=== PATIENT | male | born 1960 | race Asian ===

== ENCOUNTER 2018-09-13 11:48 | Inpatient (IN) | payer OTHER ==
[~2018-09-13] VITALS: Ht 157.5 cm; Wt 56.2 kg
[2018-09-13] VITALS (11 sets, daily range): BP systolic 81–182; BP diastolic 45–84; PULSE 88–108; RESP 15–21; Ht 157.5 cm; Wt 56.2 kg
[~2018-09-13 11:48] MED LIST: POTASSIUM CHLORIDE 20 MEQ/SW 100 ML IVPB ONE
--- NOTE | 2018-09-13 12:21 | HPN ---
Date/Time of Note Date/Time of Note DATE: 09/13/18 TIME: 12:21 Interval H&P Admission Note Pt. seen H&P reviewed: No system changes AMARILIS RIBERA MD September 13, 2018 12:21
[2018-09-13] MEDS ORDERED: LABE100T7 PO (12:48)
[2018-09-13] MEDS ORDERED: PRAV10TA43 PO (12:48)
[2018-09-13] MEDS ORDERED: FOLI-49 PO (12:51)
[2018-09-13] MEDS ORDERED: PRAV20TA63 PO (12:52)
[2018-09-13] MEDS ORDERED: CLOP75TA27 PO (12:52)
[2018-09-13] MEDS ORDERED: LEFL20TA PO (12:55)
[2018-09-13] MEDS ORDERED: NIFE30TA23 PO (12:55)
[2018-09-13] MEDS ORDERED: IRON150C5 PO (12:56)
[2018-09-13] MEDS ORDERED: PHOS250T2 PO (12:58)
[2018-09-13] MEDS ORDERED: NEPH PO (12:58)
[2018-09-13] MEDS ORDERED: LEFL20TA18 PO (13:00)
[2018-09-13] MEDS ORDERED: TACR1CAP PO (13:00)
[2018-09-13] MEDS ORDERED: CALC0.5C10 PO (13:01)
--- NOTE | 2018-09-13 14:09 | PREAC ---
Date/Time of Note Date/Time of Note DATE: 09/13/18 TIME: 14:07 Anesthesia Eval and Record Evaluation Time Pre-Procedure Interview DATE: 09/13/18 TIME: 14:07 Age 58 Sex male NPO: 8 hrs Preoperative diagnosis Lt leg PVD Planned procedure Lt BKA Past Medical History Past Medical History: Includes Cardio: HTN, Dyslipidemia Renal: CKD, Other (S/P kidney transplant) Surgery & Anesthesia Issues No known issue Meds Anticoagulation: Yes Beta Claudine within 24 hr: Yes Reported Medications Calcitriol* (Calcitriol*) 0.5 Mcg Capsule, 0.5 MCG PO TID, CAP 09/13/18 Leflunomide* (Leflunomide*) 20 Mg Tablet, 20 MG PO BID, #30 TAB 09/13/18 Tacrolimus* (Tacrolimus*) 1 Mg Capsule, 1 MG PO TID, CAP 09/13/18 Multivit/Ca Carb/B Cmplx/Fa* (Flor-Elisa*) 1 Tab Tab, 1 TAB PO DAILY, TAB 09/13/18 Phosphorus #1 (Phospha 250 Neutral Tablet) 250 Mg Tablet, 1000 MG PO BID, TAB 09/13/18 Iron Polysaccharides Complex (Ferrex 150) 150 Mg Capsule, 150 MG PO BID, #30 CAP 09/13/18 Nifedipine* (Nifedipine ER*) 30 Mg Tablet.sa, 30 MG PO DAILY, TAB.SA 09/13/18 Leflunomide* (Arava*) 20 Mg Tablet, 20 MG PO BID, TAB 09/13/18 Pravastatin Sodium* (Pravastatin Sodium*) 20 Mg Tablet, 20 MG PO HS, TAB 09/13/18 Clopidogrel Bisulfate (Clopidogrel) 75 Mg Tablet, 75 MG PO DAILY, #30 TAB 09/13/18 Folic Acid* (Folic Acid*) 1 Mg Tablet, 1 MG PO DAILY, TAB 09/13/18 Labetalol Hcl* (Labetalol Hcl*) 100 Mg Tablet, 100 MG PO BID, TAB 09/13/18 Discontinued Reported Medications Pravastatin Sodium* (Pravastatin Sodium*) 10 Mg Tablet, 5 MG PO HS, TAB 09/13/18 Meds reviewed: Yes Allergies Coded Allergies: No Known Allergy (Unverified , 09/13/18) Allergies Reviewed: Yes Labs/Studies Labs Reviewed: Reviewed by anesthesiologist Result Diagram: 09/13/18 1254 09/13/18 1254 Laboratory Tests 09/13/18 12:54 test: N/A Studies: ECG Pre-procedure Exam Last vitals Vital Signs Date Temp Pulse Resp B/P (MAP) Pulse Ox O2 O2 Flow FiO2 Time Delivery Rate 09/13/18 98.7 96 16 182/84 97 Room Air 13:11 (116) Airway: Adequate mouth opening, Adequate thyromental dist Mallampati: Mallampati II Teeth: Normal Lung: Normal Heart: Normal ASA Physical Status ASA physical status: 3 Emergency: None Planned Anesthetic General/MAC: LMA, MAC Neuraxial: Spinal Planned Pain Management Sub-arachniod narcotics, Parenteral pain med Pre-operative Attestations Prior to commencing anesthesia and surgery, the patient was re-evaluated, there was verification of: *The patient's identity *The results of appropriate recent lab work and preoperative vital signs *The above evaluation not changing prior to induction *Anesthetic plan, risk benefits, alternative and complications discussed with patient/family; questions answered; patient/family understands, accepts and wishes to proceed. DION GALVAN MD September 13, 2018 14:09
[2018-09-13] MEDS ORDERED: FENTAnyl 50 MCG/ML VIAL ONE ×2 (14:14→14:45)
[2018-09-13] MEDS ORDERED: MIDAZOLAM 1 MG/ML 2 ML INJ ONE (14:15)
[2018-09-13] MEDS ORDERED: morphine SULFATE/PF (10 MG/10 ML) INJ ONE (14:16)
[2018-09-13] MEDS ORDERED: VANCOMYCIN 1 GM (PMX) 250 ML ONE (14:38)
[2018-09-13] MEDS ORDERED: METOPROLOL 5 MG INJ ONE ×3 (14:42→15:58)
[2018-09-13] MEDS ORDERED: hydrALAzine 20 MG INJ ONE ×2 (14:45→15:07)
[2018-09-13] MEDS ORDERED: POLYMYXIN B 500000 UNIT INJ ONE (14:55)
[2018-09-13] MEDS ORDERED: BACITRACIN 50000 UNITS INJ IRR ONE (15:07)
[2018-09-13] MEDS ORDERED: LABETALOL HCL 20MG INJ ONE (15:29)
[2018-09-13] MEDS ORDERED: nitroGLYCerin 50 MG INJ ONE (15:30)
--- NOTE | 2018-09-13 15:48 | SIPON ---
Date/Time of Note Date/Time of Note DATE: 09/13/18 TIME: 15:46 Operative Report Preoperative Diagnosis L foot gangrene Postoperative Diagnosis same Operation/Procedure Performed L BKA Surgeon see signature line assistant child care teacher none Anesthesia: spinal Estimated blood loss: 50 - 100 ml's Transfusion Required none Specimen L lower leg - severe necrotizing infection to the ankle Grafts/Implants none Complications none AMARILIS RIBERA MD September 13, 2018 15:48
[2018-09-13] MEDS ORDERED: MEPERIDINE 100 MG INJ ONE (15:49)
--- NOTE | 2018-09-13 16:19 | PAC ---
Date/Time of Note Date/Time of Note DATE: 09/13/18 TIME: 16:19 Post-Anesthesia Notes Post-Anesthesia Note Last documented vital signs Vital Signs Date Temp Pulse Resp B/P (MAP) Pulse Ox O2 O2 Flow FiO2 Time Delivery Rate 09/13/18 98.7 96 16 182/84 97 Room Air 13:11 (116) Activity: WNL Respiratory function: WNL Cardiovascular function: WNL Mental status: Baseline Pain reasonably controlled: Yes Hydration appropriate: Yes Nausea/Vomiting absent: Yes Comments BP:110/76, P:102, Spo2:100%, T:99,6 DION GALVAN MD September 13, 2018 16:19
[2018-09-13] MEDS ORDERED: DIPHENHYDRAMINE 50 MG INJ IV PRN (16:30)
[2018-09-13] MEDS ORDERED: LABETALOL HCL 20MG INJ IV PRN (16:30)
[2018-09-13] MEDS ORDERED: hydrALAzine 20 MG INJ IV PRN (16:30)
[2018-09-13] MEDS ORDERED: HYDROmorphONE 1 MG/5 ML IV SYRINGE IV PRN ×2 (16:30)
[2018-09-13] MEDS ORDERED: ONDANSETRON 4 MG INJ IV PRN ×2 (16:30→17:00)
[2018-09-13] MEDS ORDERED: NALOXONE (0.4 MG/ML) INJ IV PRN (16:30)
[2018-09-13] MEDS ORDERED: NITROGLYCERIN 50 MG/D5W (PMX) 250 ML IV SCH (16:30)
[2018-09-13] MEDS ORDERED: FENTAnyl 50 MCG/ML VIAL IV PRN (16:30)
--- NOTE | 2018-09-13 16:40 | HP ---
Date/Time of Note Date/Time of Note DATE: 09/13/18 TIME: 16:40 Assessment/Plan VTE Prophylaxis Risk score (from Ns)>0 risk: 2 SCD applied (from [facility] Yes Pharmacological prophylaxis: NA/contraindicated Pharm contraindication: surgical contra Lines/Catheters IV Catheter Type (from [facility]): Peripheral IV Assessment/Plan Hospital Course 58-year-old male with comorbidities include hypertension, end-stage renal disease status post renal transplant, peripheral vascular disease, and right foot wound status post a TMA in the recent past with a stump infection that was non-salvageable who underwent an urgent left below-knee amputation on 09/13/2018. 1. Severe left peripheral artery disease with infected left TMA stump. -Status post urgent left below-knee amputation on 09/13/2018. -Antibiotics will be deferred to ID. 2. Hypotension status post surgical procedure. -Etiology could be secondary to the multiple antihypertensives that he received in the operating room. -The patient's blood pressure will be closely monitored. -The patient will be currently treated with IV fluids. 3. Sepsis with leukocytosis, febrile illness, and lactic acidosis. -Etiology unclear. Possibly from residual infection of the left lower extremity. -Pancultures have been sent. -Antibiotics as per infectious diseases. 4. Hypertension (history). -Resume antihypertensives once the patient's blood pressure is stabilized. 5. Dyslipidemia. -Resume statins once the patient is able to tolerate oral intake. 6. Peripheral vascular disease. -Resume oral medications once able to tolerate oral intake. -Hold antiplatelets because of recent surgery. 7. History of renal transplant. -Resume immunosuppressants. -Obtain nephrology consult. 8. Normocytic anemia. -Etiology could be multifactorial. -Resume iron supplements once able to tolerate oral intake. Plan: The patient will be admitted to inpatient intensive care unit floor. The patient will be started on a low-cholesterol diet once he is awake and alert. The patient will be started on DVT prophylaxis (RLE SCD) and gastrointestinal prophylaxis. The patient will remain a full code. Activities will be bedrest. The rest of the patient's management will be based on the clinical course, inputs from consultants, and the results of diagnostic studies. Based on the patient's clinical presentation, he most probably requires at least 2 midnights' stay for further management and evaluation of his clinical presentation. The patient was seen in collaboration with Dr. Eric. Result Diagram: 09/13/18 1254 09/13/18 1254 Results 24hrs Laboratory Tests Test 09/13/18 12:54 White Blood Count 20.3 H Red Blood Count 3.85 L Hemoglobin 10.3 L Hematocrit 32.6 L Mean Corpuscular Volume 84.7 Mean Corpuscular Hemoglobin 26.8 L Mean Corpuscular Hemoglobin Concent 31.6 L Red Cell Distribution Width 14.7 H Platelet Count 266 Mean Platelet Volume 9.6 Immature Granulocytes % 1.100 H Neutrophils % 85.9 H Lymphocytes % 4.3 L Monocytes % 7.6 Eosinophils % 0.9 Basophils % 0.2 Nucleated Red Blood Cells % 0.0 Immature Granulocytes # 0.220 H Neutrophils # 17.5 H Lymphocytes # 0.9 Monocytes # 1.5 H Eosinophils # 0.2 Basophils # 0.1 Nucleated Red Blood Cells # 0.0 CBC Results Faxed/Phoned 1 *H Prothrombin Time 14.3 Prothrombin Time Ratio 1.1 INR International Normalized Ratio 1.10 Activated Partial Thromboplast Time 34.3 Sodium Level 139 Potassium Level 3.0 L Chloride Level 102 Carbon Dioxide Level 31 Anion Gap 6 Blood Urea Nitrogen 15 Creatinine 1.47 H Est Glomerular Filtrat Rate mL/min 49 L Glucose Level 127 Calcium Level 9.5 Total Bilirubin 0.7 Direct Bilirubin 0.00 Indirect Bilirubin 0.7 Aspartate Amino Transf (AST/SGOT) 44 Alanine Aminotransferase (ALT/SGPT) 68 Alkaline Phosphatase 268 H Total Protein 6.9 Albumin 3.1 L Globulin 3.80 H Albumin/Globulin Ratio 0.81 HPI/ROS Admit Date/Time Admit Date/Time September 13, 2018 at 11:48 Hx of Present Illness This is a 58-year-old male with past medical history of hypertension, dyslipidemia, chronic kidney disease status post renal transplant in 2007, severe peripheral vascular disease, and extensive left foot gangrene. The patient had a transmetatarsal amputation at [facility] because of extremity gangrene and infection of the left foot and the surgeon consulted Dr. Cortes for further evaluation because of extensive left lower extremity arterial disease. The patient underwent an angiogram as outpatient that was showing complete occlusion of the left peroneal and posterior tibial arteries. The patient was started on p.o. Augmentin with no improvement. The patient's TMA stump became more necrotic with foul-smelling drainage and the foot was no longer salvageable anyway and that the patient was brought to [facility] for urgent left below-knee amputation. The patient had a left below-knee amputation on 09/13/2018. Intraoperatively, the patient had significant hypertension and the patient had to be given multiple doses of antihypertensives. The patient became hypotensive postoperatively. Therefore, the patient was moved to the intensive care unit for further monitoring postoperatively. Meanwhile, the patient was noticed to have leukocytosis with a WBC of 20.3. The patient also had febrile illness when he arrived in the ICU. The patient was somnolent at the time of initial evaluation. Details were obtained by review of the patient's medications and by talking to the vascular surgeon. ROS Subjective hx not possible: pt critical PMH/Family/Social Past Medical History 1. Hypertension. 2. Peripheral vascular disease. 3. Dyslipidemia. 4. Status post kidney transplant. 5. Iron deficiency. Medications Current Medications Hydromorphone HCl (Dilaudid) 0.2 mg PACU PRN IV MILD PAIN 1-3; Start 09/13/18 at 16:30; Stop 09/13/18 at 22:00 Hydromorphone HCl (Dilaudid) 0.4 mg PACU PRN IV MOD PAIN 4-6; Start 09/13/18 at 16:30; Stop 09/13/18 at 22:00 Fentanyl (Sublimaze) 25 mcg PACU ORDER PRN IV MILD PAIN 1-3; Start 09/13/18 at 16:30; Stop 09/13/18 at 22:00 Ondansetron HCl (Zofran Inj) 4 mg PACU ORDER PRN IV NAUSEA/VOMITING; Start 09/13/18 at 16:30; Stop 09/13/18 at 22:00 Labetalol HCl (Labetalol) 5 mg PACU ORDER PRN IV HIGH BLOOD PRESSURE; Start 09/13/18 at 16:30; Stop 09/13/18 at 22:00 Hydralazine HCl (Apresoline) 5 mg PACU ORDER PRN IV HIGH BLOOD PRESSURE; Start 09/13/18 at 16:30; Stop 09/13/18 at 22:00 Diphenhydramine HCl (Benadryl) 25 mg PACU ORDER PRN IV .PRURITUS; Start 09/13/18 at 16:30; Stop 09/13/18 at 22:00 Nitroglycerin/ Dextrose 250 ml @ 1.5 mls/hr PER PROTOCOL IV ; Start 09/13/18 at 16:30 Naloxone HCl (Narcan) 0.2 mg Q2M PRN IV .RESP RATE; Start 09/13/18 at 16:30; Stop 09/13/18 at 22:00 Miscellaneous Information (* Miscellaneous Pharmacy Order) DURAMORPH: 0.2 MG SPI... GIVEN NEURAXIAL XX ; Start 09/13/18 at 16:30 Coded Allergies: cefazolin (Verified Allergy, Unknown, HIVES, 09/13/18) Past Surgical History 1. Kidney transplant. 2. Right upper extremity AV fistula placement. 3. Left upper extremity AV fistula placement. Social History Unable to obtain social history. Exam/Review of Systems Vital Signs Vitals Vital Signs Date Temp Pulse Resp B/P (MAP) Pulse Ox O2 O2 Flow FiO2 Time Delivery Rate 09/13/18 99.0 16:27 09/13/18 96 16 182/84 97 Room Air 13:11 (116) Exam Exam General: Adequately build 58 year-old male lying in bed. HEENT: Normocephalic, atraumatic. Eyes: Anicteric sclerae, conjunctivae clear. ENT: Nasal septum midline, oral mucosa is dry. Neck supple, no JVD noticed. Respiratory: Bilaterally diminished breath sounds. No adventitious breath sounds. Remains on a O2 mask. Cardiovascular: S1, S2 heard. Regular rate and rhythm. Abdomen: Soft, nontender, and nondistended. Bowel sounds positive in all 4 quadrants. Genitourinary: Deferred. Extremities: No cyanosis, no clubbing, no edema. Left BKA stump dressing. Neurologic: The patient is somnolent. Skin: Normal skin turgor. No skin rashes. Additional Comments CXR IMPRESSION: No radiographic evidence of an acute cardiopulmonary process. Cardiomegaly. Aortic atherosclerosis. DOMINIQUE BURGESS NP September 13, 2018 16:40
[2018-09-13] MEDS ORDERED: SOD CHLORIDE 0.9% 1,000 ML IV SCH (16:42)
[2018-09-13] MEDS ORDERED: ACETAMINOPHEN 650 MG SUPP PR PRN (17:00)
[2018-09-13] MEDS ORDERED: NACL 0.9% 3 ML SYG IV SCH (17:00)
--- NOTE | 2018-09-13 17:22 | OPR ---
DATE OF OPERATION: 09/13/2018 PREOPERATIVE DIAGNOSIS: Extensive left foot gangrene. POSTOPERATIVE DIAGNOSIS: Extensive left foot gangrene. PROCEDURE PERFORMED: Left below knee amputation. SURGEON: Amarilis Cortes MD ANESTHESIA: Spinal anesthesia. ESTIMATED BLOOD LOSS: 100 mL. COMPLICATIONS: There are no intraprocedural complications. INDICATIONS: A 58-year-old hypertensive gentleman with end-stage renal disease. He has had a kidney transplant many years ago and has been functioning well. He developed gangrene of one of the toes a bout 8 months ago. He has had several interventions at an interventional radiology facility somewher e in [place] over the last 6 or 8 months. I saw him for the first time about a week ago, saw him at [facility] after Dr. Borges had consulted me after he had done a TMA because of the extensive thais grene and infection in the foot. I ordered some arterial studies that showed tibial disease. He was sent home from [place] and I had scheduled him for an urgent angiogram on Sunday of this week, 3 days ago, because of the arterial duplex that showed sort of diffuse tibial disease. Two of his tib ial vessels were occluded. The third was severely diseased. I did the angiogram earlier this week a nd the peroneal and posterior tibial arteries were completely occluded. The anterior tibial had kitty re distal disease and severe disease in the dorsalis pedis. I treated that, but I saw him yesterday in the office. I put him on p.o. Augmentin, but he had no improvement. Actually the stump was more necrotic, foul smelling drainage and the foot has no longer appeared salvageable in anyway, so I brou ght him in today for an urgent left below knee amputation. DESCRIPTION OF PROCEDURE: The patient was brought to the operating room and placed on the table in s upine position. After induction of spinal anesthesia, left leg was prepped and draped in the usual s terile fashion. I began by making a below knee amputation flaps in the left leg, made an anterior fl ap 11 cm long, beginning at the tibial tuberosity with posterior flap 13 cm long. I made incisions d own the medial aspect from lateral aspect of the calf midway between of the leg. Once I made the inc ision, I used electrocautery to divide all the soft tissue at the lower edge of the anterior flap. I divided the anterior tibial neurovascular bundle with 2-0 silk ties x2 and divided it. I dissected down through right anterior calf muscles until I had the tibia exposed and the fibula exposed. I the n used the periosteal elevator to lift soft tissue off of the tibia for several centimeters proximall y and from the fibula as well. I then used power saw to divide the tibia at the lower edge of the an terior flap. I used a bone cutter to cut the fibula several centimeters above where I cut the tibia. I then jackknifed the leg and used the long sharp blade to cut the soft tissue off the backside of the tibia and fibula until I reached the end of the posterior flap and I transected it sharply. I th en got hemostasis using electrocautery and multiple 3-0 silk sutures to tie off the little bleeders. I then beveled the anterior edge of the tibia using the power saw to use like a rasp. I then irriga franco with pulse jet percussion instructor and the tissue at this level was very healthy. There is a lot of edema, but there is no infection. The skin was all healthy. A lot of fibrosis and chronic venous stasis c hanges but no sign of any infection in this level and the bone was very healthy at this level as well . I then reapproximated the anterior and posterior flap using multiple 2-0 Vicryl sutures to approxi mate the fascia, then used surgical eros for the skin. Sterile dressing was applied. Compression wrap was applied. He was then placed into a knee immobilizer. He was then transferred to the ICU i n stable condition. He tolerated the procedure well without any complication. [facility] was sent to the [facility] because Dr. Portillo from anesthesia was having very hard time controlling his blood pressure despite multiple IV meds. Dictated By: AMARILIS DELGADO/WADE Conf#: [id number] DID#: [id number] CC: ERIN MONTOYA MD; ANANYA BORGES DPM; KARLENE DANIEL MD; FE BOWLES MD;*EndCC*
[2018-09-13] MEDS: POTASSIUM CHLORIDE 100 ML IVPB SCH (17:29)
[2018-09-13] MEDS ORDERED: VANCOMYCIN IV PER PHARMACY XX SCH (18:30)
--- NOTE | 2018-09-13 18:32 | CONS ---
Assessment/Plan Assessment/Plan Hospital Course (Demo Recall) - sepsis due to possible residual infection of LLE vs. other HAIs such as pneumonia - possible residual infection of LLE - draining wound, necrosis and infection of L TMA site - h/o gangrene and infection of L foot - hypertension - h/o renal transplant, maintained on tacrolimus - adverse reaction to cefazolin (hives) recommendations - pending results: cultures of blood - I instructed Pt's RN to collect urinalysis and urine culture that were ordered already - will repeat lactic acid in AM, will check procalcitonin too - start IV vancomycin, add meropenem (09/13/2018-) empirically management d/w Pt's RN Fabby. the total time I took to care for bis PT today was from 1715 to 1800 Consultation Date/Type/Reason Admit Date/Time September 13, 2018 at 11:48 Date of Consultation: September 13, 2018 Type of Consult ID Reason for Consultation sepsis due to possible skin and soft tissue infection of RLE vs. SIRS Requesting Provider: DOMINIQUE VAUGHAN NP Date/Time of Note DATE: 09/13/18 TIME: 18:11 Hx of Present Illness This is a 58 yo male with h/o kidney transplant. Pt underwent TMA due to chronic gangrene and infection of L foot. Subsequently angiogram identified severe tibial disease. According to Dr. Jackman's note, the stump site of L TMA was not healing; it became necrotic and draining. Pt was given a trial of PO Augmentin but the limb appeared non-salvageable. As a result Pt underwent L BKA today. According to the intra-operative record, Pt was afebrile throughout the procedure. He was hypertensive requiring multiple anti-hypertensive meds. Pt was stabilized in PACU and was brought to ICU. About 20 min after the arrival, he had temp 102.4F and his SBP was in 90s. Pancultures were ordered, and lactic acid returned 3.9. GEORGE Vaughan requested ID consultation on this Pt. Subjective hx not possible: pt non-verbal (came from PACU approximately 2 min ago), pt critical status Past Medical History Medical History: hypertension, renal disease, other (PVD) Home Meds Reported Medications Calcitriol* (Calcitriol*) 0.5 Mcg Capsule, 0.5 MCG PO TID, CAP 09/13/18 Leflunomide* (Leflunomide*) 20 Mg Tablet, 20 MG PO BID, #30 TAB 09/13/18 Tacrolimus* (Tacrolimus*) 1 Mg Capsule, 1 MG PO TID, CAP 09/13/18 Multivit/Ca Carb/B Cmplx/Fa* (Flor-Elisa*) 1 Tab Tab, 1 TAB PO DAILY, TAB 09/13/18 Phosphorus #1 (Phospha 250 Neutral Tablet) 250 Mg Tablet, 1000 MG PO BID, TAB 09/13/18 Iron Polysaccharides Complex (Ferrex 150) 150 Mg Capsule, 150 MG PO BID, #30 CAP 09/13/18 Nifedipine* (Nifedipine ER*) 30 Mg Tablet.sa, 30 MG PO DAILY, TAB.SA 09/13/18 Leflunomide* (Arava*) 20 Mg Tablet, 20 MG PO BID, TAB 09/13/18 Pravastatin Sodium* (Pravastatin Sodium*) 20 Mg Tablet, 20 MG PO HS, TAB 09/13/18 Clopidogrel Bisulfate (Clopidogrel) 75 Mg Tablet, 75 MG PO DAILY, #30 TAB 09/13/18 Folic Acid* (Folic Acid*) 1 Mg Tablet, 1 MG PO DAILY, TAB 09/13/18 Labetalol Hcl* (Labetalol Hcl*) 100 Mg Tablet, 100 MG PO BID, TAB 09/13/18 Discontinued Reported Medications Pravastatin Sodium* (Pravastatin Sodium*) 10 Mg Tablet, 5 MG PO HS, TAB 09/13/18 Medications Current Medications Hydromorphone HCl (Dilaudid) 0.2 mg PACU PRN IV MILD PAIN 1-3; Start 09/13/18 at 16:30; Stop 09/13/18 at 22:00 Hydromorphone HCl (Dilaudid) 0.4 mg PACU PRN IV MOD PAIN 4-6; Start 09/13/18 at 16:30; Stop 09/13/18 at 22:00 Fentanyl (Sublimaze) 25 mcg PACU ORDER PRN IV MILD PAIN 1-3; Start 09/13/18 at 16:30; Stop 09/13/18 at 22:00 Ondansetron HCl (Zofran Inj) 4 mg PACU ORDER PRN IV NAUSEA/VOMITING; Start 09/13/18 at 16:30; Stop 09/13/18 at 22:00 Labetalol HCl (Labetalol) 5 mg PACU ORDER PRN IV HIGH BLOOD PRESSURE; Start 09/13/18 at 16:30; Stop 09/13/18 at 22:00 Hydralazine HCl (Apresoline) 5 mg PACU ORDER PRN IV HIGH BLOOD PRESSURE; Start 09/13/18 at 16:30; Stop 09/13/18 at 22:00 Diphenhydramine HCl (Benadryl) 25 mg PACU ORDER PRN IV .PRURITUS; Start 09/13/18 at 16:30; Stop 09/13/18 at 22:00 Nitroglycerin/ Dextrose 250 ml @ 1.5 mls/hr PER PROTOCOL IV ; Start 09/13/18 at 16:30 Naloxone HCl (Narcan) 0.2 mg Q2M PRN IV .RESP RATE; Start 09/13/18 at 16:30; Stop 09/13/18 at 22:00 Miscellaneous Information (* Miscellaneous Pharmacy Order) DURAMORPH: 0.2 MG SPI... GIVEN NEURAXIAL XX ; Start 09/13/18 at 16:30 Sodium Chloride 1,000 ml @ 75 mls/hr [id number] IV Last administered on 09/13/18at 17:22; Admin Dose 75 MLS/HR; Start 09/13/18 at 16:42; Stop 09/14/18 at 06:01 IV Flush (NS 3 ml) 3 ml PER PROTOCOL IV ; Start 09/13/18 at 17:00 Acetaminophen (Tylenol Supp) 650 mg Q6H PRN [place] Fever; Start 09/13/18 at 17:00 Ondansetron HCl (Zofran Inj) 4 mg Q4H PRN IV NAUSEA AND/OR VOMITING; Start 09/13/18 at 17:00 Calcitriol (Rocaltrol) 0.5 mcg TID PO ; Start 09/13/18 at 21:00 Folic Acid (Folic Acid) 1 mg DAILY PO ; Start 09/14/18 at 09:00 Labetalol HCl (Normodyne) 100 mg BID PO ; Start 09/13/18 at 21:00 Leflunomide (Arava) 20 mg BID PO ; Start 09/13/18 at 21:00 Multivit/Ca Carb/ B Cmplx/FA/Prenat (Flor-Elisa) 1 tab DAILY PO ; Start 09/14/18 at 09:00 Nifedipine (Procardia Xl) 30 mg DAILY PO ; Start 09/14/18 at 09:00 Sodium Phosphate (Kphos Neutral) 1,000 mg BID PO ; Start 09/13/18 at 21:00 Tacrolimus (Prograf) 1 mg Q8 PO ; Start 09/13/18 at 22:00 Potassium Chloride 100 ml @ 50 mls/hr Q2H IVPB Last administered on 09/13/18at 17:29; Admin Dose 50 MLS/HR; Start 09/13/18 at 17:30; Stop 09/13/18 at 21:29 Hydromorphone HCl (Dilaudid) 1 mg Q4H PRN IV SEVERE PAIN LEVEL 7-10; Start 09/13/18 at 17:30 Vancomycin HCl (Vanco Iv Per Pharmacy) VANCOMYCIN PER PHARMACY PER PROTOCOL XX ; Start 09/13/18 at 18:30; Status UNV Meropenem/Sodium Chloride 50 ml @ 100 mls/hr Q12 IVPB ; Start 09/13/18 at 21:00; Status UNV Allergies: Coded Allergies: cefazolin (Verified Allergy, Unknown, HIVES, 09/13/18) Past Surgical History Past Surgical Hx: other (s/p renal transplant) Exam/Review of Systems Exam Vitals Vital Signs Date Temp Pulse Resp B/P (MAP) Pulse Ox O2 O2 Flow FiO2 Time Delivery Rate 09/13/18 99.0 16:27 09/13/18 107 16:00 09/13/18 16 182/84 97 Room Air 13:11 (116) Constitutional: non-verbal, frail Psych: no complaints, nl mood/affect Head: normocephalic, atraumatic Eyes: nl conjunctiva, nl lids, nl sclera ENMT: nl external ears & nose, nl nasal mucosa & septum, mucosa pink and moist, other (dry mucus membranes, +face mask) Neck: other (not swollen) Respiratory: congested cough Cardiovascular: regular rate and rhythm, nl pulses Gastrointestinal: soft, non-tender; No distended, No tender Genitourinary - Male: other (FC) Musculoskeletal: nl extremities to inspection; No swelling Extremities: other (s/p L BKA) 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: lethargic Skin: No rash or lesions Results Result Diagram: 09/13/18 1254 09/13/18 1254 Results 24hrs Laboratory Tests Test 09/13/18 12:51 09/13/18 12:54 09/13/18 17:03 Hemoglobin A1c 5.8 White Blood Count 20.3 H Red Blood Count 3.85 L Hemoglobin 10.3 L Hematocrit 32.6 L Mean Corpuscular Volume 84.7 Mean Corpuscular Hemoglobin 26.8 L Mean Corpuscular Hemoglobin Concent 31.6 L Red Cell Distribution Width 14.7 H Platelet Count 266 Mean Platelet Volume 9.6 Immature Granulocytes % 1.100 H Neutrophils % 85.9 H Lymphocytes % 4.3 L Monocytes % 7.6 Eosinophils % 0.9 Basophils % 0.2 Nucleated Red Blood Cells % 0.0 Immature Granulocytes # 0.220 H Neutrophils # 17.5 H Lymphocytes # 0.9 Monocytes # 1.5 H Eosinophils # 0.2 Basophils # 0.1 Nucleated Red Blood Cells # 0.0 CBC Results Faxed/Phoned 1 *H Prothrombin Time 14.3 Prothrombin Time Ratio 1.1 INR International Normalized Ratio 1.10 Activated Partial Thromboplast Time 34.3 Sodium Level 139 Potassium Level 3.0 L Chloride Level 102 Carbon Dioxide Level 31 Anion Gap 6 Blood Urea Nitrogen 15 Creatinine 1.47 H Est Glomerular Filtrat Rate mL/min 49 L Glucose Level 127 Calcium Level 9.5 Total Bilirubin 0.7 Direct Bilirubin 0.00 Indirect Bilirubin 0.7 Aspartate Amino Transf (AST/SGOT) 44 Alanine Aminotransferase (ALT/SGPT) 68 Alkaline Phosphatase 268 H Total Protein 6.9 Albumin 3.1 L Globulin 3.80 H Albumin/Globulin Ratio 0.81 Lactic Acid Level 3.9 *H Magnesium Level 1.7 C-Reactive Protein 22.3 H Triglycerides Level 103 Cholesterol Level 139 LDL Cholesterol, Calculated 94 HDL Cholesterol 24 L Cholesterol/HDL Ratio 5.7 Medications Medication Current Medications Hydromorphone HCl (Dilaudid) 0.2 mg PACU PRN IV MILD PAIN 1-3; Start 09/13/18 at 16:30; Stop 09/13/18 at 22:00 Hydromorphone HCl (Dilaudid) 0.4 mg PACU PRN IV MOD PAIN 4-6; Start 09/13/18 at 16:30; Stop 09/13/18 at 22:00 Fentanyl (Sublimaze) 25 mcg PACU ORDER PRN IV MILD PAIN 1-3; Start 09/13/18 at 16:30; Stop 09/13/18 at 22:00 Ondansetron HCl (Zofran Inj) 4 mg PACU ORDER PRN IV NAUSEA/VOMITING; Start 09/13/18 at 16:30; Stop 09/13/18 at 22:00 Labetalol HCl (Labetalol) 5 mg PACU ORDER PRN IV HIGH BLOOD PRESSURE; Start 09/13/18 at 16:30; Stop 09/13/18 at 22:00 Hydralazine HCl (Apresoline) 5 mg PACU ORDER PRN IV HIGH BLOOD PRESSURE; Start 09/13/18 at 16:30; Stop 09/13/18 at 22:00 Diphenhydramine HCl (Benadryl) 25 mg PACU ORDER PRN IV .PRURITUS; Start 09/13/18 at 16:30; Stop 09/13/18 at 22:00 Nitroglycerin/ Dextrose 250 ml @ 1.5 mls/hr PER PROTOCOL IV ; Start 09/13/18 at 16:30 Naloxone HCl (Narcan) 0.2 mg Q2M PRN IV .RESP RATE; Start 09/13/18 at 16:30; Stop 09/13/18 at 22:00 Miscellaneous Information (* Miscellaneous Pharmacy Order) DURAMORPH: 0.2 MG SPI... GIVEN NEURAXIAL XX ; Start 09/13/18 at 16:30 Sodium Chloride 1,000 ml @ 75 mls/hr [id number] IV Last administered on 09/13/18at 17:22; Admin Dose 75 MLS/HR; Start 09/13/18 at 16:42; Stop 09/14/18 at 06:01 IV Flush (NS 3 ml) 3 ml PER PROTOCOL IV ; Start 09/13/18 at 17:00 Acetaminophen (Tylenol Supp) 650 mg Q6H PRN [place] Fever; Start 09/13/18 at 17:00 Ondansetron HCl (Zofran Inj) 4 mg Q4H PRN IV NAUSEA AND/OR VOMITING; Start 09/13/18 at 17:00 Calcitriol (Rocaltrol) 0.5 mcg TID PO ; Start 09/13/18 at 21:00 Folic Acid (Folic Acid) 1 mg DAILY PO ; Start 09/14/18 at 09:00 Labetalol HCl (Normodyne) 100 mg BID PO ; Start 09/13/18 at 21:00 Leflunomide (Arava) 20 mg BID PO ; Start 09/13/18 at 21:00 Multivit/Ca Carb/ B Cmplx/FA/Prenat (Flor-Elisa) 1 tab DAILY PO ; Start 09/14/18 at 09:00 Nifedipine (Procardia Xl) 30 mg DAILY PO ; Start 09/14/18 at 09:00 Sodium Phosphate (Kphos Neutral) 1,000 mg BID PO ; Start 09/13/18 at 21:00 Tacrolimus (Prograf) 1 mg Q8 PO ; Start 09/13/18 at 22:00 Potassium Chloride 100 ml @ 50 mls/hr Q2H IVPB Last administered on 09/13/18at 17:29; Admin Dose 50 MLS/HR; Start 09/13/18 at 17:30; Stop 09/13/18 at 21:29 Hydromorphone HCl (Dilaudid) 1 mg Q4H PRN IV SEVERE PAIN LEVEL 7-10; Start 09/13/18 at 17:30 Vancomycin HCl (Vanco Iv Per Pharmacy) VANCOMYCIN PER PHARMACY PER PROTOCOL XX ; Start 09/13/18 at 18:30; Status UNV Meropenem/Sodium Chloride 50 ml @ 100 mls/hr Q12 IVPB ; Start 09/13/18 at 21:00; Status UNV CLARE IRBY M.D. September 13, 2018 18:22
--- NOTE | 2018-09-13 20:02 | CONS ---
DATE OF ADMISSION: 09/13/2018 DATE OF CONSULTATION: TYPE OF CONSULTATION: Renal. Thank you, Dr. Ribera, for asking me to participate in medical management of this patient. REASON FOR CONSULTATION: History of cadaveric kidney transplant. HISTORY OF PRESENT ILLNESS: This 58-year-old man was seen by me today preoperatively and now I am seeing him after he underwent a surgery today. He underwent a left below the knee amputation by Dr. Amarilis Ribera. The patient has had a history of severe peripheral artery disease. He had a left foot that was gangrenous and infected. He had previously undergone a left foot TMA due to chronic gangrene and infection of the left foot. However, a subsequent angiogram showed severe tibial artery disease. Dr. Ribera felt that the left foot was not salvageable and he underwent a left below the knee amputation today. The patient is now in the intensive care unit. He is awake. I spoke to the patient earlier and he told me that he has a history of chronic kidney disease and was on hemodialysis for 7 years up until 2006 when he underwent a of cadaveric kidney transplant at [facility]. The patient says that he developed renal failure initially because of having Legionnaire's disease. PAST MEDICAL HISTORY: Remarkable for: 1. Hypertension. 2. Hyperlipidemia. 3. Peripheral artery disease. 4. Cadaveric kidney transplant in 2006. 5. History of Legionnaire's disease, probably around the year 1999 or prior to that. 6. Anemia. 7. Hypertension. CURRENT MEDICATIONS: Include the followin. Plavix 75 mg a day, which is being held. 2. Iron complex 150 mg twice a day. 3. Labetalol 100 mg twice a day. 4. Nifedipine 30 mg a day. 5. Pravastatin 20 mg a day. 6. Phospha 250 Neutral tablet 1000 mg twice a day. 7. Calcitriol 0.5 mcg a day. 8. Folic acid 1 mg a day. 9. Flor-Elisa 1 tablet daily. 10. Arava 20 mg twice a day. 11. Tacrolimus 1 mg twice a day. ALLERGIES: CEFAZOLIN. PAST SURGICAL HISTORY: Included: 1. Right upper arm AV fistula is now not functioning. 2. Right internal jugular PermCath. 3. Cadaveric kidney transplant in 2006. PHYSICAL EXAMINATION: GENERAL: At this time reveals a well-developed man who is frail. VITAL SIGNS: Currently, blood pressure is 102/60, his heart rate is 96, O2 sat is 94% on room air. HEENT: Head is normocephalic. Eyes: Extraocular muscles are intact. Nose and mouth are normal. NECK: Supple. No neck vein distention. LUNGS: Clear to auscultation. HEART: Regular rhythm. No murmurs, gallops or rubs. ABDOMEN: Soft, nontender. No masses. He does have a right lower quadrant kidney transplant which is nontender. EXTREMITIES: He is status post a left below the knee amputation which was done today. He has trace pretibial edema of the right leg. LABORATORY TESTS: Done today: Sodium 139, potassium 3.0, chloride 102, CO2 of 31, BUN 15, creatinine 1.47. Alkaline phosphatase is elevated at 268, albumin 3.1. White blood count 20,300, hemoglobin 10.3, hematocrit 32.6, platelets 266,000. He has an elevated lactate level at 3.9. He apparently had a fever earlier. IMPRESSION: 1. Status post cadaveric kidney transplant, now on immunosuppressive medication. His serum creatinine is slightly elevated. I am not sure what his baseline serum creatinine has been. Part of the elevation could be related to the fact that he had an infected and gangrenous left foot and now is febrile. 2. Fever with elevated lactate level. The patient is presumed to be septic and is on broad spectrum antibiotics and being seen by infectious disease specialist. 3. History of hypertension. 4. Peripheral artery disease. 5. Distant history of Legionnaire's disease. 6. Hyperlipidemia. 7. He is now postop a left below the knee amputation. PLAN: Patient is being seen in the intensive care unit after undergoing left below the knee amputation for a gangrenous infected left foot. 1. Resume some routine medications including immunosuppressive drugs. 2. Treat with broad spectrum antibiotics as per infectious disease recommendation. 3. I will follow the patient along with you medically and for renal disease. Dictated By: ERIN MONTOYA MD ND/WADE Conf#: [id number] DID#: [id number] CC: AMARILIS RIBERA MD; ZAN BURKETT MD;*EndCC* MTDD
[2018-09-13] MEDS ORDERED: CALCITRIOL 0.25 MCG CAP PO SCH (21:00)
[2018-09-13] MEDS ORDERED: MEROPENEM 1 GM/50ML(PMX) 50 ML IVPB SCH (21:00)
[2018-09-13] MEDS ORDERED: LEFLUNOMIDE 20 MG TAB PO SCH (21:00)
[2018-09-13] MEDS: LABETALOL 100 MG TAB PO SCH (21:00)
[2018-09-13] MEDS: SOD PHOS MONO/DIBAS 250 MG TAB PO SCH (21:10)
[2018-09-13] MEDS ORDERED: TACROLIMUS 1 MG CAP PO SCH (22:00)
[2018-09-13] MEDS ORDERED: DIPHENHYDRAMINE 50 MG INJ IV ONE (22:00)
[2018-09-13] MEDS: TACROLIMUS 1 MG CAP PO SCH (22:07)
[2018-09-13] MEDS: AZTREONAM 2 GM in SOD CHLORIDE 0.9% 100 ML IVPB SCH (22:53)
[2018-09-14] VITALS (20 sets, daily range): BP systolic 94–169; BP diastolic 61–127; PULSE 93–106; RESP 12–33
[2018-09-14] MEDS: POTASSIUM CHLORIDE 100 ML IVPB SCH (00:06)
--- NOTE | 2018-09-14 08:51 | PN ---
Date/Time of Note Date/Time of Note DATE: 09/14/18 TIME: 08:46 Assessment/Plan VTE Prophylaxis Risk score (from Ns)>0 risk: 3 SCD applied (from Ns): Yes Pharmacological prophylaxis: NA/contraindicated Pharm contraindication: surgical contra Lines/Catheters [facility] IV Urinary Cath still in place: Yes Reason Cath still needed: other (indicate) Assessment/Plan Hospital Course SUBJECTIVE: Complains of minimal pain. Blood pressure stable currently. OBJECTIVE: Physical Exam General: Adequately build 58 year-old male lying in bed. HEENT: Normocephalic, atraumatic. Eyes: Anicteric sclerae, conjunctivae clear. ENT: Nasal septum midline, oral mucosa is dry. Neck supple, no JVD noticed. Respiratory: Bilaterally diminished breath sounds. No adventitious breath sounds. Cardiovascular: S1, S2 heard. Regular rate and rhythm. Abdomen: Soft, nontender, and nondistended. Bowel sounds positive in all 4 quadrants. Genitourinary: Deferred. Extremities: No cyanosis, no clubbing, no edema. Left BKA stump dressing. Neurologic: The patient is awake, alert, and oriented. Skin: Normal skin turgor. No skin rashes. Labs & Vitals per chart ASSESSMENT & PLAN 58-year-old male with comorbidities include hypertension, end-stage renal disease status post renal transplant, peripheral vascular disease, and right foot wound status post a TMA in the recent past with a stump infection that was non-salvageable who underwent an urgent left below-knee amputation on 09/13/2018. 1. Severe left peripheral artery disease with infected left TMA stump. -Status post urgent left below-knee amputation on 09/13/2018. -Antibiotics as per ID. 2. Hypotension status post surgical procedure. -Etiology could be secondary to the multiple antihypertensives that he received in the operating room. -Resolved. 3. Sepsis with leukocytosis, febrile illness, and lactic acidosis. -Etiology unclear. Possibly from residual infection of the left lower extremity. -Pancultures have been sent. -Antibiotics as per infectious diseases. 4. Hypertension (history). -Continue antihypertensives. 5. Dyslipidemia. -Continue statins. 6. Peripheral vascular disease. -Continue statins -Hold antiplatelets because of recent surgery. 7. History of renal transplant. -Continue immunosuppressants. -Nephrology following. 8. Normocytic anemia. -Etiology could be multifactorial. -Continue iron supplements. 9. Fluids, electrolytes, and nutrition. -Low-cholesterol diet. 10. DVT prophylaxis. -Right lower extremity SCD. 11 plan. -Continue antimicrobials as per ID. -Closely monitor blood pressure. -Transfer the patient to telemetry floor. Critical care time: 35 minutes. The patient was seen in collaboration with Dr. Eric. Result Diagram: 09/14/1828 09/14/18527 Results 24hrs Laboratory Tests Test 09/13/18 12:51 09/13/18 12:54 09/13/18 12:57 09/13/18 16:51 Hemoglobin A1c 5.8 White Blood Count 20.3 H Red Blood Count 3.85 L Hemoglobin 10.3 L Hematocrit 32.6 L Mean Corpuscular 84.7 Volume Mean Corpuscular 26.8 L Hemoglobin Mean Corpuscular 31.6 L Hemoglobin Concent Red Cell 14.7 H Distribution Width Platelet Count 266 Mean Platelet Volume 9.6 Immature 1.100 H Granulocytes % Neutrophils % 85.9 H Lymphocytes % 4.3 L Monocytes % 7.6 Eosinophils % 0.9 Basophils % 0.2 Nucleated Red Blood 0.0 Cells % Immature 0.220 H Granulocytes # Neutrophils # 17.5 H Lymphocytes # 0.9 Monocytes # 1.5 H Eosinophils # 0.2 Basophils # 0.1 Nucleated Red Blood 0.0 Cells # CBC Results 1 *H Faxed/Phoned Prothrombin Time 14.3 Prothrombin Time 1.1 Ratio INR International 1.10 Normalized Ratio Activated 34.3 Partial Thromboplast Time Sodium Level 139 Potassium Level 3.0 L Chloride Level 102 Carbon Dioxide Level 31 Anion Gap 6 Blood Urea Nitrogen 15 Creatinine 1.47 H Est Glomerular 49 L Filtrat Rate mL/min Glucose Level 127 Calcium Level 9.5 Total Bilirubin 0.7 Direct Bilirubin 0.00 Indirect Bilirubin 0.7 Aspartate Amino 44 Transf (AST/SGOT) Alanine 68 Aminotransferase (AL T/SGPT) Alkaline Phosphatase 268 H Total Protein 6.9 Albumin 3.1 L Globulin 3.80 H Albumin/Globulin 0.81 Ratio Erythrocyte 121 H Sedimentation Rate Phosphorus Level 1.8 L Thyroid Stimulating 1.410 Hormone (TSH) Parathyroid Hormone 287.4 H (Intact) Test 09/13/18 17:03 09/14/18 05:28 Lactic Acid Level 3.9 *H 1.1 Magnesium Level 1.7 1.8 C-Reactive Protein 22.3 H Triglycerides Level 103 Cholesterol Level 139 LDL Cholesterol, 94 Calculated HDL Cholesterol 24 L Cholesterol/HDL 5.7 Ratio White Blood Count 12.3 #H Red Blood Count 3.07 #L Hemoglobin 8.2 #L Hematocrit 26.2 L Mean Corpuscular 85.3 Volume Mean Corpuscular 26.7 L Hemoglobin Mean Corpuscular 31.3 L Hemoglobin Concent Red Cell 15.2 H Distribution Width Platelet Count 233 Mean Platelet Volume 10.4 Immature 1.000 H Granulocytes % Neutrophils % 82.4 H Lymphocytes % 7.4 L Monocytes % 7.3 Eosinophils % 1.5 Basophils % 0.4 Nucleated Red Blood 0.0 Cells % Immature 0.120 H Granulocytes # Neutrophils # 10.1 H Lymphocytes # 0.9 Monocytes # 0.9 Eosinophils # 0.2 Basophils # 0.1 Nucleated Red Blood 0.0 Cells # Prothrombin Time 14.7 Prothrombin Time 1.1 Ratio INR International 1.14 Normalized Ratio Activated 38.8 H Partial Thromboplast Time Sodium Level 141 Potassium Level 3.5 Chloride Level 110 Carbon Dioxide Level 28 Anion Gap 3 L Blood Urea Nitrogen 17 Creatinine 1.36 H Est Glomerular 54 L Filtrat Rate mL/min Glucose Level 88 Hemoglobin A1c 5.8 Calcium Level 8.7 Phosphorus Level 2.2 L Total Bilirubin 0.4 Direct Bilirubin 0.00 Indirect Bilirubin 0.4 Aspartate Amino 74 #H Transf (AST/SGOT) Alanine 64 Aminotransferase (AL T/SGPT) Alkaline Phosphatase 174 H Total Protein 5.5 #L Albumin 2.4 L Globulin 3.10 Albumin/Globulin 0.77 Ratio Procalcitonin 10.82 H Exam/Review of Systems Exam Vitals Vital Signs Date Temp Pulse Resp B/P (MAP) Pulse Ox O2 O2 Flow FiO2 Time Delivery Rate 09/14/18 95 08:03 09/14/18 25 122/70 99 Room Air 06:00 (87) 09/14/18 99.0 04:00 09/13/18 4.0 20:00 Intake and Output 09/13/18 09/13/18 09/14/18 1515:00 23:00 07:00 IntakeIntake Total 1662 ml 900 ml OutputOutput Total 595 ml 265 ml BalanceBalance 1067 ml 635 ml Results Results 24hrs Laboratory Tests Test 09/13/18 12:51 09/13/18 12:54 09/13/18 12:57 09/13/18 16:51 Hemoglobin A1c 5.8 White Blood Count 20.3 H Red Blood Count 3.85 L Hemoglobin 10.3 L Hematocrit 32.6 L Mean Corpuscular 84.7 Volume Mean Corpuscular 26.8 L Hemoglobin Mean Corpuscular 31.6 L Hemoglobin Concent Red Cell 14.7 H Distribution Width Platelet Count 266 Mean Platelet Volume 9.6 Immature 1.100 H Granulocytes % Neutrophils % 85.9 H Lymphocytes % 4.3 L Monocytes % 7.6 Eosinophils % 0.9 Basophils % 0.2 Nucleated Red Blood 0.0 Cells % Immature 0.220 H Granulocytes # Neutrophils # 17.5 H Lymphocytes # 0.9 Monocytes # 1.5 H Eosinophils # 0.2 Basophils # 0.1 Nucleated Red Blood 0.0 Cells # CBC Results 1 *H Faxed/Phoned Prothrombin Time 14.3 Prothrombin Time 1.1 Ratio INR International 1.10 Normalized Ratio Activated 34.3 Partial Thromboplast Time Sodium Level 139 Potassium Level 3.0 L Chloride Level 102 Carbon Dioxide Level 31 Anion Gap 6 Blood Urea Nitrogen 15 Creatinine 1.47 H Est Glomerular 49 L Filtrat Rate mL/min Glucose Level 127 Calcium Level 9.5 Total Bilirubin 0.7 Direct Bilirubin 0.00 Indirect Bilirubin 0.7 Aspartate Amino 44 Transf (AST/SGOT) Alanine 68 Aminotransferase (AL T/SGPT) Alkaline Phosphatase 268 H Total Protein 6.9 Albumin 3.1 L Globulin 3.80 H Albumin/Globulin 0.81 Ratio Erythrocyte 121 H Sedimentation Rate Phosphorus Level 1.8 L Thyroid Stimulating 1.410 Hormone (TSH) Parathyroid Hormone 287.4 H (Intact) Test 09/13/18 17:03 09/14/18 05:28 Lactic Acid Level 3.9 *H 1.1 Magnesium Level 1.7 1.8 C-Reactive Protein 22.3 H Triglycerides Level 103 Cholesterol Level 139 LDL Cholesterol, 94 Calculated HDL Cholesterol 24 L Cholesterol/HDL 5.7 Ratio White Blood Count 12.3 #H Red Blood Count 3.07 #L Hemoglobin 8.2 #L Hematocrit 26.2 L Mean Corpuscular 85.3 Volume Mean Corpuscular 26.7 L Hemoglobin Mean Corpuscular 31.3 L Hemoglobin Concent Red Cell 15.2 H Distribution Width Platelet Count 233 Mean Platelet Volume 10.4 Immature 1.000 H Granulocytes % Neutrophils % 82.4 H Lymphocytes % 7.4 L Monocytes % 7.3 Eosinophils % 1.5 Basophils % 0.4 Nucleated Red Blood 0.0 Cells % Immature 0.120 H Granulocytes # Neutrophils # 10.1 H Lymphocytes # 0.9 Monocytes # 0.9 Eosinophils # 0.2 Basophils # 0.1 Nucleated Red Blood 0.0 Cells # Prothrombin Time 14.7 Prothrombin Time 1.1 Ratio INR International 1.14 Normalized Ratio Activated 38.8 H Partial Thromboplast Time Sodium Level 141 Potassium Level 3.5 Chloride Level 110 Carbon Dioxide Level 28 Anion Gap 3 L Blood Urea Nitrogen 17 Creatinine 1.36 H Est Glomerular 54 L Filtrat Rate mL/min Glucose Level 88 Hemoglobin A1c 5.8 Calcium Level 8.7 Phosphorus Level 2.2 L Total Bilirubin 0.4 Direct Bilirubin 0.00 Indirect Bilirubin 0.4 Aspartate Amino 74 #H Transf (AST/SGOT) Alanine 64 Aminotransferase (AL T/SGPT) Alkaline Phosphatase 174 H Total Protein 5.5 #L Albumin 2.4 L Globulin 3.10 Albumin/Globulin 0.77 Ratio Procalcitonin 10.82 H Medications Medication Current Medications Miscellaneous Information (* Miscellaneous Pharmacy Order) DURAMORPH: 0.2 MG SPI... GIVEN NEURAXIAL XX ; Start 09/13/18 at 16:30 IV Flush (NS 3 ml) 3 ml PER PROTOCOL IV ; Start 09/13/18 at 17:00 Acetaminophen (Tylenol Supp) 650 mg Q6H PRN MS Fever; Start 09/13/18 at 17:00 Ondansetron HCl (Zofran Inj) 4 mg Q4H PRN IV NAUSEA AND/OR VOMITING; Start 09/13/18 at 17:00 Folic Acid (Folic Acid) 1 mg DAILY PO ; Start 09/14/18 at 09:00 Labetalol HCl (Normodyne) 100 mg BID PO ; Start 09/13/18 at 21:00 Multivit/Ca Carb/ B Cmplx/FA/Prenat (Flor-Elisa) 1 tab DAILY PO ; Start 09/14/18 at 09:00 Nifedipine (Procardia Xl) 30 mg DAILY PO ; Start 09/14/18 at 09:00 Sodium Phosphate (Kphos Neutral) 1,000 mg BID PO Last administered on 09/13/18at 21:10; Admin Dose 1,000 MG; Start 09/13/18 at 21:00 Hydromorphone HCl (Dilaudid) 1 mg Q4H PRN IV SEVERE PAIN LEVEL 7-10; Start 09/13/18 at 17:30 Vancomycin HCl (Vanco Iv Per Pharmacy) VANCOMYCIN PER PHARMACY PER PROTOCOL XX ; Start 09/13/18 at 18:30 Calcitriol (Rocaltrol) 0.5 mcg DAILY PO ; Start 09/14/18 at 09:00 Tacrolimus (Prograf) 1 mg BID PO Last administered on 09/13/18at 22:07; Admin Dose 1 MG; Start 09/13/18 at 22:00 Leflunomide (Arava) 20 mg DAILY PO ; Start 09/14/18 at 09:00 Vancomycin/Sodium Chloride 250 ml @ 125 mls/hr Q24H IVPB ; Start 09/14/18 at 15:00 Aztreonam 2 gm/ Sodium Chloride 100 ml @ 100 mls/hr Q12 IVPB Last administered on 09/13/18at 22:53; Admin Dose 100 MLS/HR; Start 09/13/18 at 22:00 Calcitriol (Rocaltrol) 0.5 mcg TID PO ; Start 09/14/18 at 09:00; Status UNV Clopidogrel Bisulfate (plaVIX) 75 mg DAILY PO ; Start 09/14/18 at 09:00; Status UNV Folic Acid (Folic Acid) 1 mg DAILY PO ; Start 09/14/18 at 09:00; Status UNV Labetalol HCl (Normodyne) 100 mg BID PO ; Start 09/14/18 at 09:00; Status UNV Leflunomide (Arava) 20 mg BID PO ; Start 09/14/18 at 09:00; Status UNV Leflunomide (Arava) 20 mg BID PO ; Start 09/14/18 at 09:00; Status UNV Multivit/Ca Carb/ B Cmplx/FA/Prenat (Flor-Elisa) 1 tab DAILY PO ; Start 09/14/18 at 09:00; Status UNV Nifedipine (Procardia Xl) 30 mg DAILY PO ; Start 09/14/18 at 09:00; Status UNV DOMINIQUE BURGESS NP Sep 14, 2018 08:50
[2018-09-14] MEDS: AZTREONAM 2 GM in SOD CHLORIDE 0.9% 100 ML IVPB SCH ×2 (09:00→22:56)
[2018-09-14] MEDS ORDERED: SOD PHOS MONO/DIBAS 250 MG TAB PO SCH (09:00)
[2018-09-14] MEDS ORDERED: CLOPIDOGREL 75 MG TAB PO SCH (09:00)
[2018-09-14] MEDS ORDERED: NIFEdipine (XL) 30 MG TAB PO SCH (09:00)
[2018-09-14] MEDS ORDERED: FOLIC ACID 1 MG TAB PO SCH (09:00)
[2018-09-14] MEDS ORDERED: MULTIVIT/CA CARB/B CMPLX/FA TAB PO SCH (09:00)
[2018-09-14] MEDS ORDERED: LEFLUNOMIDE 20 MG TAB PO SCH ×2 (09:00)
[2018-09-14] MEDS ORDERED: TACROLIMUS 1 MG CAP PO SCH (09:00)
[2018-09-14] MEDS ORDERED: CALCITRIOL 0.25 MCG CAP PO SCH (09:00)
[2018-09-14] MEDS ORDERED: LABETALOL 100 MG TAB PO SCH (09:00)
[2018-09-14] MEDS: SOD PHOS MONO/DIBAS 250 MG TAB PO SCH ×2 (09:00→23:06)
--- NOTE | 2018-09-14 11:36 | PN ---
Date/Time of Note Date/Time of Note DATE: 09/14/18 TIME: 11:34 Assessment/Plan Lines/Catheters [facility]dn [facility] Yes Assessment/Plan Assessment/Plan Doing well s/p L BKA for extensive gangrene - all infected tissue was removed Will change dressing in a week Stump protector Would benefit from acute rehab if eligible Subjective 24 Hr Interval Summary No c/o. Exam/Review of Systems Vital Signs Vitals Vital Signs Date Temp Pulse Resp B/P (MAP) Pulse Ox O2 O2 Flow FiO2 Time Delivery Rate 09/14/18 98 33 127/106 96 Room Air 10:00 (113) 09/14/18 98.8 08:00 09/13/18 4.0 20:00 Intake and Output 09/13/18 09/13/18 09/14/18 1515:00 23:00 07:00 IntakeIntake Total 1662 ml 900 ml OutputOutput Total 595 ml 265 ml BalanceBalance 1067 ml 635 ml Exam Free Text/Dictation L BKA stump dressed, no staining, knee immobilizer in place Results Result Diagram: 09/14/18 0528 09/14/18 0528 AMARILIS RIBERA MD Sep 14, 2018 11:36
[2018-09-14] MEDS ORDERED: POTASSIUM CHLORIDE (SR) 20 MEQ TAB PO STA (12:31)
--- NOTE | 2018-09-14 12:31 | CONS ---
Assessment/Plan Assessment/Plan Hospital Course (Demo Recall) 1. Kidney transplant status. The patient had a cadaveric kidney transplant in 2006. He is on immunosuppressive therapy. His renal function today is improved. He had an infected gangrenous left foot and was septic. 2. He is now 1 day postop a left below the knee amputation. His left foot was infected and gangrenous. 3. Hypertension 4. Peripheral artery disease 5. Anemia 6. Hyperlipidemia. Consultation Date/Type/Reason Admit Date/Time September 13, 2018 at 11:48 Initial Consult Date 09/13/18 Type of Consult Nephrology Requesting Provider: DOMINIQUE BURGESS NP Date/Time of Note DATE: 09/14/18 TIME: 12:27 24 HR Interval Summary Free Text/Dictation This patient is being seen in nephrologic follow-up. He is in the intensive care unit. He is 1 day postop of a left below the knee amputation for a foot that was gangrenous and infected. He is awake and alert. He is feeling better. He is sitting up eating lunch. Constitutional: no complaints, improved Exam/Review of Systems Exam Vitals Vital Signs Date Temp Pulse Resp B/P (MAP) Pulse Ox O2 O2 Flow FiO2 Time Delivery Rate 09/14/18 98 33 127/106 96 Room Air 10:00 (113) 09/14/18 98.8 08:00 09/13/18 4.0 20:00 Intake and Output 09/13/18 09/13/18 09/14/18 1515:00 23:00 07:00 IntakeIntake Total 1662 ml 900 ml OutputOutput Total 595 ml 265 ml BalanceBalance 1067 ml 635 ml Exam He is status post a left below the knee amputation. Constitutional: alert, oriented, frail Respiratory: clear to auscultation, normal air movement Cardiovascular: regular rate and rhythm Gastrointestinal: soft, non-tender Results Result Diagram: 09/14/18 0528 09/14/18 0528 Results 24hrs Laboratory Tests Test 09/13/18 12:51 09/13/18 12:54 09/13/18 12:57 09/13/18 16:51 Hemoglobin A1c 5.8 White Blood Count 20.3 H Red Blood Count 3.85 L Hemoglobin 10.3 L Hematocrit 32.6 L Mean Corpuscular 84.7 Volume Mean Corpuscular 26.8 L Hemoglobin Mean Corpuscular 31.6 L Hemoglobin Concent Red Cell 14.7 H Distribution Width Platelet Count 266 Mean Platelet Volume 9.6 Immature 1.100 H Granulocytes % Neutrophils % 85.9 H Lymphocytes % 4.3 L Monocytes % 7.6 Eosinophils % 0.9 Basophils % 0.2 Nucleated Red Blood 0.0 Cells % Immature 0.220 H Granulocytes # Neutrophils # 17.5 H Lymphocytes # 0.9 Monocytes # 1.5 H Eosinophils # 0.2 Basophils # 0.1 Nucleated Red Blood 0.0 Cells # CBC Results 1 *H Faxed/Phoned Prothrombin Time 14.3 Prothrombin Time 1.1 Ratio INR International 1.10 Normalized Ratio Activated 34.3 Partial Thromboplast Time Sodium Level 139 Potassium Level 3.0 L Chloride Level 102 Carbon Dioxide Level 31 Anion Gap 6 Blood Urea Nitrogen 15 Creatinine 1.47 H Est Glomerular 49 L Filtrat Rate mL/min Glucose Level 127 Calcium Level 9.5 Total Bilirubin 0.7 Direct Bilirubin 0.00 Indirect Bilirubin 0.7 Aspartate Amino 44 Transf (AST/SGOT) Alanine 68 Aminotransferase (AL T/SGPT) Alkaline Phosphatase 268 H Total Protein 6.9 Albumin 3.1 L Globulin 3.80 H Albumin/Globulin 0.81 Ratio Erythrocyte 121 H Sedimentation Rate Phosphorus Level 1.8 L Thyroid Stimulating 1.410 Hormone (TSH) Parathyroid Hormone 287.4 H (Intact) Test 09/13/18 17:03 09/13/18 20:00 09/14/18 05:28 Lactic Acid Level 3.9 *H 1.1 Magnesium Level 1.7 1.8 C-Reactive Protein 22.3 H Triglycerides Level 103 Cholesterol Level 139 LDL Cholesterol, 94 Calculated HDL Cholesterol 24 L Cholesterol/HDL 5.7 Ratio Urine Color YELLOW Urine Clarity CLEAR Urine pH 6.0 Urine Specific 1.015 [place] Urine Ketones TRACE A Urine Nitrite NEGATIVE Urine Bilirubin NEGATIVE Urine Urobilinogen NEGATIVE Urine Leukocyte NEGATIVE Esterase Urine Hemoglobin NEGATIVE Urine Glucose NEGATIVE Urine Total Protein NEGATIVE White Blood Count 12.3 #H Red Blood Count 3.07 #L Hemoglobin 8.2 #L Hematocrit 26.2 L Mean Corpuscular 85.3 Volume Mean Corpuscular 26.7 L Hemoglobin Mean Corpuscular 31.3 L Hemoglobin Concent Red Cell 15.2 H Distribution Width Platelet Count 233 Mean Platelet Volume 10.4 Immature 1.000 H Granulocytes % Neutrophils % 82.4 H Lymphocytes % 7.4 L Monocytes % 7.3 Eosinophils % 1.5 Basophils % 0.4 Nucleated Red Blood 0.0 Cells % Immature 0.120 H Granulocytes # Neutrophils # 10.1 H Lymphocytes # 0.9 Monocytes # 0.9 Eosinophils # 0.2 Basophils # 0.1 Nucleated Red Blood 0.0 Cells # Prothrombin Time 14.7 Prothrombin Time 1.1 Ratio INR International 1.14 Normalized Ratio Activated 38.8 H Partial Thromboplast Time Sodium Level 141 Potassium Level 3.5 Chloride Level 110 Carbon Dioxide Level 28 Anion Gap 3 L Blood Urea Nitrogen 17 Creatinine 1.36 H Est Glomerular 54 L Filtrat Rate mL/min Glucose Level 88 Hemoglobin A1c 5.8 Calcium Level 8.7 Phosphorus Level 2.2 L Total Bilirubin 0.4 Direct Bilirubin 0.00 Indirect Bilirubin 0.4 Aspartate Amino 74 #H Transf (AST/SGOT) Alanine 64 Aminotransferase (AL T/SGPT) Alkaline Phosphatase 174 H Total Protein 5.5 #L Albumin 2.4 L Globulin 3.10 Albumin/Globulin 0.77 Ratio Procalcitonin 10.82 H Medications Medication Current Medications Miscellaneous Information (* Miscellaneous Pharmacy Order) DURAMORPH: 0.2 MG SPI... GIVEN NEURAXIAL XX ; Start 09/13/18 at 16:30 IV Flush (NS 3 ml) 3 ml PER PROTOCOL IV ; Start 09/13/18 at 17:00 Acetaminophen (Tylenol Supp) 650 mg Q6H PRN [place] Fever; Start 09/13/18 at 17:00 Ondansetron HCl (Zofran Inj) 4 mg Q4H PRN IV NAUSEA AND/OR VOMITING; Start 09/13/18 at 17:00 Folic Acid (Folic Acid) 1 mg DAILY PO ; Start 09/14/18 at 09:00 Labetalol HCl (Normodyne) 100 mg BID PO ; Start 09/13/18 at 21:00 Multivit/Ca Carb/ B Cmplx/FA/Prenat (Flor-Elisa) 1 tab DAILY PO ; Start 09/14/18 at 09:00 Nifedipine (Procardia Xl) 30 mg DAILY PO ; Start 09/14/18 at 09:00 Sodium Phosphate (Kphos Neutral) 1,000 mg BID PO Last administered on 09/13/18at 21:10; Admin Dose 1,000 MG; Start 09/13/18 at 21:00 Hydromorphone HCl (Dilaudid) 1 mg Q4H PRN IV SEVERE PAIN LEVEL 7-10; Start 09/13/18 at 17:30 Vancomycin HCl (Vanco Iv Per Pharmacy) VANCOMYCIN PER PHARMACY PER PROTOCOL XX ; Start 09/13/18 at 18:30 Calcitriol (Rocaltrol) 0.5 mcg DAILY PO ; Start 09/14/18 at 09:00 Tacrolimus (Prograf) 1 mg BID PO Last administered on 09/13/18at 22:07; Admin Dose 1 MG; Start 09/13/18 at 22:00 Leflunomide (Arava) 20 mg DAILY PO ; Start 09/14/18 at 09:00 Vancomycin/Sodium Chloride 250 ml @ 125 mls/hr Q24H IVPB ; Start 09/14/18 at 15:00 Aztreonam 2 gm/ Sodium Chloride 100 ml @ 100 mls/hr Q12 IVPB Last administered on 09/13/18at 22:53; Admin Dose 100 MLS/HR; Start 09/13/18 at 22:00 ERIN MONTOYA MD Sep 14, 2018 12:31
[2018-09-14] MEDS: LEFLUNOMIDE 20 MG TAB PO SCH (12:41)
[2018-09-14] MEDS: CALCITRIOL 0.25 MCG CAP PO SCH (12:41)
[2018-09-14] MEDS: LABETALOL 100 MG TAB PO SCH ×2 (12:41→22:55)
[2018-09-14] MEDS: MULTIVIT/CA CARB/B CMPLX/FA TAB PO SCH (12:42)
[2018-09-14] MEDS: NIFEdipine (XL) 30 MG TAB PO SCH (12:42)
[2018-09-14] MEDS: TACROLIMUS 1 MG CAP PO SCH ×2 (12:42→22:55)
[2018-09-14] MEDS: FOLIC ACID 1 MG TAB PO SCH (12:42)
[2018-09-14] MEDS: VANCOMYCIN 750 MG (PMX) 250 ML IVPB SCH (14:31)
--- NOTE | 2018-09-14 23:05 | CONS ---
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 ESR 121 on 09/12/2018. 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 All the infected tissue was removed by L BKA according to Dr. Cortes progress note - h/o gangrene and infection of L foot - hypertension - h/o renal transplant at [facility], maintained on tacrolimus - adverse reaction to cefazolin (hives), meropenem (pruritus) recommendations - pending results: cultures of blood and urine - repeat procalcitonin and lactic acid in AM - continue IV vancomycin, and aztreonam (09/13/2018-) empirically management d/w Pt and her RN Claude Consultation Date/Type/Reason Admit Date/Time September 13, 2018 at 11:48 Initial Consult Date 09/13/18 Type of Consult ID Requesting Provider: DOMINIQUE BURGESS NP Date/Time of Note DATE: 09/14/18 TIME: 22:58 24 HR Interval Summary Constitutional: improved Detailed Summary Eyes: no complaints ENT: no complaints Respiratory: shortness of breath (intermittent) Cardiovascular: no complaints Gastrointestinal: decreased appetite Genitourinary: other (FC) Musculoskeletal: restricted range of motion, swelling, other (s/p L BKA) Skin: pruritis (he had pruritus with aztrenam infusion), other (pain from the incision site) Neurologic: no complaints Endocrine: no complaints Exam/Review of Systems Exam Vitals Vital Signs Date Temp Pulse Resp B/P (MAP) Pulse Ox O2 O2 Flow FiO2 Time Delivery Rate 09/14/18 98.7 106 18 169/88 94 20:00 (115) 09/14/18 Room Air 16:12 09/13/18 4.0 20:00 Intake and Output 09/13/18 09/13/18 09/14/18 1515:00 23:00 07:00 IntakeIntake Total 1662 ml 900 ml OutputOutput Total 595 ml 325 ml BalanceBalance 1067 ml 575 ml Constitutional: alert, frail Psych: no complaints Head: normocephalic, atraumatic Eyes: nl conjunctiva, nl sclera ENMT: nl external ears & nose, nl nasal mucosa & septum, mucosa pink and moist Neck: supple Respiratory: clear to auscultation, normal air movement Cardiovascular: regular rate and rhythm, nl pulses Gastrointestinal: soft, non-tender; No distended Musculoskeletal: spine non-tender, other (s/p L BKA) Extremities: No edema 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, nl speech Skin: nl turgor; No rash or lesions Results Result Diagram: 09/14/18 0528 09/14/18 0528 Results 24hrs Laboratory Tests Test 09/14/18 05:28 09/14/18 14:15 White Blood Count 12.3 #H Red Blood Count 3.07 #L Hemoglobin 8.2 #L Hematocrit 26.2 L Mean Corpuscular Volume 85.3 Mean Corpuscular Hemoglobin 26.7 L Mean Corpuscular Hemoglobin Concent 31.3 L Red Cell Distribution Width 15.2 H Platelet Count 233 Mean Platelet Volume 10.4 Immature Granulocytes % 1.000 H Neutrophils % 82.4 H Lymphocytes % 7.4 L Monocytes % 7.3 Eosinophils % 1.5 Basophils % 0.4 Nucleated Red Blood Cells % 0.0 Immature Granulocytes # 0.120 H Neutrophils # 10.1 H Lymphocytes # 0.9 Monocytes # 0.9 Eosinophils # 0.2 Basophils # 0.1 Nucleated Red Blood Cells # 0.0 Prothrombin Time 14.7 Prothrombin Time Ratio 1.1 INR International Normalized Ratio 1.14 Activated Partial Thromboplast Time 38.8 H Sodium Level 141 Potassium Level 3.5 Chloride Level 110 Carbon Dioxide Level 28 Anion Gap 3 L Blood Urea Nitrogen 17 Creatinine 1.36 H Est Glomerular Filtrat Rate mL/min 54 L Glucose Level 88 Hemoglobin A1c 5.8 Lactic Acid Level 1.1 Calcium Level 8.7 Phosphorus Level 2.2 L Magnesium Level 1.8 Total Bilirubin 0.4 Direct Bilirubin 0.00 Indirect Bilirubin 0.4 Aspartate Amino Transf (AST/SGOT) 74 #H Alanine Aminotransferase (ALT/SGPT) 64 Alkaline Phosphatase 174 H Total Protein 5.5 #L Albumin 2.4 L Globulin 3.10 Albumin/Globulin Ratio 0.77 Procalcitonin 10.82 H Iron Level 24 L Total Iron Binding Capacity 156 L Percent Iron Saturation 15 L Ferritin 880.0 H Medications Medication Current Medications Miscellaneous Information (* Miscellaneous Pharmacy Order) DURAMORPH: 0.2 MG SPI... GIVEN NEURAXIAL XX ; Start 09/13/18 at 16:30 IV Flush (NS 3 ml) 3 ml PER PROTOCOL IV ; Start 09/13/18 at 17:00 Acetaminophen (Tylenol Supp) 650 mg Q6H PRN [place] Fever; Start 09/13/18 at 17:00 Ondansetron HCl (Zofran Inj) 4 mg Q4H PRN IV NAUSEA AND/OR VOMITING; Start 09/13/18 at 17:00 Folic Acid (Folic Acid) 1 mg DAILY PO Last administered on 09/14/18 12:42; Admin Dose 1 MG; Start 09/14/18 at 09:00 Labetalol HCl (Normodyne) 100 mg BID PO Last administered on 09/14/18 12:41; Admin Dose 100 MG; Start 09/13/18 at 21:00 Multivit/Ca Carb/ B Cmplx/FA/Prenat (Flor-Elisa) 1 tab DAILY PO Last administered on 09/14/18 12:42; Admin Dose 1 TAB; Start 09/14/18 at 09:00 Nifedipine (Procardia Xl) 30 mg DAILY PO Last administered on 09/14/18 12:42; Admin Dose 30 MG; Start 09/14/18 at 09:00 Sodium Phosphate (Kphos Neutral) 1,000 mg BID PO Last administered on 09/14/18 09:00; Admin Dose 1,000 MG; Start 09/13/18 at 21:00 Hydromorphone HCl (Dilaudid) 1 mg Q4H PRN IV SEVERE PAIN LEVEL 7-10; Start 09/13/18 at 17:30 Vancomycin HCl (Vanco Iv Per Pharmacy) VANCOMYCIN PER PHARMACY PER PROTOCOL XX ; Start 09/13/18 at 18:30 Calcitriol (Rocaltrol) 0.5 mcg DAILY PO Last administered on 09/14/18 12:41; Admin Dose 0.5 MCG; Start 09/14/18 at 09:00 Tacrolimus (Prograf) 1 mg BID PO Last administered on 09/14/18 12:42; Admin Dose 1 MG; Start 09/13/18 at 22:00 Leflunomide (Arava) 20 mg DAILY PO Last administered on 09/14/18 12:41; Admin Dose 20 MG; Start 09/14/18 at 09:00 Vancomycin/Sodium Chloride 250 ml @ 125 mls/hr Q24H IVPB Last administered on 09/14/18at 14:31; Admin Dose 125 MLS/HR; Start 09/14/18 at 15:00 Aztreonam 2 gm/ Sodium Chloride 100 ml @ 100 mls/hr Q12 IVPB Last administered on 09/14/18at 09:00; Admin Dose 100 MLS/HR; Start 09/13/18 at 22:00 CLARE IRBY M.D. Sep 14, 2018 23:05
[2018-09-15] VITALS (11 sets, daily range): BP systolic 118–160; BP diastolic 67–83; PULSE 91–99; RESP 16–20
[2018-09-15] MEDS: LEFLUNOMIDE 20 MG TAB PO SCH (08:40)
[2018-09-15] MEDS: TACROLIMUS 1 MG CAP PO SCH ×2 (08:40→21:50)
[2018-09-15] MEDS: LABETALOL 100 MG TAB PO SCH ×2 (08:41→21:51)
[2018-09-15] MEDS: SOD PHOS MONO/DIBAS 250 MG TAB PO SCH ×2 (08:42→21:51)
[2018-09-15] MEDS: FOLIC ACID 1 MG TAB PO SCH (08:43)
[2018-09-15] MEDS: MULTIVIT/CA CARB/B CMPLX/FA TAB PO SCH (08:43)
[2018-09-15] MEDS: CALCITRIOL 0.25 MCG CAP PO SCH (08:43)
[2018-09-15] MEDS: NIFEdipine (XL) 30 MG TAB PO SCH (08:44)
[2018-09-15] MEDS: AZTREONAM 2 GM in SOD CHLORIDE 0.9% 100 ML IVPB SCH ×2 (08:44→21:50)
[2018-09-15] MEDS ORDERED: MAGNESIUM SULFATE 3 GM in DEXTROSE 5% 100 ML IVPB ONE (09:30)
[2018-09-15] MEDS ORDERED: POTASSIUM PHOSPHATE 15 MM in SOD CHLORIDE 0.9% 250 ML IVPB ONE (10:00)
--- NOTE | 2018-09-15 10:37 | PN ---
Date/Time of Note Date/Time of Note DATE: 09/15/18 TIME: 10:36 Assessment/Plan VTE Prophylaxis Risk score (from Ns)>0 risk: 7 SCD applied (from Ns): Yes Pharmacological prophylaxis: NA/contraindicated Pharm contraindication: other Lines/Catheters [facility] Urinary Cath still in place: Yes Reason Cath still needed: other (indicate) (To be discontinued.) Assessment/Plan Hospital Course SUBJECTIVE: Complains of minimal pain. Blood pressure stable currently. OBJECTIVE: Physical Exam General: Adequately build 58 year-old male lying in bed. HEENT: Normocephalic, atraumatic. Eyes: Anicteric sclerae, conjunctivae clear. ENT: Nasal septum midline, oral mucosa is dry. Neck supple, no JVD noticed. Respiratory: Bilaterally diminished breath sounds. No adventitious breath sounds. Cardiovascular: S1, S2 heard. Regular rate and rhythm. Abdomen: Soft, nontender, and nondistended. Bowel sounds positive in all 4 quadrants. Genitourinary: Deferred. Extremities: No cyanosis, no clubbing, no edema. Left BKA stump dressing. Neurologic: The patient is awake, alert, and oriented. Skin: Normal skin turgor. No skin rashes. Labs & Vitals per chart ASSESSMENT & PLAN 58-year-old male with comorbidities include hypertension, end-stage renal disease status post renal transplant, peripheral vascular disease, and right foot wound status post a TMA in the recent past with a stump infection that was non-salvageable who underwent an urgent left below-knee amputation on 09/13/2018. 1. Severe left peripheral artery disease with infected left TMA stump. -Status post urgent left below-knee amputation on 09/13/2018. -Antibiotics as per ID. 2. Hypotension status post surgical procedure. -Etiology could be secondary to the multiple antihypertensives that he received in the operating room. -Resolved. 3. Sepsis with leukocytosis, febrile illness, and lactic acidosis. -Etiology unclear. Possibly from residual infection of the left lower extremity. -Pancultures have been sent. -Antibiotics as per infectious diseases. 4. Hypertension (history). -Continue antihypertensives. 5. Dyslipidemia. -Continue statins. 6. Peripheral vascular disease. -Continue statins -Hold antiplatelets because of recent surgery. 7. History of renal transplant. -Continue immunosuppressants. -Nephrology following. 8. Normocytic anemia. -Etiology could be multifactorial. -Continue iron supplements. 9. Fluids, electrolytes, and nutrition. -Low-cholesterol diet. 10. DVT prophylaxis. -Right lower extremity SCD. 11 plan. -Continue antimicrobials as per ID. -Replete electrolytes. -PT evaluation. The patient was seen in collaboration with Dr. Eric. Result Diagram: 09/15/1851809/15/18518 Results 24hrs Laboratory Tests Test 09/14/18 14:15 09/15/18 05:18 09/15/18 05:19 Iron Level 24 L Total Iron Binding Capacity 156 L Percent Iron Saturation 15 L Ferritin 880.0 H Lactic Acid Level 1.1 Procalcitonin 6.64 H White Blood Count 15.4 #H Red Blood Count 3.38 L Hemoglobin 9.1 L Hematocrit 28.8 L Mean Corpuscular Volume 85.2 Mean Corpuscular Hemoglobin 26.9 L Mean Corpuscular Hemoglobin Concent 31.6 L Red Cell Distribution Width 15.1 H Platelet Count 269 Mean Platelet Volume 10.0 Immature Granulocytes % 1.200 H Neutrophils % 84.6 H Lymphocytes % 4.9 L Monocytes % 7.2 Eosinophils % 1.7 Basophils % 0.4 Nucleated Red Blood Cells % 0.0 Immature Granulocytes # 0.180 H Neutrophils # 13.0 H Lymphocytes # 0.8 Monocytes # 1.1 H Eosinophils # 0.3 Basophils # 0.1 Nucleated Red Blood Cells # 0.0 Sodium Level 136 Potassium Level 3.9 Chloride Level 105 Carbon Dioxide Level 25 Anion Gap 6 Blood Urea Nitrogen 13 Creatinine 1.18 Est Glomerular Filtrat Rate mL/min > 60 Glucose Level 100 Calcium Level 9.0 Phosphorus Level 2.0 L Magnesium Level 1.4 L Exam/Review of Systems Exam Vitals Vital Signs Date Temp Pulse Resp B/P (MAP) Pulse Ox O2 O2 Flow FiO2 Time Delivery Rate 09/15/18 96 08:07 09/15/18 98.5 18 139/83 100 07:22 (101) 09/15/18 Room Air 00:30 09/13/18 4.0 20:00 Intake and Output 09/14/18 09/14/18 09/15/18 1515:00 23:00 07:00 IntakeIntake Total 650 ml 360 ml 600 ml OutputOutput Total 310 ml 400 ml 1700 ml BalanceBalance 340 ml -40 ml -1100 ml Results Results 24hrs Laboratory Tests Test 09/14/18 14:15 09/15/18 05:18 09/15/18 05:19 Iron Level 24 L Total Iron Binding Capacity 156 L Percent Iron Saturation 15 L Ferritin 880.0 H Lactic Acid Level 1.1 Procalcitonin 6.64 H White Blood Count 15.4 #H Red Blood Count 3.38 L Hemoglobin 9.1 L Hematocrit 28.8 L Mean Corpuscular Volume 85.2 Mean Corpuscular Hemoglobin 26.9 L Mean Corpuscular Hemoglobin Concent 31.6 L Red Cell Distribution Width 15.1 H Platelet Count 269 Mean Platelet Volume 10.0 Immature Granulocytes % 1.200 H Neutrophils % 84.6 H Lymphocytes % 4.9 L Monocytes % 7.2 Eosinophils % 1.7 Basophils % 0.4 Nucleated Red Blood Cells % 0.0 Immature Granulocytes # 0.180 H Neutrophils # 13.0 H Lymphocytes # 0.8 Monocytes # 1.1 H Eosinophils # 0.3 Basophils # 0.1 Nucleated Red Blood Cells # 0.0 Sodium Level 136 Potassium Level 3.9 Chloride Level 105 Carbon Dioxide Level 25 Anion Gap 6 Blood Urea Nitrogen 13 Creatinine 1.18 Est Glomerular Filtrat Rate mL/min > 60 Glucose Level 100 Calcium Level 9.0 Phosphorus Level 2.0 L Magnesium Level 1.4 L Medications Medication Current Medications Miscellaneous Information (* Miscellaneous Pharmacy Order) DURAMORPH: 0.2 MG SPI... GIVEN NEURAXIAL XX ; Start 09/13/18 at 16:30 IV Flush (NS 3 ml) 3 ml PER PROTOCOL IV ; Start 09/13/18 at 17:00 Acetaminophen (Tylenol Supp) 650 mg Q6H PRN [place] Fever; Start 09/13/18 at 17:00 Ondansetron HCl (Zofran Inj) 4 mg Q4H PRN IV NAUSEA AND/OR VOMITING; Start 09/13/18 at 17:00 Folic Acid (Folic Acid) 1 mg DAILY PO Last administered on 09/15/18at 08:43; Admin Dose 1 MG; Start 09/14/18 at 09:00 Labetalol HCl (Normodyne) 100 mg BID PO Last administered on 09/15/18at 08:41; Admin Dose 100 MG; Start 09/13/18 at 21:00 Multivit/Ca Carb/ B Cmplx/FA/Prenat (Flor-Elisa) 1 tab DAILY PO Last administered on 09/15/18 08:43; Admin Dose 1 TAB; Start 09/14/18 at 09:00 Nifedipine (Procardia Xl) 30 mg DAILY PO Last administered on 09/15/18at 08:44; Admin Dose 30 MG; Start 09/14/18 at 09:00 Sodium Phosphate (Kphos Neutral) 1,000 mg BID PO Last administered on 09/15/18at 08:42; Admin Dose 1,000 MG; Start 09/13/18 at 21:00 Hydromorphone HCl (Dilaudid) 1 mg Q4H PRN IV SEVERE PAIN LEVEL 7-10; Start 09/13/18 at 17:30 Vancomycin HCl (Vanco Iv Per Pharmacy) VANCOMYCIN PER PHARMACY PER PROTOCOL XX ; Start 09/13/18 at 18:30 Calcitriol (Rocaltrol) 0.5 mcg DAILY PO Last administered on 09/15/18 08:43; Admin Dose 0.5 MCG; Start 09/14/18 at 09:00 Tacrolimus (Prograf) 1 mg BID PO Last administered on 09/15/18 08:40; Admin Dose 1 MG; Start 09/13/18 at 22:00 Leflunomide (Arava) 20 mg DAILY PO Last administered on 09/15/18 08:40; Admin Dose 20 MG; Start 09/14/18 at 09:00 Vancomycin/Sodium Chloride 250 ml @ 125 mls/hr Q24H IVPB Last administered on 09/14/18at 14:31; Admin Dose 125 MLS/HR; Start 09/14/18 at 15:00 Aztreonam 2 gm/ Sodium Chloride 100 ml @ 100 mls/hr Q12 IVPB Last administered on 09/15/18 08:44; Admin Dose 100 MLS/HR; Start 09/13/18 at 22:00 Magnesium Sulfate 3 gm/Dextrose 106 ml @ 35.333 mls/ hr ONCE ONCE IVPB ; Start 09/15/18 at 09:30; Stop 09/15/18 at 12:29 Potassium Phosphate 15 mm/ Sodium Chloride 255 ml @ 63.75 mls/ hr ONCE ONCE IVPB ; Start 09/15/18 at 10:00; Stop 6/2/19 at 13:59 DOMINIQUE BURGESS NP Sep 15, 2018 10:37
--- NOTE | 2018-09-15 12:09 | CONS ---
Assessment/Plan Assessment/Plan Hospital Course (Demo Recall) 1. Kidney transplant status. The patient had a cadaveric kidney transplant in 2006. He is on immunosuppressive therapy. His renal function today is improved. He had an infected gangrenous left foot and was septic. He is overall doing better. We will continue current medication and management. 2. He is now 2 days postop a left below the knee amputation. His left foot was infected and gangrenous. 3. Hypertension 4. Peripheral artery disease 5. Anemia 6. Hyperlipidemia. Consultation Date/Type/Reason Admit Date/Time September 13, 2018 at 11:48 Initial Consult Date 09/13/18 Type of Consult Nephrology Requesting Provider: DOMINIQUE BURGESS NP Date/Time of Note DATE: 09/15/18 TIME: 12:03 24 HR Interval Summary Free Text/Dictation Alphonso is being seen in nephrologic follow-up. He is now 2 days postop left below the knee amputation. He is sitting up eating lunch. He is feeling better. Constitutional: no complaints, improved Exam/Review of Systems Exam Vitals Vital Signs Date Temp Pulse Resp B/P (MAP) Pulse Ox O2 O2 Flow FiO2 Time Delivery Rate 09/15/18 98.7 94 18 160/77 96 11:32 (104) 09/15/18 Room Air 00:30 09/13/18 4.0 20:00 Intake and Output 09/14/18 09/14/18 09/15/18 1515:00 23:00 07:00 IntakeIntake Total 650 ml 360 ml 600 ml OutputOutput Total 310 ml 400 ml 1700 ml BalanceBalance 340 ml -40 ml -1100 ml Exam He is status post a left below the knee amputation. The right leg is normal. Constitutional: alert, oriented, frail Respiratory: clear to auscultation, normal air movement Cardiovascular: regular rate and rhythm Gastrointestinal: soft, non-tender Results Result Diagram: 09/15/1819 09/15/1819 Results 24hrs Laboratory Tests Test 09/14/18 14:15 09/15/18 05:18 09/15/18 05:19 Iron Level 24 L Total Iron Binding Capacity 156 L Percent Iron Saturation 15 L Ferritin 880.0 H Lactic Acid Level 1.1 Procalcitonin 6.64 H White Blood Count 15.4 #H Red Blood Count 3.38 L Hemoglobin 9.1 L Hematocrit 28.8 L Mean Corpuscular Volume 85.2 Mean Corpuscular Hemoglobin 26.9 L Mean Corpuscular Hemoglobin Concent 31.6 L Red Cell Distribution Width 15.1 H Platelet Count 269 Mean Platelet Volume 10.0 Immature Granulocytes % 1.200 H Neutrophils % 84.6 H Lymphocytes % 4.9 L Monocytes % 7.2 Eosinophils % 1.7 Basophils % 0.4 Nucleated Red Blood Cells % 0.0 Immature Granulocytes # 0.180 H Neutrophils # 13.0 H Lymphocytes # 0.8 Monocytes # 1.1 H Eosinophils # 0.3 Basophils # 0.1 Nucleated Red Blood Cells # 0.0 Sodium Level 136 Potassium Level 3.9 Chloride Level 105 Carbon Dioxide Level 25 Anion Gap 6 Blood Urea Nitrogen 13 Creatinine 1.18 Est Glomerular Filtrat Rate mL/min > 60 Glucose Level 100 Calcium Level 9.0 Phosphorus Level 2.0 L Magnesium Level 1.4 L Medications Medication Current Medications Miscellaneous Information (* Miscellaneous Pharmacy Order) DURAMORPH: 0.2 MG SPI... GIVEN NEURAXIAL XX ; Start 09/13/18 at 16:30 IV Flush (NS 3 ml) 3 ml PER PROTOCOL IV ; Start 09/13/18 at 17:00 Acetaminophen (Tylenol Supp) 650 mg Q6H PRN [place] Fever; Start 09/13/18 at 17:00 Ondansetron HCl (Zofran Inj) 4 mg Q4H PRN IV NAUSEA AND/OR VOMITING; Start 09/13/18 at 17:00 Folic Acid (Folic Acid) 1 mg DAILY PO Last administered on 09/15/18at 08:43; Admin Dose 1 MG; Start 09/14/18 at 09:00 Labetalol HCl (Normodyne) 100 mg BID PO Last administered on 09/15/18at 08:41; Admin Dose 100 MG; Start 09/13/18 at 21:00 Multivit/Ca Carb/ B Cmplx/FA/Prenat (Flor-Elisa) 1 tab DAILY PO Last administered on 09/15/18at 08:43; Admin Dose 1 TAB; Start 09/14/18 at 09:00 Nifedipine (Procardia Xl) 30 mg DAILY PO Last administered on 09/15/18at 08:44; A dmin Dose 30 MG; Start 09/14/18 at 09:00 Sodium Phosphate (Kphos Neutral) 1,000 mg BID PO Last administered on 09/15/18 08:42; Admin Dose 1,000 MG; Start 09/13/18 at 21:00 Hydromorphone HCl (Dilaudid) 1 mg Q4H PRN IV SEVERE PAIN LEVEL 7-10; Start 09/13/18 at 17:30 Vancomycin HCl (Vanco Iv Per Pharmacy) VANCOMYCIN PER PHARMACY PER PROTOCOL XX ; Start 09/13/18 at 18:30 Calcitriol (Rocaltrol) 0.5 mcg DAILY PO Last administered on 09/15/18 08:43; Admin Dose 0.5 MCG; Start 09/14/18 at 09:00 Tacrolimus (Prograf) 1 mg BID PO Last administered on 09/15/18 08:40; Admin Dose 1 MG; Start 09/13/18 at 22:00 Leflunomide (Arava) 20 mg DAILY PO Last administered on 09/15/18 08:40; Admin Dose 20 MG; Start 09/14/18 at 09:00 Vancomycin/Sodium Chloride 250 ml @ 125 mls/hr Q24H IVPB Last administered on 09/14/18 14:31; Admin Dose 125 MLS/HR; Start 09/14/18 at 15:00 Aztreonam 2 gm/ Sodium Chloride 100 ml @ 100 mls/hr Q12 IVPB Last administered on 09/15/18 08:44; Admin Dose 100 MLS/HR; Start 09/13/18 at 22:00 Magnesium Sulfate 3 gm/Dextrose 106 ml @ 35.333 mls/ hr ONCE ONCE IVPB Last administered on 09/15/18at 10:40; Admin Dose 35.333 MLS/HR; Start 09/15/18 at 09:30; Stop 09/15/18 at 12:29 Potassium Phosphate 15 mm/ Sodium Chloride 255 ml @ 63.75 mls/ hr ONCE ONCE IVPB Last administered on 09/15/18 11:13; Admin Dose 63.75 MLS/HR; Start 09/15/18 at 10:00; Stop 09/15/18 at 13:59 ERIN MONTOYA MD Sep 15, 2018 12:09
[2018-09-15] MEDS: VANCOMYCIN 750 MG (PMX) 250 ML IVPB SCH (14:22)
--- NOTE | 2018-09-15 22:57 | CONS ---
Assessment/Plan Assessment/Plan Hospital Course (Demo Recall) - sepsis due to possible HAIs such as pneumonia vs. SIRS from BKA, improved - elevated procalcitonin - h/o draining wound, necrosis and infection of L TMA site. ESR 121 on 09/12/2018. 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 All the infected tissue was removed by L BKA according to Dr. Cortes progress note - h/o gangrene and infection of L foot - hypertension - h/o renal transplant at [facility], maintained on tacrolimus - adverse reaction to cefazolin (hives), meropenem (pruritus) recommendations - ordered: repeat procalcitonin - continue IV vancomycin, and aztreonam (09/13/2018-) empirically. If cultures remain negative, and if procalcitonin continues to decline, will d/c antibiotics management d/w Pt Consultation Date/Type/Reason Admit Date/Time September 13, 2018 at 11:48 Initial Consult Date 09/13/18 Type of Consult ID Requesting Provider: DOMINIQUE BURGESS NP Date/Time of Note DATE: 09/15/18 TIME: 22:53 24 HR Interval Summary Constitutional: improved, other (ate) Detailed Summary Eyes: no complaints ENT: no complaints Respiratory: no complaints Cardiovascular: no complaints Gastrointestinal: no complaints Genitourinary: other (FC) Musculoskeletal: restricted range of motion Skin: no complaints; No pruritis Neurologic: no complaints Exam/Review of Systems Exam Vitals Vital Signs Date Temp Pulse Resp B/P (MAP) Pulse Ox O2 O2 Flow FiO2 Time Delivery Rate 09/15/18 98 20:00 09/15/18 98.4 16 151/79 96 19:58 (103) 09/15/18 Room Air 00:30 09/13/18 4.0 20:00 Intake and Output 09/14/18 09/14/18 09/15/18 1515:00 23:00 07:00 IntakeIntake Total 650 ml 360 ml 600 ml OutputOutput Total 310 ml 400 ml 1700 ml BalanceBalance 340 ml -40 ml -1100 ml Constitutional: alert Psych: no complaints, nl mood/affect Head: normocephalic, atraumatic Eyes: nl conjunctiva, nl lids ENMT: nl external ears & nose, nl lips & teeth, nl nasal mucosa & septum, mucosa pink and moist Neck: supple Respiratory: normal air movement Cardiovascular: No edema Gastrointestinal: No distended Genitourinary - Male: other (FC) Musculoskeletal: other (s/p L BKA) Extremities: No edema 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: 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, nl mental status, nl speech, other (less lethargic today) Skin: nl turgor Results Result Diagram: 09/15/18 0519 09/15/18 0519 Results 24hrs Laboratory Tests Test 09/15/18 05:18 09/15/18 05:19 Lactic Acid Level 1.1 Procalcitonin 6.64 H White Blood Count 15.4 #H Red Blood Count 3.38 L Hemoglobin 9.1 L Hematocrit 28.8 L Mean Corpuscular Volume 85.2 Mean Corpuscular Hemoglobin 26.9 L Mean Corpuscular Hemoglobin Concent 31.6 L Red Cell Distribution Width 15.1 H Platelet Count 269 Mean Platelet Volume 10.0 Immature Granulocytes % 1.200 H Neutrophils % 84.6 H Lymphocytes % 4.9 L Monocytes % 7.2 Eosinophils % 1.7 Basophils % 0.4 Nucleated Red Blood Cells % 0.0 Immature Granulocytes # 0.180 H Neutrophils # 13.0 H Lymphocytes # 0.8 Monocytes # 1.1 H Eosinophils # 0.3 Basophils # 0.1 Nucleated Red Blood Cells # 0.0 Sodium Level 136 Potassium Level 3.9 Chloride Level 105 Carbon Dioxide Level 25 Anion Gap 6 Blood Urea Nitrogen 13 Creatinine 1.18 Est Glomerular Filtrat Rate mL/min > 60 Glucose Level 100 Calcium Level 9.0 Phosphorus Level 2.0 L Magnesium Level 1.4 L Medications Medication Current Medications Miscellaneous Information (* Miscellaneous Pharmacy Order) DURAMORPH: 0.2 MG SPI... GIVEN NEURAXIAL XX ; Start 09/13/18 at 16:30 IV Flush (NS 3 ml) 3 ml PER PROTOCOL IV ; Start 09/13/18 at 17:00 Acetaminophen (Tylenol Supp) 650 mg Q6H PRN [place] Fever; Start 09/13/18 at 17:00 Ondansetron HCl (Zofran Inj) 4 mg Q4H PRN IV NAUSEA AND/OR VOMITING; Start 09/13/18 at 17:00 Folic Acid (Folic Acid) 1 mg DAILY PO Last administered on 09/15/18at 08:43; Admin Dose 1 MG; Start 09/14/18 at 09:00 Labetalol HCl (Normodyne) 100 mg BID PO Last administered on 09/15/18 21:51; Admin Dose 100 MG; Start 09/13/18 at 21:00 Multivit/Ca Carb/ B Cmplx/FA/Prenat (Flor-Elisa) 1 tab DAILY PO Last administered on 09/15/18 08:43; Admin Dose 1 TAB; Start 09/14/18 at 09:00 Nifedipine (Procardia Xl) 30 mg DAILY PO Last administered on 09/15/18 08:44; Admin Dose 30 MG; Start 09/14/18 at 09:00 Sodium Phosphate (Kphos Neutral) 1,000 mg BID PO Last administered on 09/15/18 21:51; Admin Dose 1,000 MG; Start 09/13/18 at 21:00 Hydromorphone HCl (Dilaudid) 1 mg Q4H PRN IV SEVERE PAIN LEVEL 7-10; Start 09/13/18 at 17:30 Vancomycin HCl (Vanco Iv Per Pharmacy) VANCOMYCIN PER PHARMACY PER PROTOCOL XX ; Start 09/13/18 at 18:30 Calcitriol (Rocaltrol) 0.5 mcg DAILY PO Last administered on 09/15/18 08:43; Admin Dose 0.5 MCG; Start 09/14/18 at 09:00 Tacrolimus (Prograf) 1 mg BID PO Last administered on 09/15/18 21:50; Admin Dose 1 MG; Start 09/13/18 at 22:00 Leflunomide (Arava) 20 mg DAILY PO Last administered on 09/15/18 08:40; Admin Dose 20 MG; Start 09/14/18 at 09:00 Vancomycin/Sodium Chloride 250 ml @ 125 mls/hr Q24H IVPB Last administered on 09/15/18 14:22; Admin Dose 125 MLS/HR; Start 09/14/18 at 15:00 Aztreonam 2 gm/ Sodium Chloride 100 ml @ 100 mls/hr Q12 IVPB Last administered on 09/15/18 21:50; Admin Dose 100 MLS/HR; Start 09/13/18 at 22:00 Miscellaneous Information (*Rx Drug Level Order Reminder*) 1400 ONCE XX ; Start 09/16/18 at 14:00; Stop 09/16/18 at 14:01 CLARE IRBY M.D. Sep 15, 2018 22:57
[2018-09-16] VITALS (10 sets, daily range): BP systolic 132–152; BP diastolic 66–84; PULSE 82–104; RESP 16–18
[2018-09-16] MEDS: MULTIVIT/CA CARB/B CMPLX/FA TAB PO SCH (08:42)
[2018-09-16] MEDS: CALCITRIOL 0.25 MCG CAP PO SCH (08:42)
[2018-09-16] MEDS: TACROLIMUS 1 MG CAP PO SCH ×2 (08:42→20:50)
[2018-09-16] MEDS: NIFEdipine (XL) 30 MG TAB PO SCH (08:42)
[2018-09-16] MEDS: FOLIC ACID 1 MG TAB PO SCH (08:43)
[2018-09-16] MEDS: LEFLUNOMIDE 20 MG TAB PO SCH (08:43)
[2018-09-16] MEDS: LABETALOL 100 MG TAB PO SCH ×2 (08:44→20:50)
[2018-09-16] MEDS: SOD PHOS MONO/DIBAS 250 MG TAB PO SCH ×2 (08:45→20:49)
[2018-09-16] MEDS: AZTREONAM 2 GM in SOD CHLORIDE 0.9% 100 ML IVPB SCH ×2 (09:43→20:49)
--- NOTE | 2018-09-16 10:04 | PN ---
Date/Time of Note Date/Time of Note DATE: 09/16/18 TIME: 10:02 Assessment/Plan Lines/Catheters IV Catheter Type (from Nrs): Saline Lock Don in Place (from Nrs): No Assessment/Plan Assessment/Plan Doing well s/p L BKA Antibiotics per ID I think he would benefit from acute rehab - will ask for consult Otherwise OK for d/c from my standpoint I will change the dressing later this week Waiting for hard stump protector from [employer] Subjective 24 Hr Interval Summary No c/o. Exam/Review of Systems Vital Signs Vitals Vital Signs Date Temp Pulse Resp B/P (MAP) Pulse Ox O2 O2 Flow FiO2 Time Delivery Rate 09/16/18 104 08:00 09/16/18 98.2 18 152/71 98 07:34 (98) 09/15/18 Room Air 00:30 09/13/18 4.0 20:00 Intake and Output 09/15/18 09/15/18 09/16/18 1515:00 23:00 07:00 IntakeIntake Total 100 ml 400 ml OutputOutput Total 1200 ml 300 ml 1100 ml BalanceBalance -1100 ml 100 ml -1100 ml Exam Free Text/Dictation L BKA stump dressed, knee immobilizer in place, no staining Results Result Diagram: 09/16/18 0505 09/16/18 0505 AMARILIS RIBERA MD Sep 16, 2018 10:04
--- NOTE | 2018-09-16 12:14 | CONS ---
Assessment/Plan Assessment/Plan Hospital Course (Demo Recall) 1. Kidney transplant status. The patient had a cadaveric kidney transplant in 2006. He is on immunosuppressive therapy. His renal function today is back to normal. He had an infected gangrenous left foot and was septic. He is overall doing better. We will continue current medication and management. 2. He is now 3 days postop a left below the knee amputation. His left foot was infected and gangrenous. 3. Hypertension 4. Peripheral artery disease 5. Anemia 6. Hyperlipidemia. Consultation Date/Type/Reason Admit Date/Time September 13, 2018 at 11:48 Initial Consult Date 09/13/18 Type of Consult Nephrology Requesting Provider: DOMINIQUE BURGESS NP Date/Time of Note DATE: 09/16/18 TIME: 12:12 24 HR Interval Summary Free Text/Dictation This patient is being seen in nephrologic follow-up for cadaveric kidney transplant status. He is awake and alert. He feels well. Constitutional: no complaints, improved Exam/Review of Systems Exam Vitals Vital Signs Date Temp Pulse Resp B/P (MAP) Pulse Ox O2 O2 Flow FiO2 Time Delivery Rate 09/16/18 98.6 87 18 139/84 97 11:53 (102) 09/15/18 Room Air 00:30 09/13/18 4.0 20:00 Intake and Output 09/15/18 09/15/18 09/16/18 1515:00 23:00 07:00 IntakeIntake Total 100 ml 400 ml OutputOutput Total 1200 ml 300 ml 1100 ml BalanceBalance -1100 ml 100 ml -1100 ml Exam Status post left below the knee amputation. Constitutional: alert, oriented, well developed Respiratory: clear to auscultation, normal air movement Cardiovascular: regular rate and rhythm Gastrointestinal: soft, non-tender Results Result Diagram: 09/16/18 0505 09/16/18 0505 Results 24hrs Laboratory Tests Test 09/16/18 05:05 White Blood Count 14.2 H Red Blood Count 3.42 L Hemoglobin 9.2 L Hematocrit 29.2 L Mean Corpuscular Volume 85.4 Mean Corpuscular Hemoglobin 26.9 L Mean Corpuscular Hemoglobin Concent 31.5 L Red Cell Distribution Width 15.3 H Platelet Count 273 Mean Platelet Volume 10.1 Immature Granulocytes % 1.100 H Neutrophils % 83.7 H Lymphocytes % 5.1 L Monocytes % 7.2 Eosinophils % 2.5 Basophils % 0.4 Nucleated Red Blood Cells % 0.0 Immature Granulocytes # 0.160 H Neutrophils # 11.9 H Lymphocytes # 0.7 L Monocytes # 1.0 H Eosinophils # 0.4 Basophils # 0.1 Nucleated Red Blood Cells # 0.0 Sodium Level 137 Potassium Level 4.3 Chloride Level 109 Carbon Dioxide Level 24 Anion Gap 4 L Blood Urea Nitrogen 13 Creatinine 1.08 Est Glomerular Filtrat Rate mL/min > 60 Glucose Level 105 Calcium Level 9.0 Phosphorus Level 2.5 Magnesium Level 1.8 Procalcitonin 3.56 H Medications Medication Current Medications Miscellaneous Information (* Miscellaneous Pharmacy Order) DURAMORPH: 0.2 MG SPI... GIVEN NEURAXIAL XX ; Start 09/13/18 at 16:30 IV Flush (NS 3 ml) 3 ml PER PROTOCOL IV ; Start 09/13/18 at 17:00 Acetaminophen (Tylenol Supp) 650 mg Q6H PRN OR Fever; Start 09/13/18 at 17:00 Ondansetron HCl (Zofran Inj) 4 mg Q4H PRN IV NAUSEA AND/OR VOMITING; Start 09/13/18 at 17:00 Folic Acid (Folic Acid) 1 mg DAILY PO Last administered on 09/16/18at 08:43; Admin Dose 1 MG; Start 09/14/18 at 09:00 Labetalol HCl (Normodyne) 100 mg BID PO Last administered on 09/16/18at 08:44; Admin Dose 100 MG; Start 09/13/18 at 21:00 Multivit/Ca Carb/ B Cmplx/FA/Prenat (Flor-Elisa) 1 tab DAILY PO Last administered on 09/16/18at 08:42; Admin Dose 1 TAB; Start 09/14/18 at 09:00 Nifedipine (Procardia Xl) 30 mg DAILY PO Last administered on 09/16/18at 08:42; Admin Dose 30 MG; Start 09/14/18 at 09:00 Sodium Phosphate (Kphos Neutral) 1,000 mg BID PO Last administered on 09/16/18at 08:45; Admin Dose 1,000 MG; Start 09/13/18 at 21:00 Hydromorphone HCl (Dilaudid) 1 mg Q4H PRN IV SEVERE PAIN LEVEL 7-10; Start 09/13/18 at 17:30 Vancomycin HCl (Vanco Iv Per Pharmacy) VANCOMYCIN PER PHARMACY PER PROTOCOL XX ; Start 09/13/18 at 18:30 Calcitriol (Rocaltrol) 0.5 mcg DAILY PO Last administered on 09/16/18at 08:42; Admin Dose 0.5 MCG; Start 09/14/18 at 09:00 Tacrolimus (Prograf) 1 mg BID PO Last administered on 09/16/18at 08:42; Admin Dose 1 MG; Start 09/13/18 at 22:00 Leflunomide (Arava) 20 mg DAILY PO Last administered on 09/16/18at 08:43; Admin Dose 20 MG; Start 09/14/18 at 09:00 Vancomycin/Sodium Chloride 250 ml @ 125 mls/hr Q24H IVPB Last administered on 09/15/18at 14:22; Admin Dose 125 MLS/HR; Start 09/14/18 at 15:00 Aztreonam 2 gm/ Sodium Chloride 100 ml @ 100 mls/hr Q12 IVPB Last administered on 09/16/18at 09:43; Admin Dose 100 MLS/HR; Start 09/13/18 at 22:00 Miscellaneous Information (*Rx Drug Level Order Reminder*) 1400 ONCE XX ; Start 09/16/18 at 14:00; Stop 09/16/18 at 14:01 ERIN MONTOYA MD Sep 16, 2018 12:14
--- NOTE | 2018-09-16 14:42 | CONS ---
Assessment/Plan Assessment/Plan Hospital Course (Demo Recall) - sepsis due to possible HAIs such as pneumonia vs. SIRS from BKA, improved - elevated procalcitonin - downward trending - h/o draining wound, necrosis and infection of L TMA site. ESR 121 on . 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 All the infected tissue was removed by L BKA according to Dr. Cortes progress note - h/o gangrene and infection of L foot - hypertension - h/o renal transplant at [facility], maintained on tacrolimus - adverse reaction to cefazolin (hives), meropenem (pruritus) recommendations - ordered: repeat procalcitonin in AM - continue IV vancomycin, and aztreonam (09/13/2018-) empirically until cultures remain negative for 72 hours, then plan to DC Management d/w patient, XAVIER Gonzalez, and with Dr. Bailey Consultation Date/Type/Reason Admit Date/Time September 13, 2018 at 11:48 Initial Consult Date 09/13/18 Type of Consult Infectious Disease Requesting Provider: DOMINIQUE BURGESS NP Date/Time of Note DATE: 09/16/18 TIME: 14:42 24 HR Interval Summary Free Text/Dictation Pt denies fever, chills, SOB, pain, n/v/d, dysuria. Exam/Review of Systems Exam Vitals Vital Signs Date Temp Pulse Resp B/P (MAP) Pulse Ox O2 O2 Flow FiO2 Time Delivery Rate 09/16/18 82 12:00 09/16/18 98.6 18 139/84 97 11:53 (102) 09/15/18 Room Air 00:30 09/13/18 4.0 20:00 Intake and Output 09/15/18 09/15/18 09/16/18 1515:00 23:00 07:00 IntakeIntake Total 100 ml 400 ml OutputOutput Total 1200 ml 300 ml 1100 ml BalanceBalance -1100 ml 100 ml -1100 ml Constitutional: alert, well developed Psych: no complaints, nl mood/affect Head: normocephalic, atraumatic Eyes: nl conjunctiva, nl lids, nl sclera ENMT: nl external ears & nose, nl nasal mucosa & septum, mucosa pink and moist Neck: supple Respiratory: clear to auscultation, normal air movement Cardiovascular: regular rate and rhythm, nl pulses Gastrointestinal: soft, non-tender; No distended Genitourinary - Male: other (No Don) Musculoskeletal: other (L BKA wrapped with KATHIE bandage and in a brace) 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: nl mental status, nl speech, other (answers simple questions appropriately; follows commands) Skin: nl turgor Results Result Diagram: 09/16/18 0505 09/16/18 0505 Results 24hrs Laboratory Tests Test 09/16/18 05:05 White Blood Count 14.2 H Red Blood Count 3.42 L Hemoglobin 9.2 L Hematocrit 29.2 L Mean Corpuscular Volume 85.4 Mean Corpuscular Hemoglobin 26.9 L Mean Corpuscular Hemoglobin Concent 31.5 L Red Cell Distribution Width 15.3 H Platelet Count 273 Mean Platelet Volume 10.1 Immature Granulocytes % 1.100 H Neutrophils % 83.7 H Lymphocytes % 5.1 L Monocytes % 7.2 Eosinophils % 2.5 Basophils % 0.4 Nucleated Red Blood Cells % 0.0 Immature Granulocytes # 0.160 H Neutrophils # 11.9 H Lymphocytes # 0.7 L Monocytes # 1.0 H Eosinophils # 0.4 Basophils # 0.1 Nucleated Red Blood Cells # 0.0 Sodium Level 137 Potassium Level 4.3 Chloride Level 109 Carbon Dioxide Level 24 Anion Gap 4 L Blood Urea Nitrogen 13 Creatinine 1.08 Est Glomerular Filtrat Rate mL/min > 60 Glucose Level 105 Calcium Level 9.0 Phosphorus Level 2.5 Magnesium Level 1.8 Procalcitonin 3.56 H Medications Medication Current Medications Miscellaneous Information (* Miscellaneous Pharmacy Order) DURAMORPH: 0.2 MG SPI... GIVEN NEURAXIAL XX ; Start 09/13/18 at 16:30 IV Flush (NS 3 ml) 3 ml PER PROTOCOL IV ; Start 09/13/18 at 17:00 Acetaminophen (Tylenol Supp) 650 mg Q6H PRN [place] Fever; Start 09/13/18 at 17:00 Ondansetron HCl (Zofran Inj) 4 mg Q4H PRN IV NAUSEA AND/OR VOMITING; Start 09/13/18 at 17:00 Folic Acid (Folic Acid) 1 mg DAILY PO Last administered on 09/16/18at 08:43; Admin Dose 1 MG; Start 09/14/18 at 09:00 Labetalol HCl (Normodyne) 100 mg BID PO Last administered on 09/16/18 08:44; Admin Dose 100 MG; Start 09/13/18 at 21:00 Multivit/Ca Carb/ B Cmplx/FA/Prenat (Flor-Elisa) 1 tab DAILY PO Last administered on 09/16/18 08:42; Admin Dose 1 TAB; Start 09/14/18 at 09:00 Nifedipine (Procardia Xl) 30 mg DAILY PO Last administered on 09/16/18 08:42; Admin Dose 30 MG; Start 09/14/18 at 09:00 Sodium Phosphate (Kphos Neutral) 1,000 mg BID PO Last administered on 09/16/18 08:45; Admin Dose 1,000 MG; Start 09/13/18 at 21:00 Hydromorphone HCl (Dilaudid) 1 mg Q4H PRN IV SEVERE PAIN LEVEL 7-10; Start 09/13/18 at 17:30 Vancomycin HCl (Vanco Iv Per Pharmacy) VANCOMYCIN PER PHARMACY PER PROTOCOL XX ; Start 09/13/18 at 18:30 Calcitriol (Rocaltrol) 0.5 mcg DAILY PO Last administered on 09/16/18 08:42; Admin Dose 0.5 MCG; Start 09/14/18 at 09:00 Tacrolimus (Prograf) 1 mg BID PO Last administered on 09/16/18 08:42; Admin Dose 1 MG; Start 09/13/18 at 22:00 Leflunomide (Arava) 20 mg DAILY PO Last administered on 09/16/18 08:43; Admin Dose 20 MG; Start 09/14/18 at 09:00 Vancomycin/Sodium Chloride 250 ml @ 125 mls/hr Q24H IVPB Last administered on 09/15/18 14:22; Admin Dose 125 MLS/HR; Start 09/14/18 at 15:00 Aztreonam 2 gm/ Sodium Chloride 100 ml @ 100 mls/hr Q12 IVPB Last administered on 09/16/18 09:43; Admin Dose 100 MLS/HR; Start 09/13/18 at 22:00 ROSALBA MARTI NP Sep 16, 2018 14:42
--- NOTE | 2018-09-16 14:53 | PN ---
Date/Time of Note Date/Time of Note DATE: 09/16/18 TIME: 14:51 Assessment/Plan VTE Prophylaxis Risk score (from [facility] [place])>0 risk: 6 SCD applied (from [facility] [place]): Yes Pharmacological prophylaxis: NA/contraindicated Pharm contraindication: surgical contra Lines/Catheters IV Catheter Type (from [facility]): Saline Lock Urinary Cath still in place: No Assessment/Plan Hospital Course 58-year-old male with comorbidities include hypertension, end-stage renal disease status post renal transplant, peripheral vascular disease, and right foot wound status post a TMA in the recent past with a stump infection that was non-salvageable who underwent an urgent left below-knee amputation on 09/13/2018. 1. Severe left peripheral artery disease with infected left TMA stump. -Status post urgent left below-knee amputation on 09/13/2018. -Antibiotics as per ID. 2. Hypotension status post surgical procedure. -Etiology could be secondary to the multiple antihypertensives that he received in the operating room. -Resolved. 3. Sepsis with leukocytosis, febrile illness, and lactic acidosis secondary to left from infection -Likely from residual infection -Pancultures have been sent, cultures currently negative -Antibiotics as per infectious diseases. 4. Hypertension (history). -Continue antihypertensives. 5. Dyslipidemia. -Continue statins. 6. Peripheral vascular disease. -Continue statins -Hold antiplatelets because of recent surgery. 7. History of renal transplant. -Continue immunosuppressants. -Nephrology following. 8. Normocytic anemia. -Etiology could be multifactorial. -Continue iron supplements. DVT prophylaxis. -Right lower extremity SCD. DC plan: -Continue antimicrobials as per ID. -Replete electrolytes. -PT evaluation. Result Diagram: 09/16/18 0505 09/16/18 0505 Results 24hrs Laboratory Tests Test 09/16/18 05:05 White Blood Count 14.2 H Red Blood Count 3.42 L Hemoglobin 9.2 L Hematocrit 29.2 L Mean Corpuscular Volume 85.4 Mean Corpuscular Hemoglobin 26.9 L Mean Corpuscular Hemoglobin Concent 31.5 L Red Cell Distribution Width 15.3 H Platelet Count 273 Mean Platelet Volume 10.1 Immature Granulocytes % 1.100 H Neutrophils % 83.7 H Lymphocytes % 5.1 L Monocytes % 7.2 Eosinophils % 2.5 Basophils % 0.4 Nucleated Red Blood Cells % 0.0 Immature Granulocytes # 0.160 H Neutrophils # 11.9 H Lymphocytes # 0.7 L Monocytes # 1.0 H Eosinophils # 0.4 Basophils # 0.1 Nucleated Red Blood Cells # 0.0 Sodium Level 137 Potassium Level 4.3 Chloride Level 109 Carbon Dioxide Level 24 Anion Gap 4 L Blood Urea Nitrogen 13 Creatinine 1.08 Est Glomerular Filtrat Rate mL/min > 60 Glucose Level 105 Calcium Level 9.0 Phosphorus Level 2.5 Magnesium Level 1.8 Procalcitonin 3.56 H Subjective 24 Hr Interval Summary Constitutional: no complaints Exam/Review of Systems Exam Vitals Vital Signs Date Temp Pulse Resp B/P (MAP) Pulse Ox O2 O2 Flow FiO2 Time Delivery Rate 09/16/18 82 12:00 09/16/18 98.6 18 139/84 97 11:53 (102) 09/15/18 Room Air 00:30 09/13/18 4.0 20:00 Intake and Output 09/15/18 09/15/18 09/16/18 1515:00 23:00 07:00 IntakeIntake Total 100 ml 400 ml OutputOutput Total 1200 ml 300 ml 1100 ml BalanceBalance -1100 ml 100 ml -1100 ml Constitutional: alert, oriented Respiratory: clear to auscultation Cardiovascular: regular rate and rhythm Gastrointestinal: soft; No distended Musculoskeletal: No nl extremities to inspection Results Results 24hrs Laboratory Tests Test 09/16/18 05:05 White Blood Count 14.2 H Red Blood Count 3.42 L Hemoglobin 9.2 L Hematocrit 29.2 L Mean Corpuscular Volume 85.4 Mean Corpuscular Hemoglobin 26.9 L Mean Corpuscular Hemoglobin Concent 31.5 L Red Cell Distribution Width 15.3 H Platelet Count 273 Mean Platelet Volume 10.1 Immature Granulocytes % 1.100 H Neutrophils % 83.7 H Lymphocytes % 5.1 L Monocytes % 7.2 Eosinophils % 2.5 Basophils % 0.4 Nucleated Red Blood Cells % 0.0 Immature Granulocytes # 0.160 H Neutrophils # 11.9 H Lymphocytes # 0.7 L Monocytes # 1.0 H Eosinophils # 0.4 Basophils # 0.1 Nucleated Red Blood Cells # 0.0 Sodium Level 137 Potassium Level 4.3 Chloride Level 109 Carbon Dioxide Level 24 Anion Gap 4 L Blood Urea Nitrogen 13 Creatinine 1.08 Est Glomerular Filtrat Rate mL/min > 60 Glucose Level 105 Calcium Level 9.0 Phosphorus Level 2.5 Magnesium Level 1.8 Procalcitonin 3.56 H Medications Medication Current Medications Miscellaneous Information (* Miscellaneous Pharmacy Order) DURAMORPH: 0.2 MG SPI... GIVEN NEURAXIAL XX ; Start 09/13/18 at 16:30 IV Flush (NS 3 ml) 3 ml PER PROTOCOL IV ; Start 09/13/18 at 17:00 Acetaminophen (Tylenol Supp) 650 mg Q6H PRN [place] Fever; Start 09/13/18 at 17:00 Ondansetron HCl (Zofran Inj) 4 mg Q4H PRN IV NAUSEA AND/OR VOMITING; Start 09/13/18 at 17:00 Folic Acid (Folic Acid) 1 mg DAILY PO Last administered on 09/16/18at 08:43; Admin Dose 1 MG; Start 09/14/18 at 09:00 Labetalol HCl (Normodyne) 100 mg BID PO Last administered on 09/16/18at 08:44; Admin Dose 100 MG; Start 09/13/18 at 21:00 Multivit/Ca Carb/ B Cmplx/FA/Prenat (Flor-Elisa) 1 tab DAILY PO Last administered on 09/16/18 08:42; Admin Dose 1 TAB; Start 09/14/18 at 09:00 Nifedipine (Procardia Xl) 30 mg DAILY PO Last administered on 09/16/18at 08:42; Admin Dose 30 MG; Start 09/14/18 at 09:00 Sodium Phosphate (Kphos Neutral) 1,000 mg BID PO Last administered on 09/16/18at 08:45; Admin Dose 1,000 MG; Start 09/13/18 at 21:00 Hydromorphone HCl (Dilaudid) 1 mg Q4H PRN IV SEVERE PAIN LEVEL 7-10; Start 09/13/18 at 17:30 Vancomycin HCl (Vanco Iv Per Pharmacy) VANCOMYCIN PER PHARMACY PER PROTOCOL XX ; Start 09/13/18 at 18:30 Calcitriol (Rocaltrol) 0.5 mcg DAILY PO Last administered on 09/16/18at 08:42; Admin Dose 0.5 MCG; Start 09/14/18 at 09:00 Tacrolimus (Prograf) 1 mg BID PO Last administered on 09/16/18at 08:42; Admin Dose 1 MG; Start 09/13/18 at 22:00 Leflunomide (Arava) 20 mg DAILY PO Last administered on 09/16/18 08:43; Admin Dose 20 MG; Start 09/14/18 at 09:00 Vancomycin/Sodium Chloride 250 ml @ 125 mls/hr Q24H IVPB Last administered on 09/15/18 14:22; Admin Dose 125 MLS/HR; Start 09/14/18 at 15:00 Aztreonam 2 gm/ Sodium Chloride 100 ml @ 100 mls/hr Q12 IVPB Last administered on 09/16/18 09:43; Admin Dose 100 MLS/HR; Start 09/13/18 at 22:00 VANESA AVILES Sep 16, 2018 14:52
[2018-09-16] MEDS: VANCOMYCIN 750 MG (PMX) 250 ML IVPB SCH (15:28)
--- NOTE | 2018-09-16 17:35 | RADRPT ---
Vent Rate: 95 bpm RR Interval: 628 msec DE Interval: 129 msec QRS Duration: 129 msec QT Interval: 382 msec QTC Interval: 482 msec P-R-T [place]: 53 - 49 - 5 degrees Sinus rhythm. Right bundle branch block.. Electronically Signed By: Kelvin Lund
[2018-09-17] VITALS (10 sets, daily range): BP systolic 115–164; BP diastolic 66–84; PULSE 64–115; RESP 17–22
[2018-09-17] MEDS: VANCOMYCIN 750 MG (PMX) 250 ML IVPB SCH ×2 (03:58→14:56)
[2018-09-17] MEDS: FOLIC ACID 1 MG TAB PO SCH (08:17)
[2018-09-17] MEDS: LEFLUNOMIDE 20 MG TAB PO SCH (08:17)
[2018-09-17] MEDS: TACROLIMUS 1 MG CAP PO SCH ×2 (08:17→20:41)
[2018-09-17] MEDS: SOD PHOS MONO/DIBAS 250 MG TAB PO SCH ×2 (08:17→20:42)
[2018-09-17] MEDS: CALCITRIOL 0.25 MCG CAP PO SCH (08:17)
[2018-09-17] MEDS: MULTIVIT/CA CARB/B CMPLX/FA TAB PO SCH (08:17)
[2018-09-17] MEDS: NIFEdipine (XL) 30 MG TAB PO SCH (08:18)
[2018-09-17] MEDS: LABETALOL 100 MG TAB PO SCH ×2 (08:18→20:42)
[2018-09-17] MEDS: AZTREONAM 2 GM in SOD CHLORIDE 0.9% 100 ML IVPB SCH ×2 (08:50→20:39)
[2018-09-17] MEDS ORDERED: MAGNESIUM SULFATE 2 GM/50 ML 50 ML IVPB ONE (10:00)
--- NOTE | 2018-09-17 10:04 | CONS ---
Assessment/Plan Assessment/Plan Hospital Course (Demo Recall) 1. Kidney transplant status. The patient had a cadaveric kidney transplant in 2006. He is on immunosuppressive therapy. His renal function today is back to normal. He had an infected gangrenous left foot and was septic. He is overall doing better. We will continue current medication and management. 2. He is now 4 days postop a left below the knee amputation. His left foot was infected and gangrenous. 3. Hypertension 4. Peripheral artery disease 5. Anemia 6. Hyperlipidemia. 7. Hypomagnesemia, will replace magnesium today. Consultation Date/Type/Reason Admit Date/Time September 13, 2018 at 11:48 Initial Consult Date 09/13/18 Type of Consult Nephrology Requesting Provider: DOMINIQUE BURGESS NP Date/Time of Note DATE: 09/17/18 TIME: 10:02 24 HR Interval Summary Free Text/Dictation This patient is being seen in nephrologic follow-up. He has a kidney transplant. He is awake and alert. There was a listed fever this morning of 10 2.4; however, this is thought to be an hour because on repeat the temperature was 99. The patient denies any cough or dysuria. Constitutional: no complaints, improved Exam/Review of Systems Exam Vitals Vital Signs Date Temp Pulse Resp B/P (MAP) Pulse Ox O2 O2 Flow FiO2 Time Delivery Rate 09/17/18 101 08:22 09/17/18 99.6 08:16 09/17/18 17 164/84 98 07:42 (110) 09/15/18 Room Air 00:30 09/13/18 4.0 20:00 Intake and Output 09/16/18 09/16/18 09/17/18 1515:00 23:00 07:00 IntakeIntake Total 800 ml 700 ml 500 ml OutputOutput Total 300 ml 400 ml 300 ml BalanceBalance 500 ml 300 ml 200 ml Exam Status post left below the knee amputation Constitutional: alert, oriented, frail Respiratory: clear to auscultation Cardiovascular: regular rate and rhythm Gastrointestinal: soft, non-tender Results Result Diagram: 09/17/18 0543 09/17/18 0543 Results 24hrs Laboratory Tests Test 09/16/18 14:26 09/17/18 05:43 Vancomycin Level Trough 5.5 L White Blood Count 14.4 H Red Blood Count 3.76 L Hemoglobin 10.1 L Hematocrit 31.9 L Mean Corpuscular Volume 84.8 Mean Corpuscular Hemoglobin 26.9 L Mean Corpuscular Hemoglobin Concent 31.7 L Red Cell Distribution Width 15.7 H Platelet Count 253 Mean Platelet Volume 10.3 Immature Granulocytes % 1.000 H Neutrophils % 82.0 H Lymphocytes % 5.4 L Monocytes % 8.3 Eosinophils % 2.9 Basophils % 0.4 Nucleated Red Blood Cells % 0.0 Immature Granulocytes # 0.150 H Neutrophils # 11.8 H Lymphocytes # 0.8 Monocytes # 1.2 H Eosinophils # 0.4 Basophils # 0.1 Nucleated Red Blood Cells # 0.0 Sodium Level 136 Potassium Level 4.6 Chloride Level 111 H Carbon Dioxide Level 22 Anion Gap 3 L Blood Urea Nitrogen 13 Creatinine 1.15 Est Glomerular Filtrat Rate mL/min > 60 Glucose Level 105 Calcium Level 9.2 Phosphorus Level 2.2 L Magnesium Level 1.4 L Procalcitonin 2.06 H Medications Medication Current Medications Miscellaneous Information (* Miscellaneous Pharmacy Order) DURAMORPH: 0.2 MG SPI... GIVEN NEURAXIAL XX ; Start 09/13/18 at 16:30 IV Flush (NS 3 ml) 3 ml PER PROTOCOL IV ; Start 09/13/18 at 17:00 Acetaminophen (Tylenol Supp) 650 mg Q6H PRN IN Fever; Start 09/13/18 at 17:00 Ondansetron HCl (Zofran Inj) 4 mg Q4H PRN IV NAUSEA AND/OR VOMITING; Start 09/13/18 at 17:00 Folic Acid (Folic Acid) 1 mg DAILY PO Last administered on 09/17/18at 08:17; Admin Dose 1 MG; Start 09/14/18 at 09:00 Labetalol HCl (Normodyne) 100 mg BID PO Last administered on 09/17/18 08:18; Admin Dose 100 MG; Start 09/13/18 at 21:00 Multivit/Ca Carb/ B Cmplx/FA/Prenat (Flor-Elisa) 1 tab DAILY PO Last administered on 09/17/18 08:17; Admin Dose 1 TAB; Start 09/14/18 at 09:00 Nifedipine (Procardia Xl) 30 mg DAILY PO Last administered on 09/17/18at 08:18; Admin Dose 30 MG; Start 09/14/18 at 09:00 Sodium Phosphate (Kphos Neutral) 1,000 mg BID PO Last administered on 09/17/18at 08:17; Admin Dose 1,000 MG; Start 09/13/18 at 21:00 Hydromorphone HCl (Dilaudid) 1 mg Q4H PRN IV SEVERE PAIN LEVEL 7-10; Start 09/13/18 at 17:30 Vancomycin HCl (Vanco Iv Per Pharmacy) VANCOMYCIN PER PHARMACY PER PROTOCOL XX ; Start 09/13/18 at 18:30 Calcitriol (Rocaltrol) 0.5 mcg DAILY PO Last administered on 09/17/18at 08:17; Admin Dose 0.5 MCG; Start 09/14/18 at 09:00 Tacrolimus (Prograf) 1 mg BID PO Last administered on 09/17/18at 08:17; Admin Dose 1 MG; Start 09/13/18 at 22:00 Leflunomide (Arava) 20 mg DAILY PO Last administered on 09/17/18at 08:17; Admin Dose 20 MG; Start 09/14/18 at 09:00 Aztreonam 2 gm/ Sodium Chloride 100 ml @ 100 mls/hr Q12 IVPB Last administered on 09/17/18at 08:50; Admin Dose 100 MLS/HR; Start 09/13/18 at 22:00 Vancomycin/Sodium Chloride 250 ml @ 125 mls/hr Q12H IVPB Last administered on 09/17/18at 03:58; Admin Dose 125 MLS/HR; Start 09/17/18 at 03:00 Magnesium Sulfate 50 ml @ 25 mls/hr ONCE ONCE IVPB ; Start 09/17/18 at 10:00; Stop 09/17/18 at 11:59 ERIN MONTOYA MD Sep 17, 2018 10:04
--- NOTE | 2018-09-17 14:18 | PN ---
Date/Time of Note Date/Time of Note DATE: 09/17/18 TIME: 14:16 Assessment/Plan VTE Prophylaxis Risk score (from Ns)>0 risk: 5 SCD applied (from [facility] [place] Yes Pharmacological prophylaxis: NA/contraindicated Pharm contraindication: surgical contra Lines/Catheters IV Catheter Type (from [facility]): Saline Lock Urinary Cath still in place: No Assessment/Plan Hospital Course 58-year-old male with comorbidities include hypertension, end-stage renal disease status post renal transplant, peripheral vascular disease, and right foot wound status post a TMA in the recent past with a stump infection that was non-salvageable who underwent an urgent left below-knee amputation on 09/13/2018. 1. Severe left peripheral artery disease with infected left TMA stump. -Status post urgent left below-knee amputation on 09/13/2018. -Antibiotics as per ID. 2. Hypotension status post surgical procedure-resolved -Etiology could be secondary to the multiple antihypertensives that he received in the operating room. 3. Sepsis with leukocytosis, febrile illness, and lactic acidosis secondary to lower extremity infection -Likely from residual infection -Pancultures have been sent, cultures currently negative -Antibiotics as per infectious diseases. 4. Hypertension (history). -Continue antihypertensives 5. Dyslipidemia. -Continue statins. 6. Peripheral vascular disease. -Continue statins -Hold antiplatelets because of recent surgery. 7. History of renal transplant. -Continue immunosuppressants. -Nephrology following. 8. Normocytic anemia. -Etiology could be multifactorial. -Continue iron supplements. DVT prophylaxis. -Right lower extremity SCD. DC plan: -Continue antimicrobials as per ID as patient is still septic -Replete electrolytes. -PT evaluation. Result Diagram: 09/17/18 0543 09/17/18 0543 Results 24hrs Laboratory Tests Test 09/16/18 14:26 09/17/18 05:43 Vancomycin Level Trough 5.5 L White Blood Count 14.4 H Red Blood Count 3.76 L Hemoglobin 10.1 L Hematocrit 31.9 L Mean Corpuscular Volume 84.8 Mean Corpuscular Hemoglobin 26.9 L Mean Corpuscular Hemoglobin Concent 31.7 L Red Cell Distribution Width 15.7 H Platelet Count 253 Mean Platelet Volume 10.3 Immature Granulocytes % 1.000 H Neutrophils % 82.0 H Lymphocytes % 5.4 L Monocytes % 8.3 Eosinophils % 2.9 Basophils % 0.4 Nucleated Red Blood Cells % 0.0 Immature Granulocytes # 0.150 H Neutrophils # 11.8 H Lymphocytes # 0.8 Monocytes # 1.2 H Eosinophils # 0.4 Basophils # 0.1 Nucleated Red Blood Cells # 0.0 Sodium Level 136 Potassium Level 4.6 Chloride Level 111 H Carbon Dioxide Level 22 Anion Gap 3 L Blood Urea Nitrogen 13 Creatinine 1.15 Est Glomerular Filtrat Rate mL/min > 60 Glucose Level 105 Calcium Level 9.2 Phosphorus Level 2.2 L Magnesium Level 1.4 L Procalcitonin 2.06 H Subjective 24 Hr Interval Summary Constitutional: no complaints Exam/Review of Systems Exam Vitals Vital Signs Date Temp Pulse Resp B/P (MAP) Pulse Ox O2 O2 Flow FiO2 Time Delivery Rate 09/17/18 114 12:24 09/17/18 99.8 18 125/66 98 11:58 (85) 09/15/18 Room Air 00:30 09/13/18 4.0 20:00 Intake and Output 09/16/18 09/16/18 09/17/18 1515:00 23:00 07:00 IntakeIntake Total 800 ml 700 ml 500 ml OutputOutput Total 300 ml 400 ml 300 ml BalanceBalance 500 ml 300 ml 200 ml Constitutional: alert, oriented Respiratory: clear to auscultation Cardiovascular: regular rate and rhythm Gastrointestinal: soft; No distended Musculoskeletal: No nl extremities to inspection Results Results 24hrs Laboratory Tests Test 09/16/18 14:26 09/17/18 05:43 Vancomycin Level Trough 5.5 L White Blood Count 14.4 H Red Blood Count 3.76 L Hemoglobin 10.1 L Hematocrit 31.9 L Mean Corpuscular Volume 84.8 Mean Corpuscular Hemoglobin 26.9 L Mean Corpuscular Hemoglobin Concent 31.7 L Red Cell Distribution Width 15.7 H Platelet Count 253 Mean Platelet Volume 10.3 Immature Granulocytes % 1.000 H Neutrophils % 82.0 H Lymphocytes % 5.4 L Monocytes % 8.3 Eosinophils % 2.9 Basophils % 0.4 Nucleated Red Blood Cells % 0.0 Immature Granulocytes # 0.150 H Neutrophils # 11.8 H Lymphocytes # 0.8 Monocytes # 1.2 H Eosinophils # 0.4 Basophils # 0.1 Nucleated Red Blood Cells # 0.0 Sodium Level 136 Potassium Level 4.6 Chloride Level 111 H Carbon Dioxide Level 22 Anion Gap 3 L Blood Urea Nitrogen 13 Creatinine 1.15 Est Glomerular Filtrat Rate mL/min > 60 Glucose Level 105 Calcium Level 9.2 Phosphorus Level 2.2 L Magnesium Level 1.4 L Procalcitonin 2.06 H Medications Medication Current Medications Miscellaneous Information (* Miscellaneous Pharmacy Order) DURAMORPH: 0.2 MG SPI... GIVEN NEURAXIAL XX ; Start 09/13/18 at 16:30 IV Flush (NS 3 ml) 3 ml PER PROTOCOL IV ; Start 09/13/18 at 17:00 Acetaminophen (Tylenol Supp) 650 mg Q6H PRN IN Fever; Start 09/13/18 at 17:00 Ondansetron HCl (Zofran Inj) 4 mg Q4H PRN IV NAUSEA AND/OR VOMITING; Start 09/13/18 at 17:00 Folic Acid (Folic Acid) 1 mg DAILY PO Last administered on 09/17/18at 08:17; Admin Dose 1 MG; Start 09/14/18 at 09:00 Labetalol HCl (Normodyne) 100 mg BID PO Last administered on 09/17/18at 08:18; Admin Dose 100 MG; Start 09/13/18 at 21:00 Multivit/Ca Carb/ B Cmplx/FA/Prenat (Flor-Elisa) 1 tab DAILY PO Last administered on 09/17/18at 08:17; Admin Dose 1 TAB; Start 09/14/18 at 09:00 Nifedipine (Procardia Xl) 30 mg DAILY PO Last administered on 09/17/18at 08:18; Admin Dose 30 MG; Start 09/14/18 at 09:00 Sodium Phosphate (Kphos Neutral) 1,000 mg BID PO Last administered on 09/17/18at 08:17; Admin Dose 1,000 MG; Start 09/13/18 at 21:00 Hydromorphone HCl (Dilaudid) 1 mg Q4H PRN IV SEVERE PAIN LEVEL 7-10; Start 09/13/18 at 17:30 Vancomycin HCl (Vanco Iv Per Pharmacy) VANCOMYCIN PER PHARMACY PER PROTOCOL XX ; Start 09/13/18 at 18:30 Calcitriol (Rocaltrol) 0.5 mcg DAILY PO Last administered on 09/17/18at 08:17; Admin Dose 0.5 MCG; Start 09/14/18 at 09:00 Tacrolimus (Prograf) 1 mg BID PO Last administered on 09/17/18at 08:17; Admin Dose 1 MG; Start 09/13/18 at 22:00 Leflunomide (Arava) 20 mg DAILY PO Last administered on 09/17/18at 08:17; Admin Dose 20 MG; Start 09/14/18 at 09:00 Aztreonam 2 gm/ Sodium Chloride 100 ml @ 100 mls/hr Q12 IVPB Last administered on 09/17/18at 08:50; Admin Dose 100 MLS/HR; Start 09/13/18 at 22:00 Vancomycin/Sodium Chloride 250 ml @ 125 mls/hr Q12H IVPB Last administered on 09/17/18at 03:58; Admin Dose 125 MLS/HR; Start 09/17/18 at 03:00 Miscellaneous Information (*Rx Drug Level Order Reminder*) VANCO TROUGH 09/18 @ 1,400 1400 ONCE XX ; Start 09/18/18 at 14:00; Stop 09/18/18 at 14:01 VANESA AVILES Sep 17, 2018 14:18
--- NOTE | 2018-09-17 16:19 | CONS ---
Assessment/Plan Assessment/Plan Hospital Course (Demo Recall) - sepsis due to possible HAIs such as pneumonia vs. SIRS from BKA, improved - elevated procalcitonin - downward trending - h/o draining wound, necrosis and infection of L TMA site. ESR 121 on . 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 All the infected tissue was removed by L BKA according to Dr. Cortes progress note - h/o gangrene and infection of L foot - hypertension - h/o renal transplant at [facility], maintained on tacrolimus - adverse reaction to cefazolin (hives), meropenem (pruritus) recommendations - mccord cx - continue abx - requested wound picts with next bandage change - low threshold to add antifungal if spikes again - consider additional imaging if spikes again Consultation Date/Type/Reason Admit Date/Time September 13, 2018 at 11:48 Initial Consult Date 09/13/18 Requesting Provider: DOMINIQUE BURGESS NP Date/Time of Note DATE: 09/17/18 TIME: 16:19 24 HR Interval Summary Free Text/Dictation spiked fever again this am Exam/Review of Systems Exam Vitals Vital Signs Date Temp Pulse Resp B/P (MAP) Pulse Ox O2 O2 Flow FiO2 Time Delivery Rate 09/17/18 98.2 111 18 150/80 94 15:39 (103) 09/15/18 Room Air 00:30 09/13/18 4.0 20:00 Intake and Output 09/16/18 09/16/18 09/17/18 1515:00 23:00 07:00 IntakeIntake Total 800 ml 700 ml 500 ml OutputOutput Total 300 ml 400 ml 300 ml BalanceBalance 500 ml 300 ml 200 ml Constitutional: alert, oriented, well developed Psych: no complaints, nl mood/affect Eyes: EOMI Neck: supple Respiratory: clear to auscultation Cardiovascular: regular rate and rhythm Gastrointestinal: soft 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: TAX ANALYST II-XII intact Results Result Diagram: 09/17/18 0543 09/17/18 0543 Results 24hrs Laboratory Tests Test 09/17/18 05:43 White Blood Count 14.4 H Red Blood Count 3.76 L Hemoglobin 10.1 L Hematocrit 31.9 L Mean Corpuscular Volume 84.8 Mean Corpuscular Hemoglobin 26.9 L Mean Corpuscular Hemoglobin Concent 31.7 L Red Cell Distribution Width 15.7 H Platelet Count 253 Mean Platelet Volume 10.3 Immature Granulocytes % 1.000 H Neutrophils % 82.0 H Lymphocytes % 5.4 L Monocytes % 8.3 Eosinophils % 2.9 Basophils % 0.4 Nucleated Red Blood Cells % 0.0 Immature Granulocytes # 0.150 H Neutrophils # 11.8 H Lymphocytes # 0.8 Monocytes # 1.2 H Eosinophils # 0.4 Basophils # 0.1 Nucleated Red Blood Cells # 0.0 Sodium Level 136 Potassium Level 4.6 Chloride Level 111 H Carbon Dioxide Level 22 Anion Gap 3 L Blood Urea Nitrogen 13 Creatinine 1.15 Est Glomerular Filtrat Rate mL/min > 60 Glucose Level 105 Calcium Level 9.2 Phosphorus Level 2.2 L Magnesium Level 1.4 L Procalcitonin 2.06 H Medications Medication Current Medications Miscellaneous Information (* Miscellaneous Pharmacy Order) DURAMORPH: 0.2 MG SPI... GIVEN NEURAXIAL XX ; Start 09/13/18 at 16:30 IV Flush (NS 3 ml) 3 ml PER PROTOCOL IV ; Start 09/13/18 at 17:00 Acetaminophen (Tylenol Supp) 650 mg Q6H PRN [place] Fever; Start 09/13/18 at 17:00 Ondansetron HCl (Zofran Inj) 4 mg Q4H PRN IV NAUSEA AND/OR VOMITING; Start 09/13/18 at 17:00 Folic Acid (Folic Acid) 1 mg DAILY PO Last administered on 09/17/18 08:17; Admin Dose 1 MG; Start 09/14/18 at 09:00 Labetalol HCl (Normodyne) 100 mg BID PO Last administered on 09/17/18 08:18; Admin Dose 100 MG; Start 09/13/18 at 21:00 Multivit/Ca Carb/ B Cmplx/FA/Prenat (Flor-Elisa) 1 tab DAILY PO Last administered on 09/17/18 08:17; Admin Dose 1 TAB; Start 09/14/18 at 09:00 Nifedipine (Procardia Xl) 30 mg DAILY PO Last administered on 09/17/18 08:18; Admin Dose 30 MG; Start 09/14/18 at 09:00 Sodium Phosphate (Kphos Neutral) 1,000 mg BID PO Last administered on 09/17/18 08:17; Admin Dose 1,000 MG; Start 09/13/18 at 21:00 Hydromorphone HCl (Dilaudid) 1 mg Q4H PRN IV SEVERE PAIN LEVEL 7-10; Start 09/13/18 at 17:30 Vancomycin HCl (Vanco Iv Per Pharmacy) VANCOMYCIN PER PHARMACY PER PROTOCOL XX ; Start 09/13/18 at 18:30 Calcitriol (Rocaltrol) 0.5 mcg DAILY PO Last administered on 09/17/18at 08:17; Admin Dose 0.5 MCG; Start 09/14/18 at 09:00 Tacrolimus (Prograf) 1 mg BID PO Last administered on 09/17/18at 08:17; Admin Dose 1 MG; Start 09/13/18 at 22:00 Leflunomide (Arava) 20 mg DAILY PO Last administered on 09/17/18at 08:17; Admin Dose 20 MG; Start 09/14/18 at 09:00 Aztreonam 2 gm/ Sodium Chloride 100 ml @ 100 mls/hr Q12 IVPB Last administered on 09/17/18at 08:50; Admin Dose 100 MLS/HR; Start 09/13/18 at 22:00 Vancomycin/Sodium Chloride 250 ml @ 125 mls/hr Q12H IVPB Last administered on 09/17/18at 14:56; Admin Dose 125 MLS/HR; Start 09/17/18 at 03:00 Miscellaneous Information (*Rx Drug Level Order Reminder*) VANCO TROUGH 09/18 @ 1,400 1400 ONCE XX ; Start 09/18/18 at 14:00; Stop 09/18/18 at 14:01 JACKIE ARIAS MD Sep 17, 2018 16:19
[2018-09-17] MEDS ORDERED: ACETAMINOPHEN 325 MG TAB PO PRN (17:00)
[2018-09-17] MEDS ORDERED: VANCOMYCIN IV PER PHARMACY XX SCH (17:00)
[2018-09-17] MEDS: LEVOFLOXACIN 500MG/D5W (PMX) 100 ML IVPB SCH (17:30)
[2018-09-17] MEDS ORDERED: AZTREONAM 1 GM/NS (PMX) 50 ML IVPB SCH (21:00)
[2018-09-17] MEDS: metroNIDAZOLE 500 MG/NS (PMX) 100 ML IVPB SCH (22:08)
[2018-09-18] VITALS (11 sets, daily range): BP systolic 91–140; BP diastolic 58–88; PULSE 87–168; RESP 17–22
[2018-09-18] MEDS: VANCOMYCIN 750 MG (PMX) 250 ML IVPB SCH ×2 (03:03→15:40)
[2018-09-18] MEDS: metroNIDAZOLE 500 MG/NS (PMX) 100 ML IVPB SCH ×3 (06:53→22:02)
[2018-09-18] MEDS: AZTREONAM 2 GM in SOD CHLORIDE 0.9% 100 ML IVPB SCH ×2 (09:04→20:47)
[2018-09-18] MEDS: SOD PHOS MONO/DIBAS 250 MG TAB PO SCH ×2 (09:05→20:48)
[2018-09-18] MEDS: NIFEdipine (XL) 30 MG TAB PO SCH (09:06)
[2018-09-18] MEDS: FOLIC ACID 1 MG TAB PO SCH (09:06)
[2018-09-18] MEDS: LABETALOL 100 MG TAB PO SCH ×2 (09:06→20:48)
[2018-09-18] MEDS: CALCITRIOL 0.25 MCG CAP PO SCH (09:06)
[2018-09-18] MEDS: TACROLIMUS 1 MG CAP PO SCH ×2 (09:06→20:48)
[2018-09-18] MEDS: LEFLUNOMIDE 20 MG TAB PO SCH (09:06)
[2018-09-18] MEDS: MULTIVIT/CA CARB/B CMPLX/FA TAB PO SCH (09:07)
--- NOTE | 2018-09-18 11:34 | CONS ---
Assessment/Plan Assessment/Plan Hospital Course (Demo Recall) - sepsis due to possible HAIs such as pneumonia vs. SIRS from BKA, improved - elevated procalcitonin - downward trending - h/o draining wound, necrosis and infection of L TMA site. ESR 121 on . 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 All the infected tissue was removed by L BKA according to Dr. Cortes progress note - h/o gangrene and infection of L foot - hypertension - h/o renal transplant at [facility], maintained on tacrolimus - adverse reaction to cefazolin (hives), meropenem (pruritus) recommendations - Continue Aztreonam, Levaquin, Metronidazole, Vanco for now - F/u urine cx (UA was neg), blood cultures 09/18/18 (pending in process), blood cultures 09/13/18 (NGTD) - Requested wound pics with next bandage change - d/w XAVIER Weinberg (original surgical drssing still in place) - Low threshold to add antifungal if spikes again - Consider additional imaging if spikes again Plan was d/w patient, his XAVIER Weinberg, and with Dr. Bailey via [employer] messaging. Consultation Date/Type/Reason Admit Date/Time September 13, 2018 at 11:48 Initial Consult Date 09/13/18 Type of Consult ID Requesting Provider: DOMINIQUE BURGESS NP Date/Time of Note DATE: 09/18/18 TIME: 11:31 24 HR Interval Summary Free Text/Dictation WBC noted 16.9 today. Afebrile. Low grades last night 100.3 Procalc improved 1.64 Blood 09/13 ngtd. Pending cultures from yesterday. No other acute issues were reported per discussion with XAVIER Weinberg. Patient denies feeling of fevers, chills, sweats, today, denies sob, cp, cough, n/v/d, dysuria. Denies current pain. States "Do I have a wound on my left leg?" Exam/Review of Systems Exam Vitals Vital Signs Date Temp Pulse Resp B/P (MAP) Pulse Ox O2 O2 Flow FiO2 Time Delivery Rate 09/18/18 97.8 107 22 140/77 96 Room Air 08:47 (98) Allergies Coded Allergies cefazolin (Verified Allergy, Intermediate, HIVES, 09/14/18) meropenem (Verified Allergy, Intermediate, 09/14/18) pruritus (observed on 09/13/2018) Intake and Output 09/17/18 09/17/18 09/18/18 1515:00 23:00 07:00 IntakeIntake Total 850 ml 400 ml OutputOutput Total 500 ml 600 ml BalanceBalance 350 ml -200 ml Constitutional: alert, well developed Psych: no complaints, nl mood/affect Head: normocephalic, atraumatic Eyes: nl conjunctiva, nl lids, nl sclera ENMT: nl external ears & nose, nl nasal mucosa & septum, mucosa pink and moist (no thrush noted ) Neck: supple, non-tender Respiratory: clear to auscultation, normal air movement Cardiovascular: regular rate and rhythm, nl pulses Gastrointestinal: soft, non-tender, bowel sounds (normoactive ) Genitourinary - Male: other (No f/c) Musculoskeletal: other (L BKA site is wrapped with a c/d/i real bandage and Brace is on. ) Extremities: normal pulses; No edema 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: nl mental status, nl speech Skin: nl turgor; No rash or lesions Results Result Diagram: 09/18/18 0547 09/18/18 0547 Results 24hrs Laboratory Tests Test 09/18/18 05:00 09/18/18 05:47 Urine Color YELLOW Urine Clarity CLEAR Urine pH 6.0 Urine Specific [place] 1.013 Urine Ketones NEGATIVE Urine Nitrite NEGATIVE Urine Bilirubin NEGATIVE Urine Urobilinogen NEGATIVE Urine Leukocyte Esterase NEGATIVE Urine Microscopic RBC 0 Urine Microscopic WBC 1 Urine Hemoglobin 1+ H Urine Glucose NEGATIVE Urine Total Protein NEGATIVE White Blood Count 16.9 H Red Blood Count 3.20 L Hemoglobin 8.7 L Hematocrit 27.0 L Mean Corpuscular Volume 84.4 Mean Corpuscular Hemoglobin 27.2 L Mean Corpuscular Hemoglobin Concent 32.2 Red Cell Distribution Width 15.5 H Platelet Count 244 Mean Platelet Volume 10.0 Immature Granulocytes % 0.900 H Neutrophils % 85.2 H Lymphocytes % 4.1 L Monocytes % 7.4 Eosinophils % 2.1 Basophils % 0.3 Nucleated Red Blood Cells % 0.0 Immature Granulocytes # 0.150 H Neutrophils # 14.4 H Lymphocytes # 0.7 L Monocytes # 1.3 H Eosinophils # 0.4 Basophils # 0.1 Nucleated Red Blood Cells # 0.0 Sodium Level 135 Potassium Level 4.1 Chloride Level 110 Carbon Dioxide Level 20 L Anion Gap 5 Blood Urea Nitrogen 15 Creatinine 1.08 Est Glomerular Filtrat Rate mL/min > 60 Glucose Level 109 Lactic Acid Level 0.8 Calcium Level 8.8 Magnesium Level 1.6 L Total Bilirubin 0.6 Direct Bilirubin 0.00 Indirect Bilirubin 0.6 Aspartate Amino Transf (AST/SGOT) 88 H Alanine Aminotransferase (ALT/SGPT) 84 H Alkaline Phosphatase 226 H Total Protein 5.7 L Albumin 2.5 L Globulin 3.20 Albumin/Globulin Ratio 0.78 Procalcitonin 1.64 H Imaging Imaging CXR 09/18/18 IMPRESSION: No significant interval change.. Cardiomegaly and atherosclerotic aorta. Possible small hiatal hernia. Medications Medication Current Medications Miscellaneous Information (* Miscellaneous Pharmacy Order) DURAMORPH: 0.2 MG SPI... GIVEN NEURAXIAL XX ; Start 09/13/18 at 16:30 IV Flush (NS 3 ml) 3 ml PER PROTOCOL IV ; Start 09/13/18 at 17:00 Acetaminophen (Tylenol Supp) 650 mg Q6H PRN [place] Fever; Start 09/13/18 at 17:00 Ondansetron HCl (Zofran Inj) 4 mg Q4H PRN IV NAUSEA AND/OR VOMITING; Start 09/13/18 at 17:00 Folic Acid (Folic Acid) 1 mg DAILY PO Last administered on 09/18/18at 09:06; Admin Dose 1 MG; Start 09/14/18 at 09:00 Labetalol HCl (Normodyne) 100 mg BID PO Last administered on 09/18/18at 09:06; Admin Dose 100 MG; Start 09/13/18 at 21:00 Multivit/Ca Carb/ B Cmplx/FA/Prenat (Flor-Elisa) 1 tab DAILY PO Last administered on 09/18/18at 09:07; Admin Dose 1 TAB; Start 09/14/18 at 09:00 Nifedipine (Procardia Xl) 30 mg DAILY PO Last administered on 09/18/18at 09:06; Admin Dose 30 MG; Start 09/14/18 at 09:00 Sodium Phosphate (Kphos Neutral) 1,000 mg BID PO Last administered on 09/18/18at 09:05; Admin Dose 1,000 MG; Start 09/13/18 at 21:00 Hydromorphone HCl (Dilaudid) 1 mg Q4H PRN IV SEVERE PAIN LEVEL 7-10; Start 09/13/18 at 17:30 Calcitriol (Rocaltrol) 0.5 mcg DAILY PO Last administered on 09/18/18 09:06; Admin Dose 0.5 MCG; Start 09/14/18 at 09:00 Tacrolimus (Prograf) 1 mg BID PO Last administered on 09/18/18 09:06; Admin Dose 1 MG; Start 09/13/18 at 22:00 Leflunomide (Arava) 20 mg DAILY PO Last administered on 09/18/18 09:06; Admin Dose 20 MG; Start 09/14/18 at 09:00 Vancomycin/Sodium Chloride 250 ml @ 125 mls/hr Q12H IVPB Last administered on 09/18/18 03:03; Admin Dose 125 MLS/HR; Start 09/17/18 at 03:00 Acetaminophen (Tylenol Tab) 650 mg Q6H PRN PO MILD PAIN(1-3)OR ELEVATED TEMP Last administered on 09/17/18at 20:44; Admin Dose 650 MG; Start 09/17/18 at 17:00 Vancomycin HCl (Vanco Iv Per Pharmacy) VANCOMYCIN PER PHARMACY PER PROTOCOL XX ; Start 09/17/18 at 17:00 Levofloxacin/ Dextrose 100 ml @ 100 mls/hr Q24H IVPB Last administered on 09/17/18at 17:30; Admin Dose 100 MLS/HR; Start 09/17/18 at 17:30 Metronidazole 100 ml @ 100 mls/hr Q8 IVPB Last administered on 09/18/18at 06:53; Admin Dose 100 MLS/HR; Start 09/17/18 at 22:00 Miscellaneous Information (*Rx Drug Level Order Reminder*) 1400 ONCE XX ; Start 09/18/18 at 14:00; Stop 09/18/18 at 14:01 Aztreonam 2 gm/ Sodium Chloride 100 ml @ 100 mls/hr Q12 IVPB Last administered on 09/18/18at 09:04; Admin Dose 100 MLS/HR; Start 09/17/18 at 21:00 WM JOSUE NP Sep 18, 2018 11:34
--- NOTE | 2018-09-18 13:40 | PN ---
Date/Time of Note Date/Time of Note DATE: 09/18/18 TIME: 13:36 Assessment/Plan Lines/Catheters IV Catheter Type (from Nrs): Saline Lock Don in Place (from Nrs): No Assessment/Plan Assessment/Plan s/p L BKA last Sunday - fever and WBC increasing - stump is infected, wound cultured and I drained some blood tinged pus at the bedside Will return to OR tomorrow to washout the stump and place a VAC - I will plan to close it once the infection has resolved Subjective 24 Hr Interval Summary No c/o. He had a fever yesterday and WBC has been increasing. Eating OK and working with PT. Exam/Review of Systems Vital Signs Vitals Vital Signs Date Temp Pulse Resp B/P (MAP) Pulse Ox O2 O2 Flow FiO2 Time Delivery Rate 09/18/18 97.8 107 22 118/80 96 Room Air 12:19 (93) Intake and Output 09/17/18 09/17/18 09/18/18 1515:00 23:00 07:00 IntakeIntake Total 850 ml 400 ml OutputOutput Total 500 ml 600 ml BalanceBalance 350 ml -200 ml Exam Free Text/Dictation L BKA stump undressed - edema has resolved but there is purulent / bloody drainage from the incision - I removed multiple eros and drained it and cultured the wound. There is some blistering of the lateral flap. Results Result Diagram: 09/18/18 0547 09/18/18 0547 AMARILIS RIBERA MD Sep 18, 2018 13:40
[2018-09-18] MEDS ORDERED: MAGNESIUM SULFATE 2 GM/50 ML 50 ML IVPB ONE (14:30)
--- NOTE | 2018-09-18 14:33 | CONS ---
Assessment/Plan Assessment/Plan Hospital Course (Demo Recall) 1. Kidney transplant status. The patient had a cadaveric kidney transplant in 2006. He is on immunosuppressive therapy. His renal function today is back to normal. He had an infected gangrenous left foot and was septic. He is overall doing better. We will continue current medication and management. 2. He is now 5 days postop a left below the knee amputation. His left foot was infected and gangrenous. He now has a L stump that is draining dark bloody purulent material . 3. Hypertension 4. Peripheral artery disease 5. Anemia 6. Hyperlipidemia. 7. Hypomagnesemia, will replace magnesium today.I suspect he is loosing magnesium through kidney . Consultation Date/Type/Reason Admit Date/Time September 13, 2018 at 11:48 Initial Consult Date 09/13/18 Type of Consult Nephrology Requesting Provider: DOMINIQUE BURGESS NP Date/Time of Note DATE: 09/18/18 TIME: 14:24 24 HR Interval Summary Free Text/Dictation He is being seen in nephrologic follow up because of Kidney transplant status . Alphonso is awake and alert . He has no complaints . His L leg stump was examined by Dr Cortes today and found to have some purulent dark drainage . Constitutional: no complaints Exam/Review of Systems Exam Vitals Vital Signs Date Temp Pulse Resp B/P (MAP) Pulse Ox O2 O2 Flow FiO2 Time Delivery Rate 09/18/18 97.8 107 22 118/80 96 Room Air 12:19 (93) Intake and Output 09/17/18 09/17/18 09/18/18 1515:00 23:00 07:00 IntakeIntake Total 850 ml 400 ml OutputOutput Total 500 ml 600 ml BalanceBalance 350 ml -200 ml Exam L leg S/P BKA 5 days ago . Constitutional: alert, oriented, frail Respiratory: clear to auscultation, normal air movement Cardiovascular: regular rate and rhythm Gastrointestinal: soft, non-tender Results Result Diagram: 09/18/18 0547 09/18/18 0547 Results 24hrs Laboratory Tests Test 09/18/18 05:00 09/18/18 05:47 Urine Color YELLOW Urine Clarity CLEAR Urine pH 6.0 Urine Specific [place] 1.013 Urine Ketones NEGATIVE Urine Nitrite NEGATIVE Urine Bilirubin NEGATIVE Urine Urobilinogen NEGATIVE Urine Leukocyte Esterase NEGATIVE Urine Microscopic RBC 0 Urine Microscopic WBC 1 Urine Hemoglobin 1+ H Urine Glucose NEGATIVE Urine Total Protein NEGATIVE White Blood Count 16.9 H Red Blood Count 3.20 L Hemoglobin 8.7 L Hematocrit 27.0 L Mean Corpuscular Volume 84.4 Mean Corpuscular Hemoglobin 27.2 L Mean Corpuscular Hemoglobin Concent 32.2 Red Cell Distribution Width 15.5 H Platelet Count 244 Mean Platelet Volume 10.0 Immature Granulocytes % 0.900 H Neutrophils % 85.2 H Lymphocytes % 4.1 L Monocytes % 7.4 Eosinophils % 2.1 Basophils % 0.3 Nucleated Red Blood Cells % 0.0 Immature Granulocytes # 0.150 H Neutrophils # 14.4 H Lymphocytes # 0.7 L Monocytes # 1.3 H Eosinophils # 0.4 Basophils # 0.1 Nucleated Red Blood Cells # 0.0 Sodium Level 135 Potassium Level 4.1 Chloride Level 110 Carbon Dioxide Level 20 L Anion Gap 5 Blood Urea Nitrogen 15 Creatinine 1.08 Est Glomerular Filtrat Rate mL/min > 60 Glucose Level 109 Lactic Acid Level 0.8 Calcium Level 8.8 Magnesium Level 1.6 L Total Bilirubin 0.6 Direct Bilirubin 0.00 Indirect Bilirubin 0.6 Aspartate Amino Transf (AST/SGOT) 88 H Alanine Aminotransferase (ALT/SGPT) 84 H Alkaline Phosphatase 226 H Total Protein 5.7 L Albumin 2.5 L Globulin 3.20 Albumin/Globulin Ratio 0.78 Procalcitonin 1.64 H Medications Medication Current Medications Miscellaneous Information (* Miscellaneous Pharmacy Order) DURAMORPH: 0.2 MG SPI... GIVEN NEURAXIAL XX ; Start 09/13/18 at 16:30 IV Flush (NS 3 ml) 3 ml PER PROTOCOL IV ; Start 09/13/18 at 17:00 Acetaminophen (Tylenol Supp) 650 mg Q6H PRN [place] Fever; Start 09/13/18 at 17:00 Ondansetron HCl (Zofran Inj) 4 mg Q4H PRN IV NAUSEA AND/OR VOMITING; Start 09/13/18 at 17:00 Folic Acid (Folic Acid) 1 mg DAILY PO Last administered on 09/18/18at 09:06; Admin Dose 1 MG; Start 09/14/18 at 09:00 Labetalol HCl (Normodyne) 100 mg BID PO Last administered on 09/18/18at 09:06; Admin Dose 100 MG; Start 09/13/18 at 21:00 Multivit/Ca Carb/ B Cmplx/FA/Prenat (Flor-Elisa) 1 tab DAILY PO Last administered on 09/18/18 09:07; Admin Dose 1 TAB; Start 09/14/18 at 09:00 Nifedipine (Procardia Xl) 30 mg DAILY PO Last administered on 09/18/18 09:06; Admin Dose 30 MG; Start 09/14/18 at 09:00 Sodium Phosphate (Kphos Neutral) 1,000 mg BID PO Last administered on 09/18/18 09:05; Admin Dose 1,000 MG; Start 09/13/18 at 21:00 Hydromorphone HCl (Dilaudid) 1 mg Q4H PRN IV SEVERE PAIN LEVEL 7-10; Start 09/13/18 at 17:30 Calcitriol (Rocaltrol) 0.5 mcg DAILY PO Last administered on 09/18/18 09:06; Admin Dose 0.5 MCG; Start 09/14/18 at 09:00 Tacrolimus (Prograf) 1 mg BID PO Last administered on 09/18/18 09:06; Admin Dose 1 MG; Start 09/13/18 at 22:00 Leflunomide (Arava) 20 mg DAILY PO Last administered on 09/18/18 09:06; Admin Dose 20 MG; Start 09/14/18 at 09:00 Vancomycin/Sodium Chloride 250 ml @ 125 mls/hr Q12H IVPB Last administered on 09/18/18 03:03; Admin Dose 125 MLS/HR; Start 09/17/18 at 03:00 Acetaminophen (Tylenol Tab) 650 mg Q6H PRN PO MILD PAIN(1-3)OR ELEVATED TEMP Last administered on 09/17/18 20:44; Admin Dose 650 MG; Start 09/17/18 at 17:00 Vancomycin HCl (Vanco Iv Per Pharmacy) VANCOMYCIN PER PHARMACY PER PROTOCOL XX ; Start 09/17/18 at 17:00 Levofloxacin/ Dextrose 100 ml @ 100 mls/hr Q24H IVPB Last administered on 09/17/18 17:30; Admin Dose 100 MLS/HR; Start 09/17/18 at 17:30 Metronidazole 100 ml @ 100 mls/hr Q8 IVPB Last administered on 6/5/19at 06:53; Admin Dose 100 MLS/HR; Start 09/17/18 at 22:00 Aztreonam 2 gm/ Sodium Chloride 100 ml @ 100 mls/hr Q12 IVPB Last administered on 09/18/18at 09:04; Admin Dose 100 MLS/HR; Start 09/17/18 at 21:00 Magnesium Sulfate 50 ml @ 25 mls/hr ONCE ONCE IVPB ; Start 09/18/18 at 14:30; Stop 09/18/18 at 16:29 ERIN MONTOYA MD Sep 18, 2018 14:33
--- NOTE | 2018-09-18 15:33 | PN ---
Date/Time of Note Date/Time of Note DATE: 09/18/18 TIME: 15:32 Assessment/Plan VTE Prophylaxis Risk score (from Ns)>0 risk: 5 SCD applied (from [facility] [place]): Yes Pharmacological prophylaxis: NA/contraindicated Pharm contraindication: low risk/ambulating Lines/Catheters IV C[facility]ter Type (from [facility] Saline Lock Urinary Cath still in place: No Assessment/Plan Hospital Course 58-year-old male with comorbidities include hypertension, end-stage renal disease status post renal transplant, peripheral vascular disease, and right foot wound status post a TMA in the recent past with a stump infection that was non-salvageable who underwent an urgent left below-knee amputation on 09/13/2018. 1. Severe left peripheral artery disease with infected left TMA stump. -Status post urgent left below-knee amputation on 09/13/2018. -Antibiotics as per ID. 2. Hypotension status post surgical procedure-resolved -Etiology could be secondary to the multiple antihypertensives that he received in the operating room. 3. Sepsis with leukocytosis, febrile illness, and lactic acidosis secondary to lower extremity infection -Likely from residual infection -Pancultures have been sent, cultures currently negative -Antibiotics as per infectious diseases. 4. Hypertension (history). -Continue antihypertensives 5. Dyslipidemia. -Continue statins. 6. Peripheral vascular disease. -Continue statins -Hold antiplatelets because of recent surgery. 7. History of renal transplant. -Continue immunosuppressants. -Nephrology following. 8. Normocytic anemia. -Etiology could be multifactorial. -Continue iron supplements. DVT prophylaxis. -Right lower extremity SCD. DC plan: -Continue antimicrobials as per ID as patient is still septic -Replete electrolytes. -PT evaluation. 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 group home placement Result Diagram: 09/18/18 0547 09/18/18 0547 Results 24hrs Laboratory Tests Test 09/18/18 05:00 09/18/18 05:47 09/18/18 13:59 Urine Color YELLOW Urine Clarity CLEAR Urine pH 6.0 Urine Specific [place] 1.013 Urine Ketones NEGATIVE Urine Nitrite NEGATIVE Urine Bilirubin NEGATIVE Urine Urobilinogen NEGATIVE Urine Leukocyte Esterase NEGATIVE Urine Microscopic RBC 0 Urine Microscopic WBC 1 Urine Hemoglobin 1+ H Urine Glucose NEGATIVE Urine Total Protein NEGATIVE White Blood Count 16.9 H Red Blood Count 3.20 L Hemoglobin 8.7 L Hematocrit 27.0 L Mean Corpuscular Volume 84.4 Mean Corpuscular Hemoglobin 27.2 L Mean Corpuscular Hemoglobin Concent 32.2 Red Cell Distribution Width 15.5 H Platelet Count 244 Mean Platelet Volume 10.0 Immature Granulocytes % 0.900 H Neutrophils % 85.2 H Lymphocytes % 4.1 L Monocytes % 7.4 Eosinophils % 2.1 Basophils % 0.3 Nucleated Red Blood Cells % 0.0 Immature Granulocytes # 0.150 H Neutrophils # 14.4 H Lymphocytes # 0.7 L Monocytes # 1.3 H Eosinophils # 0.4 Basophils # 0.1 Nucleated Red Blood Cells # 0.0 Sodium Level 135 Potassium Level 4.1 Chloride Level 110 Carbon Dioxide Level 20 L Anion Gap 5 Blood Urea Nitrogen 15 Creatinine 1.08 Est Glomerular Filtrat Rate mL/min > 60 Glucose Level 109 Lactic Acid Level 0.8 Calcium Level 8.8 Magnesium Level 1.6 L Total Bilirubin 0.6 Direct Bilirubin 0.00 Indirect Bilirubin 0.6 Aspartate Amino Transf (AST/SGOT) 88 H Alanine Aminotransferase (ALT/SGPT) 84 H Alkaline Phosphatase 226 H Total Protein 5.7 L Albumin 2.5 L Globulin 3.20 Albumin/Globulin Ratio 0.78 Procalcitonin 1.64 H Vancomycin Level Trough 13.7 Subjective 24 Hr Interval Summary Constitutional: no complaints Exam/Review of Systems Exam Vitals Vital Signs Date Temp Pulse Resp B/P (MAP) Pulse Ox O2 O2 Flow FiO2 Time Delivery Rate 09/18/18 97.8 107 22 118/80 96 Room Air 12:19 (93) Intake and Output 09/17/18 09/17/18 09/18/18 1515:00 23:00 07:00 IntakeIntake Total 850 ml 400 ml OutputOutput Total 500 ml 600 ml BalanceBalance 350 ml -200 ml Constitutional: alert, oriented Respiratory: clear to auscultation Cardiovascular: regular rate and rhythm Gastrointestinal: soft; No distended Musculoskeletal: No nl extremities to inspection Results Results 24hrs Laboratory Tests Test 09/18/18 05:00 09/18/18 05:47 09/18/18 13:59 Urine Color YELLOW Urine Clarity CLEAR Urine pH 6.0 Urine Specific [place] 1.013 Urine Ketones NEGATIVE Urine Nitrite NEGATIVE Urine Bilirubin NEGATIVE Urine Urobilinogen NEGATIVE Urine Leukocyte Esterase NEGATIVE Urine Microscopic RBC 0 Urine Microscopic WBC 1 Urine Hemoglobin 1+ H Urine Glucose NEGATIVE Urine Total Protein NEGATIVE White Blood Count 16.9 H Red Blood Count 3.20 L Hemoglobin 8.7 L Hematocrit 27.0 L Mean Corpuscular Volume 84.4 Mean Corpuscular Hemoglobin 27.2 L Mean Corpuscular Hemoglobin Concent 32.2 Red Cell Distribution Width 15.5 H Platelet Count 244 Mean Platelet Volume 10.0 Immature Granulocytes % 0.900 H Neutrophils % 85.2 H Lymphocytes % 4.1 L Monocytes % 7.4 Eosinophils % 2.1 Basophils % 0.3 Nucleated Red Blood Cells % 0.0 Immature Granulocytes # 0.150 H Neutrophils # 14.4 H Lymphocytes # 0.7 L Monocytes # 1.3 H Eosinophils # 0.4 Basophils # 0.1 Nucleated Red Blood Cells # 0.0 Sodium Level 135 Potassium Level 4.1 Chloride Level 110 Carbon Dioxide Level 20 L Anion Gap 5 Blood Urea Nitrogen 15 Creatinine 1.08 Est Glomerular Filtrat Rate mL/min > 60 Glucose Level 109 Lactic Acid Level 0.8 Calcium Level 8.8 Magnesium Level 1.6 L Total Bilirubin 0.6 Direct Bilirubin 0.00 Indirect Bilirubin 0.6 Aspartate Amino Transf (AST/SGOT) 88 H Alanine Aminotransferase (ALT/SGPT) 84 H Alkaline Phosphatase 226 H Total Protein 5.7 L Albumin 2.5 L Globulin 3.20 Albumin/Globulin Ratio 0.78 Procalcitonin 1.64 H Vancomycin Level Trough 13.7 Medications Medication Current Medications Miscellaneous Information (* Miscellaneous Pharmacy Order) DURAMORPH: 0.2 MG SPI... GIVEN NEURAXIAL XX ; Start 09/13/18 at 16:30 IV Flush (NS 3 ml) 3 ml PER PROTOCOL IV ; Start 09/13/18 at 17:00 Acetaminophen (Tylenol Supp) 650 mg Q6H PRN [place] Fever; Start 09/13/18 at 17:00 Ondansetron HCl (Zofran Inj) 4 mg Q4H PRN IV NAUSEA AND/OR VOMITING; Start 09/13/18 at 17:00 Folic Acid (Folic Acid) 1 mg DAILY PO Last administered on 09/18/18at 09:06; A dmin Dose 1 MG; Start 09/14/18 at 09:00 Labetalol HCl (Normodyne) 100 mg BID PO Last administered on 09/18/18at 09:06; Admin Dose 100 MG; Start 09/13/18 at 21:00 Multivit/Ca Carb/ B Cmplx/FA/Prenat (Flor-Elisa) 1 tab DAILY PO Last administered on 09/18/18 09:07; Admin Dose 1 TAB; Start 09/14/18 at 09:00 Nifedipine (Procardia Xl) 30 mg DAILY PO Last administered on 09/18/18 09:06; Admin Dose 30 MG; Start 09/14/18 at 09:00 Sodium Phosphate (Kphos Neutral) 1,000 mg BID PO Last administered on 09/18/18 09:05; Admin Dose 1,000 MG; Start 09/13/18 at 21:00 Hydromorphone HCl (Dilaudid) 1 mg Q4H PRN IV SEVERE PAIN LEVEL 7-10; Start 09/13/18 at 17:30 Calcitriol (Rocaltrol) 0.5 mcg DAILY PO Last administered on 09/18/18 09:06; Admin Dose 0.5 MCG; Start 09/14/18 at 09:00 Tacrolimus (Prograf) 1 mg BID PO Last administered on 09/18/18 09:06; Admin Dose 1 MG; Start 09/13/18 at 22:00 Leflunomide (Arava) 20 mg DAILY PO Last administered on 09/18/18 09:06; Admin Dose 20 MG; Start 09/14/18 at 09:00 Vancomycin/Sodium Chloride 250 ml @ 125 mls/hr Q12H IVPB Last administered on 09/18/18 03:03; Admin Dose 125 MLS/HR; Start 09/17/18 at 03:00 Acetaminophen (Tylenol Tab) 650 mg Q6H PRN PO MILD PAIN(1-3)OR ELEVATED TEMP Last administered on 09/17/18 20:44; Admin Dose 650 MG; Start 09/17/18 at 17:00 Vancomycin HCl (Vanco Iv Per Pharmacy) VANCOMYCIN PER PHARMACY PER PROTOCOL XX ; Start 09/17/18 at 17:00 Levofloxacin/ Dextrose 100 ml @ 100 mls/hr Q24H IVPB Last administered on 09/17/18 17:30; Admin Dose 100 MLS/HR; Start 09/17/18 at 17:30 Metronidazole 100 ml @ 100 mls/hr Q8 IVPB Last administered on 09/18/18 14:35; Admin Dose 100 MLS/HR; Start 09/17/18 at 22:00 Aztreonam 2 gm/ Sodium Chloride 100 ml @ 100 mls/hr Q12 IVPB Last administered on 09/18/18at 09:04; Admin Dose 100 MLS/HR; Start 09/17/18 at 21:00 Magnesium Sulfate 50 ml @ 25 mls/hr ONCE ONCE IVPB ; Start 09/18/18 at 14:30; Stop 09/18/18 at 16:29 VANESA AVILES Sep 18, 2018 15:33
[2018-09-18] MEDS: LEVOFLOXACIN 500MG/D5W (PMX) 100 ML IVPB SCH (17:13)
[2018-09-18] MEDS: HYDROmorphONE 1 MG/ML SYG IV PRN (19:23)
[2018-09-19] VITALS (19 sets, daily range): BP systolic 104–134; BP diastolic 57–80; PULSE 100–111; RESP 17–21
[2018-09-19] MEDS: HYDROmorphONE 1 MG/ML SYG IV PRN ×2 (02:31→20:15)
[2018-09-19] MEDS: VANCOMYCIN 750 MG (PMX) 250 ML IVPB SCH ×2 (02:44→15:51)
[2018-09-19] MEDS: metroNIDAZOLE 500 MG/NS (PMX) 100 ML IVPB SCH ×3 (05:27→21:59)
[2018-09-19] MEDS ORDERED: BUPIVACAINE 0.75%/DEXT (SPINAL) 2 ML INJ ONE (07:00)
[2018-09-19] MEDS: AZTREONAM 2 GM in SOD CHLORIDE 0.9% 100 ML IVPB SCH ×2 (08:37→20:45)
[2018-09-19] MEDS: LEFLUNOMIDE 20 MG TAB PO SCH (08:38)
[2018-09-19] MEDS: CALCITRIOL 0.25 MCG CAP PO SCH (08:38)
[2018-09-19] MEDS: SOD PHOS MONO/DIBAS 250 MG TAB PO SCH ×2 (08:39→22:00)
[2018-09-19] MEDS: FOLIC ACID 1 MG TAB PO SCH (08:39)
[2018-09-19] MEDS: MULTIVIT/CA CARB/B CMPLX/FA TAB PO SCH (08:39)
[2018-09-19] MEDS: LABETALOL 100 MG TAB PO SCH ×2 (08:40→20:53)
[2018-09-19] MEDS: TACROLIMUS 1 MG CAP PO SCH ×2 (08:40→20:52)
[2018-09-19] MEDS: ENOXAPARIN 40 MG/0.4 ML SYG SC SCH (08:41)
[2018-09-19] MEDS: NIFEdipine (XL) 30 MG TAB PO SCH (08:43)
--- NOTE | 2018-09-19 09:40 | CONS ---
Assessment/Plan Assessment/Plan Hospital Course (Demo Recall) 1. Kidney transplant status. The patient had a cadaveric kidney transplant in 2006. He is on immunosuppressive therapy. His renal function today is back to normal. He had an infected gangrenous left foot and was septic. He is overall doing better. We will continue current medication and management. 2. 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 His left foot was infected and gangrenous. He now has a L stump that is draining dark bloody purulent material . He is scheduled for a debridement procedure on the left below the knee stump tomorrow. 3. Hypertension 4. Peripheral artery disease 5. Anemia 6. Hyperlipidemia. 7. Hypomagnesemia, will replace magnesium today.I suspect he is loosing magnesium through kidney . I have started him on an oral magnesium supplement. Consultation Date/Type/Reason Admit Date/Time September 13, 2018 at 11:48 Initial Consult Date 09/13/18 Type of Consult Nephrology Requesting Provider: DOMINIQUE BURGESS NP Date/Time of Note DATE: 09/19/18 TIME: 09:37 24 HR Interval Summary Free Text/Dictation This patient is an awake and alert today. He is now 6 days postop a left below the knee amputation for a gangrenous infected left foot. Yesterday on examination by Dr. Cortes the stump was found to have some dark purulent discharge. The patient is scheduled for a debridement procedure tomorrow. Constitutional: no complaints Exam/Review of Systems Exam Vitals Vital Signs Date Temp Pulse Resp B/P (MAP) Pulse Ox O2 O2 Flow FiO2 Time Delivery Rate 09/19/18 110 08:01 09/19/18 99.0 19 126/73 97 Room Air 07:40 (90) Intake and Output 09/18/18 09/18/18 09/19/18 1515:00 23:00 07:00 IntakeIntake Total 500 ml 650 ml OutputOutput Total 1100 ml 800 ml BalanceBalance -600 ml -150 ml Exam The left leg is status post a below the knee amputation. Constitutional: alert, oriented, frail Respiratory: clear to auscultation, normal air movement Cardiovascular: regular rate and rhythm Gastrointestinal: soft, non-tender Results Result Diagram: 09/19/18 0557 09/19/18 0557 Results 24hrs Laboratory Tests Test 09/18/18 13:59 09/18/18 19:00 09/19/18 05:57 Vancomycin Level Trough 13.7 Urine Random Creatinine 70.99 White Blood Count 17.3 H Red Blood Count 3.25 L Hemoglobin 8.7 L Hematocrit 28.1 L Mean Corpuscular Volume 86.5 Mean Corpuscular Hemoglobin 26.8 L Mean Corpuscular Hemoglobin Concent 31.0 L Red Cell Distribution Width 15.9 H Platelet Count 210 Mean Platelet Volume 10.0 Immature Granulocytes % 0.900 H Neutrophils % 84.9 H Lymphocytes % 4.3 L Monocytes % 7.4 Eosinophils % 2.0 Basophils % 0.5 Nucleated Red Blood Cells % 0.0 Immature Granulocytes # 0.160 H Neutrophils # 14.7 H Lymphocytes # 0.7 L Monocytes # 1.3 H Eosinophils # 0.4 Basophils # 0.1 Nucleated Red Blood Cells # 0.0 Sodium Level 137 Potassium Level 3.9 Chloride Level 112 H Carbon Dioxide Level 21 Anion Gap 4 L Blood Urea Nitrogen 14 Creatinine 1.07 Est Glomerular Filtrat Rate mL/min > 60 Glucose Level 97 Calcium Level 8.7 Phosphorus Level 2.9 Magnesium Level 1.8 Total Bilirubin 0.5 Direct Bilirubin 0.00 Indirect Bilirubin 0.5 Aspartate Amino Transf (AST/SGOT) 55 H Alanine Aminotransferase (ALT/SGPT) 67 Alkaline Phosphatase 191 H Total Protein 5.7 L Albumin 2.4 L Globulin 3.30 H Albumin/Globulin Ratio 0.72 Medications Medication Current Medications Miscellaneous Information (* Miscellaneous Pharmacy Order) DURAMORPH: 0.2 MG SPI... GIVEN NEURAXIAL XX ; Start 09/13/18 at 16:30 IV Flush (NS 3 ml) 3 ml PER PROTOCOL IV ; Start 09/13/18 at 17:00 Acetaminophen (Tylenol Supp) 650 mg Q6H PRN [place] Fever; Start 09/13/18 at 17:00 Ondansetron HCl (Zofran Inj) 4 mg Q4H PRN IV NAUSEA AND/OR VOMITING; Start 09/13/18 at 17:00 Folic Acid (Folic Acid) 1 mg DAILY PO Last administered on 09/19/18at 08:39; Admin Dose 1 MG; Start 09/14/18 at 09:00 Labetalol HCl (Normodyne) 100 mg BID PO Last administered on 09/19/18at 08:40; Admin Dose 100 MG; Start 09/13/18 at 21:00 Multivit/Ca Carb/ B Cmplx/FA/Prenat (Flor-Elisa) 1 tab DAILY PO Last administered on 09/19/18 08:39; Admin Dose 1 TAB; Start 09/14/18 at 09:00 Nifedipine (Procardia Xl) 30 mg DAILY PO Last administered on 09/19/18 08:43; Admin Dose 30 MG; Start 09/14/18 at 09:00 Sodium Phosphate (Kphos Neutral) 1,000 mg BID PO Last administered on 09/19/18 08:39; Admin Dose 1,000 MG; Start 09/13/18 at 21:00 Hydromorphone HCl (Dilaudid) 1 mg Q4H PRN IV SEVERE PAIN LEVEL 7-10 Last administered on 09/19/18 02:31; Admin Dose 1 MG; Start 09/13/18 at 17:30 Calcitriol (Rocaltrol) 0.5 mcg DAILY PO Last administered on 09/19/18 08:38; Admin Dose 0.5 MCG; Start 09/14/18 at 09:00 Tacrolimus (Prograf) 1 mg BID PO Last administered on 09/19/18 08:40; Admin Dose 1 MG; Start 09/13/18 at 22:00 Leflunomide (Arava) 20 mg DAILY PO Last administered on 09/19/18 08:38; Admin Dose 20 MG; Start 09/14/18 at 09:00 Vancomycin/Sodium Chloride 250 ml @ 125 mls/hr Q12H IVPB Last administered on 09/19/18 02:44; Admin Dose 125 MLS/HR; Start 09/17/18 at 03:00 Acetaminophen (Tylenol Tab) 650 mg Q6H PRN PO MILD PAIN(1-3)OR ELEVATED TEMP Last administered on 09/17/18 20:44; Admin Dose 650 MG; Start 09/17/18 at 17:00 Vancomycin HCl (Vanco Iv Per Pharmacy) VANCOMYCIN PER PHARMACY PER PROTOCOL XX ; Start 09/17/18 at 17:00 Levofloxacin/ Dextrose 100 ml @ 100 mls/hr Q24H IVPB Last administered on 09/18/18 17:13; Admin Dose 100 MLS/HR; Start 6/4/19 at 17:30 Metronidazole 100 ml @ 100 mls/hr Q8 IVPB Last administered on 09/19/18at 05:27; Admin Dose 100 MLS/HR; Start 09/17/18 at 22:00 Aztreonam 2 gm/ Sodium Chloride 100 ml @ 100 mls/hr Q12 IVPB Last administered on 09/19/18at 08:37; Admin Dose 100 MLS/HR; Start 09/17/18 at 21:00 Enoxaparin Sodium (Lovenox) 40 mg DAILY SC ; Start 09/19/18 at 09:00 ERIN MONTOYA MD Sep 19, 2018 09:40
[2018-09-19] MEDS: MAGNESIUM OXIDE 400 MG TAB PO SCH (10:41)
--- NOTE | 2018-09-19 11:07 | PREAC ---
Date/Time of Note Date/Time of Note DATE: 09/19/18 TIME: 11:06 Anesthesia Eval and Record Evaluation Time Pre-Procedure Interview DATE: 09/19/18 TIME: 11:06 Age 58 Sex male NPO: 8 hrs Preoperative diagnosis stump is infected Planned procedure LEFT BELOW THE KNEE AMPUTATION Past Medical History Past Medical History: Includes Cardio: HTN, Dyslipidemia Renal: CKD (S/P kidney transplant) Surgery & Anesthesia Issues No known issue Meds Anticoagulation: No Beta Claudine within 24 hr: No Reason Beta Claudine not given: Pt. not on B-Claudine Reported Medications Calcitriol* (Calcitriol*) 0.5 Mcg Capsule, 0.5 MCG PO TID, CAP 09/13/18 Leflunomide* (Leflunomide*) 20 Mg Tablet, 20 MG PO BID, #30 TAB 09/13/18 Tacrolimus* (Tacrolimus*) 1 Mg Capsule, 1 MG PO TID, CAP 09/13/18 Multivit/Ca Carb/B Cmplx/Fa* (Flor-Elisa*) 1 Tab Tab, 1 TAB PO DAILY, TAB 09/13/18 Phosphorus #1 (Phospha 250 Neutral Tablet) 250 Mg Tablet, 1000 MG PO BID, TAB 09/13/18 Iron Polysaccharides Complex (Ferrex 150) 150 Mg Capsule, 150 MG PO BID, #30 CAP 09/13/18 Nifedipine* (Nifedipine ER*) 30 Mg Tablet.sa, 30 MG PO DAILY, TAB.SA 09/13/18 Leflunomide* (Arava*) 20 Mg Tablet, 20 MG PO BID, TAB 09/13/18 Pravastatin Sodium* (Pravastatin Sodium*) 20 Mg Tablet, 20 MG PO HS, TAB 09/13/18 Clopidogrel Bisulfate (Clopidogrel) 75 Mg Tablet, 75 MG PO DAILY, #30 TAB 09/13/18 Folic Acid* (Folic Acid*) 1 Mg Tablet, 1 MG PO DAILY, TAB 09/13/18 Labetalol Hcl* (Labetalol Hcl*) 100 Mg Tablet, 100 MG PO BID, TAB 09/13/18 Discontinued Reported Medications Pravastatin Sodium* (Pravastatin Sodium*) 10 Mg Tablet, 5 MG PO HS, TAB 09/13/18 Current Medications Miscellaneous Information (* Miscellaneous Pharmacy Order) DURAMORPH: 0.2 MG SPI... GIVEN NEURAXIAL XX ; Start 09/13/18 at 16:30 IV Flush (NS 3 ml) 3 ml PER PROTOCOL IV ; Start 09/13/18 at 17:00 Acetaminophen (Tylenol Supp) 650 mg Q6H PRN TX Fever; Start 09/13/18 at 17:00 Ondansetron HCl (Zofran Inj) 4 mg Q4H PRN IV NAUSEA AND/OR VOMITING; Start 09/13/18 at 17:00 Folic Acid (Folic Acid) 1 mg DAILY PO Last administered on 09/19/18at 08:39; Admin Dose 1 MG; Start 09/14/18 at 09:00 Labetalol HCl (Normodyne) 100 mg BID PO Last administered on 09/19/18 08:40; Admin Dose 100 MG; Start 09/13/18 at 21:00 Multivit/Ca Carb/ B Cmplx/FA/Prenat (Flor-Elisa) 1 tab DAILY PO Last administered on 09/19/18 08:39; Admin Dose 1 TAB; Start 09/14/18 at 09:00 Nifedipine (Procardia Xl) 30 mg DAILY PO Last administered on 09/19/18at 08:43; Admin Dose 30 MG; Start 09/14/18 at 09:00 Sodium Phosphate (Kphos Neutral) 1,000 mg BID PO Last administered on 09/19/18 08:39; Admin Dose 1,000 MG; Start 09/13/18 at 21:00 Hydromorphone HCl (Dilaudid) 1 mg Q4H PRN IV SEVERE PAIN LEVEL 7-10 Last administered on 09/19/18 02:31; Admin Dose 1 MG; Start 09/13/18 at 17:30 Calcitriol (Rocaltrol) 0.5 mcg DAILY PO Last administered on 09/19/18 08:38; Admin Dose 0.5 MCG; Start 09/14/18 at 09:00 Tacrolimus (Prograf) 1 mg BID PO Last administered on 09/19/18 08:40; Admin Dose 1 MG; Start 09/13/18 at 22:00 Leflunomide (Arava) 20 mg DAILY PO Last administered on 09/19/18 08:38; Admin Dose 20 MG; Start 09/14/18 at 09:00 Vancomycin/Sodium Chloride 250 ml @ 125 mls/hr Q12H IVPB Last administered on 09/19/18at 02:44; Admin Dose 125 MLS/HR; Start 09/17/18 at 03:00 Acetaminophen (Tylenol Tab) 650 mg Q6H PRN PO MILD PAIN(1-3)OR ELEVATED TEMP Last administered on 09/17/18at 20:44; Admin Dose 650 MG; Start 09/17/18 at 17:00 Vancomycin HCl (Vanco Iv Per Pharmacy) VANCOMYCIN PER PHARMACY PER PROTOCOL XX ; Start 09/17/18 at 17:00 Levofloxacin/ Dextrose 100 ml @ 100 mls/hr Q24H IVPB Last administered on 09/18/18at 17:13; Admin Dose 100 MLS/HR; Start 09/17/18 at 17:30 Metronidazole 100 ml @ 100 mls/hr Q8 IVPB Last administered on 09/19/18at 05:27; Admin Dose 100 MLS/HR; Start 09/17/18 at 22:00 Aztreonam 2 gm/ Sodium Chloride 100 ml @ 100 mls/hr Q12 IVPB Last administered on 09/19/18at 08:37; Admin Dose 100 MLS/HR; Start 09/17/18 at 21:00 Enoxaparin Sodium (Lovenox) 40 mg DAILY SC ; Start 09/19/18 at 09:00 Magnesium Oxide (Mag-Ox 400) 400 mg DAILY PO Last administered on 09/19/18at 10:41; Admin Dose 400 MG; Start 09/19/18 at 10:00 Meds reviewed: Yes Allergies Coded Allergies: cefazolin (Verified Allergy, Intermediate, HIVES, 09/14/18) meropenem (Verified Allergy, Intermediate, 09/14/18) pruritus (observed on 09/13/2018) Allergies Reviewed: Yes Labs/Studies Labs Reviewed: Reviewed by anesthesiologist Result Diagram: 09/19/18 0557 09/19/18 0557 Laboratory Tests 09/19/18 05:57 test: N/A Studies: ECG (SR - RBBB), CXR (Normal heart size. Mild atherosclerotic change of the aorta. No focal infiltrate, pleural effusion, or overt congestive heart failure.) Pre-procedure Exam Last vitals Vital Signs Date Temp Pulse Resp B/P (MAP) Pulse Ox O2 O2 Flow FiO2 Time Delivery Rate 09/19/18 110 08:01 6/6/19 99.0 19 126/73 97 Room Air 07:40 (90) Airway: Adequate thyromental dist Mallampati: Mallampati II Teeth: Normal Lung: Normal Heart: Normal ASA Physical Status ASA physical status: 3 Emergency: None Planned Anesthetic General/MAC: ETT Pre-operative Attestations Prior to commencing anesthesia and surgery, the patient was re-evaluated, there was verification of: *The patient's identity *The results of appropriate recent lab work and preoperative vital signs *The above evaluation not changing prior to induction *Anesthetic plan, risk benefits, alternative and complications discussed with patient/family; questions answered; patient/family understands, accepts and wishes to proceed. NORA QUIROGA Sep 19, 2018 11:07
--- NOTE | 2018-09-19 11:43 | HPN ---
Date/Time of Note Date/Time of Note DATE: 09/19/18 TIME: 11:43 Interval H&P Admission Note Pt. seen H&P reviewed: No system changes AMARILIS IRBERA MD Sep 19, 2018 11:43
[2018-09-19] MEDS ORDERED: POLYMYXIN B 500000 UNIT INJ ONE (12:41)
[2018-09-19] MEDS ORDERED: BACITRACIN 50000 UNITS INJ ONE (12:42)
[2018-09-19] MEDS ORDERED: MIDAZOLAM 1 MG/ML 2 ML INJ ONE (12:49)
[2018-09-19] MEDS ORDERED: FENTAnyl 50 MCG/ML VIAL ONE (12:50)
[2018-09-19] MEDS ORDERED: morphine SULFATE/PF (10 MG/10 ML) INJ ONE (12:51)
[2018-09-19] MEDS ORDERED: VANCOMYCIN 1 GM (PMX) 250 ML ONE (13:32)
[2018-09-19] MEDS ORDERED: PHENYLephrine 10 MG INJ ONE (13:57)
[2018-09-19] MEDS ORDERED: LIDOCAINE 2% (SDV) 5 ML INJ ONE (13:58)
[2018-09-19] MEDS ORDERED: PROPOFOL 20 ML ONE (13:58)
--- NOTE | 2018-09-19 14:00 | SIPON ---
Date/Time of Note Date/Time of Note DATE: 09/19/18 TIME: 13:58 Operative Report Preoperative Diagnosis infected BKA stump Postoperative Diagnosis same Operation/Procedure Performed exploration, washout and debridement of infected BKA stump, VAC placement Surgeon see signature line wet process assistant head miller none Anesthesia: spinal Estimated blood loss: 10 - 50 ml's Transfusion Required none Specimen necrotic calf muscle and tendons, sent for C&S and pathology Grafts/Implants none Complications none AMARILIS RIBERA MD Sep 19, 2018 14:00
--- NOTE | 2018-09-19 14:18 | PAC ---
Date/Time of Note Date/Time of Note DATE: 09/19/18 TIME: 14:17 Post-Anesthesia Notes Post-Anesthesia Note Last documented vital signs Vital Signs Date Temp Pulse Resp B/P (MAP) Pulse Ox O2 O2 Flow FiO2 Time Delivery Rate 09/19/18 98.7 107 18 124/66 100 11:24 (85) 09/19/18 Room Air 07:40 Activity: WNL Respiratory function: WNL Cardiovascular function: WNL Mental status: Baseline Pain reasonably controlled: Yes Hydration appropriate: Yes Nausea/Vomiting absent: Yes Comments BP:118/56, P:88, Spo2:100%, T:99,8 DION GALVAN MD Sep 19, 2018 14:18
[2018-09-19] MEDS ORDERED: POLYMYXIN B 500000 UNIT INJ IRR ONE (14:21)
[2018-09-19] MEDS ORDERED: BACITRACIN 50000 UNITS INJ IRR ONE (14:22)
[2018-09-19] MEDS ORDERED: DIPHENHYDRAMINE 50 MG INJ IV PRN (14:30)
[2018-09-19] MEDS ORDERED: HYDROmorphONE 1 MG/5 ML IV SYRINGE IV PRN ×2 (14:30)
[2018-09-19] MEDS ORDERED: METOCLOPRAMIDE 10 MG INJ IV PRN (14:30)
[2018-09-19] MEDS ORDERED: ONDANSETRON 4 MG INJ IV PRN (14:30)
[2018-09-19] MEDS ORDERED: FENTAnyl 50 MCG/ML VIAL IV PRN (14:30)
--- NOTE | 2018-09-19 14:47 | OPR ---
DATE OF OPERATION: 09/19/2018 PREOPERATIVE DIAGNOSIS: Infected left below knee amputation stump. POSTOPERATIVE DIAGNOSIS: Infected left below knee amputation stump. PROCEDURE PERFORMED: Exploration and washout, debridement and VAC placement left infected below knee amputation stump. SURGEON: Amarilis Cortes MD ANESTHESIA: Spinal anesthesia. ESTIMATED BLOOD LOSS: 50 mL. COMPLICATIONS: There are no intraprocedural complications. INDICATIONS: This is a 58-year-old gentleman. He has had a kidney transplantation. He is immunosup pressed. He had a left below knee amputation 6 days ago. He had basically necrotic foot, was not sa lvageable. When I did the amputation, there is a lot of edema in the calf muscles, but it did not ap pear infected. There was pus in the tissue. I irrigated it out quite well. He has been on multiple antibiotics. Despite that yesterday, his white count spiked up. He had a fever. I looked at the s tump and I expressed just infected blood. It was not healing. I took out some of the stitches and d rained as much of the pus out as I could and I brought him in today for a washout. DESCRIPTION OF PROCEDURE: The patient was brought to the operating room and placed on the table in s upine position. After spinal anesthesia was placed, left leg was prepped and draped in the usual kvng rile fashion. I opened up the previous DKA incision. It was still intact. I removed all the staple s. There was some blistering of the skin on the lateral aspect of the flap. I drained that. I drai satya some serous fluid from there. Once I opened up the stump, there was kind of foul smelling bloody fluid in the base and actually was tracking up. Even towards the knee, there was a pocket of pus. I drained all of that pus and old blood. It was not hematoma, just some bloody pus in the tissue. T he calf muscle all looked necrotic unfortunately so I debrided it away most of the calf muscle. Ther e is a little bit of it left. It is still look alive and perfused. The rest was just and necrotic a nd then I removed all of that. I sent it for culture and the rest of it to pathology. I cut away so me necrotic tendon. The skin flap is marginally viable. It is not clear if it will survive or not. After I removed all the necrotic tissue, I irrigated it with pulse jet performance reporter with bacitracin Fran ymyxin. Copiously, I used probably 2 liters of irrigation under pressure. I then did a little more debridement and then I irrigated it again to make sure I cleaned everything out and able to close the stump. I would close the incision again obviously because of the ongoing infection. I just took pi adela of foam and then placed in the base of the incision then brought the skin up and impact it withou t putting any further sutures in. I then made sure there was a good seal. The patient was transferr ed to recovery room in stable condition. He will almost certainly need an above knee amputation, but I want to make sure the infection is completely cleared before I proceed higher. He is on multiple antibiotics. He has been cultured now several times and infectious disease on board. We are going t o change the VAC 3 times a week then I will drain it and make sure the infection was drained. I did not see any remaining necrotic tissue left, but I do not think there is enough tissue left there to r econstruct the below knee amputation. We will have to bring him back for an above knee amputation ne xt week. Dictated By: AMARILIS DELGADO/WADE Conf#: [id number] DID#: [id number] CC: JACKIE ARIAS MD; ERIN MONTOYA MD; VANESA AVILES MD; ZAN BURKETT MD;*End*
--- NOTE | 2018-09-19 15:01 | PN ---
Date/Time of Note Date/Time of Note DATE: 09/19/18 TIME: 14:59 Assessment/Plan VTE Prophylaxis Risk score (from Ns)>0 risk: 1 SCD applied (from Nsg): Yes Pharmacological prophylaxis: LMWH Lines/Catheters IV Catheter Type (from Nrs): Saline Lock Urinary Cath still in place: No Assessment/Plan Hospital Course 58-year-old male with comorbidities include hypertension, end-stage renal di sease status post renal transplant, peripheral vascular disease, and right foot wound status post a TMA in the recent past with a stump infection that was non- salvageable who underwent an urgent left below-knee amputation on 09/13/2018. 1. Severe left peripheral artery disease with infected left TMA stump. -Status post urgent left below-knee amputation on 09/13/2018. -Antibiotics as per ID. 2. Hypotension status post surgical procedure-resolved -Etiology could be secondary to the multiple antihypertensives that he received in the operating room. 3. Sepsis with leukocytosis, febrile illness, and lactic acidosis secondary to lower extremity infection -Likely from residual infection -Pancultures have been sent, cultures currently negative -Antibiotics as per infectious diseases. 4. Hypertension (history). -Continue antihypertensives 5. Dyslipidemia. -Continue statins. 6. Peripheral vascular disease. -Continue statins -Hold antiplatelets because of recent surgery. 7. History of renal transplant. -Continue immunosuppressants. -Nephrology following. 8. Normocytic anemia. -Etiology could be multifactorial. -Continue iron supplements. DVT prophylaxis. -Lovenox DC plan: -Continue antimicrobials as per ID as patient is still septic -Replete electrolytes. -PT evaluation. -school operations manager for halfway placement Result Diagram: 09/19/18 0557 09/19/18 0557 Results 24hrs Laboratory Tests Test 09/18/18 19:00 09/19/18 05:57 Urine Random Creatinine 70.99 White Blood Count 17.3 H Red Blood Count 3.25 L Hemoglobin 8.7 L Hematocrit 28.1 L Mean Corpuscular Volume 86.5 Mean Corpuscular Hemoglobin 26.8 L Mean Corpuscular Hemoglobin Concent 31.0 L Red Cell Distribution Width 15.9 H Platelet Count 210 Mean Platelet Volume 10.0 Immature Granulocytes % 0.900 H Neutrophils % 84.9 H Lymphocytes % 4.3 L Monocytes % 7.4 Eosinophils % 2.0 Basophils % 0.5 Nucleated Red Blood Cells % 0.0 Immature Granulocytes # 0.160 H Neutrophils # 14.7 H Lymphocytes # 0.7 L Monocytes # 1.3 H Eosinophils # 0.4 Basophils # 0.1 Nucleated Red Blood Cells # 0.0 Sodium Level 137 Potassium Level 3.9 Chloride Level 112 H Carbon Dioxide Level 21 Anion Gap 4 L Blood Urea Nitrogen 14 Creatinine 1.07 Est Glomerular Filtrat Rate mL/min > 60 Glucose Level 97 Calcium Level 8.7 Phosphorus Level 2.9 Magnesium Level 1.8 Total Bilirubin 0.5 Direct Bilirubin 0.00 Indirect Bilirubin 0.5 Aspartate Amino Transf (AST/SGOT) 55 H Alanine Aminotransferase (ALT/SGPT) 67 Alkaline Phosphatase 191 H Total Protein 5.7 L Albumin 2.4 L Globulin 3.30 H Albumin/Globulin Ratio 0.72 Subjective 24 Hr Interval Summary Constitutional: no complaints Exam/Review of Systems Exam Vitals Vital Signs Date Temp Pulse Resp B/P (MAP) Pulse Ox O2 O2 Flow FiO2 Time Delivery Rate 09/19/18 98.9 103 18 119/68 97 Room Air 14:56 (85) Intake and Output 09/18/18 09/18/18 09/19/18 1414:59 22:59 06:59 IntakeIntake Total 500 ml 650 ml OutputOutput Total 1100 ml 800 ml BalanceBalance -600 ml -150 ml Constitutional: alert, oriented Respiratory: clear to auscultation Cardiovascular: regular rate and rhythm Gastrointestinal: soft; No distended Musculoskeletal: nl extremities to inspection Results Results 24hrs Laboratory Tests Test 09/18/18 19:00 09/19/18 05:57 Urine Random Creatinine 70.99 White Blood Count 17.3 H Red Blood Count 3.25 L Hemoglobin 8.7 L Hematocrit 28.1 L Mean Corpuscular Volume 86.5 Mean Corpuscular Hemoglobin 26.8 L Mean Corpuscular Hemoglobin Concent 31.0 L Red Cell Distribution Width 15.9 H Platelet Count 210 Mean Platelet Volume 10.0 Immature Granulocytes % 0.900 H Neutrophils % 84.9 H Lymphocytes % 4.3 L Monocytes % 7.4 Eosinophils % 2.0 Basophils % 0.5 Nucleated Red Blood Cells % 0.0 Immature Granulocytes # 0.160 H Neutrophils # 14.7 H Lymphocytes # 0.7 L Monocytes # 1.3 H Eosinophils # 0.4 Basophils # 0.1 Nucleated Red Blood Cells # 0.0 Sodium Level 137 Potassium Level 3.9 Chloride Level 112 H Carbon Dioxide Level 21 Anion Gap 4 L Blood Urea Nitrogen 14 Creatinine 1.07 Est Glomerular Filtrat Rate mL/min > 60 Glucose Level 97 Calcium Level 8.7 Phosphorus Level 2.9 Magnesium Level 1.8 Total Bilirubin 0.5 Direct Bilirubin 0.00 Indirect Bilirubin 0.5 Aspartate Amino Transf (AST/SGOT) 55 H Alanine Aminotransferase (ALT/SGPT) 67 Alkaline Phosphatase 191 H Total Protein 5.7 L Albumin 2.4 L Globulin 3.30 H Albumin/Globulin Ratio 0.72 Medications Medication Current Medications Miscellaneous Information (* Miscellaneous Pharmacy Order) DURAMORPH: 0.2 MG SPI... GIVEN NEURAXIAL XX ; Start 09/13/18 at 16:30 IV Flush (NS 3 ml) 3 ml PER PROTOCOL IV ; Start 09/13/18 at 17:00 Acetaminophen (Tylenol Supp) 650 mg Q6H PRN TX Fever; Start 09/13/18 at 17:00 Ondansetron HCl (Zofran Inj) 4 mg Q4H PRN IV NAUSEA AND/OR VOMITING; Start 09/13/18 at 17:00 Folic Acid (Folic Acid) 1 mg DAILY PO Last administered on 09/19/18 08:39; Admin Dose 1 MG; Start 09/14/18 at 09:00 Labetalol HCl (Normodyne) 100 mg BID PO Last administered on 09/19/18 08:40; A dmin Dose 100 MG; Start 09/13/18 at 21:00 Multivit/Ca Carb/ B Cmplx/FA/Prenat (Flor-Elisa) 1 tab DAILY PO Last administered on 09/19/18 08:39; Admin Dose 1 TAB; Start 09/14/18 at 09:00 Nifedipine (Procardia Xl) 30 mg DAILY PO Last administered on 09/19/18 08:43; Admin Dose 30 MG; Start 09/14/18 at 09:00 Sodium Phosphate (Kphos Neutral) 1,000 mg BID PO Last administered on 09/19/18 08:39; Admin Dose 1,000 MG; Start 09/13/18 at 21:00 Hydromorphone HCl (Dilaudid) 1 mg Q4H PRN IV SEVERE PAIN LEVEL 7-10 Last administered on 09/19/18 02:31; Admin Dose 1 MG; Start 09/13/18 at 17:30 Calcitriol (Rocaltrol) 0.5 mcg DAILY PO Last administered on 09/19/18 08:38; Admin Dose 0.5 MCG; Start 09/14/18 at 09:00 Tacrolimus (Prograf) 1 mg BID PO Last administered on 09/19/18 08:40; Admin Dose 1 MG; Start 09/13/18 at 22:00 Leflunomide (Arava) 20 mg DAILY PO Last administered on 09/19/18 08:38; Admin Dose 20 MG; Start 09/14/18 at 09:00 Vancomycin/Sodium Chloride 250 ml @ 125 mls/hr Q12H IVPB Last administered on 09/19/18 02:44; Admin Dose 125 MLS/HR; Start 09/17/18 at 03:00 Acetaminophen (Tylenol Tab) 650 mg Q6H PRN PO MILD PAIN(1-3)OR ELEVATED TEMP Last administered on 09/17/18 20:44; Admin Dose 650 MG; Start 09/17/18 at 17:00 Vancomycin HCl (Vanco Iv Per Pharmacy) VANCOMYCIN PER PHARMACY PER PROTOCOL XX ; Start 09/17/18 at 17:00 Levofloxacin/ Dextrose 100 ml @ 100 mls/hr Q24H IVPB Last administered on 09/18/18 17:13; Admin Dose 100 MLS/HR; Start 09/17/18 at 17:30 Metronidazole 100 ml @ 100 mls/hr Q8 IVPB Last administered on 09/19/18 05:27; Admin Dose 100 MLS/HR; Start 09/17/18 at 22:00 Aztreonam 2 gm/ Sodium Chloride 100 ml @ 100 mls/hr Q12 IVPB Last administered on 09/19/18 08:37; Admin Dose 100 MLS/HR; Start 09/17/18 at 21:00 Enoxaparin Sodium (Lovenox) 40 mg DAILY SC ; Start 09/19/18 at 09:00 Magnesium Oxide (Mag-Ox 400) 400 mg DAILY PO Last administered on 09/19/18 10:41; Admin Dose 400 MG; Start 09/19/18 at 10:00 Hydromorphone HCl (Dilaudid) 0.2 mg PACU PRN IV MILD PAIN 1-3; Start 09/19/18 at 14:30; Stop 09/19/18 at 21:00 Hydromorphone HCl (Dilaudid) 0.4 mg PACU PRN IV MOD PAIN 4-6; Start 09/19/18 at 14:30; Stop 09/19/18 at 21:00 Fentanyl (Sublimaze) 25 mcg PACU ORDER PRN IV MILD PAIN 1-3; Start 09/19/18 at 14:30; Stop 09/19/18 at 21:00 Ondansetron HCl (Zofran Inj) 4 mg PACU ORDER PRN IV NAUSEA/VOMITING; Start 09/19/18 at 14:30; Stop 09/19/18 at 21:00 Metoclopramide HCl (Reglan) 10 mg PACU ORDER PRN IV NAUSEA/VOMITING; Start 09/19/18 at 14:30; Stop 09/19/18 at 21:00 Diphenhydramine HCl (Benadryl) 25 mg PACU ORDER PRN IV .PRURITUS; Start 09/19/18 at 14:30; Stop 09/19/18 at 21:00 VANESA AVILES Sep 19, 2018 15:01
--- NOTE | 2018-09-19 16:56 | EN ---
Date/Time of Note Date/Time of Note DATE: 09/19/18 TIME: 16:54 Event Note Medicine Medicine Event Note EMR reviewed. remains afeb, elevated wbc, cx neg. serial markers. Will further direct care with veterans' counselor shortly. full note to follow. JACKIE ARIAS MD Sep 19, 2018 16:56
[2018-09-19] MEDS: LEVOFLOXACIN 500MG/D5W (PMX) 100 ML IVPB SCH (16:59)
--- NOTE | 2018-09-19 17:01 | CONS ---
Assessment/Plan Assessment/Plan Hospital Course (Demo Recall) - sepsis due infected left BKA stump - elevated procalcitonin - downward trending - infected left below knee amputation stump, s/p Exploration and washout, debridement and VAC placement left infected below knee amputation stump on 09/19/2018 - h/o draining wound, necrosis and infection of L TMA site. ESR 121 on 09/12/2018. 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 All the infected tissue was removed by L BKA according to Dr. Cortes progress note - h/o gangrene and infection of L foot - hypertension - h/o renal transplant at [facility] in 2006, maintained on tacrolimus - immunocompromised status - expected post-op anemia - transaminitis - improving - hypomagnesemia - repleted - adverse reaction to cefazolin (hives), meropenem (pruritus) Recommendations: - continue IV vancomycin, and aztreonam (09/13/2018-) - continue levofloxacin and metronidazole (09/17/2018-) - f/u urine cx (NGTD; UA was neg), blood cultures 09/17/18 (NGTD), wound cx (NGTD), anaerobic cx, fungus cx, and pathology - low threshold to add antifungal if spikes again - ordered AM procalcitonin - trend WBC and fever curve Management d/w patient, XAVIER Mejía, and with Dr. Bailey Consultation Date/Type/Reason Admit Date/Time September 13, 2018 at 11:48 Initial Consult Date 09/13/18 Type of Consult Infectious Disease Requesting Provider: DOMINIQUE BURGESS NP Date/Time of Note DATE: 09/19/18 TIME: 16:47 24 HR Interval Summary Free Text/Dictation Uptick in WBC with low grade temp. Tmax 100.7F despite broadening of abx two days ago. Pt with infected left below knee amputation stump. Taken to OR today. S/p Exploration and washout, debridement and VAC placement left infected below knee amputation stump. Planning L AKA next week per Dr. Cortes OR report. Pt rates L BKA stump pain 210. Denies SOB, n/v/d, dysuria. Exam/Review of Systems Exam Vitals Vital Signs Date Temp Pulse Resp B/P (MAP) Pulse Ox O2 O2 Flow FiO2 Time Delivery Rate 09/19/18 104 16:01 09/19/18 98.7 18 105/71 94 15:44 (82) 09/19/18 Room Air 14:56 Intake and Output 09/18/18 09/18/18 09/19/18 1515:00 23:00 07:00 IntakeIntake Total 500 ml 650 ml OutputOutput Total 1100 ml 800 ml BalanceBalance -600 ml -150 ml Exam Constitutional: alert, oriented, well developed Psych: no complaints, nl mood/affect Head: normocephalic, atraumatic Eyes: nl conjunctiva, nl lids, nl sclera ENMT: nl external ears & nose, nl nasal mucosa & septum, mucosa pink and moist (no thrush) Neck: supple Respiratory: clear to auscultation, normal air movement Cardiovascular: regular rate and rhythm, nl pulses Gastrointestinal: soft, non-tender; No distended Genitourinary - Male: other (No Don) Musculoskeletal: other (L BKA wrapped with KATHIE bandage and connected to wound VAC with serosanguinous output) Extremities: normal pulses; No edema 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: nl mental status, nl speech, other (answers simple questions appropriately; follows commands) Skin: nl turgor; No rash or lesions Results Result Diagram: 09/19/18 0557 09/19/18 0557 Results 24hrs Laboratory Tests Test 09/18/18 19:00 09/19/18 05:57 Urine Random Creatinine 70.99 White Blood Count 17.3 H Red Blood Count 3.25 L Hemoglobin 8.7 L Hematocrit 28.1 L Mean Corpuscular Volume 86.5 Mean Corpuscular Hemoglobin 26.8 L Mean Corpuscular Hemoglobin Concent 31.0 L Red Cell Distribution Width 15.9 H Platelet Count 210 Mean Platelet Volume 10.0 Immature Granulocytes % 0.900 H Neutrophils % 84.9 H Lymphocytes % 4.3 L Monocytes % 7.4 Eosinophils % 2.0 Basophils % 0.5 Nucleated Red Blood Cells % 0.0 Immature Granulocytes # 0.160 H Neutrophils # 14.7 H Lymphocytes # 0.7 L Monocytes # 1.3 H Eosinophils # 0.4 Basophils # 0.1 Nucleated Red Blood Cells # 0.0 Sodium Level 137 Potassium Level 3.9 Chloride Level 112 H Carbon Dioxide Level 21 Anion Gap 4 L Blood Urea Nitrogen 14 Creatinine 1.07 Est Glomerular Filtrat Rate mL/min > 60 Glucose Level 97 Calcium Level 8.7 Phosphorus Level 2.9 Magnesium Level 1.8 Total Bilirubin 0.5 Direct Bilirubin 0.00 Indirect Bilirubin 0.5 Aspartate Amino Transf (AST/SGOT) 55 H Alanine Aminotransferase (ALT/SGPT) 67 Alkaline Phosphatase 191 H Total Protein 5.7 L Albumin 2.4 L Globulin 3.30 H Albumin/Globulin Ratio 0.72 Imaging Imaging CXR 09/18/2018: No significant interval change.. Cardiomegaly and atherosclerotic aorta. Possible small hiatal hernia. Medications Medication Current Medications Miscellaneous Information (* Miscellaneous Pharmacy Order) DURAMORPH: 0.2 MG SPI... GIVEN NEURAXIAL XX ; Start 09/13/18 at 16:30 IV Flush (NS 3 ml) 3 ml PER PROTOCOL IV ; Start 09/13/18 at 17:00 Acetaminophen (Tylenol Supp) 650 mg Q6H PRN [place] Fever; Start 09/13/18 at 17:00 Ondansetron HCl (Zofran Inj) 4 mg Q4H PRN IV NAUSEA AND/OR VOMITING; Start 09/13/18 at 17:00 Folic Acid (Folic Acid) 1 mg DAILY PO Last administered on 09/19/18at 08:39; Ad min Dose 1 MG; Start 09/14/18 at 09:00 Labetalol HCl (Normodyne) 100 mg BID PO Last administered on 09/19/18at 08:40; Admin Dose 100 MG; Start 09/13/18 at 21:00 Multivit/Ca Carb/ B Cmplx/FA/Prenat (Flor-Elisa) 1 tab DAILY PO Last administered on 09/19/18 08:39; Admin Dose 1 TAB; Start 09/14/18 at 09:00 Nifedipine (Procardia Xl) 30 mg DAILY PO Last administered on 09/19/18 08:43; Admin Dose 30 MG; Start 09/14/18 at 09:00 Sodium Phosphate (Kphos Neutral) 1,000 mg BID PO Last administered on 09/19/18 08:39; Admin Dose 1,000 MG; Start 09/13/18 at 21:00 Hydromorphone HCl (Dilaudid) 1 mg Q4H PRN IV SEVERE PAIN LEVEL 7-10 Last administered on 09/19/18at 02:31; Admin Dose 1 MG; Start 09/13/18 at 17:30 Calcitriol (Rocaltrol) 0.5 mcg DAILY PO Last administered on 09/19/18 08:38; Admin Dose 0.5 MCG; Start 09/14/18 at 09:00 Tacrolimus (Prograf) 1 mg BID PO Last administered on 09/19/18 08:40; Admin Do se 1 MG; Start 09/13/18 at 22:00 Leflunomide (Arava) 20 mg DAILY PO Last administered on 09/19/18 08:38; Admin Dose 20 MG; Start 09/14/18 at 09:00 Vancomycin/Sodium Chloride 250 ml @ 125 mls/hr Q12H IVPB Last administered on 09/19/18 15:51; Admin Dose 125 MLS/HR; Start 09/17/18 at 03:00 Acetaminophen (Tylenol Tab) 650 mg Q6H PRN PO MILD PAIN(1-3)OR ELEVATED TEMP Last administered on 09/17/18 20:44; Admin Dose 650 MG; Start 09/17/18 at 17:00 Vancomycin HCl (Vanco Iv Per Pharmacy) VANCOMYCIN PER PHARMACY PER PROTOCOL XX ; Start 09/17/18 at 17:00 Levofloxacin/ Dextrose 100 ml @ 100 mls/hr Q24H IVPB Last administered on 09/18/18 17:13; Admin Dose 100 MLS/HR; Start 09/17/18 at 17:30 Metronidazole 100 ml @ 100 mls/hr Q8 IVPB Last administered on 09/19/18 15:35; Admin Dose 100 MLS/HR; Start 09/17/18 at 22:00 Aztreonam 2 gm/ Sodium Chloride 100 ml @ 100 mls/hr Q12 IVPB Last administered on 09/19/18 08:37; Admin Dose 100 MLS/HR; Start 09/17/18 at 21:00 Enoxaparin Sodium (Lovenox) 40 mg DAILY SC ; Start 09/19/18 at 09:00 Magnesium Oxide (Mag-Ox 400) 400 mg DAILY PO Last administered on 09/19/18 10:41; Admin Dose 400 MG; Start 09/19/18 at 10:00 Hydromorphone HCl (Dilaudid) 0.2 mg PACU PRN IV MILD PAIN 1-3; Start 09/19/18 at 14:30; Stop 09/19/18 at 21:00 Hydromorphone HCl (Dilaudid) 0.4 mg PACU PRN IV MOD PAIN 4-6; Start 09/19/18 at 14:30; Stop 09/19/18 at 21:00 Fentanyl (Sublimaze) 25 mcg PACU ORDER PRN IV MILD PAIN 1-3; Start 09/19/18 at 14:30; Stop 09/19/18 at 21:00 Ondansetron HCl (Zofran Inj) 4 mg PACU ORDER PRN IV NAUSEA/VOMITING; Start 09/19/18 at 14:30; Stop 09/19/18 at 21:00 Metoclopramide HCl (Reglan) 10 mg PACU ORDER PRN IV NAUSEA/VOMITING; Start 09/19/18 at 14:30; Stop 09/19/18 at 21:00 Diphenhydramine HCl (Benadryl) 25 mg PACU ORDER PRN IV .PRURITUS; Start 09/19/18 at 14:30; Stop 09/19/18 at 21:00 ROSALBA MARTI NP Sep 19, 2018 16:57
[2018-09-20] VITALS (9 sets, daily range): BP systolic 93–129; BP diastolic 62–74; PULSE 89–150; RESP 18–20
[2018-09-20] MEDS: VANCOMYCIN 750 MG (PMX) 250 ML IVPB SCH ×2 (02:22→16:30)
[2018-09-20] MEDS: metroNIDAZOLE 500 MG/NS (PMX) 100 ML IVPB SCH ×3 (05:43→22:06)
--- NOTE | 2018-09-20 08:29 | CONS ---
Assessment/Plan Assessment/Plan Hospital Course (Demo Recall) 1. Kidney transplant status. The patient had a cadaveric kidney transplant in 2006. He is on immunosuppressive therapy. His renal function today is back to normal : Although his serum creatinine is slightly higher than yesterday. 2. 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 His left foot was infected and gangrenous. He now has a L stump that is draining dark bloody pu rulent material . He underwent surgery yesterday. The left stump wound was opened, drained, debrided and washed out. 3. Hypertension 4. Peripheral artery disease 5. Anemia 6. Hyperlipidemia. 7. Hypomagnesemia, will replace magnesium today.I suspect he is loosing magnesium through kidney . I have started him on an oral magnesium supplement. Consultation Date/Type/Reason Admit Date/Time September 13, 2018 at 11:48 Initial Consult Date 09/13/18 Type of Consult Nephrology Requesting Provider: DOMINIQUE BURGESS NP Date/Time of Note DATE: 09/20/18 TIME: 08:23 24 HR Interval Summary Free Text/Dictation Alphonso is awake and alert. He underwent a surgery yesterday which included a opening of the wound on his left BKA stump with washout and debridement. He has no complaints today. Constitutional: no complaints, improved Exam/Review of Systems Exam Vitals Vital Signs Date Temp Pulse Resp B/P (MAP) Pulse Ox O2 O2 Flow FiO2 Time Delivery Rate 09/20/18 98.3 114 18 112/70 100 Room Air 07:35 (84) Intake and Output 09/19/18 09/19/18 09/20/18 1515:00 23:00 07:00 IntakeIntake Total 200 ml 200 ml 700 ml OutputOutput Total 210 ml 600 ml BalanceBalance -10 ml 200 ml 100 ml Exam He is status post a left below the knee amputation because of a gangrenous infected left foot. Constitutional: alert, oriented Neck: supple, non-tender Respiratory: clear to auscultation, normal air movement Cardiovascular: regular rate and rhythm Gastrointestinal: soft, non-tender Results Result Diagram: 09/20/18 0531 09/20/18 0531 Results 24hrs Laboratory Tests Test 09/20/18 05:31 White Blood Count 15.5 H Red Blood Count 2.97 L Hemoglobin 7.9 L Hematocrit 25.7 L Mean Corpuscular Volume 86.5 Mean Corpuscular Hemoglobin 26.6 L Mean Corpuscular Hemoglobin Concent 30.7 L Red Cell Distribution Width 15.9 H Platelet Count 227 Mean Platelet Volume 10.3 Immature Granulocytes % 0.700 H Neutrophils % 83.8 H Lymphocytes % 4.3 L Monocytes % 7.5 Eosinophils % 3.3 Basophils % 0.4 Nucleated Red Blood Cells % 0.0 Immature Granulocytes # 0.110 H Neutrophils # 13.0 H Lymphocytes # 0.7 L Monocytes # 1.2 H Eosinophils # 0.5 Basophils # 0.1 Nucleated Red Blood Cells # 0.0 Sodium Level 140 Potassium Level 3.7 Chloride Level 114 H Carbon Dioxide Level 19 L Anion Gap 7 Blood Urea Nitrogen 17 Creatinine 1.24 Est Glomerular Filtrat Rate mL/min 60 Glucose Level 102 Calcium Level 9.1 Procalcitonin 1.52 H Medications Medication Current Medications Miscellaneous Information (* Miscellaneous Pharmacy Order) DURAMORPH: 0.2 MG SPI... GIVEN NEURAXIAL XX ; Start 09/13/18 at 16:30 IV Flush (NS 3 ml) 3 ml PER PROTOCOL IV ; Start 09/13/18 at 17:00 Acetaminophen (Tylenol Supp) 650 mg Q6H PRN [place] Fever; Start 09/13/18 at 17:00 Ondansetron HCl (Zofran Inj) 4 mg Q4H PRN IV NAUSEA AND/OR VOMITING; Start 09/13/18 at 17:00 Folic Acid (Folic Acid) 1 mg DAILY PO Last administered on 09/19/18at 08:39; Ad min Dose 1 MG; Start 09/14/18 at 09:00 Labetalol HCl (Normodyne) 100 mg BID PO Last administered on 09/19/18at 20:53; Admin Dose 100 MG; Start 09/13/18 at 21:00 Multivit/Ca Carb/ B Cmplx/FA/Prenat (Flor-Elisa) 1 tab DAILY PO Last administered on 09/19/18at 08:39; Admin Dose 1 TAB; Start 09/14/18 at 09:00 Nifedipine (Procardia Xl) 30 mg DAILY PO Last administered on 09/19/18at 08:43; Admin Dose 30 MG; Start 09/14/18 at 09:00 Sodium Phosphate (Kphos Neutral) 1,000 mg BID PO Last administered on 09/19/18 22:00; Admin Dose 1,000 MG; Start 09/13/18 at 21:00 Hydromorphone HCl (Dilaudid) 1 mg Q4H PRN IV SEVERE PAIN LEVEL 7-10 Last administered on 09/19/18 20:15; Admin Dose 1 MG; Start 09/13/18 at 17:30 Calcitriol (Rocaltrol) 0.5 mcg DAILY PO Last administered on 09/19/18 08:38; Admin Dose 0.5 MCG; Start 09/14/18 at 09:00 Tacrolimus (Prograf) 1 mg BID PO Last administered on 09/19/18 20:52; Admin Do se 1 MG; Start 09/13/18 at 22:00 Leflunomide (Arava) 20 mg DAILY PO Last administered on 09/19/18 08:38; Admin Dose 20 MG; Start 09/14/18 at 09:00 Vancomycin/Sodium Chloride 250 ml @ 125 mls/hr Q12H IVPB Last administered on 09/20/18 02:22; Admin Dose 125 MLS/HR; Start 09/17/18 at 03:00 Acetaminophen (Tylenol Tab) 650 mg Q6H PRN PO MILD PAIN(1-3)OR ELEVATED TEMP Last administered on 09/17/18 20:44; Admin Dose 650 MG; Start 09/17/18 at 17:00 Vancomycin HCl (Vanco Iv Per Pharmacy) VANCOMYCIN PER PHARMACY PER PROTOCOL XX ; Start 09/17/18 at 17:00 Levofloxacin/ Dextrose 100 ml @ 100 mls/hr Q24H IVPB Last administered on 09/19/18 16:59; Admin Dose 100 MLS/HR; Start 09/17/18 at 17:30 Metronidazole 100 ml @ 100 mls/hr Q8 IVPB Last administered on 09/20/18 05:43; Admin Dose 100 MLS/HR; Start 09/17/18 at 22:00 Aztreonam 2 gm/ Sodium Chloride 100 ml @ 100 mls/hr Q12 IVPB Last administered on 09/19/18 20:45; Admin Dose 100 MLS/HR; Start 09/17/18 at 21:00 Enoxaparin Sodium (Lovenox) 40 mg DAILY SC ; Start 09/19/18 at 09:00 Magnesium Oxide (Mag-Ox 400) 400 mg DAILY PO Last administered on 09/19/18at 10:41; Admin Dose 400 MG; Start 09/19/18 at 10:00 ERIN MONTOYA MD Sep 20, 2018 08:29
[2018-09-20] MEDS: NIFEdipine (XL) 30 MG TAB PO SCH (09:00)
[2018-09-20] MEDS: CALCITRIOL 0.25 MCG CAP PO SCH (09:30)
[2018-09-20] MEDS ORDERED: DILTIAZEM 25 MG INJ IV ONE ×2 (09:30→11:00)
[2018-09-20] MEDS: MULTIVIT/CA CARB/B CMPLX/FA TAB PO SCH (09:30)
[2018-09-20] MEDS: TACROLIMUS 1 MG CAP PO SCH ×2 (09:32→20:45)
[2018-09-20] MEDS: FOLIC ACID 1 MG TAB PO SCH (09:32)
[2018-09-20] MEDS: LABETALOL 100 MG TAB PO SCH (09:32)
--- NOTE | 2018-09-20 09:35 | CONS ---
Assessment/Plan Assessment/Plan Hospital Course (Demo Recall) - sepsis due infected left BKA stump - improving - elevated procalcitonin - downward trending - infected left below knee amputation stump, s/p Exploration and washout, debridement and VAC placement left infected below knee amputation stump on 09/19/2018 - h/o draining wound, necrosis and infection of L TMA site. ESR 121 on 09/12/2018. 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 All the infected tissue was removed by L BKA according to Dr. Cortes progress note - h/o gangrene and infection of L foot - hypertension - h/o renal transplant at [facility] in 2006, maintained on tacrolimus - immunocompromised status - expected post-op anemia - transaminitis - improving - hypomagnesemia - repleted - adverse reaction to cefazolin (hives), meropenem (pruritus) Recommendations: - continue IV vancomycin, and aztreonam (09/13/2018-) - continue levofloxacin and metronidazole (09/17/2018-) for now - f/u urine cx (NGTD; UA was neg), blood cultures 09/17/18 (NGTD), wound cx (NGTD), anaerobic cx, fungus cx, and pathology - low threshold to add antifungal if spikes again - trend WBC and fever curve - both improving - serial procalcitonin - awaiting Cardiology consult Management d/w patient, XAVIER Jackson, and with Dr. Bailey Consultation Date/Type/Reason Admit Date/Time September 13, 2018 at 11:48 Initial Consult Date 09/13/18 Type of Consult Infectious Disease Requesting Provider: DOMINIQUE BURGESS NP Date/Time of Note DATE: 09/20/18 TIME: 09:35 24 HR Interval Summary Free Text/Dictation Remains afebrile. Intraop cx shows NGTD. Pt noted in rapid Afib this AM and was given IV Cardizem with no improvement; awaiting to start Cardizem drip per d/w nursing. HR 140-160's on telemetry. Pt denies CP, SOB, abd pain, n/v/d, dysuria. Reports feeling palpitations. Rates LLE pain rating 1/10. Exam/Review of Systems Exam Vitals Vital Signs Date Temp Pulse Resp B/P (MAP) Pulse Ox O2 O2 Flow FiO2 Time Delivery Rate 09/20/18 98.3 114 18 112/70 100 Room Air 07:35 (84) Intake and Output 09/19/18 09/19/18 09/20/18 1515:00 23:00 07:00 IntakeIntake Total 200 ml 200 ml 700 ml OutputOutput Total 210 ml 600 ml BalanceBalance -10 ml 200 ml 100 ml Exam Constitutional: alert, oriented, well developed Psych: no complaints, nl mood/affect Head: normocephalic, atraumatic Eyes: nl conjunctiva, nl lids, nl sclera ENMT: nl external ears & nose, nl nasal mucosa & septum, mucosa pink and moist (no thrush) Neck: supple Respiratory: clear to auscultation, normal air movement (stable on room air, 96% checked now by RN) Cardiovascular: nl pulses, irregular rhythm (tachycardic ~150's per telemetry) Gastrointestinal: soft, non-tender; No distended Genitourinary - Male: other (No Don) Musculoskeletal: other (L BKA wrapped with KATHIE bandage and connected to wound VAC with serosanguinous output) Extremities: normal pulses; No edema 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: nl mental status, nl speech, other (answers simple questions appropriately; follows commands) Skin: nl turgor; No rash or lesions Results Result Diagram: 09/20/1853009/20/1831 Results 24hrs Laboratory Tests Test 09/20/18 05:31 White Blood Count 15.5 H Red Blood Count 2.97 L Hemoglobin 7.9 L Hematocrit 25.7 L Mean Corpuscular Volume 86.5 Mean Corpuscular Hemoglobin 26.6 L Mean Corpuscular Hemoglobin Concent 30.7 L Red Cell Distribution Width 15.9 H Platelet Count 227 Mean Platelet Volume 10.3 Immature Granulocytes % 0.700 H Neutrophils % 83.8 H Lymphocytes % 4.3 L Monocytes % 7.5 Eosinophils % 3.3 Basophils % 0.4 Nucleated Red Blood Cells % 0.0 Immature Granulocytes # 0.110 H Neutrophils # 13.0 H Lymphocytes # 0.7 L Monocytes # 1.2 H Eosinophils # 0.5 Basophils # 0.1 Nucleated Red Blood Cells # 0.0 Sodium Level 140 Potassium Level 3.7 Chloride Level 114 H Carbon Dioxide Level 19 L Anion Gap 7 Blood Urea Nitrogen 17 Creatinine 1.24 Est Glomerular Filtrat Rate mL/min 60 Glucose Level 102 Calcium Level 9.1 Procalcitonin 1.52 H Medications Medication Current Medications Miscellaneous Information (* Miscellaneous Pharmacy Order) DURAMORPH: 0.2 MG SPI... GIVEN NEURAXIAL XX ; Start 09/13/18 at 16:30 IV Flush (NS 3 ml) 3 ml PER PROTOCOL IV ; Start 09/13/18 at 17:00 Acetaminophen (Tylenol Supp) 650 mg Q6H PRN [place] Fever; Start 09/13/18 at 17:00 Ondansetron HCl (Zofran Inj) 4 mg Q4H PRN IV NAUSEA AND/OR VOMITING; Start 09/13/18 at 17:00 Folic Acid (Folic Acid) 1 mg DAILY PO Last administered on 09/20/18 09:32; Admin Dose 1 MG; Start 09/14/18 at 09:00 Labetalol HCl (Normodyne) 100 mg BID PO Last administered on 09/20/18 09:32; Admin Dose 100 MG; Start 09/13/18 at 21:00 Multivit/Ca Carb/ B Cmplx/FA/Prenat (Flor-Elisa) 1 tab DAILY PO Last administered on 09/20/18 09:30; Admin Dose 1 TAB; Start 09/14/18 at 09:00 Nifedipine (Procardia Xl) 30 mg DAILY PO Last administered on 09/19/18 08:43; Admin Dose 30 MG; Start 09/14/18 at 09:00 Sodium Phosphate (Kphos Neutral) 1,000 mg BID PO Last administered on 09/19/18 22:00; Admin Dose 1,000 MG; Start 09/13/18 at 21:00 Hydromorphone HCl (Dilaudid) 1 mg Q4H PRN IV SEVERE PAIN LEVEL 7-10 Last administered on 09/19/18 20:15; Admin Dose 1 MG; Start 09/13/18 at 17:30 Calcitriol (Rocaltrol) 0.5 mcg DAILY PO Last administered on 09/20/18 09:30; Admin Dose 0.5 MCG; Start 09/14/18 at 09:00 Tacrolimus (Prograf) 1 mg BID PO Last administered on 09/20/18 09:32; Admin Dose 1 MG; Start 09/13/18 at 22:00 Leflunomide (Arava) 20 mg DAILY PO Last administered on 09/19/18 08:38; Admin Dose 20 MG; Start 09/14/18 at 09:00 Vancomycin/Sodium Chloride 250 ml @ 125 mls/hr Q12H IVPB Last administered on 09/20/18 02:22; Admin Dose 125 MLS/HR; Start 09/17/18 at 03:00 Acetaminophen (Tylenol Tab) 650 mg Q6H PRN PO MILD PAIN(1-3)OR ELEVATED TEMP Last administered on 09/17/18 20:44; Admin Dose 650 MG; Start 09/17/18 at 17:00 Vancomycin HCl (Vanco Iv Per Pharmacy) VANCOMYCIN PER PHARMACY PER PROTOCOL XX ; Start 09/17/18 at 17:00 Levofloxacin/ Dextrose 100 ml @ 100 mls/hr Q24H IVPB Last administered on 09/19/18 16:59; Admin Dose 100 MLS/HR; Start 09/17/18 at 17:30 Metronidazole 100 ml @ 100 mls/hr Q8 IVPB Last administered on 09/20/18 05:43; Admin Dose 100 MLS/HR; Start 09/17/18 at 22:00 Aztreonam 2 gm/ Sodium Chloride 100 ml @ 100 mls/hr Q12 IVPB Last administered on 09/19/18 20:45; Admin Dose 100 MLS/HR; Start 09/17/18 at 21:00 Enoxaparin Sodium (Lovenox) 40 mg DAILY SC ; Start 09/19/18 at 09:00 Magnesium Oxide (Mag-Ox 400) 400 mg DAILY PO Last administered on 09/19/18at 10:41; Admin Dose 400 MG; Start 09/19/18 at 10:00 Diltiazem HCl 125 ml @ 5 mls/hr Q24H IV ; Start 09/20/18 at 10:00 ROSALBA MARTI NP Sep 20, 2018 09:35
[2018-09-20] MEDS: ENOXAPARIN 40 MG/0.4 ML SYG SC SCH (09:42)
[2018-09-20] MEDS: MAGNESIUM OXIDE 400 MG TAB PO SCH (09:56)
[2018-09-20] MEDS ORDERED: DILTIAZEM-D5W 125MG/125ML DRIP 125 ML IV SCH (10:00)
[2018-09-20] MEDS ORDERED: MAGNESIUM SULFATE 2 GM/50 ML 50 ML IVPB ONE (10:30)
[2018-09-20] MEDS ORDERED: ADENOSINE 6 MG INJ IV ONE ×2 (10:30)
[2018-09-20] MEDS ORDERED: AMIODARONE 900 MG in DEXTROSE 5% 482 ML IV SCH ×2 (11:00→11:30)
[2018-09-20] MEDS ORDERED: LIDOCAINE 1% (MPF) 5 ML VIAL SC ONE (11:00)
[2018-09-20] MEDS ORDERED: AMIODARONE 150MG/D5W BOLUS 100 ML IV ONE (11:00)
--- NOTE | 2018-09-20 11:05 | CONS ---
Assessment/Plan Assessment/Plan Hospital Course (Demo Recall) New onset atrial fibrillation with RVR: No history. Rates uncontrolled. No symptoms. Unknown EF. CHADSVASC 2 for HTN and PAD so should be anticoagulated but with downtrending hgb (7.9) and postop, will need to discuss with surgery first s/p BKA 09/13/18 Sepsis due to above Severe PAD HTN Renal transplantation 2006 -diltiazem 20mg IV x 1 -if responsive, start diltiazem 60mg q6h. Consolidate to single dose tomorrow if effective -start amiodarone in the interim -if ok with surgery, anticoagulate with Eliquis or Xarelto -check echo when HR better controlled Consultation Date/Type/Reason Admit Date/Time September 13, 2018 at 11:48 Date of Consultation: Sep 20, 2018 Type of Consult Cardiology Reason for Consultation Afib with RVR Requesting Provider: VANESA AVILES Date/Time of Note DATE: 09/20/18 TIME: 10:56 Hx of Present Illness 58 yo M with a h/o renal transplantation 2006, severe PAD s/p left TMA with in fected stump s/p BKA 09/13/18, HTN, who has been hospitalized for treatment of sepsis and infected stump. This am he had sudden onset tachycardia and was found to have afib with RVR. Adenosine was given without effect. So far also received one dose of diltiazem IV 10mg. He remains tachycardic but besides feeling his heart beating faster, he remains without chest pain or SOB. Per pt no h/o CAD/WI/afib/stroke. He has had recurrent fevers as of yesterday and procalcitonin remains elevated but no fevers today. Hgb trending down at 7.9 today but no active bleeding. No current complaints. per hPI Past Medical History per HPI Home Meds Reported Medications Calcitriol* (Calcitriol*) 0.5 Mcg Capsule, 0.5 MCG PO TID, CAP 09/13/18 Leflunomide* (Leflunomide*) 20 Mg Tablet, 20 MG PO BID, #30 TAB 09/13/18 Tacrolimus* (Tacrolimus*) 1 Mg Capsule, 1 MG PO TID, CAP 09/13/18 Multivit/Ca Carb/B Cmplx/Fa* (Flor-Elisa*) 1 Tab Tab, 1 TAB PO DAILY, TAB 09/13/18 Phosphorus #1 (Phospha 250 Neutral Tablet) 250 Mg Tablet, 1000 MG PO BID, TAB 09/13/18 Iron Polysaccharides Complex (Ferrex 150) 150 Mg Capsule, 150 MG PO BID, #30 CAP 09/13/18 Nifedipine* (Nifedipine ER*) 30 Mg Tablet.sa, 30 MG PO DAILY, TAB.SA 09/13/18 Leflunomide* (Arava*) 20 Mg Tablet, 20 MG PO BID, TAB 09/13/18 Pravastatin Sodium* (Pravastatin Sodium*) 20 Mg Tablet, 20 MG PO HS, TAB 09/13/18 Clopidogrel Bisulfate (Clopidogrel) 75 Mg Tablet, 75 MG PO DAILY, #30 TAB 09/13/18 Folic Acid* (Folic Acid*) 1 Mg Tablet, 1 MG PO DAILY, TAB 09/13/18 Labetalol Hcl* (Labetalol Hcl*) 100 Mg Tablet, 100 MG PO BID, TAB 09/13/18 Discontinued Reported Medications Pravastatin Sodium* (Pravastatin Sodium*) 10 Mg Tablet, 5 MG PO HS, TAB 09/13/18 Medications Current Medications Miscellaneous Information (* Miscellaneous Pharmacy Order) DURAMORPH: 0.2 MG SPI... GIVEN NEURAXIAL XX ; Start 09/13/18 at 16:30 IV Flush (NS 3 ml) 3 ml PER PROTOCOL IV ; Start 09/13/18 at 17:00 Acetaminophen (Tylenol Supp) 650 mg Q6H PRN MT Fever; Start 09/13/18 at 17:00 Ondansetron HCl (Zofran Inj) 4 mg Q4H PRN IV NAUSEA AND/OR VOMITING; Start 09/13/18 at 17:00 Folic Acid (Folic Acid) 1 mg DAILY PO Last administered on 09/20/18at 09:32; Admin Dose 1 MG; Start 09/14/18 at 09:00 Labetalol HCl (Normodyne) 100 mg BID PO Last administered on 09/20/18at 09:32; Admin Dose 100 MG; Start 09/13/18 at 21:00 Multivit/Ca Carb/ B Cmplx/FA/Prenat (Flor-Elisa) 1 tab DAILY PO Last administered on 09/20/18at 09:30; Admin Dose 1 TAB; Start 09/14/18 at 09:00 Nifedipine (Procardia Xl) 30 mg DAILY PO Last administered on 09/19/18 08:43; Admin Dose 30 MG; Start 09/14/18 at 09:00 Sodium Phosphate (Kphos Neutral) 1,000 mg BID PO Last administered on 09/19/18 22:00; Admin Dose 1,000 MG; Start 09/13/18 at 21:00 Hydromorphone HCl (Dilaudid) 1 mg Q4H PRN IV SEVERE PAIN LEVEL 7-10 Last administered on 09/19/18 20:15; Admin Dose 1 MG; Start 09/13/18 at 17:30 Calcitriol (Rocaltrol) 0.5 mcg DAILY PO Last administered on 09/20/18 09:30; Admin Dose 0.5 MCG; Start 09/14/18 at 09:00 Tacrolimus (Prograf) 1 mg BID PO Last administered on 09/20/18 09:32; Admin Dose 1 MG; Start 09/13/18 at 22:00 Leflunomide (Arava) 20 mg DAILY PO Last administered on 09/19/18 08:38; Admin Dose 20 MG; Start 09/14/18 at 09:00 Vancomycin/Sodium Chloride 250 ml @ 125 mls/hr Q12H IVPB Last administered on 09/20/18 02:22; Admin Dose 125 MLS/HR; Start 09/17/18 at 03:00 Acetaminophen (Tylenol Tab) 650 mg Q6H PRN PO MILD PAIN(1-3)OR ELEVATED TEMP Last administered on 09/17/18 20:44; Admin Dose 650 MG; Start 09/17/18 at 17:00 Vancomycin HCl (Vanco Iv Per Pharmacy) VANCOMYCIN PER PHARMACY PER PROTOCOL XX ; Start 09/17/18 at 17:00 Levofloxacin/ Dextrose 100 ml @ 100 mls/hr Q24H IVPB Last administered on 09/19/18 16:59; Admin Dose 100 MLS/HR; Start 09/17/18 at 17:30 Metronidazole 100 ml @ 100 mls/hr Q8 IVPB Last administered on 09/20/18 05:43; Admin Dose 100 MLS/HR; Start 09/17/18 at 22:00 Aztreonam 2 gm/ Sodium Chloride 100 ml @ 100 mls/hr Q12 IVPB Last administered on 09/19/18at 20:45; Admin Dose 100 MLS/HR; Start 09/17/18 at 21:00 Enoxaparin Sodium (Lovenox) 40 mg DAILY SC Last administered on 09/20/18at 09:42; Admin Dose 40 MG; Start 09/19/18 at 09:00 Magnesium Oxide (Mag-Ox 400) 400 mg DAILY PO Last administered on 09/20/18at 09:56; Admin Dose 400 MG; Start 09/19/18 at 10:00 Diltiazem HCl 125 ml @ 5 mls/hr Q24H IV Last administered on 09/20/18at 09:57; Admin Dose 5 MLS/HR; Start 09/20/18 at 10:00 Magnesium Sulfate 50 ml @ 25 mls/hr ONCE ONCE IVPB ; Start 09/20/18 at 10:30; Stop 09/20/18 at 12:29 Lidocaine (Xylocaine 1% (Mpf)) 5 ml ONCE ONCE SC ; Start 09/20/18 at 11:00; Stop 09/20/18 at 11:01 Amiodarone HCl 100 ml @ 600 mls/hr ONCE ONCE IV ; Start 09/20/18 at 11:00; Stop 09/20/18 at 11:09; Status UNV Amiodarone HCl 900 mg/Dextrose 500 ml @ 0 mls/hr Q0M IV ; Start 09/20/18 at 11:00; Status UNV Diltiazem HCl (Cardizem Iv) 20 mg ONCE ONCE IV ; Start 09/20/18 at 11:00; Stop 09/20/18 at 11:01; Status UNV Allergies: Coded Allergies: cefazolin (Verified Allergy, Intermediate, HIVES, 09/14/18) meropenem (Verified Allergy, Intermediate, 09/14/18) pruritus (observed on 09/13/2018) Past Surgical History Past Surgical Hx: other (s/p renal transplant) Exam/Review of Systems Vital Signs Vitals Vital Signs Date Temp Pulse Resp B/P (MAP) Pulse Ox O2 O2 Flow FiO2 Time Delivery Rate 09/20/18 98.3 114 18 112/70 100 Room Air 07:35 (84) Intake and Output 09/19/18 09/19/18 09/20/18 1515:00 23:00 07:00 IntakeIntake Total 200 ml 200 ml 700 ml OutputOutput Total 210 ml 600 ml BalanceBalance -10 ml 200 ml 100 ml Exam Constitutional: alert, oriented Psych: no complaints, nl mood/affect Neck: No jvd Respiratory: clear to auscultation Cardiovascular: No regular rate and rhythm (tachycardic,irregular), No edema, No systolic murmur Gastrointestinal: soft, non-tender; No distended 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: nl mental status, nl speech Labs Result Diagram: 09/20/18 0531 09/20/18 0531 Results 24hrs Laboratory Tests Test 09/20/18 05:31 White Blood Count 15.5 H Red Blood Count 2.97 L Hemoglobin 7.9 L Hematocrit 25.7 L Mean Corpuscular Volume 86.5 Mean Corpuscular Hemoglobin 26.6 L Mean Corpuscular Hemoglobin Concent 30.7 L Red Cell Distribution Width 15.9 H Platelet Count 227 Mean Platelet Volume 10.3 Immature Granulocytes % 0.700 H Neutrophils % 83.8 H Lymphocytes % 4.3 L Monocytes % 7.5 Eosinophils % 3.3 Basophils % 0.4 Nucleated Red Blood Cells % 0.0 Immature Granulocytes # 0.110 H Neutrophils # 13.0 H Lymphocytes # 0.7 L Monocytes # 1.2 H Eosinophils # 0.5 Basophils # 0.1 Nucleated Red Blood Cells # 0.0 Sodium Level 140 Potassium Level 3.7 Chloride Level 114 H Carbon Dioxide Level 19 L Anion Gap 7 Blood Urea Nitrogen 17 Creatinine 1.24 Est Glomerular Filtrat Rate mL/min 60 Glucose Level 102 Calcium Level 9.1 Procalcitonin 1.52 H Medications Medications Current Medications Miscellaneous Information (* Miscellaneous Pharmacy Order) DURAMORPH: 0.2 MG SPI... GIVEN NEURAXIAL XX ; Start 09/13/18 at 16:30 IV Flush (NS 3 ml) 3 ml PER PROTOCOL IV ; Start 09/13/18 at 17:00 Acetaminophen (Tylenol Supp) 650 mg Q6H PRN MT Fever; Start 09/13/18 at 17:00 Ondansetron HCl (Zofran Inj) 4 mg Q4H PRN IV NAUSEA AND/OR VOMITING; Start 09/13/18 at 17:00 Folic Acid (Folic Acid) 1 mg DAILY PO Last administered on 09/20/18at 09:32; Admin Dose 1 MG; Start 09/14/18 at 09:00 Labetalol HCl (Normodyne) 100 mg BID PO Last administered on 09/20/18 09:32; Admin Dose 100 MG; Start 09/13/18 at 21:00 Multivit/Ca Carb/ B Cmplx/FA/Prenat (Flor-Elisa) 1 tab DAILY PO Last administered on 09/20/18 09:30; Admin Dose 1 TAB; Start 09/14/18 at 09:00 Nifedipine (Procardia Xl) 30 mg DAILY PO Last administered on 09/19/18 08:43; Admin Dose 30 MG; Start 09/14/18 at 09:00 Sodium Phosphate (Kphos Neutral) 1,000 mg BID PO Last administered on 09/19/18 22:00; Admin Dose 1,000 MG; Start 09/13/18 at 21:00 Hydromorphone HCl (Dilaudid) 1 mg Q4H PRN IV SEVERE PAIN LEVEL 7-10 Last administered on 09/19/18 20:15; Admin Dose 1 MG; Start 09/13/18 at 17:30 Calcitriol (Rocaltrol) 0.5 mcg DAILY PO Last administered on 09/20/18 09:30; Admin Dose 0.5 MCG; Start 09/14/18 at 09:00 Tacrolimus (Prograf) 1 mg BID PO Last administered on 09/20/18 09:32; Admin Dose 1 MG; Start 09/13/18 at 22:00 Leflunomide (Arava) 20 mg DAILY PO Last administered on 09/19/18 08:38; Admin Dose 20 MG; Start 09/14/18 at 09:00 Vancomycin/Sodium Chloride 250 ml @ 125 mls/hr Q12H IVPB Last administered on 09/20/18 02:22; Admin Dose 125 MLS/HR; Start 09/17/18 at 03:00 Acetaminophen (Tylenol Tab) 650 mg Q6H PRN PO MILD PAIN(1-3)OR ELEVATED TEMP Last administered on 09/17/18 20:44; Admin Dose 650 MG; Start 09/17/18 at 17:00 Vancomycin HCl (Vanco Iv Per Pharmacy) VANCOMYCIN PER PHARMACY PER PROTOCOL XX ; Start 09/17/18 at 17:00 Levofloxacin/ Dextrose 100 ml @ 100 mls/hr Q24H IVPB Last administered on 09/19/18at 16:59; Admin Dose 100 MLS/HR; Start 09/17/18 at 17:30 Metronidazole 100 ml @ 100 mls/hr Q8 IVPB Last administered on 09/20/18at 05:43; Admin Dose 100 MLS/HR; Start 09/17/18 at 22:00 Aztreonam 2 gm/ Sodium Chloride 100 ml @ 100 mls/hr Q12 IVPB Last administered on 09/19/18at 20:45; Admin Dose 100 MLS/HR; Start 09/17/18 at 21:00 Enoxaparin Sodium (Lovenox) 40 mg DAILY SC Last administered on 09/20/18at 09:42; Admin Dose 40 MG; Start 09/19/18 at 09:00 Magnesium Oxide (Mag-Ox 400) 400 mg DAILY PO Last administered on 09/20/18at 09:56; Admin Dose 400 MG; Start 09/19/18 at 10:00 Diltiazem HCl 125 ml @ 5 mls/hr Q24H IV Last administered on 09/20/18at 09:57; Admin Dose 5 MLS/HR; Start 09/20/18 at 10:00 Magnesium Sulfate 50 ml @ 25 mls/hr ONCE ONCE IVPB ; Start 09/20/18 at 10:30; Stop 09/20/18 at 12:29 Lidocaine (Xylocaine 1% (Mpf)) 5 ml ONCE ONCE SC ; Start 09/20/18 at 11:00; Stop 09/20/18 at 11:01 Amiodarone HCl 100 ml @ 600 mls/hr ONCE ONCE IV ; Start 09/20/18 at 11:00; Stop 09/20/18 at 11:09; Status UNV Amiodarone HCl 900 mg/Dextrose 500 ml @ 0 mls/hr Q0M IV ; Start 09/20/18 at 11:00; Status UNV Diltiazem HCl (Cardizem Iv) 20 mg ONCE ONCE IV ; Start 09/20/18 at 11:00; Stop 09/20/18 at 11:01; Status UNV YOLI HOROWITZ Sep 20, 2018 11:05
[2018-09-20] MEDS: AZTREONAM 2 GM in SOD CHLORIDE 0.9% 100 ML IVPB SCH ×2 (12:34→20:44)
--- NOTE | 2018-09-20 13:46 | PN ---
Date/Time of Note Date/Time of Note DATE: 09/20/18 TIME: 13:33 Assessment/Plan Lines/Catheters IV Catheter Type (from Nrsg): Saline Lock Don in Place (from Nrsg): No Assessment/Plan Assessment/Plan L BKA stump infection - necrotizing, s/p debridement and washout yesterday with VAC - VAC change 3x / week - will reconstruct BKA or proceed with AKA when infection is fully controlled - cultures pending - Antibiotics per ID Subjective 24 Hr Interval Summary No pain. Eating well. Now in AFib, Dr. Cummings is seeing him. No CP / SOB. Exam/Review of Systems Vital Signs Vitals Vital Signs Date Temp Pulse Resp B/P (MAP) Pulse Ox O2 O2 Flow FiO2 Time Delivery Rate 09/20/18 98.4 150 20 118/71 96 Room Air 11:09 (87) Intake and Output 09/19/18 09/19/18 09/20/18 1515:00 23:00 07:00 IntakeIntake Total 200 ml 200 ml 700 ml OutputOutput Total 210 ml 600 ml BalanceBalance -10 ml 200 ml 100 ml Exam Free Text/Dictation L BKA stump left open with VAC - good seal, minimal serosanguinous drainage, flap looks OK Results Result Diagram: 09/20/18 0531 09/20/18 0531 AMARILIS RIBERA MD Sep 20, 2018 13:45
[2018-09-20] MEDS: LEFLUNOMIDE 20 MG TAB PO SCH (14:42)
[2018-09-20] MEDS: DILTIAZEM 60 MG TAB PO SCH ×3 (14:43→20:45)
--- NOTE | 2018-09-20 14:56 | PN ---
Date/Time of Note Date/Time of Note DATE: 09/20/18 TIME: 14:54 Assessment/Plan VTE Prophylaxis Risk score (from Nsg)>0 risk: 3 Pharmacological prophylaxis: LMWH Lines/Catheters IV Catheter Type (from Nrsg): Saline Lock Urinary Cath still in place: No Assessment/Plan Hospital Course 58-year-old male with comorbidities include hypertension, end-stage renal disease status post renal transplant, peripheral vascular disease, and right foot wound status post a TMA in the recent past with a stump infection that was non-salvageable who underwent an urgent left below-knee amputation on 09/13/2018. 1. Severe left peripheral artery disease with infected left TMA stump. -Status post urgent left below-knee amputation on 09/13/2018, washout done yesterday with vascular -Antibiotics as per ID. 2. Hypotension status post surgical procedure-resolved -Etiology could be secondary to the multiple antihypertensives that he received in the operating room. 3. Sepsis with leukocytosis, febrile illness, and lactic acidosis secondary to lower extremity infection -Likely from residual infection -Pancultures have been sent, cultures currently negative -Antibiotics as per infectious diseases. 4. Hypertension (history). -Continue antihypertensives 5. SVT secondary to A. fib with RVR -Onset was this morning, patient status post Cardizem and adenosine with no resolution -Continue Cardizem drip -Cardiology consultation appreciated 6. Peripheral vascular disease. -Continue statins -Hold antiplatelets because of recent surgery. 7. History of renal transplant. -Continue immunosuppressants. -Nephrology following. 8. Normocytic anemia. -Etiology could be multifactorial. -Continue iron supplements. 9. Dyslipidemia. -Continue statins. DVT prophylaxis. -Lovenox DC plan: -Continue antimicrobials as per ID as patient is still septic -Replete electrolytes. -PT evaluation. 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 term placement Result Diagram: 09/20/18 0531 09/20/18 0531 Results 24hrs Laboratory Tests Test 09/20/18 05:31 White Blood Count 15.5 H Red Blood Count 2.97 L Hemoglobin 7.9 L Hematocrit 25.7 L Mean Corpuscular Volume 86.5 Mean Corpuscular Hemoglobin 26.6 L Mean Corpuscular Hemoglobin Concent 30.7 L Red Cell Distribution Width 15.9 H Platelet Count 227 Mean Platelet Volume 10.3 Immature Granulocytes % 0.700 H Neutrophils % 83.8 H Lymphocytes % 4.3 L Monocytes % 7.5 Eosinophils % 3.3 Basophils % 0.4 Nucleated Red Blood Cells % 0.0 Immature Granulocytes # 0.110 H Neutrophils # 13.0 H Lymphocytes # 0.7 L Monocytes # 1.2 H Eosinophils # 0.5 Basophils # 0.1 Nucleated Red Blood Cells # 0.0 Sodium Level 140 Potassium Level 3.7 Chloride Level 114 H Carbon Dioxide Level 19 L Anion Gap 7 Blood Urea Nitrogen 17 Creatinine 1.24 Est Glomerular Filtrat Rate mL/min 60 Glucose Level 102 Calcium Level 9.1 Procalcitonin 1.52 H Subjective 24 Hr Interval Summary Constitutional: no complaints Exam/Review of Systems Exam Vitals Vital Signs Date Temp Pulse Resp B/P (MAP) Pulse Ox O2 O2 Flow FiO2 Time Delivery Rate 09/20/18 98.4 150 20 118/71 96 Room Air 11:09 (87) Intake and Output 09/19/18 09/19/18 09/20/18 1515:00 23:00 07:00 IntakeIntake Total 200 ml 200 ml 700 ml OutputOutput Total 210 ml 600 ml BalanceBalance -10 ml 200 ml 100 ml Constitutional: alert Respiratory: clear to auscultation Cardiovascular: regular rate and rhythm Gastrointestinal: soft; No distended Musculoskeletal: nl extremities to inspection Results Results 24hrs Laboratory Tests Test 09/20/18 05:31 White Blood Count 15.5 H Red Blood Count 2.97 L Hemoglobin 7.9 L Hematocrit 25.7 L Mean Corpuscular Volume 86.5 Mean Corpuscular Hemoglobin 26.6 L Mean Corpuscular Hemoglobin Concent 30.7 L Red Cell Distribution Width 15.9 H Platelet Count 227 Mean Platelet Volume 10.3 Immature Granulocytes % 0.700 H Neutrophils % 83.8 H Lymphocytes % 4.3 L Monocytes % 7.5 Eosinophils % 3.3 Basophils % 0.4 Nucleated Red Blood Cells % 0.0 Immature Granulocytes # 0.110 H Neutrophils # 13.0 H Lymphocytes # 0.7 L Monocytes # 1.2 H Eosinophils # 0.5 Basophils # 0.1 Nucleated Red Blood Cells # 0.0 Sodium Level 140 Potassium Level 3.7 Chloride Level 114 H Carbon Dioxide Level 19 L Anion Gap 7 Blood Urea Nitrogen 17 Creatinine 1.24 Est Glomerular Filtrat Rate mL/min 60 Glucose Level 102 Calcium Level 9.1 Procalcitonin 1.52 H Medications Medication Current Medications Miscellaneous Information (* Miscellaneous Pharmacy Order) DURAMORPH: 0.2 MG SPI... GIVEN NEURAXIAL XX ; Start 09/13/18 at 16:30 IV Flush (NS 3 ml) 3 ml PER PROTOCOL IV ; Start 09/13/18 at 17:00 Acetaminophen (Tylenol Supp) 650 mg Q6H PRN [place] Fever; Start 09/13/18 at 17:00 Ondansetron HCl (Zofran Inj) 4 mg Q4H PRN IV NAUSEA AND/OR VOMITING; Start 09/13/18 at 17:00 Folic Acid (Folic Acid) 1 mg DAILY PO Last administered on 09/20/18 09:32; Admin Dose 1 MG; Start 09/14/18 at 09:00 Multivit/Ca Carb/ B Cmplx/FA/Prenat (Flor-Elisa) 1 tab DAILY PO Last administered on 09/20/18 09:30; Admin Dose 1 TAB; Start 09/14/18 at 09:00 Sodium Phosphate (Kphos Neutral) 1,000 mg BID PO Last administered on 09/19/18 22:00; Admin Dose 1,000 MG; Start 09/13/18 at 21:00 Hydromorphone HCl (Dilaudid) 1 mg Q4H PRN IV SEVERE PAIN LEVEL 7-10 Last administered on 09/19/18 20:15; Admin Dose 1 MG; Start 09/13/18 at 17:30 Calcitriol (Rocaltrol) 0.5 mcg DAILY PO Last administered on 09/20/18 09:30; Admin Dose 0.5 MCG; Start 09/14/18 at 09:00 Tacrolimus (Prograf) 1 mg BID PO Last administered on 09/20/18 09:32; Admin Dose 1 MG; Start 09/13/18 at 22:00 Leflunomide (Arava) 20 mg DAILY PO Last administered on 09/20/18 14:42; Admin Dose 20 MG; Start 09/14/18 at 09:00 Vancomycin/Sodium Chloride 250 ml @ 125 mls/hr Q12H IVPB Last administered on 09/20/18 02:22; Admin Dose 125 MLS/HR; Start 09/17/18 at 03:00 Acetaminophen (Tylenol Tab) 650 mg Q6H PRN PO MILD PAIN(1-3)OR ELEVATED TEMP Last administered on 09/17/18 20:44; Admin Dose 650 MG; Start 09/17/18 at 17:00 Vancomycin HCl (Vanco Iv Per Pharmacy) VANCOMYCIN PER PHARMACY PER PROTOCOL XX ; Start 09/17/18 at 17:00 Levofloxacin/ Dextrose 100 ml @ 100 mls/hr Q24H IVPB Last administered on 09/19/18 16:59; Admin Dose 100 MLS/HR; Start 09/17/18 at 17:30 Metronidazole 100 ml @ 100 mls/hr Q8 IVPB Last administered on 09/20/18 14:44; Admin Dose 100 MLS/HR; Start 09/17/18 at 22:00 Aztreonam 2 gm/ Sodium Chloride 100 ml @ 100 mls/hr Q12 IVPB Last administered on 09/20/18 12:34; Admin Dose 100 MLS/HR; Start 09/17/18 at 21:00 Enoxaparin Sodium (Lovenox) 40 mg DAILY SC Last administered on 09/20/18 09:42; Admin Dose 40 MG; Start 09/19/18 at 09:00 Magnesium Oxide (Mag-Ox 400) 400 mg DAILY PO Last administered on 09/20/18 09:56; Admin Dose 400 MG; Start 09/19/18 at 10:00 Diltiazem HCl 125 ml @ 5 mls/hr Q24H IV Last administered on 09/20/18 09:57; Admin Dose 5 MLS/HR; Start 09/20/18 at 10:00 Amiodarone HCl 900 mg/Dextrose 500 ml @ 0 mls/hr Q0M IV ; Start 09/20/18 at 11:00 Diltiazem HCl (Cardizem) 60 mg QID PO Last administered on 09/20/18 14:43; Admin Dose 60 MG; Start 09/20/18 at 12:00 VANESA AVILES Sep 20, 2018 14:56
[2018-09-20] MEDS: SOD PHOS MONO/DIBAS 250 MG TAB PO SCH ×2 (16:30→20:45)
[2018-09-20] MEDS: LEVOFLOXACIN 500MG/D5W (PMX) 100 ML IVPB SCH (18:25)
[2018-09-21] VITALS (10 sets, daily range): BP systolic 109–152; BP diastolic 56–70; PULSE 84–121; RESP 18–22
[2018-09-21] MEDS: VANCOMYCIN 750 MG (PMX) 250 ML IVPB SCH ×2 (03:13→15:22)
[2018-09-21] MEDS: metroNIDAZOLE 500 MG/NS (PMX) 100 ML IVPB SCH ×3 (06:05→20:47)
[2018-09-21] MEDS: CALCITRIOL 0.25 MCG CAP PO SCH (08:47)
[2018-09-21] MEDS: MULTIVIT/CA CARB/B CMPLX/FA TAB PO SCH (08:47)
[2018-09-21] MEDS: LEFLUNOMIDE 20 MG TAB PO SCH (08:47)
[2018-09-21] MEDS: TACROLIMUS 1 MG CAP PO SCH ×2 (08:47→20:37)
[2018-09-21] MEDS: MAGNESIUM OXIDE 400 MG TAB PO SCH (08:47)
[2018-09-21] MEDS: FOLIC ACID 1 MG TAB PO SCH (08:48)
[2018-09-21] MEDS: DILTIAZEM 60 MG TAB PO SCH ×4 (08:48→20:36)
[2018-09-21] MEDS: AZTREONAM 2 GM in SOD CHLORIDE 0.9% 100 ML IVPB SCH ×2 (08:52→20:38)
[2018-09-21] MEDS: SOD PHOS MONO/DIBAS 250 MG TAB PO SCH ×2 (09:00→20:35)
[2018-09-21] MEDS: ENOXAPARIN 40 MG/0.4 ML SYG SC SCH (09:02)
--- NOTE | 2018-09-21 10:39 | CONS ---
Assessment/Plan Assessment/Plan Assessment/Plan (Daily) Assessment/Plan Hospital Course (Demo Recall) 1. Kidney transplant status. The patient had a cadaveric kidney transplant in 2006. He is on immunosuppressive therapy. His renal function today is back to normal : Although his serum creatinine is slightly higher than yesterday. 2. 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 His left foot was infected and gangrenous. He now has a L stump that is draining dark bloody purulent material . He underwent surgery yesterday. The left stump wound was opened, drained, debrided and washed out. 3. Hypertension 4. Peripheral artery disease 5. Anemia 6. Hyperlipidemia. 7. hypokalmic k replete f/up labs improved creatinine tho less muscle mass Consultation Date/Type/Reason Admit Date/Time September 13, 2018 at 11:48 Initial Consult Date 09/20/18 Requesting Provider: VANESA AVILES Date/Time of Note DATE: 09/21/18 TIME: 10:36 24 HR Interval Summary Free Text/Dictation feeling good; no sig pain. no chills. may be hallucinating he thinks from the antibiotics. No problem urinating. Constitutional: improved Exam/Review of Systems Exam Vitals Vital Signs Date Temp Pulse Resp B/P (MAP) Pulse Ox O2 O2 Flow FiO2 Time Delivery Rate 09/21/18 97.6 93 22 120/56 96 Room Air 08:39 (77) Intake and Output 09/20/18 09/20/18 09/21/18 1515:00 23:00 07:00 IntakeIntake Total 700 ml 700 ml OutputOutput Total 1200 ml 650 ml BalanceBalance -500 ml 50 ml Constitutional: alert, oriented, well developed Psych: no complaints, nl mood/affect Respiratory: clear to auscultation, normal air movement Cardiovascular: regular rate and rhythm, nl pulses Gastrointestinal: soft, nl liver, spleen, non-tender Results Result Diagram: 09/21/18 0549 09/21/18 0549 Results 24hrs Laboratory Tests Test 09/21/18 02:11 09/21/18 05:49 Vancomycin Level Trough 17.5 White Blood Count 14.0 H Red Blood Count 3.17 L Hemoglobin 8.4 L Hematocrit 26.9 L Mean Corpuscular Volume 84.9 Mean Corpuscular Hemoglobin 26.5 L Mean Corpuscular Hemoglobin Concent 31.2 L Red Cell Distribution Width 15.9 H Platelet Count 262 Mean Platelet Volume 9.7 Immature Granulocytes % 1.000 H Neutrophils % 82.4 H Lymphocytes % 5.1 L Monocytes % 7.1 Eosinophils % 4.0 Basophils % 0.4 Nucleated Red Blood Cells % 0.0 Immature Granulocytes # 0.140 H Neutrophils # 11.5 H Lymphocytes # 0.7 L Monocytes # 1.0 H Eosinophils # 0.6 H Basophils # 0.1 Nucleated Red Blood Cells # 0.0 Sodium Level 143 Potassium Level 3.4 L Chloride Level 115 H Carbon Dioxide Level 20 L Anion Gap 8 Blood Urea Nitrogen 13 Creatinine 0.91 Est Glomerular Filtrat Rate mL/min > 60 Glucose Level 112 Calcium Level 8.8 Magnesium Level 1.8 Total Bilirubin 0.4 Direct Bilirubin 0.00 Indirect Bilirubin 0.4 Aspartate Amino Transf (AST/SGOT) 53 H Alanine Aminotransferase (ALT/SGPT) 53 Alkaline Phosphatase 145 H Total Protein 5.8 L Albumin 2.4 L Globulin 3.40 H Albumin/Globulin Ratio 0.70 Medications Medication Current Medications Miscellaneous Information (* Miscellaneous Pharmacy Order) DURAMORPH: 0.2 MG SPI... GIVEN NEURAXIAL XX ; Start 09/13/18 at 16:30 IV Flush (NS 3 ml) 3 ml PER PROTOCOL IV ; Start 09/13/18 at 17:00 Acetaminophen (Tylenol Supp) 650 mg Q6H PRN [place] Fever; Start 09/13/18 at 17:00 Ondansetron HCl (Zofran Inj) 4 mg Q4H PRN IV NAUSEA AND/OR VOMITING; Start 09/13/18 at 17:00 Folic Acid (Folic Acid) 1 mg DAILY PO Last administered on 09/21/18at 08:48; Admin Dose 1 MG; Start 09/14/18 at 09:00 Multivit/Ca Carb/ B Cmplx/FA/Prenat (Flor-Elisa) 1 tab DAILY PO Last administered on 09/21/18at 08:47; Admin Dose 1 TAB; Start 09/14/18 at 09:00 Sodium Phosphate (Kphos Neutral) 1,000 mg BID PO Last administered on 09/20/18at 20:45; Admin Dose 1,000 MG; Start 09/13/18 at 21:00 Hydromorphone HCl (Dilaudid) 1 mg Q4H PRN IV SEVERE PAIN LEVEL 7-10 Last administered on 09/19/18 20:15; Admin Dose 1 MG; Start 09/13/18 at 17:30 Calcitriol (Rocaltrol) 0.5 mcg DAILY PO Last administered on 09/21/18 08:47; Admin Dose 0.5 MCG; Start 09/14/18 at 09:00 Tacrolimus (Prograf) 1 mg BID PO Last administered on 09/21/18 08:47; Admin Dose 1 MG; Start 09/13/18 at 22:00 Leflunomide (Arava) 20 mg DAILY PO Last administered on 09/21/18 08:47; Admin Dose 20 MG; Start 09/14/18 at 09:00 Vancomycin/Sodium Chloride 250 ml @ 125 mls/hr Q12H IVPB Last administered on 09/21/18 03:13; Admin Dose 125 MLS/HR; Start 09/17/18 at 03:00 Acetaminophen (Tylenol Tab) 650 mg Q6H PRN PO MILD PAIN(1-3)OR ELEVATED TEMP Last administered on 09/17/18 20:44; Admin Dose 650 MG; Start 09/17/18 at 17:00 Vancomycin HCl (Vanco Iv Per Pharmacy) VANCOMYCIN PER PHARMACY PER PROTOCOL XX ; Start 09/17/18 at 17:00 Levofloxacin/ Dextrose 100 ml @ 100 mls/hr Q24H IVPB Last administered on 09/20/18 18:25; Admin Dose 100 MLS/HR; Start 09/17/18 at 17:30 Metronidazole 100 ml @ 100 mls/hr Q8 IVPB Last administered on 09/21/18 06:05; Admin Dose 100 MLS/HR; Start 09/17/18 at 22:00 Aztreonam 2 gm/ Sodium Chloride 100 ml @ 100 mls/hr Q12 IVPB Last administered on 09/21/18 08:52; Admin Dose 100 MLS/HR; Start 09/17/18 at 21:00 Enoxaparin Sodium (Lovenox) 40 mg DAILY SC Last administered on 09/21/18 09:02; Admin Dose 40 MG; Start 09/19/18 at 09:00 Magnesium Oxide (Mag-Ox 400) 400 mg DAILY PO Last administered on 6/8/19at 08:47; Admin Dose 400 MG; Start 09/19/18 at 10:00 Amiodarone HCl 900 mg/Dextrose 500 ml @ 0 mls/hr Q0M IV ; Start 09/20/18 at 11:00 Diltiazem HCl (Cardizem) 60 mg QID PO Last administered on 09/21/18at 08:48; Admin Dose 60 MG; Start 09/20/18 at 12:00 YULIANA HUMPHREYS MD Sep 21, 2018 10:39
--- NOTE | 2018-09-21 15:36 | RADRPT ---
Echocardiogram Report Patient Name: Trace LOZANOtient ID: [id number] : 1960 (58y 1m)Study Date: 09/20/2018 1:25:06 PM Gender: Hemantcession #: [id number] Tech: LE Location: [facility] Ref.Physician: YOLI HOROWITZ Height(Cm): BSA: Weight(Kg): Quality: GoodOrder Physician: YOLI HOROWITZ Account #: Procedures: Echocardiographic Report: Transthoracic echocardiogram with complete 2D, M-Mode, and doppler examination. Indications: Atrial Fibrillation. Measurements: 2D/M Mode Doppler Measurement Value Normal Range Measurement Value Normal Range LVIDd 2D 4.0 [ 4.2 - 5.8 ] cm AV Mean Luis 1.1 [ 70.0 - 90.0 ] cm/sec LVIDs 2D 2.9 [ 2.5 - 4.0 ] cm AV Mean PG 5.0 [ 2.0 - 4.0 ] mmHg LVPWd 2D 1.1 [ 0.6 - 1.0 ] cm AV Peak Luis 1.6 [ 100.0 - 170.0 ] cm/sec IVSd 2D 1.1 [ 0.6 - 1.0 ] cm AV Peak PG 10.0 [ 2.0 - 9.0 ] mmHg EDV 2D 69.6 [ 62.0 - 150.0 ] ml AV VTI 25.4 cm ESV 2D 31.4 [ 21.0 - 61.0 ] ml LVOT Peak Luis 1.0 [ 70.0 - 110.0 ] cm/sec EF 2D 54.9 [ 52.0 - 72.0 ] percent LVOT Peak PG 4.0 [ 2.0 - 6.0 ] mmHg LVOT Diam 2.0 [ 2.3 - 2.9 ] cm MV E Peak Luis 1.1 [ 60.0 - 130.0 ] cm/sec MV A Peak Luis 0.9 [ 100.0 - 120.0 ] cm/sec MV E/A 1.3 [ 0.8 - 1.5 ] ratio MV Decel Time 151 [ 104 - 258 ] msec Lat E` Luis 0.1 [ 10.0 - 15.0 ] cm/sec Lateral E/E` 17.6 [ 1.0 - 2.0 ] ratio Med E` Luis 0.0 cm/sec MV E/A 1.3 [ 0.8 - 1.5 ] ratio TR Peak Luis 2.3 [ 100.0 - 280.0 ] cm/sec TR Peak PG 22.0 mmHg PV Peak Luis 1.0 [ 40.0 - 80.0 ] cm/sec PV Peak PG 4.0 mmHg Findings: Left Ventricle: Normal left ventricular systolic function. Overall, normal left ventricular systolic function. Not all segments visualized. Normal left ventricular wall thickness. Ejection fraction is visually estimated at 60 %. Right Ventricle: Normal right ventricular size. Normal right ventricular systolic function. Left Atrium: The left atrium is normal in size. Right Atrium: The right atrium is normal in size. Mitral Valve: Normal appearance of the mitral valve. Mild mitral annular calcification. Trace mitral regurgitation. Aortic Valve: Normal appearance of the aortic valve. No significant aortic stenosis or insufficiency. Tricuspid Valve: Normal appearance of the tricuspid valve. There is trace to mild tricuspid regurgitation. Pulmonic Valve: Normal pulmonic valve appearance. There is trace pulmonic regurgitation. Pericardium: Normal pericardium with no significant pericardial effusion. Aorta: Upper limit in size aortic root. Ascending aorta is mildly dilated. IVC: The IVC is not well visualized. Conclusions: Normal left ventricular systolic function. Overall, normal left ventricular systolic function. Not all segments visualized. Normal left ventricular wall thickness. Ejection fraction is visually estimated at 60 %. Electronically Signed By: Odin Lockhart 2018-09-21 15:35:33 PDT
--- NOTE | 2018-09-21 15:47 | CONS ---
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 ESR 121 on 09/12/2018. 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 All the infected tissue was removed by L BKA according to Dr. Cortes progress note - h/o gangrene and infection of L foot - hypertension - h/o renal transplant at [facility] in 2006, maintained on tacrolimus - immunocompromised status - expected post-op anemia - transaminitis - improving - hypomagnesemia - repleted - adverse reaction to cefazolin (hives), meropenem (pruritus) Recommendations: - DC IV vancomycin - continue aztreonam (09/13/2018-), levofloxacin (09/17/2018-), and metronidazole (09/17/2018-) for now - f/u blood cultures 09/17/18 (NGTD), wound cx (GNR), anaerobic cx, fungus cx - trend WBC and fever curve - both improving - ordered AM CBC and procalcitonin - Dr. Cortes planning reconstruction of BKA or proceed with AKA when infection is fully controlled Management d/w patient, XAVIER Richardson, and with Dr. Bailey Consultation Date/Type/Reason Admit Date/Time September 13, 2018 at 11:48 Initial Consult Date 09/13/18 Type of Consult Infectious Disease Requesting Provider: VANESA AVILES Date/Time of Note DATE: 09/21/18 TIME: 15:39 24 HR Interval Summary Free Text/Dictation Wound cx growing GNR. Remains afebrile and WBC is slowly trending down. Pt with hallucinations per d/w nursing. Remains in Afib with improved HR. Pt c/o mild LLE stump pain. Denies CP, SOB, abd pain, n/v/d, dysuria. Exam/Review of Systems Exam Vitals Vital Signs Date Temp Pulse Resp B/P (MAP) Pulse Ox O2 O2 Flow FiO2 Time Delivery Rate 09/21/18 98.0 121 22 129/58 96 Room Air 15:19 (81) Intake and Output 09/20/18 09/20/18 09/21/18 1515:00 23:00 07:00 IntakeIntake Total 700 ml 700 ml OutputOutput Total 1200 ml 650 ml BalanceBalance -500 ml 50 ml Exam Constitutional: alert, oriented, well developed Psych: other (yelled out with eyes closed while I was in the room) Head: normocephalic, atraumatic Eyes: nl conjunctiva, nl lids, nl sclera ENMT: nl external ears & nose, nl nasal mucosa & septum, mucosa pink and moist (no thrush) Neck: supple Respiratory: clear to auscultation, normal air movement (stable on room air) Cardiovascular: nl pulses, irregular rhythm (tachycardic ~110's on telemetry) Gastrointestinal: soft, non-tender; No distended Genitourinary - Male: other (No Don) Musculoskeletal: other (L BKA wrapped with KATHIE bandage and connected to wound VAC with serosanguinous output) Extremities: normal pulses; No edema 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: nl mental status, nl speech, other (answers simple questions appropriately; follows commands) Skin: nl turgor; No rash or lesions Results Result Diagram: 09/21/1849 09/21/1849 Results 24hrs Necrotic calf muscle pathology 09/19/2018: Necrotic calf muscle, debridement: -- Skeletal muscle and soft tissue showing necrosis, acute and chronic inflammation. -- Multiple foci of skeletal muscle showing degenerative changes with fibrosis and associated chronic inflammation. -- Severe medial calcification of arteries and veins. -- No evidence of malignancy. Laboratory Tests Test 09/21/18 02:11 09/21/18 05:49 Vancomycin Level Trough 17.5 White Blood Count 14.0 H Red Blood Count 3.17 L Hemoglobin 8.4 L Hematocrit 26.9 L Mean Corpuscular Volume 84.9 Mean Corpuscular Hemoglobin 26.5 L Mean Corpuscular Hemoglobin Concent 31.2 L Red Cell Distribution Width 15.9 H Platelet Count 262 Mean Platelet Volume 9.7 Immature Granulocytes % 1.000 H Neutrophils % 82.4 H Lymphocytes % 5.1 L Monocytes % 7.1 Eosinophils % 4.0 Basophils % 0.4 Nucleated Red Blood Cells % 0.0 Immature Granulocytes # 0.140 H Neutrophils # 11.5 H Lymphocytes # 0.7 L Monocytes # 1.0 H Eosinophils # 0.6 H Basophils # 0.1 Nucleated Red Blood Cells # 0.0 Sodium Level 143 Potassium Level 3.4 L Chloride Level 115 H Carbon Dioxide Level 20 L Anion Gap 8 Blood Urea Nitrogen 13 Creatinine 0.91 Est Glomerular Filtrat Rate mL/min > 60 Glucose Level 112 Calcium Level 8.8 Magnesium Level 1.8 Total Bilirubin 0.4 Direct Bilirubin 0.00 Indirect Bilirubin 0.4 Aspartate Amino Transf (AST/SGOT) 53 H Alanine Aminotransferase (ALT/SGPT) 53 Alkaline Phosphatase 145 H Total Protein 5.8 L Albumin 2.4 L Globulin 3.40 H Albumin/Globulin Ratio 0.70 Medications Medication Current Medications Miscellaneous Information (* Miscellaneous Pharmacy Order) DURAMORPH: 0.2 MG SPI... GIVEN NEURAXIAL XX ; Start 09/13/18 at 16:30 IV Flush (NS 3 ml) 3 ml PER PROTOCOL IV ; Start 09/13/18 at 17:00 Acetaminophen (Tylenol Supp) 650 mg Q6H PRN [place] Fever; Start 09/13/18 at 17:00 Ondansetron HCl (Zofran Inj) 4 mg Q4H PRN IV NAUSEA AND/OR VOMITING; Start 09/13/18 at 17:00 Folic Acid (Folic Acid) 1 mg DAILY PO Last administered on 09/21/18 08:48; Admin Dose 1 MG; Start 09/14/18 at 09:00 Multivit/Ca Carb/ B Cmplx/FA/Prenat (Flor-Elisa) 1 tab DAILY PO Last administered on 09/21/18 08:47; Admin Dose 1 TAB; Start 09/14/18 at 09:00 Sodium Phosphate (Kphos Neutral) 1,000 mg BID PO Last administered on 09/20/18 20:45; Admin Dose 1,000 MG; Start 09/13/18 at 21:00 Hydromorphone HCl (Dilaudid) 1 mg Q4H PRN IV SEVERE PAIN LEVEL 7-10 Last administered on 09/19/18 20:15; Admin Dose 1 MG; Start 09/13/18 at 17:30 Calcitriol (Rocaltrol) 0.5 mcg DAILY PO Last administered on 09/21/18 08:47; Ad min Dose 0.5 MCG; Start 09/14/18 at 09:00 Tacrolimus (Prograf) 1 mg BID PO Last administered on 09/21/18 08:47; Admin Dose 1 MG; Start 09/13/18 at 22:00 Leflunomide (Arava) 20 mg DAILY PO Last administered on 09/21/18 08:47; Admin Dose 20 MG; Start 09/14/18 at 09:00 Vancomycin/Sodium Chloride 250 ml @ 125 mls/hr Q12H IVPB Last administered on 09/21/18 15:22; Admin Dose 125 MLS/HR; Start 09/17/18 at 03:00 Acetaminophen (Tylenol Tab) 650 mg Q6H PRN PO MILD PAIN(1-3)OR ELEVATED TEMP Last administered on 09/17/18 20:44; Admin Dose 650 MG; Start 09/17/18 at 17:00 Vancomycin HCl (Vanco Iv Per Pharmacy) VANCOMYCIN PER PHARMACY PER PROTOCOL XX ; Start 09/17/18 at 17:00 Levofloxacin/ Dextrose 100 ml @ 100 mls/hr Q24H IVPB Last administered on 09/20/18 18:25; Admin Dose 100 MLS/HR; Start 09/17/18 at 17:30 Metronidazole 100 ml @ 100 mls/hr Q8 IVPB Last administered on 09/21/18 13:50; Admin Dose 100 MLS/HR; Start 09/17/18 at 22:00 Aztreonam 2 gm/ Sodium Chloride 100 ml @ 100 mls/hr Q12 IVPB Last administered on 09/21/18 08:52; Admin Dose 100 MLS/HR; Start 09/17/18 at 21:00 Enoxaparin Sodium (Lovenox) 40 mg DAILY SC Last administered on 09/21/18 09:02; Admin Dose 40 MG; Start 09/19/18 at 09:00 Magnesium Oxide (Mag-Ox 400) 400 mg DAILY PO Last administered on 09/21/18 08:47; Admin Dose 400 MG; Start 09/19/18 at 10:00 Amiodarone HCl 900 mg/Dextrose 500 ml @ 0 mls/hr Q0M IV ; Start 09/20/18 at 11:00 Diltiazem HCl (Cardizem) 60 mg QID PO Last administered on 09/21/18 12:47; Admin Dose 60 MG; Start 09/20/18 at 12:00 Potassium Chloride (Klor-Con 10) 10 meq DAILY PO ; Start 09/22/18 at 09:00 ROSALBA MARTI NP Sep 21, 2018 15:47
--- NOTE | 2018-09-21 16:36 | CONS ---
Assessment/Plan Assessment/Plan Hospital Course (Demo Recall) New onset atrial fibrillation with RVR: Reverted to sinus rhythm on amiodarone drip. CHADSVASC 2 for HTN and PAD so should be anticoagulated but with downtrending hgb (7.9) and postop, will need to discuss with surgery first s/p BKA 09/13/18 Sepsis due to above Severe PAD HTN Renal transplantation 2006 -start amiodarone 400mg PO BID -start anticoagulation with Eliquis or Xarelto when able to from surgical perspective -echocardiogram showed normal LVEF 60%, no significant valve disease Consultation Date/Type/Reason Admit Date/Time September 13, 2018 at 11:48 Initial Consult Date 09/20/18 Type of Consult Cardiology Date/Time of Note DATE: 09/21/18 TIME: 16:33 24 HR Interval Summary Free Text/Dictation Reverted to sinus rhythm on amiodarone drip. Echocardiogram reviewed. Detailed Summary Additional Comments 14 point review of systems without changes. Exam/Review of Systems Vital Signs Vitals Vital Signs Date Temp Pulse Resp B/P (MAP) Pulse Ox O2 O2 Flow FiO2 Time Delivery Rate 09/21/18 98.0 121 22 129/58 96 Room Air 15:19 (81) Intake and Output 09/20/18 09/20/18 09/21/18 1515:00 23:00 07:00 IntakeIntake Total 700 ml 700 ml OutputOutput Total 1200 ml 650 ml BalanceBalance -500 ml 50 ml Exam Exam Constitutional: alert, oriented Psych: no complaints, nl mood/affect Neck: No jvd Respiratory: clear to auscultation Cardiovascular: No regular rate and rhythm (tachycardic,irregular), No edema, No systolic murmur Gastrointestinal: soft, non-tender; No distended 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: nl mental status, nl speech Labs Result Diagram: 09/21/18 0549 09/21/18 0549 Results 24hrs Laboratory Tests Test 09/21/18 02:11 09/21/18 05:49 Vancomycin Level Trough 17.5 White Blood Count 14.0 H Red Blood Count 3.17 L Hemoglobin 8.4 L Hematocrit 26.9 L Mean Corpuscular Volume 84.9 Mean Corpuscular Hemoglobin 26.5 L Mean Corpuscular Hemoglobin Concent 31.2 L Red Cell Distribution Width 15.9 H Platelet Count 262 Mean Platelet Volume 9.7 Immature Granulocytes % 1.000 H Neutrophils % 82.4 H Lymphocytes % 5.1 L Monocytes % 7.1 Eosinophils % 4.0 Basophils % 0.4 Nucleated Red Blood Cells % 0.0 Immature Granulocytes # 0.140 H Neutrophils # 11.5 H Lymphocytes # 0.7 L Monocytes # 1.0 H Eosinophils # 0.6 H Basophils # 0.1 Nucleated Red Blood Cells # 0.0 Sodium Level 143 Potassium Level 3.4 L Chloride Level 115 H Carbon Dioxide Level 20 L Anion Gap 8 Blood Urea Nitrogen 13 Creatinine 0.91 Est Glomerular Filtrat Rate mL/min > 60 Glucose Level 112 Calcium Level 8.8 Magnesium Level 1.8 Total Bilirubin 0.4 Direct Bilirubin 0.00 Indirect Bilirubin 0.4 Aspartate Amino Transf (AST/SGOT) 53 H Alanine Aminotransferase (ALT/SGPT) 53 Alkaline Phosphatase 145 H Total Protein 5.8 L Albumin 2.4 L Globulin 3.40 H Albumin/Globulin Ratio 0.70 Medications Medications Current Medications Miscellaneous Information (* Miscellaneous Pharmacy Order) DURAMORPH: 0.2 MG SPI... GIVEN NEURAXIAL XX ; Start 09/13/18 at 16:30 IV Flush (NS 3 ml) 3 ml PER PROTOCOL IV ; Start 09/13/18 at 17:00 Acetaminophen (Tylenol Supp) 650 mg Q6H PRN [place] Fever; Start 09/13/18 at 17:00 Ondansetron HCl (Zofran Inj) 4 mg Q4H PRN IV NAUSEA AND/OR VOMITING; Start 09/13/18 at 17:00 Folic Acid (Folic Acid) 1 mg DAILY PO Last administered on 09/21/18at 08:48; Admin Dose 1 MG; Start 09/14/18 at 09:00 Multivit/Ca Carb/ B Cmplx/FA/Prenat (Flor-Elisa) 1 tab DAILY PO Last adm inistered on 09/21/18at 08:47; Admin Dose 1 TAB; Start 09/14/18 at 09:00 Sodium Phosphate (Kphos Neutral) 1,000 mg BID PO Last administered on 09/20/18at 20:45; Admin Dose 1,000 MG; Start 09/13/18 at 21:00 Hydromorphone HCl (Dilaudid) 1 mg Q4H PRN IV SEVERE PAIN LEVEL 7-10 Last administered on 09/19/18 20:15; Admin Dose 1 MG; Start 09/13/18 at 17:30 Calcitriol (Rocaltrol) 0.5 mcg DAILY PO Last administered on 09/21/18 08:47; Admin Dose 0.5 MCG; Start 09/14/18 at 09:00 Tacrolimus (Prograf) 1 mg BID PO Last administered on 09/21/18 08:47; Admin Dose 1 MG; Start 09/13/18 at 22:00 Leflunomide (Arava) 20 mg DAILY PO Last administered on 09/21/18 08:47; Admin Dose 20 MG; Start 09/14/18 at 09:00 Acetaminophen (Tylenol Tab) 650 mg Q6H PRN PO MILD PAIN(1-3)OR ELEVATED TEMP Last administered on 09/17/18 20:44; Admin Dose 650 MG; Start 09/17/18 at 17:00 Levofloxacin/ Dextrose 100 ml @ 100 mls/hr Q24H IVPB Last administered on 09/20/18 18:25; Admin Dose 100 MLS/HR; Start 09/17/18 at 17:30 Metronidazole 100 ml @ 100 mls/hr Q8 IVPB Last administered on 09/21/18 13:50; Admin Dose 100 MLS/HR; Start 09/17/18 at 22:00 Aztreonam 2 gm/ Sodium Chloride 100 ml @ 100 mls/hr Q12 IVPB Last administered on 09/21/18 08:52; Admin Dose 100 MLS/HR; Start 09/17/18 at 21:00 Enoxaparin Sodium (Lovenox) 40 mg DAILY SC Last administered on 09/21/18 09:02; Admin Dose 40 MG; Start 09/19/18 at 09:00 Magnesium Oxide (Mag-Ox 400) 400 mg DAILY PO Last administered on 09/21/18 08:47; Admin Dose 400 MG; Start 09/19/18 at 10:00 Amiodarone HCl 900 mg/Dextrose 500 ml @ 0 mls/hr Q0M IV ; Start 09/20/18 at 11:00 Diltiazem HCl (Cardizem) 60 mg QID PO Last administered on 09/21/18 12:47; Admin Dose 60 MG; Start 09/20/18 at 12:00 Potassium Chloride (Klor-Con 10) 10 meq DAILY PO ; Start 09/22/18 at 09:00 KEVIN ESTEVEZ MD Sep 21, 2018 16:36
--- NOTE | 2018-09-21 17:44 | PN ---
Date/Time of Note Date/Time of Note DATE: 09/21/18 TIME: 17:42 Assessment/Plan VTE Prophylaxis Risk score (from Ns)>0 risk: 3 SCD applied (from Nsg): Yes Pharmacological prophylaxis: LMWH Lines/Catheters IV Catheter Type (from [facility]): Saline Lock Urinary Cath still in place: No Assessment/Plan Hospital Course 58-year-old male with comorbidities include hypertension, end-stage renal di sease status post renal transplant, peripheral vascular disease, and right foot wound status post a TMA in the recent past with a stump infection that was non- salvageable who underwent an urgent left below-knee amputation on 09/13/2018. 1. Severe left peripheral artery disease with infected left TMA stump. -Status post urgent left below-knee amputation on 09/13/2018, washout done yesterday with vascular -Antibiotics as per ID. 2. Hypotension status post surgical procedure-resolved -Etiology could be secondary to the multiple antihypertensives that he received in the operating room. 3. Sepsis with leukocytosis, febrile illness, and lactic acidosis secondary to lower extremity infection -Likely from residual infection -Pancultures have been sent, cultures currently negative -Antibiotics as per infectious diseases. 4. Hypertension (history). -Continue antihypertensives 5. SVT secondary to A. fib with RVR -Resolved with amiodarone drip, continue amiodarone p.o. -Patient will need anticoagulation but because of anemia will hold for now -Cardiology consultation appreciated 6. Peripheral vascular disease. -Continue statins -Hold antiplatelets because of recent surgery. 7. History of renal transplant. -Continue immunosuppressants. -Nephrology following. 8. Normocytic anemia. -Etiology could be multifactorial. -Continue iron supplements. 9. Dyslipidemia. -Continue statins. DVT prophylaxis. -Lovenox DC plan: -Continue antimicrobials as per ID as patient is still septic -Replete electrolytes. -PT evaluation. -health program manager for senior living placement Result Diagram: 09/21/18 0549 09/21/1849 Results 24hrs Laboratory Tests Test 09/21/18 02:11 09/21/18 05:49 Vancomycin Level Trough 17.5 White Blood Count 14.0 H Red Blood Count 3.17 L Hemoglobin 8.4 L Hematocrit 26.9 L Mean Corpuscular Volume 84.9 Mean Corpuscular Hemoglobin 26.5 L Mean Corpuscular Hemoglobin Concent 31.2 L Red Cell Distribution Width 15.9 H Platelet Count 262 Mean Platelet Volume 9.7 Immature Granulocytes % 1.000 H Neutrophils % 82.4 H Lymphocytes % 5.1 L Monocytes % 7.1 Eosinophils % 4.0 Basophils % 0.4 Nucleated Red Blood Cells % 0.0 Immature Granulocytes # 0.140 H Neutrophils # 11.5 H Lymphocytes # 0.7 L Monocytes # 1.0 H Eosinophils # 0.6 H Basophils # 0.1 Nucleated Red Blood Cells # 0.0 Sodium Level 143 Potassium Level 3.4 L Chloride Level 115 H Carbon Dioxide Level 20 L Anion Gap 8 Blood Urea Nitrogen 13 Creatinine 0.91 Est Glomerular Filtrat Rate mL/min > 60 Glucose Level 112 Calcium Level 8.8 Magnesium Level 1.8 Total Bilirubin 0.4 Direct Bilirubin 0.00 Indirect Bilirubin 0.4 Aspartate Amino Transf (AST/SGOT) 53 H Alanine Aminotransferase (ALT/SGPT) 53 Alkaline Phosphatase 145 H Total Protein 5.8 L Albumin 2.4 L Globulin 3.40 H Albumin/Globulin Ratio 0.70 Subjective 24 Hr Interval Summary Constitutional: no complaints Exam/Review of Systems Exam Vitals Vital Signs Date Temp Pulse Resp B/P (MAP) Pulse Ox O2 O2 Flow FiO2 Time Delivery Rate 09/21/18 119 16:01 09/21/18 98.0 22 129/58 96 Room Air 15:19 (81) Intake and Output 09/20/18 09/20/18 09/21/18 1515:00 23:00 07:00 IntakeIntake Total 700 ml 700 ml OutputOutput Total 1200 ml 650 ml BalanceBalance -500 ml 50 ml Constitutional: alert, oriented Respiratory: clear to auscultation Cardiovascular: regular rate and rhythm Gastrointestinal: soft; No distended Musculoskeletal: nl extremities to inspection Results Results 24hrs Laboratory Tests Test 09/21/18 02:11 09/21/18 05:49 Vancomycin Level Trough 17.5 White Blood Count 14.0 H Red Blood Count 3.17 L Hemoglobin 8.4 L Hematocrit 26.9 L Mean Corpuscular Volume 84.9 Mean Corpuscular Hemoglobin 26.5 L Mean Corpuscular Hemoglobin Concent 31.2 L Red Cell Distribution Width 15.9 H Platelet Count 262 Mean Platelet Volume 9.7 Immature Granulocytes % 1.000 H Neutrophils % 82.4 H Lymphocytes % 5.1 L Monocytes % 7.1 Eosinophils % 4.0 Basophils % 0.4 Nucleated Red Blood Cells % 0.0 Immature Granulocytes # 0.140 H Neutrophils # 11.5 H Lymphocytes # 0.7 L Monocytes # 1.0 H Eosinophils # 0.6 H Basophils # 0.1 Nucleated Red Blood Cells # 0.0 Sodium Level 143 Potassium Level 3.4 L Chloride Level 115 H Carbon Dioxide Level 20 L Anion Gap 8 Blood Urea Nitrogen 13 Creatinine 0.91 Est Glomerular Filtrat Rate mL/min > 60 Glucose Level 112 Calcium Level 8.8 Magnesium Level 1.8 Total Bilirubin 0.4 Direct Bilirubin 0.00 Indirect Bilirubin 0.4 Aspartate Amino Transf (AST/SGOT) 53 H Alanine Aminotransferase (ALT/SGPT) 53 Alkaline Phosphatase 145 H Total Protein 5.8 L Albumin 2.4 L Globulin 3.40 H Albumin/Globulin Ratio 0.70 Medications Medication Current Medications Miscellaneous Information (* Miscellaneous Pharmacy Order) DURAMORPH: 0.2 MG SPI... GIVEN NEURAXIAL XX ; Start 09/13/18 at 16:30 IV Flush (NS 3 ml) 3 ml PER PROTOCOL IV ; Start 09/13/18 at 17:00 Acetaminophen (Tylenol Supp) 650 mg Q6H PRN [place] Fever; Start 09/13/18 at 17:00 Ondansetron HCl (Zofran Inj) 4 mg Q4H PRN IV NAUSEA AND/OR VOMITING; Start 09/13/18 at 17:00 Folic Acid (Folic Acid) 1 mg DAILY PO Last administered on 09/21/18at 08:48; Admin Dose 1 MG; Start 09/14/18 at 09:00 Multivit/Ca Carb/ B Cmplx/FA/Prenat (Flor-Elisa) 1 tab DAILY PO Last administered on 09/21/18 08:47; Admin Dose 1 TAB; Start 09/14/18 at 09:00 Sodium Phosphate (Kphos Neutral) 1,000 mg BID PO Last administered on 09/20/18at 20:45; Admin Dose 1,000 MG; Start 09/13/18 at 21:00 Hydromorphone HCl (Dilaudid) 1 mg Q4H PRN IV SEVERE PAIN LEVEL 7-10 Last administered on 09/19/18at 20:15; Admin Dose 1 MG; Start 09/13/18 at 17:30 Calcitriol (Rocaltrol) 0.5 mcg DAILY PO Last administered on 09/21/18 08:47; Admin Dose 0.5 MCG; Start 09/14/18 at 09:00 Tacrolimus (Prograf) 1 mg BID PO Last administered on 09/21/18 08:47; Admin Dose 1 MG; Start 09/13/18 at 22:00 Leflunomide (Arava) 20 mg DAILY PO Last administered on 09/21/18 08:47; Admin Dose 20 MG; Start 09/14/18 at 09:00 Acetaminophen (Tylenol Tab) 650 mg Q6H PRN PO MILD PAIN(1-3)OR ELEVATED TEMP Last administered on 09/17/18 20:44; Admin Dose 650 MG; Start 09/17/18 at 17:00 Levofloxacin/ Dextrose 100 ml @ 100 mls/hr Q24H IVPB Last administered on 09/20/18 18:25; Admin Dose 100 MLS/HR; Start 09/17/18 at 17:30 Metronidazole 100 ml @ 100 mls/hr Q8 IVPB Last administered on 09/21/18 13:50; Admin Dose 100 MLS/HR; Start 09/17/18 at 22:00 Aztreonam 2 gm/ Sodium Chloride 100 ml @ 100 mls/hr Q12 IVPB Last administered on 09/21/18 08:52; Admin Dose 100 MLS/HR; Start 09/17/18 at 21:00 Enoxaparin Sodium (Lovenox) 40 mg DAILY SC Last administered on 09/21/18 09:02; Admin Dose 40 MG; Start 09/19/18 at 09:00 Magnesium Oxide (Mag-Ox 400) 400 mg DAILY PO Last administered on 09/21/18 08:47; Admin Dose 400 MG; Start 09/19/18 at 10:00 Diltiazem HCl (Cardizem) 60 mg QID PO Last administered on 09/21/18 12:47; Admin Dose 60 MG; Start 09/20/18 at 12:00 Potassium Chloride (Klor-Con 10) 10 meq DAILY PO ; Start 09/22/18 at 09:00 Amiodarone HCl (Cordarone) 400 mg BID PO ; Start 09/21/18 at 21:00 VANESA AVILES Sep 21, 2018 17:44
[2018-09-21] MEDS: LEVOFLOXACIN 500MG/D5W (PMX) 100 ML IVPB SCH (17:46)
[2018-09-21] MEDS: AMIODARONE 200 MG TAB PO SCH (20:37)
[2018-09-22] VITALS (11 sets, daily range): BP systolic 105–158; BP diastolic 8–78; PULSE 73–114; RESP 18
[2018-09-22] MEDS: metroNIDAZOLE 500 MG/NS (PMX) 100 ML IVPB SCH ×3 (05:58→21:25)
[2018-09-22] MEDS ORDERED: POTASSIUM CHLORIDE (SR) 10 MEQ TAB PO SCH ×2 (09:00→21:00)
--- NOTE | 2018-09-22 09:19 | CONS ---
Assessment/Plan Assessment/Plan Assessment/Plan (Daily) 1. improving renal function 2. hypokalemia 3. pvd post bk amputation plan: k replete follow up labs Consultation Date/Type/Reason Admit Date/Time September 13, 2018 at 11:48 Initial Consult Date 09/20/18 Type of Consult Renal Reason for Consultation doing well. no sob and no chest pain. Date/Time of Note DATE: 09/22/18 TIME: 09:15 Exam/Review of Systems Exam Vitals Vital Signs Date Temp Pulse Resp B/P (MAP) Pulse Ox O2 O2 Flow FiO2 Time Delivery Rate 09/22/18 91 08:00 09/22/18 98.0 18 115/72 98 07:51 (86) 09/21/18 Room Air 15:19 Intake and Output 09/21/18 09/21/18 09/22/18 1515:00 23:00 07:00 IntakeIntake Total 1060 ml 300 ml OutputOutput Total 1000 ml BalanceBalance 1060 ml -700 ml Constitutional: alert, oriented, well developed Respiratory: clear to auscultation, normal air movement Cardiovascular: regular rate and rhythm, nl pulses Results Result Diagram: 09/22/18 0457 09/22/18 0457 Results 24hrs Laboratory Tests Test 09/22/18 04:57 White Blood Count 11.3 H Red Blood Count 3.24 L Hemoglobin 8.7 L Hematocrit 27.3 L Mean Corpuscular Volume 84.3 Mean Corpuscular Hemoglobin 26.9 L Mean Corpuscular Hemoglobin Concent 31.9 L Red Cell Distribution Width 15.9 H Platelet Count 282 Mean Platelet Volume 10.2 Immature Granulocytes % 1.100 H Neutrophils % 77.9 H Lymphocytes % 6.1 L Monocytes % 8.8 Eosinophils % 5.5 Basophils % 0.6 Nucleated Red Blood Cells % 0.0 Immature Granulocytes # 0.120 H Neutrophils # 8.8 H Lymphocytes # 0.7 L Monocytes # 1.0 H Eosinophils # 0.6 H Basophils # 0.1 Nucleated Red Blood Cells # 0.0 Sodium Level 142 Potassium Level 3.0 L Chloride Level 113 H Carbon Dioxide Level 24 Anion Gap 5 Blood Urea Nitrogen 11 Creatinine 0.89 Est Glomerular Filtrat Rate mL/min > 60 Glucose Level 104 Calcium Level 8.8 Procalcitonin 0.80 H Medications Medication Current Medications Miscellaneous Information (* Miscellaneous Pharmacy Order) DURAMORPH: 0.2 MG SPI... GIVEN NEURAXIAL XX ; Start 09/13/18 at 16:30 IV Flush (NS 3 ml) 3 ml PER PROTOCOL IV ; Start 09/13/18 at 17:00 Acetaminophen (Tylenol Supp) 650 mg Q6H PRN [place] Fever; Start 09/13/18 at 17:00 Ondansetron HCl (Zofran Inj) 4 mg Q4H PRN IV NAUSEA AND/OR VOMITING; Start 09/13/18 at 17:00 Folic Acid (Folic Acid) 1 mg DAILY PO Last administered on 09/21/18 08:48; Admin Dose 1 MG; Start 09/14/18 at 09:00 Multivit/Ca Carb/ B Cmplx/FA/Prenat (Flor-Elisa) 1 tab DAILY PO Last administe red on 09/21/18 08:47; Admin Dose 1 TAB; Start 09/14/18 at 09:00 Sodium Phosphate (Kphos Neutral) 1,000 mg BID PO Last administered on 09/21/18 20:35; Admin Dose 1,000 MG; Start 09/13/18 at 21:00 Hydromorphone HCl (Dilaudid) 1 mg Q4H PRN IV SEVERE PAIN LEVEL 7-10 Last administered on 09/19/18 20:15; Admin Dose 1 MG; Start 09/13/18 at 17:30 Calcitriol (Rocaltrol) 0.5 mcg DAILY PO Last administered on 09/21/18 08:47; Admin Dose 0.5 MCG; Start 09/14/18 at 09:00 Tacrolimus (Prograf) 1 mg BID PO Last administered on 09/21/18 20:37; Admin Dose 1 MG; Start 09/13/18 at 22:00 Leflunomide (Arava) 20 mg DAILY PO Last administered on 09/21/18 08:47; Admin Dose 20 MG; Start 09/14/18 at 09:00 Acetaminophen (Tylenol Tab) 650 mg Q6H PRN PO MILD PAIN(1-3)OR ELEVATED TEMP Last administered on 09/17/18 20:44; Admin Dose 650 MG; Start 09/17/18 at 17:00 Levofloxacin/ Dextrose 100 ml @ 100 mls/hr Q24H IVPB Last administered on 09/21/18 17:46; Admin Dose 100 MLS/HR; Start 09/17/18 at 17:30 Metronidazole 100 ml @ 100 mls/hr Q8 IVPB Last administered on 09/22/18 05:58; Admin Dose 100 MLS/HR; Start 09/17/18 at 22:00 Aztreonam 2 gm/ Sodium Chloride 100 ml @ 100 mls/hr Q12 IVPB Last administered on 09/21/18 20:38; Admin Dose 100 MLS/HR; Start 09/17/18 at 21:00 Enoxaparin Sodium (Lovenox) 40 mg DAILY SC Last administered on 09/21/18 09:02; Admin Dose 40 MG; Start 09/19/18 at 09:00 Magnesium Oxide (Mag-Ox 400) 400 mg DAILY PO Last administered on 09/21/18 08:47; Admin Dose 400 MG; Start 09/19/18 at 10:00 Diltiazem HCl (Cardizem) 60 mg QID PO Last administered on 09/21/18 20:36; Admin Dose 60 MG; Start 09/20/18 at 12:00 Potassium Chloride (Klor-Con 10) 10 meq DAILY PO ; Start 09/22/18 at 09:00 Amiodarone HCl (Cordarone) 400 mg BID PO Last administered on 09/21/18 20:37; Admin Dose 400 MG; Start 09/21/18 at 21:00 YULIANA HUMPHREYS MD Sep 22, 2018 09:19
[2018-09-22] MEDS: DILTIAZEM 60 MG TAB PO SCH ×4 (12:16→21:20)
[2018-09-22] MEDS: LEFLUNOMIDE 20 MG TAB PO SCH (12:17)
[2018-09-22] MEDS: FOLIC ACID 1 MG TAB PO SCH (12:17)
[2018-09-22] MEDS: MULTIVIT/CA CARB/B CMPLX/FA TAB PO SCH (12:17)
[2018-09-22] MEDS: AMIODARONE 200 MG TAB PO SCH ×2 (12:17→21:19)
--- NOTE | 2018-09-22 12:17 | PN ---
Date/Time of Note Date/Time of Note DATE: 09/22/18 TIME: 12:14 Assessment/Plan VTE Prophylaxis Risk score (from Nsg)>0 risk: 3 Pharmacological prophylaxis: heparin Lines/Catheters IV Catheter Type (from Nrsg): Saline Lock Urinary Cath still in place: No Assessment/Plan Hospital Course 58-year-old male with comorbidities include hypertension, end-stage renal disease status post renal transplant, peripheral vascular disease, and right foot wound status post a TMA in the recent past with a stump infection that was non-salvageable who underwent an urgent left below-knee amputation on 09/13/2018. 1. Severe left peripheral artery disease with infected left TMA stump. -Status post urgent left below-knee amputation on 09/13/2018, washout also done -Antibiotics as per ID. 2. SVT secondary to A. fib with RVR -Resolved with amiodarone drip, continue amiodarone p.o. and diltiazem p.o. -Patient will need anticoagulation but because of anemia will hold for now -Cardiology consultation appreciated 3. Sepsis with leukocytosis, febrile illness, and lactic acidosis secondary to lower extremity infection -Likely from residual infection -Pancultures have been sent, cultures currently negative -Antibiotics as per infectious diseases. 4. Hypertension (history). -Patient on diltiazem 5. Hypokalemia -Replete 6. Peripheral vascular disease. -Continue statins -Hold antiplatelets because of recent surgery. 7. History of renal transplant. -Continue immunosuppressants. -Nephrology following. 8. Normocytic anemia -Etiology multifactorial. -Continue iron supplements 9. Dyslipidemia. -Continue statins. DVT prophylaxis. -Lovenox DC plan: -Continue antimicrobials as per ID as patient is still septic -Replete electrolytes. -PT evaluation. -freight manager for [facility] placement Result Diagram: 09/22/18 0457 09/22/18 0457 Results 24hrs Laboratory Tests Test 09/22/18 04:57 White Blood Count 11.3 H Red Blood Count 3.24 L Hemoglobin 8.7 L Hematocrit 27.3 L Mean Corpuscular Volume 84.3 Mean Corpuscular Hemoglobin 26.9 L Mean Corpuscular Hemoglobin Concent 31.9 L Red Cell Distribution Width 15.9 H Platelet Count 282 Mean Platelet Volume 10.2 Immature Granulocytes % 1.100 H Neutrophils % 77.9 H Lymphocytes % 6.1 L Monocytes % 8.8 Eosinophils % 5.5 Basophils % 0.6 Nucleated Red Blood Cells % 0.0 Immature Granulocytes # 0.120 H Neutrophils # 8.8 H Lymphocytes # 0.7 L Monocytes # 1.0 H Eosinophils # 0.6 H Basophils # 0.1 Nucleated Red Blood Cells # 0.0 Sodium Level 142 Potassium Level 3.0 L Chloride Level 113 H Carbon Dioxide Level 24 Anion Gap 5 Blood Urea Nitrogen 11 Creatinine 0.89 Est Glomerular Filtrat Rate mL/min > 60 Glucose Level 104 Calcium Level 8.8 Procalcitonin 0.80 H Subjective 24 Hr Interval Summary Constitutional: no complaints Exam/Review of Systems Exam Vitals Vital Signs Date Temp Pulse Resp B/P (MAP) Pulse Ox O2 O2 Flow FiO2 Time Delivery Rate 09/22/18 91 08:00 09/22/18 98.0 18 115/72 98 07:51 (86) 09/21/18 Room Air 15:19 Intake and Output 09/21/18 09/21/18 09/22/18 1515:00 23:00 07:00 IntakeIntake Total 1060 ml 300 ml OutputOutput Total 1000 ml BalanceBalance 1060 ml -700 ml Constitutional: alert, oriented Respiratory: clear to auscultation Cardiovascular: regular rate and rhythm Gastrointestinal: soft; No distended Musculoskeletal: nl extremities to inspection Results Results 24hrs Laboratory Tests Test 09/22/18 04:57 White Blood Count 11.3 H Red Blood Count 3.24 L Hemoglobin 8.7 L Hematocrit 27.3 L Mean Corpuscular Volume 84.3 Mean Corpuscular Hemoglobin 26.9 L Mean Corpuscular Hemoglobin Concent 31.9 L Red Cell Distribution Width 15.9 H Platelet Count 282 Mean Platelet Volume 10.2 Immature Granulocytes % 1.100 H Neutrophils % 77.9 H Lymphocytes % 6.1 L Monocytes % 8.8 Eosinophils % 5.5 Basophils % 0.6 Nucleated Red Blood Cells % 0.0 Immature Granulocytes # 0.120 H Neutrophils # 8.8 H Lymphocytes # 0.7 L Monocytes # 1.0 H Eosinophils # 0.6 H Basophils # 0.1 Nucleated Red Blood Cells # 0.0 Sodium Level 142 Potassium Level 3.0 L Chloride Level 113 H Carbon Dioxide Level 24 Anion Gap 5 Blood Urea Nitrogen 11 Creatinine 0.89 Est Glomerular Filtrat Rate mL/min > 60 Glucose Level 104 Calcium Level 8.8 Procalcitonin 0.80 H Medications Medication Current Medications Miscellaneous Information (* Miscellaneous Pharmacy Order) DURAMORPH: 0.2 MG SPI... GIVEN NEURAXIAL XX ; Start 09/13/18 at 16:30 IV Flush (NS 3 ml) 3 ml PER PROTOCOL IV ; Start 09/13/18 at 17:00 Acetaminophen (Tylenol Supp) 650 mg Q6H PRN [place] Fever; Start 09/13/18 at 17:00 Ondansetron HCl (Zofran Inj) 4 mg Q4H PRN IV NAUSEA AND/OR VOMITING; Start 09/13/18 at 17:00 Folic Acid (Folic Acid) 1 mg DAILY PO Last administered on 09/21/18 08:48; Admin Dose 1 MG; Start 09/14/18 at 09:00 Multivit/Ca Carb/ B Cmplx/FA/Prenat (Flor-Elisa) 1 tab DAILY PO Last administered on 09/21/18 08:47; Admin Dose 1 TAB; Start 09/14/18 at 09:00 Sodium Phosphate (Kphos Neutral) 1,000 mg BID PO Last administered on 09/21/18 20:35; Admin Dose 1,000 MG; Start 09/13/18 at 21:00 Hydromorphone HCl (Dilaudid) 1 mg Q4H PRN IV SEVERE PAIN LEVEL 7-10 Last administered on 09/19/18 20:15; Admin Dose 1 MG; Start 09/13/18 at 17:30 Calcitriol (Rocaltrol) 0.5 mcg DAILY PO Last administered on 09/21/18 08:47; Admin Dose 0.5 MCG; Start 09/14/18 at 09:00 Tacrolimus (Prograf) 1 mg BID PO Last administered on 09/21/18 20:37; Admin Dose 1 MG; Start 09/13/18 at 22:00 Leflunomide (Arava) 20 mg DAILY PO Last administered on 09/21/18 08:47; Admin Dose 20 MG; Start 09/14/18 at 09:00 Acetaminophen (Tylenol Tab) 650 mg Q6H PRN PO MILD PAIN(1-3)OR ELEVATED TEMP Last administered on 09/17/18 20:44; Admin Dose 650 MG; Start 09/17/18 at 17:00 Levofloxacin/ Dextrose 100 ml @ 100 mls/hr Q24H IVPB Last administered on 09/21/18 17:46; Admin Dose 100 MLS/HR; Start 09/17/18 at 17:30 Metronidazole 100 ml @ 100 mls/hr Q8 IVPB Last administered on 09/22/18 05:58; Admin Dose 100 MLS/HR; Start 09/17/18 at 22:00 Aztreonam 2 gm/ Sodium Chloride 100 ml @ 100 mls/hr Q12 IVPB Last administered on 09/21/18 20:38; Admin Dose 100 MLS/HR; Start 09/17/18 at 21:00 Enoxaparin Sodium (Lovenox) 40 mg DAILY SC Last administered on 09/21/18 09:02; Admin Dose 40 MG; Start 09/19/18 at 09:00 Magnesium Oxide (Mag-Ox 400) 400 mg DAILY PO Last administered on 09/21/18 08:47; Admin Dose 400 MG; Start 09/19/18 at 10:00 Diltiazem HCl (Cardizem) 60 mg QID PO Last administered on 09/21/18 20:36; Admin Dose 60 MG; Start 09/20/18 at 12:00 Potassium Chloride (Klor-Con 10) 10 meq DAILY PO ; Start 09/22/18 at 09:00 Amiodarone HCl (Cordarone) 400 mg BID PO Last administered on 09/21/18 20:37; Admin Dose 400 MG; Start 09/21/18 at 21:00 VANESA AVILES Sep 22, 2018 12:17
[2018-09-22] MEDS: TACROLIMUS 1 MG CAP PO SCH ×2 (12:18→21:19)
[2018-09-22] MEDS: MAGNESIUM OXIDE 400 MG TAB PO SCH (12:18)
[2018-09-22] MEDS: CALCITRIOL 0.25 MCG CAP PO SCH (12:18)
[2018-09-22] MEDS: ENOXAPARIN 40 MG/0.4 ML SYG SC SCH (12:20)
[2018-09-22] MEDS: AZTREONAM 2 GM in SOD CHLORIDE 0.9% 100 ML IVPB SCH ×2 (13:39→21:18)
--- NOTE | 2018-09-22 15:37 | CONS ---
Assessment/Plan Assessment/Plan Hospital Course (Demo Recall) New onset atrial fibrillation with RVR: Reverted to sinus rhythm on amiodarone drip. CHADSVASC 2 for HTN and PAD so should be anticoagulated but with downtrending hgb (7.9) and postop, will need to discuss with surgery first s/p BKA 09/13/18 Sepsis due to above Severe PAD HTN Renal transplantation 2006 -continue amiodarone 400mg PO BID -start anticoagulation with Eliquis or Xarelto when able to from surgical perspective -echocardiogram showed normal LVEF 60%, no significant valve disease Consultation Date/Type/Reason Admit Date/Time September 13, 2018 at 11:48 Initial Consult Date 09/20/18 Type of Consult Cardiology Date/Time of Note DATE: 09/22/18 TIME: 15:36 24 HR Interval Summary Free Text/Dictation No acute events. Sinus rhythm on telemetry. Detailed Summary Additional Comments 14 point review of systems without changes. Exam/Review of Systems Vital Signs Vitals Vital Signs Date Temp Pulse Resp B/P (MAP) Pulse Ox O2 O2 Flow FiO2 Time Delivery Rate 09/22/18 98.0 73 18 133/78 98 12:53 (96) 09/21/18 Room Air 15:19 Intake and Output 09/21/18 09/21/18 09/22/18 1515:00 23:00 07:00 IntakeIntake Total 1060 ml 300 ml OutputOutput Total 1000 ml BalanceBalance 1060 ml -700 ml Exam Exam Constitutional: alert, oriented Psych: no complaints, nl mood/affect Neck: No jvd Respiratory: clear to auscultation Cardiovascular: Regular rate and rhythm, No edema, No systolic murmur Gastrointestinal: soft, non-tender; No distended 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: nl mental status, nl speech Labs Result Diagram: 09/22/18 0457 09/22/18 0457 Results 24hrs Laboratory Tests Test 09/22/18 04:57 White Blood Count 11.3 H Red Blood Count 3.24 L Hemoglobin 8.7 L Hematocrit 27.3 L Mean Corpuscular Volume 84.3 Mean Corpuscular Hemoglobin 26.9 L Mean Corpuscular Hemoglobin Concent 31.9 L Red Cell Distribution Width 15.9 H Platelet Count 282 Mean Platelet Volume 10.2 Immature Granulocytes % 1.100 H Neutrophils % 77.9 H Lymphocytes % 6.1 L Monocytes % 8.8 Eosinophils % 5.5 Basophils % 0.6 Nucleated Red Blood Cells % 0.0 Immature Granulocytes # 0.120 H Neutrophils # 8.8 H Lymphocytes # 0.7 L Monocytes # 1.0 H Eosinophils # 0.6 H Basophils # 0.1 Nucleated Red Blood Cells # 0.0 Sodium Level 142 Potassium Level 3.0 L Chloride Level 113 H Carbon Dioxide Level 24 Anion Gap 5 Blood Urea Nitrogen 11 Creatinine 0.89 Est Glomerular Filtrat Rate mL/min > 60 Glucose Level 104 Calcium Level 8.8 Procalcitonin 0.80 H Medications Medications Current Medications Miscellaneous Information (* Miscellaneous Pharmacy Order) DURAMORPH: 0.2 MG SPI... GIVEN NEURAXIAL XX ; Start 09/13/18 at 16:30 IV Flush (NS 3 ml) 3 ml PER PROTOCOL IV ; Start 09/13/18 at 17:00 Acetaminophen (Tylenol Supp) 650 mg Q6H PRN [place] Fever; Start 09/13/18 at 17:00 Ondansetron HCl (Zofran Inj) 4 mg Q4H PRN IV NAUSEA AND/OR VOMITING; Start 09/13/18 at 17:00 Folic Acid (Folic Acid) 1 mg DAILY PO Last administered on 09/22/18at 12:17; Admin Dose 1 MG; Start 09/14/18 at 09:00 Multivit/Ca Carb/ B Cmplx/FA/Prenat (Flor-Elisa) 1 tab DAILY PO Last administered on 09/22/18at 12:17; Admin Dose 1 TAB; Start 09/14/18 at 09:00 Sodium Phosphate (Kphos Neutral) 1,000 mg BID PO Last administered on 09/21/18at 20:35; Admin Dose 1,000 MG; Start 09/13/18 at 21:00 Hydromorphone HCl (Dilaudid) 1 mg Q4H PRN IV SEVERE PAIN LEVEL 7-10 Last administered on 09/19/18at 20:15; Admin Dose 1 MG; Start 09/13/18 at 17:30 Calcitriol (Rocaltrol) 0.5 mcg DAILY PO Last administered on 09/22/18at 12:18; Admin Dose 0.5 MCG; Start 09/14/18 at 09:00 Tacrolimus (Prograf) 1 mg BID PO Last administered on 09/22/18 12:18; Admin Dose 1 MG; Start 09/13/18 at 22:00 Leflunomide (Arava) 20 mg DAILY PO Last administered on 09/22/18 12:17; Admin Dose 20 MG; Start 09/14/18 at 09:00 Acetaminophen (Tylenol Tab) 650 mg Q6H PRN PO MILD PAIN(1-3)OR ELEVATED TEMP Last administered on 09/17/18 20:44; Admin Dose 650 MG; Start 09/17/18 at 17:00 Levofloxacin/ Dextrose 100 ml @ 100 mls/hr Q24H IVPB Last administered on 09/21/18 17:46; Admin Dose 100 MLS/HR; Start 09/17/18 at 17:30 Metronidazole 100 ml @ 100 mls/hr Q8 IVPB Last administered on 09/22/18 14:09; Admin Dose 100 MLS/HR; Start 09/17/18 at 22:00 Aztreonam 2 gm/ Sodium Chloride 100 ml @ 100 mls/hr Q12 IVPB Last administered on 09/22/18 13:39; Admin Dose 100 MLS/HR; Start 09/17/18 at 21:00 Enoxaparin Sodium (Lovenox) 40 mg DAILY SC Last administered on 09/22/18 12:20; Admin Dose 40 MG; Start 09/19/18 at 09:00 Magnesium Oxide (Mag-Ox 400) 400 mg DAILY PO Last administered on 09/22/18 12:18; Admin Dose 400 MG; Start 09/19/18 at 10:00 Diltiazem HCl (Cardizem) 60 mg QID PO Last administered on 09/22/18 14:09; Admin Dose 60 MG; Start 09/20/18 at 12:00 Amiodarone HCl (Cordarone) 400 mg BID PO Last administered on 09/22/18 12:17; Admin Dose 400 MG; Start 09/21/18 at 21:00 Potassium Chloride (Klor-Con 10) 10 meq BID PO ; Start 09/22/18 at 21:00 KEVIN ESTEVEZ MD Sep 22, 2018 15:37
[2018-09-22] MEDS: SOD PHOS MONO/DIBAS 250 MG TAB PO SCH ×2 (16:53→23:37)
[2018-09-22] MEDS: LEVOFLOXACIN 500MG/D5W (PMX) 100 ML IVPB SCH (18:07)
--- NOTE | 2018-09-22 19:20 | CONS ---
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 ESR 121 on 09/12/2018. 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 All the infected tissue was removed by L BKA according to Dr. Cortes progress note - h/o gangrene and infection of L foot - afib with RVR- converted to SR - hypertension - h/o renal transplant at [facility] in 2006, maintained on tacrolimus - immunocompromised status - expected post-op anemia - transaminitis - improving - hypomagnesemia - repleted - adverse reaction to cefazolin (hives), meropenem (pruritus) Recommendations: - continue aztreonam (09/13/2018-), levofloxacin (09/17/2018-), and metronidazole (09/17/2018-) for now - f/u blood cultures 09/17/18 (NGTD), wound cx (GNR), intraop cx (prelim CoNS isolated from broth only- likely colonizer), fungus cx (NGTD) - trend WBC and fever curve - both improving - serial procalcitonin - Dr. Cortes planning reconstruction of BKA or proceed with AKA when infection is fully controlled Management d/w patient, XAVIER Hines, and with Dr. Bailey Consultation Date/Type/Reason Admit Date/Time September 13, 2018 at 11:48 Initial Consult Date 09/13/18 Type of Consult Infectious Disease Date/Time of Note DATE: 09/22/18 TIME: 19:20 24 HR Interval Summary Free Text/Dictation Intraop wound cx from 09/19 growing Coagulase negative staph isolated from broth only. LLE wound cx from 09/18 growing GNR. No acute issues per d/w nursing. Pt is forgetful but no reported hallucinated. Denies LLE pain, SOB, n/v/d, dysuria. Converted back to SR on amiodarone drip. Exam/Review of Systems Exam Vitals Vital Signs Date Temp Pulse Resp B/P (MAP) Pulse Ox O2 O2 Flow FiO2 Time Delivery Rate 09/22/18 99 16:00 09/22/18 98.0 18 158/8 (58) 98 15:48 09/21/18 Room Air 15:19 Intake and Output 09/21/18 09/21/18 09/22/18 1515:00 23:00 07:00 IntakeIntake Total 1060 ml 300 ml OutputOutput Total 1000 ml BalanceBalance 1060 ml -700 ml Exam Constitutional: alert, oriented, well developed (just finished eating in NAD) Psych: other (calm) Head: normocephalic, atraumatic Eyes: nl conjunctiva, nl lids, nl sclera ENMT: nl external ears & nose, nl nasal mucosa & septum, mucosa pink and moist (no thrush) Neck: supple Respiratory: clear to auscultation, normal air movement (stable on room air) Cardiovascular: regular rate and rhythm; nl pulses Gastrointestinal: soft, non-tender; No distended Genitourinary - Male: other (No Don) Musculoskeletal: other (L BKA wrapped with KATHIE bandage and connected to wound VAC with serosanguinous output) Extremities: normal pulses; No edema 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: nl mental status, nl speech, other (answers simple questions appropriately; follows commands) Skin: nl turgor; No rash or lesions Results Result Diagram: 09/22/1845609/22/18 0457 Results 24hrs Laboratory Tests Test 09/22/18 04:57 09/22/18 18:15 White Blood Count 11.3 H Red Blood Count 3.24 L Hemoglobin 8.7 L Hematocrit 27.3 L Mean Corpuscular Volume 84.3 Mean Corpuscular Hemoglobin 26.9 L Mean Corpuscular Hemoglobin Concent 31.9 L Red Cell Distribution Width 15.9 H Platelet Count 282 Mean Platelet Volume 10.2 Immature Granulocytes % 1.100 H Neutrophils % 77.9 H Lymphocytes % 6.1 L Monocytes % 8.8 Eosinophils % 5.5 Basophils % 0.6 Nucleated Red Blood Cells % 0.0 Immature Granulocytes # 0.120 H Neutrophils # 8.8 H Lymphocytes # 0.7 L Monocytes # 1.0 H Eosinophils # 0.6 H Basophils # 0.1 Nucleated Red Blood Cells # 0.0 Sodium Level 142 Potassium Level 3.0 L Chloride Level 113 H Carbon Dioxide Level 24 Anion Gap 5 Blood Urea Nitrogen 11 Creatinine 0.89 Est Glomerular Filtrat Rate mL/min > 60 Glucose Level 104 Calcium Level 8.8 Procalcitonin 0.80 H Bedside Glucose 123 Medications Medication Current Medications Miscellaneous Information (* Miscellaneous Pharmacy Order) DURAMORPH: 0.2 MG SPI... GIVEN NEURAXIAL XX ; Start 09/13/18 at 16:30 IV Flush (NS 3 ml) 3 ml PER PROTOCOL IV ; Start 09/13/18 at 17:00 Acetaminophen (Tylenol Supp) 650 mg Q6H PRN [place] Fever; Start 09/13/18 at 17:00 Ondansetron HCl (Zofran Inj) 4 mg Q4H PRN IV NAUSEA AND/OR VOMITING; Start 09/13/18 at 17:00 Folic Acid (Folic Acid) 1 mg DAILY PO Last administered on 09/22/18 12:17; Admin Dose 1 MG; Start 09/14/18 at 09:00 Multivit/Ca Carb/ B Cmplx/FA/Prenat (Flor-Elisa) 1 tab DAILY PO Last administered on 09/22/18 12:17; Admin Dose 1 TAB; Start 09/14/18 at 09:00 Sodium Phosphate (Kphos Neutral) 1,000 mg BID PO Last administered on 09/22/18 16:53; Admin Dose 1,000 MG; Start 09/13/18 at 21:00 Hydromorphone HCl (Dilaudid) 1 mg Q4H PRN IV SEVERE PAIN LEVEL 7-10 Last administered on 09/19/18 20:15; Admin Dose 1 MG; Start 09/13/18 at 17:30 Calcitriol (Rocaltrol) 0.5 mcg DAILY PO Last administered on 09/22/18 12:18; Admin Dose 0.5 MCG; Start 09/14/18 at 09:00 Tacrolimus (Prograf) 1 mg BID PO Last administered on 09/22/18 12:18; Admin Dose 1 MG; Start 09/13/18 at 22:00 Leflunomide (Arava) 20 mg DAILY PO Last administered on 09/22/18 12:17; Admin Dose 20 MG; Start 09/14/18 at 09:00 Acetaminophen (Tylenol Tab) 650 mg Q6H PRN PO MILD PAIN(1-3)OR ELEVATED TEMP Last administered on 09/17/18 20:44; Admin Dose 650 MG; Start 09/17/18 at 17:00 Levofloxacin/ Dextrose 100 ml @ 100 mls/hr Q24H IVPB Last administered on 09/22/18 18:07; Admin Dose 100 MLS/HR; Start 09/17/18 at 17:30 Metronidazole 100 ml @ 100 mls/hr Q8 IVPB Last administered on 09/22/18 14:09; Admin Dose 100 MLS/HR; Start 09/17/18 at 22:00 Aztreonam 2 gm/ Sodium Chloride 100 ml @ 100 mls/hr Q12 IVPB Last administered on 09/22/18 13:39; Admin Dose 100 MLS/HR; Start 09/17/18 at 21:00 Enoxaparin Sodium (Lovenox) 40 mg DAILY SC Last administered on 09/22/18 12:20; Admin Dose 40 MG; Start 09/19/18 at 09:00 Magnesium Oxide (Mag-Ox 400) 400 mg DAILY PO Last administered on 09/22/18 12:18; Admin Dose 400 MG; Start 09/19/18 at 10:00 Diltiazem HCl (Cardizem) 60 mg QID PO Last administered on 09/22/18 18:07; Admin Dose 60 MG; Start 09/20/18 at 12:00 Amiodarone HCl (Cordarone) 400 mg BID PO Last administered on 09/22/18 12:17; Admin Dose 400 MG; Start 09/21/18 at 21:00 Potassium Chloride (Klor-Con 10) 10 meq BID PO ; Start 09/22/18 at 21:00 ROSALBA MARTI NP Sep 22, 2018 19:20
[2018-09-23] VITALS (10 sets, daily range): BP systolic 102–150; BP diastolic 57–87; PULSE 75–101; RESP 18
[2018-09-23] MEDS: metroNIDAZOLE 500 MG/NS (PMX) 100 ML IVPB SCH ×3 (05:44→22:48)
[2018-09-23] MEDS ORDERED: POTASSIUM CHLORIDE 20 MEQ POWDER FOR ORAL SOLN PO ONE (08:30)
[2018-09-23] MEDS: CALCITRIOL 0.25 MCG CAP PO SCH (08:31)
[2018-09-23] MEDS: LEFLUNOMIDE 20 MG TAB PO SCH (08:32)
[2018-09-23] MEDS: MAGNESIUM OXIDE 400 MG TAB PO SCH (08:32)
[2018-09-23] MEDS: FOLIC ACID 1 MG TAB PO SCH (08:32)
[2018-09-23] MEDS: TACROLIMUS 1 MG CAP PO SCH ×2 (08:33→21:42)
[2018-09-23] MEDS: ENOXAPARIN 40 MG/0.4 ML SYG SC SCH (08:36)
--- NOTE | 2018-09-23 08:41 | CONS ---
Assessment/Plan Assessment/Plan Hospital Course (Demo Recall) 1. Kidney transplant status. The patient had a cadaveric kidney transplant in 2006. He is on immunosuppressive therapy. His renal function today is back to normal. 2. He is now10 days postop a left below the knee amputation. His left foot was infected and gangrenous. He now has a L stump that is draining dark bloody purulent material . He underwent a second surgery last week. The left stump wound was opened, drained, debrided and washed out. He now has a drain leading to a wound VAC on the left knee stump. 3. Hypertension 4. Peripheral artery disease 5. Anemia 6. Hyperlipidemia. 7. Hypomagnesemia, will replace magnesium today.I suspect he is loosing magnesium through kidney . I have started him on an oral magnesium supplement. 8. Hypokalemia. I will increase his potassium supplements. I will order labs for tomorrow. Consultation Date/Type/Reason Admit Date/Time September 13, 2018 at 11:48 Initial Consult Date 09/13/18 Type of Consult Nephrology Date/Time of Note DATE: 09/23/18 TIME: 08:37 24 HR Interval Summary Free Text/Dictation Alphonso is awake and alert. He is being seen in nephrologic consultation. He has no new complaints. Constitutional: no complaints, improved Exam/Review of Systems Exam Vitals Vital Signs Date Temp Pulse Resp B/P (MAP) Pulse Ox O2 O2 Flow FiO2 Time Delivery Rate 09/23/18 98.0 89 18 102/57 98 07:43 (72) 09/21/18 Room Air 15:19 Intake and Output 09/22/18 09/22/18 09/23/18 1515:00 23:00 07:00 IntakeIntake Total 720 ml 400 ml 1400 ml OutputOutput Total 1150 ml 350 ml 1500 ml BalanceBalance -430 ml 50 ml -100 ml Exam Left leg is status post a left below the knee amputation and has a drain and wound VAC. Constitutional: alert, oriented, frail Respiratory: clear to auscultation, normal air movement Cardiovascular: regular rate and rhythm Gastrointestinal: soft, non-tender Results Result Diagram: 09/23/1851809/23/18 0519 Results 24hrs Laboratory Tests Test 09/22/18 18:15 09/23/18 05:19 Bedside Glucose 123 White Blood Count 11.2 H Red Blood Count 3.53 L Hemoglobin 9.3 L Hematocrit 29.9 L Mean Corpuscular Volume 84.7 Mean Corpuscular Hemoglobin 26.3 L Mean Corpuscular Hemoglobin Concent 31.1 L Red Cell Distribution Width 16.3 H Platelet Count 292 Mean Platelet Volume 10.2 Immature Granulocytes % 1.700 H Neutrophils % 73.8 Lymphocytes % 8.1 L Monocytes % 9.1 Eosinophils % 6.6 Basophils % 0.7 Nucleated Red Blood Cells % 0.0 Immature Granulocytes # 0.190 H Neutrophils # 8.3 H Lymphocytes # 0.9 Monocytes # 1.0 H Eosinophils # 0.7 H Basophils # 0.1 Nucleated Red Blood Cells # 0.0 Sodium Level 142 Potassium Level 3.2 L Chloride Level 113 H Carbon Dioxide Level 24 Anion Gap 5 Blood Urea Nitrogen 12 Creatinine 0.93 Est Glomerular Filtrat Rate mL/min > 60 Glucose Level 106 Calcium Level 8.8 Medications Medication Current Medications Miscellaneous Information (* Miscellaneous Pharmacy Order) DURAMORPH: 0.2 MG SPI... GIVEN NEURAXIAL XX ; Start 09/13/18 at 16:30 IV Flush (NS 3 ml) 3 ml PER PROTOCOL IV ; Start 09/13/18 at 17:00 Acetaminophen (Tylenol Supp) 650 mg Q6H PRN [place] Fever; Start 09/13/18 at 17:00 Ondansetron HCl (Zofran Inj) 4 mg Q4H PRN IV NAUSEA AND/OR VOMITING; Start 09/13/18 at 17:00 Folic Acid (Folic Acid) 1 mg DAILY PO Last administered on 09/23/18at 08:32; Admin Dose 1 MG; Start 09/14/18 at 09:00 Multivit/Ca Carb/ B Cmplx/FA/Prenat (Flor-Elisa) 1 tab DAILY PO Last administered on 09/22/18at 12:17; Admin Dose 1 TAB; Start 09/14/18 at 09:00 Sodium Phosphate (Kphos Neutral) 1,000 mg BID PO Last administered on 09/22/18at 23:37; Admin Dose 1,000 MG; Start 09/13/18 at 21:00 Hydromorphone HCl (Dilaudid) 1 mg Q4H PRN IV SEVERE PAIN LEVEL 7-10 Last administered on 09/19/18at 20:15; Admin Dose 1 MG; Start 09/13/18 at 17:30 Calcitriol (Rocaltrol) 0.5 mcg DAILY PO Last administered on 09/23/18 08:31; Admin Dose 0.5 MCG; Start 09/14/18 at 09:00 Tacrolimus (Prograf) 1 mg BID PO Last administered on 09/23/18 08:33; Admin Dose 1 MG; Start 09/13/18 at 22:00 Leflunomide (Arava) 20 mg DAILY PO Last administered on 09/23/18 08:32; Admin Dose 20 MG; Start 09/14/18 at 09:00 Acetaminophen (Tylenol Tab) 650 mg Q6H PRN PO MILD PAIN(1-3)OR ELEVATED TEMP Last administered on 09/17/18 20:44; Admin Dose 650 MG; Start 09/17/18 at 17:00 Levofloxacin/ Dextrose 100 ml @ 100 mls/hr Q24H IVPB Last administered on 09/22/18 18:07; Admin Dose 100 MLS/HR; Start 09/17/18 at 17:30 Metronidazole 100 ml @ 100 mls/hr Q8 IVPB Last administered on 09/23/18 05:44; Admin Dose 100 MLS/HR; Start 09/17/18 at 22:00 Aztreonam 2 gm/ Sodium Chloride 100 ml @ 100 mls/hr Q12 IVPB Last administered on 09/22/18 21:18; Admin Dose 100 MLS/HR; Start 09/17/18 at 21:00 Enoxaparin Sodium (Lovenox) 40 mg DAILY SC Last administered on 09/22/18 12:20; Admin Dose 40 MG; Start 09/19/18 at 09:00 Magnesium Oxide (Mag-Ox 400) 400 mg DAILY PO Last administered on 09/23/18 08:32; Admin Dose 400 MG; Start 09/19/18 at 10:00 Amiodarone HCl (Cordarone) 200 mg BID PO ; Start 09/23/18 at 09:00 Diltiazem HCl (Cardizem Cd) 180 mg DAILY PO ; Start 09/23/18 at 09:00 Potassium Chloride (Klor-Con 10) 20 meq BID PO ; Start 09/23/18 at 09:00 ERIN MONTOYA MD Sep 23, 2018 08:41
[2018-09-23] MEDS: AMIODARONE 200 MG TAB PO SCH ×2 (08:44→21:44)
[2018-09-23] MEDS: DILTIAZEM (CD) 180 MG CAP PO SCH (08:45)
[2018-09-23] MEDS: POTASSIUM CHLORIDE (SR) 10 MEQ TAB PO SCH ×2 (08:45→21:42)
[2018-09-23] MEDS: AZTREONAM 2 GM in SOD CHLORIDE 0.9% 100 ML IVPB SCH ×2 (08:46→21:49)
[2018-09-23] MEDS: MULTIVIT/CA CARB/B CMPLX/FA TAB PO SCH (08:54)
--- NOTE | 2018-09-23 10:37 | CONS ---
Assessment/Plan Assessment/Plan Hospital Course (Demo Recall) New onset paroxysmal atrial fibrillation with RVR: EF preserved. CHADSVASC 2 for HTN and PAD so should be anticoagulated if ok with surgery s/p BKA 09/13/18 Sepsis due to above Severe PAD HTN Renal transplantation 2006 -decrease to amiodarone 200mg BID, titrate to daily on discharge. Would only treat for one month total -consolidate to diltiazem 180mg daily -if ok with surgery, anticoagulate with Eliquis or Xarelto Consultation Date/Type/Reason Admit Date/Time September 13, 2018 at 11:48 Initial Consult Date 09/20/18 Type of Consult Cardiology Date/Time of Note DATE: 09/23/18 TIME: 10:33 24 HR Interval Summary Free Text/Dictation No events. Remains in sinus. No complaints Exam/Review of Systems Vital Signs Vitals Vital Signs Date Temp Pulse Resp B/P (MAP) Pulse Ox O2 O2 Flow FiO2 Time Delivery Rate 09/23/18 96 08:01 09/23/18 98.0 18 102/57 98 07:43 (72) 09/21/18 Room Air 15:19 Intake and Output 09/22/18 09/22/18 09/23/18 1515:00 23:00 07:00 IntakeIntake Total 720 ml 400 ml 1400 ml OutputOutput Total 1150 ml 350 ml 1500 ml BalanceBalance -430 ml 50 ml -100 ml Exam Constitutional: alert, oriented Psych: no complaints, nl mood/affect Neck: supple; No jvd Respiratory: clear to auscultation; No crackles/rales Cardiovascular: regular rate and rhythm; No edema Gastrointestinal: soft, non-tender; No distended 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: nl mental status, nl speech Labs Result Diagram: 09/23/1851809/23/18518 Results 24hrs Laboratory Tests Test 09/22/18 18:15 09/23/18 05:19 Bedside Glucose 123 White Blood Count 11.2 H Red Blood Count 3.53 L Hemoglobin 9.3 L Hematocrit 29.9 L Mean Corpuscular Volume 84.7 Mean Corpuscular Hemoglobin 26.3 L Mean Corpuscular Hemoglobin Concent 31.1 L Red Cell Distribution Width 16.3 H Platelet Count 292 Mean Platelet Volume 10.2 Immature Granulocytes % 1.700 H Neutrophils % 73.8 Lymphocytes % 8.1 L Monocytes % 9.1 Eosinophils % 6.6 Basophils % 0.7 Nucleated Red Blood Cells % 0.0 Immature Granulocytes # 0.190 H Neutrophils # 8.3 H Lymphocytes # 0.9 Monocytes # 1.0 H Eosinophils # 0.7 H Basophils # 0.1 Nucleated Red Blood Cells # 0.0 Sodium Level 142 Potassium Level 3.2 L Chloride Level 113 H Carbon Dioxide Level 24 Anion Gap 5 Blood Urea Nitrogen 12 Creatinine 0.93 Est Glomerular Filtrat Rate mL/min > 60 Glucose Level 106 Calcium Level 8.8 Medications Medications Current Medications Miscellaneous Information (* Miscellaneous Pharmacy Order) DURAMORPH: 0.2 MG SPI... GIVEN NEURAXIAL XX ; Start 09/13/18 at 16:30 IV Flush (NS 3 ml) 3 ml PER PROTOCOL IV ; Start 09/13/18 at 17:00 Acetaminophen (Tylenol Supp) [address] Fever; Start 09/13/18 at 17:00 Ondansetron HCl (Zofran Inj) 4 mg Q4H PRN IV NAUSEA AND/OR VOMITING; Start 09/13/18 at 17:00 Folic Acid (Folic Acid) 1 mg DAILY PO Last administered on 09/23/18at 08:32; A dmin Dose 1 MG; Start 09/14/18 at 09:00 Multivit/Ca Carb/ B Cmplx/FA/Prenat (Flor-Elisa) 1 tab DAILY PO Last administered on 09/23/18 08:54; Admin Dose 1 TAB; Start 09/14/18 at 09:00 Sodium Phosphate (Kphos Neutral) 1,000 mg BID PO Last administered on 09/22/18at 23:37; Admin Dose 1,000 MG; Start 09/13/18 at 21:00 Hydromorphone HCl (Dilaudid) 1 mg Q4H PRN IV SEVERE PAIN LEVEL 7-10 Last administered on 09/19/18 20:15; Admin Dose 1 MG; Start 09/13/18 at 17:30 Calcitriol (Rocaltrol) 0.5 mcg DAILY PO Last administered on 09/23/18 08:31; Admin Dose 0.5 MCG; Start 09/14/18 at 09:00 Tacrolimus (Prograf) 1 mg BID PO Last administered on 09/23/18 08:33; Admin Dose 1 MG; Start 09/13/18 at 22:00 Leflunomide (Arava) 20 mg DAILY PO Last administered on 09/23/18 08:32; Admin Dose 20 MG; Start 09/14/18 at 09:00 Acetaminophen (Tylenol Tab) 650 mg Q6H PRN PO MILD PAIN(1-3)OR ELEVATED TEMP Last administered on 09/17/18 20:44; Admin Dose 650 MG; Start 09/17/18 at 17:00 Levofloxacin/ Dextrose 100 ml @ 100 mls/hr Q24H IVPB Last administered on 09/22/18 18:07; Admin Dose 100 MLS/HR; Start 09/17/18 at 17:30 Metronidazole 100 ml @ 100 mls/hr Q8 IVPB Last administered on 09/23/18 05:44; Admin Dose 100 MLS/HR; Start 09/17/18 at 22:00 Aztreonam 2 gm/ Sodium Chloride 100 ml @ 100 mls/hr Q12 IVPB Last administered on 09/23/18 08:46; Admin Dose 100 MLS/HR; Start 09/17/18 at 21:00 Enoxaparin Sodium (Lovenox) 40 mg DAILY SC Last administered on 09/23/18 08:36; Admin Dose 40 MG; Start 09/19/18 at 09:00 Magnesium Oxide (Mag-Ox 400) 400 mg DAILY PO Last administered on 09/23/18 08:32; Admin Dose 400 MG; Start 09/19/18 at 10:00 Amiodarone HCl (Cordarone) 200 mg BID PO Last administered on 09/23/18 08:44; Admin Dose 200 MG; Start 09/23/18 at 09:00 Diltiazem HCl (Cardizem Cd) 180 mg DAILY PO Last administered on 09/23/18 08:45; Admin Dose 180 MG; Start 09/23/18 at 09:00 Potassium Chloride (Klor-Con 10) 20 meq BID PO Last administered on 09/23/18 08:45; Admin Dose 20 MEQ; Start 09/23/18 at 09:00 YLOI HOROWITZ Sep 23, 2018 10:37
--- NOTE | 2018-09-23 10:41 | QN ---
Documentation Comment L BKA stump open with VAC, good seal, skin looks healthy and viable AFVSS WBC coming down wound cx GNR - antibiotics per ID - VAC change today and 3x/week - will plan to close the wound early next week, the skin looks viable, hopefully will be able to reclose the BKA stump, AMARILIS RIBERA MD Sep 23, 2018 10:41
--- NOTE | 2018-09-23 11:42 | CONS ---
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 - h/o draining wound, necrosis and infection of L TMA site. ESR 121 on 09/12/2018. 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 All the infected tissue was removed by L BKA according to Dr. Cortes progress note - h/o gangrene and infection of L foot - afib with RVR- converted to SR - hypertension - h/o renal transplant at [facility] in 2006, maintained on tacrolimus - immunocompromised status - expected post-op anemia - transaminitis - improving - hypomagnesemia - repleted - adverse reaction to cefazolin (hives), meropenem (pruritus) Recommendations: - continue aztreonam (09/13/2018-), levofloxacin (09/17/2018-), and metronidazole (09/17/2018-) for now - f/u blood cultures 09/17/18 (NGTD), LLE wound cx 09/18/18 (GNR), fungus cx (NGTD), surgical stump biopsy culture (NGTD) - trend WBC and fever curve - both improving - serial procalcitonin - Dr. Cortes planning reconstruction of BKA or proceed with AKA when infection is fully controlled Management d/w patient, his sister at bedside, and with Dr. Bailey via [employer] messaging. Consultation Date/Type/Reason Admit Date/Time September 13, 2018 at 11:48 Initial Consult Date 09/13/18 Type of Consult ID Date/Time of Note DATE: 09/23/18 TIME: 11:39 Detailed Summary Eyes: no complaints ENT: no complaints Respiratory: no complaints; No cough, No pleuritic pain, No shortness of breath, No sputum, No wheezing Cardiovascular: no complaints; No chest pain, No palpitations Gastrointestinal: no complaints; No decreased appetite, No diarrhea, No nausea, No vomiting Genitourinary: no complaints; No dysuria Musculoskeletal: no complaints, other (denies pain L BKA site ) Skin: other (states likely planned wound vac change planned for today, LLE BKA) Neurologic: no complaints Endocrine: no complaints Lymphatic: no complaints Psychological: no complaints, nl mood/affect Exam/Review of Systems Exam Vitals Vital Signs Date Temp Pulse Resp B/P (MAP) Pulse Ox O2 O2 Flow FiO2 Time Delivery Rate 09/23/18 96 08:01 09/23/18 98.0 18 102/57 98 07:43 (72) 09/21/18 Room Air 15:19 Allergies Coded Allergies cefazolin (Verified Allergy, Intermediate, HIVES, 09/14/18) meropenem (Verified Allergy, Intermediate, 09/14/18) pruritus (observed on 09/13/2018) Intake and Output 09/22/18 09/22/18 09/23/18 1515:00 23:00 07:00 IntakeIntake Total 720 ml 400 ml 1400 ml OutputOutput Total 1150 ml 350 ml 1500 ml BalanceBalance -430 ml 50 ml -100 ml Exam Constitutional: alert, well developed Psych: no complaints, nl mood/affect Head: normocephalic, atraumatic Eyes: nl conjunctiva, nl lids, nl sclera ENMT: nl external ears & nose, nl nasal mucosa & septum, mucosa pink and moist (no thrush noted ) Neck: supple, non-tender Respiratory: clear to auscultation, normal air movement Cardiovascular: regular rate and rhythm, nl pulses Gastrointestinal: soft, non-tender, bowel sounds (normoactive ) Genitourinary - Male: other (No f/c) Musculoskeletal: other (L BKA site is wrapped with a c/d/i real bandage, wound vac in place with sanguinous drainage noted, LLE brace on) Extremities: normal pulses; No edema 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: nl mental status, nl speech Skin: nl turgor; No rash or lesions Results Result Diagram: 09/23/1851809/23/18518 Results 24hrs Laboratory Tests Test 09/22/18 18:15 09/23/18 05:19 Bedside Glucose 123 White Blood Count 11.2 H Red Blood Count 3.53 L Hemoglobin 9.3 L Hematocrit 29.9 L Mean Corpuscular Volume 84.7 Mean Corpuscular Hemoglobin 26.3 L Mean Corpuscular Hemoglobin Concent 31.1 L Red Cell Distribution Width 16.3 H Platelet Count 292 Mean Platelet Volume 10.2 Immature Granulocytes % 1.700 H Neutrophils % 73.8 Lymphocytes % 8.1 L Monocytes % 9.1 Eosinophils % 6.6 Basophils % 0.7 Nucleated Red Blood Cells % 0.0 Immature Granulocytes # 0.190 H Neutrophils # 8.3 H Lymphocytes # 0.9 Monocytes # 1.0 H Eosinophils # 0.7 H Basophils # 0.1 Nucleated Red Blood Cells # 0.0 Sodium Level 142 Potassium Level 3.2 L Chloride Level 113 H Carbon Dioxide Level 24 Anion Gap 5 Blood Urea Nitrogen 12 Creatinine 0.93 Est Glomerular Filtrat Rate mL/min > 60 Glucose Level 106 Calcium Level 8.8 Imaging Imaging CXR 09/18/18 IMPRESSION: No significant interval change.. Cardiomegaly and atherosclerotic aorta. Possible small hiatal hernia. Medications Medication Current Medications Miscellaneous Information (* Miscellaneous Pharmacy Order) DURAMORPH: 0.2 MG SPI... GIVEN NEURAXIAL XX ; Start 09/13/18 at 16:30 IV Flush (NS 3 ml) 3 ml PER PROTOCOL IV ; Start 09/13/18 at 17:00 Acetaminophen (Tylenol Supp) 650 mg Q6H PRN [place] Fever; Start 09/13/18 at 17:00 Ondansetron HCl (Zofran Inj) 4 mg Q4H PRN IV NAUSEA AND/OR VOMITING; Start at 17:00 Folic Acid (Folic Acid) 1 mg DAILY PO Last administered on 09/23/18at 08:32; Admin Dose 1 MG; Start 09/14/18 at 09:00 Multivit/Ca Carb/ B Cmplx/FA/Prenat (Flor-Elisa) 1 tab DAILY PO Last administered on 09/23/18at 08:54; Admin Dose 1 TAB; Start 09/14/18 at 09:00 Sodium Phosphate (Kphos Neutral) 1,000 mg BID PO Last administered on 09/22/18at 23:37; Admin Dose 1,000 MG; Start 09/13/18 at 21:00 Hydromorphone HCl (Dilaudid) 1 mg Q4H PRN IV SEVERE PAIN LEVEL 7-10 Last administered on 09/19/18at 20:15; Admin Dose 1 MG; Start 09/13/18 at 17:30 Calcitriol (Rocaltrol) 0.5 mcg DAILY PO Last administered on 09/23/18 08:31; Admin Dose 0.5 MCG; Start 09/14/18 at 09:00 Tacrolimus (Prograf) 1 mg BID PO Last administered on 09/23/18 08:33; Admin Dose 1 MG; Start 09/13/18 at 22:00 Leflunomide (Arava) 20 mg DAILY PO Last administered on 09/23/18 08:32; Admin Dose 20 MG; Start 09/14/18 at 09:00 Acetaminophen (Tylenol Tab) 650 mg Q6H PRN PO MILD PAIN(1-3)OR ELEVATED TEMP Last administered on 09/17/18 20:44; Admin Dose 650 MG; Start 09/17/18 at 17:00 Levofloxacin/ Dextrose 100 ml @ 100 mls/hr Q24H IVPB Last administered on 09/22/18 18:07; Admin Dose 100 MLS/HR; Start 09/17/18 at 17:30 Metronidazole 100 ml @ 100 mls/hr Q8 IVPB Last administered on 09/23/18 05:44; Admin Dose 100 MLS/HR; Start 09/17/18 at 22:00 Aztreonam 2 gm/ Sodium Chloride 100 ml @ 100 mls/hr Q12 IVPB Last administered on 09/23/18 08:46; Admin Dose 100 MLS/HR; Start 09/17/18 at 21:00 Enoxaparin Sodium (Lovenox) 40 mg DAILY SC Last administered on 09/23/18 08:36; Admin Dose 40 MG; Start 09/19/18 at 09:00 Magnesium Oxide (Mag-Ox 400) 400 mg DAILY PO Last administered on 09/23/18 08:32; Admin Dose 400 MG; Start 09/19/18 at 10:00 Amiodarone HCl (Cordarone) 200 mg BID PO Last administered on 09/23/18 08:44; Admin Dose 200 MG; Start 09/23/18 at 09:00 Diltiazem HCl (Cardizem Cd) 180 mg DAILY PO Last administered on 09/23/18 08:45; Admin Dose 180 MG; Start 09/23/18 at 09:00 Potassium Chloride (Klor-Con 10) 20 meq BID PO Last administered on 09/23/18at 08:45; Admin Dose 20 MEQ; Start 09/23/18 at 09:00 WM JOSUE NP Sep 23, 2018 11:42
[2018-09-23] MEDS: SOD PHOS MONO/DIBAS 250 MG TAB PO SCH ×2 (12:58→21:42)
[2018-09-23] MEDS: HYDROmorphONE 1 MG/ML SYG IV PRN (13:54)
--- NOTE | 2018-09-23 13:55 | PN ---
Date/Time of Note Date/Time of Note DATE: 09/23/18 TIME: 13:49 Assessment/Plan VTE Prophylaxis Risk score (from [facility] [place])>0 risk: 10 SCD applied (from [facility] [place]): No SCD contraindicated: other Pharmacological prophylaxis: NA/contraindicated Pharm contraindication: surgical contra Lines/Catheters IV [facility]from [facility] [place]ine Lock Urinary Cath still in place: No Assessment/Plan Assessment/Plan 1. Severe left peripheral artery disease with infected left TMA stump - Vascular consultation appreciated. s/p Urgent left below-knee amputation on 09/13/2018, washout also done - Antibiotics as per ID. cultures noted 2. SVT secondary to A. fib with RVR - Cardiology on board and appreciate recommendations. Will decrease Amio dose and plan to treat for 1 month. Continue Diltiazem - Once cleared by Surgeon and hgb stabilizes, will start NOAC for afib 3. Sepsis with leukocytosis, febrile illness, and lactic acidosis secondary to lower extremity infection- improving - WBC trending down and remains afebrile - wound culture results noted - ID on board for antibiotic recommendations 4. Peripheral vascular disease. - Continue statins - Hold antiplatelets in setting of recent surgery 5. History of renal transplant. - nephrology on board and appreciate recommendations - continue immunosuppressants 6. Normocytic anemia - stable - no need for transfusions at this time 7. HLD - on statin 8. Disposition - Patient showing overall improvement and WBC continues to improve - CM on board for placement - will touch base with vasc regarding starting anticoagulation prior to discharge Result Diagram: 09/23/1851809/23/18518 Results 24hrs Laboratory Tests Test 09/22/18 18:15 09/23/18 05:19 09/23/18 12:30 Bedside Glucose 123 White Blood Count 11.2 H Red Blood Count 3.53 L Hemoglobin 9.3 L Hematocrit 29.9 L Mean Corpuscular Volume 84.7 Mean Corpuscular Hemoglobin 26.3 L Mean Corpuscular 31.1 L Hemoglobin Concent Red Cell Distribution Width 16.3 H Platelet Count 292 Mean Platelet Volume 10.2 Immature Granulocytes % 1.700 H Neutrophils % 73.8 Lymphocytes % 8.1 L Monocytes % 9.1 Eosinophils % 6.6 Basophils % 0.7 Nucleated Red Blood Cells % 0.0 Immature Granulocytes # 0.190 H Neutrophils # 8.3 H Lymphocytes # 0.9 Monocytes # 1.0 H Eosinophils # 0.7 H Basophils # 0.1 Nucleated Red Blood Cells # 0.0 Sodium Level 142 Potassium Level 3.2 L Chloride Level 113 H Carbon Dioxide Level 24 Anion Gap 5 Blood Urea Nitrogen 12 Creatinine 0.93 Est Glomerular Filtrat Rate mL/min > 60 Glucose Level 106 Calcium Level 8.8 Lab Scanned Report REFERENCE LAB Subjective 24 Hr Interval Summary Free Text/Dictation Patient states he's doing well and denies any acute issues. pain controlled and no fevers noted. Exam/Review of Systems Exam Vitals Vital Signs Date Temp Pulse Resp B/P (MAP) Pulse Ox O2 O2 Flow FiO2 Time Delivery Rate 09/23/18 98.0 78 18 131/87 98 12:34 (102) 09/21/18 Room Air 15:19 Intake and Output 09/22/18 09/22/18 09/23/18 1515:00 23:00 07:00 IntakeIntake Total 720 ml 400 ml 1400 ml OutputOutput Total 1150 ml 350 ml 1500 ml BalanceBalance -430 ml 50 ml -100 ml Exam General: no acute distress. answering questions appropriately Neck: supple Chest: nontender CVS: S1, S2, regular rate and rhythm. no murmurs Lungs: clear to auscultation bilaterally. no wheezing or rhonchi Abd: soft, nontender, nondistended. no rebound or guarding. bowel sounds present diffusely Ext: L BKA. no cyanosis, clubbing, or edema SKin: warm, dry. LLE dressing intact Results Results 24hrs Laboratory Tests Test 09/22/18 18:15 09/23/18 05:19 09/23/18 12:30 Bedside Glucose 123 White Blood Count 11.2 H Red Blood Count 3.53 L Hemoglobin 9.3 L Hematocrit 29.9 L Mean Corpuscular Volume 84.7 Mean Corpuscular Hemoglobin 26.3 L Mean Corpuscular 31.1 L Hemoglobin Concent Red Cell Distribution Width 16.3 H Platelet Count 292 Mean Platelet Volume 10.2 Immature Granulocytes % 1.700 H Neutrophils % 73.8 Lymphocytes % 8.1 L Monocytes % 9.1 Eosinophils % 6.6 Basophils % 0.7 Nucleated Red Blood Cells % 0.0 Immature Granulocytes # 0.190 H Neutrophils # 8.3 H Lymphocytes # 0.9 Monocytes # 1.0 H Eosinophils # 0.7 H Basophils # 0.1 Nucleated Red Blood Cells # 0.0 Sodium Level 142 Potassium Level 3.2 L Chloride Level 113 H Carbon Dioxide Level 24 Anion Gap 5 Blood Urea Nitrogen 12 Creatinine 0.93 Est Glomerular Filtrat Rate mL/min > 60 Glucose Level 106 Calcium Level 8.8 Lab Scanned Report REFERENCE LAB Medications Medication Current Medications Miscellaneous Information (* Miscellaneous Pharmacy Order) DURAMORPH: 0.2 MG SPI... GIVEN NEURAXIAL XX ; Start 09/13/18 at 16:30 IV Flush (NS 3 ml) 3 ml PER PROTOCOL IV ; Start 09/13/18 at 17:00 Acetaminophen (Tylenol Supp) 650 mg Q6H PRN [place] Fever; Start 09/13/18 at 17:00 Ondansetron HCl (Zofran Inj) 4 mg Q4H PRN IV NAUSEA AND/OR VOMITING; Start 09/13/18 at 17:00 Folic Acid (Folic Acid) 1 mg DAILY PO Last administered on 09/23/18 08:32; Admin Dose 1 MG; Start 09/14/18 at 09:00 Multivit/Ca Carb/ B Cmplx/FA/Prenat (Flor-Elisa) 1 tab DAILY PO Last administered on 09/23/18 08:54; Admin Dose 1 TAB; Start 09/14/18 at 09:00 Sodium Phosphate (Kphos Neutral) 1,000 mg BID PO Last administered on 09/23/18 12:58; Admin Dose 1,000 MG; Start 09/13/18 at 21:00 Hydromorphone HCl (Dilaudid) 1 mg Q4H PRN IV SEVERE PAIN LEVEL 7-10 Last administered on 09/19/18at 20:15; Admin Dose 1 MG; Start 09/13/18 at 17:30 Calcitriol (Rocaltrol) 0.5 mcg DAILY PO Last administered on 09/23/18 08:31; Admin Dose 0.5 MCG; Start 09/14/18 at 09:00 Tacrolimus (Prograf) 1 mg BID PO Last administered on 09/23/18 08:33; Admin Dose 1 MG; Start 09/13/18 at 22:00 Leflunomide (Arava) 20 mg DAILY PO Last administered on 09/23/18 08:32; Admin Dose 20 MG; Start 09/14/18 at 09:00 Acetaminophen (Tylenol Tab) 650 mg Q6H PRN PO MILD PAIN(1-3)OR ELEVATED TEMP Last administered on 09/17/18 20:44; Admin Dose 650 MG; Start 09/17/18 at 17:00 Levofloxacin/ Dextrose 100 ml @ 100 mls/hr Q24H IVPB Last administered on 09/22/18 18:07; Admin Dose 100 MLS/HR; Start 09/17/18 at 17:30 Metronidazole 100 ml @ 100 mls/hr Q8 IVPB Last administered on 09/23/18 13:43; Admin Dose 100 MLS/HR; Start 09/17/18 at 22:00 Aztreonam 2 gm/ Sodium Chloride 100 ml @ 100 mls/hr Q12 IVPB Last administered on 09/23/18 08:46; Admin Dose 100 MLS/HR; Start 09/17/18 at 21:00 Enoxaparin Sodium (Lovenox) 40 mg DAILY SC Last administered on 09/23/18 08:36; Admin Dose 40 MG; Start 09/19/18 at 09:00 Magnesium Oxide (Mag-Ox 400) 400 mg DAILY PO Last administered on 09/23/18 08:32; Admin Dose 400 MG; Start 09/19/18 at 10:00 Amiodarone HCl (Cordarone) 200 mg BID PO Last administered on 09/23/18 08:44; Admin Dose 200 MG; Start 09/23/18 at 09:00 Diltiazem HCl (Cardizem Cd) 180 mg DAILY PO Last administered on 09/23/18 08:45; Admin Dose 180 MG; Start 09/23/18 at 09:00 Potassium Chloride (Klor-Con 10) 20 meq BID PO Last administered on 09/23/18 08:45; Admin Dose 20 MEQ; Start 09/23/18 at 09:00 ZAN BURKETT MD Sep 23, 2018 13:55
--- NOTE | 2018-09-23 15:13 | EN ---
Date/Time of Note Date/Time of Note DATE: 09/23/18 TIME: 15:12 Event Note Medicine Medicine Event Note I reviewed emr today. I directed care to DENTIST/OWNER. requested gnr result to de-escalate abx joseph. hold off vanco as lens generating machine tender likely not pathogen here. JACKIE ARIAS MD Sep 23, 2018 15:13
[2018-09-23] MEDS ORDERED: CALCIUM CARBONATE 500 MG CHEW TAB PO PRN (15:30)
[2018-09-23] MEDS: LEVOFLOXACIN 500MG/D5W (PMX) 100 ML IVPB SCH (17:41)
[2018-09-23] MEDS: FAMOTIDINE 20 MG TAB PO SCH (21:42)
[2018-09-24] VITALS (11 sets, daily range): BP systolic 118–145; BP diastolic 63–77; PULSE 79–99; RESP 18
[2018-09-24] MEDS: metroNIDAZOLE 500 MG/NS (PMX) 100 ML IVPB SCH ×2 (06:56→14:03)
[2018-09-24] MEDS: AZTREONAM 2 GM in SOD CHLORIDE 0.9% 100 ML IVPB SCH ×2 (09:36→20:29)
[2018-09-24] MEDS: CALCITRIOL 0.25 MCG CAP PO SCH (09:36)
[2018-09-24] MEDS: POTASSIUM CHLORIDE (SR) 10 MEQ TAB PO SCH ×2 (09:37→20:30)
[2018-09-24] MEDS: MAGNESIUM OXIDE 400 MG TAB PO SCH (09:37)
[2018-09-24] MEDS: DILTIAZEM (CD) 180 MG CAP PO SCH (09:37)
[2018-09-24] MEDS: MULTIVIT/CA CARB/B CMPLX/FA TAB PO SCH (09:37)
[2018-09-24] MEDS: AMIODARONE 200 MG TAB PO SCH ×2 (09:38→20:30)
[2018-09-24] MEDS: FAMOTIDINE 20 MG TAB PO SCH ×2 (09:38→20:30)
[2018-09-24] MEDS: FOLIC ACID 1 MG TAB PO SCH (09:38)
[2018-09-24] MEDS: TACROLIMUS 1 MG CAP PO SCH ×2 (09:38→20:30)
[2018-09-24] MEDS: SOD PHOS MONO/DIBAS 250 MG TAB PO SCH ×2 (09:39→20:29)
[2018-09-24] MEDS: LEFLUNOMIDE 20 MG TAB PO SCH (09:39)
[2018-09-24] MEDS: ENOXAPARIN 40 MG/0.4 ML SYG SC SCH (09:51)
[2018-09-24] MEDS ORDERED: MAGNESIUM SULFATE 4 GM/100 ML 100 ML IVPB ONE (10:00)
--- NOTE | 2018-09-24 10:39 | CONS ---
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 - h/o draining wound, necrosis and infection of L TMA site. ESR 121 on 09/12/2018. 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 All the infected tissue was removed by L BKA according to Dr. Cortes progress note - h/o gangrene and infection of L foot - afib with RVR- converted to SR - hypertension - h/o renal transplant at [facility] in 2006, maintained on tacrolimus - immunocompromised status - expected post-op anemia - transaminitis - improving - hypomagnesemia - repleted - adverse reaction to cefazolin (hives), meropenem (pruritus) Recommendations: - continue aztreonam (09/13/2018-), levofloxacin (09/17/2018-), and metronidazole (09/17/2018-) for now - f/u LLE wound cx 09/18/18 (GNR - asked micro to release the speciation joseph), fungus cx (NGTD), surgical stump biopsy culture (NGTD) - trend WBC and fever curve - serial procalcitonin - Dr. Cortes planning reconstruction of BKA or proceed with AKA when infection is fully controlled Management d/w Dr. Bailey via [employer] messaging. Consultation Date/Type/Reason Admit Date/Time September 13, 2018 at 11:48 Initial Consult Date 09/13/18 Type of Consult ID Date/Time of Note DATE: 09/24/18 TIME: 10:35 24 HR Interval Summary Free Text/Dictation remains afebrile, wbc 11.3 today. No acute issues were reported by nursing. Subjective hx not possible: other (patient sleeping soundly at this time) Exam/Review of Systems Exam Vitals Vital Signs Date Temp Pulse Resp B/P (MAP) Pulse Ox O2 O2 Flow FiO2 Time Delivery Rate 09/24/18 93 08:05 09/24/18 98.0 18 143/65 98 07:37 (91) 09/21/18 Room Air 15:19 Allergies Coded Allergies cefazolin (Verified Allergy, Intermediate, HIVES, 09/14/18) meropenem (Verified Allergy, Intermediate, 09/14/18) pruritus (observed on 09/13/2018) Intake and Output 09/23/18 09/23/18 09/24/18 1515:00 23:00 07:00 IntakeIntake Total 250 ml 650 ml OutputOutput Total 300 ml 750 ml BalanceBalance -50 ml -100 ml Exam Constitutional: well developed, other (sleeping soundly currently, In NAD) Psych: no complaints, nl mood/affect Head: normocephalic, atraumatic Eyes: nl conjunctiva, nl lids, nl sclera ENMT: nl external ears & nose, nl nasal mucosa & septum, mucosa pink and moist Neck: supple, non-tender Respiratory: clear to auscultation, normal air movement Cardiovascular: regular rate and rhythm, nl pulses Gastrointestinal: soft, non-tender, bowel sounds (normoactive) Genitourinary - Male: other (No f/c) Musculoskeletal: other (L BKA site is wrapped with a c/d/i real bandage, wound vac in place with small amt of sanguinous drainage noted- reviewed nsg notes/pics in JUN, brace currently off.) Extremities: normal pulses; No edema 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: nl mental status, nl speech Skin: nl turgor; No rash or lesions Results Result Diagram: 09/24/18 0526 09/24/18 0526 Results 24hrs Laboratory Tests Test 09/23/18 12:30 09/24/18 05:26 09/24/18 08:26 Lab Scanned Report REFERENCE LAB White Blood Count 11.3 H Red Blood Count 3.32 L Hemoglobin 9.0 L Hematocrit 28.5 L Mean Corpuscular Volume 85.8 Mean Corpuscular Hemoglobin 27.1 L Mean Corpuscular 31.6 L Hemoglobin Concent Red Cell Distribution Width 16.8 H Platelet Count 287 Mean Platelet Volume 9.4 Immature Granulocytes % 2.800 H Neutrophils % 71.1 Lymphocytes % 8.3 L Monocytes % 10.6 Eosinophils % 6.3 Basophils % 0.9 Nucleated Red Blood Cells % 0.0 Immature Granulocytes # 0.310 H Neutrophils # 8.0 H Lymphocytes # 0.9 Monocytes # 1.2 H Eosinophils # 0.7 H Basophils # 0.1 Nucleated Red Blood Cells # 0.0 Sodium Level 141 Potassium Level 3.8 Chloride Level 114 H Carbon Dioxide Level 23 Anion Gap 4 L Blood Urea Nitrogen 13 Creatinine 1.00 Est Glomerular Filtrat > 60 Rate mL/min Glucose Level 98 Calcium Level 8.8 Phosphorus Level 2.5 Magnesium Level 1.2 L Total Bilirubin 0.3 Direct Bilirubin 0.00 Indirect Bilirubin 0.3 Aspartate Amino Transf (AST/SGOT) 112 H Alanine 55 Aminotransferase (ALT/SGPT) Alkaline Phosphatase 128 H Total Protein 5.6 L Albumin 2.5 L Globulin 3.10 Albumin/Globulin Ratio 0.80 Bedside Glucose 108 Medications Medication Current Medications Miscellaneous Information (* Miscellaneous Pharmacy Order) DURAMORPH: 0.2 MG SPI... GIVEN NEURAXIAL XX ; Start 09/13/18 at 16:30 IV Flush (NS 3 ml) 3 ml PER PROTOCOL IV ; Start 09/13/18 at 17:00 Acetaminophen (Tylenol Supp) 650 mg Q6H PRN [place] Fever; Start 09/13/18 at 17:00 Ondansetron HCl (Zofran Inj) 4 mg Q4H PRN IV NAUSEA AND/OR VOMITING; Start 09/13/18 at 17:00 Folic Acid (Folic Acid) 1 mg DAILY PO Last administered on 09/24/18at 09:38; Admin Dose 1 MG; Start 09/14/18 at 09:00 Multivit/Ca Carb/ B Cmplx/FA/Prenat (Flor-Elisa) 1 tab DAILY PO Last administered on 09/24/18 09:37; Admin Dose 1 TAB; Start 09/14/18 at 09:00 Sodium Phosphate (Kphos Neutral) 1,000 mg BID PO Last administered on 09/24/18 09:39; Admin Dose 1,000 MG; Start 09/13/18 at 21:00 Hydromorphone HCl (Dilaudid) 1 mg Q4H PRN IV SEVERE PAIN LEVEL 7-10 Last administered on 09/23/18at 13:54; Admin Dose 1 MG; Start 09/13/18 at 17:30 Calcitriol (Rocaltrol) 0.5 mcg DAILY PO Last administered on 09/24/18 09:36; Admin Dose 0.5 MCG; Start 09/14/18 at 09:00 Tacrolimus (Prograf) 1 mg BID PO Last administered on 09/24/18 09:38; Admin Dose 1 MG; Start 09/13/18 at 22:00 Leflunomide (Arava) 20 mg DAILY PO Last administered on 09/24/18 09:39; Admin Dose 20 MG; Start 09/14/18 at 09:00 Acetaminophen (Tylenol Tab) 650 mg Q6H PRN PO MILD PAIN(1-3)OR ELEVATED TEMP Last administered on 09/17/18 20:44; Admin Dose 650 MG; Start 09/17/18 at 17:00 Levofloxacin/ Dextrose 100 ml @ 100 mls/hr Q24H IVPB Last administered on 09/23/18 17:41; Admin Dose 100 MLS/HR; Start 09/17/18 at 17:30 Metronidazole 100 ml @ 100 mls/hr Q8 IVPB Last administered on 09/24/18 06:56; Admin Dose 100 MLS/HR; Start 09/17/18 at 22:00 Aztreonam 2 gm/ Sodium Chloride 100 ml @ 100 mls/hr Q12 IVPB Last administered on 09/24/18 09:36; Admin Dose 100 MLS/HR; Start 09/17/18 at 21:00 Enoxaparin Sodium (Lovenox) 40 mg DAILY SC Last administered on 09/24/18 09:51; Admin Dose 40 MG; Start 09/19/18 at 09:00 Magnesium Oxide (Mag-Ox 400) 400 mg DAILY PO Last administered on 09/24/18 09:37; Admin Dose 400 MG; Start 09/19/18 at 10:00 Amiodarone HCl (Cordarone) 200 mg BID PO Last administered on 09/24/18 09:38; Admin Dose 200 MG; Start 09/23/18 at 09:00 Diltiazem HCl (Cardizem Cd) 180 mg DAILY PO Last administered on 09/24/18 09:37; Admin Dose 180 MG; Start 09/23/18 at 09:00 Potassium Chloride (Klor-Con 10) 20 meq BID PO Last administered on 09/24/18 09:37; Admin Dose 20 MEQ; Start 09/23/18 at 09:00 Famotidine (Pepcid) 20 mg BID PO Last administered on 09/24/18at 09:38; Admin Dose 20 MG; Start 09/23/18 at 21:00 Calcium Carbonate (Tums) 500 mg Q4 PRN PO indigestion; Start 09/23/18 at 15:30 Magnesium Sulfate 100 ml @ 25 mls/hr ONCE ONCE IVPB ; Start 09/24/18 at 10:00; Stop 09/24/18 at 13:59 WM JOSUE NP Sep 24, 2018 10:39
[2018-09-24] MEDS ORDERED: MAGNESIUM SULFATE 2 GM/50 ML 50 ML IVPB ONE (13:30)
--- NOTE | 2018-09-24 13:30 | CONS ---
Assessment/Plan Assessment/Plan Hospital Course (Demo Recall) 1. Kidney transplant status. The patient had a cadaveric kidney transplant in 2006. He is on immunosuppressive therapy. His renal function today is back to normal. 2. He is now10 days postop a left below the knee amputation. His left foot was infected and gangrenous. He now has a L stump that is draining dark bloody purulent material . He underwent a second surgery last week. The left stump wound was opened, drained, debrided and washed out. He now has a drain leading to a wound VAC on the left knee stump. 3. Hypertension 4. Peripheral artery disease 5. Anemia 6. Hyperlipidemia. 7. Hypomagnesemia, will replace magnesium today.I suspect he is loosing magnesium through kidney . I have started him on an oral magnesium supplement. 8. Hypokalemia. I will increase his potassium supplements. I will order labs for tomorrow. Consultation Date/Type/Reason Admit Date/Time September 13, 2018 at 11:48 Initial Consult Date 09/13/18 Type of Consult Nephrology Date/Time of Note DATE: 09/24/18 TIME: 13:24 24 HR Interval Summary Free Text/Dictation This patient is being seen in nephrologic follow-up because of a kidney transplant. He is postop a left below the knee amputation because of a gangrenous, infected left foot. He is now about 10 days postop. He seems to be doing well otherwise. Constitutional: no complaints, improved Exam/Review of Systems Exam Vitals Vital Signs Date Temp Pulse Resp B/P (MAP) Pulse Ox O2 O2 Flow FiO2 Time Delivery Rate 09/24/18 98.0 99 18 145/63 98 12:19 (90) 09/21/18 Room Air 15:19 Intake and Output 09/23/18 09/23/18 09/24/18 1515:00 23:00 07:00 IntakeIntake Total 250 ml 650 ml OutputOutput Total 300 ml 750 ml BalanceBalance -50 ml -100 ml Exam He is status post left below the knee amputation with a drain in the left stump going to a wound VAC. Constitutional: alert, oriented, frail Respiratory: clear to auscultation, normal air movement Cardiovascular: regular rate and rhythm Gastrointestinal: soft, non-tender Results Result Diagram: 09/24/1852509/24/18525 Results 24hrs Laboratory Tests Test 09/24/18 05:26 09/24/18 08:26 White Blood Count 11.3 H Red Blood Count 3.32 L Hemoglobin 9.0 L Hematocrit 28.5 L Mean Corpuscular Volume 85.8 Mean Corpuscular Hemoglobin 27.1 L Mean Corpuscular Hemoglobin Concent 31.6 L Red Cell Distribution Width 16.8 H Platelet Count 287 Mean Platelet Volume 9.4 Immature Granulocytes % 2.800 H Neutrophils % 71.1 Lymphocytes % 8.3 L Monocytes % 10.6 Eosinophils % 6.3 Basophils % 0.9 Nucleated Red Blood Cells % 0.0 Immature Granulocytes # 0.310 H Neutrophils # 8.0 H Lymphocytes # 0.9 Monocytes # 1.2 H Eosinophils # 0.7 H Basophils # 0.1 Nucleated Red Blood Cells # 0.0 Sodium Level 141 Potassium Level 3.8 Chloride Level 114 H Carbon Dioxide Level 23 Anion Gap 4 L Blood Urea Nitrogen 13 Creatinine 1.00 Est Glomerular Filtrat Rate mL/min > 60 Glucose Level 98 Calcium Level 8.8 Phosphorus Level 2.5 Magnesium Level 1.2 L Total Bilirubin 0.3 Direct Bilirubin 0.00 Indirect Bilirubin 0.3 Aspartate Amino Transf (AST/SGOT) 112 H Alanine Aminotransferase (ALT/SGPT) 55 Alkaline Phosphatase 128 H Total Protein 5.6 L Albumin 2.5 L Globulin 3.10 Albumin/Globulin Ratio 0.80 Bedside Glucose 108 Medications Medication Current Medications Miscellaneous Information (* Miscellaneous Pharmacy Order) DURAMORPH: 0.2 MG SPI... GIVEN NEURAXIAL XX ; Start 09/13/18 at 16:30 IV Flush (NS 3 ml) 3 ml PER PROTOCOL IV ; Start 09/13/18 at 17:00 Acetaminophen (Tylenol Supp) 650 mg Q6H PRN [place] Fever; Start 09/13/18 at 17:00 Ondansetron HCl (Zofran Inj) 4 mg Q4H PRN IV NAUSEA AND/OR VOMITING; Start at 17:00 Folic Acid (Folic Acid) 1 mg DAILY PO Last administered on 09/24/18at 09:38; Admin Dose 1 MG; Start 09/14/18 at 09:00 Multivit/Ca Carb/ B Cmplx/FA/Prenat (Flor-Elisa) 1 tab DAILY PO Last administered on 09/24/18 09:37; Admin Dose 1 TAB; Start 09/14/18 at 09:00 Sodium Phosphate (Kphos Neutral) 1,000 mg BID PO Last administered on 09/24/18 09:39; Admin Dose 1,000 MG; Start 09/13/18 at 21:00 Hydromorphone HCl (Dilaudid) 1 mg Q4H PRN IV SEVERE PAIN LEVEL 7-10 Last administered on 09/23/18 13:54; Admin Dose 1 MG; Start 09/13/18 at 17:30 Calcitriol (Rocaltrol) 0.5 mcg DAILY PO Last administered on 09/24/18 09:36; Admin Dose 0.5 MCG; Start 09/14/18 at 09:00 Tacrolimus (Prograf) 1 mg BID PO Last administered on 09/24/18 09:38; Admin Dose 1 MG; Start 09/13/18 at 22:00 Leflunomide (Arava) 20 mg DAILY PO Last administered on 09/24/18 09:39; Admin Dose 20 MG; Start 09/14/18 at 09:00 Acetaminophen (Tylenol Tab) 650 mg Q6H PRN PO MILD PAIN(1-3)OR ELEVATED TEMP Last administered on 09/17/18 20:44; Admin Dose 650 MG; Start 09/17/18 at 17:00 Levofloxacin/ Dextrose 100 ml @ 100 mls/hr Q24H IVPB Last administered on 09/23/18 17:41; Admin Dose 100 MLS/HR; Start 09/17/18 at 17:30 Metronidazole 100 ml @ 100 mls/hr Q8 IVPB Last administered on 09/24/18 06:56; Admin Dose 100 MLS/HR; Start 09/17/18 at 22:00 Aztreonam 2 gm/ Sodium Chloride 100 ml @ 100 mls/hr Q12 IVPB Last administered on 09/24/18 09:36; Admin Dose 100 MLS/HR; Start 09/17/18 at 21:00 Enoxaparin Sodium (Lovenox) 40 mg DAILY SC Last administered on 09/24/18 09:51; Admin Dose 40 MG; Start 09/19/18 at 09:00 Magnesium Oxide (Mag-Ox 400) 400 mg DAILY PO Last administered on 09/24/18 09:37; Admin Dose 400 MG; Start 09/19/18 at 10:00 Amiodarone HCl (Cordarone) 200 mg BID PO Last administered on 09/24/18 09:38; Admin Dose 200 MG; Start 09/23/18 at 09:00 Diltiazem HCl (Cardizem Cd) 180 mg DAILY PO Last administered on 09/24/18 09:37; Admin Dose 180 MG; Start 09/23/18 at 09:00 Potassium Chloride (Klor-Con 10) 20 meq BID PO Last administered on 09/24/18 09:37; Admin Dose 20 MEQ; Start 09/23/18 at 09:00 Famotidine (Pepcid) 20 mg BID PO Last administered on 09/24/18 09:38; Admin Dose 20 MG; Start 09/23/18 at 21:00 Calcium Carbonate (Tums) 500 mg Q4 PRN PO indigestion; Start 09/23/18 at 15:30 Magnesium Sulfate 100 ml @ 25 mls/hr ONCE ONCE IVPB ; Start 09/24/18 at 10:00; Stop 09/24/18 at 13:59 ERIN MONTOYA MD Sep 24, 2018 13:30
--- NOTE | 2018-09-24 13:49 | CONS ---
Assessment/Plan Assessment/Plan Hospital Course (Demo Recall) New onset paroxysmal atrial fibrillation with RVR: EF preserved. CHADSVASC 2 for HTN and PAD so should be anticoagulated if ok with surgery. Remains in sinus after amiodarone s/p BKA 09/13/18 Sepsis due to above Severe PAD HTN Renal transplantation 2006 -damiodarone 200mg BID, titrate to daily on discharge. Would only treat for one month total -diltiazem 180mg daily -when ok with surgery, anticoagulate with Eliquis or Xarelto Consultation Date/Type/Reason Admit Date/Time September 13, 2018 at 11:48 Initial Consult Date 09/20/18 Type of Consult Cardiology Date/Time of Note DATE: 09/24/18 TIME: 13:48 24 HR Interval Summary Free Text/Dictation No events. No complaints. Remains in sinus Exam/Review of Systems Vital Signs Vitals Vital Signs Date Temp Pulse Resp B/P (MAP) Pulse Ox O2 O2 Flow FiO2 Time Delivery Rate 09/24/18 98.0 99 18 145/63 98 12:19 (90) 09/21/18 Room Air 15:19 Intake and Output 09/23/18 09/23/18 09/24/18 1515:00 23:00 07:00 IntakeIntake Total 250 ml 650 ml OutputOutput Total 300 ml 750 ml BalanceBalance -50 ml -100 ml Exam Constitutional: alert, oriented Psych: no complaints, nl mood/affect Neck: No jvd Respiratory: clear to auscultation; No diminished breath sounds Gastrointestinal: soft, non-tender; No distended Musculoskeletal: No nl extremities to inspection Labs Result Diagram: 09/24/18 0509/24/18 05 Results 24hrs Laboratory Tests Test 09/24/18 05:26 09/24/18 08:26 White Blood Count 11.3 H Red Blood Count 3.32 L Hemoglobin 9.0 L Hematocrit 28.5 L Mean Corpuscular Volume 85.8 Mean Corpuscular Hemoglobin 27.1 L Mean Corpuscular Hemoglobin Concent 31.6 L Red Cell Distribution Width 16.8 H Platelet Count 287 Mean Platelet Volume 9.4 Immature Granulocytes % 2.800 H Neutrophils % 71.1 Lymphocytes % 8.3 L Monocytes % 10.6 Eosinophils % 6.3 Basophils % 0.9 Nucleated Red Blood Cells % 0.0 Immature Granulocytes # 0.310 H Neutrophils # 8.0 H Lymphocytes # 0.9 Monocytes # 1.2 H Eosinophils # 0.7 H Basophils # 0.1 Nucleated Red Blood Cells # 0.0 Sodium Level 141 Potassium Level 3.8 Chloride Level 114 H Carbon Dioxide Level 23 Anion Gap 4 L Blood Urea Nitrogen 13 Creatinine 1.00 Est Glomerular Filtrat Rate mL/min > 60 Glucose Level 98 Calcium Level 8.8 Phosphorus Level 2.5 Magnesium Level 1.2 L Total Bilirubin 0.3 Direct Bilirubin 0.00 Indirect Bilirubin 0.3 Aspartate Amino Transf (AST/SGOT) 112 H Alanine Aminotransferase (ALT/SGPT) 55 Alkaline Phosphatase 128 H Total Protein 5.6 L Albumin 2.5 L Globulin 3.10 Albumin/Globulin Ratio 0.80 Bedside Glucose 108 Medications Medications Current Medications Miscellaneous Information (* Miscellaneous Pharmacy Order) DURAMORPH: 0.2 MG SPI... GIVEN NEURAXIAL XX ; Start 09/13/18 at 16:30 IV Flush (NS 3 ml) 3 ml PER PROTOCOL IV ; Start 09/13/18 at 17:00 Acetaminophen (Tylenol Supp) 650 mg Q6H PRN [place] Fever; Start 09/13/18 at 17:00 Ondansetron HCl (Zofran Inj) 4 mg Q4H PRN IV NAUSEA AND/OR VOMITING; Start 09/13/18 at 17:00 Folic Acid (Folic Acid) 1 mg DAILY PO Last administered on 09/24/18at 09:38; Admin Dose 1 MG; Start 09/14/18 at 09:00 Multivit/Ca Carb/ B Cmplx/FA/Prenat (Flor-Elisa) 1 tab DAILY PO Last administered on 09/24/18 09:37; Admin Dose 1 TAB; Start 09/14/18 at 09:00 Sodium Phosphate (Kphos Neutral) 1,000 mg BID PO Last administered on 09/24/18 09:39; Admin Dose 1,000 MG; Start 09/13/18 at 21:00 Hydromorphone HCl (Dilaudid) 1 mg Q4H PRN IV SEVERE PAIN LEVEL 7-10 Last administered on 09/23/18at 13:54; Admin Dose 1 MG; Start 09/13/18 at 17:30 Calcitriol (Rocaltrol) 0.5 mcg DAILY PO Last administered on 09/24/18 09:36; Admin Dose 0.5 MCG; Start 09/14/18 at 09:00 Tacrolimus (Prograf) 1 mg BID PO Last administered on 09/24/18 09:38; Admin Dose 1 MG; Start 09/13/18 at 22:00 Leflunomide (Arava) 20 mg DAILY PO Last administered on 09/24/18 09:39; Admin Dose 20 MG; Start 09/14/18 at 09:00 Acetaminophen (Tylenol Tab) 650 mg Q6H PRN PO MILD PAIN(1-3)OR ELEVATED TEMP Last administered on 09/17/18 20:44; Admin Dose 650 MG; Start 09/17/18 at 17:00 Levofloxacin/ Dextrose 100 ml @ 100 mls/hr Q24H IVPB Last administered on 09/23 17:41; Admin Dose 100 MLS/HR; Start 09/17/18 at 17:30 Metronidazole 100 ml @ 100 mls/hr Q8 IVPB Last administered on 09/24/18 06:56; Admin Dose 100 MLS/HR; Start 09/17/18 at 22:00 Aztreonam 2 gm/ Sodium Chloride 100 ml @ 100 mls/hr Q12 IVPB Last administered on 09/24/18 09:36; Admin Dose 100 MLS/HR; Start 09/17/18 at 21:00 Enoxaparin Sodium (Lovenox) 40 mg DAILY SC Last administered on 09/24/18 09:51; Admin Dose 40 MG; Start 09/19/18 at 09:00 Amiodarone HCl (Cordarone) 200 mg BID PO Last administered on 09/24/18 09:38; Admin Dose 200 MG; Start 09/23/18 at 09:00 Diltiazem HCl (Cardizem Cd) 180 mg DAILY PO Last administered on 09/24/18 09:37; Admin Dose 180 MG; Start 09/23/18 at 09:00 Potassium Chloride (Klor-Con 10) 20 meq BID PO Last administered on 09/24/18 09:37; Admin Dose 20 MEQ; Start 09/23/18 at 09:00 Famotidine (Pepcid) 20 mg BID PO Last administered on 09/24/18 09:38; Admin Dose 20 MG; Start 09/23/18 at 21:00 Calcium Carbonate (Tums) 500 mg Q4 PRN PO indigestion; Start 09/23/18 at 15:30 Magnesium Sulfate 100 ml @ 25 mls/hr ONCE ONCE IVPB ; Start 09/24/18 at 10:00; Stop 09/24/18 at 13:59 Magnesium Oxide (Mag-Ox 400) 400 mg BID PO ; Start 09/24/18 at 21:00 Magnesium Sulfate 50 ml @ 25 mls/hr ONCE ONCE IVPB ; Start 09/24/18 at 13:30; Stop 09/24/18 at 15:29 YOLI HOROWITZ Sep 24, 2018 13:49
--- NOTE | 2018-09-24 14:08 | PN ---
Date/Time of Note Date/Time of Note DATE: 09/24/18 TIME: 14:04 Assessment/Plan VTE Prophylaxis Risk score (from [facility])>0 risk: 10 SCD applied (from [facility]): Yes Pharmacological prophylaxis: NA/contraindicated Pharm contraindication: surgical contra Lines/Catheters IV Catheter Type (from [facility]): [place] [facility] Urinary Cath still in place: No Assessment/Plan Assessment/Plan 1. Severe left peripheral artery disease with infected left TMA stump - Vascular consultation appreciated. s/p Urgent left below-knee amputation on 09/13/2018 with washout - Antibiotics as per ID 2. SVT secondary to A. fib with RVR- resolved - Cardiology on board and appreciate recommendations. Will decrease Amio dose to daily at time of discharge and plan to treat for 1 month. Continue Diltiazem - Once cleared by Surgeon and hgb stabilizes, will start NOAC for afib 3. Sepsis with leukocytosis, febrile illness, and lactic acidosis secondary to lower extremity infection- improving - WBC still slightly elevated. remains afebrile - wound culture results noted but - ID on board for antibiotic recommendations 4. Peripheral vascular disease. - Continue statins - Hold antiplatelets in setting of recent surgery 5. History of renal transplant. - nephrology on board and appreciate recommendations - continue immunosuppressants 6. Normocytic anemia - stable - no need for transfusions at this time 7. HLD - on statin 8. Disposition - Will await final ID recommendations for antibiotics - Will touch base with Vascular if any further procedures scheduled while inhouse - give insurance, CM will be unable to find SNF placement Result Diagram: 09/24/18 0509/24/18 0526 Results 24hrs Laboratory Tests Test 09/24/18 05:26 09/24/18 08:26 White Blood Count 11.3 H Red Blood Count 3.32 L Hemoglobin 9.0 L Hematocrit 28.5 L Mean Corpuscular Volume 85.8 Mean Corpuscular Hemoglobin 27.1 L Mean Corpuscular Hemoglobin Concent 31.6 L Red Cell Distribution Width 16.8 H Platelet Count 287 Mean Platelet Volume 9.4 Immature Granulocytes % 2.800 H Neutrophils % 71.1 Lymphocytes % 8.3 L Monocytes % 10.6 Eosinophils % 6.3 Basophils % 0.9 Nucleated Red Blood Cells % 0.0 Immature Granulocytes # 0.310 H Neutrophils # 8.0 H Lymphocytes # 0.9 Monocytes # 1.2 H Eosinophils # 0.7 H Basophils # 0.1 Nucleated Red Blood Cells # 0.0 Sodium Level 141 Potassium Level 3.8 Chloride Level 114 H Carbon Dioxide Level 23 Anion Gap 4 L Blood Urea Nitrogen 13 Creatinine 1.00 Est Glomerular Filtrat Rate mL/min > 60 Glucose Level 98 Calcium Level 8.8 Phosphorus Level 2.5 Magnesium Level 1.2 L Total Bilirubin 0.3 Direct Bilirubin 0.00 Indirect Bilirubin 0.3 Aspartate Amino Transf (AST/SGOT) 112 H Alanine Aminotransferase (ALT/SGPT) 55 Alkaline Phosphatase 128 H Total Protein 5.6 L Albumin 2.5 L Globulin 3.10 Albumin/Globulin Ratio 0.80 Bedside Glucose 108 Subjective 24 Hr Interval Summary Free Text/Dictation Patient doing well and denies any acute issues. No overnight events. Exam/Review of Systems Exam Vitals Vital Signs Date Temp Pulse Resp B/P (MAP) Pulse Ox O2 O2 Flow FiO2 Time Delivery Rate 09/24/18 98.0 99 18 145/63 98 12:19 (90) 09/21/18 Room Air 15:19 Intake and Output 09/23/18 09/23/18 09/24/18 1515:00 23:00 07:00 IntakeIntake Total 250 ml 650 ml OutputOutput Total 300 ml 750 ml BalanceBalance -50 ml -100 ml Exam General: no acute distress. answering questions appropriately CVS: S1, S2, regular rate and rhythm. no murmurs Lungs: clear to auscultation bilaterally. no wheezing or rhonchi Abd: soft, nontender, nondistended. no rebound or guarding. bowel sounds present diffusely Ext: L BKA. no cyanosis, clubbing, or edema SKin: warm, dry. LLE dressing intact Results Results 24hrs Laboratory Tests Test 09/24/18 05:26 09/24/18 08:26 White Blood Count 11.3 H Red Blood Count 3.32 L Hemoglobin 9.0 L Hematocrit 28.5 L Mean Corpuscular Volume 85.8 Mean Corpuscular Hemoglobin 27.1 L Mean Corpuscular Hemoglobin Concent 31.6 L Red Cell Distribution Width 16.8 H Platelet Count 287 Mean Platelet Volume 9.4 Immature Granulocytes % 2.800 H Neutrophils % 71.1 Lymphocytes % 8.3 L Monocytes % 10.6 Eosinophils % 6.3 Basophils % 0.9 Nucleated Red Blood Cells % 0.0 Immature Granulocytes # 0.310 H Neutrophils # 8.0 H Lymphocytes # 0.9 Monocytes # 1.2 H Eosinophils # 0.7 H Basophils # 0.1 Nucleated Red Blood Cells # 0.0 Sodium Level 141 Potassium Level 3.8 Chloride Level 114 H Carbon Dioxide Level 23 Anion Gap 4 L Blood Urea Nitrogen 13 Creatinine 1.00 Est Glomerular Filtrat Rate mL/min > 60 Glucose Level 98 Calcium Level 8.8 Phosphorus Level 2.5 Magnesium Level 1.2 L Total Bilirubin 0.3 Direct Bilirubin 0.00 Indirect Bilirubin 0.3 Aspartate Amino Transf (AST/SGOT) 112 H Alanine Aminotransferase (ALT/SGPT) 55 Alkaline Phosphatase 128 H Total Protein 5.6 L Albumin 2.5 L Globulin 3.10 Albumin/Globulin Ratio 0.80 Bedside Glucose 108 Medications Medication Current Medications Miscellaneous Information (* Miscellaneous Pharmacy Order) DURAMORPH: 0.2 MG SPI... GIVEN NEURAXIAL XX ; Start 09/13/18 at 16:30 IV Flush (NS 3 ml) 3 ml PER PROTOCOL IV ; Start 09/13/18 at 17:00 Acetaminophen (Tylenol Supp) 650 mg Q6H PRN [place] Fever; Start 09/13/18 at 17:00 Ondansetron HCl (Zofran Inj) 4 mg Q4H PRN IV NAUSEA AND/OR VOMITING; Start 09/13/18 at 17:00 Folic Acid (Folic Acid) 1 mg DAILY PO Last administered on 09/24/18at 09:38; Admin Dose 1 MG; Start 09/14/18 at 09:00 Multivit/Ca Carb/ B Cmplx/FA/Prenat (Flor-Elisa) 1 tab DAILY PO Last administered on 09/24/18at 09:37; Admin Dose 1 TAB; Start 09/14/18 at 09:00 Sodium Phosphate (Kphos Neutral) 1,000 mg BID PO Last administered on 09/24/18at 09:39; Admin Dose 1,000 MG; Start 09/13/18 at 21:00 Hydromorphone HCl (Dilaudid) 1 mg Q4H PRN IV SEVERE PAIN LEVEL 7-10 Last administered on 09/23/18at 13:54; Admin Dose 1 MG; Start 09/13/18 at 17:30 Calcitriol (Rocaltrol) 0.5 mcg DAILY PO Last administered on 09/24/18 09:36; Admin Dose 0.5 MCG; Start 09/14/18 at 09:00 Tacrolimus (Prograf) 1 mg BID PO Last administered on 09/24/18 09:38; Admin Dose 1 MG; Start 09/13/18 at 22:00 Leflunomide (Arava) 20 mg DAILY PO Last administered on 09/24/18 09:39; Admin Dose 20 MG; Start 09/14/18 at 09:00 Acetaminophen (Tylenol Tab) 650 mg Q6H PRN PO MILD PAIN(1-3)OR ELEVATED TEMP Last administered on 09/17/18 20:44; Admin Dose 650 MG; Start 09/17/18 at 17:00 Levofloxacin/ Dextrose 100 ml @ 100 mls/hr Q24H IVPB Last administered on 09/23/18 17:41; Admin Dose 100 MLS/HR; Start 09/17/18 at 17:30 Metronidazole 100 ml @ 100 mls/hr Q8 IVPB Last administered on 09/24/18 06:56; Admin Dose 100 MLS/HR; Start 09/17/18 at 22:00 Aztreonam 2 gm/ Sodium Chloride 100 ml @ 100 mls/hr Q12 IVPB Last administered on 09/24/18 09:36; Admin Dose 100 MLS/HR; Start 09/17/18 at 21:00 Enoxaparin Sodium (Lovenox) 40 mg DAILY SC Last administered on 09/24/18 09:51; Admin Dose 40 MG; Start 09/19/18 at 09:00 Amiodarone HCl (Cordarone) 200 mg BID PO Last administered on 09/24/18 09:38; Admin Dose 200 MG; Start 09/23/18 at 09:00 Diltiazem HCl (Cardizem Cd) 180 mg DAILY PO Last administered on 09/24/18 09:37; Admin Dose 180 MG; Start 09/23/18 at 09:00 Potassium Chloride (Klor-Con 10) 20 meq BID PO Last administered on 09/24/18 09:37; Admin Dose 20 MEQ; Start 09/23/18 at 09:00 Famotidine (Pepcid) 20 mg BID PO Last administered on 09/24/18 09:38; Admin Dose 20 MG; Start 09/23/18 at 21:00 Calcium Carbonate (Tums) 500 mg Q4 PRN PO indigestion; Start 09/23/18 at 15:30 Magnesium Oxide (Mag-Ox 400) 400 mg BID PO ; Start 09/24/18 at 21:00 Magnesium Sulfate 50 ml @ 25 mls/hr ONCE ONCE IVPB ; Start 09/24/18 at 13:30; Stop 09/24/18 at 15:29 ZAN BURKETT MD Sep 24, 2018 14:08
[2018-09-24] MEDS: LEVOFLOXACIN 500MG/D5W (PMX) 100 ML IVPB SCH (17:22)
[2018-09-24] MEDS ORDERED: MAGNESIUM OXIDE 400 MG TAB PO SCH (21:00)
[2018-09-24] MEDS: metroNIDAZOLE 500 MG TAB PO SCH (23:12)
[2018-09-25] VITALS (10 sets, daily range): BP systolic 104–121; BP diastolic 55–66; PULSE 90–115; RESP 18–22
[2018-09-25] MEDS: metroNIDAZOLE 500 MG TAB PO SCH ×3 (06:13→21:49)
[2018-09-25] MEDS: LEVOFLOXACIN 500 MG TAB PO SCH (06:13)
--- NOTE | 2018-09-25 07:41 | CONS ---
Assessment/Plan Assessment/Plan Hospital Course (Demo Recall) New onset paroxysmal atrial fibrillation with RVR: EF preserved. CHADSVASC 2 for HTN and PAD so should be anticoagulated if ok with surgery. 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 Would only treat for one month total -diltiazem 180mg daily -when ok with surgery, anticoagulate with Eliquis or Xarelto Consultation Date/Type/Reason Admit Date/Time September 13, 2018 at 11:48 Initial Consult Date 09/20/18 Type of Consult Cardiology Date/Time of Note DATE: 09/25/18 TIME: 07:40 24 HR Interval Summary Free Text/Dictation No events. Remains in sinus. Awaiting placement Exam/Review of Systems Vital Signs Vitals Vital Signs Date Temp Pulse Resp B/P (MAP) Pulse Ox O2 O2 Flow FiO2 Time Delivery Rate 09/25/18 98.0 91 121/61 07:30 (81) 09/24/18 18 96 Room Air 23:42 Intake and Output 09/24/18 09/24/18 09/25/18 1515:00 23:00 07:00 IntakeIntake Total 450 ml 1100 ml 600 ml OutputOutput Total 600 ml 1200 ml 1100 ml BalanceBalance -150 ml -100 ml -500 ml Exam Constitutional: alert, oriented Psych: no complaints, nl mood/affect Head: normocephalic, atraumatic Neck: No jvd Respiratory: clear to auscultation; No crackles/rales, No diminished breath sounds Cardiovascular: regular rate and rhythm, systolic murmur (2/6 LENA); No edema 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: nl mental status, nl speech Labs Result Diagram: 09/25/1852209/24/18 05 Results 24hrs Laboratory Tests Test 09/24/18 08:26 09/25/18 05:23 Bedside Glucose 108 White Blood Count 10.2 Red Blood Count 3.58 L Hemoglobin 9.7 L Hematocrit 31.0 L Mean Corpuscular Volume 86.6 Mean Corpuscular Hemoglobin 27.1 L Mean Corpuscular Hemoglobin Concent 31.3 L Red Cell Distribution Width 17.7 H Platelet Count 293 Mean Platelet Volume 10.0 Immature Granulocytes % 3.500 H Neutrophils % 68.3 Lymphocytes % 9.1 L Monocytes % 10.9 Eosinophils % 6.8 Basophils % 1.4 Nucleated Red Blood Cells % 0.0 Immature Granulocytes # 0.360 H Neutrophils # 7.0 Lymphocytes # 0.9 Monocytes # 1.1 H Eosinophils # 0.7 H Basophils # 0.1 Nucleated Red Blood Cells # 0.0 Medications Medications Current Medications Miscellaneous Information (* Miscellaneous Pharmacy Order) DURAMORPH: 0.2 MG SPI... GIVEN NEURAXIAL XX ; Start 09/13/18 at 16:30 IV Flush (NS 3 ml) 3 ml PER PROTOCOL IV ; Start 09/13/18 at 17:00 Acetaminophen (Tylenol Supp) 650 mg Q6H PRN [place] Fever; Start 09/13/18 at 17:00 Ondansetron HCl (Zofran Inj) 4 mg Q4H PRN IV NAUSEA AND/OR VOMITING; Start 09/13/18 at 17:00 Folic Acid (Folic Acid) 1 mg DAILY PO Last administered on 09/24/18 09:38; Admin Dose 1 MG; Start 09/14/18 at 09:00 Multivit/Ca Carb/ B Cmplx/FA/Prenat (Flor-Elisa) 1 tab DAILY PO Last administered on 09/24/18 09:37; Admin Dose 1 TAB; Start 09/14/18 at 09:00 Sodium Phosphate (Kphos Neutral) 1,000 mg BID PO Last administered on 09/24/18 20:29; Admin Dose 1,000 MG; Start 09/13/18 at 21:00 Hydromorphone HCl (Dilaudid) 1 mg Q4H PRN IV SEVERE PAIN LEVEL 7-10 Last administered on 09/23/18 13:54; Admin Dose 1 MG; Start 09/13/18 at 17:30 Calcitriol (Rocaltrol) 0.5 mcg DAILY PO Last administered on 09/24/18 09:36; Admin Dose 0.5 MCG; Start 09/14/18 at 09:00 Tacrolimus (Prograf) 1 mg BID PO Last administered on 09/24/18 20:30; Admin Dose 1 MG; Start 09/13/18 at 22:00 Leflunomide (Arava) 20 mg DAILY PO Last administered on 09/24/18 09:39; Admin Dose 20 MG; Start 09/14/18 at 09:00 Acetaminophen (Tylenol Tab) 650 mg Q6H PRN PO MILD PAIN(1-3)OR ELEVATED TEMP Last administered on 09/17/18 20:44; Admin Dose 650 MG; Start 09/17/18 at 17:00 Aztreonam 2 gm/ Sodium Chloride 100 ml @ 100 mls/hr Q12 IVPB Last administered on 09/24/18 20:29; Admin Dose 100 MLS/HR; Start 09/17/18 at 21:00 Enoxaparin Sodium (Lovenox) 40 mg DAILY SC Last administered on 09/24/18 09:51; Admin Dose 40 MG; Start 09/19/18 at 09:00 Amiodarone HCl (Cordarone) 200 mg BID PO Last administered on 09/24/18 20:30; Admin Dose 200 MG; Start 09/23/18 at 09:00 Diltiazem HCl (Cardizem Cd) 180 mg DAILY PO Last administered on 09/24/18 09:37; Admin Dose 180 MG; Start 09/23/18 at 09:00 Potassium Chloride (Klor-Con 10) 20 meq BID PO Last administered on 09/24/18 20:30; Admin Dose 20 MEQ; Start 09/23/18 at 09:00 Famotidine (Pepcid) 20 mg BID PO Last administered on 09/24/18 20:30; Admin Dose 20 MG; Start 09/23/18 at 21:00 Calcium Carbonate (Tums) 500 mg Q4 PRN PO indigestion; Start 09/23/18 at 15:30 Magnesium Oxide (Mag-Ox 400) 400 mg BID PO Last administered on 09/24/18 20:30; Admin Dose 400 MG; Start 09/24/18 at 21:00 Metronidazole (Flagyl) 500 mg Q8 PO Last administered on 09/25/18 06:13; Admin Dose 500 MG; Start 09/24/18 at 22:00 Levofloxacin (Levaquin) 500 mg DAILY@06 PO Last administered on 09/25/18 06:13; Admin Dose 500 MG; Start 09/25/18 at 06:00 YOLI HOROWITZ Sep 25, 2018 07:41
[2018-09-25] MEDS ORDERED: MAGNESIUM SULFATE 2 GM/50 ML 50 ML IVPB ONE (08:30)
--- NOTE | 2018-09-25 08:34 | CONS ---
Assessment/Plan Assessment/Plan Hospital Course (Demo Recall) 1. Kidney transplant status. The patient had a cadaveric kidney transplant in 2006. He is on immunosuppressive therapy. His renal function today is back to normal. 2. He is now11 days postop a left below the knee amputation. His left foot was infected and gangrenous. He now has a L stump that is draining dark bloody purulent material . He underwent a second surgery last week. The left stump wound was opened, drained, debrided and washed out. He now has a drain leading to a wound VAC on the left knee stump. 3. Hypertension 4. Peripheral artery disease 5. Anemia , is improving 6. Hyperlipidemia. 7. Hypomagnesemia, will replace magnesium today.I suspect he is loosing magne sium through kidney . I have started him on an oral magnesium supplement. 8. Hypokalemia. Potassium is back to normal. I have increased his potassium supplements. I will order labs for tomorrow. Consultation Date/Type/Reason Admit Date/Time September 13, 2018 at 11:48 Initial Consult Date 09/13/18 Type of Consult Nephrology Date/Time of Note DATE: 09/25/18 TIME: 08:30 24 HR Interval Summary Free Text/Dictation This patient is awake and alert. He has no complaints and is overall doing better. He still has a wound VAC in his left leg stump wound. Constitutional: no complaints, improved Exam/Review of Systems Exam Vitals Vital Signs Date Temp Pulse Resp B/P (MAP) Pulse Ox O2 O2 Flow FiO2 Time Delivery Rate 09/25/18 98.0 91 121/61 07:30 (81) 09/24/18 18 96 Room Air 23:42 Intake and Output 09/24/18 09/24/18 09/25/18 1515:00 23:00 07:00 IntakeIntake Total 450 ml 1100 ml 600 ml OutputOutput Total 600 ml 1200 ml 1100 ml BalanceBalance -150 ml -100 ml -500 ml Exam His left leg is status post a left below the knee amputation. He has a wound VAC to going to a wound VAC machine. Constitutional: alert, oriented, frail Respiratory: clear to auscultation, normal air movement Cardiovascular: regular rate and rhythm Gastrointestinal: soft, non-tender Musculoskeletal: nl extremities to inspection Results Result Diagram: 09/25/18 0523 09/24/18 0526 Results 24hrs Laboratory Tests Test 09/25/18 05:23 White Blood Count 10.2 Red Blood Count 3.58 L Hemoglobin 9.7 L Hematocrit 31.0 L Mean Corpuscular Volume 86.6 Mean Corpuscular Hemoglobin 27.1 L Mean Corpuscular Hemoglobin Concent 31.3 L Red Cell Distribution Width 17.7 H Platelet Count 293 Mean Platelet Volume 10.0 Immature Granulocytes % 3.500 H Neutrophils % 68.3 Lymphocytes % 9.1 L Monocytes % 10.9 Eosinophils % 6.8 Basophils % 1.4 Nucleated Red Blood Cells % 0.0 Immature Granulocytes # 0.360 H Neutrophils # 7.0 Lymphocytes # 0.9 Monocytes # 1.1 H Eosinophils # 0.7 H Basophils # 0.1 Nucleated Red Blood Cells # 0.0 Medications Medication Current Medications Miscellaneous Information (* Miscellaneous Pharmacy Order) DURAMORPH: 0.2 MG SPI... GIVEN NEURAXIAL XX ; Start 09/13/18 at 16:30 IV Flush (NS 3 ml) 3 ml PER PROTOCOL IV ; Start 09/13/18 at 17:00 Acetaminophen (Tylenol Supp) 650 mg Q6H PRN [place] Fever; Start 09/13/18 at 17:00 Ondansetron HCl (Zofran Inj) 4 mg Q4H PRN IV NAUSEA AND/OR VOMITING; Start 09/13/18 at 17:00 Folic Acid (Folic Acid) 1 mg DAILY PO Last administered on 09/24/18at 09:38; Admin Dose 1 MG; Start 09/14/18 at 09:00 Multivit/Ca Carb/ B Cmplx/FA/Prenat (Flor-Elisa) 1 tab DAILY PO Last administered on 09/24/18at 09:37; Admin Dose 1 TAB; Start 09/14/18 at 09:00 Sodium Phosphate (Kphos Neutral) 1,000 mg BID PO Last administered on 09/24/18at 20:29; Admin Dose 1,000 MG; Start 09/13/18 at 21:00 Hydromorphone HCl (Dilaudid) 1 mg Q4H PRN IV SEVERE PAIN LEVEL 7-10 Last administered on 09/23/18at 13:54; Admin Dose 1 MG; Start 09/13/18 at 17:30 Calcitriol (Rocaltrol) 0.5 mcg DAILY PO Last administered on 09/24/18 09:36; Admin Dose 0.5 MCG; Start 09/14/18 at 09:00 Tacrolimus (Prograf) 1 mg BID PO Last administered on 09/24/18 20:30; Admin Dose 1 MG; Start 09/13/18 at 22:00 Leflunomide (Arava) 20 mg DAILY PO Last administered on 09/24/18 09:39; Admin Dose 20 MG; Start 09/14/18 at 09:00 Acetaminophen (Tylenol Tab) 650 mg Q6H PRN PO MILD PAIN(1-3)OR ELEVATED TEMP Last administered on 09/17/18 20:44; Admin Dose 650 MG; Start 09/17/18 at 17:00 Aztreonam 2 gm/ Sodium Chloride 100 ml @ 100 mls/hr Q12 IVPB Last administered on 09/24/18 20:29; Admin Dose 100 MLS/HR; Start 09/17/18 at 21:00 Enoxaparin Sodium (Lovenox) 40 mg DAILY SC Last administered on 09/24/18 09:51; Admin Dose 40 MG; Start 09/19/18 at 09:00 Amiodarone HCl (Cordarone) 200 mg BID PO Last administered on 09/24/18 20:30; Admin Dose 200 MG; Start 09/23/18 at 09:00 Diltiazem HCl (Cardizem Cd) 180 mg DAILY PO Last administered on 09/24/18 09:37; Admin Dose 180 MG; Start 09/23/18 at 09:00 Potassium Chloride (Klor-Con 10) 20 meq BID PO Last administered on 09/24/18 20:30; Admin Dose 20 MEQ; Start 09/23/18 at 09:00 Famotidine (Pepcid) 20 mg BID PO Last administered on 09/24/18 20:30; Admin Dose 20 MG; Start 09/23/18 at 21:00 Calcium Carbonate (Tums) 500 mg Q4 PRN PO indigestion; Start 09/23/18 at 15:30 Metronidazole (Flagyl) 500 mg Q8 PO Last administered on 09/25/18 06:13; Admin Dose 500 MG; Start 09/24/18 at 22:00 Levofloxacin (Levaquin) 500 mg DAILY@06 PO Last administered on 09/25/18at 06:13; Admin Dose 500 MG; Start 09/25/18 at 06:00 Magnesium Oxide (Mag-Ox 400) 400 mg TID PO ; Start 09/25/18 at 09:00 Magnesium Sulfate 50 ml @ 25 mls/hr ONCE ONCE IVPB ; Start 09/25/18 at 08:30; Stop 09/25/18 at 10:29 ERIN MONTOYA MD Sep 25, 2018 08:34
--- NOTE | 2018-09-25 08:58 | CONS ---
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 - h/o draining wound, necrosis and infection of L TMA site. ESR 121 on 09/12/2018. 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 All the infected tissue was removed by L BKA according to Dr. Cortes progress note - h/o gangrene and infection of L foot - afib with RVR- converted to SR - hypertension - h/o renal transplant at [facility] in 2006, maintained on tacrolimus - immunocompromised status - expected post-op anemia - transaminitis - improving - hypomagnesemia - repleted - adverse reaction to cefazolin (hives), meropenem (pruritus) Recommendations: - d/c aztreonam (09/13/2018-), - cont levofloxacin (09/17/2018-), and metronidazole (09/17/2018-) for stump infection probably to complete 2 weeks total - He will need vigilant and close id f/u to ensure no recurrent infectious process; if this can be ensured then abx course can be shorter as OM unlikely - trend WBC and fever curve -- Dr. Cortes planning reconstruction of BKA or proceed with AKA when infection is fully controlled; if aka then likely will not need more abx afterwards I directed grips yesterday via [employer] messaging. Consultation Date/Type/Reason Admit Date/Time September 13, 2018 at 11:48 Initial Consult Date 09/13/18 Date/Time of Note DATE: 09/25/18 TIME: 08:53 Exam/Review of Systems Exam Vitals Vital Signs Date Temp Pulse Resp B/P (MAP) Pulse Ox O2 O2 Flow FiO2 Time Delivery Rate 09/25/18 98.0 91 121/61 07:30 (81) 09/24/18 18 96 Room Air 23:42 Intake and Output 09/24/18 09/24/18 09/25/18 1414:59 22:59 06:59 IntakeIntake Total 450 ml 1100 ml 600 ml OutputOutput Total 600 ml 1200 ml 1100 ml BalanceBalance -150 ml -100 ml -500 ml Constitutional: alert, oriented, well developed Psych: no complaints, nl mood/affect Head: normocephalic, atraumatic Eyes: nl conjunctiva, EOMI, nl lids, nl sclera, PERRL Respiratory: clear to auscultation, normal air movement Cardiovascular: regular rate and rhythm, nl pulses Musculoskeletal: nl extremities to inspection, nl gait and stance 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: [employer] II-XII intact, nl mental status, nl speech, nl strength Results Result Diagram: 09/25/18 0523 09/24/18 0526 Results 24hrs Laboratory Tests Test 09/25/18 05:23 White Blood Count 10.2 Red Blood Count 3.58 L Hemoglobin 9.7 L Hematocrit 31.0 L Mean Corpuscular Volume 86.6 Mean Corpuscular Hemoglobin 27.1 L Mean Corpuscular Hemoglobin Concent 31.3 L Red Cell Distribution Width 17.7 H Platelet Count 293 Mean Platelet Volume 10.0 Immature Granulocytes % 3.500 H Neutrophils % 68.3 Lymphocytes % 9.1 L Monocytes % 10.9 Eosinophils % 6.8 Basophils % 1.4 Nucleated Red Blood Cells % 0.0 Immature Granulocytes # 0.360 H Neutrophils # 7.0 Lymphocytes # 0.9 Monocytes # 1.1 H Eosinophils # 0.7 H Basophils # 0.1 Nucleated Red Blood Cells # 0.0 Medications Medication Current Medications Miscellaneous Information (* Miscellaneous Pharmacy Order) DURAMORPH: 0.2 MG SPI... GIVEN NEURAXIAL XX ; Start 09/13/18 at 16:30 IV Flush (NS 3 ml) 3 ml PER PROTOCOL IV ; Start 09/13/18 at 17:00 Acetaminophen (Tylenol Supp) 650 mg Q6H PRN [place] Fever; Start 09/13/18 at 17:00 Ondansetron HCl (Zofran Inj) 4 mg Q4H PRN IV NAUSEA AND/OR VOMITING; Start 09/13/18 at 17:00 Folic Acid (Folic Acid) 1 mg DAILY PO Last administered on 09/24/18at 09:38; Admin Dose 1 MG; Start 09/14/18 at 09:00 Multivit/Ca Carb/ B Cmplx/FA/Prenat (Flor-Elisa) 1 tab DAILY PO Last administered on 09/24/18 09:37; Admin Dose 1 TAB; Start 09/14/18 at 09:00 Sodium Phosphate (Kphos Neutral) 1,000 mg BID PO Last administered on 09/24/18 20:29; Admin Dose 1,000 MG; Start 09/13/18 at 21:00 Hydromorphone HCl (Dilaudid) 1 mg Q4H PRN IV SEVERE PAIN LEVEL 7-10 Last administered on 09/23/18 13:54; Admin Dose 1 MG; Start 09/13/18 at 17:30 Calcitriol (Rocaltrol) 0.5 mcg DAILY PO Last administered on 09/24/18 09:36; Admin Dose 0.5 MCG; Start 09/14/18 at 09:00 Tacrolimus (Prograf) 1 mg BID PO Last administered on 09/24/18 20:30; Admin Do se 1 MG; Start 09/13/18 at 22:00 Leflunomide (Arava) 20 mg DAILY PO Last administered on 09/24/18 09:39; Admin Dose 20 MG; Start 09/14/18 at 09:00 Acetaminophen (Tylenol Tab) 650 mg Q6H PRN PO MILD PAIN(1-3)OR ELEVATED TEMP Last administered on 09/17/18 20:44; Admin Dose 650 MG; Start 09/17/18 at 17:00 Enoxaparin Sodium (Lovenox) 40 mg DAILY SC Last administered on 09/24/18 09:51; Admin Dose 40 MG; Start 09/19/18 at 09:00 Amiodarone HCl (Cordarone) 200 mg BID PO Last administered on 09/24/18 20:30; Admin Dose 200 MG; Start 09/23/18 at 09:00 Diltiazem HCl (Cardizem Cd) 180 mg DAILY PO Last administered on 09/24/18 09:37; Admin Dose 180 MG; Start 09/23/18 at 09:00 Potassium Chloride (Klor-Con 10) 20 meq BID PO Last administered on 09/24/18 20:30; Admin Dose 20 MEQ; Start 09/23/18 at 09:00 Famotidine (Pepcid) 20 mg BID PO Last administered on 09/24/18 20:30; Admin Dose 20 MG; Start 09/23/18 at 21:00 Calcium Carbonate (Tums) 500 mg Q4 PRN PO indigestion; Start 09/23/18 at 15:30 Metronidazole (Flagyl) 500 mg Q8 PO Last administered on 09/25/18at 06:13; Admin Dose 500 MG; Start 09/24/18 at 22:00 Levofloxacin (Levaquin) 500 mg DAILY@06 PO Last administered on 09/25/18at 06:13; Admin Dose 500 MG; Start 09/25/18 at 06:00 Magnesium Oxide (Mag-Ox 400) 400 mg TID PO ; Start 09/25/18 at 09:00 Magnesium Sulfate 50 ml @ 25 mls/hr ONCE ONCE IVPB ; Start 09/25/18 at 08:30; Stop 09/25/18 at 10:29 JACKIE ARIAS MD Sep 25, 2018 08:58
[2018-09-25] MEDS: CALCITRIOL 0.25 MCG CAP PO SCH (09:16)
[2018-09-25] MEDS: SOD PHOS MONO/DIBAS 250 MG TAB PO SCH ×2 (09:16→21:49)
[2018-09-25] MEDS: POTASSIUM CHLORIDE (SR) 10 MEQ TAB PO SCH ×2 (09:17→21:50)
[2018-09-25] MEDS: TACROLIMUS 1 MG CAP PO SCH ×2 (09:17→21:49)
[2018-09-25] MEDS: MULTIVIT/CA CARB/B CMPLX/FA TAB PO SCH (09:17)
[2018-09-25] MEDS: FAMOTIDINE 20 MG TAB PO SCH ×2 (09:18→21:50)
[2018-09-25] MEDS: MAGNESIUM OXIDE 400 MG TAB PO SCH ×3 (09:18→21:49)
[2018-09-25] MEDS: AMIODARONE 200 MG TAB PO SCH ×2 (09:18→21:49)
[2018-09-25] MEDS: FOLIC ACID 1 MG TAB PO SCH (09:18)
[2018-09-25] MEDS: DILTIAZEM (CD) 180 MG CAP PO SCH (09:18)
[2018-09-25] MEDS: LEFLUNOMIDE 20 MG TAB PO SCH (09:18)
[2018-09-25] MEDS: ENOXAPARIN 40 MG/0.4 ML SYG SC SCH (09:29)
--- NOTE | 2018-09-25 12:28 | QN ---
Documentation Comment No c/o. Eating well. AFVSS L BKA stump with VAC in place, good seal, minimal serous drainage WBC 10 wound cx - Bacteroides species - antibiotics per ID - VAC change today and Sunday - will plan for debridement and possible closure next week AMARILIS RIBERA MD Sep 25, 2018 12:28
[2018-09-25] MEDS: HYDROmorphONE 1 MG/ML SYG IV PRN (13:54)
--- NOTE | 2018-09-25 14:23 | PN ---
Date/Time of Note Date/Time of Note DATE: 09/25/18 TIME: 14:11 Assessment/Plan VTE [place] [facility] [place]: 11 [place] [facility] [place] Yes Pharmacological prophylaxis: NA/contraindicated Pharm contraindication: surgical contra Lines/Catheters IV [facility]ter Type [facility]from [facility] [place] Urinary Cath still in place: No Assessment/Plan Assessment/Plan 1. Severe left peripheral artery disease with infected left TMA stump - Vascular consultation appreciated. s/p Urgent left below-knee amputation on 09/13/2018 with washout. - Antibiotics as per ID 2. SVT secondary to A. fib with RVR- resolved - Cardiology on board and appreciate recommendations. Continue current medications and titrate to amiodarone daily at time of discharge for 1 month du ration. - Once cleared by Surgeon, will start NOAC for afib 3. Sepsis with leukocytosis, febrile illness, and lactic acidosis secondary to lower extremity infection- improving - WBC normalized - wound culture results noted - ID on board for antibiotic recommendations 4. Peripheral vascular disease. - Continue statins 5. History of renal transplant. - nephrology on board and appreciate recommendations - continue immunosuppressants - Cr remains stable 6. Normocytic anemia - stable - no need for transfusions at this time 7. HLD - on statin 8. Disposition - Further plan on care based on recommendations from Vascular surgery Result Diagram: 09/25/18 0523 09/24/18 0526 Results 24hrs Laboratory Tests Test 09/25/18 05:23 White Blood Count 10.2 Red Blood Count 3.58 L Hemoglobin 9.7 L Hematocrit 31.0 L Mean Corpuscular Volume 86.6 Mean Corpuscular Hemoglobin 27.1 L Mean Corpuscular Hemoglobin Concent 31.3 L Red Cell Distribution Width 17.7 H Platelet Count 293 Mean Platelet Volume 10.0 Immature Granulocytes % 3.500 H Neutrophils % 68.3 Lymphocytes % 9.1 L Monocytes % 10.9 Eosinophils % 6.8 Basophils % 1.4 Nucleated Red Blood Cells % 0.0 Immature Granulocytes # 0.360 H Neutrophils # 7.0 Lymphocytes # 0.9 Monocytes # 1.1 H Eosinophils # 0.7 H Basophils # 0.1 Nucleated Red Blood Cells # 0.0 Subjective 24 Hr Interval Summary Free Text/Dictation Patient denies any acute issues. Discussed possible plan of care for L stump and concerned if he will need further amputation. Denies any fevers, chills. Exam/Review of Systems Exam Vitals Vital Signs Date Temp Pulse Resp B/P (MAP) Pulse Ox O2 O2 Flow FiO2 Time Delivery Rate 09/25/18 97.6 96 22 104/55 96 Room Air 12:05 (71) Intake and Output 09/24/18 09/24/18 09/25/18 1515:00 23:00 07:00 IntakeIntake Total 450 ml 1100 ml 600 ml OutputOutput Total 600 ml 1200 ml 1100 ml BalanceBalance -150 ml -100 ml -500 ml Exam General: no acute distress. answering questions appropriately CVS: S1, S2, regular rate and rhythm. no murmurs Lungs: clear to auscultation bilaterally. no wheezing or rhonchi Abd: soft, nontender, nondistended. no rebound or guarding. bowel sounds present diffusely Ext: L BKA. no cyanosis, clubbing, or edema SKin: warm, dry. LLE dressing intact with wound vac in place Results Results 24hrs Laboratory Tests Test 09/25/18 05:23 White Blood Count 10.2 Red Blood Count 3.58 L Hemoglobin 9.7 L Hematocrit 31.0 L Mean Corpuscular Volume 86.6 Mean Corpuscular Hemoglobin 27.1 L Mean Corpuscular Hemoglobin Concent 31.3 L Red Cell Distribution Width 17.7 H Platelet Count 293 Mean Platelet Volume 10.0 Immature Granulocytes % 3.500 H Neutrophils % 68.3 Lymphocytes % 9.1 L Monocytes % 10.9 Eosinophils % 6.8 Basophils % 1.4 Nucleated Red Blood Cells % 0.0 Immature Granulocytes # 0.360 H Neutrophils # 7.0 Lymphocytes # 0.9 Monocytes # 1.1 H Eosinophils # 0.7 H Basophils # 0.1 Nucleated Red Blood Cells # 0.0 Medications Medication Current Medications Miscellaneous Information (* Miscellaneous Pharmacy Order) DURAMORPH: 0.2 MG SPI... GIVEN NEURAXIAL XX ; Start 09/13/18 at 16:30 IV Flush (NS 3 ml) 3 ml PER PROTOCOL IV ; Start 09/13/18 at 17:00 Acetaminophen (Tylenol Supp) 650 mg Q6H PRN [place] Fever; Start 09/13/18 at 17:00 Ondansetron HCl (Zofran Inj) 4 mg Q4H PRN IV NAUSEA AND/OR VOMITING; Start 09/13/18 at 17:00 Folic Acid (Folic Acid) 1 mg DAILY PO Last administered on 09/25/18 09:18; Admin Dose 1 MG; Start 09/14/18 at 09:00 Multivit/Ca Carb/ B Cmplx/FA/Prenat (Flor-Elisa) 1 tab DAILY PO Last administered on 09/25/18 09:17; Admin Dose 1 TAB; Start 09/14/18 at 09:00 Sodium Phosphate (Kphos Neutral) 1,000 mg BID PO Last administered on 09/25/18 09:16; Admin Dose 1,000 MG; Start 09/13/18 at 21:00 Hydromorphone HCl (Dilaudid) 1 mg Q4H PRN IV SEVERE PAIN LEVEL 7-10 Last administered on 09/25/18 13:54; Admin Dose 1 MG; Start 09/13/18 at 17:30 Calcitriol (Rocaltrol) 0.5 mcg DAILY PO Last administered on 09/25/18 09:16; Admin Dose 0.5 MCG; Start 09/14/18 at 09:00 Tacrolimus (Prograf) 1 mg BID PO Last administered on 09/25/18 09:17; Admin Dose 1 MG; Start 09/13/18 at 22:00 Leflunomide (Arava) 20 mg DAILY PO Last administered on 09/25/18 09:18; Admin Dose 20 MG; Start 09/14/18 at 09:00 Acetaminophen (Tylenol Tab) 650 mg Q6H PRN PO MILD PAIN(1-3)OR ELEVATED TEMP Last administered on 09/17/18 20:44; Admin Dose 650 MG; Start 09/17/18 at 17:00 Enoxaparin Sodium (Lovenox) 40 mg DAILY SC Last administered on 09/25/18 09:29; Admin Dose 40 MG; Start 09/19/18 at 09:00 Amiodarone HCl (Cordarone) 200 mg BID PO Last administered on 09/25/18 09:18; Admin Dose 200 MG; Start 09/23/18 at 09:00 Diltiazem HCl (Cardizem Cd) 180 mg DAILY PO Last administered on 09/25/18 09:18; Admin Dose 180 MG; Start 09/23/18 at 09:00 Potassium Chloride (Klor-Con 10) 20 meq BID PO Last administered on 09/25/18 09:17; Admin Dose 20 MEQ; Start 09/23/18 at 09:00 Famotidine (Pepcid) 20 mg BID PO Last administered on 09/25/18at 09:18; Admin Dose 20 MG; Start 09/23/18 at 21:00 Calcium Carbonate (Tums) 500 mg Q4 PRN PO indigestion; Start 09/23/18 at 15:30 Metronidazole (Flagyl) 500 mg Q8 PO Last administered on 09/25/18at 13:10; Admin Dose 500 MG; Start 09/24/18 at 22:00 Levofloxacin (Levaquin) 500 mg DAILY@06 PO Last administered on 09/25/18at 06:13; Admin Dose 500 MG; Start 09/25/18 at 06:00 Magnesium Oxide (Mag-Ox 400) 400 mg TID PO Last administered on 09/25/18at 13:1 0; Admin Dose 400 MG; Start 09/25/18 at 09:00 ZAN BURKETT MD Sep 25, 2018 14:23
[2018-09-26] VITALS (12 sets, daily range): BP systolic 109–139; BP diastolic 57–81; PULSE 68–105; RESP 16–20
[2018-09-26] MEDS: HYDROmorphONE 1 MG/ML SYG IV PRN (01:54)
[2018-09-26] MEDS: LEVOFLOXACIN 500 MG TAB PO SCH (05:37)
[2018-09-26] MEDS: metroNIDAZOLE 500 MG TAB PO SCH ×3 (05:37→21:06)
--- NOTE | 2018-09-26 08:44 | CONS ---
Assessment/Plan Assessment/Plan Hospital Course (Demo Recall) 1. Kidney transplant status. The patient had a cadaveric kidney transplant in 2006. He is on immunosuppressive therapy. His renal function today is back to normal. 2. He is now 12 days postop a left below the knee amputation. His left foot was infected and gangrenous. He now has a L stump that is draining dark bloody purulent material . He underwent a second surgery last week. The left stump wound was opened, drained, debrided and washed out. He now has a drain leading to a wound VAC on the left knee stump. 3. Hypertension 4. Peripheral artery disease 5. Anemia , is improving 6. Hyperlipidemia. 7. Hypomagnesemia, will replace magnesium today.I suspect he is loosing magn esium through kidney . I have started him on an oral magnesium supplement and I have had to increase the dose to 4 times a day because of continued low serum magnesium level. 8. Hypokalemia. Potassium is back to normal. I have increased his potassium supplements. I will order labs for tomorrow. Consultation Date/Type/Reason Admit Date/Time September 13, 2018 at 11:48 Initial Consult Date 09/13/18 Type of Consult Nephrology Date/Time of Note DATE: 09/26/18 TIME: 08:38 24 HR Interval Summary Free Text/Dictation Patient is awake and alert today. He is sitting up on the edge of the bed eating breakfast. He denies any new problems or pain. Constitutional: no complaints, improved Exam/Review of Systems Exam Vitals Vital Signs Date Temp Pulse Resp B/P (MAP) Pulse Ox O2 O2 Flow FiO2 Time Delivery Rate 09/26/18 Room Air 07:58 09/26/18 97.9 97 20 135/57 98 07:15 (83) Intake and Output 09/25/18 09/25/18 09/26/18 1515:00 23:00 07:00 IntakeIntake Total 720 ml OutputOutput Total 700 ml BalanceBalance 20 ml Exam The left leg is status post a left below the knee amputation with a drain leading to a wound VAC. Constitutional: alert, oriented, frail Respiratory: clear to auscultation, normal air movement Cardiovascular: regular rate and rhythm Results Result Diagram: 09/26/18 0543 09/26/18 0543 Results 24hrs Laboratory Tests Test 09/26/18 05:43 White Blood Count 11.7 H Red Blood Count 4.05 L Hemoglobin 10.8 L Hematocrit 34.9 L Mean Corpuscular Volume 86.2 Mean Corpuscular Hemoglobin 26.7 L Mean Corpuscular Hemoglobin Concent 30.9 L Red Cell Distribution Width 18.9 H Platelet Count 320 Mean Platelet Volume 9.8 Immature Granulocytes % 4.000 H Neutrophils % 68.0 Lymphocytes % 10.7 L Monocytes % 10.3 Eosinophils % 5.8 Basophils % 1.2 Nucleated Red Blood Cells % 0.0 Immature Granulocytes # 0.470 H Neutrophils # 7.9 H Lymphocytes # 1.3 Monocytes # 1.2 H Eosinophils # 0.7 H Basophils # 0.1 Nucleated Red Blood Cells # 0.0 Sodium Level 141 Potassium Level 4.4 Chloride Level 113 H Carbon Dioxide Level 23 Anion Gap 5 Blood Urea Nitrogen 13 Creatinine 1.10 Est Glomerular Filtrat Rate mL/min > 60 Glucose Level 110 Calcium Level 9.8 Phosphorus Level 3.2 Magnesium Level 1.6 L Total Bilirubin 0.4 Direct Bilirubin 0.00 Indirect Bilirubin 0.4 Aspartate Amino Transf (AST/SGOT) 74 H Alanine Aminotransferase (ALT/SGPT) 49 Alkaline Phosphatase 148 H Total Protein 6.4 Albumin 2.9 L Globulin 3.50 H Albumin/Globulin Ratio 0.82 Medications Medication Current Medications Miscellaneous Information (* Miscellaneous Pharmacy Order) DURAMORPH: 0.2 MG SPI... GIVEN NEURAXIAL XX ; Start 09/13/18 at 16:30 IV Flush (NS 3 ml) 3 ml PER PROTOCOL IV ; Start 09/13/18 at 17:00 Acetaminophen (Tylenol Supp) 650 mg Q6H PRN [place] Fever; Start 09/13/18 at 17:00 Ondansetron HCl (Zofran Inj) 4 mg Q4H PRN IV NAUSEA AND/OR VOMITING; Start 09/13/18 at 17:00 Folic Acid (Folic Acid) 1 mg DAILY PO Last administered on 09/25/18at 09:18; Admin Dose 1 MG; Start 09/14/18 at 09:00 Multivit/Ca Carb/ B Cmplx/FA/Prenat (Flor-Elisa) 1 tab DAILY PO Last administered on 09/25/18at 09:17; Admin Dose 1 TAB; Start 09/14/18 at 09:00 Sodium Phosphate (Kphos Neutral) 1,000 mg BID PO Last administered on 09/25/18 21:49; Admin Dose 1,000 MG; Start 09/13/18 at 21:00 Hydromorphone HCl (Dilaudid) 1 mg Q4H PRN IV SEVERE PAIN LEVEL 7-10 Last administered on 09/26/18 01:54; Admin Dose 1 MG; Start 09/13/18 at 17:30 Calcitriol (Rocaltrol) 0.5 mcg DAILY PO Last administered on 09/25/18 09:16; Admin Dose 0.5 MCG; Start 09/14/18 at 09:00 Tacrolimus (Prograf) 1 mg BID PO Last administered on 09/25/18 21:49; Admin Dose 1 MG; Start 09/13/18 at 22:00 Leflunomide (Arava) 20 mg DAILY PO Last administered on 09/25/18 09:18; Admin Dose 20 MG; Start 09/14/18 at 09:00 Acetaminophen (Tylenol Tab) 650 mg Q6H PRN PO MILD PAIN(1-3)OR ELEVATED TEMP Last administered on 09/17/18 20:44; Admin Dose 650 MG; Start 09/17/18 at 17:00 Enoxaparin Sodium (Lovenox) 40 mg DAILY SC Last administered on 09/25/18 09:29; Admin Dose 40 MG; Start 09/19/18 at 09:00 Amiodarone HCl (Cordarone) 200 mg BID PO Last administered on 09/25/18 21:49; Admin Dose 200 MG; Start 09/23/18 at 09:00 Diltiazem HCl (Cardizem Cd) 180 mg DAILY PO Last administered on 09/25/18 09:18; Admin Dose 180 MG; Start 09/23/18 at 09:00 Potassium Chloride (Klor-Con 10) 20 meq BID PO Last administered on 09/25/18 21:50; Admin Dose 20 MEQ; Start 09/23/18 at 09:00 Famotidine (Pepcid) 20 mg BID PO Last administered on 09/25/18 21:50; Admin Dose 20 MG; Start 09/23/18 at 21:00 Calcium Carbonate (Tums) 500 mg Q4 PRN PO indigestion; Start 09/23/18 at 15:30 Metronidazole (Flagyl) 500 mg Q8 PO Last administered on 09/26/18at 05:37; Admin Dose 500 MG; Start 09/24/18 at 22:00 Levofloxacin (Levaquin) 500 mg DAILY@06 PO Last administered on 09/26/18at 05:37; Admin Dose 500 MG; Start 09/25/18 at 06:00 Magnesium Oxide (Mag-Ox 400) 400 mg TID PO Last administered on 09/25/18at 21:49; Admin Dose 400 MG; Start 09/25/18 at 09:00 ERIN MONTOYA MD Sep 26, 2018 08:44
[2018-09-26] MEDS: MULTIVIT/CA CARB/B CMPLX/FA TAB PO SCH (09:33)
[2018-09-26] MEDS: CALCITRIOL 0.25 MCG CAP PO SCH (09:33)
[2018-09-26] MEDS: POTASSIUM CHLORIDE (SR) 10 MEQ TAB PO SCH ×2 (09:33→21:06)
[2018-09-26] MEDS: MAGNESIUM OXIDE 400 MG TAB PO SCH ×4 (09:33→21:06)
[2018-09-26] MEDS: FOLIC ACID 1 MG TAB PO SCH (09:33)
[2018-09-26] MEDS: TACROLIMUS 1 MG CAP PO SCH ×2 (09:33→21:06)
[2018-09-26] MEDS: FAMOTIDINE 20 MG TAB PO SCH ×2 (09:34→21:07)
[2018-09-26] MEDS: DILTIAZEM (CD) 180 MG CAP PO SCH (09:34)
[2018-09-26] MEDS: LEFLUNOMIDE 20 MG TAB PO SCH (09:34)
--- NOTE | 2018-09-26 09:37 | CONS ---
Assessment/Plan Assessment/Plan Hospital Course (Demo Recall) New onset paroxysmal atrial fibrillation with RVR: EF preserved. CHADSVASC 2 for HTN and PAD so should be anticoagulated if ok with surgery. Remains in sinus after amiodarone s/p BKA 09/13/18 Sepsis due to above Severe PAD HTN Renal transplantation 2006 -change to amiodarone 200mg daily. Would only treat for one month total -diltiazem 180mg daily -when ok with surgery, anticoagulate with Eliquis or Xarelto Consultation Date/Type/Reason Admit Date/Time September 13, 2018 at 11:48 Initial Consult Date 09/20/18 Type of Consult Cardiology Date/Time of Note DATE: 09/26/18 TIME: 09:35 24 HR Interval Summary Free Text/Dictation No events. Remains in sinus Exam/Review of Systems Vital Signs Vitals Vital Signs Date Temp Pulse Resp B/P (MAP) Pulse Ox O2 O2 Flow FiO2 Time Delivery Rate 09/26/18 Room Air 07:58 09/26/18 97.9 97 20 135/57 98 07:15 (83) Intake and Output 09/25/18 09/25/18 09/26/18 1515:00 23:00 07:00 IntakeIntake Total 720 ml OutputOutput Total 700 ml BalanceBalance 20 ml Exam Constitutional: alert, oriented Psych: no complaints, nl mood/affect Head: normocephalic, atraumatic Neck: supple; No jvd Respiratory: clear to auscultation; No crackles/rales Cardiovascular: regular rate and rhythm; No edema Gastrointestinal: soft, non-tender; No distended Labs Result Diagram: 09/26/18 0543 09/26/18 0543 Results 24hrs Laboratory Tests Test 09/25/18 18:00 09/26/18 05:43 Urine Random Creatinine 56.40 White Blood Count 11.7 H Red Blood Count 4.05 L Hemoglobin 10.8 L Hematocrit 34.9 L Mean Corpuscular Volume 86.2 Mean Corpuscular Hemoglobin 26.7 L Mean Corpuscular Hemoglobin Concent 30.9 L Red Cell Distribution Width 18.9 H Platelet Count 320 Mean Platelet Volume 9.8 Immature Granulocytes % 4.000 H Neutrophils % 68.0 Lymphocytes % 10.7 L Monocytes % 10.3 Eosinophils % 5.8 Basophils % 1.2 Nucleated Red Blood Cells % 0.0 Immature Granulocytes # 0.470 H Neutrophils # 7.9 H Lymphocytes # 1.3 Monocytes # 1.2 H Eosinophils # 0.7 H Basophils # 0.1 Nucleated Red Blood Cells # 0.0 Sodium Level 141 Potassium Level 4.4 Chloride Level 113 H Carbon Dioxide Level 23 Anion Gap 5 Blood Urea Nitrogen 13 Creatinine 1.10 Est Glomerular Filtrat Rate mL/min > 60 Glucose Level 110 Calcium Level 9.8 Phosphorus Level 3.2 Magnesium Level 1.6 L Total Bilirubin 0.4 Direct Bilirubin 0.00 Indirect Bilirubin 0.4 Aspartate Amino Transf (AST/SGOT) 74 H Alanine Aminotransferase (ALT/SGPT) 49 Alkaline Phosphatase 148 H Total Protein 6.4 Albumin 2.9 L Globulin 3.50 H Albumin/Globulin Ratio 0.82 Medications Medications Current Medications Miscellaneous Information (* Miscellaneous Pharmacy Order) DURAMORPH: 0.2 MG SPI... GIVEN NEURAXIAL XX ; Start 09/13/18 at 16:30 IV Flush (NS 3 ml) 3 ml PER PROTOCOL IV ; Start 09/13/18 at 17:00 Acetaminophen (Tylenol Supp) 650 mg Q6H PRN [place] Fever; Start 09/13/18 at 17:00 Ondansetron HCl (Zofran Inj) 4 mg Q4H PRN IV NAUSEA AND/OR VOMITING; Start 09/13/18 at 17:00 Folic Acid (Folic Acid) 1 mg DAILY PO Last administered on 09/25/18at 09:18; Admin Dose 1 MG; Start 09/14/18 at 09:00 Multivit/Ca Carb/ B Cmplx/FA/Prenat (Flor-Elisa) 1 tab DAILY PO Last administered on 09/25/18at 09:17; Admin Dose 1 TAB; Start 09/14/18 at 09:00 Sodium Phosphate (Kphos Neutral) 1,000 mg BID PO Last administered on 09/25/18at 21:49; Admin Dose 1,000 MG; Start 09/13/18 at 21:00 Hydromorphone HCl (Dilaudid) 1 mg Q4H PRN IV SEVERE PAIN LEVEL 7-10 Last administered on 09/26/18at 01:54; Admin Dose 1 MG; Start 09/13/18 at 17:30 Calcitriol (Rocaltrol) 0.5 mcg DAILY PO Last administered on 09/25/18 09:16; Admin Dose 0.5 MCG; Start 09/14/18 at 09:00 Tacrolimus (Prograf) 1 mg BID PO Last administered on 09/25/18 21:49; Admin Dose 1 MG; Start 09/13/18 at 22:00 Leflunomide (Arava) 20 mg DAILY PO Last administered on 09/25/18 09:18; Admin Dose 20 MG; Start 09/14/18 at 09:00 Acetaminophen (Tylenol Tab) 650 mg Q6H PRN PO MILD PAIN(1-3)OR ELEVATED TEMP Last administered on 09/17/18 20:44; Admin Dose 650 MG; Start 09/17/18 at 17:00 Enoxaparin Sodium (Lovenox) 40 mg DAILY SC Last administered on 09/25/18 09:29; Admin Dose 40 MG; Start 09/19/18 at 09:00 Amiodarone HCl (Cordarone) 200 mg BID PO Last administered on 09/25/18 21:49; Admin Dose 200 MG; Start 09/23/18 at 09:00 Diltiazem HCl (Cardizem Cd) 180 mg DAILY PO Last administered on 09/25/18 09:18; Admin Dose 180 MG; Start 09/23/18 at 09:00 Potassium Chloride (Klor-Con 10) 20 meq BID PO Last administered on 09/25/18 21:50; Admin Dose 20 MEQ; Start 09/23/18 at 09:00 Famotidine (Pepcid) 20 mg BID PO Last administered on 09/25/18 21:50; Admin Dose 20 MG; Start 09/23/18 at 21:00 Calcium Carbonate (Tums) 500 mg Q4 PRN PO indigestion; Start 09/23/18 at 15:30 Metronidazole (Flagyl) 500 mg Q8 PO Last administered on 09/26/18 05:37; Admin Dose 500 MG; Start 09/24/18 at 22:00 Levofloxacin (Levaquin) 500 mg DAILY@06 PO Last administered on 09/26/18 05:37; Admin Dose 500 MG; Start 09/25/18 at 06:00 Magnesium Oxide (Mag-Ox 400) 400 mg QID PO ; Start 09/26/18 at 09:00 YOLI HOROWITZ 13, 2019 09:37
[2018-09-26] MEDS: ENOXAPARIN 40 MG/0.4 ML SYG SC SCH (09:48)
[2018-09-26] MEDS: AMIODARONE 200 MG TAB PO SCH (10:00)
[2018-09-26] MEDS: SOD PHOS MONO/DIBAS 250 MG TAB PO SCH ×2 (10:30→21:06)
--- NOTE | 2018-09-26 12:54 | PN ---
Date/Time of Note Date/Time of Note DATE: 09/26/18 TIME: 12:50 Assessment/Plan VTE Prophylaxis Risk score (from Ns)>0 risk: 6 SCD applied (from Ns): Yes Pharmacological prophylaxis: LMWH Lines/Catheters IV Catheter Type (from Nrs): Saline Lock Urinary Cath still in place: No Assessment/Plan Assessment/Plan 1. Severe left peripheral artery disease with infected left TMA stump - Vascular consultation appreciated. s/p Urgent left below-knee amputation on 09/13/2018 with washout. - Antibiotics as per ID 2. SVT secondary to A. fib with RVR- resolved - Cardiology on board and appreciate recommendations. Continue current medications and titrate to amiodarone daily. Plan to treat for 1 month duration. - Once cleared by Surgeon, will start NOAC for afib. Will have revision of stump next week so hold off for now 3. Sepsis with leukocytosis, febrile illness, and lactic acidosis secondary to lower extremity infection- improving - wound culture results noted - ID on board for antibiotic recommendations 4. Peripheral vascular disease. - Continue statins 5. History of renal transplant. - nephrology on board and appreciate recommendations - continue immunosuppressants - Cr remains stable 6. Normocytic anemia - stable - no need for transfusions at this time 7. HLD - on statin 8. Disposition - Plans for stump revision with Vasc Surgery next week. continue current plan of care Result Diagram: 09/26/18 0543 09/26/18 0543 Results 24hrs Laboratory Tests Test 09/25/18 18:00 09/26/18 05:43 Urine Random Creatinine 56.40 White Blood Count 11.7 H Red Blood Count 4.05 L Hemoglobin 10.8 L Hematocrit 34.9 L Mean Corpuscular Volume 86.2 Mean Corpuscular Hemoglobin 26.7 L Mean Corpuscular Hemoglobin Concent 30.9 L Red Cell Distribution Width 18.9 H Platelet Count 320 Mean Platelet Volume 9.8 Immature Granulocytes % 4.000 H Neutrophils % 68.0 Lymphocytes % 10.7 L Monocytes % 10.3 Eosinophils % 5.8 Basophils % 1.2 Nucleated Red Blood Cells % 0.0 Immature Granulocytes # 0.470 H Neutrophils # 7.9 H Lymphocytes # 1.3 Monocytes # 1.2 H Eosinophils # 0.7 H Basophils # 0.1 Nucleated Red Blood Cells # 0.0 Sodium Level 141 Potassium Level 4.4 Chloride Level 113 H Carbon Dioxide Level 23 Anion Gap 5 Blood Urea Nitrogen 13 Creatinine 1.10 Est Glomerular Filtrat Rate mL/min > 60 Glucose Level 110 Calcium Level 9.8 Phosphorus Level 3.2 Magnesium Level 1.6 L Total Bilirubin 0.4 Direct Bilirubin 0.00 Indirect Bilirubin 0.4 Aspartate Amino Transf (AST/SGOT) 74 H Alanine Aminotransferase (ALT/SGPT) 49 Alkaline Phosphatase 148 H Total Protein 6.4 Albumin 2.9 L Globulin 3.50 H Albumin/Globulin Ratio 0.82 Subjective 24 Hr Interval Summary Free Text/Dictation Patient states he's doing well and denies any acute issues. No overnight eden nts. Exam/Review of Systems Exam Vitals Vital Signs Date Temp Pulse Resp B/P (MAP) Pulse Ox O2 O2 Flow FiO2 Time Delivery Rate 09/26/18 Room Air 12:11 09/26/18 97.9 99 20 109/78 99 11:21 (88) Intake and Output 09/25/18 09/25/18 09/26/18 1515:00 23:00 07:00 IntakeIntake Total 720 ml OutputOutput Total 700 ml BalanceBalance 20 ml Exam General: no acute distress. answering questions appropriately CVS: S1, S2, regular rate and rhythm. no murmurs Lungs: clear to auscultation bilaterally. no wheezing or rhonchi Abd: soft, nontender, nondistended. no rebound or guarding. bowel sounds present diffusely Ext: L BKA. no cyanosis, clubbing, or edema SKin: warm, dry. LLE dressing intact with wound vac in place Results Results 24hrs Laboratory Tests Test 09/25/18 18:00 09/26/18 05:43 Urine Random Creatinine 56.40 White Blood Count 11.7 H Red Blood Count 4.05 L Hemoglobin 10.8 L Hematocrit 34.9 L Mean Corpuscular Volume 86.2 Mean Corpuscular Hemoglobin 26.7 L Mean Corpuscular Hemoglobin Concent 30.9 L Red Cell Distribution Width 18.9 H Platelet Count 320 Mean Platelet Volume 9.8 Immature Granulocytes % 4.000 H Neutrophils % 68.0 Lymphocytes % 10.7 L Monocytes % 10.3 Eosinophils % 5.8 Basophils % 1.2 Nucleated Red Blood Cells % 0.0 Immature Granulocytes # 0.470 H Neutrophils # 7.9 H Lymphocytes # 1.3 Monocytes # 1.2 H Eosinophils # 0.7 H Basophils # 0.1 Nucleated Red Blood Cells # 0.0 Sodium Level 141 Potassium Level 4.4 Chloride Level 113 H Carbon Dioxide Level 23 Anion Gap 5 Blood Urea Nitrogen 13 Creatinine 1.10 Est Glomerular Filtrat Rate mL/min > 60 Glucose Level 110 Calcium Level 9.8 Phosphorus Level 3.2 Magnesium Level 1.6 L Total Bilirubin 0.4 Direct Bilirubin 0.00 Indirect Bilirubin 0.4 Aspartate Amino Transf (AST/SGOT) 74 H Alanine Aminotransferase (ALT/SGPT) 49 Alkaline Phosphatase 148 H Total Protein 6.4 Albumin 2.9 L Globulin 3.50 H Albumin/Globulin Ratio 0.82 Medications Medication Current Medications Miscellaneous Information (* Miscellaneous Pharmacy Order) DURAMORPH: 0.2 MG SP I... GIVEN NEURAXIAL XX ; Start 09/13/18 at 16:30 IV Flush (NS 3 ml) 3 ml PER PROTOCOL IV ; Start 09/13/18 at 17:00 Acetaminophen (Tylenol Supp) 650 mg Q6H PRN [place] Fever; Start 09/13/18 at 17:00 Ondansetron HCl (Zofran Inj) 4 mg Q4H PRN IV NAUSEA AND/OR VOMITING; Start 09/13/18 at 17:00 Folic Acid (Folic Acid) 1 mg DAILY PO Last administered on 09/26/18 09:33; Admin Dose 1 MG; Start 09/14/18 at 09:00 Multivit/Ca Carb/ B Cmplx/FA/Prenat (Flor-Elisa) 1 tab DAILY PO Last administered on 09/26/18 09:33; Admin Dose 1 TAB; Start 09/14/18 at 09:00 Sodium Phosphate (Kphos Neutral) 1,000 mg BID PO Last administered on 09/26/18 10:30; Admin Dose 1,000 MG; Start 09/13/18 at 21:00 Hydromorphone HCl (Dilaudid) 1 mg Q4H PRN IV SEVERE PAIN LEVEL 7-10 Last administered on 09/26/18at 01:54; Admin Dose 1 MG; Start 09/13/18 at 17:30 Calcitriol (Rocaltrol) 0.5 mcg DAILY PO Last administered on 09/26/18 09:33; Admin Dose 0.5 MCG; Start 09/14/18 at 09:00 Tacrolimus (Prograf) 1 mg BID PO Last administered on 09/26/18 09:33; Admin Dose 1 MG; Start 09/13/18 at 22:00 Leflunomide (Arava) 20 mg DAILY PO Last administered on 09/26/18 09:34; Admin Dose 20 MG; Start 09/14/18 at 09:00 Acetaminophen (Tylenol Tab) 650 mg Q6H PRN PO MILD PAIN(1-3)OR ELEVATED TEMP Last administered on 09/17/18 20:44; Admin Dose 650 MG; Start 09/17/18 at 17:00 Enoxaparin Sodium (Lovenox) 40 mg DAILY SC Last administered on 09/26/18 09:48; Admin Dose 40 MG; Start 09/19/18 at 09:00 Diltiazem HCl (Cardizem Cd) 180 mg DAILY PO Last administered on 09/26/18 09:34; Admin Dose 180 MG; Start 09/23/18 at 09:00 Potassium Chloride (Klor-Con 10) 20 meq BID PO Last administered on 09/26/18 09:33; Admin Dose 20 MEQ; Start 09/23/18 at 09:00 Famotidine (Pepcid) 20 mg BID PO Last administered on 09/26/18 09:34; Admin Dose 20 MG; Start 09/23/18 at 21:00 Calcium Carbonate (Tums) 500 mg Q4 PRN PO indigestion; Start 09/23/18 at 15:30 Metronidazole (Flagyl) 500 mg Q8 PO Last administered on 09/26/18 05:37; Admin Dose 500 MG; Start 09/24/18 at 22:00 Levofloxacin (Levaquin) 500 mg DAILY@06 PO Last administered on 09/26/18 05:37; Admin Dose 500 MG; Start 09/25/18 at 06:00 Magnesium Oxide (Mag-Ox 400) 400 mg QID PO Last administered on 09/26/18 09:33; Admin Dose 400 MG; Start 09/26/18 at 09:00 Amiodarone HCl (Cordarone) 200 mg DAILY PO ; Start 09/26/18 at 10:00 ZAN BURKETT MD Sep 26, 2018 12:54
--- NOTE | 2018-09-26 14:40 | CONS ---
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 CoNS is a likely colonizer - h/o draining wound, necrosis and infection of L TMA site. ESR 121 on 09/12/2018. 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 All the infected tissue was removed by L BKA according to Dr. Cortes progress note - h/o gangrene and infection of L foot - afib with RVR- converted to SR - hypertension - h/o renal transplant at [facility] in 2006, maintained on tacrolimus - immunocompromised status - expected post-op anemia - transaminitis - improving - hypomagnesemia - repleted - adverse reaction to cefazolin (hives), meropenem (pruritus) Recommendations: - Continue levofloxacin (09/17/2018-) and metronidazole (09/17/2018-) for stump infection probably to complete 2 weeks total; s/p aztreonam (09/13/2018- 09/24/2018) - Trend WBC and fever curve (uptick in WBC noted but remains afebrile) - Pt will need vigilant and close ID f/u to ensure no recurrent infectious process; if this can be ensured then abx course can be shorter as OM unlikely - Dr. Cortes planning debridement and possible closure next week; if AKA then likely will not need more abx afterwards Management d/w patient, XAVIER Almaguer, and with Dr. Bailey Consultation Date/Type/Reason Admit Date/Time September 13, 2018 at 11:48 Initial Consult Date 09/13/18 Type of Consult Infectious Disease Date/Time of Note DATE: 09/26/18 TIME: 14:38 24 HR Interval Summary Free Text/Dictation Pt c/o mild LLE stump pain rating 3-4/10. No acute issues per d/w nursing. Exam/Review of Systems Exam Vitals Vital Signs Date Temp Pulse Resp B/P (MAP) Pulse Ox O2 O2 Flow FiO2 Time Delivery Rate 6/13/19 Room Air 12:11 09/26/18 97.9 99 20 109/78 99 11:21 (88) Intake and Output 09/25/18 09/25/18 09/26/18 1515:00 23:00 07:00 IntakeIntake Total 720 ml OutputOutput Total 700 ml BalanceBalance 20 ml Exam Constitutional: alert, oriented, well developed (just finished eating in NAD) Psych: no complaints, nl mood/affect Head: normocephalic, atraumatic Eyes: nl conjunctiva, nl lids, nl sclera ENMT: nl external ears & nose, nl nasal mucosa & septum, mucosa pink and moist (no thrush) Neck: supple Respiratory: clear to auscultation, normal air movement (stable on room air) Cardiovascular: regular rate and rhythm; nl pulses Gastrointestinal: soft, non-tender, bowel sounds (normoactive) No distended Genitourinary - Male: other (No Don) Musculoskeletal: other (L BKA wrapped with KATHIE bandage and connected to wound VAC) Extremities: normal pulses; No edema 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: nl mental status, nl speech Skin: nl turgor; No rash or lesions Results Result Diagram: 09/26/18 0543 09/26/18 0543 Results 24hrs Laboratory Tests Test 09/25/18 18:00 09/26/18 05:43 Urine Random Creatinine 56.40 White Blood Count 11.7 H Red Blood Count 4.05 L Hemoglobin 10.8 L Hematocrit 34.9 L Mean Corpuscular Volume 86.2 Mean Corpuscular Hemoglobin 26.7 L Mean Corpuscular Hemoglobin Concent 30.9 L Red Cell Distribution Width 18.9 H Platelet Count 320 Mean Platelet Volume 9.8 Immature Granulocytes % 4.000 H Neutrophils % 68.0 Lymphocytes % 10.7 L Monocytes % 10.3 Eosinophils % 5.8 Basophils % 1.2 Nucleated Red Blood Cells % 0.0 Immature Granulocytes # 0.470 H Neutrophils # 7.9 H Lymphocytes # 1.3 Monocytes # 1.2 H Eosinophils # 0.7 H Basophils # 0.1 Nucleated Red Blood Cells # 0.0 Sodium Level 141 Potassium Level 4.4 Chloride Level 113 H Carbon Dioxide Level 23 Anion Gap 5 Blood Urea Nitrogen 13 Creatinine 1.10 Est Glomerular Filtrat Rate mL/min > 60 Glucose Level 110 Calcium Level 9.8 Phosphorus Level 3.2 Magnesium Level 1.6 L Total Bilirubin 0.4 Direct Bilirubin 0.00 Indirect Bilirubin 0.4 Aspartate Amino Transf (AST/SGOT) 74 H Alanine Aminotransferase (ALT/SGPT) 49 Alkaline Phosphatase 148 H Total Protein 6.4 Albumin 2.9 L Globulin 3.50 H Albumin/Globulin Ratio 0.82 Medications Medication Current Medications Miscellaneous Information (* Miscellaneous Pharmacy Order) DURAMORPH: 0.2 MG SPI... GIVEN NEURAXIAL XX ; Start 09/13/18 at 16:30 IV Flush (NS 3 ml) 3 ml PER PROTOCOL IV ; Start 09/13/18 at 17:00 Acetaminophen (Tylenol Supp) 650 mg Q6H PRN [place] Fever; Start 09/13/18 at 17:00 Ondansetron HCl (Zofran Inj) 4 mg Q4H PRN IV NAUSEA AND/OR VOMITING; Start 09/13/18 at 17:00 Folic Acid (Folic Acid) 1 mg DAILY PO Last administered on 09/26/18 09:33; Admin Dose 1 MG; Start 09/14/18 at 09:00 Multivit/Ca Carb/ B Cmplx/FA/Prenat (Flor-Elisa) 1 tab DAILY PO Last administered on 09/26/18 09:33; Admin Dose 1 TAB; Start 09/14/18 at 09:00 Sodium Phosphate (Kphos Neutral) 1,000 mg BID PO Last administered on 09/26/18 10:30; Admin Dose 1,000 MG; Start 09/13/18 at 21:00 Hydromorphone HCl (Dilaudid) 1 mg Q4H PRN IV SEVERE PAIN LEVEL 7-10 Last administered on 09/26/18 01:54; Admin Dose 1 MG; Start 09/13/18 at 17:30 Calcitriol (Rocaltrol) 0.5 mcg DAILY PO Last administered on 09/26/18 09:33; Admin Dose 0.5 MCG; Start 09/14/18 at 09:00 Tacrolimus (Prograf) 1 mg BID PO Last administered on 09/26/18 09:33; Admin Do se 1 MG; Start 09/13/18 at 22:00 Leflunomide (Arava) 20 mg DAILY PO Last administered on 09/26/18 09:34; Admin Dose 20 MG; Start 09/14/18 at 09:00 Acetaminophen (Tylenol Tab) 650 mg Q6H PRN PO MILD PAIN(1-3)OR ELEVATED TEMP Last administered on 09/17/18 20:44; Admin Dose 650 MG; Start 09/17/18 at 17:00 Enoxaparin Sodium (Lovenox) 40 mg DAILY SC Last administered on 09/26/18 09:48; Admin Dose 40 MG; Start 09/19/18 at 09:00 Diltiazem HCl (Cardizem Cd) 180 mg DAILY PO Last administered on 09/26/18 09:34; Admin Dose 180 MG; Start 09/23/18 at 09:00 Potassium Chloride (Klor-Con 10) 20 meq BID PO Last administered on 09/26/18 09:33; Admin Dose 20 MEQ; Start 09/23/18 at 09:00 Famotidine (Pepcid) 20 mg BID PO Last administered on 09/26/18 09:34; Admin Dose 20 MG; Start 09/23/18 at 21:00 Calcium Carbonate (Tums) 500 mg Q4 PRN PO indigestion; Start 09/23/18 at 15:30 Metronidazole (Flagyl) 500 mg Q8 PO Last administered on 09/26/18 13:48; Admin Dose 500 MG; Start 09/24/18 at 22:00 Levofloxacin (Levaquin) 500 mg DAILY@06 PO Last administered on 09/26/18 05:37; Admin Dose 500 MG; Start 09/25/18 at 06:00 Magnesium Oxide (Mag-Ox 400) 400 mg QID PO Last administered on 09/26/18 13:46 ; Admin Dose 400 MG; Start 09/26/18 at 09:00 Amiodarone HCl (Cordarone) 200 mg DAILY PO ; Start 09/26/18 at 10:00 ROSALBA MARTI NP Sep 26, 2018 14:40
[2018-09-27] VITALS (12 sets, daily range): BP systolic 103–148; BP diastolic 47–99; PULSE 95–126; RESP 18–20
[2018-09-27] MEDS: LEVOFLOXACIN 500 MG TAB PO SCH (06:44)
[2018-09-27] MEDS: metroNIDAZOLE 500 MG TAB PO SCH ×3 (06:44→21:58)
[2018-09-27] MEDS: FOLIC ACID 1 MG TAB PO SCH (08:24)
[2018-09-27] MEDS: CALCITRIOL 0.25 MCG CAP PO SCH (08:24)
[2018-09-27] MEDS: LEFLUNOMIDE 20 MG TAB PO SCH (08:24)
[2018-09-27] MEDS: MULTIVIT/CA CARB/B CMPLX/FA TAB PO SCH (08:24)
[2018-09-27] MEDS: SOD PHOS MONO/DIBAS 250 MG TAB PO SCH ×2 (08:25→21:57)
[2018-09-27] MEDS: TACROLIMUS 1 MG CAP PO SCH ×2 (08:25→22:00)
[2018-09-27] MEDS: AMIODARONE 200 MG TAB PO SCH (08:25)
[2018-09-27] MEDS: FAMOTIDINE 20 MG TAB PO SCH ×2 (08:25→21:58)
[2018-09-27] MEDS: POTASSIUM CHLORIDE (SR) 10 MEQ TAB PO SCH ×2 (08:25→21:57)
[2018-09-27] MEDS: MAGNESIUM OXIDE 400 MG TAB PO SCH ×3 (08:26→21:58)
[2018-09-27] MEDS: DILTIAZEM (CD) 180 MG CAP PO SCH (08:26)
--- NOTE | 2018-09-27 08:27 | CONS ---
Assessment/Plan Assessment/Plan Hospital Course (Demo Recall) 1. Kidney transplant status. The patient had a cadaveric kidney transplant in 2006. He is on immunosuppressive therapy. His renal function today is back to normal. 2. He is now 14 days postop a left below the knee amputation. His left foot was infected and gangrenous. He now has a L stump that is draining dark bloody purulent material . He underwent a second surgery last week. The left stump wound was opened, drained, debrided and washed out. He now has a drain leading to a wound VAC on the left knee stump. 3. Hypertension 4. Peripheral artery disease 5. Anemia , is improving 6. Hyperlipidemia. 7. Hypomagnesemia, will replace magnesium today.I suspect he is loosing magn esium through kidney . I have started him on an oral magnesium supplement and I have had to increase the dose to 4 times a day because of continued low serum magnesium level. 8. Hypokalemia. Potassium is back to normal. I have increased his potassium supplements. I will order labs for tomorrow. Consultation Date/Type/Reason Admit Date/Time September 13, 2018 at 11:48 Initial Consult Date 09/13/18 Type of Consult Nephrology Date/Time of Note DATE: 09/27/18 TIME: 08:24 24 HR Interval Summary Free Text/Dictation Alphonso is awake and alert this morning. He is sitting up eating his breakfast. He has no new complaints. He is not having pain. Constitutional: no complaints, improved Exam/Review of Systems Exam Vitals Vital Signs Date Temp Pulse Resp B/P (MAP) Pulse Ox O2 O2 Flow FiO2 Time Delivery Rate 09/27/18 126 08:17 09/27/18 98.1 20 125/51 99 Room Air 07:27 (75) Intake and Output 09/26/18 09/26/18 09/27/18 1515:00 23:00 07:00 IntakeIntake Total 600 ml 820 ml OutputOutput Total 915 ml 1110 ml BalanceBalance -315 ml -290 ml Exam Left leg is status post a below the knee amputation. He has a drainage tube from the lower leg stump leading to a wound VAC. Constitutional: alert, oriented, frail Respiratory: clear to auscultation, normal air movement Cardiovascular: regular rate and rhythm Gastrointestinal: soft, non-tender Results Result Diagram: 09/27/18 0532 09/27/18 0531 Results 24hrs Laboratory Tests Test 09/27/18 05:31 09/27/18 05:32 Sodium Level 141 Potassium Level 4.3 Chloride Level 115 H Carbon Dioxide Level 21 Anion Gap 5 Blood Urea Nitrogen 16 Creatinine 1.18 Est Glomerular Filtrat Rate mL/min > 60 Glucose Level 96 Calcium Level 9.2 Total Bilirubin 0.4 Direct Bilirubin 0.00 Indirect Bilirubin 0.4 Aspartate Amino Transf (AST/SGOT) 49 H Alanine Aminotransferase (ALT/SGPT) 41 Alkaline Phosphatase 118 Total Protein 6.1 Albumin 2.7 L Globulin 3.40 H Albumin/Globulin Ratio 0.79 White Blood Count 9.7 Red Blood Count 3.50 L Hemoglobin 9.5 L Hematocrit 30.9 L Mean Corpuscular Volume 88.3 Mean Corpuscular Hemoglobin 27.1 L Mean Corpuscular Hemoglobin Concent 30.7 L Red Cell Distribution Width 19.1 H Platelet Count 262 Mean Platelet Volume 9.9 Immature Granulocytes % 4.000 H Neutrophils % 67.2 Lymphocytes % 11.3 L Monocytes % 11.0 Eosinophils % 5.5 Basophils % 1.0 Nucleated Red Blood Cells % 0.0 Immature Granulocytes # 0.390 H Neutrophils # 6.5 Lymphocytes # 1.1 Monocytes # 1.1 H Eosinophils # 0.5 Basophils # 0.1 Nucleated Red Blood Cells # 0.0 Medications Medication Current Medications Miscellaneous Information (* Miscellaneous Pharmacy Order) DURAMORPH: 0.2 MG SPI... GIVEN NEURAXIAL XX ; Start 09/13/18 at 16:30 IV Flush (NS 3 ml) 3 ml PER PROTOCOL IV ; Start 09/13/18 at 17:00 Acetaminophen (Tylenol Supp) 650 mg Q6H PRN [place] Fever; Start 09/13/18 at 17:00 Ondansetron HCl (Zofran Inj) 4 mg Q4H PRN IV NAUSEA AND/OR VOMITING; Start 09/13/18 at 17:00 Folic Acid (Folic Acid) 1 mg DAILY PO Last administered on 09/26/18at 09:33; Admin Dose 1 MG; Start 09/14/18 at 09:00 Multivit/Ca Carb/ B Cmplx/FA/Prenat (Flor-Elisa) 1 tab DAILY PO Last administered on 09/26/18at 09:33; Admin Dose 1 TAB; Start 09/14/18 at 09:00 Sodium Phosphate (Kphos Neutral) 1,000 mg BID PO Last administered on 09/26/18 21:06; Admin Dose 1,000 MG; Start 09/13/18 at 21:00 Hydromorphone HCl (Dilaudid) 1 mg Q4H PRN IV SEVERE PAIN LEVEL 7-10 Last administered on 09/26/18 01:54; Admin Dose 1 MG; Start 09/13/18 at 17:30 Calcitriol (Rocaltrol) 0.5 mcg DAILY PO Last administered on 09/26/18 09:33; Admin Dose 0.5 MCG; Start 09/14/18 at 09:00 Tacrolimus (Prograf) 1 mg BID PO Last administered on 09/26/18 21:06; Admin Dose 1 MG; Start 09/13/18 at 22:00 Leflunomide (Arava) 20 mg DAILY PO Last administered on 09/26/18 09:34; Admin Dose 20 MG; Start 09/14/18 at 09:00 Acetaminophen (Tylenol Tab) 650 mg Q6H PRN PO MILD PAIN(1-3)OR ELEVATED TEMP Last administered on 09/17/18 20:44; Admin Dose 650 MG; Start 09/17/18 at 17:00 Enoxaparin Sodium (Lovenox) 40 mg DAILY SC Last administered on 09/26/18 09:48; Admin Dose 40 MG; Start 09/19/18 at 09:00 Diltiazem HCl (Cardizem Cd) 180 mg DAILY PO Last administered on 09/26/18 09:34; Admin Dose 180 MG; Start 09/23/18 at 09:00 Potassium Chloride (Klor-Con 10) 20 meq BID PO Last administered on 09/26/18 21:06; Admin Dose 20 MEQ; Start 09/23/18 at 09:00 Famotidine (Pepcid) 20 mg BID PO Last administered on 09/26/18 21:07; Admin Dose 20 MG; Start 09/23/18 at 21:00 Calcium Carbonate (Tums) 500 mg Q4 PRN PO indigestion; Start 09/23/18 at 15:30 Metronidazole (Flagyl) 500 mg Q8 PO Last administered on 6/14/19at 06:44; Admin Dose 500 MG; Start 09/24/18 at 22:00 Levofloxacin (Levaquin) 500 mg DAILY@06 PO Last administered on 09/27/18at 06:44; Admin Dose 500 MG; Start 09/25/18 at 06:00 Magnesium Oxide (Mag-Ox 400) 400 mg QID PO Last administered on 09/26/18at 21:06; Admin Dose 400 MG; Start 09/26/18 at 09:00 Amiodarone HCl (Cordarone) 200 mg DAILY PO ; Start 09/26/18 at 10:00 ERIN MONTOYA MD Sep 27, 2018 08:27
[2018-09-27] MEDS: ENOXAPARIN 40 MG/0.4 ML SYG SC SCH (08:34)
[2018-09-27] MEDS: HYDROmorphONE 1 MG/ML SYG IV PRN (10:09)
--- NOTE | 2018-09-27 12:14 | CONS ---
Assessment/Plan Assessment/Plan Hospital Course (Demo Recall) New onset paroxysmal atrial fibrillation with RVR: EF preserved. CHADSVASC 2 for HTN and PAD so should be anticoagulated if ok with surgery. Remains in sinus after amiodarone s/p BKA 09/13/18 Sepsis due to above Severe PAD HTN Renal transplantation 2006 -amiodarone 200mg daily. Would only treat for one month total -diltiazem 180mg daily -when ok with surgery, anticoagulate with Eliquis or Xarelto -otherwise ok for d/c or placement Consultation Date/Type/Reason Admit Date/Time September 13, 2018 at 11:48 Initial Consult Date 09/20/18 Type of Consult Cardiology Date/Time of Note DATE: 09/27/18 TIME: 12:13 24 HR Interval Summary Free Text/Dictation No events. No afib. Exam/Review of Systems Vital Signs Vitals Vital Signs Date Temp Pulse Resp B/P (MAP) Pulse Ox O2 O2 Flow FiO2 Time Delivery Rate 09/27/18 98.1 95 20 103/47 98 Room Air 11:08 (65) Intake and Output 09/26/18 09/26/18 09/27/18 1515:00 23:00 07:00 IntakeIntake Total 600 ml 820 ml OutputOutput Total 915 ml 1110 ml BalanceBalance -315 ml -290 ml Exam Constitutional: alert, oriented Psych: no complaints, nl mood/affect Head: normocephalic, atraumatic Neck: No jvd Respiratory: clear to auscultation Cardiovascular: regular rate and rhythm; No edema Gastrointestinal: soft, non-tender; No distended 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: nl mental status, nl speech Labs Result Diagram: 09/27/18 0532 09/27/18 0531 Results 24hrs Laboratory Tests Test 09/27/18 05:31 09/27/18 05:32 Sodium Level 141 Potassium Level 4.3 Chloride Level 115 H Carbon Dioxide Level 21 Anion Gap 5 Blood Urea Nitrogen 16 Creatinine 1.18 Est Glomerular Filtrat Rate mL/min > 60 Glucose Level 96 Calcium Level 9.2 Magnesium Level 1.6 L Total Bilirubin 0.4 Direct Bilirubin 0.00 Indirect Bilirubin 0.4 Aspartate Amino Transf (AST/SGOT) 49 H Alanine Aminotransferase (ALT/SGPT) 41 Alkaline Phosphatase 118 Total Protein 6.1 Albumin 2.7 L Globulin 3.40 H Albumin/Globulin Ratio 0.79 White Blood Count 9.7 Red Blood Count 3.50 L Hemoglobin 9.5 L Hematocrit 30.9 L Mean Corpuscular Volume 88.3 Mean Corpuscular Hemoglobin 27.1 L Mean Corpuscular Hemoglobin Concent 30.7 L Red Cell Distribution Width 19.1 H Platelet Count 262 Mean Platelet Volume 9.9 Immature Granulocytes % 4.000 H Neutrophils % 67.2 Lymphocytes % 11.3 L Monocytes % 11.0 Eosinophils % 5.5 Basophils % 1.0 Nucleated Red Blood Cells % 0.0 Immature Granulocytes # 0.390 H Neutrophils # 6.5 Lymphocytes # 1.1 Monocytes # 1.1 H Eosinophils # 0.5 Basophils # 0.1 Nucleated Red Blood Cells # 0.0 Medications Medications Current Medications Miscellaneous Information (* Miscellaneous Pharmacy Order) DURAMORPH: 0.2 MG SPI... GIVEN NEURAXIAL XX ; Start 09/13/18 at 16:30 IV Flush (NS 3 ml) 3 ml PER PROTOCOL IV ; Start 09/13/18 at 17:00 Acetaminophen (Tylenol Supp) 650 mg Q6H PRN [place] Fever; Start 09/13/18 at 17:00 Ondansetron HCl (Zofran Inj) 4 mg Q4H PRN IV NAUSEA AND/OR VOMITING; Start 09/13/18 at 17:00 Folic Acid (Folic Acid) 1 mg DAILY PO Last administered on 09/27/18at 08:24; Admin Dose 1 MG; Start 09/14/18 at 09:00 Multivit/Ca Carb/ B Cmplx/FA/Prenat (Flor-Elisa) 1 tab DAILY PO Last administered on 09/27/18 08:24; Admin Dose 1 TAB; Start 09/14/18 at 09:00 Sodium Phosphate (Kphos Neutral) 1,000 mg BID PO Last administered on 09/27/18 08:25; Admin Dose 1,000 MG; Start 09/13/18 at 21:00 Hydromorphone HCl (Dilaudid) 1 mg Q4H PRN IV SEVERE PAIN LEVEL 7-10 Last administered on 09/27/18at 10:09; Admin Dose 1 MG; Start 09/13/18 at 17:30 Calcitriol (Rocaltrol) 0.5 mcg DAILY PO Last administered on 09/27/18 08:24; Admin Dose 0.5 MCG; Start 09/14/18 at 09:00 Tacrolimus (Prograf) 1 mg BID PO Last administered on 09/27/18 08:25; Admin Dose 1 MG; Start 09/13/18 at 22:00 Leflunomide (Arava) 20 mg DAILY PO Last administered on 09/27/18 08:24; Admin Dose 20 MG; Start 09/14/18 at 09:00 Acetaminophen (Tylenol Tab) 650 mg Q6H PRN PO MILD PAIN(1-3)OR ELEVATED TEMP Last administered on 09/17/18 20:44; Admin Dose 650 MG; Start 09/17/18 at 17:00 Enoxaparin Sodium (Lovenox) 40 mg DAILY SC Last administered on 09/27/18 08:34; Admin Dose 40 MG; Start 09/19/18 at 09:00 Diltiazem HCl (Cardizem Cd) 180 mg DAILY PO Last administered on 09/27/18 08:26; Admin Dose 180 MG; Start 09/23/18 at 09:00 Potassium Chloride (Klor-Con 10) 20 meq BID PO Last administered on 09/27/18 08:25; Admin Dose 20 MEQ; Start 09/23/18 at 09:00 Famotidine (Pepcid) 20 mg BID PO Last administered on 09/27/18 08:25; Admin Dose 20 MG; Start 09/23/18 at 21:00 Calcium Carbonate (Tums) 500 mg Q4 PRN PO indigestion; Start 09/23/18 at 15:30 Metronidazole (Flagyl) 500 mg Q8 PO Last administered on 09/27/18 06:44; Admin Dose 500 MG; Start 09/24/18 at 22:00 Levofloxacin (Levaquin) 500 mg DAILY@06 PO Last administered on 09/27/18 06:44; Admin Dose 500 MG; Start 09/25/18 at 06:00 Magnesium Oxide (Mag-Ox 400) 400 mg QID PO Last administered on 09/27/18 08:26; Admin Dose 400 MG; Start 09/26/18 at 09:00 Amiodarone HCl (Cordarone) 200 mg DAILY PO Last administered on 09/27/18 08:25; Admin Dose 200 MG; Start 09/26/18 at 10:00 YOLI HOROWITZ Sep 27, 2018 12:14
--- NOTE | 2018-09-27 13:08 | PN ---
Date/Time of Note Date/Time of Note DATE: 09/27/18 TIME: 13:05 Assessment/Plan VTE Prophylaxis Risk score (from Ns)>0 risk: 5 SCD applied (from Ns): Yes Pharmacological prophylaxis: heparin Lines/Catheters IV Catheter Type (from Nrs): Saline Lock Urinary Cath still in place: No Assessment/Plan Assessment/Plan 1. Severe left peripheral artery disease with infected left TMA stump - Vascular consultation appreciated. s/p Urgent left below-knee amputation on 09/13/2018 with washout. Will plan for revision vs AKA next week - Antibiotics as per ID 2. SVT secondary to A. fib with RVR - still with episodes of RVR - Cardiology on board and appreciate recommendations. Continue current medications and titrate to amiodarone daily. Plan to treat for 1 month duration (10/20) - Once cleared by Surgeon, will start NOAC for afib. Will have revision of stump next week so hold off for now 3. Sepsis with leukocytosis, febrile illness, and lactic acidosis secondary to lower extremity infection- improving - wound culture results noted - ID on board for antibiotic recommendations 4. Peripheral vascular disease. - Continue statins 5. History of renal transplant. - nephrology on board and appreciate recommendations - continue immunosuppressants - Cr remains stable 6. Normocytic anemia - stable - no need for transfusions at this time 7. HLD - on statin 8. Disposition - Patient still continues with episodes of RVR and needs to remain on Telemetry floor for monitoring. Result Diagram: 09/27/18 0532 09/27/18 0531 Results 24hrs Laboratory Tests Test 09/27/18 05:31 09/27/18 05:32 Sodium Level 141 Potassium Level 4.3 Chloride Level 115 H Carbon Dioxide Level 21 Anion Gap 5 Blood Urea Nitrogen 16 Creatinine 1.18 Est Glomerular Filtrat Rate mL/min > 60 Glucose Level 96 Calcium Level 9.2 Magnesium Level 1.6 L Total Bilirubin 0.4 Direct Bilirubin 0.00 Indirect Bilirubin 0.4 Aspartate Amino Transf (AST/SGOT) 49 H Alanine Aminotransferase (ALT/SGPT) 41 Alkaline Phosphatase 118 Total Protein 6.1 Albumin 2.7 L Globulin 3.40 H Albumin/Globulin Ratio 0.79 White Blood Count 9.7 Red Blood Count 3.50 L Hemoglobin 9.5 L Hematocrit 30.9 L Mean Corpuscular Volume 88.3 Mean Corpuscular Hemoglobin 27.1 L Mean Corpuscular Hemoglobin Concent 30.7 L Red Cell Distribution Width 19.1 H Platelet Count 262 Mean Platelet Volume 9.9 Immature Granulocytes % 4.000 H Neutrophils % 67.2 Lymphocytes % 11.3 L Monocytes % 11.0 Eosinophils % 5.5 Basophils % 1.0 Nucleated Red Blood Cells % 0.0 Immature Granulocytes # 0.390 H Neutrophils # 6.5 Lymphocytes # 1.1 Monocytes # 1.1 H Eosinophils # 0.5 Basophils # 0.1 Nucleated Red Blood Cells # 0.0 Subjective 24 Hr Interval Summary Free Text/Dictation Patient had wound vac changes this am which was painful but denies any other issues. No acute overnight events. Exam/Review of Systems Exam Vitals Vital Signs Date Temp Pulse Resp B/P (MAP) Pulse Ox O2 O2 Flow FiO2 Time Delivery Rate 09/27/18 100 12:14 09/27/18 98.1 20 103/47 98 Room Air 11:08 (65) Intake and Output 09/26/18 09/26/18 09/27/18 1515:00 23:00 07:00 IntakeIntake Total 600 ml 820 ml OutputOutput Total 915 ml 1110 ml BalanceBalance -315 ml -290 ml Exam General: no acute distress. answering questions appropriately CVS: S1, S2, regular rate and rhythm. no murmurs Lungs: clear to auscultation bilaterally. no wheezing or rhonchi Abd: soft, nontender, nondistended. no rebound or guarding. bowel sounds present diffusely Ext: L BKA. no cyanosis, clubbing, or edema Skin: warm, dry. LLE dressing intact with wound vac in place Results Results 24hrs Laboratory Tests Test 09/27/18 05:31 09/27/18 05:32 Sodium Level 141 Potassium Level 4.3 Chloride Level 115 H Carbon Dioxide Level 21 Anion Gap 5 Blood Urea Nitrogen 16 Creatinine 1.18 Est Glomerular Filtrat Rate mL/min > 60 Glucose Level 96 Calcium Level 9.2 Magnesium Level 1.6 L Total Bilirubin 0.4 Direct Bilirubin 0.00 Indirect Bilirubin 0.4 Aspartate Amino Transf (AST/SGOT) 49 H Alanine Aminotransferase (ALT/SGPT) 41 Alkaline Phosphatase 118 Total Protein 6.1 Albumin 2.7 L Globulin 3.40 H Albumin/Globulin Ratio 0.79 White Blood Count 9.7 Red Blood Count 3.50 L Hemoglobin 9.5 L Hematocrit 30.9 L Mean Corpuscular Volume 88.3 Mean Corpuscular Hemoglobin 27.1 L Mean Corpuscular Hemoglobin Concent 30.7 L Red Cell Distribution Width 19.1 H Platelet Count 262 Mean Platelet Volume 9.9 Immature Granulocytes % 4.000 H Neutrophils % 67.2 Lymphocytes % 11.3 L Monocytes % 11.0 Eosinophils % 5.5 Basophils % 1.0 Nucleated Red Blood Cells % 0.0 Immature Granulocytes # 0.390 H Neutrophils # 6.5 Lymphocytes # 1.1 Monocytes # 1.1 H Eosinophils # 0.5 Basophils # 0.1 Nucleated Red Blood Cells # 0.0 Medications Medication Current Medications Miscellaneous Information (* Miscellaneous Pharmacy Order) DURAMORPH: 0.2 MG SP I... GIVEN NEURAXIAL XX ; Start 09/13/18 at 16:30 IV Flush (NS 3 ml) 3 ml PER PROTOCOL IV ; Start 09/13/18 at 17:00 Acetaminophen (Tylenol Supp) 650 mg Q6H PRN [place] Fever; Start 09/13/18 at 17:00 Ondansetron HCl (Zofran Inj) 4 mg Q4H PRN IV NAUSEA AND/OR VOMITING; Start 09/13/18 at 17:00 Folic Acid (Folic Acid) 1 mg DAILY PO Last administered on 09/27/18at 08:24; Admin Dose 1 MG; Start 09/14/18 at 09:00 Multivit/Ca Carb/ B Cmplx/FA/Prenat (Flor-Elisa) 1 tab DAILY PO Last administered on 09/27/18 08:24; Admin Dose 1 TAB; Start 09/14/18 at 09:00 Sodium Phosphate (Kphos Neutral) 1,000 mg BID PO Last administered on 09/27/18 08:25; Admin Dose 1,000 MG; Start 09/13/18 at 21:00 Hydromorphone HCl (Dilaudid) 1 mg Q4H PRN IV SEVERE PAIN LEVEL 7-10 Last administered on 09/27/18at 10:09; Admin Dose 1 MG; Start 09/13/18 at 17:30 Calcitriol (Rocaltrol) 0.5 mcg DAILY PO Last administered on 09/27/18 08:24; Admin Dose 0.5 MCG; Start 09/14/18 at 09:00 Tacrolimus (Prograf) 1 mg BID PO Last administered on 09/27/18 08:25; Admin Dose 1 MG; Start 09/13/18 at 22:00 Leflunomide (Arava) 20 mg DAILY PO Last administered on 09/27/18 08:24; Admin Dose 20 MG; Start 09/14/18 at 09:00 Acetaminophen (Tylenol Tab) 650 mg Q6H PRN PO MILD PAIN(1-3)OR ELEVATED TEMP Last administered on 09/17/18 20:44; Admin Dose 650 MG; Start 09/17/18 at 17:00 Enoxaparin Sodium (Lovenox) 40 mg DAILY SC Last administered on 09/27/18 08:34; Admin Dose 40 MG; Start 09/19/18 at 09:00 Diltiazem HCl (Cardizem Cd) 180 mg DAILY PO Last administered on 09/27/18 08:26; Admin Dose 180 MG; Start 09/23/18 at 09:00 Potassium Chloride (Klor-Con 10) 20 meq BID PO Last administered on 09/27/18 08:25; Admin Dose 20 MEQ; Start 09/23/18 at 09:00 Famotidine (Pepcid) 20 mg BID PO Last administered on 09/27/18 08:25; Admin Dose 20 MG; Start 09/23/18 at 21:00 Calcium Carbonate (Tums) 500 mg Q4 PRN PO indigestion; Start 09/23/18 at 15:30 Metronidazole (Flagyl) 500 mg Q8 PO Last administered on 09/27/18 13:01; Admin Dose 500 MG; Start 09/24/18 at 22:00 Levofloxacin (Levaquin) 500 mg DAILY@06 PO Last administered on 09/27/18 06:44; Admin Dose 500 MG; Start 09/25/18 at 06:00 Magnesium Oxide (Mag-Ox 400) 400 mg QID PO Last administered on 09/27/18 13:01; Admin Dose 400 MG; Start 09/26/18 at 09:00 Amiodarone HCl (Cordarone) 200 mg DAILY PO Last administered on 09/27/18 08:25; Admin Dose 200 MG; Start 09/26/18 at 10:00 ZAN BURKETT MD Sep 27, 2018 13:08
--- NOTE | 2018-09-27 15:24 | CONS ---
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 CoNS is a likely colonizer - h/o draining wound, necrosis and infection of L TMA site. ESR 121 on 09/12/2018. 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 All the infected tissue was removed by L BKA according to Dr. Cortes progress note - h/o gangrene and infection of L foot - afib with RVR- converted to SR - hypertension - h/o renal transplant at [facility] in 2006, maintained on tacrolimus - immunocompromised status - expected post-op anemia - transaminitis - improving - hypomagnesemia - repleted - adverse reaction to cefazolin (hives), meropenem (pruritus) Recommendations: - Continue levofloxacin (09/17/2018-) and metronidazole (09/17/2018-) for stump infection probably to complete 2 weeks total; s/p aztreonam (09/13/2018- 09/24/2018) - Trend WBC and fever curve (uptick in WBC noted but remains afebrile) - Pt will need vigilant and close ID f/u to ensure no recurrent infectious process; if this can be ensured then abx course can be shorter as OM unlikely - Dr. Cortes planning debridement and possible closure next week; if AKA then likely will not need more abx afterwards - I requested nursing to photograph wound with next bandage change via misc. order I directed [employer] care yesterday afternoon during phone call at approx 5:30 pm. Consultation Date/Type/Reason Admit Date/Time September 13, 2018 at 11:48 Initial Consult Date 09/13/18 Date/Time of Note DATE: 09/27/18 TIME: 15:20 24 HR Interval Summary Free Text/Dictation d/w Dr. Eric. Care coordinated. Exam/Review of Systems Exam Vitals Vital Signs Date Temp Pulse Resp B/P (MAP) Pulse Ox O2 O2 Flow FiO2 Time Delivery Rate 09/27/18 97.9 97 20 121/53 98 Room Air 14:59 (75) Intake and Output 09/26/18 09/26/18 09/27/18 1515:00 23:00 07:00 IntakeIntake Total 600 ml 820 ml OutputOutput Total 915 ml 1110 ml BalanceBalance -315 ml -290 ml Exam sleeping peacefully. wound vac in place Head: normocephalic, atraumatic Eyes: nl lids Results Result Diagram: 09/27/18 0532 09/27/18 0531 Results 24hrs Laboratory Tests Test 09/27/18 05:31 09/27/18 05:32 Sodium Level 141 Potassium Level 4.3 Chloride Level 115 H Carbon Dioxide Level 21 Anion Gap 5 Blood Urea Nitrogen 16 Creatinine 1.18 Est Glomerular Filtrat Rate mL/min > 60 Glucose Level 96 Calcium Level 9.2 Magnesium Level 1.6 L Total Bilirubin 0.4 Direct Bilirubin 0.00 Indirect Bilirubin 0.4 Aspartate Amino Transf (AST/SGOT) 49 H Alanine Aminotransferase (ALT/SGPT) 41 Alkaline Phosphatase 118 Total Protein 6.1 Albumin 2.7 L Globulin 3.40 H Albumin/Globulin Ratio 0.79 White Blood Count 9.7 Red Blood Count 3.50 L Hemoglobin 9.5 L Hematocrit 30.9 L Mean Corpuscular Volume 88.3 Mean Corpuscular Hemoglobin 27.1 L Mean Corpuscular Hemoglobin Concent 30.7 L Red Cell Distribution Width 19.1 H Platelet Count 262 Mean Platelet Volume 9.9 Immature Granulocytes % 4.000 H Neutrophils % 67.2 Lymphocytes % 11.3 L Monocytes % 11.0 Eosinophils % 5.5 Basophils % 1.0 Nucleated Red Blood Cells % 0.0 Immature Granulocytes # 0.390 H Neutrophils # 6.5 Lymphocytes # 1.1 Monocytes # 1.1 H Eosinophils # 0.5 Basophils # 0.1 Nucleated Red Blood Cells # 0.0 Medications Medication Current Medications Miscellaneous Information (* Miscellaneous Pharmacy Order) DURAMORPH: 0.2 MG SPI... GIVEN NEURAXIAL XX ; Start 09/13/18 at 16:30 IV Flush (NS 3 ml) 3 ml PER PROTOCOL IV ; Start 09/13/18 at 17:00 Acetaminophen (Tylenol Supp) 650 mg Q6H PRN [place] Fever; Start 09/13/18 at 17:00 Ondansetron HCl (Zofran Inj) 4 mg Q4H PRN IV NAUSEA AND/OR VOMITING; Start 09/13/18 at 17:00 Folic Acid (Folic Acid) 1 mg DAILY PO Last administered on 09/27/18 08:24; Ad min Dose 1 MG; Start 09/14/18 at 09:00 Multivit/Ca Carb/ B Cmplx/FA/Prenat (Flor-Elisa) 1 tab DAILY PO Last administered on 09/27/18 08:24; Admin Dose 1 TAB; Start 09/14/18 at 09:00 Sodium Phosphate (Kphos Neutral) 1,000 mg BID PO Last administered on 09/27/18 08:25; Admin Dose 1,000 MG; Start 09/13/18 at 21:00 Hydromorphone HCl (Dilaudid) 1 mg Q4H PRN IV SEVERE PAIN LEVEL 7-10 Last administered on 09/27/18 10:09; Admin Dose 1 MG; Start 09/13/18 at 17:30 Calcitriol (Rocaltrol) 0.5 mcg DAILY PO Last administered on 09/27/18 08:24; Admin Dose 0.5 MCG; Start 09/14/18 at 09:00 Tacrolimus (Prograf) 1 mg BID PO Last administered on 09/27/18 08:25; Admin Dose 1 MG; Start 09/13/18 at 22:00 Leflunomide (Arava) 20 mg DAILY PO Last administered on 09/27/18 08:24; Admin Dose 20 MG; Start 09/14/18 at 09:00 Acetaminophen (Tylenol Tab) 650 mg Q6H PRN PO MILD PAIN(1-3)OR ELEVATED TEMP Last administered on 09/17/18 20:44; Admin Dose 650 MG; Start 09/17/18 at 17:00 Enoxaparin Sodium (Lovenox) 40 mg DAILY SC Last administered on 09/27/18 08:34; Admin Dose 40 MG; Start 09/19/18 at 09:00 Diltiazem HCl (Cardizem Cd) 180 mg DAILY PO Last administered on 09/27/18 08:26; Admin Dose 180 MG; Start 09/23/18 at 09:00 Potassium Chloride (Klor-Con 10) 20 meq BID PO Last administered on 09/27/18 08:25; Admin Dose 20 MEQ; Start 09/23/18 at 09:00 Famotidine (Pepcid) 20 mg BID PO Last administered on 09/27/18 08:25; Admin Dose 20 MG; Start 09/23/18 at 21:00 Calcium Carbonate (Tums) 500 mg Q4 PRN PO indigestion; Start 09/23/18 at 15:30 Metronidazole (Flagyl) 500 mg Q8 PO Last administered on 09/27/18at 13:01; Admin Dose 500 MG; Start 09/24/18 at 22:00 Levofloxacin (Levaquin) 500 mg DAILY@06 PO Last administered on 09/27/18at 06:44; Admin Dose 500 MG; Start 09/25/18 at 06:00 Magnesium Oxide (Mag-Ox 400) 400 mg QID PO Last administered on 09/27/18 13:01; Admin Dose 400 MG; Start 09/26/18 at 09:00 Amiodarone HCl (Cordarone) 200 mg DAILY PO Last administered on 09/27/18 08:25; Admin Dose 200 MG; Start 09/26/18 at 10:00 JACKIE ARIAS MD Sep 27, 2018 15:24
--- NOTE | 2018-09-27 16:34 | PN ---
Date/Time of Note Date/Time of Note DATE: 09/27/18 TIME: 16:32 Assessment/Plan Lines/Catheters IV Catheter Type (from Nrs): Saline Lock Don in Place (from Nrs): No Assessment/Plan Assessment/Plan L BKA stump infection with Bacteroides and fungus Antibiotics per ID Will plan to further debride, possible close the stump next week in the OR Subjective 24 Hr Interval Summary No c/o. Exam/Review of Systems Vital Signs Vitals Vital Signs Date Temp Pulse Resp B/P (MAP) Pulse Ox O2 O2 Flow FiO2 Time Delivery Rate 09/27/18 97 16:10 09/27/18 97.9 20 121/53 98 Room Air 14:59 (75) Intake and Output 09/26/18 09/26/18 09/27/18 1414:59 22:59 06:59 IntakeIntake Total 600 ml 820 ml OutputOutput Total 915 ml 1110 ml BalanceBalance -315 ml -290 ml Exam Free Text/Dictation L BKA stump with VAC in place, good seal, I looked at the image from VAC change and the tissue all looks healthy with some necrosis of the skin flap laterally that is dry, no more necrotic muscle or tendon Results Result Diagram: 09/27/18 0532 09/27/18 0531 AMARILIS RIBERA MD Sep 27, 2018 16:34
[2018-09-28] VITALS (10 sets, daily range): BP systolic 108–145; BP diastolic 62–86; PULSE 86–113; RESP 18–20
[2018-09-28] MEDS: metroNIDAZOLE 500 MG TAB PO SCH ×3 (06:20→21:38)
[2018-09-28] MEDS: LEVOFLOXACIN 500 MG TAB PO SCH (06:20)
[2018-09-28] MEDS: LEFLUNOMIDE 20 MG TAB PO SCH (08:41)
[2018-09-28] MEDS: POTASSIUM CHLORIDE (SR) 10 MEQ TAB PO SCH ×2 (08:42→21:05)
[2018-09-28] MEDS: FAMOTIDINE 20 MG TAB PO SCH ×2 (08:42→21:05)
[2018-09-28] MEDS: CALCITRIOL 0.25 MCG CAP PO SCH (08:42)
[2018-09-28] MEDS: MAGNESIUM OXIDE 400 MG TAB PO SCH ×3 (08:42→21:06)
[2018-09-28] MEDS: FOLIC ACID 1 MG TAB PO SCH (08:42)
[2018-09-28] MEDS: SOD PHOS MONO/DIBAS 250 MG TAB PO SCH ×2 (08:43→21:38)
[2018-09-28] MEDS: TACROLIMUS 1 MG CAP PO SCH ×2 (08:43→21:06)
[2018-09-28] MEDS: AMIODARONE 200 MG TAB PO SCH (08:44)
[2018-09-28] MEDS: MULTIVIT/CA CARB/B CMPLX/FA TAB PO SCH (08:44)
[2018-09-28] MEDS: DILTIAZEM (CD) 180 MG CAP PO SCH (08:45)
[2018-09-28] MEDS: ENOXAPARIN 40 MG/0.4 ML SYG SC SCH (08:49)
--- NOTE | 2018-09-28 09:35 | CONS ---
[facility] HCIS Consult Follow-up Patient Name: Alphonso Lee Unit Number: [id number] Date of : 1960 Patient Status: Admitted Inpatient Attending Doctor: Wanda Eric MD Edit: CLARE PIRES M.D. on 09/30/18 @ 16:58 Pranay: I discussed the management with GEORGE Josue and agree Assessment/Plan Assessment/Plan Hospital Course (Demo Recall) - sepsis due infected left BKA stump - improving - elevated procalcitonin - downward trending - infected and necrotizing left below knee amputation stump, s/p Exploration and washout, debridement and VAC placement left infected below knee amputation stump on 09/19/2018; path negative for malignancy; Wound culture grew Bacteroides Fragilis on 09/18/2018; Intraop culture grew coag neg staph and Bacteroides Fragilis on 09/19/18. CoNS is a likely colonizer - h/o draining wound, necrosis and infection of L TMA site. ESR 121 on 09/12/2018. 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 All the infected tissue was removed by L BKA according to Dr. Cortes progress note - h/o gangrene and infection of L foot - afib with RVR- converted to SR - hypertension - h/o renal transplant at [facility] in 2006, maintained on tacrolimus - immunocompromised status - expected post-op anemia - transaminitis - improving - hypomagnesemia - repleted - adverse reaction to cefazolin (hives), meropenem (pruritus) Recommendations: - Continue levofloxacin (09/17/2018-) and metronidazole (09/17/2018-) for stump infection probably to complete 2 weeks total; s/p aztreonam (09/13/2018- 09/24/2018) - Pt will need vigilant and close ID f/u to ensure no recurrent infectious process; if this can be ensured then abx course can be shorter as OM unlikely - Dr. Cotres planning debridement and possible closure next week; if AKA then likely will not need more abx afterwards - Trend WBC and fever curve - improving - Requested nursing to photograph wound with next bandage change via misc. order - per XAVIER Lucio next wound change may be tomorrow Plan was d/w patient, RN Khadijah at bedside, and with Dr. Pires. Consultation Date/Type/Reason Admit Date/Time September 13, 2018 at 11:48 Initial Consult Date 09/13/18 Type of Consult ID Date/Time of Note DATE: 09/28/18 TIME: 09:27 24 HR Interval Summary Free Text/Dictation Patient denied pain, and denied all ROS when reviewed. Afebrile, WBC 9.9. Exam/Review of Systems Exam Vitals Vital Signs Date Temp Pulse Resp B/P (MAP) Pulse Ox O2 O2 Flow FiO2 Time Delivery Rate 09/28/18 113 08:01 09/28/18 97.8 20 133/85 99 Room Air 07:22 (101) Allergies Coded Allergies cefazolin (Verified Allergy, Intermediate, HIVES, 09/14/18) meropenem (Verified Allergy, Intermediate, 09/14/18) pruritus (observed on 09/13/2018) Intake and Output 09/27/18 09/27/18 09/28/18 1515:00 23:00 07:00 IntakeIntake Total 720 ml OutputOutput Total 800 ml BalanceBalance -80 ml Exam Constitutional: well developed, other (awake, RN at bedside cleaning pt post bedpan use; In NAD) Psych: no complaints, nl mood/affect Head: normocephalic, atraumatic Eyes: nl conjunctiva, nl lids, nl sclera ENMT: nl external ears & nose, nl nasal mucosa & septum, mucosa pink and moist Neck: supple, non-tender Respiratory: clear to auscultation, normal air movement Cardiovascular: regular rate and rhythm, nl pulses Gastrointestinal: soft, non-tender, bowel sounds (normoactive) Genitourinary - Male: other (No f/c) Musculoskeletal: other (L BKA site with wound vac in place - current wound vac container is empty, wrapped with a c/d/i real bandage - reviewed nsg notes/pics in MAR most recent pic was from 09/23, brace currently off.) Extremities: normal pulses; No edema 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: nl mental status, nl speech Skin: nl turgor; No rash or lesions Results Result Diagram: 09/28/18 0531 09/28/18 0531 Results 24hrs Laboratory Tests Test 09/28/18 05:31 White Blood Count 9.9 Red Blood Count 4.22 #L Hemoglobin 11.4 L Hematocrit 36.9 L Mean Corpuscular Volume 87.4 Mean Corpuscular Hemoglobin 27.0 L Mean Corpuscular Hemoglobin Concent 30.9 L Red Cell Distribution Width 20.3 H Platelet Count 253 Mean Platelet Volume 9.7 Immature Granulocytes % 3.500 H Neutrophils % 71.5 Lymphocytes % 9.4 L Monocytes % 10.6 Eosinophils % 4.0 Basophils % 1.0 Nucleated Red Blood Cells % 0.0 Immature Granulocytes # 0.350 H Neutrophils # 7.0 Lymphocytes # 0.9 Monocytes # 1.1 H Eosinophils # 0.4 Basophils # 0.1 Nucleated Red Blood Cells # 0.0 Sodium Level 141 Potassium Level 4.5 Chloride Level 114 H Carbon Dioxide Level 23 Anion Gap 4 L Blood Urea Nitrogen 17 Creatinine 1.27 H Est Glomerular Filtrat Rate mL/min 58 L Glucose Level 102 Calcium Level 10.1 Magnesium Level 1.5 L Total Bilirubin 0.5 Direct Bilirubin 0.00 Indirect Bilirubin 0.5 Aspartate Amino Transf (AST/SGOT) 43 Alanine Aminotransferase (ALT/SGPT) 33 Alkaline Phosphatase 126 H Total Protein 6.6 Albumin 3.1 L Globulin 3.50 H Albumin/Globulin Ratio 0.88 Imaging Imaging No new imaging. Medications Medication Current Medications Miscellaneous Information (* Miscellaneous Pharmacy Order) DURAMORPH: 0.2 MG SPI... GIVEN NEURAXIAL XX ; Start 09/13/18 at 16:30 IV Flush (NS 3 ml) 3 ml PER PROTOCOL IV ; Start 09/13/18 at 17:00 Acetaminophen (Tylenol Supp) 650 mg Q6H PRN [place] Fever; Start 09/13/18 at 17:00 Ondansetron HCl (Zofran Inj) 4 mg Q4H PRN IV NAUSEA AND/OR VOMITING; Start 09/13/18 at 17:00 Folic Acid (Folic Acid) 1 mg DAILY PO Last administered on 09/28/18at 08:42; Admin Dose 1 MG; Start 09/14/18 at 09:00 Multivit/Ca Carb/ B Cmplx/FA/Prenat (Flor-Elisa) 1 tab DAILY PO Last administered on 09/28/18 08:44; Admin Dose 1 TAB; Start 09/14/18 at 09:00 Sodium Phosphate (Kphos Neutral) 1,000 mg BID PO Last administered on 09/28/18 08:43; Admin Dose 1,000 MG; Start 09/13/18 at 21:00 Hydromorphone HCl (Dilaudid) 1 mg Q4H PRN IV SEVERE PAIN LEVEL 7-10 Last admini stered on 09/27/18 10:09; Admin Dose 1 MG; Start 09/13/18 at 17:30 Calcitriol (Rocaltrol) 0.5 mcg DAILY PO Last administered on 09/28/18 08:42; Admin Dose 0.5 MCG; Start 09/14/18 at 09:00 Tacrolimus (Prograf) 1 mg BID PO Last administered on 09/28/18 08:43; Admin Dose 1 MG; Start 09/13/18 at 22:00 Leflunomide (Arava) 20 mg DAILY PO Last administered on 09/28/18 08:41; Admin Dose 20 MG; Start 09/14/18 at 09:00 Acetaminophen (Tylenol Tab) 650 mg Q6H PRN PO MILD PAIN(1-3)OR ELEVATED TEMP Last administered on 09/17/18 20:44; Admin Dose 650 MG; Start 09/17/18 at 17:00 Enoxaparin Sodium (Lovenox) 40 mg DAILY SC Last administered on 09/28/18 08:49; Admin Dose 40 MG; Start 09/19/18 at 09:00 Diltiazem HCl (Cardizem Cd) 180 mg DAILY PO Last administered on 09/28/18 08:45; Admin Dose 180 MG; Start 09/23/18 at 09:00 Potassium Chloride (Klor-Con 10) 20 meq BID PO Last administered on 09/28/18 08:42; Admin Dose 20 MEQ; Start 09/23/18 at 09:00 Famotidine (Pepcid) 20 mg BID PO Last administered on 09/28/18 08:42; Admin Dose 20 MG; Start 09/23/18 at 21:00 Calcium Carbonate (Tums) 500 mg Q4 PRN PO indigestion; Start 09/23/18 at 15:30 Metronidazole (Flagyl) 500 mg Q8 PO Last administered on 09/28/18at 06:20; Admin Dose 500 MG; Start 09/24/18 at 22:00 Levofloxacin (Levaquin) 500 mg DAILY@06 PO Last administered on 09/28/18at 06:20; Admin Dose 500 MG; Start 09/25/18 at 06:00 Amiodarone HCl (Cordarone) 200 mg DAILY PO Last administered on 09/28/18at 08:44; Admin Dose 200 MG; Start 09/26/18 at 10:00 Magnesium Oxide (Mag-Ox 400) 800 mg TID PO Last administered on 09/28/18at 08:42; Admin Dose 800 MG; Start 09/27/18 at 21:00 WM JOSUE NP Sep 28, 2018 09:35
--- NOTE | 2018-09-28 09:52 | CONS ---
Assessment/Plan Assessment/Plan Hospital Course (Demo Recall) New onset paroxysmal atrial fibrillation with RVR: EF preserved. CHADSVASC 2 for HTN and PAD so should be anticoagulated if ok with surgery. 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 For now plan for repeat surgery Consultation Date/Type/Reason Admit Date/Time September 13, 2018 at 11:48 Initial Consult Date 09/20/18 Type of Consult Cardiology Date/Time of Note DATE: 09/28/18 TIME: 09:51 24 HR Interval Summary Free Text/Dictation No events. Seen by Dr. Cortes with plan for repeat debridement in OR this week Exam/Review of Systems Vital Signs Vitals Vital Signs Date Temp Pulse Resp B/P (MAP) Pulse Ox O2 O2 Flow FiO2 Time Delivery Rate 09/28/18 113 08:01 09/28/18 97.8 20 133/85 99 Room Air 07:22 (101) Intake and Output 09/27/18 09/27/18 09/28/18 1515:00 23:00 07:00 IntakeIntake Total 720 ml OutputOutput Total 800 ml BalanceBalance -80 ml Exam Constitutional: alert, oriented Psych: no complaints, nl mood/affect Head: normocephalic, atraumatic Neck: No jvd Respiratory: clear to auscultation; No crackles/rales Cardiovascular: regular rate and rhythm; No edema Gastrointestinal: soft, non-tender; No distended 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: nl mental status, nl speech Labs Result Diagram: 09/28/18 0531 09/28/18 0531 Results 24hrs Laboratory Tests Test 09/28/18 05:31 White Blood Count 9.9 Red Blood Count 4.22 #L Hemoglobin 11.4 L Hematocrit 36.9 L Mean Corpuscular Volume 87.4 Mean Corpuscular Hemoglobin 27.0 L Mean Corpuscular Hemoglobin Concent 30.9 L Red Cell Distribution Width 20.3 H Platelet Count 253 Mean Platelet Volume 9.7 Immature Granulocytes % 3.500 H Neutrophils % 71.5 Lymphocytes % 9.4 L Monocytes % 10.6 Eosinophils % 4.0 Basophils % 1.0 Nucleated Red Blood Cells % 0.0 Immature Granulocytes # 0.350 H Neutrophils # 7.0 Lymphocytes # 0.9 Monocytes # 1.1 H Eosinophils # 0.4 Basophils # 0.1 Nucleated Red Blood Cells # 0.0 Sodium Level 141 Potassium Level 4.5 Chloride Level 114 H Carbon Dioxide Level 23 Anion Gap 4 L Blood Urea Nitrogen 17 Creatinine 1.27 H Est Glomerular Filtrat Rate mL/min 58 L Glucose Level 102 Calcium Level 10.1 Magnesium Level 1.5 L Total Bilirubin 0.5 Direct Bilirubin 0.00 Indirect Bilirubin 0.5 Aspartate Amino Transf (AST/SGOT) 43 Alanine Aminotransferase (ALT/SGPT) 33 Alkaline Phosphatase 126 H Total Protein 6.6 Albumin 3.1 L Globulin 3.50 H Albumin/Globulin Ratio 0.88 Medications Medications Current Medications Miscellaneous Information (* Miscellaneous Pharmacy Order) DURAMORPH: 0.2 MG SPI... GIVEN NEURAXIAL XX ; Start 09/13/18 at 16:30 IV Flush (NS 3 ml) 3 ml PER PROTOCOL IV ; Start 09/13/18 at 17:00 Acetaminophen (Tylenol Supp) 650 mg Q6H PRN [place] Fever; Start 09/13/18 at 17:00 Ondansetron HCl (Zofran Inj) 4 mg Q4H PRN IV NAUSEA AND/OR VOMITING; Start 09/13/18 at 17:00 Folic Acid (Folic Acid) 1 mg DAILY PO Last administered on 09/28/18at 08:42; Admin Dose 1 MG; Start 09/14/18 at 09:00 Multivit/Ca Carb/ B Cmplx/FA/Prenat (Flor-Elisa) 1 tab DAILY PO Last administered on 09/28/18at 08:44; Admin Dose 1 TAB; Start 09/14/18 at 09:00 Sodium Phosphate (Kphos Neutral) 1,000 mg BID PO Last administered on 09/28/18at 08:43; Admin Dose 1,000 MG; Start 09/13/18 at 21:00 Hydromorphone HCl (Dilaudid) 1 mg Q4H PRN IV SEVERE PAIN LEVEL 7-10 Last administered on 09/27/18at 10:09; Admin Dose 1 MG; Start 09/13/18 at 17:30 Calcitriol (Rocaltrol) 0.5 mcg DAILY PO Last administered on 09/28/18 08:42; Admin Dose 0.5 MCG; Start 09/14/18 at 09:00 Tacrolimus (Prograf) 1 mg BID PO Last administered on 09/28/18 08:43; Admin Dose 1 MG; Start 09/13/18 at 22:00 Leflunomide (Arava) 20 mg DAILY PO Last administered on 09/28/18 08:41; Admin Dose 20 MG; Start 09/14/18 at 09:00 Acetaminophen (Tylenol Tab) 650 mg Q6H PRN PO MILD PAIN(1-3)OR ELEVATED TEMP Last administered on 09/17/18 20:44; Admin Dose 650 MG; Start 09/17/18 at 17:00 Enoxaparin Sodium (Lovenox) 40 mg DAILY SC Last administered on 09/28/18 08:49; Admin Dose 40 MG; Start 09/19/18 at 09:00 Diltiazem HCl (Cardizem Cd) 180 mg DAILY PO Last administered on 09/28/18 08:45; Admin Dose 180 MG; Start 09/23/18 at 09:00 Potassium Chloride (Klor-Con 10) 20 meq BID PO Last administered on 09/28/18 08:42; Admin Dose 20 MEQ; Start 09/23/18 at 09:00 Famotidine (Pepcid) 20 mg BID PO Last administered on 09/28/18 08:42; Admin Dose 20 MG; Start 09/23/18 at 21:00 Calcium Carbonate (Tums) 500 mg Q4 PRN PO indigestion; Start 09/23/18 at 15:30 Metronidazole (Flagyl) 500 mg Q8 PO Last administered on 09/28/18 06:20; Admin Dose 500 MG; Start 09/24/18 at 22:00 Levofloxacin (Levaquin) 500 mg DAILY@06 PO Last administered on 09/28/18 06:20; Admin Dose 500 MG; Start 09/25/18 at 06:00 Amiodarone HCl (Cordarone) 200 mg DAILY PO Last administered on 09/28/18 0 8:44; Admin Dose 200 MG; Start 09/26/18 at 10:00 Magnesium Oxide (Mag-Ox 400) 800 mg TID PO Last administered on 09/28/18 08:42; Admin Dose 800 MG; Start 09/27/18 at 21:00 YOLI HOROWITZ Sep 28, 2018 09:52
--- NOTE | 2018-09-28 15:17 | PN ---
Date/Time of Note Date/Time of Note DATE: 09/28/18 TIME: 15:12 Assessment/Plan VTE Prophylaxis Risk score (from Ns)>0 risk: 5 SCD applied (from Ns): Yes Pharmacological prophylaxis: heparin Lines/Catheters IV Catheter Type (from Nrs): Saline Lock Urinary Cath still in place: No Assessment/Plan Assessment/Plan 1. Severe left peripheral artery disease with infected left TMA stump - Vascular consultation appreciated. s/p Urgent left below-knee amputation on 09/13/2018 with washout. Will plan for revision vs AKA next week - Antibiotics as per ID 2. SVT secondary to A. fib with RVR - Cardiology on board and appreciate recommendations. Continue current medications and titrate to amiodarone daily. Plan to treat for 1 month duration (10/20) - Once cleared by Surgeon, will start NOAC for afib. Will have revision of stump next week so hold off for now 3. Sepsis with leukocytosis, febrile illness, and lactic acidosis secondary to lower extremity infection- resolving - remains afebrile and nl WBC - wound culture results noted - ID on board for antibiotic recommendations 4. Peripheral vascular disease. - Continue statins 5. History of renal transplant. - nephrology on board and appreciate recommendations - continue immunosuppressants - mild TWIN on am labs 6. Normocytic anemia - stable - no need for transfusions at this time 7. HLD - on statin 8. Disposition - Continue with current treatment with plans for vascular intervention next week Result Diagram: 09/28/18 0531 09/28/18 0531 Results 24hrs Laboratory Tests Test 09/28/18 05:31 White Blood Count 9.9 Red Blood Count 4.22 #L Hemoglobin 11.4 L Hematocrit 36.9 L Mean Corpuscular Volume 87.4 Mean Corpuscular Hemoglobin 27.0 L Mean Corpuscular Hemoglobin Concent 30.9 L Red Cell Distribution Width 20.3 H Platelet Count 253 Mean Platelet Volume 9.7 Immature Granulocytes % 3.500 H Neutrophils % 71.5 Lymphocytes % 9.4 L Monocytes % 10.6 Eosinophils % 4.0 Basophils % 1.0 Nucleated Red Blood Cells % 0.0 Immature Granulocytes # 0.350 H Neutrophils # 7.0 Lymphocytes # 0.9 Monocytes # 1.1 H Eosinophils # 0.4 Basophils # 0.1 Nucleated Red Blood Cells # 0.0 Sodium Level 141 Potassium Level 4.5 Chloride Level 114 H Carbon Dioxide Level 23 Anion Gap 4 L Blood Urea Nitrogen 17 Creatinine 1.27 H Est Glomerular Filtrat Rate mL/min 58 L Glucose Level 102 Calcium Level 10.1 Magnesium Level 1.5 L Total Bilirubin 0.5 Direct Bilirubin 0.00 Indirect Bilirubin 0.5 Aspartate Amino Transf (AST/SGOT) 43 Alanine Aminotransferase (ALT/SGPT) 33 Alkaline Phosphatase 126 H Total Protein 6.6 Albumin 3.1 L Globulin 3.50 H Albumin/Globulin Ratio 0.88 Subjective 24 Hr Interval Summary Free Text/Dictation Patient doing well and denies any acute issues. No overnight events. Exam/Review of Systems Exam Vitals Vital Signs Date Temp Pulse Resp B/P (MAP) Pulse Ox O2 O2 Flow FiO2 Time Delivery Rate 09/28/18 100 12:01 09/28/18 97.8 20 111/69 99 Nasal 11:15 (83) Cannula Intake and Output 09/27/18 09/27/18 09/28/18 1515:00 23:00 07:00 IntakeIntake Total 720 ml OutputOutput Total 800 ml BalanceBalance -80 ml Exam General: no acute distress. answering questions appropriately CVS: S1, S2, regular rate and rhythm. no murmurs Lungs: clear to auscultation bilaterally. no wheezing or rhonchi Abd: soft, nontender, nondistended. no rebound or guarding. bowel sounds present diffusely Ext: L BKA. no cyanosis, clubbing, or edema Skin: warm, dry. LLE dressing intact with wound vac in place Results Results 24hrs Laboratory Tests Test 09/28/18 05:31 White Blood Count 9.9 Red Blood Count 4.22 #L Hemoglobin 11.4 L Hematocrit 36.9 L Mean Corpuscular Volume 87.4 Mean Corpuscular Hemoglobin 27.0 L Mean Corpuscular Hemoglobin Concent 30.9 L Red Cell Distribution Width 20.3 H Platelet Count 253 Mean Platelet Volume 9.7 Immature Granulocytes % 3.500 H Neutrophils % 71.5 Lymphocytes % 9.4 L Monocytes % 10.6 Eosinophils % 4.0 Basophils % 1.0 Nucleated Red Blood Cells % 0.0 Immature Granulocytes # 0.350 H Neutrophils # 7.0 Lymphocytes # 0.9 Monocytes # 1.1 H Eosinophils # 0.4 Basophils # 0.1 Nucleated Red Blood Cells # 0.0 Sodium Level 141 Potassium Level 4.5 Chloride Level 114 H Carbon Dioxide Level 23 Anion Gap 4 L Blood Urea Nitrogen 17 Creatinine 1.27 H Est Glomerular Filtrat Rate mL/min 58 L Glucose Level 102 Calcium Level 10.1 Magnesium Level 1.5 L Total Bilirubin 0.5 Direct Bilirubin 0.00 Indirect Bilirubin 0.5 Aspartate Amino Transf (AST/SGOT) 43 Alanine Aminotransferase (ALT/SGPT) 33 Alkaline Phosphatase 126 H Total Protein 6.6 Albumin 3.1 L Globulin 3.50 H Albumin/Globulin Ratio 0.88 Medications Medication Current Medications Miscellaneous Information (* Miscellaneous Pharmacy Order) DURAMORPH: 0.2 MG SPI... GIVEN NEURAXIAL XX ; Start 09/13/18 at 16:30 IV Flush (NS 3 ml) 3 ml PER PROTOCOL IV ; Start 09/13/18 at 17:00 Acetaminophen (Tylenol Supp) 650 mg Q6H PRN [place] Fever; Start 09/13/18 at 17:00 Ondansetron HCl (Zofran Inj) 4 mg Q4H PRN IV NAUSEA AND/OR VOMITING; Start 09/13/18 at 17:00 Folic Acid (Folic Acid) 1 mg DAILY PO Last administered on 09/28/18 08:42; Admin Dose 1 MG; Start 09/14/18 at 09:00 Multivit/Ca Carb/ B Cmplx/FA/Prenat (Flor-Elsia) 1 tab DAILY PO Last administered on 09/28/18 08:44; Admin Dose 1 TAB; Start 09/14/18 at 09:00 Sodium Phosphate (Kphos Neutral) 1,000 mg BID PO Last administered on 09/28/18 08:43; Admin Dose 1,000 MG; Start 09/13/18 at 21:00 Hydromorphone HCl (Dilaudid) 1 mg Q4H PRN IV SEVERE PAIN LEVEL 7-10 Last administered on 09/27/18 10:09; Admin Dose 1 MG; Start 09/13/18 at 17:30 Calcitriol (Rocaltrol) 0.5 mcg DAILY PO Last administered on 09/28/18 08:42; Admin Dose 0.5 MCG; Start 09/14/18 at 09:00 Tacrolimus (Prograf) 1 mg BID PO Last administered on 09/28/18 08:43; Admin Dose 1 MG; Start 09/13/18 at 22:00 Leflunomide (Arava) 20 mg DAILY PO Last administered on 09/28/18 08:41; Admin Dose 20 MG; Start 09/14/18 at 09:00 Acetaminophen (Tylenol Tab) 650 mg Q6H PRN PO MILD PAIN(1-3)OR ELEVATED TEMP Last administered on 09/17/18 20:44; Admin Dose 650 MG; Start 09/17/18 at 17:00 Enoxaparin Sodium (Lovenox) 40 mg DAILY SC Last administered on 09/28/18 08:49; Admin Dose 40 MG; Start 09/19/18 at 09:00 Diltiazem HCl (Cardizem Cd) 180 mg DAILY PO Last administered on 09/28/18 08:45; Admin Dose 180 MG; Start 09/23/18 at 09:00 Potassium Chloride (Klor-Con 10) 20 meq BID PO Last administered on 09/28/18 08:42; Admin Dose 20 MEQ; Start 09/23/18 at 09:00 Famotidine (Pepcid) 20 mg BID PO Last administered on 09/28/18 08:42; Admin Dose 20 MG; Start 09/23/18 at 21:00 Calcium Carbonate (Tums) 500 mg Q4 PRN PO indigestion; Start 09/23/18 at 15:30 Metronidazole (Flagyl) 500 mg Q8 PO Last administered on 09/28/18 13:35; Admin Dose 500 MG; Start 09/24/18 at 22:00 Levofloxacin (Levaquin) 500 mg DAILY@06 PO Last administered on 09/28/18 06:20; Admin Dose 500 MG; Start 09/25/18 at 06:00 Amiodarone HCl (Cordarone) 200 mg DAILY PO Last administered on 09/28/18 08:44; Admin Dose 200 MG; Start 09/26/18 at 10:00 Magnesium Oxide (Mag-Ox 400) 800 mg TID PO Last administered on 09/28/18 13:36; Admin Dose 800 MG; Start 09/27/18 at 21:00 ZAN BURKETT MD Sep 28, 2018 15:17
--- NOTE | 2018-09-28 17:08 | CONS ---
Assessment/Plan Assessment/Plan Assessment/Plan (Daily) 1. Kidney transplant status. DDRT 2006 [facility] Creatinine is a little higher today Labs in am with tac level 2. s/p left below the knee amputation. Stump wound open with wound vac 3. Hypertension Controlled 4. Peripheral artery disease 5. Anemia Hb stable 6. Hyperlipidemia 7. Hypomagnesemia continue MgOxide Consultation Date/Type/Reason Admit Date/Time September 13, 2018 at 11:48 Initial Consult Date 09/20/18 Type of Consult Nephrology Date/Time of Note DATE: 09/28/18 TIME: 17:03 Exam/Review of Systems Exam Vitals Vital Signs Date Temp Pulse Resp B/P (MAP) Pulse Ox O2 O2 Flow FiO2 Time Delivery Rate 09/28/18 98.0 100 20 112/62 100 Nasal 15:28 (79) Cannula Intake and Output 09/27/18 09/27/18 09/28/18 1515:00 23:00 07:00 IntakeIntake Total 720 ml OutputOutput Total 800 ml BalanceBalance -80 ml Constitutional: alert Head: normocephalic Neck: No jvd Respiratory: clear to auscultation Cardiovascular: regular rate and rhythm Extremities: No edema Results Result Diagram: 09/28/18 0531 09/28/18 0531 Results 24hrs Laboratory Tests Test 09/28/18 05:31 White Blood Count 9.9 Red Blood Count 4.22 #L Hemoglobin 11.4 L Hematocrit 36.9 L Mean Corpuscular Volume 87.4 Mean Corpuscular Hemoglobin 27.0 L Mean Corpuscular Hemoglobin Concent 30.9 L Red Cell Distribution Width 20.3 H Platelet Count 253 Mean Platelet Volume 9.7 Immature Granulocytes % 3.500 H Neutrophils % 71.5 Lymphocytes % 9.4 L Monocytes % 10.6 Eosinophils % 4.0 Basophils % 1.0 Nucleated Red Blood Cells % 0.0 Immature Granulocytes # 0.350 H Neutrophils # 7.0 Lymphocytes # 0.9 Monocytes # 1.1 H Eosinophils # 0.4 Basophils # 0.1 Nucleated Red Blood Cells # 0.0 Sodium Level 141 Potassium Level 4.5 Chloride Level 114 H Carbon Dioxide Level 23 Anion Gap 4 L Blood Urea Nitrogen 17 Creatinine 1.27 H Est Glomerular Filtrat Rate mL/min 58 L Glucose Level 102 Calcium Level 10.1 Magnesium Level 1.5 L Total Bilirubin 0.5 Direct Bilirubin 0.00 Indirect Bilirubin 0.5 Aspartate Amino Transf (AST/SGOT) 43 Alanine Aminotransferase (ALT/SGPT) 33 Alkaline Phosphatase 126 H Total Protein 6.6 Albumin 3.1 L Globulin 3.50 H Albumin/Globulin Ratio 0.88 Medications Medication Current Medications Miscellaneous Information (* Miscellaneous Pharmacy Order) DURAMORPH: 0.2 MG SPI... GIVEN NEURAXIAL XX ; Start 09/13/18 at 16:30 IV Flush (NS 3 ml) 3 ml PER PROTOCOL IV ; Start 09/13/18 at 17:00 Acetaminophen (Tylenol Supp) 650 mg Q6H PRN [place] Fever; Start 09/13/18 at 17:00 Ondansetron HCl (Zofran Inj) 4 mg Q4H PRN IV NAUSEA AND/OR VOMITING; Start 09/13/18 at 17:00 Folic Acid (Folic Acid) 1 mg DAILY PO Last administered on 09/28/18at 08:42; Admin Dose 1 MG; Start 09/14/18 at 09:00 Multivit/Ca Carb/ B Cmplx/FA/Prenat (Flor-Elisa) 1 tab DAILY PO Last administered on 09/28/18 08:44; Admin Dose 1 TAB; Start 09/14/18 at 09:00 Sodium Phosphate (Kphos Neutral) 1,000 mg BID PO Last administered on 09/28/18 08:43; Admin Dose 1,000 MG; Start 09/13/18 at 21:00 Hydromorphone HCl (Dilaudid) 1 mg Q4H PRN IV SEVERE PAIN LEVEL 7-10 Last administered on 09/27/18at 10:09; Admin Dose 1 MG; Start 09/13/18 at 17:30 Calcitriol (Rocaltrol) 0.5 mcg DAILY PO Last administered on 09/28/18 08:42; Admin Dose 0.5 MCG; Start 09/14/18 at 09:00 Tacrolimus (Prograf) 1 mg BID PO Last administered on 09/28/18 08:43; Admin Dose 1 MG; Start 09/13/18 at 22:00 Leflunomide (Arava) 20 mg DAILY PO Last administered on 09/28/18 08:41; Admin Dose 20 MG; Start 09/14/18 at 09:00 Acetaminophen (Tylenol Tab) 650 mg Q6H PRN PO MILD PAIN(1-3)OR ELEVATED TEMP Last administered on 09/17/18 20:44; Admin Dose 650 MG; Start 09/17/18 at 17:00 Enoxaparin Sodium (Lovenox) 40 mg DAILY SC Last administered on 09/28/18 08:49; Admin Dose 40 MG; Start 09/19/18 at 09:00 Diltiazem HCl (Cardizem Cd) 180 mg DAILY PO Last administered on 09/28/18 08:45; Admin Dose 180 MG; Start 09/23/18 at 09:00 Potassium Chloride (Klor-Con 10) 20 meq BID PO Last administered on 09/28/18 08:42; Admin Dose 20 MEQ; Start 09/23/18 at 09:00 Famotidine (Pepcid) 20 mg BID PO Last administered on 09/28/18 08:42; Admin Dose 20 MG; Start 09/23/18 at 21:00 Calcium Carbonate (Tums) 500 mg Q4 PRN PO indigestion; Start 09/23/18 at 15:30 Metronidazole (Flagyl) 500 mg Q8 PO Last administered on 09/28/18 13:35; Admin Dose 500 MG; Start 09/24/18 at 22:00 Levofloxacin (Levaquin) 500 mg DAILY@06 PO Last administered on 09/28/18 06:20; Admin Dose 500 MG; Start 09/25/18 at 06:00 Amiodarone HCl (Cordarone) 200 mg DAILY PO Last administered on 09/28/18 08:44; Admin Dose 200 MG; Start 09/26/18 at 10:00 Magnesium Oxide (Mag-Ox 400) 800 mg TID PO Last administered on 09/28/18 13:36; Admin Dose 800 MG; Start 09/27/18 at 21:00 ROBERTH MAYES MD Sep 28, 2018 17:07
[2018-09-29] VITALS (10 sets, daily range): BP systolic 99–153; BP diastolic 63–87; PULSE 92–128; RESP 18–20
[2018-09-29] MEDS: metroNIDAZOLE 500 MG TAB PO SCH ×3 (06:09→21:33)
[2018-09-29] MEDS: LEVOFLOXACIN 500 MG TAB PO SCH (06:09)
[2018-09-29] MEDS ORDERED: MAGNESIUM SULFATE 2 GM/50 ML 50 ML IVPB ONE (08:30)
[2018-09-29] MEDS: MULTIVIT/CA CARB/B CMPLX/FA TAB PO SCH (08:48)
[2018-09-29] MEDS: POTASSIUM CHLORIDE (SR) 10 MEQ TAB PO SCH ×2 (08:48→21:33)
[2018-09-29] MEDS: LEFLUNOMIDE 20 MG TAB PO SCH (08:48)
[2018-09-29] MEDS: TACROLIMUS 1 MG CAP PO SCH ×2 (08:48→21:33)
[2018-09-29] MEDS: FOLIC ACID 1 MG TAB PO SCH (08:48)
[2018-09-29] MEDS: FAMOTIDINE 20 MG TAB PO SCH ×2 (08:48→21:33)
[2018-09-29] MEDS: MAGNESIUM OXIDE 400 MG TAB PO SCH ×3 (08:48→21:33)
[2018-09-29] MEDS: DILTIAZEM (CD) 180 MG CAP PO SCH (08:49)
[2018-09-29] MEDS: AMIODARONE 200 MG TAB PO SCH (08:49)
[2018-09-29] MEDS: ENOXAPARIN 40 MG/0.4 ML SYG SC SCH (08:57)
[2018-09-29] MEDS: HYDROmorphONE 1 MG/ML SYG IV PRN (09:06)
--- NOTE | 2018-09-29 09:30 | CONS ---
[facility] HCIS Consult Follow-up Patient Name: Alphonso Lee Unit Number: [id number] Date of : 1960 Patient Status: Admitted Inpatient Attending Doctor: Wanda Eric MD Edit: CLARE PIRES M.D. 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 CoNS is a likely colonizer; Fungal culture 09/19/18 shows growth of mold present, submitted reference lab for identification. - h/o draining wound, necrosis and infection of L TMA site. ESR 121 on 09/12/2018. 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 All the infected tissue was removed by L BKA according to Dr. Cortes progress note - h/o gangrene and infection of L foot - afib with RVR- converted to SR - hypertension - h/o renal transplant at [facility] in 2006, maintained on tacrolimus - immunocompromised status - expected post-op anemia - transaminitis - improving - hypomagnesemia - repleted - adverse reaction to cefazolin (hives), meropenem (pruritus) Recommendations: - Continue levofloxacin (09/17/2018-) and metronidazole (09/17/2018-) for stump infection probably to complete 2 weeks total; s/p aztreonam (09/13/2018- 09/24/2018) - Pt will need vigilant and close ID f/u to ensure no recurrent infectious process; if this can be ensured then abx course can be shorter as OM unlikely - Dr. Cortes planning debridement and possible closure next week; if AKA then likely will not need more abx afterwards - F/u fungal culture 09/19/18 - this is a send out test to [facility] - prelim shows growth of mold present - Trend WBC and fever curve - improving - Requested nursing to photograph wound with next bandage change via misc. order - next dressing change is planned for today. Plan was d/w patient and with Dr. Pires. Consultation Date/Type/Reason Admit Date/Time September 13, 2018 at 11:48 Initial Consult Date 09/13/18 Type of Consult ID Date/Time of Note DATE: 09/29/18 TIME: 09:25 24 HR Interval Summary Free Text/Dictation The patient denied all ROS when reviewed. Stated that when he has the dressing and wound vac changed it is "very painful." I called lab re: the fungal culture is showing growth of mold, per micro the test is a send out to [facility], thus she cannot tell me what the staining of the culture looks like thusfar. Exam/Review of Systems Exam Vitals Vital Signs Date Temp Pulse Resp B/P (MAP) Pulse Ox O2 O2 Flow FiO2 Time Delivery Rate 09/29/18 128 08:01 09/29/18 97.9 20 153/87 Room Air 07:31 (109) 09/29/18 94 04:00 Allergies Coded Allergies cefazolin (Verified Allergy, Intermediate, HIVES, 09/14/18) meropenem (Verified Allergy, Intermediate, 09/14/18) pruritus (observed on 09/13/2018) Intake and Output 09/28/18 09/28/18 09/29/18 1515:00 23:00 07:00 IntakeIntake Total 500 ml 400 ml OutputOutput Total 600 ml 500 ml BalanceBalance -100 ml -100 ml Exam Constitutional: well developed, other (awake, smiling, In NAD) Psych: no complaints, nl mood/affect Head: normocephalic, atraumatic Eyes: nl conjunctiva, nl lids, nl sclera ENMT: nl external ears & nose, nl nasal mucosa & septum, mucosa pink and moist Neck: supple, non-tender Respiratory: clear to auscultation, normal air movement Cardiovascular: regular rate and rhythm, nl pulses Gastrointestinal: soft, non-tender, bowel sounds (normoactive) Genitourinary - Male: other (No f/c) Musculoskeletal: other (L BKA site with wound vac in place - current wound vac container is empty, wrapped with a c/d/i real bandage - reviewed nsg notes/pics in [facility] most recent pic was from 09/23, brace currently off.) Extremities: normal pulses; No edema 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: nl mental status, nl speech Skin: nl turgor; No rash or lesions Results Result Diagram: 09/29/18 0459 09/29/18 0459 Results 24hrs Laboratory Tests Test 09/29/18 04:59 White Blood Count 9.1 Red Blood Count 3.92 L Hemoglobin 10.7 L Hematocrit 34.6 L Mean Corpuscular Volume 88.3 Mean Corpuscular Hemoglobin 27.3 L Mean Corpuscular Hemoglobin Concent 30.9 L Red Cell Distribution Width 20.4 H Platelet Count 238 Mean Platelet Volume 9.8 Immature Granulocytes % 3.200 H Neutrophils % 68.9 Lymphocytes % 11.7 L Monocytes % 10.8 Eosinophils % 4.2 Basophils % 1.2 Nucleated Red Blood Cells % 0.0 Immature Granulocytes # 0.290 H Neutrophils # 6.3 Lymphocytes # 1.1 Monocytes # 1.0 H Eosinophils # 0.4 Basophils # 0.1 Nucleated Red Blood Cells # 0.0 Sodium Level 142 Potassium Level 4.5 Chloride Level 114 H Carbon Dioxide Level 22 Anion Gap 6 Blood Urea Nitrogen 18 Creatinine 1.35 H Est Glomerular Filtrat Rate mL/min 54 L Glucose Level 100 Calcium Level 9.7 Magnesium Level 1.5 L Total Bilirubin 0.4 Direct Bilirubin 0.00 Indirect Bilirubin 0.4 Aspartate Amino Transf (AST/SGOT) 42 Alanine Aminotransferase (ALT/SGPT) 36 Alkaline Phosphatase 131 H Total Protein 6.7 Albumin 3.1 L Globulin 3.60 H Albumin/Globulin Ratio 0.86 Medications Medication Current Medications Miscellaneous Information (* Miscellaneous Pharmacy Order) DURAMORPH: 0.2 MG SPI... GIVEN NEURAXIAL XX ; Start 09/13/18 at 16:30 IV Flush (NS 3 ml) 3 ml PER PROTOCOL IV ; Start 09/13/18 at 17:00 Acetaminophen (Tylenol Supp) 650 mg Q6H PRN [place] Fever; Start 09/13/18 at 17:00 Ondansetron HCl (Zofran Inj) 4 mg Q4H PRN IV NAUSEA AND/OR VOMITING; Start 09/13/18 at 17:00 Folic Acid (Folic Acid) 1 mg DAILY PO Last administered on 09/29/18 08:48; Admin Dose 1 MG; Start 09/14/18 at 09:00 Multivit/Ca Carb/ B Cmplx/FA/Prenat (Flor-Elisa) 1 tab DAILY PO Last administered on 09/29/18 08:48; Admin Dose 1 TAB; Start 09/14/18 at 09:00 Sodium Phosphate (Kphos Neutral) 1,000 mg BID PO Last administered on 09/28/18 21:38; Admin Dose 1,000 MG; Start 09/13/18 at 21:00 Hydromorphone HCl (Dilaudid) 1 mg Q4H PRN IV SEVERE PAIN LEVEL 7-10 Last administered on 09/29/18 09:06; Admin Dose 1 MG; Start 09/13/18 at 17:30 Tacrolimus (Prograf) 1 mg BID PO Last administered on 09/29/18 08:48; Admin Dose 1 MG; Start 09/13/18 at 22:00 Leflunomide (Arava) 20 mg DAILY PO Last administered on 09/29/18 08:48; Admin Dose 20 MG; Start 09/14/18 at 09:00 Acetaminophen (Tylenol Tab) 650 mg Q6H PRN PO MILD PAIN(1-3)OR ELEVATED TEMP Last administered on 09/17/18 20:44; Admin Dose 650 MG; Start 09/17/18 at 17:00 Enoxaparin Sodium (Lovenox) 40 mg DAILY SC Last administered on 09/29/18 08:57; Admin Dose 40 MG; Start 09/19/18 at 09:00 Diltiazem HCl (Cardizem Cd) 180 mg DAILY PO Last administered on 09/29/18 08:49; Admin Dose 180 MG; Start 09/23/18 at 09:00 Potassium Chloride (Klor-Con 10) 20 meq BID PO Last administered on 09/29/18 08:48; Admin Dose 20 MEQ; Start 6/10/19 at 09:00 Famotidine (Pepcid) 20 mg BID PO Last administered on 09/29/18 08:48; Admin Dose 20 MG; Start 09/23/18 at 21:00 Metronidazole (Flagyl) 500 mg Q8 PO Last administered on 09/29/18 06:09; Admin Dose 500 MG; Start 09/24/18 at 22:00 Levofloxacin (Levaquin) 500 mg DAILY@06 PO Last administered on 09/29/18 06:09; Admin Dose 500 MG; Start 09/25/18 at 06:00 Amiodarone HCl (Cordarone) 200 mg DAILY PO Last administered on 09/29/18 08:49; Admin Dose 200 MG; Start 09/26/18 at 10:00 Magnesium Oxide (Mag-Ox 400) 800 mg TID PO Last administered on 09/29/18 08:48; Admin Dose 800 MG; Start 09/27/18 at 21:00 Magnesium Sulfate 50 ml @ 25 mls/hr ONCE ONCE IVPB Last administered on 09/29/18 08:47; Admin Dose 25 MLS/HR; Start 09/29/18 at 08:30; Stop 09/29/18 at 10:29 WM JOSUE NP Sep 29, 2018 09:30
--- NOTE | 2018-09-29 11:17 | PN ---
Date/Time of Note Date/Time of Note DATE: 09/29/18 TIME: 11:14 Assessment/Plan VTE Prophylaxis Risk score (from Ns)>0 risk: 4 SCD applied (from Ns): Yes Pharmacological prophylaxis: heparin Lines/Catheters [facility] Saline Lock Urinary Cath still in place: No Assessment/Plan Assessment/Plan 1. Severe left peripheral artery disease with infected left TMA stump - Vascular consultation appreciated. s/p Urgent left below-knee amputation on 09/13/2018 with washout. Will plan for further surgical intervention next week - Antibiotics as per ID 2. SVT secondary to A. fib with RVR - patient with sinus tachycardia up to 128 this am. When HR better controlled with downgrade to Med/Surg - Cardiology on board and appreciate recommendations. Continue on amiodarone until 10/20, 1 month tx. continue on diltiazem - Once cleared by Surgeon, will start NOAC for afib. Will have revision of stump next week so hold off for now 3. Sepsis with leukocytosis, febrile illness, and lactic acidosis secondary to lower extremity infection- resolving - remains afebrile and nl WBC - wound culture results noted - ID on board for antibiotic recommendations 4. Peripheral vascular disease. - Continue statins 5. History of renal transplant. - nephrology on board and appreciate recommendations - continue immunosuppressants - creatinine is trending up 6. Normocytic anemia - stable - no need for transfusions at this time 7. HLD - on statin 8. Disposition - Continue with current treatment, pending surgical intervention tomorrow. Result Diagram: 09/29/18 0459 09/29/18 0459 Results 24hrs Laboratory Tests Test 09/29/18 04:59 White Blood Count 9.1 Red Blood Count 3.92 L Hemoglobin 10.7 L Hematocrit 34.6 L Mean Corpuscular Volume 88.3 Mean Corpuscular Hemoglobin 27.3 L Mean Corpuscular Hemoglobin Concent 30.9 L Red Cell Distribution Width 20.4 H Platelet Count 238 Mean Platelet Volume 9.8 Immature Granulocytes % 3.200 H Neutrophils % 68.9 Lymphocytes % 11.7 L Monocytes % 10.8 Eosinophils % 4.2 Basophils % 1.2 Nucleated Red Blood Cells % 0.0 Immature Granulocytes # 0.290 H Neutrophils # 6.3 Lymphocytes # 1.1 Monocytes # 1.0 H Eosinophils # 0.4 Basophils # 0.1 Nucleated Red Blood Cells # 0.0 Sodium Level 142 Potassium Level 4.5 Chloride Level 114 H Carbon Dioxide Level 22 Anion Gap 6 Blood Urea Nitrogen 18 Creatinine 1.35 H Est Glomerular Filtrat Rate mL/min 54 L Glucose Level 100 Calcium Level 9.7 Magnesium Level 1.5 L Total Bilirubin 0.4 Direct Bilirubin 0.00 Indirect Bilirubin 0.4 Aspartate Amino Transf (AST/SGOT) 42 Alanine Aminotransferase (ALT/SGPT) 36 Alkaline Phosphatase 131 H Total Protein 6.7 Albumin 3.1 L Globulin 3.60 H Albumin/Globulin Ratio 0.86 Subjective 24 Hr Interval Summary Free Text/Dictation Patient is doing well and denies any acute issues. Still with tachycardia and HR this am was 128. Denies any chest pain or shortness of breath. Exam/Review of Systems Exam Vitals Vital Signs Date Temp Pulse Resp B/P (MAP) Pulse Ox O2 O2 Flow FiO2 Time Delivery Rate 09/29/18 128 08:01 09/29/18 97.9 20 153/87 Room Air 07:31 (109) 09/29/18 94 04:00 Intake and Output 09/28/18 09/28/18 09/29/18 1515:00 23:00 07:00 IntakeIntake Total 500 ml 400 ml OutputOutput Total 600 ml 500 ml BalanceBalance -100 ml -100 ml Exam General: no acute distress. answering questions appropriately CVS: S1, S2, regular rate and rhythm. no murmurs Lungs: clear to auscultation bilaterally. no wheezing or rhonchi Abd: soft, nontender, nondistended. no rebound or guarding. bowel sounds present diffusely Ext: L BKA. no cyanosis, clubbing, or edema Skin: warm, dry. LLE dressing intact with wound vac in place Results Results 24hrs Laboratory Tests Test 09/29/18 04:59 White Blood Count 9.1 Red Blood Count 3.92 L Hemoglobin 10.7 L Hematocrit 34.6 L Mean Corpuscular Volume 88.3 Mean Corpuscular Hemoglobin 27.3 L Mean Corpuscular Hemoglobin Concent 30.9 L Red Cell Distribution Width 20.4 H Platelet Count 238 Mean Platelet Volume 9.8 Immature Granulocytes % 3.200 H Neutrophils % 68.9 Lymphocytes % 11.7 L Monocytes % 10.8 Eosinophils % 4.2 Basophils % 1.2 Nucleated Red Blood Cells % 0.0 Immature Granulocytes # 0.290 H Neutrophils # 6.3 Lymphocytes # 1.1 Monocytes # 1.0 H Eosinophils # 0.4 Basophils # 0.1 Nucleated Red Blood Cells # 0.0 Sodium Level 142 Potassium Level 4.5 Chloride Level 114 H Carbon Dioxide Level 22 Anion Gap 6 Blood Urea Nitrogen 18 Creatinine 1.35 H Est Glomerular Filtrat Rate mL/min 54 L Glucose Level 100 Calcium Level 9.7 Magnesium Level 1.5 L Total Bilirubin 0.4 Direct Bilirubin 0.00 Indirect Bilirubin 0.4 Aspartate Amino Transf (AST/SGOT) 42 Alanine Aminotransferase (ALT/SGPT) 36 Alkaline Phosphatase 131 H Total Protein 6.7 Albumin 3.1 L Globulin 3.60 H Albumin/Globulin Ratio 0.86 Medications Medication Current Medications Miscellaneous Information (* Miscellaneous Pharmacy Order) DURAMORPH: 0.2 MG S PI... GIVEN NEURAXIAL XX ; Start 09/13/18 at 16:30 IV Flush (NS 3 ml) 3 ml PER PROTOCOL IV ; Start 09/13/18 at 17:00 Acetaminophen (Tylenol Supp) 650 mg Q6H PRN [place] Fever; Start 09/13/18 at 17:00 Ondansetron HCl (Zofran Inj) 4 mg Q4H PRN IV NAUSEA AND/OR VOMITING; Start 09/13/18 at 17:00 Folic Acid (Folic Acid) 1 mg DAILY PO Last administered on 09/29/18at 08:48; Admin Dose 1 MG; Start 09/14/18 at 09:00 Multivit/Ca Carb/ B Cmplx/FA/Prenat (Flor-Elisa) 1 tab DAILY PO Last administered on 09/29/18at 08:48; Admin Dose 1 TAB; Start 09/14/18 at 09:00 Sodium Phosphate (Kphos Neutral) 1,000 mg BID PO Last administered on 09/28/18at 21:38; Admin Dose 1,000 MG; Start 09/13/18 at 21:00 Hydromorphone HCl (Dilaudid) 1 mg Q4H PRN IV SEVERE PAIN LEVEL 7-10 Last administered on 09/29/18at 09:06; Admin Dose 1 MG; Start 09/13/18 at 17:30 Tacrolimus (Prograf) 1 mg BID PO Last administered on 09/29/18at 08:48; Admin Dose 1 MG; Start 09/13/18 at 22:00 Leflunomide (Arava) 20 mg DAILY PO Last administered on 09/29/18 08:48; Admin Dose 20 MG; Start 09/14/18 at 09:00 Acetaminophen (Tylenol Tab) 650 mg Q6H PRN PO MILD PAIN(1-3)OR ELEVATED TEMP Last administered on 09/17/18 20:44; Admin Dose 650 MG; Start 09/17/18 at 17:00 Enoxaparin Sodium (Lovenox) 40 mg DAILY SC Last administered on 09/29/18 08:57; Admin Dose 40 MG; Start 09/19/18 at 09:00 Diltiazem HCl (Cardizem Cd) 180 mg DAILY PO Last administered on 09/29/18 08:49; Admin Dose 180 MG; Start 09/23/18 at 09:00 Potassium Chloride (Klor-Con 10) 20 meq BID PO Last administered on 09/29/18 08:48; Admin Dose 20 MEQ; Start 09/23/18 at 09:00 Famotidine (Pepcid) 20 mg BID PO Last administered on 09/29/18 08:48; Admin Dose 20 MG; Start 09/23/18 at 21:00 Metronidazole (Flagyl) 500 mg Q8 PO Last administered on 09/29/18 06:09; Admin Dose 500 MG; Start 09/24/18 at 22:00 Levofloxacin (Levaquin) 500 mg DAILY@06 PO Last administered on 09/29/18 06:09; Admin Dose 500 MG; Start 09/25/18 at 06:00 Amiodarone HCl (Cordarone) 200 mg DAILY PO Last administered on 09/29/18 08:49; Admin Dose 200 MG; Start 09/26/18 at 10:00 Magnesium Oxide (Mag-Ox 400) 800 mg TID PO Last administered on 09/29/18 08:48; Admin Dose 800 MG; Start 09/27/18 at 21:00 ZAN BURKETT MD Sep 29, 2018 11:17
[2018-09-29] MEDS: SOD PHOS MONO/DIBAS 250 MG TAB PO SCH ×2 (12:49→21:32)
--- NOTE | 2018-09-29 14:01 | CONS ---
Assessment/Plan Assessment/Plan Assessment/Plan (Daily) 1. Kidney transplant status. DDRT 2006 [facility] Creatinine slowly increasing May be volume depleted Start IV normal saline Tacrolimus level today stop calcitriol and calcium carbonate due to high calcium level 2. s/p left below the knee amputation. Stump wound open with wound vac 3. Hypertension Controlled 4. Peripheral artery disease 5. Anemia Hb stable 6. Hyperlipidemia 7. Hypomagnesemia continue MgOxide MgSO4 also given today Consultation Date/Type/Reason Admit Date/Time September 13, 2018 at 11:48 Initial Consult Date 09/20/18 Type of Consult Nephrology Date/Time of Note DATE: 09/29/18 TIME: 13:57 24 HR Interval Summary Free Text/Dictation No complaints Exam/Review of Systems Exam Vitals Vital Signs Date Temp Pulse Resp B/P (MAP) Pulse Ox O2 O2 Flow FiO2 Time Delivery Rate 09/29/18 98 12:01 09/29/18 97.6 20 99/63 (75) 95 Room Air 11:40 Intake and Output 09/28/18 09/28/18 09/29/18 1515:00 23:00 07:00 IntakeIntake Total 500 ml 400 ml OutputOutput Total 600 ml 500 ml BalanceBalance -100 ml -100 ml Constitutional: alert ENMT: other (dry mucus membranes) Respiratory: clear to auscultation Cardiovascular: regular rate and rhythm Gastrointestinal: soft, non-tender Extremities: No edema Results Result Diagram: 09/29/18 0459 09/29/18 0459 Results 24hrs Laboratory Tests Test 09/29/18 04:59 White Blood Count 9.1 Red Blood Count 3.92 L Hemoglobin 10.7 L Hematocrit 34.6 L Mean Corpuscular Volume 88.3 Mean Corpuscular Hemoglobin 27.3 L Mean Corpuscular Hemoglobin Concent 30.9 L Red Cell Distribution Width 20.4 H Platelet Count 238 Mean Platelet Volume 9.8 Immature Granulocytes % 3.200 H Neutrophils % 68.9 Lymphocytes % 11.7 L Monocytes % 10.8 Eosinophils % 4.2 Basophils % 1.2 Nucleated Red Blood Cells % 0.0 Immature Granulocytes # 0.290 H Neutrophils # 6.3 Lymphocytes # 1.1 Monocytes # 1.0 H Eosinophils # 0.4 Basophils # 0.1 Nucleated Red Blood Cells # 0.0 Sodium Level 142 Potassium Level 4.5 Chloride Level 114 H Carbon Dioxide Level 22 Anion Gap 6 Blood Urea Nitrogen 18 Creatinine 1.35 H Est Glomerular Filtrat Rate mL/min 54 L Glucose Level 100 Calcium Level 9.7 Magnesium Level 1.5 L Total Bilirubin 0.4 Direct Bilirubin 0.00 Indirect Bilirubin 0.4 Aspartate Amino Transf (AST/SGOT) 42 Alanine Aminotransferase (ALT/SGPT) 36 Alkaline Phosphatase 131 H Total Protein 6.7 Albumin 3.1 L Globulin 3.60 H Albumin/Globulin Ratio 0.86 Medications Medication Current Medications Miscellaneous Information (* Miscellaneous Pharmacy Order) DURAMORPH: 0.2 MG SPI... GIVEN NEURAXIAL XX ; Start 09/13/18 at 16:30 IV Flush (NS 3 ml) 3 ml PER PROTOCOL IV ; Start 09/13/18 at 17:00 Acetaminophen (Tylenol Supp) 650 mg Q6H PRN [place] Fever; Start 09/13/18 at 17:00 Ondansetron HCl (Zofran Inj) 4 mg Q4H PRN IV NAUSEA AND/OR VOMITING; Start 09/13/18 at 17:00 Folic Acid (Folic Acid) 1 mg DAILY PO Last administered on 09/29/18at 08:48; Admin Dose 1 MG; Start 09/14/18 at 09:00 Multivit/Ca Carb/ B Cmplx/FA/Prenat (Flor-Elisa) 1 tab DAILY PO Last administered on 09/29/18 08:48; Admin Dose 1 TAB; Start 09/14/18 at 09:00 Sodium Phosphate (Kphos Neutral) 1,000 mg BID PO Last administered on 09/29/18at 12:49; Admin Dose 1,000 MG; Start 09/13/18 at 21:00 Hydromorphone HCl (Dilaudid) 1 mg Q4H PRN IV SEVERE PAIN LEVEL 7-10 Last admi nistered on 09/29/18 09:06; Admin Dose 1 MG; Start 09/13/18 at 17:30 Tacrolimus (Prograf) 1 mg BID PO Last administered on 09/29/18 08:48; Admin Dose 1 MG; Start 09/13/18 at 22:00 Leflunomide (Arava) 20 mg DAILY PO Last administered on 09/29/18 08:48; Admin Dose 20 MG; Start 09/14/18 at 09:00 Acetaminophen (Tylenol Tab) 650 mg Q6H PRN PO MILD PAIN(1-3)OR ELEVATED TEMP Last administered on 09/17/18 20:44; Admin Dose 650 MG; Start 09/17/18 at 17:00 Enoxaparin Sodium (Lovenox) 40 mg DAILY SC Last administered on 09/29/18 08:57; Admin Dose 40 MG; Start 09/19/18 at 09:00 Diltiazem HCl (Cardizem Cd) 180 mg DAILY PO Last administered on 09/29/18 08:49; Admin Dose 180 MG; Start 09/23/18 at 09:00 Potassium Chloride (Klor-Con 10) 20 meq BID PO Last administered on 09/29/18 08:48; Admin Dose 20 MEQ; Start 09/23/18 at 09:00 Famotidine (Pepcid) 20 mg BID PO Last administered on 09/29/18 08:48; Admin Dose 20 MG; Start 09/23/18 at 21:00 Metronidazole (Flagyl) 500 mg Q8 PO Last administered on 09/29/18 06:09; Admin Dose 500 MG; Start 09/24/18 at 22:00 Levofloxacin (Levaquin) 500 mg DAILY@06 PO Last administered on 09/29/18 06:09; Admin Dose 500 MG; Start 09/25/18 at 06:00 Amiodarone HCl (Cordarone) 200 mg DAILY PO Last administered on 09/29/18 08:49; Admin Dose 200 MG; Start 09/26/18 at 10:00 Magnesium Oxide (Mag-Ox 400) 800 mg TID PO Last administered on 09/29/18 12:49; Admin Dose 800 MG; Start 09/27/18 at 21:00 ROBERTH MAYES MD Sep 29, 2018 14:01
[2018-09-29] MEDS: SOD CHLORIDE 0.9% 1,000 ML IV SCH (15:20)
[2018-09-30] VITALS (12 sets, daily range): BP systolic 94–125; BP diastolic 58–81; PULSE 92–111; RESP 16–20
[2018-09-30] MEDS: SOD CHLORIDE 0.9% 1,000 ML IV SCH ×2 (04:10→17:43)
[2018-09-30] MEDS: metroNIDAZOLE 500 MG TAB PO SCH ×3 (06:15→22:08)
[2018-09-30] MEDS: LEVOFLOXACIN 500 MG TAB PO SCH (06:15)
--- NOTE | 2018-09-30 08:07 | CONS ---
Assessment/Plan Assessment/Plan Hospital Course (Demo Recall) 1. Kidney transplant status. The patient had a cadaveric kidney transplant in 2006. He is on immunosuppressive therapy. His renal function has decreased some and his serum creatinine today is 1.35 mg which is the same as yesterday. He is getting some IV fluids to maintain volume status. 2. 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 His left foot was infected and gangrenous. He now has a L stump that is draining dark bloody purulent material . He underwent a second surgery last week. The left stump wound was opened, drained, debrided and washed out. He now has a drain leading to a wound VAC on the left knee stump. 3. Hypertension 4. Peripheral artery disease 5. Anemia , is improving 6. Hyperlipidemia. 7. Hypomagnesemia, I suspect he is loosing magnesium through kidney . I have started him on an oral magnesium supplement and I have had to increase the dose to 4 times a day because of continued low serum magnesium level. 8. Hypokalemia. Potassium is back to normal. I have increased his potassium supplements. I will order labs for tomorrow. Consultation Date/Type/Reason Admit Date/Time September 13, 2018 at 11:48 Initial Consult Date 09/13/18 Type of Consult Nephrology Date/Time of Note DATE: 09/30/18 TIME: 08:03 24 HR Interval Summary Free Text/Dictation Patient is being seen in nephrologic follow-up. He has a history of a kidney transplant. He is awake and alert. He is sitting up eating breakfast. He has no complaints. Constitutional: no complaints Exam/Review of Systems Exam Vitals Vital Signs Date Temp Pulse Resp B/P (MAP) Pulse Ox O2 O2 Flow FiO2 Time Delivery Rate 09/30/18 98.7 93 18 114/77 98 07:18 (89) 09/29/18 Room Air 15:21 Intake and Output 09/29/18 09/29/18 09/30/18 1515:00 23:00 07:00 IntakeIntake Total 720 ml 480 ml OutputOutput Total 500 ml 1000 ml BalanceBalance 220 ml -520 ml Exam Left leg is status post a below the knee amputation. The knee stump has a drain going to a wound VAC. Constitutional: alert, oriented, frail Respiratory: clear to auscultation, normal air movement Cardiovascular: regular rate and rhythm Gastrointestinal: soft, non-tender Results Result Diagram: 09/30/18 0530 09/30/18 0545 Results 24hrs Laboratory Tests Test 09/30/18 05:30 09/30/18 05:45 White Blood Count 7.7 Red Blood Count 3.70 L Hemoglobin 10.0 L Hematocrit 32.9 L Mean Corpuscular Volume 88.9 Mean Corpuscular Hemoglobin 27.0 L Mean Corpuscular Hemoglobin Concent 30.4 L Red Cell Distribution Width 20.7 H Platelet Count 219 Mean Platelet Volume 9.7 Immature Granulocytes % 1.800 H Neutrophils % 68.7 Lymphocytes % 11.8 L Monocytes % 12.2 H Eosinophils % 4.3 Basophils % 1.2 Nucleated Red Blood Cells % 0.0 Immature Granulocytes # 0.140 H Neutrophils # 5.3 Lymphocytes # 0.9 Monocytes # 0.9 Eosinophils # 0.3 Basophils # 0.1 Nucleated Red Blood Cells # 0.0 Sodium Level 141 Potassium Level 4.4 Chloride Level 115 H Carbon Dioxide Level 21 Anion Gap 5 Blood Urea Nitrogen 18 Creatinine 1.35 H Est Glomerular Filtrat Rate mL/min 54 L Glucose Level 93 Calcium Level 9.1 Magnesium Level 2.0 Total Bilirubin 0.4 Direct Bilirubin 0.00 Indirect Bilirubin 0.4 Aspartate Amino Transf (AST/SGOT) 37 Alanine Aminotransferase (ALT/SGPT) 33 Alkaline Phosphatase 111 Total Protein 6.1 Albumin 2.7 L Globulin 3.40 H Albumin/Globulin Ratio 0.79 Medications Medication Current Medications Miscellaneous Information (* Miscellaneous Pharmacy Order) DURAMORPH: 0.2 MG SPI... GIVEN NEURAXIAL XX ; Start 09/13/18 at 16:30 IV Flush (NS 3 ml) 3 ml PER PROTOCOL IV ; Start 09/13/18 at 17:00 Acetaminophen (Tylenol Supp) 650 mg Q6H PRN [place] Fever; Start 09/13/18 at 17:00 Ondansetron HCl (Zofran Inj) 4 mg Q4H PRN IV NAUSEA AND/OR VOMITING; Start 09/13/18 at 17:00 Folic Acid (Folic Acid) 1 mg DAILY PO Last administered on 09/29/18at 08:48; Admin Dose 1 MG; Start 09/14/18 at 09:00 Multivit/Ca Carb/ B Cmplx/FA/Prenat (Flor-Elisa) 1 tab DAILY PO Last administered on 09/29/18 08:48; Admin Dose 1 TAB; Start 09/14/18 at 09:00 Sodium Phosphate (Kphos Neutral) 1,000 mg BID PO Last administered on 09/29/18 21:32; Admin Dose 1,000 MG; Start 09/13/18 at 21:00 Hydromorphone HCl (Dilaudid) 1 mg Q4H PRN IV SEVERE PAIN LEVEL 7-10 Last administered on 09/29/18 09:06; Admin Dose 1 MG; Start 09/13/18 at 17:30 Tacrolimus (Prograf) 1 mg BID PO Last administered on 09/29/18 21:33; Admin Dose 1 MG; Start 09/13/18 at 22:00 Leflunomide (Arava) 20 mg DAILY PO Last administered on 09/29/18 08:48; Admin Dose 20 MG; Start 09/14/18 at 09:00 Acetaminophen (Tylenol Tab) 650 mg Q6H PRN PO MILD PAIN(1-3)OR ELEVATED TEMP Last administered on 09/17/18 20:44; Admin Dose 650 MG; Start 09/17/18 at 17:00 Enoxaparin Sodium (Lovenox) 40 mg DAILY SC Last administered on 09/29/18 08:57; Admin Dose 40 MG; Start 09/19/18 at 09:00 Diltiazem HCl (Cardizem Cd) 180 mg DAILY PO Last administered on 09/29/18 08:49; Admin Dose 180 MG; Start 09/23/18 at 09:00 Potassium Chloride (Klor-Con 10) 20 meq BID PO Last administered on 09/29/18 21:33; Admin Dose 20 MEQ; Start 09/23/18 at 09:00 Famotidine (Pepcid) 20 mg BID PO Last administered on 09/29/18 21:33; Admin Dose 20 MG; Start 09/23/18 at 21:00 Metronidazole (Flagyl) 500 mg Q8 PO Last administered on 09/30/18 06:15; Admin Dose 500 MG; Start 09/24/18 at 22:00 Levofloxacin (Levaquin) 500 mg DAILY@06 PO Last administered on 09/30/18 06:15; Admin Dose 500 MG; Start 09/25/18 at 06:00 Amiodarone HCl (Cordarone) 200 mg DAILY PO Last administered on 09/29/18at 08:49; Admin Dose 200 MG; Start 09/26/18 at 10:00 Magnesium Oxide (Mag-Ox 400) 800 mg TID PO Last administered on 09/29/18at 21:33; Admin Dose 800 MG; Start 09/27/18 at 21:00 Sodium Chloride 1,000 ml @ 75 mls/hr [id number] IV Last administered on 09/30/18at 04:10; Admin Dose 75 MLS/HR; Start 09/29/18 at 14:00 ERIN MONTOYA MD Sep 30, 2018 08:07
[2018-09-30] MEDS: TACROLIMUS 1 MG CAP PO SCH ×2 (08:45→20:10)
[2018-09-30] MEDS: MULTIVIT/CA CARB/B CMPLX/FA TAB PO SCH (08:45)
[2018-09-30] MEDS: LEFLUNOMIDE 20 MG TAB PO SCH (08:45)
[2018-09-30] MEDS: SOD PHOS MONO/DIBAS 250 MG TAB PO SCH ×2 (08:45→20:10)
[2018-09-30] MEDS: MAGNESIUM OXIDE 400 MG TAB PO SCH ×3 (08:46→20:11)
[2018-09-30] MEDS: DILTIAZEM (CD) 180 MG CAP PO SCH (08:46)
[2018-09-30] MEDS: POTASSIUM CHLORIDE (SR) 10 MEQ TAB PO SCH ×2 (08:46→20:11)
[2018-09-30] MEDS: AMIODARONE 200 MG TAB PO SCH (08:46)
[2018-09-30] MEDS: FAMOTIDINE 20 MG TAB PO SCH ×2 (08:46→20:11)
[2018-09-30] MEDS: FOLIC ACID 1 MG TAB PO SCH (08:46)
[2018-09-30] MEDS: ENOXAPARIN 40 MG/0.4 ML SYG SC SCH (09:00)
--- NOTE | 2018-09-30 09:48 | PN ---
Date/Time of Note Date/Time of Note DATE: 09/30/18 TIME: 09:47 Assessment/Plan VTE Prophylaxis Risk score (from Ns)>0 risk: 5 [place] [facility] [place] contraindicated: other Pharmacological prophylaxis: heparin Lines/Catheters IV Catheter Type (from [facility]): Saline Lock Urinary Cath still in place: No Assessment/Plan Assessment/Plan 1. Severe left peripheral artery disease with infected left TMA stump- stable - Vascular consultation appreciated. s/p Urgent left below-knee amputation on 09/13/2018 with washout. Plans for further surgical intervention - Antibiotics as per ID 2. SVT secondary to A. fib with RVR - patient with sinus tachycardia up to 111 this am. When HR better controlled with downgrade to Med/Surg - Cardiology on board and appreciate recommendations. Continue on amiodarone until 10/20, 1 month tx. continue on diltiazem - Once cleared by Surgeon, will start NOAC for afib. Will have revision of stump next week so hold off for now 3. Sepsis with leukocytosis, febrile illness, and lactic acidosis secondary to lower extremity infection- resolving - remains afebrile and nl WBC - wound culture results noted - ID on board for antibiotic recommendations 4. Peripheral vascular disease. - Continue statins 5. History of renal transplant. - nephrology on board and appreciate recommendations. Cr still elevated and continuing on IVF - avoiding nephrotoxic agents - continue immunosuppressants 6. Normocytic anemia - stable - no need for transfusions at this time 7. HLD - on statin 8. Disposition - Continue with IVF for treatment of mild TWIN. Pending further vascular surgery intervention - patient will ultimately be discharged home given insurance and unable to d/c to [facility] Result Diagram: 09/30/18 0530 09/30/18 0545 Results 24hrs Laboratory Tests Test 09/30/18 05:30 09/30/18 05:45 09/30/18 09:02 White Blood Count 7.7 Red Blood Count 3.70 L Hemoglobin 10.0 L Hematocrit 32.9 L Mean Corpuscular Volume 88.9 Mean Corpuscular Hemoglobin 27.0 L Mean Corpuscular 30.4 L Hemoglobin Concent Red Cell Distribution Width 20.7 H Platelet Count 219 Mean Platelet Volume 9.7 Immature Granulocytes % 1.800 H Neutrophils % 68.7 Lymphocytes % 11.8 L Monocytes % 12.2 H Eosinophils % 4.3 Basophils % 1.2 Nucleated Red Blood Cells % 0.0 Immature Granulocytes # 0.140 H Neutrophils # 5.3 Lymphocytes # 0.9 Monocytes # 0.9 Eosinophils # 0.3 Basophils # 0.1 Nucleated Red Blood Cells # 0.0 Sodium Level 141 Potassium Level 4.4 Chloride Level 115 H Carbon Dioxide Level 21 Anion Gap 5 Blood Urea Nitrogen 18 Creatinine 1.35 H Est Glomerular Filtrat 54 L Rate mL/min Glucose Level 93 Calcium Level 9.1 Magnesium Level 2.0 Total Bilirubin 0.4 Direct Bilirubin 0.00 Indirect Bilirubin 0.4 Aspartate Amino Transf (AST/SGOT) 37 Alanine 33 Aminotransferase (ALT/SGPT) Alkaline Phosphatase 111 Total Protein 6.1 Albumin 2.7 L Globulin 3.40 H Albumin/Globulin Ratio 0.79 Lab Scanned Report REFERENCE LAB Subjective 24 Hr Interval Summary Free Text/Dictation Patient doing well and denies any acute issues. tolerating PO intake and pain controlled. Exam/Review of Systems Exam Vitals Vital Signs Date Temp Pulse Resp B/P (MAP) Pulse Ox O2 O2 Flow FiO2 Time Delivery Rate 09/30/18 111 08:01 09/30/18 98.7 18 114/77 98 07:18 (89) 09/29/18 Room Air 15:21 Intake and Output 09/29/18 09/29/18 09/30/18 1515:00 23:00 07:00 IntakeIntake Total 720 ml 480 ml OutputOutput Total 500 ml 1000 ml BalanceBalance 220 ml -520 ml Exam General: no acute distress. answering questions appropriately CVS: S1, S2, regular rate and rhythm. no murmurs Lungs: clear to auscultation bilaterally. no wheezing or rhonchi Abd: soft, nontender, nondistended. no rebound or guarding. bowel sounds present diffusely Ext: L BKA. no cyanosis, clubbing, or edema Skin: warm, dry. LLE dressing intact with wound vac in place Results Results 24hrs Laboratory Tests Test 09/30/18 05:30 09/30/18 05:45 09/30/18 09:02 White Blood Count 7.7 Red Blood Count 3.70 L Hemoglobin 10.0 L Hematocrit 32.9 L Mean Corpuscular Volume 88.9 Mean Corpuscular Hemoglobin 27.0 L Mean Corpuscular 30.4 L Hemoglobin Concent Red Cell Distribution Width 20.7 H Platelet Count 219 Mean Platelet Volume 9.7 Immature Granulocytes % 1.800 H Neutrophils % 68.7 Lymphocytes % 11.8 L Monocytes % 12.2 H Eosinophils % 4.3 Basophils % 1.2 Nucleated Red Blood Cells % 0.0 Immature Granulocytes # 0.140 H Neutrophils # 5.3 Lymphocytes # 0.9 Monocytes # 0.9 Eosinophils # 0.3 Basophils # 0.1 Nucleated Red Blood Cells # 0.0 Sodium Level 141 Potassium Level 4.4 Chloride Level 115 H Carbon Dioxide Level 21 Anion Gap 5 Blood Urea Nitrogen 18 Creatinine 1.35 H Est Glomerular Filtrat 54 L Rate mL/min Glucose Level 93 Calcium Level 9.1 Magnesium Level 2.0 Total Bilirubin 0.4 Direct Bilirubin 0.00 Indirect Bilirubin 0.4 Aspartate Amino Transf (AST/SGOT) 37 Alanine 33 Aminotransferase (ALT/SGPT) Alkaline Phosphatase 111 Total Protein 6.1 Albumin 2.7 L Globulin 3.40 H Albumin/Globulin Ratio 0.79 Lab Scanned Report REFERENCE LAB Medications Medication Current Medications Miscellaneous Information (* Miscellaneous Pharmacy Order) DURAMORPH: 0.2 MG SPI... GIVEN NEURAXIAL XX ; Start 09/13/18 at 16:30 IV Flush (NS 3 ml) 3 ml PER PROTOCOL IV ; Start 09/13/18 at 17:00 Acetaminophen (Tylenol Supp) 650 mg Q6H PRN [place] Fever; Start 09/13/18 at 17:00 Ondansetron HCl (Zofran Inj) 4 mg Q4H PRN IV NAUSEA AND/OR VOMITING; Start 09/13/18 at 17:00 Folic Acid (Folic Acid) 1 mg DAILY PO Last administered on 09/30/18at 08:46; Admin Dose 1 MG; Start 09/14/18 at 09:00 Multivit/Ca Carb/ B Cmplx/FA/Prenat (Flor-Elisa) 1 tab DAILY PO Last administered on 09/30/18at 08:45; Admin Dose 1 TAB; Start 09/14/18 at 09:00 Sodium Phosphate (Kphos Neutral) 1,000 mg BID PO Last administered on 09/30/18at 08:45; Admin Dose 1,000 MG; Start 09/13/18 at 21:00 Hydromorphone HCl (Dilaudid) 1 mg Q4H PRN IV SEVERE PAIN LEVEL 7-10 Last administered on 09/29/18 09:06; Admin Dose 1 MG; Start 09/13/18 at 17:30 Tacrolimus (Prograf) 1 mg BID PO Last administered on 09/30/18 08:45; Admin Dose 1 MG; Start 09/13/18 at 22:00 Leflunomide (Arava) 20 mg DAILY PO Last administered on 09/30/18 08:45; Admin Dose 20 MG; Start 09/14/18 at 09:00 Acetaminophen (Tylenol Tab) 650 mg Q6H PRN PO MILD PAIN(1-3)OR ELEVATED TEMP Last administered on 09/17/18 20:44; Admin Dose 650 MG; Start 09/17/18 at 17:00 Enoxaparin Sodium (Lovenox) 40 mg DAILY SC Last administered on 09/30/18 09:00; Admin Dose 40 MG; Start 09/19/18 at 09:00 Diltiazem HCl (Cardizem Cd) 180 mg DAILY PO Last administered on 09/30/18 08:46; Admin Dose 180 MG; Start 09/23/18 at 09:00 Potassium Chloride (Klor-Con 10) 20 meq BID PO Last administered on 09/30/18 08:46; Admin Dose 20 MEQ; Start 09/23/18 at 09:00 Famotidine (Pepcid) 20 mg BID PO Last administered on 09/30/18 08:46; Admin Dose 20 MG; Start 09/23/18 at 21:00 Metronidazole (Flagyl) 500 mg Q8 PO Last administered on 09/30/18 06:15; Admin Dose 500 MG; Start 09/24/18 at 22:00 Levofloxacin (Levaquin) 500 mg DAILY@06 PO Last administered on 09/30/18 06:15; Admin Dose 500 MG; Start 09/25/18 at 06:00 Amiodarone HCl (Cordarone) 200 mg DAILY PO Last administered on 09/30/18 08:46; Admin Dose 200 MG; Start 09/26/18 at 10:00 Magnesium Oxide (Mag-Ox 400) 800 mg TID PO Last administered on 09/30/18 08:46; Admin Dose 800 MG; Start 09/27/18 at 21:00 Sodium Chloride 1,000 ml @ 75 mls/hr [id number] IV Last administered on 09/30/18at 04:10; Admin Dose 75 MLS/HR; Start 09/29/18 at 14:00 ZAN BURKETT MD Sep 30, 2018 09:47
[2018-09-30] MEDS: HYDROmorphONE 1 MG/ML SYG IV PRN (10:43)
--- NOTE | 2018-09-30 11:41 | CONS ---
Assessment/Plan Assessment/Plan Hospital Course (Demo Recall) New onset paroxysmal atrial fibrillation with RVR: EF preserved. CHADSVASC 2 for HTN and PAD so should be anticoagulated if ok with surgery. 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 For now plan for repeat surgery Consultation Date/Type/Reason Admit Date/Time September 13, 2018 at 11:48 Initial Consult Date 09/20/18 Type of Consult Cardiology Date/Time of Note DATE: 09/30/18 TIME: 11:40 24 HR Interval Summary Free Text/Dictation No events. Has sinus tachycardia at baseline which increases to 150s with activity when working with PT Exam/Review of Systems Vital Signs Vitals Vital Signs Date Temp Pulse Resp B/P (MAP) Pulse Ox O2 O2 Flow FiO2 Time Delivery Rate 09/30/18 111 08:01 09/30/18 98.7 18 114/77 98 07:18 (89) 09/29/18 Room Air 15:21 Intake and Output 09/29/18 09/29/18 09/30/18 1515:00 23:00 07:00 IntakeIntake Total 720 ml 480 ml OutputOutput Total 500 ml 1000 ml BalanceBalance 220 ml -520 ml Exam Constitutional: alert, oriented Head: normocephalic, atraumatic Neck: No jvd Respiratory: diminished breath sounds; No clear to auscultation Cardiovascular: No regular rate and rhythm (tachycardic low 100s at rest), No edema Gastrointestinal: soft, non-tender; No distended 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: nl mental status, nl speech Labs Result Diagram: 09/30/18 0530 09/30/18 0545 Results 24hrs Laboratory Tests Test 09/30/18 05:30 09/30/18 05:45 09/30/18 09:02 White Blood Count 7.7 Red Blood Count 3.70 L Hemoglobin 10.0 L Hematocrit 32.9 L Mean Corpuscular Volume 88.9 Mean Corpuscular Hemoglobin 27.0 L Mean Corpuscular 30.4 L Hemoglobin Concent Red Cell Distribution Width 20.7 H Platelet Count 219 Mean Platelet Volume 9.7 Immature Granulocytes % 1.800 H Neutrophils % 68.7 Lymphocytes % 11.8 L Monocytes % 12.2 H Eosinophils % 4.3 Basophils % 1.2 Nucleated Red Blood Cells % 0.0 Immature Granulocytes # 0.140 H Neutrophils # 5.3 Lymphocytes # 0.9 Monocytes # 0.9 Eosinophils # 0.3 Basophils # 0.1 Nucleated Red Blood Cells # 0.0 Sodium Level 141 Potassium Level 4.4 Chloride Level 115 H Carbon Dioxide Level 21 Anion Gap 5 Blood Urea Nitrogen 18 Creatinine 1.35 H Est Glomerular Filtrat 54 L Rate mL/min Glucose Level 93 Calcium Level 9.1 Magnesium Level 2.0 Total Bilirubin 0.4 Direct Bilirubin 0.00 Indirect Bilirubin 0.4 Aspartate Amino Transf (AST/SGOT) 37 Alanine 33 Aminotransferase (ALT/SGPT) Alkaline Phosphatase 111 Total Protein 6.1 Albumin 2.7 L Globulin 3.40 H Albumin/Globulin Ratio 0.79 Lab Scanned Report REFERENCE LAB Medications Medications Current Medications Miscellaneous Information (* Miscellaneous Pharmacy Order) DURAMORPH: 0.2 MG SPI... GIVEN NEURAXIAL XX ; Start 09/13/18 at 16:30 IV Flush (NS 3 ml) 3 ml PER PROTOCOL IV ; Start 09/13/18 at 17:00 Acetaminophen (Tylenol Supp) 650 mg Q6H PRN [place] Fever; Start 09/13/18 at 17:00 Ondansetron HCl (Zofran Inj) 4 mg Q4H PRN IV NAUSEA AND/OR VOMITING; Start 09/13/18 at 17:00 Folic Acid (Folic Acid) 1 mg DAILY PO Last administered on 09/30/18at 08:46; Admin Dose 1 MG; Start 09/14/18 at 09:00 Multivit/Ca Carb/ B Cmplx/FA/Prenat (Flor-Elisa) 1 tab DAILY PO Last administered on 09/30/18at 08:45; Admin Dose 1 TAB; Start 09/14/18 at 09:00 Sodium Phosphate (Kphos Neutral) 1,000 mg BID PO Last administered on 09/30/18at 08:45; Admin Dose 1,000 MG; Start 09/13/18 at 21:00 Hydromorphone HCl (Dilaudid) 1 mg Q4H PRN IV SEVERE PAIN LEVEL 7-10 Last administered on 09/30/18at 10:43; Admin Dose 1 MG; Start 09/13/18 at 17:30 Tacrolimus (Prograf) 1 mg BID PO Last administered on 09/30/18 08:45; Admin Dose 1 MG; Start 09/13/18 at 22:00 Leflunomide (Arava) 20 mg DAILY PO Last administered on 09/30/18 08:45; Admin Dose 20 MG; Start 09/14/18 at 09:00 Acetaminophen (Tylenol Tab) 650 mg Q6H PRN PO MILD PAIN(1-3)OR ELEVATED TEMP Last administered on 09/17/18 20:44; Admin Dose 650 MG; Start 09/17/18 at 17:00 Enoxaparin Sodium (Lovenox) 40 mg DAILY SC Last administered on 09/30/18 09:00; Admin Dose 40 MG; Start 09/19/18 at 09:00 Diltiazem HCl (Cardizem Cd) 180 mg DAILY PO Last administered on 09/30/18 08 :46; Admin Dose 180 MG; Start 09/23/18 at 09:00 Potassium Chloride (Klor-Con 10) 20 meq BID PO Last administered on 09/30/18 08:46; Admin Dose 20 MEQ; Start 09/23/18 at 09:00 Famotidine (Pepcid) 20 mg BID PO Last administered on 09/30/18 08:46; Admin Dose 20 MG; Start 09/23/18 at 21:00 Metronidazole (Flagyl) 500 mg Q8 PO Last administered on 09/30/18 06:15; Admin Dose 500 MG; Start 09/24/18 at 22:00 Levofloxacin (Levaquin) 500 mg DAILY@06 PO Last administered on 09/30/18 06:15; Admin Dose 500 MG; Start 09/25/18 at 06:00 Amiodarone HCl (Cordarone) 200 mg DAILY PO Last administered on 09/30/18 08:46; Admin Dose 200 MG; Start 09/26/18 at 10:00 Magnesium Oxide (Mag-Ox 400) 800 mg TID PO Last administered on 09/30/18 08:46; Admin Dose 800 MG; Start 09/27/18 at 21:00 Sodium Chloride 1,000 ml @ 75 mls/hr [id number] IV Last administered on 6/17/19at 04:10; Admin Dose 75 MLS/HR; Start 09/29/18 at 14:00 YOLI HOROWITZ Sep 30, 2018 11:41
--- NOTE | 2018-09-30 18:11 | CONS ---
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 CoNS is a likely colonizer; Fungal culture 09/19/18 grew mold, submitted reference lab for identification. - h/o draining wound, necrosis and infection of L TMA site. ESR 121 on 09/12/2018. 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 All the infected tissue was removed by L NUBIAA according to Dr. Cortes progress note - h/o gangrene and infection of L foot - A fib with RVR- converted to SR - hypertension - h/o renal transplant at [facility] in 2006, maintained on tacrolimus - immunocompromised status - expected post-op anemia - transaminitis - improving - hypomagnesemia - repleted - adverse reaction to cefazolin (hives), meropenem (pruritus) recommendations: - will review the result of fungal culture from 09/19/18 (mold submitted to [facility]), possible colonization - Continue levofloxacin (09/17/2018-) and metronidazole (09/17/2018-) for stump infection tomorrow to complete 2 weeks total; s/p aztreonam (09/13/2018- 09/24/2018) - Dr. Cortes planning debridement and possible closure next week; if AKA then likely will not need more antibiotics afterwards management d/w Pt Consultation Date/Type/Reason Admit Date/Time September 13, 2018 at 11:48 Initial Consult Date 09/13/18 Type of Consult ID Requesting Provider: DOMINIQUE BURGESS NP Date/Time of Note DATE: 09/30/18 TIME: 18:11 24 HR Interval Summary Constitutional: no complaints, improved Detailed Summary Eyes: no complaints ENT: no complaints Respiratory: no complaints Cardiovascular: no complaints Gastrointestinal: no complaints, passing stool (bid) Genitourinary: no complaints Musculoskeletal: bone/joint pain (pain of the wound at the time of VAC change) Skin: no complaints Neurologic: no complaints Exam/Review of Systems Exam Vitals Vital Signs Date Temp Pulse Resp B/P (MAP) Pulse Ox O2 O2 Flow FiO2 Time Delivery Rate 09/30/18 95 16:01 09/30/18 98.7 18 106/65 94 Room Air 15:13 (79) Intake and Output 09/29/18 09/29/18 09/30/18 1515:00 23:00 07:00 IntakeIntake Total 720 ml 480 ml OutputOutput Total 500 ml 1000 ml BalanceBalance 220 ml -520 ml Constitutional: alert, oriented, well developed Psych: no complaints, nl mood/affect Head: normocephalic, atraumatic Eyes: nl conjunctiva, EOMI, nl lids, nl sclera ENMT: nl external ears & nose, nl nasal mucosa & septum, mucosa pink and moist Neck: supple, non-tender Respiratory: clear to auscultation, normal air movement Cardiovascular: regular rate and rhythm, nl pulses, other (s/p AVF on RUE) Gastrointestinal: soft, non-tender; No distended Musculoskeletal: other (s/p L BKA) Extremities: No edema 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: 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, nl mental status, nl speech, nl strength, other (senstion of b/l LE is intact b/l) Skin: nl turgor Results Result Diagram: 09/30/18 0530 09/30/18 0545 Results 24hrs Laboratory Tests Test 09/30/18 05:30 09/30/18 05:45 09/30/18 09:02 White Blood Count 7.7 Red Blood Count 3.70 L Hemoglobin 10.0 L Hematocrit 32.9 L Mean Corpuscular Volume 88.9 Mean Corpuscular Hemoglobin 27.0 L Mean Corpuscular 30.4 L Hemoglobin Concent Red Cell Distribution Width 20.7 H Platelet Count 219 Mean Platelet Volume 9.7 Immature Granulocytes % 1.800 H Neutrophils % 68.7 Lymphocytes % 11.8 L Monocytes % 12.2 H Eosinophils % 4.3 Basophils % 1.2 Nucleated Red Blood Cells % 0.0 Immature Granulocytes # 0.140 H Neutrophils # 5.3 Lymphocytes # 0.9 Monocytes # 0.9 Eosinophils # 0.3 Basophils # 0.1 Nucleated Red Blood Cells # 0.0 Sodium Level 141 Potassium Level 4.4 Chloride Level 115 H Carbon Dioxide Level 21 Anion Gap 5 Blood Urea Nitrogen 18 Creatinine 1.35 H Est Glomerular Filtrat 54 L Rate mL/min Glucose Level 93 Calcium Level 9.1 Magnesium Level 2.0 Total Bilirubin 0.4 Direct Bilirubin 0.00 Indirect Bilirubin 0.4 Aspartate Amino Transf (AST/SGOT) 37 Alanine 33 Aminotransferase (ALT/SGPT) Alkaline Phosphatase 111 Total Protein 6.1 Albumin 2.7 L Globulin 3.40 H Albumin/Globulin Ratio 0.79 Lab Scanned Report REFERENCE LAB Medications Medication Current Medications Miscellaneous Information (* Miscellaneous Pharmacy Order) DURAMORPH: 0.2 MG SPI... GIVEN NEURAXIAL XX ; Start 09/13/18 at 16:30 IV Flush (NS 3 ml) 3 ml PER PROTOCOL IV ; Start 09/13/18 at 17:00 Acetaminophen (Tylenol Supp) 650 mg Q6H PRN [place] Fever; Start 09/13/18 at 17:00 Ondansetron HCl (Zofran Inj) 4 mg Q4H PRN IV NAUSEA AND/OR VOMITING; Start 09/13/18 at 17:00 Folic Acid (Folic Acid) 1 mg DAILY PO Last administered on 09/30/18at 08:46; Admin Dose 1 MG; Start 09/14/18 at 09:00 Multivit/Ca Carb/ B Cmplx/FA/Prenat (Flor-Elisa) 1 tab DAILY PO Last administered on 09/30/18at 08:45; Admin Dose 1 TAB; Start 09/14/18 at 09:00 Sodium Phosphate (Kphos Neutral) 1,000 mg BID PO Last administered on 09/30/18at 08:45; Admin Dose 1,000 MG; Start 09/13/18 at 21:00 Hydromorphone HCl (Dilaudid) 1 mg Q4H PRN IV SEVERE PAIN LEVEL 7-10 Last administered on 09/30/18at 10:43; Admin Dose 1 MG; Start 09/13/18 at 17:30 Tacrolimus (Prograf) 1 mg BID PO Last administered on 09/30/18at 08:45; Admin Dose 1 MG; Start 09/13/18 at 22:00 Leflunomide (Arava) 20 mg DAILY PO Last administered on 09/30/18at 08:45; Admin Dose 20 MG; Start 09/14/18 at 09:00 Acetaminophen (Tylenol Tab) 650 mg Q6H PRN PO MILD PAIN(1-3)OR ELEVATED TEMP Last administered on 09/17/18 20:44; Admin Dose 650 MG; Start 09/17/18 at 17:00 Enoxaparin Sodium (Lovenox) 40 mg DAILY SC Last administered on 09/30/18 09:00; Admin Dose 40 MG; Start 09/19/18 at 09:00 Diltiazem HCl (Cardizem Cd) 180 mg DAILY PO Last administered on 09/30/18 08:46; Admin Dose 180 MG; Start 09/23/18 at 09:00 Potassium Chloride (Klor-Con 10) 20 meq BID PO Last administered on 09/30/18 08:46; Admin Dose 20 MEQ; Start 09/23/18 at 09:00 Famotidine (Pepcid) 20 mg BID PO Last administered on 09/30/18 08:46; Admin Dose 20 MG; Start 09/23/18 at 21:00 Metronidazole (Flagyl) 500 mg Q8 PO Last administered on 09/30/18 15:23; Admin Dose 500 MG; Start 09/24/18 at 22:00 Levofloxacin (Levaquin) 500 mg DAILY@06 PO Last administered on 09/30/18 06:15; Admin Dose 500 MG; Start 09/25/18 at 06:00 Amiodarone HCl (Cordarone) 200 mg DAILY PO Last administered on 09/30/18 08:46; Admin Dose 200 MG; Start 09/26/18 at 10:00 Magnesium Oxide (Mag-Ox 400) 800 mg TID PO Last administered on 09/30/18 15:23; Admin Dose 800 MG; Start 09/27/18 at 21:00 Sodium Chloride 1,000 ml @ 75 mls/hr [id number] IV Last administered on 09/30/18 17:43; Admin Dose 75 MLS/HR; Start 09/29/18 at 14:00 CLARE IRBY M.D. Sep 30, 2018 18:11
[2018-10-01] VITALS (12 sets, daily range): BP systolic 98–134; BP diastolic 65–85; PULSE 91–116; RESP 18–19
[2018-10-01] MEDS: LEVOFLOXACIN 500 MG TAB PO SCH (05:35)
[2018-10-01] MEDS: metroNIDAZOLE 500 MG TAB PO SCH ×3 (05:35→21:46)
[2018-10-01] MEDS: SOD CHLORIDE 0.9% 1,000 ML IV SCH ×2 (05:36→18:23)
--- NOTE | 2018-10-01 08:07 | CONS ---
Assessment/Plan Assessment/Plan Hospital Course (Demo Recall) 1. Kidney transplant status. The patient had a cadaveric kidney transplant in 2006. He is on immunosuppressive therapy. His renal function is improved and his serum creatinine today is 1.23 mg which is lower than yesterday. He is getting some IV fluids to maintain volume status. 2. He is now 18 days postop a left below the knee amputation. His left foot was infected and gangrenous. He now has a L stump that is draining dark bloody purulent material . He underwent a second surgery last week. The left stump wound was opened, drained, debrided and washed out. He now has a drain leading to a wound VAC on the left knee stump. 3. Hypertension 4. Peripheral artery disease 5. Anemia , is improving 6. Hyperlipidemia. 7. Hypomagnesemia, I suspect he is loosing magnesium through kidney . I have started him on an oral magnesium supplement and I have had to increase the dose because of continued low serum magnesium level. 8. Hypokalemia. Potassium is back to normal. I have increased his potassium supplements. I will order labs for tomorrow. Consultation Date/Type/Reason Admit Date/Time September 13, 2018 at 11:48 Initial Consult Date 09/13/18 Type of Consult Nephrology Requesting Provider: DOMINIQUE BURGESS NP Date/Time of Note DATE: 10/01/18 TIME: 08:03 24 HR Interval Summary Free Text/Dictation This patient is being seen in nephrologic follow-up. He is awake and alert. He has a kidney transplant. He has a magnesium wasting nephropathy. His magnesium continues to be low. Constitutional: no complaints, improved Exam/Review of Systems Exam Vitals Vital Signs Date Temp Pulse Resp B/P (MAP) Pulse Ox O2 O2 Flow FiO2 Time Delivery Rate 10/01/18 98.1 97 18 133/82 96 Room Air 07:30 (99) Intake and Output 09/30/18 09/30/18 10/01/18 1515:00 23:00 07:00 IntakeIntake Total 1000 ml 1150 ml OutputOutput Total 1200 ml 1060 ml BalanceBalance -200 ml 90 ml Exam Left leg is status post a below the knee amputation. He now has a bandage with a drain going to a wound VAC. Constitutional: alert, oriented, frail Respiratory: clear to auscultation, normal air movement Cardiovascular: regular rate and rhythm Results Result Diagram: 10/01/18 0549 10/01/18 0549 Results 24hrs Laboratory Tests Test 09/30/18 09:02 10/01/18 05:49 Lab Scanned Report REFERENCE LAB White Blood Count 9.3 # Red Blood Count 3.46 L Hemoglobin 9.5 L Hematocrit 31.4 L Mean Corpuscular Volume 90.8 Mean Corpuscular Hemoglobin 27.5 L Mean Corpuscular Hemoglobin Concent 30.3 L Red Cell Distribution Width 21.1 H Platelet Count 242 Mean Platelet Volume 10.4 Immature Granulocytes % 1.400 H Neutrophils % 75.3 Lymphocytes % 8.7 L Monocytes % 11.0 Eosinophils % 2.7 Basophils % 0.9 Nucleated Red Blood Cells % 0.0 Immature Granulocytes # 0.130 H Neutrophils # 7.0 Lymphocytes # 0.8 Monocytes # 1.0 H Eosinophils # 0.3 Basophils # 0.1 Nucleated Red Blood Cells # 0.0 Sodium Level 138 Potassium Level 4.7 Chloride Level 112 H Carbon Dioxide Level 22 Anion Gap 4 L Blood Urea Nitrogen 13 Creatinine 1.23 Est Glomerular Filtrat Rate mL/min > 60 Glucose Level 90 Calcium Level 9.1 Phosphorus Level 3.2 Magnesium Level 1.5 L Total Bilirubin 0.5 Direct Bilirubin 0.00 Indirect Bilirubin 0.5 Aspartate Amino Transf (AST/SGOT) 39 Alanine Aminotransferase (ALT/SGPT) 32 Alkaline Phosphatase 105 Total Protein 5.2 L Albumin 2.4 L Globulin 2.80 Albumin/Globulin Ratio 0.85 Medications Medication Current Medications Miscellaneous Information (* Miscellaneous Pharmacy Order) DURAMORPH: 0.2 MG SPI... GIVEN NEURAXIAL XX ; Start 09/13/18 at 16:30 IV Flush (NS 3 ml) 3 ml PER PROTOCOL IV ; Start 09/13/18 at 17:00 Acetaminophen (Tylenol Supp) 650 mg Q6H PRN [place] Fever; Start 09/13/18 at 17:00 Ondansetron HCl (Zofran Inj) 4 mg Q4H PRN IV NAUSEA AND/OR VOMITING; Start 09/13/18 at 17:00 Folic Acid (Folic Acid) 1 mg DAILY PO Last administered on 09/30/18at 08:46; Admin Dose 1 MG; Start 09/14/18 at 09:00 Multivit/Ca Carb/ B Cmplx/FA/Prenat (Flor-Elisa) 1 tab DAILY PO Last administered on 09/30/18 08:45; Admin Dose 1 TAB; Start 09/14/18 at 09:00 Sodium Phosphate (Kphos Neutral) 1,000 mg BID PO Last administered on 09/30/18 20:10; Admin Dose 1,000 MG; Start 09/13/18 at 21:00 Hydromorphone HCl (Dilaudid) 1 mg Q4H PRN IV SEVERE PAIN LEVEL 7-10 Last administered on 09/30/18 10:43; Admin Dose 1 MG; Start 09/13/18 at 17:30 Tacrolimus (Prograf) 1 mg BID PO Last administered on 09/30/18 20:10; Admin Dose 1 MG; Start 09/13/18 at 22:00 Leflunomide (Arava) 20 mg DAILY PO Last administered on 09/30/18 08:45; Admin Dose 20 MG; Start 09/14/18 at 09:00 Acetaminophen (Tylenol Tab) 650 mg Q6H PRN PO MILD PAIN(1-3)OR ELEVATED TEMP Last administered on 09/17/18 20:44; Admin Dose 650 MG; Start 09/17/18 at 17:00 Enoxaparin Sodium (Lovenox) 40 mg DAILY SC Last administered on 09/30/18 09:00; Admin Dose 40 MG; Start 09/19/18 at 09:00 Diltiazem HCl (Cardizem Cd) 180 mg DAILY PO Last administered on 09/30/18 08:46; Admin Dose 180 MG; Start 09/23/18 at 09:00 Potassium Chloride (Klor-Con 10) 20 meq BID PO Last administered on 09/30/18 20:11; Admin Dose 20 MEQ; Start 09/23/18 at 09:00 Famotidine (Pepcid) 20 mg BID PO Last administered on 09/30/18 20:11; Admin Dose 20 MG; Start 09/23/18 at 21:00 Metronidazole (Flagyl) 500 mg Q8 PO Last administered on 10/01/18 05:35; Admin Dose 500 MG; Start 09/24/18 at 22:00 Levofloxacin (Levaquin) 500 mg DAILY@06 PO Last administered on 6/18/19at 05:35; Admin Dose 500 MG; Start 09/25/18 at 06:00 Amiodarone HCl (Cordarone) 200 mg DAILY PO Last administered on 09/30/18at 08:46; Admin Dose 200 MG; Start 09/26/18 at 10:00 Magnesium Oxide (Mag-Ox 400) 800 mg TID PO Last administered on 09/30/18at 20:11; Admin Dose 800 MG; Start 09/27/18 at 21:00 Sodium Chloride 1,000 ml @ 75 mls/hr [id number] IV Last administered on 10/01/18at 05:36; Admin Dose 75 MLS/HR; Start 09/29/18 at 14:00 ERIN MONTOYA MD Oct 01, 2018 08:07
[2018-10-01] MEDS: MULTIVIT/CA CARB/B CMPLX/FA TAB PO SCH (09:38)
[2018-10-01] MEDS: DILTIAZEM (CD) 180 MG CAP PO SCH (09:38)
[2018-10-01] MEDS: FOLIC ACID 1 MG TAB PO SCH (09:38)
[2018-10-01] MEDS: TACROLIMUS 1 MG CAP PO SCH ×2 (09:38→21:47)
[2018-10-01] MEDS: SOD PHOS MONO/DIBAS 250 MG TAB PO SCH ×2 (09:38→21:51)
[2018-10-01] MEDS: MAGNESIUM OXIDE 400 MG TAB PO SCH ×3 (09:38→21:47)
[2018-10-01] MEDS: FAMOTIDINE 20 MG TAB PO SCH ×2 (09:38→21:47)
[2018-10-01] MEDS: AMIODARONE 200 MG TAB PO SCH (09:38)
[2018-10-01] MEDS: LEFLUNOMIDE 20 MG TAB PO SCH (09:39)
[2018-10-01] MEDS: POTASSIUM CHLORIDE (SR) 10 MEQ TAB PO SCH ×2 (09:39→21:47)
[2018-10-01] MEDS: ENOXAPARIN 40 MG/0.4 ML SYG SC SCH (09:41)
--- NOTE | 2018-10-01 11:35 | PN ---
Date/Time of Note Date/Time of Note DATE: 10/01/18 TIME: 11:27 Assessment/Plan VTE Prophylaxis Risk score (from Ns)>0 risk: 5 SCD applied (from Ns): No SCD contraindicated: low risk/ambulating Pharmacological prophylaxis: LMWH Pharm contraindication: surgical contra Lines/Catheters [facility] Peripheral IV Urinary Cath still in place: No Assessment/Plan Assessment/Plan 1. Severe left peripheral artery disease with infected left TMA stump- stable - Vascular consultation appreciated. s/p Urgent left below-knee amputation on 09/13/2018 with washout. Plans for further surgical intervention tomorrow - Will hold Lovenox dose after today - Antibiotics as per ID 2. SVT secondary to A. fib with RVR - Noted with some episodes of HR in the 150s on telemonitor - Cardiology on board and appreciate recommendations. Continue on amiodarone until 10/20, 1 month tx. continue on diltiazem - Once cleared by Surgeon, will start NOAC for afib. Will have revision of stump next week so hold off for now 3. Sepsis with leukocytosis, febrile illness, and lactic acidosis secondary to lower extremity infection- resolving - remains afebrile and nl WBC - wound culture results noted - ID on board for antibiotic recommendations 4. Peripheral vascular disease. - Continue statins 5. History of renal transplant. - nephrology on board and appreciate recommendations. Cr improving - avoiding nephrotoxic agents - continue immunosuppressants 6. Normocytic anemia - stable - no need for transfusions at this time 7. HLD - on statin 8. HypoMg - replacing 9. Disposition - Plans for surgical intervention tomorrow. Will hold LMWH Result Diagram: 10/01/18 0549 10/01/18 0549 Results 24hrs Laboratory Tests Test 10/01/18 05:49 White Blood Count 9.3 # Red Blood Count 3.46 L Hemoglobin 9.5 L Hematocrit 31.4 L Mean Corpuscular Volume 90.8 Mean Corpuscular Hemoglobin 27.5 L Mean Corpuscular Hemoglobin Concent 30.3 L Red Cell Distribution Width 21.1 H Platelet Count 242 Mean Platelet Volume 10.4 Immature Granulocytes % 1.400 H Neutrophils % 75.3 Lymphocytes % 8.7 L Monocytes % 11.0 Eosinophils % 2.7 Basophils % 0.9 Nucleated Red Blood Cells % 0.0 Immature Granulocytes # 0.130 H Neutrophils # 7.0 Lymphocytes # 0.8 Monocytes # 1.0 H Eosinophils # 0.3 Basophils # 0.1 Nucleated Red Blood Cells # 0.0 Sodium Level 138 Potassium Level 4.7 Chloride Level 112 H Carbon Dioxide Level 22 Anion Gap 4 L Blood Urea Nitrogen 13 Creatinine 1.23 Est Glomerular Filtrat Rate mL/min > 60 Glucose Level 90 Calcium Level 9.1 Phosphorus Level 3.2 Magnesium Level 1.5 L Total Bilirubin 0.5 Direct Bilirubin 0.00 Indirect Bilirubin 0.5 Aspartate Amino Transf (AST/SGOT) 39 Alanine Aminotransferase (ALT/SGPT) 32 Alkaline Phosphatase 105 Total Protein 5.2 L Albumin 2.4 L Globulin 2.80 Albumin/Globulin Ratio 0.85 Subjective 24 Hr Interval Summary Free Text/Dictation Patient doing well and denies any acute issues. Still with episode of tachycardia. No acute overnight events. Exam/Review of Systems Exam Vitals Vital Signs Date Temp Pulse Resp B/P (MAP) Pulse Ox O2 O2 Flow FiO2 Time Delivery Rate 10/01/18 98.2 101 18 134/85 100 Room Air 11:14 (101) Intake and Output 09/30/18 09/30/18 10/01/18 1515:00 23:00 07:00 IntakeIntake Total 1000 ml 1150 ml OutputOutput Total 1200 ml 1060 ml BalanceBalance -200 ml 90 ml Exam General: no acute distress. answering questions appropriately CVS: S1, S2, regular rhythm, tachycardia. no murmurs Lungs: clear to auscultation bilaterally. no wheezing or rhonchi Abd: soft, nontender, nondistended. no rebound or guarding. bowel sounds present diffusely Ext: L BKA. no cyanosis, clubbing, or edema Skin: warm, dry. LLE dressing intact with wound vac in place Results Results 24hrs Laboratory Tests Test 10/01/18 05:49 White Blood Count 9.3 # Red Blood Count 3.46 L Hemoglobin 9.5 L Hematocrit 31.4 L Mean Corpuscular Volume 90.8 Mean Corpuscular Hemoglobin 27.5 L Mean Corpuscular Hemoglobin Concent 30.3 L Red Cell Distribution Width 21.1 H Platelet Count 242 Mean Platelet Volume 10.4 Immature Granulocytes % 1.400 H Neutrophils % 75.3 Lymphocytes % 8.7 L Monocytes % 11.0 Eosinophils % 2.7 Basophils % 0.9 Nucleated Red Blood Cells % 0.0 Immature Granulocytes # 0.130 H Neutrophils # 7.0 Lymphocytes # 0.8 Monocytes # 1.0 H Eosinophils # 0.3 Basophils # 0.1 Nucleated Red Blood Cells # 0.0 Sodium Level 138 Potassium Level 4.7 Chloride Level 112 H Carbon Dioxide Level 22 Anion Gap 4 L Blood Urea Nitrogen 13 Creatinine 1.23 Est Glomerular Filtrat Rate mL/min > 60 Glucose Level 90 Calcium Level 9.1 Phosphorus Level 3.2 Magnesium Level 1.5 L Total Bilirubin 0.5 Direct Bilirubin 0.00 Indirect Bilirubin 0.5 Aspartate Amino Transf (AST/SGOT) 39 Alanine Aminotransferase (ALT/SGPT) 32 Alkaline Phosphatase 105 Total Protein 5.2 L Albumin 2.4 L Globulin 2.80 Albumin/Globulin Ratio 0.85 Medications Medication Current Medications Miscellaneous Information (* Miscellaneous Pharmacy Order) DURAMORPH: 0.2 MG SPI... GIVEN NEURAXIAL XX ; Start 09/13/18 at 16:30 IV Flush (NS 3 ml) 3 ml PER PROTOCOL IV ; Start 09/13/18 at 17:00 Acetaminophen (Tylenol Supp) 650 mg Q6H PRN [place] Fever; Start 09/13/18 at 17:00 Ondansetron HCl (Zofran Inj) 4 mg Q4H PRN IV NAUSEA AND/OR VOMITING; Start 09/13/18 at 17:00 Folic Acid (Folic Acid) 1 mg DAILY PO Last administered on 10/01/18at 09:38; Admin Dose 1 MG; Start 09/14/18 at 09:00 Multivit/Ca Carb/ B Cmplx/FA/Prenat (Flor-Elisa) 1 tab DAILY PO Last administe red on 10/01/18at 09:38; Admin Dose 1 TAB; Start 09/14/18 at 09:00 Sodium Phosphate (Kphos Neutral) 1,000 mg BID PO Last administered on 10/01/18at 09:38; Admin Dose 1,000 MG; Start 09/13/18 at 21:00 Hydromorphone HCl (Dilaudid) 1 mg Q4H PRN IV SEVERE PAIN LEVEL 7-10 Last administered on 09/30/18at 10:43; Admin Dose 1 MG; Start 09/13/18 at 17:30 Tacrolimus (Prograf) 1 mg BID PO Last administered on 10/01/18 09:38; Admin Dose 1 MG; Start 09/13/18 at 22:00 Leflunomide (Arava) 20 mg DAILY PO Last administered on 10/01/18 09:39; Admin Dose 20 MG; Start 09/14/18 at 09:00 Acetaminophen (Tylenol Tab) 650 mg Q6H PRN PO MILD PAIN(1-3)OR ELEVATED TEMP Last administered on 09/17/18 20:44; Admin Dose 650 MG; Start 09/17/18 at 17:00 Enoxaparin Sodium (Lovenox) 40 mg DAILY SC Last administered on 10/01/18 09:41; Admin Dose 40 MG; Start 09/19/18 at 09:00 Diltiazem HCl (Cardizem Cd) 180 mg DAILY PO Last administered on 10/01/18 09:38; Admin Dose 180 MG; Start 09/23/18 at 09:00 Potassium Chloride (Klor-Con 10) 20 meq BID PO Last administered on 10/01/18 09:39; Admin Dose 20 MEQ; Start 09/23/18 at 09:00 Famotidine (Pepcid) 20 mg BID PO Last administered on 10/01/18 09:38; Admin Dose 20 MG; Start 09/23/18 at 21:00 Metronidazole (Flagyl) 500 mg Q8 PO Last administered on 10/01/18 05:35; Admin Dose 500 MG; Start 09/24/18 at 22:00 Levofloxacin (Levaquin) 500 mg DAILY@06 PO Last administered on 10/01/18 05:35; Admin Dose 500 MG; Start 09/25/18 at 06:00 Amiodarone HCl (Cordarone) 200 mg DAILY PO Last administered on 10/01/18 09:38; Admin Dose 200 MG; Start 09/26/18 at 10:00 Sodium Chloride 1,000 ml @ 75 mls/hr [id number] IV Last administered on 10/01/18 05:36; Admin Dose 75 MLS/HR; Start 09/29/18 at 14:00 Magnesium Oxide (Mag-Ox 400) 1,200 mg TID PO Last administered on 10/01/18 09:38; Admin Dose 1,200 MG; Start 10/01/18 at 09:00 ZAN BURKETT MD Oct 01, 2018 11:35
--- NOTE | 2018-10-01 14:32 | CONS ---
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 CoNS is a likely colonizer; Fungal culture 09/19/18 grew mold, submitted reference lab for identification; path negative for malignancy - h/o draining wound, necrosis and infection of L TMA site. ESR 121 on 09/12/2018. 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 All the infected tissue was removed by L BKA according to Dr. Cortes progress note - h/o gangrene and infection of L foot - A fib with RVR, converted to SR - hypertension - h/o renal transplant at [facility] in 2006, maintained on tacrolimus - immunocompromised status - expected post-op anemia - transaminitis - improving - hypomagnesemia - repleted - adverse reaction to cefazolin (hives), meropenem (pruritus) Pt previously took aztreonam (09/13/2018-09/24/2018) recommendations: - will review the result of fungal culture from 09/19/18 (mold submitted to [facility]) - Dr. Cortes will send more cultures from the procedure on 10/02/2018, and we will review the result - Continue levofloxacin (09/17/2018-) and metronidazole (09/17/2018-) for stump infection; if the wound is healing well, these antibiotics may be discontinued - the empiric antifungal of choice is voriconazole, but it potently interacts with tacrolimus, and its level must be adjusted. [facility] does not have an inhouse assay for tacrolimus level and so voriconazole and tacrolimus cannot be co- administered safely for this Pt at [facility]. Depending on the status of the wound at his procedure on 10/02/2018, I will determine the use of antifungal medication for this Pt and communicate with Pt and his team management d/w Pt, his sister, Jack Peters, Dr. Cortes, Dr. Nation and [place] at micro lab the total time I took to care for this Pt today was from 1445 to 1400, and from 1615 to 1730 Consultation Date/Type/Reason Admit Date/Time September 13, 2018 at 11:48 Initial Consult Date 09/13/18 Type of Consult ID Requesting Provider: DOMINIQUE BURGESS NP Date/Time of Note DATE: 10/01/18 TIME: 14:31 24 HR Interval Summary Constitutional: no complaints Detailed Summary Eyes: no complaints ENT: no complaints Respiratory: no complaints Cardiovascular: no complaints Gastrointestinal: no complaints Genitourinary: no complaints Musculoskeletal: bone/joint pain Skin: no complaints Neurologic: no complaints Exam/Review of Systems Exam Vitals Vital Signs Date Temp Pulse Resp B/P (MAP) Pulse Ox O2 O2 Flow FiO2 Time Delivery Rate 10/01/18 112 12:05 10/01/18 98.2 18 134/85 100 Room Air 11:14 (101) Intake and Output 09/30/18 09/30/18 10/01/18 1515:00 23:00 07:00 IntakeIntake Total 1000 ml 1150 ml OutputOutput Total 1200 ml 1060 ml BalanceBalance -200 ml 90 ml Constitutional: alert, oriented Psych: no complaints, nl mood/affect Head: normocephalic, atraumatic Eyes: nl conjunctiva, nl lids ENMT: nl external ears & nose, nl nasal mucosa & septum Neck: supple Respiratory: normal air movement Cardiovascular: No edema Gastrointestinal: No distended Musculoskeletal: other (s/p L BKA) Extremities: normal pulses 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: MANAGER RESORT II-XII intact, nl mental status, nl speech Skin: nl turgor Results Result Diagram: 10/01/18 0549 10/01/18 0549 Results 24hrs Laboratory Tests Test 10/01/18 05:49 White Blood Count 9.3 # Red Blood Count 3.46 L Hemoglobin 9.5 L Hematocrit 31.4 L Mean Corpuscular Volume 90.8 Mean Corpuscular Hemoglobin 27.5 L Mean Corpuscular Hemoglobin Concent 30.3 L Red Cell Distribution Width 21.1 H Platelet Count 242 Mean Platelet Volume 10.4 Immature Granulocytes % 1.400 H Neutrophils % 75.3 Lymphocytes % 8.7 L Monocytes % 11.0 Eosinophils % 2.7 Basophils % 0.9 Nucleated Red Blood Cells % 0.0 Immature Granulocytes # 0.130 H Neutrophils # 7.0 Lymphocytes # 0.8 Monocytes # 1.0 H Eosinophils # 0.3 Basophils # 0.1 Nucleated Red Blood Cells # 0.0 Sodium Level 138 Potassium Level 4.7 Chloride Level 112 H Carbon Dioxide Level 22 Anion Gap 4 L Blood Urea Nitrogen 13 Creatinine 1.23 Est Glomerular Filtrat Rate mL/min > 60 Glucose Level 90 Calcium Level 9.1 Phosphorus Level 3.2 Magnesium Level 1.5 L Total Bilirubin 0.5 Direct Bilirubin 0.00 Indirect Bilirubin 0.5 Aspartate Amino Transf (AST/SGOT) 39 Alanine Aminotransferase (ALT/SGPT) 32 Alkaline Phosphatase 105 Total Protein 5.2 L Albumin 2.4 L Globulin 2.80 Albumin/Globulin Ratio 0.85 Medications Medication Current Medications Miscellaneous Information (* Miscellaneous Pharmacy Order) DURAMORPH: 0.2 MG SPI... GIVEN NEURAXIAL XX ; Start 09/13/18 at 16:30 IV Flush (NS 3 ml) 3 ml PER PROTOCOL IV ; Start 09/13/18 at 17:00 Acetaminophen (Tylenol Supp) 650 mg Q6H PRN [place] Fever; Start 09/13/18 at 17:00 Ondansetron HCl (Zofran Inj) 4 mg Q4H PRN IV NAUSEA AND/OR VOMITING; Start 09/13/18 at 17:00 Folic Acid (Folic Acid) 1 mg DAILY PO Last administered on 10/01/18at 09:38; Admin Dose 1 MG; Start 09/14/18 at 09:00 Multivit/Ca Carb/ B Cmplx/FA/Prenat (Flor-Elisa) 1 tab DAILY PO Last administered on 10/01/18at 09:38; Admin Dose 1 TAB; Start 09/14/18 at 09:00 Sodium Phosphate (Kphos Neutral) 1,000 mg BID PO Last administered on 10/01/18at 09:38; Admin Dose 1,000 MG; Start 09/13/18 at 21:00 Hydromorphone HCl (Dilaudid) 1 mg Q4H PRN IV SEVERE PAIN LEVEL 7-10 Last administered on 09/30/18at 10:43; Admin Dose 1 MG; Start 09/13/18 at 17:30 Tacrolimus (Prograf) 1 mg BID PO Last administered on 10/01/18at 09:38; Admin Dose 1 MG; Start 09/13/18 at 22:00 Leflunomide (Arava) 20 mg DAILY PO Last administered on 10/01/18 09:39; Admin Dose 20 MG; Start 09/14/18 at 09:00 Acetaminophen (Tylenol Tab) 650 mg Q6H PRN PO MILD PAIN(1-3)OR ELEVATED TEMP Last administered on 09/17/18 20:44; Admin Dose 650 MG; Start 09/17/18 at 17:00 Enoxaparin Sodium (Lovenox) 40 mg DAILY SC Last administered on 10/01/18 09:41; Admin Dose 40 MG; Start 09/19/18 at 09:00; Status Hold Diltiazem HCl (Cardizem Cd) 180 mg DAILY PO Last administered on 10/01/18 09:38; Admin Dose 180 MG; Start 09/23/18 at 09:00 Potassium Chloride (Klor-Con 10) 20 meq BID PO Last administered on 10/01/18 09:39; Admin Dose 20 MEQ; Start 09/23/18 at 09:00 Famotidine (Pepcid) 20 mg BID PO Last administered on 10/01/18 09:38; Admin Dose 20 MG; Start 09/23/18 at 21:00 Metronidazole (Flagyl) 500 mg Q8 PO Last administered on 10/01/18 14:27; Admin Dose 500 MG; Start 09/24/18 at 22:00 Levofloxacin (Levaquin) 500 mg DAILY@06 PO Last administered on 10/01/18 05:35; Admin Dose 500 MG; Start 09/25/18 at 06:00 Amiodarone HCl (Cordarone) 200 mg DAILY PO Last administered on 10/01/18 09:38; Admin Dose 200 MG; Start 09/26/18 at 10:00 Sodium Chloride 1,000 ml @ 75 mls/hr [id number] IV Last administered on 10/01/18 05:36; Admin Dose 75 MLS/HR; Start 09/29/18 at 14:00 Magnesium Oxide (Mag-Ox 400) 1,200 mg TID PO Last administered on 10/01/18 14:27; Admin Dose 1,200 MG; Start 10/01/18 at 09:00 CLARE IRBY M.D. Oct 01, 2018 14:32
--- NOTE | 2018-10-01 14:53 | CONS ---
Assessment/Plan Assessment/Plan Hospital Course (Demo Recall) New onset paroxysmal atrial fibrillation with RVR: EF preserved. CHADSVASC 2 for HTN and PAD so should be anticoagulated if ok with surgery. 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 Consultation Date/Type/Reason Admit Date/Time September 13, 2018 at 11:48 Initial Consult Date 09/20/18 Type of Consult Cardiology Requesting Provider: DOMINIQUE BURGESS NP Date/Time of Note DATE: 10/01/18 TIME: 14:52 24 HR Interval Summary Free Text/Dictation Remains in sinus. Plan for repeat surgery tomorrow. Exam/Review of Systems Vital Signs Vitals Vital Signs Date Temp Pulse Resp B/P (MAP) Pulse Ox O2 O2 Flow FiO2 Time Delivery Rate 10/01/18 112 12:05 10/01/18 98.2 18 134/85 100 Room Air 11:14 (101) Intake and Output 09/30/18 09/30/18 10/01/18 1515:00 23:00 07:00 IntakeIntake Total 1000 ml 1150 ml OutputOutput Total 1200 ml 1060 ml BalanceBalance -200 ml 90 ml Exam Constitutional: alert, oriented Psych: no complaints, nl mood/affect Head: normocephalic, atraumatic Neck: supple; No jvd Respiratory: clear to auscultation; No crackles/rales Cardiovascular: regular rate and rhythm; No edema Gastrointestinal: soft, non-tender; No distended Musculoskeletal: No nl extremities to inspection 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: nl mental status, nl speech Labs Result Diagram: 10/01/18 0549 10/01/18 0549 Results 24hrs Laboratory Tests Test 10/01/18 05:49 White Blood Count 9.3 # Red Blood Count 3.46 L Hemoglobin 9.5 L Hematocrit 31.4 L Mean Corpuscular Volume 90.8 Mean Corpuscular Hemoglobin 27.5 L Mean Corpuscular Hemoglobin Concent 30.3 L Red Cell Distribution Width 21.1 H Platelet Count 242 Mean Platelet Volume 10.4 Immature Granulocytes % 1.400 H Neutrophils % 75.3 Lymphocytes % 8.7 L Monocytes % 11.0 Eosinophils % 2.7 Basophils % 0.9 Nucleated Red Blood Cells % 0.0 Immature Granulocytes # 0.130 H Neutrophils # 7.0 Lymphocytes # 0.8 Monocytes # 1.0 H Eosinophils # 0.3 Basophils # 0.1 Nucleated Red Blood Cells # 0.0 Sodium Level 138 Potassium Level 4.7 Chloride Level 112 H Carbon Dioxide Level 22 Anion Gap 4 L Blood Urea Nitrogen 13 Creatinine 1.23 Est Glomerular Filtrat Rate mL/min > 60 Glucose Level 90 Calcium Level 9.1 Phosphorus Level 3.2 Magnesium Level 1.5 L Total Bilirubin 0.5 Direct Bilirubin 0.00 Indirect Bilirubin 0.5 Aspartate Amino Transf (AST/SGOT) 39 Alanine Aminotransferase (ALT/SGPT) 32 Alkaline Phosphatase 105 Total Protein 5.2 L Albumin 2.4 L Globulin 2.80 Albumin/Globulin Ratio 0.85 Medications Medications Current Medications Miscellaneous Information (* Miscellaneous Pharmacy Order) DURAMORPH: 0.2 MG SPI... GIVEN NEURAXIAL XX ; Start 09/13/18 at 16:30 IV Flush (NS 3 ml) 3 ml PER PROTOCOL IV ; Start 09/13/18 at 17:00 Acetaminophen (Tylenol Supp) 650 mg Q6H PRN [place] Fever; Start 09/13/18 at 17:00 Ondansetron HCl (Zofran Inj) 4 mg Q4H PRN IV NAUSEA AND/OR VOMITING; Start 09/13/18 at 17:00 Folic Acid (Folic Acid) 1 mg DAILY PO Last administered on 10/01/18at 09:38; Admin Dose 1 MG; Start 09/14/18 at 09:00 Multivit/Ca Carb/ B Cmplx/FA/Prenat (Flor-Elisa) 1 tab DAILY PO Last administered on 10/01/18at 09:38; Admin Dose 1 TAB; Start 09/14/18 at 09:00 Sodium Phosphate (Kphos Neutral) 1,000 mg BID PO Last administered on 10/01/18at 09:38; Admin Dose 1,000 MG; Start 09/13/18 at 21:00 Hydromorphone HCl (Dilaudid) 1 mg Q4H PRN IV SEVERE PAIN LEVEL 7-10 Last administered on 09/30/18at 10:43; Admin Dose 1 MG; Start 09/13/18 at 17:30 Tacrolimus (Prograf) 1 mg BID PO Last administered on 10/01/18 09:38; Admin Dose 1 MG; Start 09/13/18 at 22:00 Leflunomide (Arava) 20 mg DAILY PO Last administered on 10/01/18 09:39; Admin Dose 20 MG; Start 09/14/18 at 09:00 Acetaminophen (Tylenol Tab) 650 mg Q6H PRN PO MILD PAIN(1-3)OR ELEVATED TEMP Last administered on 09/17/18 20:44; Admin Dose 650 MG; Start 09/17/18 at 17:00 Enoxaparin Sodium (Lovenox) 40 mg DAILY SC Last administered on 10/01/18 09:41; Admin Dose 40 MG; Start 09/19/18 at 09:00; Status Hold Diltiazem HCl (Cardizem Cd) 180 mg DAILY PO Last administered on 10/01/18 09:38; Admin Dose 180 MG; Start 09/23/18 at 09:00 Potassium Chloride (Klor-Con 10) 20 meq BID PO Last administered on 10/01/18 09:39; Admin Dose 20 MEQ; Start 09/23/18 at 09:00 Famotidine (Pepcid) 20 mg BID PO Last administered on 10/01/18 09:38; Admin Dose 20 MG; Start 09/23/18 at 21:00 Metronidazole (Flagyl) 500 mg Q8 PO Last administered on 10/01/18 14:27; Admin Dose 500 MG; Start 09/24/18 at 22:00 Levofloxacin (Levaquin) 500 mg DAILY@06 PO Last administered on 10/01/18 05:35; Admin Dose 500 MG; Start 09/25/18 at 06:00 Amiodarone HCl (Cordarone) 200 mg DAILY PO Last administered on 10/01/18 09:38; Admin Dose 200 MG; Start 09/26/18 at 10:00 Sodium Chloride 1,000 ml @ 75 mls/hr [id number] IV Last administered on 10/01/18 05:36; Admin Dose 75 MLS/HR; Start 09/29/18 at 14:00 Magnesium Oxide (Mag-Ox 400) 1,200 mg TID PO Last administered on 6/18/19at 14:27; Admin Dose 1,200 MG; Start 10/01/18 at 09:00 YOLI HOROWITZ Oct 01, 2018 14:53
[2018-10-02] VITALS (22 sets, daily range): BP systolic 81–138; BP diastolic 49–87; PULSE 83–106; RESP 16–25
[2018-10-02] MEDS: LEVOFLOXACIN 500 MG TAB PO SCH (06:15)
[2018-10-02] MEDS ORDERED: [UNRECOGNIZED DRUG - OTHER] XX SCH (08:00)
[2018-10-02] MEDS: MAGNESIUM OXIDE 400 MG TAB PO SCH ×3 (08:11→20:22)
[2018-10-02] MEDS: FAMOTIDINE 20 MG TAB PO SCH ×2 (08:11→20:23)
[2018-10-02] MEDS: POTASSIUM CHLORIDE (SR) 10 MEQ TAB PO SCH ×2 (08:11→20:22)
[2018-10-02] MEDS: FOLIC ACID 1 MG TAB PO SCH (08:11)
[2018-10-02] MEDS: LEFLUNOMIDE 20 MG TAB PO SCH (08:11)
--- NOTE | 2018-10-02 08:11 | CONS ---
Assessment/Plan Assessment/Plan Hospital Course (Demo Recall) 1. Kidney transplant status. The patient had a cadaveric kidney transplant in 2006. He is on immunosuppressive therapy. His renal function has been stable. He is getting some IV fluids to maintain volume status. 2. He is now 19 days postop a left below the knee amputation. His left foot was infected and gangrenous. He now has a L stump that is draining dark bloody purulent material . He underwent a second surgery last week. The left stump wound was opened, drained, debrided and washed out. He now has a drain leading to a wound VAC on the left knee stump. He is going for surgery today to have another left leg stump wound debridement and washout with closure of the wound by Dr. Cortes. 3. Hypertension 4. Peripheral artery disease 5. Anemia , is improving 6. Hyperlipidemia. 7. Hypomagnesemia, I suspect he is loosing magnesium through kidney . I have started him on an oral magnesium supplement and I have had to increase the dose because of continued low serum magnesium level. 8. Hypokalemia. Potassium is back to normal. I have increased his potassium supplements. I will order labs for tomorrow. Consultation Date/Type/Reason Admit Date/Time September 13, 2018 at 11:48 Initial Consult Date 09/13/18 Type of Consult Nephrology Requesting Provider: DOMINIQUE BURGESS NP Date/Time of Note DATE: 10/02/18 TIME: 08:07 24 HR Interval Summary Free Text/Dictation This patient is being seen in nephrologic follow-up. He has a kidney transplant and is on immunosuppressive medication. He is awake and alert. He is scheduled to go to surgery today to have a I&D debridement and closure of the left leg BKA by Dr. Cortes. Constitutional: no complaints Exam/Review of Systems Exam Vitals Vital Signs Date Temp Pulse Resp B/P (MAP) Pulse Ox O2 O2 Flow FiO2 Time Delivery Rate 10/02/18 97.7 94 17 123/83 100 Room Air 07:32 (96) Intake and Output 10/01/18 10/01/18 10/02/18 1515:00 23:00 07:00 IntakeIntake Total 1100 ml 150 ml OutputOutput Total 1400 ml 775 ml BalanceBalance -300 ml -625 ml Exam He is status post a left leg BKA with a bandage drain to a wound VAC. Constitutional: alert, oriented, frail Respiratory: clear to auscultation, normal air movement Cardiovascular: regular rate and rhythm Gastrointestinal: soft, non-tender Results Result Diagram: 10/01/1854810/01/18548 Medications Medication Current Medications Miscellaneous Information (* Miscellaneous Pharmacy Order) DURAMORPH: 0.2 MG SPI... GIVEN NEURAXIAL XX ; Start 09/13/18 at 16:30 IV Flush (NS 3 ml) 3 ml PER PROTOCOL IV ; Start 09/13/18 at 17:00 Acetaminophen (Tylenol Supp) 650 mg Q6H PRN [place] Fever; Start 09/13/18 at 17:00 Ondansetron HCl (Zofran Inj) 4 mg Q4H PRN IV NAUSEA AND/OR VOMITING; Start 09/13/18 at 17:00 Folic Acid (Folic Acid) 1 mg DAILY PO Last administered on 10/01/18at 09:38; Admin Dose 1 MG; Start 09/14/18 at 09:00 Multivit/Ca Carb/ B Cmplx/FA/Prenat (Flor-Elisa) 1 tab DAILY PO Last administered on 10/01/18at 09:38; Admin Dose 1 TAB; Start 09/14/18 at 09:00 Sodium Phosphate (Kphos Neutral) 1,000 mg BID PO Last administered on 10/01/18at 21:51; Admin Dose 1,000 MG; Start 09/13/18 at 21:00 Hydromorphone HCl (Dilaudid) 1 mg Q4H PRN IV SEVERE PAIN LEVEL 7-10 Last administered on 09/30/18at 10:43; Admin Dose 1 MG; Start 09/13/18 at 17:30 Leflunomide (Arava) 20 mg DAILY PO Last administered on 10/01/18at 09:39; Admin Dose 20 MG; Start 09/14/18 at 09:00 Acetaminophen (Tylenol Tab) 650 mg Q6H PRN PO MILD PAIN(1-3)OR ELEVATED TEMP Last administered on 09/17/18at 20:44; Admin Dose 650 MG; Start 09/17/18 at 17:00 Enoxaparin Sodium (Lovenox) 40 mg DAILY SC Last administered on 10/01/18at 09:41; Admin Dose 40 MG; Start 09/19/18 at 09:00; Status Hold Diltiazem HCl (Cardizem Cd) 180 mg DAILY PO Last administered on 10/01/18 09 :38; Admin Dose 180 MG; Start 09/23/18 at 09:00 Potassium Chloride (Klor-Con 10) 20 meq BID PO Last administered on 10/01/18 21:47; Admin Dose 20 MEQ; Start 09/23/18 at 09:00 Famotidine (Pepcid) 20 mg BID PO Last administered on 10/01/18 21:47; Admin Dose 20 MG; Start 09/23/18 at 21:00 Levofloxacin (Levaquin) 500 mg DAILY@06 PO Last administered on 10/02/18 06:15; Admin Dose 500 MG; Start 09/25/18 at 06:00 Amiodarone HCl (Cordarone) 200 mg DAILY PO Last administered on 10/01/18 09:38; Admin Dose 200 MG; Start 09/26/18 at 10:00 Sodium Chloride 1,000 ml @ 75 mls/hr [id number] IV Last administered on 10/01/18 18:23; Admin Dose 75 MLS/HR; Start 09/29/18 at 14:00 Magnesium Oxide (Mag-Ox 400) 1,200 mg TID PO Last administered on 10/01/18 21:47; Admin Dose 1,200 MG; Start 10/01/18 at 09:00 Miscellaneous Information (*Order Clarification Bulletin) RN TO GIVE PROGRAF DOSE IN... Q8H XX ; Start 10/02/18 at 08:00; Stop 10/02/18 at 09:00 Metronidazole (Flagyl) 500 mg Q8 PO ; Start 10/02/18 at 08:00 Tacrolimus (Prograf) 1 mg BID PO ; Start 10/02/18 at 09:00; Status ERIN QUEVEDO MD Oct 02, 2018 08:11
[2018-10-02] MEDS: MULTIVIT/CA CARB/B CMPLX/FA TAB PO SCH (08:12)
[2018-10-02] MEDS: SOD PHOS MONO/DIBAS 250 MG TAB PO SCH ×2 (08:12→20:21)
[2018-10-02] MEDS: AMIODARONE 200 MG TAB PO SCH (08:13)
[2018-10-02] MEDS: SOD CHLORIDE 0.9% 1,000 ML IV SCH (08:13)
[2018-10-02] MEDS: DILTIAZEM (CD) 180 MG CAP PO SCH (08:13)
[2018-10-02] MEDS: metroNIDAZOLE 250 MG TAB PO SCH ×3 (08:42→20:23)
[2018-10-02] MEDS: TACROLIMUS 1 MG CAP PO SCH ×2 (08:42→20:22)
[2018-10-02] MEDS ORDERED: TACROLIMUS 0.5 MG CAP PO SCH (09:00)
--- NOTE | 2018-10-02 10:02 | PREAC ---
Date/Time of Note Date/Time of Note DATE: 10/02/18 TIME: 09:52 Anesthesia Eval and Record Evaluation Time Pre-Procedure Interview DATE: 10/02/18 TIME: 09:52 Age 58 Sex male NPO: 8 hrs Preoperative diagnosis Infected left below knee amputation stump Planned procedure L belowe knee amputation revision possible closure Past Medical History Past Medical History: Includes (PAD) Cardio: HTN, Dyslipidemia Heme: Anemia Surgery & Anesthesia Issues No known issue (bilateral kidney transplant, peripheral angiogram) Meds Anticoagulation: No Beta Claudine within 24 hr: Yes Reported Medications Calcitriol* (Calcitriol*) 0.5 Mcg Capsule, 0.5 MCG PO TID, CAP 09/13/18 Leflunomide* (Leflunomide*) 20 Mg Tablet, 20 MG PO BID, #30 TAB 09/13/18 Tacrolimus* (Tacrolimus*) 1 Mg Capsule, 1 MG PO TID, CAP 09/13/18 Multivit/Ca Carb/B Cmplx/Fa* (Flor-Elisa*) 1 Tab Tab, 1 TAB PO DAILY, TAB 09/13/18 Phosphorus #1 (Phospha 250 Neutral Tablet) 250 Mg Tablet, 1000 MG PO BID, TAB 09/13/18 Iron Polysaccharides Complex (Ferrex 150) 150 Mg Capsule, 150 MG PO BID, #30 CAP 09/13/18 Nifedipine* (Nifedipine ER*) 30 Mg Tablet.sa, 30 MG PO DAILY, TAB.SA 09/13/18 Leflunomide* (Arava*) 20 Mg Tablet, 20 MG PO BID, TAB 09/13/18 Pravastatin Sodium* (Pravastatin Sodium*) 20 Mg Tablet, 20 MG PO HS, TAB 09/13/18 Clopidogrel Bisulfate (Clopidogrel) 75 Mg Tablet, 75 MG PO DAILY, #30 TAB 09/13/18 Folic Acid* (Folic Acid*) 1 Mg Tablet, 1 MG PO DAILY, TAB 09/13/18 Labetalol Hcl* (Labetalol Hcl*) 100 Mg Tablet, 100 MG PO BID, TAB 09/13/18 Current Medications Miscellaneous Information (* Miscellaneous Pharmacy Order) DURAMORPH: 0.2 MG SPI... GIVEN NEURAXIAL XX ; Start 09/13/18 at 16:30 IV Flush (NS 3 ml) 3 ml PER PROTOCOL IV ; Start 09/13/18 at 17:00 Acetaminophen (Tylenol Supp) 650 mg Q6H PRN [place] Fever; Start 09/13/18 at 17:00 Ondansetron HCl (Zofran Inj) 4 mg Q4H PRN IV NAUSEA AND/OR VOMITING; Start 09/13/18 at 17:00 Folic Acid (Folic Acid) 1 mg DAILY PO Last administered on 10/02/18 08:11; Admin Dose 1 MG; Start 09/14/18 at 09:00 Multivit/Ca Carb/ B Cmplx/FA/Prenat (Flor-Elisa) 1 tab DAILY PO Last adm inistered on 10/02/18 08:12; Admin Dose 1 TAB; Start 09/14/18 at 09:00 Sodium Phosphate (Kphos Neutral) 1,000 mg BID PO Last administered on 10/02/18 08:12; Admin Dose 1,000 MG; Start 09/13/18 at 21:00 Hydromorphone HCl (Dilaudid) 1 mg Q4H PRN IV SEVERE PAIN LEVEL 7-10 Last administered on 09/30/18at 10:43; Admin Dose 1 MG; Start 09/13/18 at 17:30 Leflunomide (Arava) 20 mg DAILY PO Last administered on 10/02/18 08:11; Admin Dose 20 MG; Start 09/14/18 at 09:00 Acetaminophen (Tylenol Tab) 650 mg Q6H PRN PO MILD PAIN(1-3)OR ELEVATED TEMP Last administered on 09/17/18 20:44; Admin Dose 650 MG; Start 09/17/18 at 17:00 Enoxaparin Sodium (Lovenox) 40 mg DAILY SC Last administered on 10/01/18at 0 9:41; Admin Dose 40 MG; Start 09/19/18 at 09:00; Status Hold Diltiazem HCl (Cardizem Cd) 180 mg DAILY PO Last administered on 10/02/18 08:13; Admin Dose 180 MG; Start 09/23/18 at 09:00 Potassium Chloride (Klor-Con 10) 20 meq BID PO Last administered on 10/02/18 08:11; Admin Dose 20 MEQ; Start 09/23/18 at 09:00 Famotidine (Pepcid) 20 mg BID PO Last administered on 6/19/19at 08:11; Admin Dose 20 MG; Start 09/23/18 at 21:00 Levofloxacin (Levaquin) 500 mg DAILY@06 PO Last administered on 10/02/18at 06:15; Admin Dose 500 MG; Start 09/25/18 at 06:00 Amiodarone HCl (Cordarone) 200 mg DAILY PO Last administered on 10/02/18at 08:13; Admin Dose 200 MG; Start 09/26/18 at 10:00 Sodium Chloride 1,000 ml @ 75 mls/hr [id number] IV Last administered on 10/02/18at 08:13; Admin Dose 75 MLS/HR; Start 09/29/18 at 14:00 Magnesium Oxide (Mag-Ox 400) 1,200 mg TID PO Last administered on 10/02/18 08:11; Admin Dose 1,200 MG; Start 10/01/18 at 09:00 Metronidazole (Flagyl) 500 mg Q8 PO Last administered on 10/02/18at 08:42; Admin Dose 500 MG; Start 10/02/18 at 08:00 Tacrolimus (Prograf) 1 mg BID PO Last administered on 10/02/18 08:42; Admin Dose 1 MG; Start 10/02/18 at 09:00 Meds reviewed: Yes Allergies Coded Allergies: cefazolin (Verified Allergy, Intermediate, HIVES, 09/14/18) meropenem (Verified Allergy, Intermediate, 09/14/18) pruritus (observed on 09/13/2018) Allergies Reviewed: Yes Labs/Studies Labs Reviewed: Reviewed by anesthesiologist Result Diagram: 10/01/1849 10/01/1849 test: N/A Studies: ECG (w/ new onset paroxysmal AFIB w/ RVR, currently SR), CXR (No significant interval change.. Cardiomegaly and atherosclerotic aorta. Possible small hiatal hernia.), 2D Echo (Ejection fraction is visually estimated at ) Pre-procedure Exam Last vitals Vital Signs Date Temp Pulse Resp B/P (MAP) Pulse Ox O2 O2 Flow FiO2 Time Delivery Rate 10/02/18 91 08:11 10/02/18 97.7 17 123/83 100 Room Air 07:32 (96) Airway: Adequate mouth opening, Adequate thyromental dist Mallampati: Mallampati II Teeth: Abnormal (missing molars/premolars) Lung: Normal Heart: Normal ASA Physical Status ASA physical status: 3 Emergency: None Planned Anesthetic General/MAC: ETT, LMA, MAC (to the discretion of the anesthesiologist) Neuraxial: Spinal Pre-operative Attestations Prior to commencing anesthesia and surgery, the patient was re-evaluated, there was verification of: *The patient's identity *The results of appropriate recent lab work and preoperative vital signs *The above evaluation not changing prior to induction *Anesthetic plan, risk benefits, alternative and complications discussed with patient/family; questions answered; patient/family understands, accepts and wishes to proceed. REYES MONTOYA Oct 02, 2018 10:02
--- NOTE | 2018-10-02 10:03 | CONS ---
Assessment/Plan Assessment/Plan Hospital Course (Demo Recall) New onset paroxysmal atrial fibrillation with RVR: EF preserved. CHADSVASC 2 for HTN and PAD so should be anticoagulated if ok with surgery. 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 Consultation Date/Type/Reason Admit Date/Time September 13, 2018 at 11:48 Initial Consult Date 09/20/18 Type of Consult Cardiology Requesting Provider: DOMINIQUE BURGESS NP Date/Time of Note DATE: 10/02/18 TIME: 10:02 24 HR Interval Summary Free Text/Dictation No events. Remains in sinus. Plan for surgery at noon Exam/Review of Systems Vital Signs Vitals Vital Signs Date Temp Pulse Resp B/P (MAP) Pulse Ox O2 O2 Flow FiO2 Time Delivery Rate 10/02/18 91 08:11 10/02/18 97.7 17 123/83 100 Room Air 07:32 (96) Intake and Output 10/01/18 10/01/18 10/02/18 1515:00 23:00 07:00 IntakeIntake Total 1100 ml 150 ml OutputOutput Total 1400 ml 775 ml BalanceBalance -300 ml -625 ml Exam Constitutional: alert, oriented Psych: no complaints, nl mood/affect Neck: supple; No jvd Respiratory: clear to auscultation Cardiovascular: regular rate and rhythm; No edema Gastrointestinal: soft, non-tender; No distended Musculoskeletal: No nl extremities to inspection 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: nl mental status, nl speech Labs Result Diagram: 10/01/18 0549 10/01/18 0549 Medications Medications Current Medications Miscellaneous Information (* Miscellaneous Pharmacy Order) DURAMORPH: 0.2 MG SPI... GIVEN NEURAXIAL XX ; Start 09/13/18 at 16:30 IV Flush (NS 3 ml) 3 ml PER PROTOCOL IV ; Start 09/13/18 at 17:00 Acetaminophen (Tylenol Supp) 650 mg Q6H PRN [place] Fever; Start 09/13/18 at 17:00 Ondansetron HCl (Zofran Inj) 4 mg Q4H PRN IV NAUSEA AND/OR VOMITING; Start 09/13/18 at 17:00 Folic Acid (Folic Acid) 1 mg DAILY PO Last administered on 10/02/18 08:11; A dmin Dose 1 MG; Start 09/14/18 at 09:00 Multivit/Ca Carb/ B Cmplx/FA/Prenat (Flor-Elisa) 1 tab DAILY PO Last administered on 10/02/18 08:12; Admin Dose 1 TAB; Start 09/14/18 at 09:00 Sodium Phosphate (Kphos Neutral) 1,000 mg BID PO Last administered on 10/02/18 08:12; Admin Dose 1,000 MG; Start 09/13/18 at 21:00 Hydromorphone HCl (Dilaudid) 1 mg Q4H PRN IV SEVERE PAIN LEVEL 7-10 Last administered on 09/30/18 10:43; Admin Dose 1 MG; Start 09/13/18 at 17:30 Leflunomide (Arava) 20 mg DAILY PO Last administered on 10/02/18 08:11; Admin Dose 20 MG; Start 09/14/18 at 09:00 Acetaminophen (Tylenol Tab) 650 mg Q6H PRN PO MILD PAIN(1-3)OR ELEVATED TEMP Last administered on 09/17/18 20:44; Admin Dose 650 MG; Start 09/17/18 at 17:00 Enoxaparin Sodium (Lovenox) 40 mg DAILY SC Last administered on 10/01/18 09:41; Admin Dose 40 MG; Start 09/19/18 at 09:00; Status Hold Diltiazem HCl (Cardizem Cd) 180 mg DAILY PO Last administered on 10/02/18 08:13; Admin Dose 180 MG; Start 09/23/18 at 09:00 Potassium Chloride (Klor-Con 10) 20 meq BID PO Last administered on 10/02/18 08:11; Admin Dose 20 MEQ; Start 09/23/18 at 09:00 Famotidine (Pepcid) 20 mg BID PO Last administered on 10/02/18 08:11; Admin Dose 20 MG; Start 09/23/18 at 21:00 Levofloxacin (Levaquin) 500 mg DAILY@06 PO Last administered on 10/02/18 06:15; Admin Dose 500 MG; Start 09/25/18 at 06:00 Amiodarone HCl (Cordarone) 200 mg DAILY PO Last administered on 10/02/18 08:13; Admin Dose 200 MG; Start 09/26/18 at 10:00 Sodium Chloride 1,000 ml @ 75 mls/hr [id number] IV Last administered on 10/02/18 08:13; Admin Dose 75 MLS/HR; Start 09/29/18 at 14:00 Magnesium Oxide (Mag-Ox 400) 1,200 mg TID PO Last administered on 10/02/18 08:11; Admin Dose 1,200 MG; Start 10/01/18 at 09:00 Metronidazole (Flagyl) 500 mg Q8 PO Last administered on 10/02/18 08:42; Admin Dose 500 MG; Start 10/02/18 at 08:00 Tacrolimus (Prograf) 1 mg BID PO Last administered on 10/02/18 08:42; Admin Dose 1 MG; Start 10/02/18 at 09:00 YOLI HOROWITZ Oct 02, 2018 10:03
[2018-10-02] MEDS ORDERED: POLYMYXIN/BACITRACIN 1L IRRIG ONE (12:06)
[2018-10-02] MEDS ORDERED: morphine SULFATE/PF (10 MG/10 ML) INJ ONE ×2 (12:19→12:21)
[2018-10-02] MEDS ORDERED: PROPOFOL 100 ML ONE (12:19)
[2018-10-02] MEDS ORDERED: MIDAZOLAM 1 MG/ML 2 ML INJ ONE ×2 (12:19→12:22)
--- NOTE | 2018-10-02 12:33 | HPN ---
Date/Time of Note Date/Time of Note DATE: 10/02/18 TIME: 12:33 Interval H&P Admission Note Pt. seen H&P reviewed: No system changes AMARILIS RIBERA MD Oct 02, 2018 12:33
--- NOTE | 2018-10-02 12:46 | CONS ---
Assessment/Plan Assessment/Plan Hospital Course (Demo Recall) # sepsis, miskuloskeletal, derm - s/p sepsis due infected left BKA stump - infected and necrotizing left below knee amputation stump - s/p exploration and washout, debridement and VAC placement left infected below knee amputation stump on 09/19/2018; Wound culture grew Bacteroides Fragilis on 09/18/2018; Intraop culture grew coag neg staph and Bacteroides Fragilis on 09/19/18. CoNS is a likely colonizer; Fungal culture 09/19/18 grew A. versicolor group, submitted reference lab for sensitivity; path negative for malignancy - h/o draining wound, necrosis and infection of L TMA site. ESR 121 on 08/16. - s/p L BKA on 09/13/2018 - h/o gangrene and infection of L foot prior to admission # renal, cardiac - h/o renal transplant at [facility] in 2006, maintained on tacrolimus - immunocompromised status - hypomagnesemia - repleted - A fib with RVR, converted to SR - hypertension # other conditions - expected post-op anemia - transaminitis - improving - adverse reaction to cefazolin (hives), meropenem (pruritus) Pt previously took aztreonam (09/13/2018-09/24/2018) recommendations: - the fungal culture from 09/19/2018 grew A. versicolor group, I requested its sensitivity on 10/02/2018 (Nena at micro lab) - Dr. Cortes will send more cultures from the procedure on 10/02/2018, and we will review the result - Continue levofloxacin (09/17/2018-) and metronidazole (09/17/2018-) for stump infection; if the wound is healing well, these antibiotics may be discontinued pos-op - Pt's aspergillus could be a colonizer of the wound; however, Pt's immunocompromised and I favor its treatment until I get the final result of cultures and information on the status of his wound from Dr. Cortes. I will start Ambisome at 3 mg/kg while waiting for sensitivity result, with premedication with PO benadryl and normal saline (10/02/2018-) - the antifungal of choice for aspergillus is voriconazole, but it potently interacts with tacrolimus, and its level must be adjusted. [facility] does not have an inhouse assay for tacrolimus level and so tacrolimus cannot be dosed in a timely manner. This is a safety concern. So I order Ambisome instead of voriconazole for this Pt management d/w Pt's RN Ktae, PharmD [place] and Nena at micro lab the total time I took to care for this Pt today was from 1150 to 1240 Consultation Date/Type/Reason Admit Date/Time September 13, 2018 at 11:48 Initial Consult Date 09/13/18 Type of Consult ID Requesting Provider: DOMINIQUE BURGESS NP Date/Time of Note DATE: 10/02/18 TIME: 12:37 24 HR Interval Summary Free Text/Dictation Pt was in the OR Exam/Review of Systems Exam Vitals Vital Signs Date Temp Pulse Resp B/P (MAP) Pulse Ox O2 O2 Flow FiO2 Time Delivery Rate 10/02/18 100 12:05 10/02/18 97.9 18 116/76 100 Room Air 11:11 (89) Intake and Output 10/01/18 10/01/18 10/02/18 1515:00 23:00 07:00 IntakeIntake Total 1100 ml 150 ml OutputOutput Total 1400 ml 775 ml BalanceBalance -300 ml -625 ml Results Result Diagram: 10/02/18 0943 10/02/18 0943 Results 24hrs Laboratory Tests Test 10/02/18 09:43 White Blood Count 8.3 Red Blood Count 3.51 L Hemoglobin 9.6 L Hematocrit 31.7 L Mean Corpuscular Volume 90.3 Mean Corpuscular Hemoglobin 27.4 L Mean Corpuscular Hemoglobin Concent 30.3 L Red Cell Distribution Width 21.3 H Platelet Count 214 Mean Platelet Volume 9.9 Immature Granulocytes % 1.600 H Neutrophils % 72.1 Lymphocytes % 11.0 L Monocytes % 11.2 H Eosinophils % 3.3 Basophils % 0.8 Nucleated Red Blood Cells % 0.0 Immature Granulocytes # 0.130 H Neutrophils # 6.0 Lymphocytes # 0.9 Monocytes # 0.9 Eosinophils # 0.3 Basophils # 0.1 Nucleated Red Blood Cells # 0.0 Sodium Level 143 Potassium Level 4.5 Chloride Level 113 H Carbon Dioxide Level 22 Anion Gap 8 Blood Urea Nitrogen 12 Creatinine 1.08 Est Glomerular Filtrat Rate mL/min > 60 Glucose Level 82 Calcium Level 8.8 Phosphorus Level 2.8 Magnesium Level 1.4 L Medications Medication Current Medications Miscellaneous Information (* Miscellaneous Pharmacy Order) DURAMORPH: 0.2 MG SPI... GIVEN NEURAXIAL XX ; Start 09/13/18 at 16:30 IV Flush (NS 3 ml) 3 ml PER PROTOCOL IV ; Start 09/13/18 at 17:00 Acetaminophen (Tylenol Supp) 650 mg Q6H PRN [place] Fever; Start 09/13/18 at 17:00 Ondansetron HCl (Zofran Inj) 4 mg Q4H PRN IV NAUSEA AND/OR VOMITING; Start 09/13/18 at 17:00 Folic Acid (Folic Acid) 1 mg DAILY PO Last administered on 10/02/18at 08:11; Admin Dose 1 MG; Start 09/14/18 at 09:00 Multivit/Ca Carb/ B Cmplx/FA/Prenat (Flor-Elisa) 1 tab DAILY PO Last administered on 10/02/18at 08:12; Admin Dose 1 TAB; Start 09/14/18 at 09:00 Sodium Phosphate (Kphos Neutral) 1,000 mg BID PO Last administered on 10/02/18at 08:12; Admin Dose 1,000 MG; Start 09/13/18 at 21:00 Hydromorphone HCl (Dilaudid) 1 mg Q4H PRN IV SEVERE PAIN LEVEL 7-10 Last administered on 09/30/18at 10:43; Admin Dose 1 MG; Start 09/13/18 at 17:30 Leflunomide (Arava) 20 mg DAILY PO Last administered on 10/02/18 08:11; Admin Dose 20 MG; Start 09/14/18 at 09:00 Acetaminophen (Tylenol Tab) 650 mg Q6H PRN PO MILD PAIN(1-3)OR ELEVATED TEMP Last administered on 09/17/18at 20:44; Admin Dose 650 MG; Start 09/17/18 at 17:00 Enoxaparin Sodium (Lovenox) 40 mg DAILY SC Last administered on 10/01/18at 09:41; Admin Dose 40 MG; Start 09/19/18 at 09:00; Status Hold Diltiazem HCl (Cardizem Cd) 180 mg DAILY PO Last administered on 10/02/18at 08:13; Admin Dose 180 MG; Start 09/23/18 at 09:00 Potassium Chloride (Klor-Con 10) 20 meq BID PO Last administered on 10/02/18 08:11; Admin Dose 20 MEQ; Start 09/23/18 at 09:00 Famotidine (Pepcid) 20 mg BID PO Last administered on 10/02/18 08:11; Admin Dose 20 MG; Start 09/23/18 at 21:00 Levofloxacin (Levaquin) 500 mg DAILY@06 PO Last administered on 10/02/18 06:15; Admin Dose 500 MG; Start 09/25/18 at 06:00 Amiodarone HCl (Cordarone) 200 mg DAILY PO Last administered on 10/02/18 08:13; Admin Dose 200 MG; Start 09/26/18 at 10:00 Sodium Chloride 1,000 ml @ 75 mls/hr [id number] IV Last administered on 10/02/18 08:13; Admin Dose 75 MLS/HR; Start 09/29/18 at 14:00 Magnesium Oxide (Mag-Ox 400) 1,200 mg TID PO Last administered on 10/02/18 08:11; Admin Dose 1,200 MG; Start 10/01/18 at 09:00 Metronidazole (Flagyl) 500 mg Q8 PO Last administered on 10/02/18 08:42; Admin Dose 500 MG; Start 10/02/18 at 08:00 Tacrolimus (Prograf) 1 mg BID PO Last administered on 10/02/18 08:42; Admin Dose 1 MG; Start 10/02/18 at 09:00 Amphotericin B Liposome 150 mg/ Dextrose 300 ml @ 200 mls/hr Q24H IVPB ; Start 10/02/18 at 18:00; Status UNV Diphenhydramine HCl (Benadryl) 50 mg DAILY PO ; Start 10/02/18 at 17:30; Status UNV Sodium Chloride 250 ml @ 250 mls/hr Q1H ONCE IV ; Start 10/02/18 at 17:30; Stop 10/02/18 at 18:29; Status UNV CLARE IRBY M.D. Oct 02, 2018 12:46
[2018-10-02] MEDS ORDERED: PHENYLephrine (100 MCG/ML) 10ML SYG ONE (12:55)
[2018-10-02] MEDS ORDERED: POLYMYXIN B 500000 UNIT INJ ONE (13:03)
[2018-10-02] MEDS ORDERED: BACITRACIN 50000 UNITS INJ ONE (13:04)
--- NOTE | 2018-10-02 14:14 | SIPON ---
Date/Time of Note Date/Time of Note DATE: 10/02/18 TIME: 14:12 Operative Report Preoperative Diagnosis L BKA infection Postoperative Diagnosis same Operation/Procedure Performed revision of L BKA, VAC placement Surgeon see signature line assistant golf professional none Anesthesia: spinal Estimated blood loss: 50 - 100 ml's Transfusion Required none Specimen necrotic skin, muscle and bone Grafts/Implants none Complications none AMARILIS RIBERA MD Oct 02, 2018 14:14
--- NOTE | 2018-10-02 14:51 | PN ---
Date/Time of Note Date/Time of Note DATE: 10/02/18 TIME: 14:49 Assessment/Plan VTE Prophylaxis Risk score (from Nsg)>0 risk: 5 SCD applied (from Ns): No SCD contraindicated: other (no legs) Pharmacological prophylaxis: NA/contraindicated Pharm contraindication: surgical contra Lines/Catheters [facility] Peripheral IV Urinary Cath still in place: No Assessment/Plan Assessment/Plan 1. Severe left peripheral artery disease with infected left TMA stump- stable - Vascular consultation appreciated. s/p Urgent left below-knee amputation on 09/13/2018 with washout. Further revision on 10/02. - Will hold Lovenox dose after today - Antibiotics as per ID 2. SVT secondary to A. fib with RVR - Noted with some episodes of HR in the 150s on telemonitor - Cardiology on board and appreciate recommendations. Continue on amiodarone until 10/20, 1 month tx. continue on diltiazem - Once cleared by Surgeon, will start NOAC for afib. Will have revision of stump next week so hold off for now 3. Sepsis with leukocytosis, febrile illness, and lactic acidosis secondary to lower extremity infection- resolving - remains afebrile and nl WBC - wound culture results noted - ID on board for antibiotic recommendations 4. Peripheral vascular disease. - Continue statins 5. History of renal transplant. - nephrology on board and appreciate recommendations. Cr improving - avoiding nephrotoxic agents - continue immunosuppressants 6. Normocytic anemia - stable - no need for transfusions at this time 7. HLD - on statin 8. HypoMg - replacing 9. Disposition - s/p BKA revision today. Result Diagram: 10/02/18 0943 10/02/18 0943 Subjective 24 Hr Interval Summary Free Text/Dictation No acute overnight events. Patient taken to surgery today. Exam/Review of Systems Exam Vitals Vital Signs Date Temp Pulse Resp B/P (MAP) Pulse Ox O2 O2 Flow FiO2 Time Delivery Rate 10/02/18 94 21 100/71 98 Room Air 14:42 (81) 10/02/18 98.0 13:56 Intake and Output 10/01/18 10/01/18 10/02/18 1515:00 23:00 07:00 IntakeIntake Total 1100 ml 150 ml OutputOutput Total 1400 ml 775 ml BalanceBalance -300 ml -625 ml Exam Did not see, was in OR all day. Results Results 24hrs Laboratory Tests Test 10/02/18 09:43 White Blood Count 8.3 Red Blood Count 3.51 L Hemoglobin 9.6 L Hematocrit 31.7 L Mean Corpuscular Volume 90.3 Mean Corpuscular Hemoglobin 27.4 L Mean Corpuscular Hemoglobin Concent 30.3 L Red Cell Distribution Width 21.3 H Platelet Count 214 Mean Platelet Volume 9.9 Immature Granulocytes % 1.600 H Neutrophils % 72.1 Lymphocytes % 11.0 L Monocytes % 11.2 H Eosinophils % 3.3 Basophils % 0.8 Nucleated Red Blood Cells % 0.0 Immature Granulocytes # 0.130 H Neutrophils # 6.0 Lymphocytes # 0.9 Monocytes # 0.9 Eosinophils # 0.3 Basophils # 0.1 Nucleated Red Blood Cells # 0.0 Sodium Level 143 Potassium Level 4.5 Chloride Level 113 H Carbon Dioxide Level 22 Anion Gap 8 Blood Urea Nitrogen 12 Creatinine 1.08 Est Glomerular Filtrat Rate mL/min > 60 Glucose Level 82 Calcium Level 8.8 Phosphorus Level 2.8 Magnesium Level 1.4 L Medications Medication Current Medications Miscellaneous Information (* Miscellaneous Pharmacy Order) DURAMORPH: 0.2 MG SPI... GIVEN NEURAXIAL XX ; Start 09/13/18 at 16:30 IV Flush (NS 3 ml) 3 ml PER PROTOCOL IV ; Start 09/13/18 at 17:00 Acetaminophen (Tylenol Supp) 650 mg Q6H PRN [place] Fever; Start 09/13/18 at 17:00 Ondansetron HCl (Zofran Inj) 4 mg Q4H PRN IV NAUSEA AND/OR VOMITING; Start 09/13/18 at 17:00 Folic Acid (Folic Acid) 1 mg DAILY PO Last administered on 10/02/18at 08:11; Admin Dose 1 MG; Start 09/14/18 at 09:00 Multivit/Ca Carb/ B Cmplx/FA/Prenat (Flor-Elisa) 1 tab DAILY PO Last administered on 10/02/18at 08:12; Admin Dose 1 TAB; Start 09/14/18 at 09:00 Sodium Phosphate (Kphos Neutral) 1,000 mg BID PO Last administered on 10/02/18at 08:12; Admin Dose 1,000 MG; Start 09/13/18 at 21:00 Hydromorphone HCl (Dilaudid) 1 mg Q4H PRN IV SEVERE PAIN LEVEL 7-10 Last admi nistered on 09/30/18 10:43; Admin Dose 1 MG; Start 09/13/18 at 17:30 Leflunomide (Arava) 20 mg DAILY PO Last administered on 10/02/18 08:11; Admin Dose 20 MG; Start 09/14/18 at 09:00 Acetaminophen (Tylenol Tab) 650 mg Q6H PRN PO MILD PAIN(1-3)OR ELEVATED TEMP Last administered on 09/17/18 20:44; Admin Dose 650 MG; Start 09/17/18 at 17:00 Enoxaparin Sodium (Lovenox) 40 mg DAILY SC Last administered on 10/01/18 09:41; Admin Dose 40 MG; Start 09/19/18 at 09:00; Status Hold Diltiazem HCl (Cardizem Cd) 180 mg DAILY PO Last administered on 10/02/18 08:13; Admin Dose 180 MG; Start 09/23/18 at 09:00 Potassium Chloride (Klor-Con 10) 20 meq BID PO Last administered on 10/02/18 08:11; Admin Dose 20 MEQ; Start 09/23/18 at 09:00 Famotidine (Pepcid) 20 mg BID PO Last administered on 10/02/18 08:11; Admin Dose 20 MG; Start 09/23/18 at 21:00 Levofloxacin (Levaquin) 500 mg DAILY@06 PO Last administered on 10/02/18 06:15; Admin Dose 500 MG; Start 09/25/18 at 06:00 Amiodarone HCl (Cordarone) 200 mg DAILY PO Last administered on 10/02/18 08:13; Admin Dose 200 MG; Start 09/26/18 at 10:00 Magnesium Oxide (Mag-Ox 400) 1,200 mg TID PO Last administered on 10/02/18 08:11; Admin Dose 1,200 MG; Start 10/01/18 at 09:00 Metronidazole (Flagyl) 500 mg Q8 PO Last administered on 10/02/18 08:42; Admin Dose 500 MG; Start 10/02/18 at 08:00 Tacrolimus (Prograf) 1 mg BID PO Last administered on 6/19/19at 08:42; Admin Dose 1 MG; Start 10/02/18 at 09:00 Amphotericin B Liposome 150 mg/ Dextrose 300 ml @ 200 mls/hr Q24H IVPB ; Start 10/02/18 at 18:00 Diphenhydramine HCl (Benadryl) 50 mg Q24H PO ; Start 10/02/18 at 17:30 Sodium Chloride 250 ml @ 250 mls/hr Q1H ONCE IV ; Start 10/02/18 at 17:30; Stop 10/02/18 at 18:29 Albumin Human 250 ml @ 250 mls/hr ONCE ONCE IV ; Start 10/02/18 at 15:30; Stop 10/02/18 at 16:29 AMARILIS MIRELES MD Oct 02, 2018 14:51
--- NOTE | 2018-10-02 14:53 | PAC ---
Date/Time of Note Date/Time of Note DATE: 10/02/18 TIME: 14:53 Post-Anesthesia Notes Post-Anesthesia Note Last documented vital signs Vital Signs Date Temp Pulse Resp B/P (MAP) Pulse Ox O2 O2 Flow FiO2 Time Delivery Rate 10/02/18 98.1 94 21 100/71 98 Room Air 14:42 (81) 10/02/18 98.0 13:56 Activity: WNL Respiratory function: WNL Cardiovascular function: WNL Mental status: Baseline Pain reasonably controlled: Yes Hydration appropriate: Yes Nausea/Vomiting absent: No VALE KIRK MD Oct 02, 2018 14:53
[2018-10-02] MEDS ORDERED: ALBUMIN HUMAN 5% 250 ML IV ONE (15:30)
[2018-10-02] MEDS: DIPHENHYDRAMINE 50 MG CAP PO SCH (17:07)
[2018-10-02] MEDS ORDERED: SOD CHLORIDE 0.9% 250 ML IV ONE (17:30)
[2018-10-02] MEDS: DEXTROSE 5% IVPB SCH (17:59)
[2018-10-02] MEDS: AMPHOTERICIN B LIPOSOME IVPB SCH (17:59)
--- NOTE | 2018-10-02 20:18 | PAC ---
Date/Time of Note Date/Time of Note DATE: 10/02/18 TIME: 20:18 Post-Anesthesia Notes Post-Anesthesia Note Last documented vital signs Vital Signs Date Temp Pulse Resp B/P (MAP) Pulse Ox O2 O2 Flow FiO2 Time Delivery Rate 10/02/18 96 16:10 10/02/18 97.4 98 20 104/74 99 Room Air 15:19 (84) Activity: WNL Respiratory function: WNL Cardiovascular function: WNL Mental status: Baseline Pain reasonably controlled: Yes Hydration appropriate: Yes Nausea/Vomiting absent: No VALE KIRK MD Oct 02, 2018 20:18
[2018-10-03] VITALS (11 sets, daily range): BP systolic 113–155; BP diastolic 57–87; PULSE 68–115; RESP 18–22
[2018-10-03] MEDS: HYDROmorphONE 1 MG/ML SYG IV PRN (00:11)
--- NOTE | 2018-10-03 01:25 | OPR ---
DATE OF OPERATION: 10/02/2018 PREOPERATIVE DIAGNOSIS: Open necrotic left below-knee amputation stump. POSTOPERATIVE DIAGNOSIS: Open necrotic left below-knee amputation stump. PROCEDURE PERFORMED: Debridement, revision and partial closure of left below- knee amputation stump. SURGEON: Amarilis Cortes MD ANESTHESIA: Spinal anesthesia. ESTIMATED BLOOD LOSS: 50 mL. COMPLICATIONS: There were no intraprocedural complications. INDICATIONS: This is a 58-year-old gentleman with end-stage renal disease who had a kidney transplant, so he is immunosuppressed. His kidney is working well. He has peripheral arterial disease. He had developed extensive gangrene of the left foot. I did a below-knee amputation about 3 weeks ago, kind of urgently. It was a severely infected foot. The stump, when I did the procedure, looked healthy, and I did not see any sign of infection at that level, but within several days, he developed fevers and white count and purulent drainage from the stump, so I took him back to the OR, opened it up, debrided it, and significant amount of the calf muscle had just been eaten away by bacteria, it was just liquefied necrosis. I debrided it extensively. A lot of the skin on the flap was necrotic as well, so I debrided it and then left it open with a VAC. We have been changing the VAC 3 times a week. The infection has cleared now. White count is normal. He is not having any fevers. The tissue that is left is either demarcated and sort of dry eschar or healthy tissues. I brought him back today for debridement and partial closure. I debrided all the necrotic tissue and I was able to cut the bone back to about 2 to 3 cm higher and then I was able to close about 3/4 of the incision but the lateral aspect of the stump is open and I placed a VAC there. DESCRIPTION OF PROCEDURE: The patient was brought to the operating room and placed on the table in supine position. The left leg was prepped and draped in the usual sterile fashion. It was vacced, so it was open. I then just proceeded with a 15 blade. I just cut away all of the necrotic remaining tendon, muscle and skin. There was kind of V-shaped piece of skin over the posterior flap because all the edges had necrosed but that was healthy and there was good bleeding from the skin edges. I cut again. I cut away all the muscle. There was still a fair amount of calf muscle that was viable and bleeding. I cut the tibia back up about 3 cm higher using the power saw, and I beveled the anterior edge to make sure there was a soft edge there. I then irrigated copiously with a pulse jet integrity manager to wash out any bacteria. There were no pockets of pus. There was no odor. It actually looked quite clean, like the infection has resolved. I was unable to bring most of the stump back together. In the medial aspect, I kind of rotated the posterior flap instead of bringing it directly anterior. I rotated it laterally and I then reapproximated the fascia layers with 2-0 Vicryl suture. I then used multiple interrupted 3-0 nylon vertical mattress sutures at the lateral aspect of the stump. Now, I had an opening about 3 cm long and about 2 cm in width. There was not enough skin to bring it together, but there was healthy muscle underneath. I put a VAC sponge there and then VAC it to close. I was actually happily surprised that there was more tissue viable than I thought there might be. I did not see any sign of any ongoing infection. We then transferred him back to the recovery room in stable condition. He tolerated the procedure well without any complications. Dictated By: AMARILIS DELGADO/WADE Conf#: [id number] DID#: [id number] CC: ANANYA BORGES DPM; KARLENE DANIEL MD; CLARE IRBY MD; ZAN BURKETT MD; KELECHI SWARTZ MD;*EndCC* MTDD
[2018-10-03] MEDS: metroNIDAZOLE 250 MG TAB PO SCH ×3 (05:44→21:26)
[2018-10-03] MEDS: LEVOFLOXACIN 500 MG TAB PO SCH (05:44)
--- NOTE | 2018-10-03 06:43 | OPPN ---
Date/Time of Note Date/Time of Note DATE: 10/03/18 TIME: 06:40 Anesthesia Follow up Anesthesia Follow up Last documented vital signs Vital Signs Date Temp Pulse Resp B/P (MAP) Pulse Ox O2 O2 Flow FiO2 Time Delivery Rate 10/03/18 99 04:00 10/03/18 98.6 18 113/69 98 04:00 (84) 10/02/18 Room Air 15:19 Respiratory function: WNL Cardiovascular function: WNL Comments A 58 year female s/p GA, spinal with duramorph POD#1 is doing fine. itching is controlled. No pain, N/V, headache, neural deficit. care per surgeon VALE KIRK MD Oct 03, 2018 06:43
--- NOTE | 2018-10-03 06:56 | CONS ---
Assessment/Plan Assessment/Plan Hospital Course (Demo Recall) New onset paroxysmal atrial fibrillation with RVR: EF preserved. CHADSVASC 2 for HTN and PAD so should be anticoagulated if ok with surgery. 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 Consultation Date/Type/Reason Admit Date/Time September 13, 2018 at 11:48 Initial Consult Date 09/20/18 Type of Consult Cardiology Requesting Provider: DOMINIQUE BURGESS NP Date/Time of Note DATE: 10/03/18 TIME: 06:55 24 HR Interval Summary Free Text/Dictation s/p debridement and revision of stump. No issues Exam/Review of Systems Vital Signs Vitals Vital Signs Date Temp Pulse Resp B/P (MAP) Pulse Ox O2 O2 Flow FiO2 Time Delivery Rate 10/03/18 99 04:00 10/03/18 98.6 18 113/69 98 04:00 (84) 10/02/18 Room Air 15:19 Intake and Output 10/02/18 10/02/18 10/03/18 1515:00 23:00 07:00 IntakeIntake Total 550 ml 563 ml OutputOutput Total 20 ml BalanceBalance 530 ml 563 ml Exam Constitutional: alert, oriented Psych: no complaints, nl mood/affect Head: normocephalic, atraumatic Neck: No jvd Respiratory: clear to auscultation; No crackles/rales Cardiovascular: regular rate and rhythm; No edema Gastrointestinal: soft, non-tender; No distended Musculoskeletal: No nl extremities to inspection 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: nl mental status, nl speech Labs Result Diagram: 10/03/18 0532 10/02/18 0943 Results 24hrs Laboratory Tests Test 10/02/18 09:43 10/03/18 05:32 White Blood Count 8.3 8.6 Red Blood Count 3.51 L 3.12 L Hemoglobin 9.6 L 8.7 L Hematocrit 31.7 L 28.1 L Mean Corpuscular Volume 90.3 90.1 Mean Corpuscular Hemoglobin 27.4 L 27.9 L Mean Corpuscular Hemoglobin Concent 30.3 L 31.0 L Red Cell Distribution Width 21.3 H 21.5 H Platelet Count 214 153 # Mean Platelet Volume 9.9 11.3 H Immature Granulocytes % 1.600 H 1.200 H Neutrophils % 72.1 70.7 Lymphocytes % 11.0 L 10.2 L Monocytes % 11.2 H 14.3 H Eosinophils % 3.3 2.9 Basophils % 0.8 0.7 Nucleated Red Blood Cells % 0.0 0.0 Immature Granulocytes # 0.130 H 0.100 H Neutrophils # 6.0 6.1 Lymphocytes # 0.9 0.9 Monocytes # 0.9 1.2 H Eosinophils # 0.3 0.3 Basophils # 0.1 0.1 Nucleated Red Blood Cells # 0.0 0.0 Sodium Level 143 Potassium Level 4.5 Chloride Level 113 H Carbon Dioxide Level 22 Anion Gap 8 Blood Urea Nitrogen 12 Creatinine 1.08 Est Glomerular Filtrat Rate mL/min > 60 Glucose Level 82 Calcium Level 8.8 Phosphorus Level 2.8 Magnesium Level 1.4 L Medications Medications Current Medications Miscellaneous Information (* Miscellaneous Pharmacy Order) DURAMORPH: 0.2 MG SPI... GIVEN NEURAXIAL XX ; Start 09/13/18 at 16:30 IV Flush (NS 3 ml) 3 ml PER PROTOCOL IV ; Start 09/13/18 at 17:00 Acetaminophen (Tylenol Supp) 650 mg Q6H PRN [place] Fever; Start 09/13/18 at 17:00 Ondansetron HCl (Zofran Inj) 4 mg Q4H PRN IV NAUSEA AND/OR VOMITING; Start 09/13/18 at 17:00 Folic Acid (Folic Acid) 1 mg DAILY PO Last administered on 10/02/18at 08:11; Admin Dose 1 MG; Start 09/14/18 at 09:00 Multivit/Ca Carb/ B Cmplx/FA/Prenat (Flor-Elisa) 1 tab DAILY PO Last administered on 10/02/18at 08:12; Admin Dose 1 TAB; Start 09/14/18 at 09:00 Sodium Phosphate (Kphos Neutral) 1,000 mg BID PO Last administered on 10/02/18at 20:21; Admin Dose 1,000 MG; Start 09/13/18 at 21:00 Hydromorphone HCl (Dilaudid) 1 mg Q4H PRN IV SEVERE PAIN LEVEL 7-10 Last administered on 10/03/18 00:11; Admin Dose 1 MG; Start 09/13/18 at 17:30 Leflunomide (Arava) 20 mg DAILY PO Last administered on 10/02/18 08:11; Admin Dose 20 MG; Start 09/14/18 at 09:00 Acetaminophen (Tylenol Tab) 650 mg Q6H PRN PO MILD PAIN(1-3)OR ELEVATED TEMP Last administered on 09/17/18 20:44; Admin Dose 650 MG; Start 09/17/18 at 17:00 Enoxaparin Sodium (Lovenox) 40 mg DAILY SC Last administered on 10/01/18 09:41; Admin Dose 40 MG; Start 09/19/18 at 09:00; Status Hold Diltiazem HCl (Cardizem Cd) 180 mg DAILY PO Last administered on 10/02/18 08:13; Admin Dose 180 MG; Start 09/23/18 at 09:00 Potassium Chloride (Klor-Con 10) 20 meq BID PO Last administered on 10/02/18 20:22; Admin Dose 20 MEQ; Start 09/23/18 at 09:00 Famotidine (Pepcid) 20 mg BID PO Last administered on 10/02/18 20:23; Admin Dose 20 MG; Start 09/23/18 at 21:00 Levofloxacin (Levaquin) 500 mg DAILY@06 PO Last administered on 10/03/18 05:44; Admin Dose 500 MG; Start 09/25/18 at 06:00 Amiodarone HCl (Cordarone) 200 mg DAILY PO Last administered on 10/02/18 08:13; Admin Dose 200 MG; Start 09/26/18 at 10:00 Magnesium Oxide (Mag-Ox 400) 1,200 mg TID PO Last administered on 10/02/18 20:22; Admin Dose 1,200 MG; Start 10/01/18 at 09:00 Metronidazole (Flagyl) 500 mg Q8 PO Last administered on 10/03/18 05:44; Admin Dose 500 MG; Start 10/02/18 at 08:00 Tacrolimus (Prograf) 1 mg BID PO Last administered on 10/02/18 20:22; Admin Dose 1 MG; Start 10/02/18 at 09:00 Amphotericin B Liposome 150 mg/ Dextrose 300 ml @ 200 mls/hr Q24H IVPB Last administered on 10/02/18at 17:59; Admin Dose 200 MLS/HR; Start 10/02/18 at 18:00 Diphenhydramine HCl (Benadryl) 50 mg Q24H PO Last administered on 10/02/18at 17:07; Admin Dose 50 MG; Start 10/02/18 at 17:30 YOLI HOROWITZ Oct 03, 2018 06:56
[2018-10-03] MEDS: MAGNESIUM OXIDE 400 MG TAB PO SCH ×3 (08:09→20:15)
[2018-10-03] MEDS: AMIODARONE 200 MG TAB PO SCH (08:09)
[2018-10-03] MEDS: LEFLUNOMIDE 20 MG TAB PO SCH (08:09)
[2018-10-03] MEDS: DILTIAZEM (CD) 180 MG CAP PO SCH (08:10)
[2018-10-03] MEDS: FAMOTIDINE 20 MG TAB PO SCH ×2 (08:10→20:14)
[2018-10-03] MEDS: FOLIC ACID 1 MG TAB PO SCH (08:10)
[2018-10-03] MEDS: POTASSIUM CHLORIDE (SR) 10 MEQ TAB PO SCH ×2 (08:10→20:15)
[2018-10-03] MEDS: MULTIVIT/CA CARB/B CMPLX/FA TAB PO SCH (08:11)
[2018-10-03] MEDS: SOD PHOS MONO/DIBAS 250 MG TAB PO SCH ×2 (08:11→20:14)
[2018-10-03] MEDS: TACROLIMUS 1 MG CAP PO SCH ×2 (08:11→20:14)
[2018-10-03] MEDS ORDERED: MAGNESIUM SULFATE 2 GM/50 ML 50 ML IVPB ONE (08:30)
--- NOTE | 2018-10-03 08:31 | CONS ---
Assessment/Plan Assessment/Plan Hospital Course (Demo Recall) 1. Kidney transplant status. The patient had a cadaveric kidney transplant in 2006. He is on immunosuppressive therapy. His renal function has been stable. I may need to adjust his immunosuppressive therapy in view of the poor wound healing and continued infection of the left leg stump. 2. He is now 20 days postop a left below the knee amputation. His left foot was infected and gangrenous. He now has a L stump that is draining dark bloody purulent material . He underwent a third surgery yesterday. The left stump wound was opened, drained, debrided and washed out. Dr. Cortes was unable to close the wound. He still has a drain going to a wound VAC. 3. Hypertension 4. Peripheral artery disease 5. Anemia , is improving 6. Hyperlipidemia. 7. Hypomagnesemia, I suspect he is loosing magnesium through kidney . I have started him on an oral magnesium supplement and I have had to increase the dose because of continued low serum magnesium level. I will give him a dose of IV magnesium today because of the low serum magnesium. 8. Hypokalemia. Potassium is back to normal. I have increased his potassium supplements. I will order labs for tomorrow. Consultation Date/Type/Reason Admit Date/Time September 13, 2018 at 11:48 Initial Consult Date 09/13/18 Type of Consult Nephrology Requesting Provider: DOMINIQUE BURGESS NP Date/Time of Note DATE: 10/03/18 TIME: 08:26 24 HR Interval Summary Free Text/Dictation Patient is now 1 day postop a debridement and cleanout procedure of his left leg BKA stump. He is awake and alert. He has no new complaints. He has a drain and wound VAC on the wound. Constitutional: no complaints Exam/Review of Systems Exam Vitals Vital Signs Date Temp Pulse Resp B/P (MAP) Pulse Ox O2 O2 Flow FiO2 Time Delivery Rate 10/03/18 68 08:08 10/03/18 98.0 22 128/57 96 Room Air 07:43 (80) Intake and Output 10/02/18 10/02/18 10/03/18 1515:00 23:00 07:00 IntakeIntake Total 550 ml 563 ml OutputOutput Total 20 ml BalanceBalance 530 ml 563 ml Exam The left leg is status post BK amputation with drainage tube and to wound VAC. Constitutional: alert, oriented, frail Respiratory: clear to auscultation, diminished breath sounds Cardiovascular: regular rate and rhythm Gastrointestinal: soft Results Result Diagram: 10/03/18 0532 10/02/18 0943 Results 24hrs Laboratory Tests Test 10/02/18 09:43 10/03/18 05:32 White Blood Count 8.3 8.6 Red Blood Count 3.51 L 3.12 L Hemoglobin 9.6 L 8.7 L Hematocrit 31.7 L 28.1 L Mean Corpuscular Volume 90.3 90.1 Mean Corpuscular Hemoglobin 27.4 L 27.9 L Mean Corpuscular Hemoglobin Concent 30.3 L 31.0 L Red Cell Distribution Width 21.3 H 21.5 H Platelet Count 214 153 # Mean Platelet Volume 9.9 11.3 H Immature Granulocytes % 1.600 H 1.200 H Neutrophils % 72.1 70.7 Lymphocytes % 11.0 L 10.2 L Monocytes % 11.2 H 14.3 H Eosinophils % 3.3 2.9 Basophils % 0.8 0.7 Nucleated Red Blood Cells % 0.0 0.0 Immature Granulocytes # 0.130 H 0.100 H Neutrophils # 6.0 6.1 Lymphocytes # 0.9 0.9 Monocytes # 0.9 1.2 H Eosinophils # 0.3 0.3 Basophils # 0.1 0.1 Nucleated Red Blood Cells # 0.0 0.0 Sodium Level 143 Potassium Level 4.5 Chloride Level 113 H Carbon Dioxide Level 22 Anion Gap 8 Blood Urea Nitrogen 12 Creatinine 1.08 Est Glomerular Filtrat Rate mL/min > 60 Glucose Level 82 Calcium Level 8.8 Phosphorus Level 2.8 Magnesium Level 1.4 L Medications Medication Current Medications Miscellaneous Information (* Miscellaneous Pharmacy Order) DURAMORPH: 0.2 MG SPI... GIVEN NEURAXIAL XX ; Start 09/13/18 at 16:30 IV Flush (NS 3 ml) 3 ml PER PROTOCOL IV ; Start 09/13/18 at 17:00 Acetaminophen (Tylenol Supp) 650 mg Q6H PRN [place] Fever; Start 09/13/18 at 17:00 Ondansetron HCl (Zofran Inj) 4 mg Q4H PRN IV NAUSEA AND/OR VOMITING; Start at 17:00 Folic Acid (Folic Acid) 1 mg DAILY PO Last administered on 10/03/18 08:10; Admin Dose 1 MG; Start 09/14/18 at 09:00 Multivit/Ca Carb/ B Cmplx/FA/Prenat (Flor-Elisa) 1 tab DAILY PO Last administered on 10/03/18 08:11; Admin Dose 1 TAB; Start 09/14/18 at 09:00 Sodium Phosphate (Kphos Neutral) 1,000 mg BID PO Last administered on 10/03/18 08:11; Admin Dose 1,000 MG; Start 09/13/18 at 21:00 Hydromorphone HCl (Dilaudid) 1 mg Q4H PRN IV SEVERE PAIN LEVEL 7-10 Last administered on 10/03/18 00:11; Admin Dose 1 MG; Start 09/13/18 at 17:30 Leflunomide (Arava) 20 mg DAILY PO Last administered on 10/03/18 08:09; Admin Dose 20 MG; Start 09/14/18 at 09:00 Acetaminophen (Tylenol Tab) 650 mg Q6H PRN PO MILD PAIN(1-3)OR ELEVATED TEMP Last administered on 09/17/18 20:44; Admin Dose 650 MG; Start 09/17/18 at 17:00 Enoxaparin Sodium (Lovenox) 40 mg DAILY SC Last administered on 10/01/18 09:41; Admin Dose 40 MG; Start 09/19/18 at 09:00; Status Hold Diltiazem HCl (Cardizem Cd) 180 mg DAILY PO Last administered on 10/03/18 08:10; Admin Dose 180 MG; Start 09/23/18 at 09:00 Potassium Chloride (Klor-Con 10) 20 meq BID PO Last administered on 10/03/18 08:10; Admin Dose 20 MEQ; Start 09/23/18 at 09:00 Famotidine (Pepcid) 20 mg BID PO Last administered on 10/03/18 08:10; Admin Do se 20 MG; Start 09/23/18 at 21:00 Levofloxacin (Levaquin) 500 mg DAILY@06 PO Last administered on 10/03/18 05:44; Admin Dose 500 MG; Start 09/25/18 at 06:00 Amiodarone HCl (Cordarone) 200 mg DAILY PO Last administered on 10/03/18 08:09; Admin Dose 200 MG; Start 09/26/18 at 10:00 Magnesium Oxide (Mag-Ox 400) 1,200 mg TID PO Last administered on 10/03/18 08:09; Admin Dose 1,200 MG; Start 10/01/18 at 09:00 Metronidazole (Flagyl) 500 mg Q8 PO Last administered on 10/03/18 05:44; Admin Dose 500 MG; Start 10/02/18 at 08:00 Tacrolimus (Prograf) 1 mg BID PO Last administered on 10/03/18 08:11; Admin Dose 1 MG; Start 10/02/18 at 09:00 Amphotericin B Liposome 150 mg/ Dextrose 300 ml @ 200 mls/hr Q24H IVPB Last administered on 10/02/18 17:59; Admin Dose 200 MLS/HR; Start 10/02/18 at 18:00 Diphenhydramine HCl (Benadryl) 50 mg Q24H PO Last administered on 10/02/18 17:07; Admin Dose 50 MG; Start 10/02/18 at 17:30 Magnesium Sulfate 50 ml @ 25 mls/hr ONCE ONCE IVPB ; Start 10/03/18 at 08:30; Stop 10/03/18 at 10:29 ERIN MONTOYA MD Oct 03, 2018 08:31
[2018-10-03] MEDS: CALCITRIOL 0.25 MCG CAP PO SCH (08:52)
--- NOTE | 2018-10-03 12:53 | PN ---
Date/Time of Note Date/Time of Note DATE: 10/03/18 TIME: 12:51 Assessment/Plan VTE Prophylaxis Risk score (from Ns)>0 risk: 7 SCD applied (from Ns): Yes Pharmacological prophylaxis: NA/contraindicated Pharm contraindication: surgical contra Lines/Catheters [facility] Peripheral IV Urinary Cath still in place: No Assessment/Plan Assessment/Plan 1. Severe left peripheral artery disease with infected left TMA stump- stable - Vascular consultation appreciated. s/p Urgent left below-knee amputation on 09/13/2018 with washout. Further revision on 10/02. - Will hold Lovenox dose - Antibiotics as per ID 2. SVT secondary to A. fib with RVR - Noted with some episodes of HR in the 150s on telemonitor - Cardiology on board and appreciate recommendations. Continue on amiodarone until 10/20, 1 month tx. continue on diltiazem - Once cleared by Surgeon, will start NOAC for afib. Will have revision of stump next week so hold off for now 3. Sepsis with leukocytosis, febrile illness, and lactic acidosis secondary to lower extremity infection- resolving - remains afebrile and nl WBC - wound culture results noted - ID on board for antibiotic recommendations 4. Peripheral vascular disease. - Continue statins 5. History of renal transplant. - nephrology on board and appreciate recommendations. Cr improving - avoiding nephrotoxic agents - continue immunosuppressants 6. Normocytic anemia - stable - no need for transfusions at this time 7. HLD - on statin 8. HypoMg - replacing 9. Disposition - s/p BKA, will plan for ARU eval. Result Diagram: 10/03/18 0532 10/03/18 0532 Subjective 24 Hr Interval Summary Free Text/Dictation Patient doing well postoperatively. Good appetite. Worked with physical therapy. Exam/Review of Systems Exam Vitals Vital Signs Date Temp Pulse Resp B/P (MAP) Pulse Ox O2 O2 Flow FiO2 Time Delivery Rate 10/03/18 105 12:11 10/03/18 98.0 22 139/63 96 Room Air 11:29 (88) Intake and Output 10/02/18 10/02/18 10/03/18 1515:00 23:00 07:00 IntakeIntake Total 550 ml 1363 ml OutputOutput Total 20 ml BalanceBalance 530 ml 1363 ml Exam General: Pleasant man in no acute distress. answering questions appropriately CVS: S1, S2, regular rhythm, tachycardia. no murmurs Lungs: clear to auscultation bilaterally. no wheezing or rhonchi Abd: soft, nontender, nondistended. no rebound or guarding. bowel sounds present diffusely Ext: L BKA. no cyanosis, clubbing, or edema Skin: warm, dry. LLE dressing intact Results Results 24hrs Laboratory Tests Test 10/03/18 05:32 10/03/18 10:52 White Blood Count 8.6 Red Blood Count 3.12 L Hemoglobin 8.7 L Hematocrit 28.1 L Mean Corpuscular Volume 90.1 Mean Corpuscular Hemoglobin 27.9 L Mean Corpuscular Hemoglobin Concent 31.0 L Red Cell Distribution Width 21.5 H Platelet Count 153 # Mean Platelet Volume 11.3 H Immature Granulocytes % 1.200 H Neutrophils % 70.7 Lymphocytes % 10.2 L Monocytes % 14.3 H Eosinophils % 2.9 Basophils % 0.7 Nucleated Red Blood Cells % 0.0 Immature Granulocytes # 0.100 H Neutrophils # 6.1 Lymphocytes # 0.9 Monocytes # 1.2 H Eosinophils # 0.3 Basophils # 0.1 Nucleated Red Blood Cells # 0.0 Sodium Level 141 Potassium Level 4.9 Chloride Level 115 H Carbon Dioxide Level 19 L Anion Gap 7 Blood Urea Nitrogen 14 Creatinine 1.19 Est Glomerular Filtrat Rate mL/min > 60 Glucose Level 74 Calcium Level 9.1 Phosphorus Level 3.2 Magnesium Level 1.5 L Total Bilirubin 0.3 Direct Bilirubin 0.00 Indirect Bilirubin 0.3 Aspartate Amino Transf (AST/SGOT) 46 Alanine Aminotransferase (ALT/SGPT) 34 Alkaline Phosphatase 84 Total Protein 6.0 L Albumin 2.7 L Globulin 3.30 H Albumin/Globulin Ratio 0.81 Iron Level 32 L Total Iron Binding Capacity 154 L Percent Iron Saturation 21 L Medications Medication Current Medications Miscellaneous Information (* Miscellaneous Pharmacy Order) DURAMORPH: 0.2 MG SPI... GIVEN NEURAXIAL XX ; Start 09/13/18 at 16:30 IV Flush (NS 3 ml) 3 ml PER PROTOCOL IV ; Start 09/13/18 at 17:00 Acetaminophen (Tylenol Supp) 650 mg Q6H PRN [place] Fever; Start 09/13/18 at 17:00 Ondansetron HCl (Zofran Inj) 4 mg Q4H PRN IV NAUSEA AND/OR VOMITING; Start 09/13/18 at 17:00 Folic Acid (Folic Acid) 1 mg DAILY PO Last administered on 10/03/18 08:10; Admin Dose 1 MG; Start 09/14/18 at 09:00 Multivit/Ca Carb/ B Cmplx/FA/Prenat (Flor-Elisa) 1 tab DAILY PO Last administered on 10/03/18 08:11; Admin Dose 1 TAB; Start 09/14/18 at 09:00 Sodium Phosphate (Kphos Neutral) 1,000 mg BID PO Last administered on 10/03/18 08:11; Admin Dose 1,000 MG; Start 09/13/18 at 21:00 Hydromorphone HCl (Dilaudid) 1 mg Q4H PRN IV SEVERE PAIN LEVEL 7-10 Last administered on 10/03/18 00:11; Admin Dose 1 MG; Start 09/13/18 at 17:30 Leflunomide (Arava) 20 mg DAILY PO Last administered on 10/03/18 08:09; Admin Dose 20 MG; Start 09/14/18 at 09:00 Acetaminophen (Tylenol Tab) 650 mg Q6H PRN PO MILD PAIN(1-3)OR ELEVATED TEMP Last administered on 09/17/18 20:44; Admin Dose 650 MG; Start 09/17/18 at 17:00 Enoxaparin Sodium (Lovenox) 40 mg DAILY SC Last administered on 10/01/18 09:41; Admin Dose 40 MG; Start 09/19/18 at 09:00; Status Hold Diltiazem HCl (Cardizem Cd) 180 mg DAILY PO Last administered on 10/03/18 08:10; Admin Dose 180 MG; Start 09/23/18 at 09:00 Potassium Chloride (Klor-Con 10) 20 meq BID PO Last administered on 10/03/18 08:10; Admin Dose 20 MEQ; Start 09/23/18 at 09:00 Famotidine (Pepcid) 20 mg BID PO Last administered on 10/03/18 08:10; Admin Dose 20 MG; Start 09/23/18 at 21:00 Levofloxacin (Levaquin) 500 mg DAILY@06 PO Last administered on 10/03/18 05:44; Admin Dose 500 MG; Start 09/25/18 at 06:00 Amiodarone HCl (Cordarone) 200 mg DAILY PO Last administered on 10/03/18 08:09 ; Admin Dose 200 MG; Start 09/26/18 at 10:00 Magnesium Oxide (Mag-Ox 400) 1,200 mg TID PO Last administered on 10/03/18 08:09; Admin Dose 1,200 MG; Start 10/01/18 at 09:00 Metronidazole (Flagyl) 500 mg Q8 PO Last administered on 10/03/18 05:44; Admin Dose 500 MG; Start 10/02/18 at 08:00 Tacrolimus (Prograf) 1 mg BID PO Last administered on 10/03/18 08:11; Admin Dose 1 MG; Start 10/02/18 at 09:00 Amphotericin B Liposome 150 mg/ Dextrose 300 ml @ 200 mls/hr Q24H IVPB Last administered on 10/02/18 17:59; Admin Dose 200 MLS/HR; Start 10/02/18 at 18:00 Diphenhydramine HCl (Benadryl) 50 mg Q24H PO Last administered on 10/02/18 17:07; Admin Dose 50 MG; Start 10/02/18 at 17:30 Calcitriol (Rocaltrol) 0.25 mcg DAILY PO Last administered on 10/03/18 08:52; Admin Dose 0.25 MCG; Start 10/03/18 at 09:00 AMARILIS MIRELES MD Oct 03, 2018 12:53
--- NOTE | 2018-10-03 13:39 | QN ---
Documentation Comment No c/o. AFVSS L BKA stump - VAC in place, good seal, no bleeding - VAC change tomorrow and 3x/week AMARILIS RIBERA MD Oct 03, 2018 13:39
[2018-10-03] MEDS: DIPHENHYDRAMINE 50 MG CAP PO SCH (16:38)
[2018-10-03] MEDS: DEXTROSE 5% IVPB SCH (17:37)
[2018-10-03] MEDS: AMPHOTERICIN B LIPOSOME IVPB SCH (17:37)
--- NOTE | 2018-10-03 21:39 | CONS ---
Assessment/Plan Assessment/Plan Hospital Course (Demo Recall) # sepsis, muskuloskeletal, derm - s/p sepsis due infected left BKA stump - infected L BKA stump site - s/p further revision of L BKA site and wound vac placement on 10/02/2018 - s/p exploration and washout, debridement and VAC placement left infected below knee amputation stump on 09/19/2018; Wound culture grew Bacteroides Fragilis on 09/18/2018; Intraop culture grew coag neg staph and Bacteroides Fragilis on 09/19/18. CoNS is a likely colonizer; Fungal culture 09/19/18 grew A. versicolor group, submitted reference lab for sensitivity; path negative for malignancy - s/p L BKA on 09/13/2018 - h/o draining wound, necrosis and infection of L TMA site. ESR 121 on 09/12/2018. # renal, cardiac - h/o renal transplant at [facility] in 2006, maintained on tacrolimus - immunocompromised status - hypomagnesemia - repleted - A fib with RVR, converted to SR - hypertension # other conditions - expected post-op anemia - transaminitis - improving - adverse reaction to cefazolin (hives), meropenem (pruritus) Pt previously took aztreonam (09/13/2018-09/24/2018) recommendations: - the fungal culture from 09/19/2018 grew A. 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 [facility] does not have an inhouse assay for tacrolimus level and so tacrolimus cannot be dosed in a timely manner. This is a safety concern. So I ordered Ambisome instead of voriconazole for this Pt management d/w Pt and his RN Wilber. Discussed with Dr. Cortes yesterday Consultation Date/Type/Reason Admit Date/Time September 13, 2018 at 11:48 Initial Consult Date 09/13/18 Type of Consult ID Requesting Provider: DOMINIQUE BURGESS NP Date/Time of Note DATE: 10/03/18 TIME: 21:37 24 HR Interval Summary Constitutional: improved Detailed Summary Eyes: no complaints ENT: no complaints Respiratory: no complaints Cardiovascular: no complaints Gastrointestinal: no complaints Genitourinary: no complaints Musculoskeletal: restricted range of motion, other (s/p L BKA wound closure w ith wound VAC) Neurologic: no complaints Lymphatic: No lymphadema Exam/Review of Systems Exam Vitals Vital Signs Date Temp Pulse Resp B/P (MAP) Pulse Ox O2 O2 Flow FiO2 Time Delivery Rate 10/03/18 102 20:00 10/03/18 98.1 20 139/87 96 19:46 (104) 10/03/18 Room Air 16:06 Intake and Output 10/02/18 10/02/18 10/03/18 1515:00 23:00 07:00 IntakeIntake Total 550 ml 1363 ml OutputOutput Total 20 ml BalanceBalance 530 ml 1363 ml Constitutional: alert, oriented, well developed Psych: no complaints, nl mood/affect Head: normocephalic, atraumatic Eyes: nl conjunctiva, nl lids, nl sclera ENMT: nl external ears & nose, nl nasal mucosa & septum, mucosa pink and moist Neck: supple Respiratory: normal air movement Cardiovascular: No edema Gastrointestinal: No distended Musculoskeletal: other (s/p L BKA with wound vac) 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: [employer] II-XII intact, nl mental status, nl speech Results Result Diagram: 10/03/18 0532 10/03/18 0532 Results 24hrs Laboratory Tests Test 10/03/18 05:32 10/03/18 10:52 White Blood Count 8.6 Red Blood Count 3.12 L Hemoglobin 8.7 L Hematocrit 28.1 L Mean Corpuscular Volume 90.1 Mean Corpuscular Hemoglobin 27.9 L Mean Corpuscular Hemoglobin Concent 31.0 L Red Cell Distribution Width 21.5 H Platelet Count 153 # Mean Platelet Volume 11.3 H Immature Granulocytes % 1.200 H Neutrophils % 70.7 Lymphocytes % 10.2 L Monocytes % 14.3 H Eosinophils % 2.9 Basophils % 0.7 Nucleated Red Blood Cells % 0.0 Immature Granulocytes # 0.100 H Neutrophils # 6.1 Lymphocytes # 0.9 Monocytes # 1.2 H Eosinophils # 0.3 Basophils # 0.1 Nucleated Red Blood Cells # 0.0 Sodium Level 141 Potassium Level 4.9 Chloride Level 115 H Carbon Dioxide Level 19 L Anion Gap 7 Blood Urea Nitrogen 14 Creatinine 1.19 Est Glomerular Filtrat Rate mL/min > 60 Glucose Level 74 Calcium Level 9.1 Phosphorus Level 3.2 Magnesium Level 1.5 L Total Bilirubin 0.3 Direct Bilirubin 0.00 Indirect Bilirubin 0.3 Aspartate Amino Transf (AST/SGOT) 46 Alanine Aminotransferase (ALT/SGPT) 34 Alkaline Phosphatase 84 Total Protein 6.0 L Albumin 2.7 L Globulin 3.30 H Albumin/Globulin Ratio 0.81 Iron Level 32 L Total Iron Binding Capacity 154 L Percent Iron Saturation 21 L Ferritin 506.0 H Medications Medication Current Medications Miscellaneous Information (* Miscellaneous Pharmacy Order) DURAMORPH: 0.2 MG SPI... GIVEN NEURAXIAL XX ; Start 09/13/18 at 16:30 IV Flush (NS 3 ml) 3 ml PER PROTOCOL IV ; Start 09/13/18 at 17:00 Acetaminophen (Tylenol Supp) 650 mg Q6H PRN [place] Fever; Start 09/13/18 at 17:00 Ondansetron HCl (Zofran Inj) 4 mg Q4H PRN IV NAUSEA AND/OR VOMITING; Start 09/13/18 at 17:00 Folic Acid (Folic Acid) 1 mg DAILY PO Last administered on 10/03/18at 08:10; Admin Dose 1 MG; Start 09/14/18 at 09:00 Multivit/Ca Carb/ B Cmplx/FA/Prenat (Flor-Elisa) 1 tab DAILY PO Last administered on 10/03/18at 08:11; Admin Dose 1 TAB; Start 09/14/18 at 09:00 Sodium Phosphate (Kphos Neutral) 1,000 mg BID PO Last administered on 10/03/18at 20:14; Admin Dose 1,000 MG; Start 09/13/18 at 21:00 Hydromorphone HCl (Dilaudid) 1 mg Q4H PRN IV SEVERE PAIN LEVEL 7-10 Last a dministered on 10/03/18at 00:11; Admin Dose 1 MG; Start 09/13/18 at 17:30 Leflunomide (Arava) 20 mg DAILY PO Last administered on 10/03/18 08:09; Admin Dose 20 MG; Start 09/14/18 at 09:00 Acetaminophen (Tylenol Tab) 650 mg Q6H PRN PO MILD PAIN(1-3)OR ELEVATED TEMP Last administered on 09/17/18 20:44; Admin Dose 650 MG; Start 09/17/18 at 17:00 Enoxaparin Sodium (Lovenox) 40 mg DAILY SC Last administered on 10/01/18 09:41; Admin Dose 40 MG; Start 09/19/18 at 09:00; Status Hold Diltiazem HCl (Cardizem Cd) 180 mg DAILY PO Last administered on 10/03/18 08:10; Admin Dose 180 MG; Start 09/23/18 at 09:00 Potassium Chloride (Klor-Con 10) 20 meq BID PO Last administered on 10/03/18 20:15; Admin Dose 20 MEQ; Start 09/23/18 at 09:00 Famotidine (Pepcid) 20 mg BID PO Last administered on 10/03/18 20:14; Admin Dose 20 MG; Start 09/23/18 at 21:00 Levofloxacin (Levaquin) 500 mg DAILY@06 PO Last administered on 10/03/18 05:44; Admin Dose 500 MG; Start 09/25/18 at 06:00 Amiodarone HCl (Cordarone) 200 mg DAILY PO Last administered on 10/03/18 08:09; Admin Dose 200 MG; Start 09/26/18 at 10:00 Magnesium Oxide (Mag-Ox 400) 1,200 mg TID PO Last administered on 10/03/18 20:15; Admin Dose 1,200 MG; Start 10/01/18 at 09:00 Metronidazole (Flagyl) 500 mg Q8 PO Last administered on 10/03/18 21:26; Admin Dose 500 MG; Start 10/02/18 at 08:00 Tacrolimus (Prograf) 1 mg BID PO Last administered on 10/03/18 20:14; Admin Dose 1 MG; Start 10/02/18 at 09:00 Amphotericin B Liposome 150 mg/ Dextrose 300 ml @ 200 mls/hr Q24H IVPB Last administered on 10/03/18 17:37; Admin Dose 200 MLS/HR; Start 10/02/18 at 18:00 Diphenhydramine HCl (Benadryl) 50 mg Q24H PO Last administered on 10/03/18at 16:38; Admin Dose 50 MG; Start 10/02/18 at 17:30 Calcitriol (Rocaltrol) 0.25 mcg DAILY PO Last administered on 10/03/18at 08:52; Admin Dose 0.25 MCG; Start 10/03/18 at 09:00 CLARE IRBY M.D. Oct 03, 2018 21:39
[2018-10-04] VITALS (14 sets, daily range): BP systolic 92–138; BP diastolic 58–79; PULSE 99–140; RESP 17–20
[2018-10-04] MEDS: metroNIDAZOLE 250 MG TAB PO SCH ×3 (05:08→21:01)
[2018-10-04] MEDS: LEVOFLOXACIN 500 MG TAB PO SCH (05:08)
--- NOTE | 2018-10-04 07:24 | CONS ---
Assessment/Plan Assessment/Plan Hospital Course (Demo Recall) New onset paroxysmal atrial fibrillation with RVR: EF preserved. CHADSVASC 2 for HTN and PAD so should be anticoagulated if ok with surgery. Remains in sinus after amiodarone s/p BKA 09/13/18: s/p debridement and revision of stump 10/03 Sepsis due to above Severe PAD HTN Renal transplantation 2006 -amiodarone 200mg daily x 1 month -diltiazem 180mg daily -when ok with surgery, anticoagulate with Eliquis 5 mg BID or Xarelto 20mg -ok for ARU Consultation Date/Type/Reason Admit Date/Time September 13, 2018 at 11:48 Initial Consult Date 09/20/18 Type of Consult Cardiology Requesting Provider: DOMINIQUE BURGESS NP Date/Time of Note DATE: 10/04/18 TIME: 07:23 24 HR Interval Summary Free Text/Dictation No events. No afib. Plan for transfer to ARU Exam/Review of Systems Vital Signs Vitals Vital Signs Date Temp Pulse Resp B/P (MAP) Pulse Ox O2 O2 Flow FiO2 Time Delivery Rate 10/04/18 97.9 99 20 111/72 96 Room Air 07:15 (85) Intake and Output 10/03/18 10/03/18 10/04/18 1515:00 23:00 07:00 IntakeIntake Total 350 ml 680 ml 50 ml OutputOutput Total 850 ml 1500 ml 1600 ml BalanceBalance -500 ml -820 ml -1550 ml Exam Constitutional: alert, oriented Psych: no complaints, nl mood/affect Head: normocephalic, atraumatic Neck: No jvd Respiratory: clear to auscultation; No crackles/rales Cardiovascular: regular rate and rhythm; No edema Gastrointestinal: soft, non-tender; No distended 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: nl mental status, nl speech Labs Result Diagram: 10/04/1818 10/04/18 0518 Results 24hrs Laboratory Tests Test 10/03/18 10:52 10/04/18 05:18 Iron Level 32 L Total Iron Binding Capacity 154 L Percent Iron Saturation 21 L Ferritin 506.0 H White Blood Count 8.3 Red Blood Count 3.47 L Hemoglobin 9.7 L Hematocrit 31.0 L Mean Corpuscular Volume 89.3 Mean Corpuscular Hemoglobin 28.0 L Mean Corpuscular Hemoglobin Concent 31.3 L Red Cell Distribution Width 21.6 H Platelet Count 195 # Mean Platelet Volume 10.6 H Immature Granulocytes % 1.000 H Neutrophils % 66.4 Lymphocytes % 10.3 L Monocytes % 18.2 H Eosinophils % 3.3 Basophils % 0.8 Nucleated Red Blood Cells % 0.0 Immature Granulocytes # 0.080 H Neutrophils # 5.5 Lymphocytes # 0.9 Monocytes # 1.5 H Eosinophils # 0.3 Basophils # 0.1 Nucleated Red Blood Cells # 0.0 Sodium Level 140 Potassium Level 4.3 Chloride Level 110 Carbon Dioxide Level 22 Anion Gap 8 Blood Urea Nitrogen 15 Creatinine 1.27 H Est Glomerular Filtrat Rate mL/min 58 L Glucose Level 93 Calcium Level 9.5 Phosphorus Level 3.2 Magnesium Level 1.8 Total Bilirubin 0.4 Direct Bilirubin 0.00 Indirect Bilirubin 0.4 Aspartate Amino Transf (AST/SGOT) 38 Alanine Aminotransferase (ALT/SGPT) 25 Alkaline Phosphatase 103 Total Protein 6.0 L Albumin 2.9 L Globulin 3.10 Albumin/Globulin Ratio 0.93 Medications Medications Current Medications Miscellaneous Information (* Miscellaneous Pharmacy Order) DURAMORPH: 0.2 MG SPI... GIVEN NEURAXIAL XX ; Start 09/13/18 at 16:30 IV Flush (NS 3 ml) 3 ml PER PROTOCOL IV ; Start 09/13/18 at 17:00 Acetaminophen (Tylenol Supp) 650 mg Q6H PRN [place] Fever; Start 09/13/18 at 17:00 Ondansetron HCl (Zofran Inj) 4 mg Q4H PRN IV NAUSEA AND/OR VOMITING; Start 09/13/18 at 17:00 Folic Acid (Folic Acid) 1 mg DAILY PO Last administered on 10/03/18at 08:10; Admin Dose 1 MG; Start 09/14/18 at 09:00 Multivit/Ca Carb/ B Cmplx/FA/Prenat (Flor-Elisa) 1 tab DAILY PO Last administered on 10/03/18at 08:11; Admin Dose 1 TAB; Start 09/14/18 at 09:00 Sodium Phosphate (Kphos Neutral) 1,000 mg BID PO Last administered on 10/03/18at 20:14; Admin Dose 1,000 MG; Start 09/13/18 at 21:00 Hydromorphone HCl (Dilaudid) 1 mg Q4H PRN IV SEVERE PAIN LEVEL 7-10 Last administered on 10/03/18 00:11; Admin Dose 1 MG; Start 09/13/18 at 17:30 Leflunomide (Arava) 20 mg DAILY PO Last administered on 10/03/18 08:09; Admin Dose 20 MG; Start 09/14/18 at 09:00 Acetaminophen (Tylenol Tab) 650 mg Q6H PRN PO MILD PAIN(1-3)OR ELEVATED TEMP Last administered on 09/17/18 20:44; Admin Dose 650 MG; Start 09/17/18 at 17:00 Enoxaparin Sodium (Lovenox) 40 mg DAILY SC Last administered on 10/01/18 09:41; Admin Dose 40 MG; Start 09/19/18 at 09:00; Status Hold Diltiazem HCl (Cardizem Cd) 180 mg DAILY PO Last administered on 10/03/18 08:10; Admin Dose 180 MG; Start 09/23/18 at 09:00 Potassium Chloride (Klor-Con 10) 20 meq BID PO Last administered on 10/03/18 20:15; Admin Dose 20 MEQ; Start 09/23/18 at 09:00 Famotidine (Pepcid) 20 mg BID PO Last administered on 10/03/18 20:14; Admin Dose 20 MG; Start 09/23/18 at 21:00 Levofloxacin (Levaquin) 500 mg DAILY@06 PO Last administered on 10/04/18 05:08; Admin Dose 500 MG; Start 09/25/18 at 06:00; Stop 10/04/18 at 23:59 Amiodarone HCl (Cordarone) 200 mg DAILY PO Last administered on 10/03/18 08:09; Admin Dose 200 MG; Start 09/26/18 at 10:00 Magnesium Oxide (Mag-Ox 400) 1,200 mg TID PO Last administered on 10/03/18 20:15; Admin Dose 1,200 MG; Start 10/01/18 at 09:00 Metronidazole (Flagyl) 500 mg Q8 PO Last administered on 10/04/18 05:08; Admin Dose 500 MG; Start 10/02/18 at 08:00; Stop 10/04/18 at 23:59 Tacrolimus (Prograf) 1 mg BID PO Last administered on 10/03/18 20:14; Admin Dose 1 MG; Start 10/02/18 at 09:00 Amphotericin B Liposome 150 mg/ Dextrose 300 ml @ 200 mls/hr Q24H IVPB Last administered on 10/03/18 17:37; Admin Dose 200 MLS/HR; Start 10/02/18 at 18:00 Diphenhydramine HCl (Benadryl) 50 mg Q24H PO Last administered on 10/03/18 16:38; Admin Dose 50 MG; Start 10/02/18 at 17:30 Calcitriol (Rocaltrol) 0.25 mcg DAILY PO Last administered on 10/03/18 08:52; Admin Dose 0.25 MCG; Start 10/03/18 at 09:00 YOLI HOROWITZ Oct 04, 2018 07:24
[2018-10-04] MEDS: CALCITRIOL 0.25 MCG CAP PO SCH (08:09)
[2018-10-04] MEDS: MULTIVIT/CA CARB/B CMPLX/FA TAB PO SCH (08:10)
[2018-10-04] MEDS: FAMOTIDINE 20 MG TAB PO SCH ×2 (08:10→20:47)
[2018-10-04] MEDS: SOD PHOS MONO/DIBAS 250 MG TAB PO SCH ×2 (08:10→20:46)
[2018-10-04] MEDS: MAGNESIUM OXIDE 400 MG TAB PO SCH ×3 (08:10→20:45)
[2018-10-04] MEDS: LEFLUNOMIDE 20 MG TAB PO SCH (08:11)
[2018-10-04] MEDS: DILTIAZEM (CD) 180 MG CAP PO SCH (08:11)
[2018-10-04] MEDS: TACROLIMUS 1 MG CAP PO SCH (08:11)
[2018-10-04] MEDS: POTASSIUM CHLORIDE (SR) 10 MEQ TAB PO SCH ×2 (08:11→20:46)
[2018-10-04] MEDS: AMIODARONE 200 MG TAB PO SCH ×2 (08:11→20:45)
[2018-10-04] MEDS: FOLIC ACID 1 MG TAB PO SCH (08:11)
[2018-10-04] MEDS ORDERED: DILTIAZEM 60 MG TAB PO ONE (09:30)
[2018-10-04] MEDS ORDERED: ENOXAPARIN 40 MG/0.4 ML SYG SC SCH (10:00)
--- NOTE | 2018-10-04 10:57 | PN ---
Date/Time of Note Date/Time of Note DATE: 10/04/18 TIME: 10:55 Assessment/Plan VTE Prophylaxis Risk score (from Ns)>0 risk: 6 SCD applied (from Ns): Yes Pharmacological prophylaxis: apixaban Lines/Catheters IV [facility]from [facility]): Peripheral IV Urinary Cath still in place: No Assessment/Plan Assessment/Plan 1. Severe left peripheral artery disease with infected left TMA stump- stable - Vascular consultation appreciated. s/p Urgent left below-knee amputation on 09/13/2018 with washout. Further revision on 10/02. - Will restart Eliquis today. Watch closely for clinically significant bleed. - Antibiotics as per ID 2. SVT secondary to A. fib with RVR - Noted with some episodes of HR in the 150s on telemonitor - Cardiology on board and appreciate recommendations. Continue on amiodarone until 10/20, 1 month tx. continue on diltiazem - Will resume Eliquis today. 3. Sepsis with leukocytosis, febrile illness, and lactic acidosis secondary to lower extremity infection- resolving - remains afebrile and nl WBC - wound culture results noted - ID on board for antibiotic recommendations 4. Peripheral vascular disease. - Continue statins 5. History of renal transplant. - nephrology on board and appreciate recommendations. Cr improving - avoiding nephrotoxic agents - continue immunosuppressants 6. Normocytic anemia - stable - no need for transfusions at this time 7. HLD - on statin 8. HypoMg - replacing 9. Disposition - Accepted to ARU. Started Eliquis today. If not bleeding, can discharge to ARU. Result Diagram: 10/04/1818 10/04/18 0518 Subjective 24 Hr Interval Summary Free Text/Dictation No acute overnight events. Patient doing well. Performing wheelchair transfer and ambulating with walker. Exam/Review of Systems Exam Vitals Vital Signs Date Temp Pulse Resp B/P (MAP) Pulse Ox O2 O2 Flow FiO2 Time Delivery Rate 10/04/18 117 113/79 09:29 (90) 10/04/18 97.9 20 96 Room Air 07:15 Intake and Output 10/03/18 10/03/18 10/04/18 1414:59 22:59 06:59 IntakeIntake Total 350 ml 680 ml 50 ml OutputOutput Total 850 ml 1500 ml 1600 ml BalanceBalance -500 ml -820 ml -1550 ml Exam General: Pleasant man in no acute distress. answering questions appropriately CVS: S1, S2, regular rhythm, tachycardia. no murmurs Lungs: clear to auscultation bilaterally. no wheezing or rhonchi Abd: soft, nontender, nondistended. no rebound or guarding. bowel sounds present diffusely Ext: L BKA. no cyanosis, clubbing, or edema Skin: warm, dry. LLE dressing intact, wound vac to suction. Results Results 24hrs Laboratory Tests Test 10/04/18 05:18 White Blood Count 8.3 Red Blood Count 3.47 L Hemoglobin 9.7 L Hematocrit 31.0 L Mean Corpuscular Volume 89.3 Mean Corpuscular Hemoglobin 28.0 L Mean Corpuscular Hemoglobin Concent 31.3 L Red Cell Distribution Width 21.6 H Platelet Count 195 # Mean Platelet Volume 10.6 H Immature Granulocytes % 1.000 H Neutrophils % 66.4 Lymphocytes % 10.3 L Monocytes % 18.2 H Eosinophils % 3.3 Basophils % 0.8 Nucleated Red Blood Cells % 0.0 Immature Granulocytes # 0.080 H Neutrophils # 5.5 Lymphocytes # 0.9 Monocytes # 1.5 H Eosinophils # 0.3 Basophils # 0.1 Nucleated Red Blood Cells # 0.0 Sodium Level 140 Potassium Level 4.3 Chloride Level 110 Carbon Dioxide Level 22 Anion Gap 8 Blood Urea Nitrogen 15 Creatinine 1.27 H Est Glomerular Filtrat Rate mL/min 58 L Glucose Level 93 Calcium Level 9.5 Phosphorus Level 3.2 Magnesium Level 1.8 Total Bilirubin 0.4 Direct Bilirubin 0.00 Indirect Bilirubin 0.4 Aspartate Amino Transf (AST/SGOT) 38 Alanine Aminotransferase (ALT/SGPT) 25 Alkaline Phosphatase 103 Total Protein 6.0 L Albumin 2.9 L Globulin 3.10 Albumin/Globulin Ratio 0.93 Medications Medication Current Medications Miscellaneous Information (* Miscellaneous Pharmacy Order) DURAMORPH: 0.2 MG SPI... GIVEN NEURAXIAL XX ; Start 09/13/18 at 16:30 IV Flush (NS 3 ml) 3 ml PER PROTOCOL IV ; Start 09/13/18 at 17:00 Acetaminophen (Tylenol Supp) 650 mg Q6H PRN [place] Fever; Start 09/13/18 at 17:00 Ondansetron HCl (Zofran Inj) 4 mg Q4H PRN IV NAUSEA AND/OR VOMITING; Start 09/13/18 at 17:00 Folic Acid (Folic Acid) 1 mg DAILY PO Last administered on 10/04/18 08:11; Admin Dose 1 MG; Start 09/14/18 at 09:00 Multivit/Ca Carb/ B Cmplx/FA/Prenat (Flor-Elisa) 1 tab DAILY PO Last administered on 10/04/18 08:10; Admin Dose 1 TAB; Start 09/14/18 at 09:00 Sodium Phosphate (Kphos Neutral) 1,000 mg BID PO Last administered on 10/04/18 08:10; Admin Dose 1,000 MG; Start 09/13/18 at 21:00 Hydromorphone HCl (Dilaudid) 1 mg Q4H PRN IV SEVERE PAIN LEVEL 7-10 Last administered on 10/03/18 00:11; Admin Dose 1 MG; Start 09/13/18 at 17:30 Leflunomide (Arava) 20 mg DAILY PO Last administered on 10/04/18 08:11; Admin Dose 20 MG; Start 09/14/18 at 09:00 Acetaminophen (Tylenol Tab) 650 mg Q6H PRN PO MILD PAIN(1-3)OR ELEVATED TEMP Last administered on 09/17/18 20:44; Admin Dose 650 MG; Start 09/17/18 at 17:00 Potassium Chloride (Klor-Con 10) 20 meq BID PO Last administered on 10/04/18 08:11; Admin Dose 20 MEQ; Start 09/23/18 at 09:00 Famotidine (Pepcid) 20 mg BID PO Last administered on 10/04/18 08:10; Admin Dose 20 MG; Start 09/23/18 at 21:00 Levofloxacin (Levaquin) 500 mg DAILY@06 PO Last administered on 10/04/18 05:08; Admin Dose 500 MG; Start 09/25/18 at 06:00; Stop 10/04/18 at 23:59 Magnesium Oxide (Mag-Ox 400) 1,200 mg TID PO Last administered on 10/04/18 08:10; Admin Dose 1,200 MG; Start 10/01/18 at 09:00 Metronidazole (Flagyl) 500 mg Q8 PO Last administered on 6/21/19at 05:08; Admin Dose 500 MG; Start 10/02/18 at 08:00; Stop 10/04/18 at 23:59 Tacrolimus (Prograf) 1 mg BID PO Last administered on 10/04/18at 08:11; Admin Dose 1 MG; Start 10/02/18 at 09:00 Amphotericin B Liposome 150 mg/ Dextrose 300 ml @ 200 mls/hr Q24H IVPB Last administered on 10/03/18at 17:37; Admin Dose 200 MLS/HR; Start 10/02/18 at 18:00 Diphenhydramine HCl (Benadryl) 50 mg Q24H PO Last administered on 10/03/18at 16:38; Admin Dose 50 MG; Start 10/02/18 at 17:30 Calcitriol (Rocaltrol) 0.25 mcg DAILY PO Last administered on 10/04/18at 08:09; Admin Dose 0.25 MCG; Start 10/03/18 at 09:00 Amiodarone HCl (Cordarone) 200 mg BID PO ; Start 10/04/18 at 21:00 Diltiazem HCl (Cardizem Cd) 240 mg DAILY PO ; Start 10/05/18 at 09:00 Enoxaparin Sodium (Lovenox) 40 mg DAILY SC Last administered on 10/04/18at 10:17; Admin Dose 40 MG; Start 10/04/18 at 10:00 AMARILIS MIRELES MD Oct 04, 2018 10:57
[2018-10-04] MEDS: HYDROmorphONE 1 MG/ML SYG IV PRN (12:26)
--- NOTE | 2018-10-04 13:20 | CONS ---
Assessment/Plan Assessment/Plan Hospital Course (Demo Recall) # sepsis, muskuloskeletal, derm - s/p sepsis due infected left BKA stump - infected L BKA stump site - s/p further revision of L BKA site and wound vac placement on 10/02/2018 - s/p exploration and washout, debridement and VAC placement left infected below knee amputation stump on 09/19/2018; Wound culture grew Bacteroides Fragilis on 09/18/2018; Intraop culture grew coag neg staph and Bacteroides Fragilis on 09/19/18. CoNS is a likely colonizer; Fungal culture 09/19/18 grew A. versicolor group, submitted reference lab for sensitivity; path negative for malignancy - s/p L BKA on 09/13/2018 - h/o draining wound, necrosis and infection of L TMA site. ESR 121 on 09/12/2018. # renal, cardiac - h/o renal transplant at [facility] in 2006, maintained on tacrolimus - immunocompromised status - hypomagnesemia - repleted - A fib with RVR, converted to SR - hypertension # other conditions - expected post-op anemia - transaminitis - improving - adverse reaction to cefazolin (hives), meropenem (pruritus) Pt previously took aztreonam (09/13/2018-09/24/2018) recommendations: - the fungal culture from 09/19/2018 grew A. versicolor group, I requested its sensitivity on 10/02/2018 (Nena at micro lab) - will finish levofloxacin (09/17/2018-) and metronidazole (09/17/2018-) at the end of today (ordered) - Pt's aspergillus could be a colonizer of the wound; however, Pt's immunocompromised and I favor its treatment x 10 days: Ambisome (10/02/2018-) with premedication with PO benadryl and normal saline - the antifungal of choice for aspergillus is voriconazole, but it potently interacts with tacrolimus, and its level must be adjusted. [facility] does not have an inhouse assay for tacrolimus level and so tacrolimus cannot be dosed in a timely manner. This is a safety concern. So I ordered Ambisome instead of voriconazole for this Pt management d/w Pt Consultation Date/Type/Reason Admit Date/Time September 13, 2018 at 11:48 Initial Consult Date 09/13/18 Type of Consult ID Requesting Provider: DOMINIQUE BURGESS NP Date/Time of Note DATE: 10/04/18 TIME: 13:15 24 HR Interval Summary Constitutional: improved Detailed Summary Eyes: no complaints ENT: no complaints Respiratory: no complaints Cardiovascular: no complaints Gastrointestinal: no complaints Genitourinary: no complaints Musculoskeletal: restricted range of motion, other (no pain from BKA site) Skin: no complaints Neurologic: no complaints Exam/Review of Systems Exam Vitals Vital Signs Date Temp Pulse Resp B/P (MAP) Pulse Ox O2 O2 Flow FiO2 Time Delivery Rate 10/04/18 111 109/60 12:26 (76) 10/04/18 98.0 20 99 Room Air 11:03 Intake and Output 10/03/18 10/03/18 10/04/18 1515:00 23:00 07:00 IntakeIntake Total 350 ml 980 ml 50 ml OutputOutput Total 850 ml 1500 ml 1600 ml BalanceBalance -500 ml -520 ml -1550 ml Constitutional: alert, oriented, well developed Psych: no complaints, nl mood/affect Head: normocephalic, atraumatic Eyes: nl conjunctiva, nl lids, nl sclera ENMT: nl external ears & nose, nl nasal mucosa & septum Neck: supple Respiratory: clear to auscultation, normal air movement Cardiovascular: regular rate and rhythm, nl pulses, other (former AVG on b/l UEs) Gastrointestinal: soft, non-tender Musculoskeletal: other (s/p L BKA, wound VAC is in place. 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, nl mental status, nl speech Skin: nl turgor; No rash or lesions Results Result Diagram: 10/04/1818 10/04/18 0518 Results 24hrs Laboratory Tests Test 10/04/18 05:18 White Blood Count 8.3 Red Blood Count 3.47 L Hemoglobin 9.7 L Hematocrit 31.0 L Mean Corpuscular Volume 89.3 Mean Corpuscular Hemoglobin 28.0 L Mean Corpuscular Hemoglobin Concent 31.3 L Red Cell Distribution Width 21.6 H Platelet Count 195 # Mean Platelet Volume 10.6 H Immature Granulocytes % 1.000 H Neutrophils % 66.4 Lymphocytes % 10.3 L Monocytes % 18.2 H Eosinophils % 3.3 Basophils % 0.8 Nucleated Red Blood Cells % 0.0 Immature Granulocytes # 0.080 H Neutrophils # 5.5 Lymphocytes # 0.9 Monocytes # 1.5 H Eosinophils # 0.3 Basophils # 0.1 Nucleated Red Blood Cells # 0.0 Sodium Level 140 Potassium Level 4.3 Chloride Level 110 Carbon Dioxide Level 22 Anion Gap 8 Blood Urea Nitrogen 15 Creatinine 1.27 H Est Glomerular Filtrat Rate mL/min 58 L Glucose Level 93 Calcium Level 9.5 Phosphorus Level 3.2 Magnesium Level 1.8 Total Bilirubin 0.4 Direct Bilirubin 0.00 Indirect Bilirubin 0.4 Aspartate Amino Transf (AST/SGOT) 38 Alanine Aminotransferase (ALT/SGPT) 25 Alkaline Phosphatase 103 Total Protein 6.0 L Albumin 2.9 L Globulin 3.10 Albumin/Globulin Ratio 0.93 Medications Medication Current Medications Miscellaneous Information (* Miscellaneous Pharmacy Order) DURAMORPH: 0.2 MG SPI... GIVEN NEURAXIAL XX ; Start 09/13/18 at 16:30 IV Flush (NS 3 ml) 3 ml PER PROTOCOL IV ; Start 09/13/18 at 17:00 Acetaminophen (Tylenol Supp) 650 mg Q6H PRN [place] Fever; Start 09/13/18 at 17:00 Ondansetron HCl (Zofran Inj) 4 mg Q4H PRN IV NAUSEA AND/OR VOMITING; Start 09/13/18 at 17:00 Folic Acid (Folic Acid) 1 mg DAILY PO Last administered on 10/04/18at 08:11; Admin Dose 1 MG; Start 09/14/18 at 09:00 Multivit/Ca Carb/ B Cmplx/FA/Prenat (Flor-Elisa) 1 tab DAILY PO Last administered on 10/04/18at 08:10; Admin Dose 1 TAB; Start 09/14/18 at 09:00 Sodium Phosphate (Kphos Neutral) 1,000 mg BID PO Last administered on 10/04/18at 08:10; Admin Dose 1,000 MG; Start 09/13/18 at 21:00 Hydromorphone HCl (Dilaudid) 1 mg Q4H PRN IV SEVERE PAIN LEVEL 7-10 Last administered on 10/04/18at 12:26; Admin Dose 1 MG; Start 09/13/18 at 17:30 Leflunomide (Arava) 20 mg DAILY PO Last administered on 10/04/18 08:11; Admin Dose 20 MG; Start 09/14/18 at 09:00 Acetaminophen (Tylenol Tab) 650 mg Q6H PRN PO MILD PAIN(1-3)OR ELEVATED TEMP Last administered on 09/17/18 20:44; Admin Dose 650 MG; Start 09/17/18 at 17:00 Potassium Chloride (Klor-Con 10) 20 meq BID PO Last administered on 10/04/18 08:11; Admin Dose 20 MEQ; Start 09/23/18 at 09:00 Famotidine (Pepcid) 20 mg BID PO Last administered on 10/04/18 08:10; Admin Dose 20 MG; Start 09/23/18 at 21:00 Levofloxacin (Levaquin) 500 mg DAILY@06 PO Last administered on 10/04/18 05:08; Admin Dose 500 MG; Start 09/25/18 at 06:00; Stop 10/04/18 at 23:59 Magnesium Oxide (Mag-Ox 400) 1,200 mg TID PO Last administered on 10/04/18 08:10; Admin Dose 1,200 MG; Start 10/01/18 at 09:00 Metronidazole (Flagyl) 500 mg Q8 PO Last administered on 10/04/18 05:08; Admin Dose 500 MG; Start 10/02/18 at 08:00; Stop 10/04/18 at 23:59 Tacrolimus (Prograf) 1 mg BID PO Last administered on 10/04/18 08:11; Admin Dose 1 MG; Start 10/02/18 at 09:00 Amphotericin B Liposome 150 mg/ Dextrose 300 ml @ 200 mls/hr Q24H IVPB Last administered on 10/03/18 17:37; Admin Dose 200 MLS/HR; Start 10/02/18 at 18:00 Diphenhydramine HCl (Benadryl) 50 mg Q24H PO Last administered on 10/03/18 16:38; Admin Dose 50 MG; Start 10/02/18 at 17:30 Calcitriol (Rocaltrol) 0.25 mcg DAILY PO Last administered on 10/04/18 08:09; Admin Dose 0.25 MCG; Start 10/03/18 at 09:00 Amiodarone HCl (Cordarone) 200 mg BID PO ; Start 10/04/18 at 21:00 Diltiazem HCl (Cardizem Cd) 240 mg DAILY PO ; Start 10/05/18 at 09:00 Apixaban (Eliquis) 5 mg BID PO ; Start 10/04/18 at 21:00 CLARE IRBY M.D. Oct 04, 2018 13:20
--- NOTE | 2018-10-04 16:15 | CONS ---
Assessment/Plan Assessment/Plan Hospital Course (Demo Recall) 1. Kidney transplant status. The patient had a cadaveric kidney transplant in 2006. He is on immunosuppressive therapy. His renal function has been stable. I did speak to the head of the transplant service Dr.Gav Stephenson about the patient's immunosuppressive drugs. Dr. Giron recommended that we keep his tacrolimus level around 5 for the trough and discontinue the Arava. Dr. Delmy amaro does not think that the immunosuppressive's are delaying wound healing. I have discontinued Arava and adjusted the tacrolimus dose. 2. He is now 21 days postop a left below the knee amputation. His left foot was infected and gangrenous. He now has a L stump that is draining dark bloody purulent material . He underwent a third surgery yesterday. The left stump wound was opened, drained, debrided and washed out twice. Dr. Cortes was unable to close the wound. He still has a drain going to a wound VAC. He continues to have a wound infection. The last cultures were growing Bacteroides fragilis and a yeast. He is on antibiotics. 3. Hypertension 4. Peripheral artery disease 5. Anemia , is improving 6. Hyperlipidemia. 7. Hypomagnesemia, I suspect he is loosing magnesium through kidney . I have started him on an oral magnesium supplement and I have had to increase the dose because of continued low serum magnesium level. I will give him a dose of IV magnesium today because of the low serum magnesium. 8. Hypokalemia. Potassium is back to normal. I have increased his potassium supplements. Consultation Date/Type/Reason Admit Date/Time September 13, 2018 at 11:48 Initial Consult Date 09/13/18 Type of Consult Nephrology Requesting Provider: DOMINIQUE BURGESS NP Date/Time of Note DATE: 10/04/18 TIME: 16:06 24 HR Interval Summary Free Text/Dictation This patient is being seen in nephrologic follow-up. He has a kidney transplant that was performed in 2006 at [facility]. He is awake and alert and has no new problems. Constitutional: no complaints Exam/Review of Systems Exam Vitals Vital Signs Date Temp Pulse Resp B/P (MAP) Pulse Ox O2 O2 Flow FiO2 Time Delivery Rate 10/04/18 97.7 101 20 99/67 (78) 98 Room Air 14:51 Intake and Output 10/03/18 10/03/1810/04/19 1515:00 23:00 07:00 IntakeIntake Total 350 ml 980 ml 50 ml OutputOutput Total 850 ml 1500 ml 1600 ml BalanceBalance -500 ml -520 ml -1550 ml Exam He is status post a left below the knee amputation. He has a drain in the left knee stump which goes to a wound VAC. Constitutional: alert, oriented, frail Respiratory: clear to auscultation, normal air movement Cardiovascular: regular rate and rhythm Gastrointestinal: soft, non-tender Results Result Diagram: 10/04/1818 10/04/1818 Results 24hrs Laboratory Tests Test 10/04/18 05:18 White Blood Count 8.3 Red Blood Count 3.47 L Hemoglobin 9.7 L Hematocrit 31.0 L Mean Corpuscular Volume 89.3 Mean Corpuscular Hemoglobin 28.0 L Mean Corpuscular Hemoglobin Concent 31.3 L Red Cell Distribution Width 21.6 H Platelet Count 195 # Mean Platelet Volume 10.6 H Immature Granulocytes % 1.000 H Neutrophils % 66.4 Lymphocytes % 10.3 L Monocytes % 18.2 H Eosinophils % 3.3 Basophils % 0.8 Nucleated Red Blood Cells % 0.0 Immature Granulocytes # 0.080 H Neutrophils # 5.5 Lymphocytes # 0.9 Monocytes # 1.5 H Eosinophils # 0.3 Basophils # 0.1 Nucleated Red Blood Cells # 0.0 Sodium Level 140 Potassium Level 4.3 Chloride Level 110 Carbon Dioxide Level 22 Anion Gap 8 Blood Urea Nitrogen 15 Creatinine 1.27 H Est Glomerular Filtrat Rate mL/min 58 L Glucose Level 93 Calcium Level 9.5 Phosphorus Level 3.2 Magnesium Level 1.8 Total Bilirubin 0.4 Direct Bilirubin 0.00 Indirect Bilirubin 0.4 Aspartate Amino Transf (AST/SGOT) 38 Alanine Aminotransferase (ALT/SGPT) 25 Alkaline Phosphatase 103 Total Protein 6.0 L Albumin 2.9 L Globulin 3.10 Albumin/Globulin Ratio 0.93 Medications Medication Current Medications Miscellaneous Information (* Miscellaneous Pharmacy Order) DURAMORPH: 0.2 MG SPI... GIVEN NEURAXIAL XX ; Start 09/13/18 at 16:30 IV Flush (NS 3 ml) 3 ml PER PROTOCOL IV ; Start 09/13/18 at 17:00 Acetaminophen (Tylenol Supp) 650 mg Q6H PRN [place] Fever; Start 09/13/18 at 17:00 Ondansetron HCl (Zofran Inj) 4 mg Q4H PRN IV NAUSEA AND/OR VOMITING; Start 09/13/18 at 17:00 Folic Acid (Folic Acid) 1 mg DAILY PO Last administered on 10/04/18 08:11; Admin Dose 1 MG; Start 09/14/18 at 09:00 Multivit/Ca Carb/ B Cmplx/FA/Prenat (Flor-Elisa) 1 tab DAILY PO Last administered on 10/04/18 08:10; Admin Dose 1 TAB; Start 09/14/18 at 09:00 Sodium Phosphate (Kphos Neutral) 1,000 mg BID PO Last administered on 10/04/18 08:10; Admin Dose 1,000 MG; Start 09/13/18 at 21:00 Hydromorphone HCl (Dilaudid) 1 mg Q4H PRN IV SEVERE PAIN LEVEL 7-10 Last administered on 10/04/18 12:26; Admin Dose 1 MG; Start 09/13/18 at 17:30 Leflunomide (Arava) 20 mg DAILY PO Last administered on 10/04/18 08:11; Admin Dose 20 MG; Start 09/14/18 at 09:00 Acetaminophen (Tylenol Tab) 650 mg Q6H PRN PO MILD PAIN(1-3)OR ELEVATED TEMP Last administered on 09/17/18 20:44; Admin Dose 650 MG; Start 09/17/18 at 17:00 Potassium Chloride (Klor-Con 10) 20 meq BID PO Last administered on 10/04/18 08:11; Admin Dose 20 MEQ; Start 09/23/18 at 09:00 Famotidine (Pepcid) 20 mg BID PO Last administered on 10/04/18 08:10; Admin Dose 20 MG; Start 09/23/18 at 21:00 Levofloxacin (Levaquin) 500 mg DAILY@06 PO Last administered on 10/04/18 05:08; Admin Dose 500 MG; Start 09/25/18 at 06:00; Stop 10/04/18 at 23:59 Magnesium Oxide (Mag-Ox 400) 1,200 mg TID PO Last administered on 10/04/18 13:15; Admin Dose 1,200 MG; Start 10/01/18 at 09:00 Metronidazole (Flagyl) 500 mg Q8 PO Last administered on 10/04/18at 13:15; Admin Dose 500 MG; Start 10/02/18 at 08:00; Stop 10/04/18 at 23:59 Amphotericin B Liposome 150 mg/ Dextrose 300 ml @ 200 mls/hr Q24H IVPB Last administered on 10/03/18at 17:37; Admin Dose 200 MLS/HR; Start 10/02/18 at 18:00; Stop 10/12/18 at 17:59 Diphenhydramine HCl (Benadryl) 50 mg Q24H PO Last administered on 10/03/18at 16:38; Admin Dose 50 MG; Start 10/02/18 at 17:30; Stop 10/12/18 at 17:29 Calcitriol (Rocaltrol) 0.25 mcg DAILY PO Last administered on 10/04/18at 08:09; Admin Dose 0.25 MCG; Start 10/03/18 at 09:00 Amiodarone HCl (Cordarone) 200 mg BID PO ; Start 10/04/18 at 21:00 Diltiazem HCl (Cardizem Cd) 240 mg DAILY PO ; Start 10/05/18 at 09:00 Apixaban (Eliquis) 5 mg BID PO ; Start 10/04/18 at 21:00 Tacrolimus (Prograf) 0.5 mg HS PO ; Start 10/04/18 at 21:00 Tacrolimus (Prograf) 1 mg DAILY PO ; Start 10/05/18 at 09:00 ERIN MONTOYA MD Oct 04, 2018 16:15
[2018-10-04] MEDS: DIPHENHYDRAMINE 50 MG CAP PO SCH (16:45)
[2018-10-04] MEDS: AMPHOTERICIN B LIPOSOME IVPB SCH (17:22)
[2018-10-04] MEDS: DEXTROSE 5% IVPB SCH (17:22)
[2018-10-04] MEDS: APIXABAN 5 MG TABLET PO SCH (20:45)
[2018-10-04] MEDS: TACROLIMUS 0.5 MG CAP PO SCH (20:47)
[2018-10-05] VITALS (11 sets, daily range): BP systolic 111–141; BP diastolic 68–78; PULSE 97–116; RESP 17–20
--- NOTE | 2018-10-05 08:39 | CONS ---
Assessment/Plan Assessment/Plan Problems: (1) Renal transplant recipient Comment: on lower dose Tacro now... Cr slow rise since started the Ambisome (2) Renal insufficiency Comment: Cr up sl since on the Ambisome... watch carefully.. will increase fluids for now (3) Wound infection after surgery Comment: on abx + antifungal...concerns as above (4) Hypomagnesemia Comment: being replaced Consultation Date/Type/Reason Admit Date/Time September 13, 2018 at 11:48 Type of Consult Nephrology Date/Time of Note DATE: 10/05/18 TIME: 08:35 Hx of Present Illness feels well..denies any issues Exam/Review of Systems Vital Signs Vitals Vital Signs Date Temp Pulse Resp B/P (MAP) Pulse Ox O2 O2 Flow FiO2 Time Delivery Rate 10/05/18 97.8 101 20 127/75 100 Room Air 07:20 (92) Intake and Output 10/04/18 10/04/18 10/05/18 1515:00 23:00 07:00 IntakeIntake Total 240 ml 420 ml OutputOutput Total 150 ml 550 ml 700 ml BalanceBalance 90 ml -130 ml -700 ml Exam Constitutional: alert, oriented Psych: no complaints Eyes: nl conjunctiva Neck: supple Respiratory: clear to auscultation Cardiovascular: regular rate and rhythm Gastrointestinal: soft Extremities: other (VAC L stump) Labs Result Diagram: 10/04/1851710/04/18517 Medications Medications Current Medications Miscellaneous Information (* Miscellaneous Pharmacy Order) DURAMORPH: 0.2 MG SPI... GIVEN NEURAXIAL XX ; Start 09/13/18 at 16:30 IV Flush (NS 3 ml) 3 ml PER PROTOCOL IV ; Start 09/13/18 at 17:00 Acetaminophen (Tylenol Supp) 650 mg Q6H PRN [place] Fever; Start 09/13/18 at 17:00 Ondansetron HCl (Zofran Inj) 4 mg Q4H PRN IV NAUSEA AND/OR VOMITING; Start 09/13/18 at 17:00 Folic Acid (Folic Acid) 1 mg DAILY PO Last administered on 10/04/18at 08:11; Admin Dose 1 MG; Start 09/14/18 at 09:00 Multivit/Ca Carb/ B Cmplx/FA/Prenat (Flor-Elisa) 1 tab DAILY PO Last administer ed on 10/04/18 08:10; Admin Dose 1 TAB; Start 09/14/18 at 09:00 Sodium Phosphate (Kphos Neutral) 1,000 mg BID PO Last administered on 10/04/18 20:46; Admin Dose 1,000 MG; Start 09/13/18 at 21:00 Hydromorphone HCl (Dilaudid) 1 mg Q4H PRN IV SEVERE PAIN LEVEL 7-10 Last administered on 10/04/18 12:26; Admin Dose 1 MG; Start 09/13/18 at 17:30 Acetaminophen (Tylenol Tab) 650 mg Q6H PRN PO MILD PAIN(1-3)OR ELEVATED TEMP Last administered on 09/17/18 20:44; Admin Dose 650 MG; Start 09/17/18 at 17:00 Potassium Chloride (Klor-Con 10) 20 meq BID PO Last administered on 10/04/18 20:46; Admin Dose 20 MEQ; Start 09/23/18 at 09:00 Famotidine (Pepcid) 20 mg BID PO Last administered on 10/04/18 20:47; Admin Dose 20 MG; Start 09/23/18 at 21:00 Magnesium Oxide (Mag-Ox 400) 1,200 mg TID PO Last administered on 10/04/18 20:45; Admin Dose 1,200 MG; Start 10/01/18 at 09:00 Amphotericin B Liposome 150 mg/ Dextrose 300 ml @ 200 mls/hr Q24H IVPB Last administered on 10/04/18 17:22; Admin Dose 200 MLS/HR; Start 10/02/18 at 18:00; Stop 10/12/18 at 17:59 Diphenhydramine HCl (Benadryl) 50 mg Q24H PO Last administered on 10/04/18 16:45; Admin Dose 50 MG; Start 10/02/18 at 17:30; Stop 10/12/18 at 17:29 Calcitriol (Rocaltrol) 0.25 mcg DAILY PO Last administered on 10/04/18 08:09; Admin Dose 0.25 MCG; Start 10/03/18 at 09:00 Amiodarone HCl (Cordarone) 200 mg BID PO Last administered on 10/04/18 20:45; Admin Dose 200 MG; Start 10/04/18 at 21:00 Diltiazem HCl (Cardizem Cd) 240 mg DAILY PO ; Start 10/05/18 at 09:00 Apixaban (Eliquis) 5 mg BID PO Last administered on 10/04/18at 20:45; Admin Dose 5 MG; Start 10/04/18 at 21:00 Tacrolimus (Prograf) 0.5 mg HS PO Last administered on 10/04/18at 20:47; Admin Dose 0.5 MG; Start 10/04/18 at 21:00 Tacrolimus (Prograf) 1 mg DAILY PO ; Start 10/05/18 at 09:00 TONYA WHITT MD Oct 05, 2018 08:39
[2018-10-05] MEDS: SOD CHLORIDE 0.9% 1,000 ML IV SCH ×2 (09:48→21:00)
[2018-10-05] MEDS: MULTIVIT/CA CARB/B CMPLX/FA TAB PO SCH (09:49)
[2018-10-05] MEDS: POTASSIUM CHLORIDE (SR) 10 MEQ TAB PO SCH ×2 (09:49→21:10)
[2018-10-05] MEDS: APIXABAN 5 MG TABLET PO SCH ×2 (09:49→21:10)
[2018-10-05] MEDS: CALCITRIOL 0.25 MCG CAP PO SCH (09:49)
[2018-10-05] MEDS: TACROLIMUS 1 MG CAP PO SCH (09:49)
[2018-10-05] MEDS: FAMOTIDINE 20 MG TAB PO SCH ×2 (09:49→21:10)
[2018-10-05] MEDS: SOD PHOS MONO/DIBAS 250 MG TAB PO SCH ×2 (09:49→22:03)
[2018-10-05] MEDS: AMIODARONE 200 MG TAB PO SCH ×2 (09:49→21:10)
[2018-10-05] MEDS: MAGNESIUM OXIDE 400 MG TAB PO SCH ×3 (09:50→21:09)
[2018-10-05] MEDS: FOLIC ACID 1 MG TAB PO SCH (09:50)
[2018-10-05] MEDS: DILTIAZEM (CD) 240 MG CAP PO SCH (09:52)
--- NOTE | 2018-10-05 10:01 | CONS ---
Assessment/Plan Assessment/Plan Hospital Course (Demo Recall) # sepsis, muskuloskeletal, derm - s/p sepsis due infected left BKA stump - infected L BKA stump site - s/p further revision of L BKA site and wound vac placement on 10/02/2018 - s/p exploration and washout, debridement and VAC placement left infected below knee amputation stump on 09/19/2018; Wound culture grew Bacteroides Fragilis on 09/18/2018; Intraop culture grew coag neg staph and Bacteroides Fragilis on 09/19/18. CoNS is a likely colonizer; Fungal culture 09/19/18 grew A. versicolor group, submitted reference lab for sensitivity; path negative for malignancy - s/p L BKA on 09/13/2018 - h/o draining wound, necrosis and infection of L TMA site. ESR 121 on 09/12/2018. # renal, cardiac - h/o renal transplant at [facility] in 2006, maintained on tacrolimus - immunocompromised status - hypomagnesemia - repleted - A fib with RVR, converted to SR - hypertension # other conditions - expected post-op anemia - transaminitis - improving - adverse reaction to cefazolin (hives), meropenem (pruritus) Pt previously took aztreonam (09/13/2018-09/24/2018) recommendations: - monitor crcl closely on Ambisome - the fungal culture from 09/19/2018 grew A. versicolor group, I requested its sensitivity on 10/02/2018 (Nena at micro lab) - Pt's aspergillus could be a colonizer of the wound; however, Pt's immunoc ompromised and we favor its treatment x 10 days: Ambisome (10/02/2018-) with premedication with PO benadryl and normal saline - the antifungal of choice for aspergillus is voriconazole, but it potently interacts with tacrolimus, and its level must be adjusted. [facility] does not have an inhouse assay for tacrolimus level and so tacrolimus cannot be dosed in a timely manner. This is a safety concern. Consultation Date/Type/Reason Admit Date/Time September 13, 2018 at 11:48 Initial Consult Date 09/13/18 Requesting Provider: DOMINIQUE BURGESS NP Date/Time of Note DATE: 10/05/18 TIME: 09:59 24 HR Interval Summary Free Text/Dictation no fevers or chills or other changes Exam/Review of Systems Exam Vitals Vital Signs Date Temp Pulse Resp B/P (MAP) Pulse Ox O2 O2 Flow FiO2 Time Delivery Rate 10/05/18 100 08:00 10/05/18 97.8 20 127/75 100 Room Air 07:20 (92) Intake and Output 10/04/18 10/04/18 10/05/18 1515:00 23:00 07:00 IntakeIntake Total 240 ml 420 ml OutputOutput Total 150 ml 550 ml 700 ml BalanceBalance 90 ml -130 ml -700 ml Constitutional: alert, oriented, well developed Psych: no complaints, nl mood/affect Head: normocephalic, atraumatic Eyes: nl conjunctiva, EOMI, nl lids, nl sclera, PERRL Respiratory: clear to auscultation, normal air movement Cardiovascular: regular rate and rhythm, nl pulses Gastrointestinal: soft, nl liver, spleen, non-tender 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 GIVEN NEURAXIAL XX ; Start 09/13/18 at 16:30 IV Flush (NS 3 ml) 3 ml PER PROTOCOL IV ; Start 09/13/18 at 17:00 Acetaminophen (Tylenol Supp) 650 mg Q6H PRN [place] Fever; Start 09/13/18 at 17:00 Ondansetron HCl (Zofran Inj) 4 mg Q4H PRN IV NAUSEA AND/OR VOMITING; Start 09/13/18 at 17:00 Folic Acid (Folic Acid) 1 mg DAILY PO Last administered on 10/05/18at 09:50; Admin Dose 1 MG; Start 09/14/18 at 09:00 Multivit/Ca Carb/ B Cmplx/FA/Prenat (Flor-Elisa) 1 tab DAILY PO Last administered on 10/05/18at 09:49; Admin Dose 1 TAB; Start 09/14/18 at 09:00 Sodium Phosphate (Kphos Neutral) 1,000 mg BID PO Last administered on 10/04/18at 20:46; Admin Dose 1,000 MG; Start 09/13/18 at 21:00 Hydromorphone HCl (Dilaudid) 1 mg Q4H PRN IV SEVERE PAIN LEVEL 7-10 Last administered on 10/04/18 12:26; Admin Dose 1 MG; Start 09/13/18 at 17:30 Acetaminophen (Tylenol Tab) 650 mg Q6H PRN PO MILD PAIN(1-3)OR ELEVATED TEMP Last administered on 09/17/18 20:44; Admin Dose 650 MG; Start 09/17/18 at 17:00 Potassium Chloride (Klor-Con 10) 20 meq BID PO Last administered on 10/05/18 09:49; Admin Dose 20 MEQ; Start 09/23/18 at 09:00 Famotidine (Pepcid) 20 mg BID PO Last administered on 10/05/18 09:49; Admin Dose 20 MG; Start 09/23/18 at 21:00 Magnesium Oxide (Mag-Ox 400) 1,200 mg TID PO Last administered on 10/05/18 09:50; Admin Dose 1,200 MG; Start 10/01/18 at 09:00 Amphotericin B Liposome 150 mg/ Dextrose 300 ml @ 200 mls/hr Q24H IVPB Last administered on 10/04/18 17:22; Admin Dose 200 MLS/HR; Start 10/02/18 at 18:00; Stop 10/12/18 at 17:59 Diphenhydramine HCl (Benadryl) 50 mg Q24H PO Last administered on 10/04/18 16:45; Admin Dose 50 MG; Start 10/02/18 at 17:30; Stop 10/12/18 at 17:29 Calcitriol (Rocaltrol) 0.25 mcg DAILY PO Last administered on 10/05/18 09:49; Admin Dose 0.25 MCG; Start 10/03/18 at 09:00 Amiodarone HCl (Cordarone) 200 mg BID PO Last administered on 10/05/18 09:49; Admin Dose 200 MG; Start 10/04/18 at 21:00 Diltiazem HCl (Cardizem Cd) 240 mg DAILY PO Last administered on 10/05/18 09:52; Admin Dose 240 MG; Start 10/05/18 at 09:00 Apixaban (Eliquis) 5 mg BID PO Last administered on 10/05/18 09:49; Admin Dose 5 MG; Start 10/04/18 at 21:00 Tacrolimus (Prograf) 0.5 mg HS PO Last administered on 10/04/18at 20:47; Admin Dose 0.5 MG; Start 10/04/18 at 21:00 Tacrolimus (Prograf) 1 mg DAILY PO Last administered on 10/05/18 09:49; Admin Dose 1 MG; Start 10/05/18 at 09:00 Sodium Chloride 1,000 ml @ 80 mls/hr [id number] IV Last administered on 10/05/18 09:48; Admin Dose 80 MLS/HR; Start 10/05/18 at 08:30 JACKIE ARIAS MD Oct 05, 2018 10:01
--- NOTE | 2018-10-05 16:19 | PN ---
Date/Time of Note Date/Time of Note DATE: 10/05/18 TIME: 16:12 Assessment/Plan VTE Prophylaxis Risk score (from Ns)>0 risk: 3 SCD applied (from Ns): Yes SCD contraindicated: low risk/ambulating Pharmacological prophylaxis: apixaban Lines/Catheters IV Catheter Type (from Nrs): Peripheral IV Urinary Cath still in place: No Assessment/Plan Hospital Course A/P 1. Sepsis, stable resolving. Finish antibiotics 2. 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 Lt BKA infected stump sp debridement x2. No active bleed// pus cont wound VAC 4. PAD 5. Debility 6. Renal transplant status 2006, stable cont antirejection meds, unless infection is failing therapy 7. SSTI/infected cont antibiotics/antifungal 8. Anemia stable observe 9. Hypertension 10. Dyslipidemia 11. SVT stable 12. New onset A. fib, amiodarone until 7 7. Eliquis started 13. Ftt, participating with PT anticipate aru transfer soon S: No distress mild pain. No active bleed. No fever dyspnea. Participating with PT O: Vss; rate controlled PE No pallor JVD Regular no mrg Clear Benign Lt BKA stump clean dressed intact Result Diagram: 10/04/1851710/04/1818 Exam/Review of Systems Exam Vitals Vital Signs Date Temp Pulse Resp B/P (MAP) Pulse Ox O2 O2 Flow FiO2 Time Delivery Rate 10/05/18 98.2 106 20 111/69 96 Room Air 15:42 (83) Intake and Output 10/04/18 10/04/18 10/05/18 1515:00 23:00 07:00 IntakeIntake Total 240 ml 420 ml OutputOutput Total 150 ml 550 ml 700 ml BalanceBalance 90 ml -130 ml -700 ml Medications Medication Current Medications Miscellaneous Information (* Miscellaneous Pharmacy Order) DURAMORPH: 0.2 MG SPI... GIVEN NEURAXIAL XX ; Start 09/13/18 at 16:30 IV Flush (NS 3 ml) 3 ml PER PROTOCOL IV ; Start 09/13/18 at 17:00 Acetaminophen (Tylenol Supp) 650 mg Q6H PRN [place] Fever; Start 09/13/18 at 17:00 Ondansetron HCl (Zofran Inj) 4 mg Q4H PRN IV NAUSEA AND/OR VOMITING; Start 09/13/18 at 17:00 Folic Acid (Folic Acid) 1 mg DAILY PO Last administered on 10/05/18 09:50; Admin Dose 1 MG; Start 09/14/18 at 09:00 Multivit/Ca Carb/ B Cmplx/FA/Prenat (Flor-Elisa) 1 tab DAILY PO Last adm inistered on 10/05/18 09:49; Admin Dose 1 TAB; Start 09/14/18 at 09:00 Sodium Phosphate (Kphos Neutral) 1,000 mg BID PO Last administered on 10/04/18 20:46; Admin Dose 1,000 MG; Start 09/13/18 at 21:00 Hydromorphone HCl (Dilaudid) 1 mg Q4H PRN IV SEVERE PAIN LEVEL 7-10 Last administered on 10/04/18 12:26; Admin Dose 1 MG; Start 09/13/18 at 17:30 Acetaminophen (Tylenol Tab) 650 mg Q6H PRN PO MILD PAIN(1-3)OR ELEVATED TEMP Last administered on 09/17/18 20:44; Admin Dose 650 MG; Start 09/17/18 at 17:00 Potassium Chloride (Klor-Con 10) 20 meq BID PO Last administered on 10/05/18 09:49; Admin Dose 20 MEQ; Start 09/23/18 at 09:00 Famotidine (Pepcid) 20 mg BID PO Last administered on 10/05/18 09:49; Admin Dose 20 MG; Start 09/23/18 at 21:00 Magnesium Oxide (Mag-Ox 400) 1,200 mg TID PO Last administered on 10/05/18 15:24; Admin Dose 1,200 MG; Start 10/01/18 at 09:00 Amphotericin B Liposome 150 mg/ Dextrose 300 ml @ 200 mls/hr Q24H IVPB Last administered on 10/04/18 17:22; Admin Dose 200 MLS/HR; Start 10/02/18 at 18:00; Stop 10/12/18 at 17:59 Diphenhydramine HCl (Benadryl) 50 mg Q24H PO Last administered on 10/04/18 16:45; Admin Dose 50 MG; Start 10/02/18 at 17:30; Stop 10/12/18 at 17:29 Calcitriol (Rocaltrol) 0.25 mcg DAILY PO Last administered on 10/05/18 09:49; Admin Dose 0.25 MCG; Start 10/03/18 at 09:00 Amiodarone HCl (Cordarone) 200 mg BID PO Last administered on 10/05/18 09:49; Admin Dose 200 MG; Start 10/04/18 at 21:00 Diltiazem HCl (Cardizem Cd) 240 mg DAILY PO Last administered on 10/05/18 09:52; Admin Dose 240 MG; Start 10/05/18 at 09:00 Apixaban (Eliquis) 5 mg BID PO Last administered on 10/05/18 09:49; Admin Dose 5 MG; Start 10/04/18 at 21:00 Tacrolimus (Prograf) 0.5 mg HS PO Last administered on 10/04/18 20:47; Admin Dose 0.5 MG; Start 10/04/18 at 21:00 Tacrolimus (Prograf) 1 mg DAILY PO Last administered on 10/05/18 09:49; Admin Dose 1 MG; Start 10/05/18 at 09:00 Sodium Chloride 1,000 ml @ 80 mls/hr [id number] IV Last administered on 10/05/18 09:48; Admin Dose 80 MLS/HR; Start 10/05/18 at 08:30 BRAYDEN JASON MD Oct 05, 2018 16:19
[2018-10-05] MEDS: DIPHENHYDRAMINE 50 MG CAP PO SCH (18:34)
[2018-10-05] MEDS: AMPHOTERICIN B LIPOSOME IVPB SCH (19:02)
[2018-10-05] MEDS: DEXTROSE 5% IVPB SCH (19:02)
[2018-10-05] MEDS: TACROLIMUS 0.5 MG CAP PO SCH (21:09)
[2018-10-06] VITALS (12 sets, daily range): BP systolic 106–151; BP diastolic 61–77; PULSE 92–107; RESP 16–18
[2018-10-06] MEDS: SOD CHLORIDE 0.9% 1,000 ML IV SCH ×3 (03:07→22:43)
[2018-10-06] MEDS: CALCITRIOL 0.25 MCG CAP PO SCH (08:11)
[2018-10-06] MEDS: TACROLIMUS 1 MG CAP PO SCH (08:11)
[2018-10-06] MEDS: MAGNESIUM OXIDE 400 MG TAB PO SCH ×3 (08:12→21:03)
[2018-10-06] MEDS: MULTIVIT/CA CARB/B CMPLX/FA TAB PO SCH (08:12)
[2018-10-06] MEDS: DILTIAZEM (CD) 240 MG CAP PO SCH (08:12)
[2018-10-06] MEDS: AMIODARONE 200 MG TAB PO SCH ×2 (08:12→21:03)
[2018-10-06] MEDS: FAMOTIDINE 20 MG TAB PO SCH ×2 (08:12→21:03)
[2018-10-06] MEDS: FOLIC ACID 1 MG TAB PO SCH (08:12)
[2018-10-06] MEDS: APIXABAN 5 MG TABLET PO SCH ×2 (08:13→21:02)
--- NOTE | 2018-10-06 08:28 | CONS ---
Assessment/Plan Assessment/Plan Problems: (1) Acute renal failure Comment: despite IV fluids and lower [place], Cr up to 1.6 today... thus, I will STOP the Abisome NOW... ID to address as well.. as well, will STOP all K supps for the time being, pd f/u renal fxn (2) Ischemic cardiomyopathy Comment: asx... fluids given for renal fxn...watch carefully (3) Hypomagnesemia Comment: resolving (4) Wound infection after surgery Comment: again, stopped the Ampho now... is it a true fungal infection vs contaminant?.. per ID Consultation Date/Type/Reason Admit Date/Time September 13, 2018 at 11:48 Type of Consult Nephrology Date/Time of Note DATE: 10/06/18 TIME: 08:23 Hx of Present Illness has no c/o.. states good UOP, but Cr with further rise Exam/Review of Systems Vital Signs Vitals Vital Signs Date Temp Pulse Resp B/P (MAP) Pulse Ox O2 O2 Flow FiO2 Time Delivery Rate 10/06/18 98.1 92 16 118/73 98 07:37 (88) 10/05/18 Room Air 15:42 Intake and Output 10/05/18 10/05/18 10/06/18 1515:00 23:00 07:00 IntakeIntake Total 240 ml 1140 ml 1030 ml OutputOutput Total 250 ml 200 ml 500 ml BalanceBalance -10 ml 940 ml 530 ml Exam Constitutional: alert, oriented Psych: no complaints Neck: supple Respiratory: clear to auscultation Cardiovascular: regular rate and rhythm Gastrointestinal: soft Extremities: other (VAC L stump) Labs Result Diagram: 10/06/18 0502 10/06/18 0502 Results 24hrs Laboratory Tests Test 10/06/18 05:02 White Blood Count 6.5 # Red Blood Count 3.30 L Hemoglobin 9.2 L Hematocrit 29.8 L Mean Corpuscular Volume 90.3 Mean Corpuscular Hemoglobin 27.9 L Mean Corpuscular Hemoglobin Concent 30.9 L Red Cell Distribution Width 21.6 H Platelet Count 178 Mean Platelet Volume 10.3 Immature Granulocytes % 1.100 H Neutrophils % 62.5 Lymphocytes % 11.6 L Monocytes % 17.6 H Eosinophils % 6.4 Basophils % 0.8 Nucleated Red Blood Cells % 0.0 Immature Granulocytes # 0.070 H Neutrophils # 4.1 Lymphocytes # 0.8 Monocytes # 1.2 H Eosinophils # 0.4 Basophils # 0.1 Nucleated Red Blood Cells # 0.0 Sodium Level 144 Potassium Level 4.1 Chloride Level 113 H Carbon Dioxide Level 22 Anion Gap 9 Blood Urea Nitrogen 21 H Creatinine 1.60 H Est Glomerular Filtrat Rate mL/min 44 L Glucose Level 125 Calcium Level 9.7 Magnesium Level 1.7 Total Bilirubin 0.3 Direct Bilirubin 0.00 Indirect Bilirubin 0.3 Aspartate Amino Transf (AST/SGOT) 36 Alanine Aminotransferase (ALT/SGPT) 20 Alkaline Phosphatase 93 Total Protein 6.0 L Albumin 2.8 L Globulin 3.20 Albumin/Globulin Ratio 0.87 Medications Medications Current Medications Miscellaneous Information (* Miscellaneous Pharmacy Order) DURAMORPH: 0.2 MG SPI... GIVEN NEURAXIAL XX ; Start 09/13/18 at 16:30 IV Flush (NS 3 ml) 3 ml PER PROTOCOL IV ; Start 09/13/18 at 17:00 Acetaminophen (Tylenol Supp) 650 mg Q6H PRN [place] Fever; Start 09/13/18 at 17:00 Ondansetron HCl (Zofran Inj) 4 mg Q4H PRN IV NAUSEA AND/OR VOMITING; Start 09/13/18 at 17:00 Folic Acid (Folic Acid) 1 mg DAILY PO Last administered on 10/05/18at 09:50; Admin Dose 1 MG; Start 09/14/18 at 09:00 Multivit/Ca Carb/ B Cmplx/FA/Prenat (Flor-Elisa) 1 tab DAILY PO Last administered on 10/05/18at 09:49; Admin Dose 1 TAB; Start 09/14/18 at 09:00 Sodium Phosphate (Kphos Neutral) 1,000 mg BID PO Last administered on 10/05/18at 22:03; Admin Dose 1,000 MG; Start 09/13/18 at 21:00 Hydromorphone HCl (Dilaudid) 1 mg Q4H PRN IV SEVERE PAIN LEVEL 7-10 Last administered on 10/04/18at 12:26; Admin Dose 1 MG; Start 09/13/18 at 17:30 Acetaminophen (Tylenol Tab) 650 mg Q6H PRN PO MILD PAIN(1-3)OR ELEVATED TEMP Last administered on 09/17/18 20:44; Admin Dose 650 MG; Start 09/17/18 at 17:00 Famotidine (Pepcid) 20 mg BID PO Last administered on 10/05/18 21:10; Admin Dose 20 MG; Start 09/23/18 at 21:00 Magnesium Oxide (Mag-Ox 400) 1,200 mg TID PO Last administered on 10/05/18 21:09; Admin Dose 1,200 MG; Start 10/01/18 at 09:00 Diphenhydramine HCl (Benadryl) 50 mg Q24H PO Last administered on 10/05/18 18:34; Admin Dose 50 MG; Start 10/02/18 at 17:30; Stop 10/12/18 at 17:29 Calcitriol (Rocaltrol) 0.25 mcg DAILY PO Last administered on 10/05/18 09:49; Admin Dose 0.25 MCG; Start 10/03/18 at 09:00 Amiodarone HCl (Cordarone) 200 mg BID PO Last administered on 10/05/18 21:10; Admin Dose 200 MG; Start 10/04/18 at 21:00 Diltiazem HCl (Cardizem Cd) 240 mg DAILY PO Last administered on 10/05/18 09:52; Admin Dose 240 MG; Start 10/05/18 at 09:00 Apixaban (Eliquis) 5 mg BID PO Last administered on 10/05/18 21:10; Admin Dose 5 MG; Start 10/04/18 at 21:00 Tacrolimus (Prograf) 0.5 mg HS PO Last administered on 10/05/18 21:09; Admin Dose 0.5 MG; Start 10/04/18 at 21:00 Tacrolimus (Prograf) 1 mg DAILY PO Last administered on 10/05/18 09:49; Admin Dose 1 MG; Start 10/05/18 at 09:00 Sodium Chloride 1,000 ml @ 80 mls/hr [id number] IV Last administered on 10/06/18 03:07; Admin Dose 80 MLS/HR; Start 10/05/18 at 08:30 TONYA WHITT MD Oct 06, 2018 08:28
--- NOTE | 2018-10-06 15:27 | CONS ---
Assessment/Plan Assessment/Plan Hospital Course (Demo Recall) # sepsis, muskuloskeletal, derm - s/p sepsis due infected left BKA stump - infected L BKA stump site - s/p further revision of L BKA site and wound vac placement on 10/02/2018 - s/p exploration and washout, debridement and VAC placement left infected below knee amputation stump on 09/19/2018; Wound culture grew Bacteroides Fragilis on 09/18/2018; Intraop culture grew coag neg staph and Bacteroides Fragilis on 09/19/18. CoNS is a likely colonizer; Fungal culture 09/19/18 grew A. versicolor group, submitted reference lab for sensitivity; path negative for malignancy - s/p L BKA on 09/13/2018 - h/o draining wound, necrosis and infection of L TMA site. ESR 121 on 09/12/2018. # renal, cardiac - h/o renal transplant at [facility] in 2006, maintained on tacrolimus - immunocompromised status - hypomagnesemia - repleted - A fib with RVR, converted to SR - hypertension # other conditions - expected post-op anemia - transaminitis - improving - adverse reaction to cefazolin (hives), meropenem (pruritus) Pt previously took aztreonam (09/13/2018-09/24/2018), levofloxacin (09/17/2018- 10/04/2018) and metronidazole (09/17/2018-10/04/2018) Recommendations: - the fungal culture from 09/19/2018 grew A. versicolor group, Dr. 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 [facility] does not have an inhouse assay for tacrolimus level and so tacrolimus cannot be dosed in a timely manner. This is a safety concern. Hence, pt is on Ambisome instead of voriconazole. Management d/w patient, XAVIER Gonzalez, and with Dr. Bailey Consultation Date/Type/Reason Admit Date/Time September 13, 2018 at 11:48 Initial Consult Date 09/13/18 Type of Consult Infectious Disease Requesting Provider: DOMINIQUE BURGESS NP Date/Time of Note DATE: 10/06/18 TIME: 15:22 24 HR Interval Summary Free Text/Dictation Sleepy today as he didn't sleep well last night. No pain, SOB, fever, chills, n/v/d, dysuria. No acute issues per d/w nursing. Remains afebrile. Exam/Review of Systems Exam Vitals Vital Signs Date Temp Pulse Resp B/P (MAP) Pulse Ox O2 O2 Flow FiO2 Time Delivery Rate 10/06/18 98 13:27 10/06/18 97.6 17 151/77 99 11:17 (101) 10/05/18 Room Air 15:42 Intake and Output 10/05/18 10/05/18 10/06/18 1515:00 23:00 07:00 IntakeIntake Total 240 ml 1140 ml 1030 ml OutputOutput Total 250 ml 200 ml 500 ml BalanceBalance -10 ml 940 ml 530 ml Exam Constitutional: alert, oriented, well developed Psych: no complaints, nl mood/affect Head: normocephalic, atraumatic Eyes: nl conjunctiva, nl lids, nl sclera ENMT: nl external ears & nose, nl nasal mucosa & septum Neck: supple Respiratory: clear to auscultation, normal air movement Cardiovascular: regular rate and rhythm, nl pulses Gastrointestinal: soft, non-tender Musculoskeletal: other (s/p L BKA with wound VAC is in place) Extremities: other (former AVF on BUE noted); No edema 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: [employer] II-XII intact, nl mental status, nl speech Skin: nl turgor; No rash or lesions Results Result Diagram: 10/06/18 0502 10/06/18 0502 Results 24hrs Laboratory Tests Test 10/06/18 05:02 White Blood Count 6.5 # Red Blood Count 3.30 L Hemoglobin 9.2 L Hematocrit 29.8 L Mean Corpuscular Volume 90.3 Mean Corpuscular Hemoglobin 27.9 L Mean Corpuscular Hemoglobin Concent 30.9 L Red Cell Distribution Width 21.6 H Platelet Count 178 Mean Platelet Volume 10.3 Immature Granulocytes % 1.100 H Neutrophils % 62.5 Lymphocytes % 11.6 L Monocytes % 17.6 H Eosinophils % 6.4 Basophils % 0.8 Nucleated Red Blood Cells % 0.0 Immature Granulocytes # 0.070 H Neutrophils # 4.1 Lymphocytes # 0.8 Monocytes # 1.2 H Eosinophils # 0.4 Basophils # 0.1 Nucleated Red Blood Cells # 0.0 Sodium Level 144 Potassium Level 4.1 Chloride Level 113 H Carbon Dioxide Level 22 Anion Gap 9 Blood Urea Nitrogen 21 H Creatinine 1.60 H Est Glomerular Filtrat Rate mL/min 44 L Glucose Level 125 Calcium Level 9.7 Magnesium Level 1.7 Total Bilirubin 0.3 Direct Bilirubin 0.00 Indirect Bilirubin 0.3 Aspartate Amino Transf (AST/SGOT) 36 Alanine Aminotransferase (ALT/SGPT) 20 Alkaline Phosphatase 93 Total Protein 6.0 L Albumin 2.8 L Globulin 3.20 Albumin/Globulin Ratio 0.87 Medications Medication Current Medications Miscellaneous Information (* Miscellaneous Pharmacy Order) DURAMORPH: 0.2 MG SPI... GIVEN NEURAXIAL XX ; Start 09/13/18 at 16:30 IV Flush (NS 3 ml) 3 ml PER PROTOCOL IV ; Start 09/13/18 at 17:00 Acetaminophen (Tylenol Supp) 650 mg Q6H PRN [place] Fever; Start 09/13/18 at 17:00 Ondansetron HCl (Zofran Inj) 4 mg Q4H PRN IV NAUSEA AND/OR VOMITING; Start 08/16 05/04 at 17:00 Folic Acid (Folic Acid) 1 mg DAILY PO Last administered on 10/06/18at 08:12; Admin Dose 1 MG; Start 09/14/18 at 09:00 Multivit/Ca Carb/ B Cmplx/FA/Prenat (Flor-Elisa) 1 tab DAILY PO Last administered on 10/06/18at 08:12; Admin Dose 1 TAB; Start 09/14/18 at 09:00 Hydromorphone HCl (Dilaudid) 1 mg Q4H PRN IV SEVERE PAIN LEVEL 7-10 Last administered on 10/04/18at 12:26; Admin Dose 1 MG; Start 09/13/18 at 17:30 Acetaminophen (Tylenol Tab) 650 mg Q6H PRN PO MILD PAIN(1-3)OR ELEVATED TEMP Last administered on 09/17/18at 20:44; Admin Dose 650 MG; Start 09/17/18 at 17:00 Famotidine (Pepcid) 20 mg BID PO Last administered on 10/06/18 08:12; Admin Dose 20 MG; Start 09/23/18 at 21:00 Magnesium Oxide (Mag-Ox 400) 1,200 mg TID PO Last administered on 10/06/18 12:31; Admin Dose 1,200 MG; Start 10/01/18 at 09:00 Calcitriol (Rocaltrol) 0.25 mcg DAILY PO Last administered on 10/06/18 08:11; Admin Dose 0.25 MCG; Start 10/03/18 at 09:00 Amiodarone HCl (Cordarone) 200 mg BID PO Last administered on 10/06/18 08:12; Admin Dose 200 MG; Start 10/04/18 at 21:00 Diltiazem HCl (Cardizem Cd) 240 mg DAILY PO Last administered on 10/06/18 08:12; Admin Dose 240 MG; Start 10/05/18 at 09:00 Apixaban (Eliquis) 5 mg BID PO Last administered on 10/06/18 08:13; Admin Dose 5 MG; Start 10/04/18 at 21:00 Tacrolimus (Prograf) 0.5 mg HS PO Last administered on 10/05/18 21:09; Admin Dose 0.5 MG; Start 10/04/18 at 21:00 Tacrolimus (Prograf) 1 mg DAILY PO Last administered on 10/06/18 08:11; Admin Dose 1 MG; Start 10/05/18 at 09:00 Sodium Chloride 1,000 ml @ 80 mls/hr [id number] IV Last administered on 10/06/18 08:55; Admin Dose 80 MLS/HR; Start 10/05/18 at 08:30 ROSALBA MARTI NP Oct 06, 2018 15:27
--- NOTE | 2018-10-06 15:46 | PN ---
Date/Time of Note Date/Time of Note DATE: 10/06/18 TIME: 15:45 Assessment/Plan VTE Prophylaxis Risk score (from Ns)>0 risk: 5 SCD applied (from Ns): Yes SCD contraindicated: low risk/ambulating Pharmacological prophylaxis: LMWH Lines/Catheters IV Catheter Type (from [facility]): Peripheral IV Urinary Cath still in place: No Assessment/Plan Hospital Course A/P 1. Sepsis, stable resolving. Finish antibiotics 2. Lt TMA infected stump, sp urgent BKA 2. Lt BKA infected stump, sp debridement x2. No active bleed/ pus. cont wound VAC 4. PAD 5. Debility 6. Renal transplant status 2006, stable cont antirejection/ immunosupressive meds, unless infection is failing therapy 7. SSTI/infected cont antibiotics/antifungal 8. Anemia stable observe 9. Hypertension 10. Dyslipidemia 11. SVT stable 12. New onset A. fib, amiodarone until 7 7. Eliquis started 13. Ftt, participating with PT anticipate aru transfer soon S: no distress mild pain. No active bleed. No fever dyspnea. Participating with PT 10/06 no events wound intact no fever dyspnea O: Vss; rate controlled PE No pallor JVD Regular no mrg Clear Benign Lt BKA stump clean dressed intact Result Diagram: 10/06/18 0502 10/06/18 0502 Results 24hrs Laboratory Tests Test 10/06/18 05:02 White Blood Count 6.5 # Red Blood Count 3.30 L Hemoglobin 9.2 L Hematocrit 29.8 L Mean Corpuscular Volume 90.3 Mean Corpuscular Hemoglobin 27.9 L Mean Corpuscular Hemoglobin Concent 30.9 L Red Cell Distribution Width 21.6 H Platelet Count 178 Mean Platelet Volume 10.3 Immature Granulocytes % 1.100 H Neutrophils % 62.5 Lymphocytes % 11.6 L Monocytes % 17.6 H Eosinophils % 6.4 Basophils % 0.8 Nucleated Red Blood Cells % 0.0 Immature Granulocytes # 0.070 H Neutrophils # 4.1 Lymphocytes # 0.8 Monocytes # 1.2 H Eosinophils # 0.4 Basophils # 0.1 Nucleated Red Blood Cells # 0.0 Sodium Level 144 Potassium Level 4.1 Chloride Level 113 H Carbon Dioxide Level 22 Anion Gap 9 Blood Urea Nitrogen 21 H Creatinine 1.60 H Est Glomerular Filtrat Rate mL/min 44 L Glucose Level 125 Calcium Level 9.7 Magnesium Level 1.7 Total Bilirubin 0.3 Direct Bilirubin 0.00 Indirect Bilirubin 0.3 Aspartate Amino Transf (AST/SGOT) 36 Alanine Aminotransferase (ALT/SGPT) 20 Alkaline Phosphatase 93 Total Protein 6.0 L Albumin 2.8 L Globulin 3.20 Albumin/Globulin Ratio 0.87 Exam/Review of Systems Exam Vitals Vital Signs Date Temp Pulse Resp B/P (MAP) Pulse Ox O2 O2 Flow FiO2 Time Delivery Rate 10/06/18 98 13:27 10/06/18 97.6 17 151/77 99 11:17 (101) 10/05/18 Room Air 15:42 Intake and Output 10/05/18 10/05/18 10/06/18 1515:00 23:00 07:00 IntakeIntake Total 240 ml 1140 ml 1030 ml OutputOutput Total 250 ml 200 ml 500 ml BalanceBalance -10 ml 940 ml 530 ml Results Results 24hrs Laboratory Tests Test 10/06/18 05:02 White Blood Count 6.5 # Red Blood Count 3.30 L Hemoglobin 9.2 L Hematocrit 29.8 L Mean Corpuscular Volume 90.3 Mean Corpuscular Hemoglobin 27.9 L Mean Corpuscular Hemoglobin Concent 30.9 L Red Cell Distribution Width 21.6 H Platelet Count 178 Mean Platelet Volume 10.3 Immature Granulocytes % 1.100 H Neutrophils % 62.5 Lymphocytes % 11.6 L Monocytes % 17.6 H Eosinophils % 6.4 Basophils % 0.8 Nucleated Red Blood Cells % 0.0 Immature Granulocytes # 0.070 H Neutrophils # 4.1 Lymphocytes # 0.8 Monocytes # 1.2 H Eosinophils # 0.4 Basophils # 0.1 Nucleated Red Blood Cells # 0.0 Sodium Level 144 Potassium Level 4.1 Chloride Level 113 H Carbon Dioxide Level 22 Anion Gap 9 Blood Urea Nitrogen 21 H Creatinine 1.60 H Est Glomerular Filtrat Rate mL/min 44 L Glucose Level 125 Calcium Level 9.7 Magnesium Level 1.7 Total Bilirubin 0.3 Direct Bilirubin 0.00 Indirect Bilirubin 0.3 Aspartate Amino Transf (AST/SGOT) 36 Alanine Aminotransferase (ALT/SGPT) 20 Alkaline Phosphatase 93 Total Protein 6.0 L Albumin 2.8 L Globulin 3.20 Albumin/Globulin Ratio 0.87 Medications Medication Current Medications Miscellaneous Information (* Miscellaneous Pharmacy Order) DURAMORPH: 0.2 MG SPI... GIVEN NEURAXIAL XX ; Start 09/13/18 at 16:30 IV Flush (NS 3 ml) 3 ml PER PROTOCOL IV ; Start 09/13/18 at 17:00 Acetaminophen (Tylenol Supp) 650 mg Q6H PRN [place] Fever; Start 09/13/18 at 17:00 Ondansetron HCl (Zofran Inj) 4 mg Q4H PRN IV NAUSEA AND/OR VOMITING; Start 09/13/18 at 17:00 Folic Acid (Folic Acid) 1 mg DAILY PO Last administered on 10/06/18 08:12; Admin Dose 1 MG; Start 09/14/18 at 09:00 Multivit/Ca Carb/ B Cmplx/FA/Prenat (Folr-Elisa) 1 tab DAILY PO Last administered on 10/06/18at 08:12; Admin Dose 1 TAB; Start 09/14/18 at 09:00 Hydromorphone HCl (Dilaudid) 1 mg Q4H PRN IV SEVERE PAIN LEVEL 7-10 Last administered on 10/04/18at 12:26; Admin Dose 1 MG; Start 09/13/18 at 17:30 Acetaminophen (Tylenol Tab) 650 mg Q6H PRN PO MILD PAIN(1-3)OR ELEVATED TEMP Last administered on 09/17/18at 20:44; Admin Dose 650 MG; Start 09/17/18 at 17:00 Famotidine (Pepcid) 20 mg BID PO Last administered on 10/06/18 08:12; Admin Dose 20 MG; Start 09/23/18 at 21:00 Magnesium Oxide (Mag-Ox 400) 1,200 mg TID PO Last administered on 10/06/18 12:31; Admin Dose 1,200 MG; Start 10/01/18 at 09:00 Calcitriol (Rocaltrol) 0.25 mcg DAILY PO Last administered on 10/06/18 08:11; Admin Dose 0.25 MCG; Start 10/03/18 at 09:00 Amiodarone HCl (Cordarone) 200 mg BID PO Last administered on 10/06/18 08:12; Admin Dose 200 MG; Start 10/04/18 at 21:00 Diltiazem HCl (Cardizem Cd) 240 mg DAILY PO Last administered on 10/06/18 08:12; Admin Dose 240 MG; Start 10/05/18 at 09:00 Apixaban (Eliquis) 5 mg BID PO Last administered on 10/06/18 08:13; Admin Dose 5 MG; Start 10/04/18 at 21:00 Tacrolimus (Prograf) 0.5 mg HS PO Last administered on 10/05/18 21:09; Admin Dose 0.5 MG; Start 10/04/18 at 21:00 Tacrolimus (Prograf) 1 mg DAILY PO Last administered on 10/06/18 08:11; Admin Dose 1 MG; Start 10/05/18 at 09:00 Sodium Chloride 1,000 ml @ 80 mls/hr [id number] IV Last administered on 10/06/18 08:55; Admin Dose 80 MLS/HR; Start 10/05/18 at 08:30 BRAYDEN JASON MD Oct 06, 2018 15:46
[2018-10-06] MEDS: TACROLIMUS 0.5 MG CAP PO SCH (21:02)
[2018-10-07] VITALS (12 sets, daily range): BP systolic 116–130; BP diastolic 65–79; PULSE 89–106; RESP 16–18
[2018-10-07] MEDS: MAGNESIUM OXIDE 400 MG TAB PO SCH ×3 (08:11→21:35)
[2018-10-07] MEDS: AMIODARONE 200 MG TAB PO SCH ×2 (08:11→21:37)
[2018-10-07] MEDS: CALCITRIOL 0.25 MCG CAP PO SCH (08:12)
[2018-10-07] MEDS: DILTIAZEM (CD) 240 MG CAP PO SCH (08:12)
[2018-10-07] MEDS: FAMOTIDINE 20 MG TAB PO SCH ×2 (08:12→21:37)
[2018-10-07] MEDS: APIXABAN 5 MG TABLET PO SCH ×2 (08:12→21:36)
[2018-10-07] MEDS: TACROLIMUS 1 MG CAP PO SCH (08:12)
[2018-10-07] MEDS: MULTIVIT/CA CARB/B CMPLX/FA TAB PO SCH (08:12)
[2018-10-07] MEDS: FOLIC ACID 1 MG TAB PO SCH (08:13)
--- NOTE | 2018-10-07 08:15 | CONS ---
Assessment/Plan Assessment/Plan Hospital Course (Demo Recall) 1. Kidney transplant status. The patient had a cadaveric kidney transplant in 2006. He is on immunosuppressive therapy. His renal function has been stable. I did speak to the head of the transplant service at [facility] ,Dr.Gav Stephenson about the patient's immunosuppressive drugs. Dr. Giron recommended that we keep his tacrolimus level around 5 for the trough and discontinue the Arava. Dr. Stephenson . Dr Stephenson does not think that the immunosuppressive's are delaying wound healing. I have discontinued Arava and adjusted the tacrolimus dose. His serum creatinine was 1.6 mg/dL yesterday and is down to 1.3 mg/dL today the amphotericin was held yesterday because of the sudden rise in serum creatinine. Will check labs in a.m. 2. 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 His left foot was infected and gangrenous. He now has a L stump that is draining dark bloody purulent material . He underwent a third surgery last week. The left stump wound was opened, drained, debrided and washed out twice. Dr. Cortes was unable to close the wound. He still has a drain going to a wound VAC. He continues to have a wound infection. The last cultures were growing Bacteroides fragilis and a yeast. He is on antibiotics. 3. Hypertension 4. Peripheral artery disease 5. Anemia , is improving 6. Hyperlipidemia. 7. Hypomagnesemia, I suspect he is loosing magnesium through kidney . I have started him on an oral magnesium supplement and I have had to increase the dose because of continued low serum magnesium level. I will give him a dose of IV magnesium today because of the low serum magnesium. 8. Hypokalemia. Potassium is back to normal and he is now off potassium supplements. Consultation Date/Type/Reason Admit Date/Time September 13, 2018 at 11:48 Initial Consult Date 09/13/18 Type of Consult Nephrology Requesting Provider: DOMINIQUE BURGESS NP Date/Time of Note DATE: 10/07/18 TIME: 08:10 24 HR Interval Summary Free Text/Dictation This patient is being seen in nephrologic follow-up. He has a kidney tr ansplant. His serum creatinine went up to 1.6 yesterday. His amphotericin was discontinued because of the sudden rise in serum creatinine. He is awake and alert today without complaints. Constitutional: no complaints, improved Exam/Review of Systems Exam Vitals Vital Signs Date Temp Pulse Resp B/P (MAP) Pulse Ox O2 O2 Flow FiO2 Time Delivery Rate 10/07/18 97.7 90 18 127/69 99 07:30 (88) 10/05/18 Room Air 15:42 Intake and Output 10/06/18 10/06/18 10/07/18 1515:00 23:00 07:00 IntakeIntake Total 640 ml 1150 ml 650 ml OutputOutput Total 300 ml 350 ml BalanceBalance 640 ml 850 ml 300 ml Exam Left leg is status post a below the knee amputation. Slow healing and infection. Constitutional: alert, oriented, frail Respiratory: clear to auscultation, normal air movement Cardiovascular: regular rate and rhythm Gastrointestinal: soft, non-tender Results Result Diagram: 10/07/18 0515 10/07/18 0505 Results 24hrs Laboratory Tests Test 10/07/18 05:05 10/07/18 05:15 Sodium Level 139 Potassium Level 4.9 Chloride Level 113 H Carbon Dioxide Level 20 L Anion Gap 6 Blood Urea Nitrogen 23 H Creatinine 1.31 H Est Glomerular Filtrat Rate mL/min 56 L Glucose Level 146 Calcium Level 9.7 Total Bilirubin 0.4 Direct Bilirubin 0.00 Indirect Bilirubin 0.4 Aspartate Amino Transf (AST/SGOT) 52 H Alanine Aminotransferase (ALT/SGPT) 19 Alkaline Phosphatase 87 Total Protein 6.3 Albumin 2.9 L Globulin 3.40 H Albumin/Globulin Ratio 0.85 White Blood Count 5.8 Red Blood Count 3.34 L Hemoglobin 9.3 L Hematocrit 30.3 L Mean Corpuscular Volume 90.7 Mean Corpuscular Hemoglobin 27.8 L Mean Corpuscular Hemoglobin Concent 30.7 L Red Cell Distribution Width 21.5 H Platelet Count 137 #L Mean Platelet Volume 11.0 H Immature Granulocytes % 0.700 H Neutrophils % 59.8 Lymphocytes % 14.2 L Monocytes % 16.6 H Eosinophils % 7.7 H Basophils % 1.0 Nucleated Red Blood Cells % 0.0 Immature Granulocytes # 0.040 H Neutrophils # 3.5 Lymphocytes # 0.8 Monocytes # 1.0 H Eosinophils # 0.5 Basophils # 0.1 Nucleated Red Blood Cells # 0.0 Magnesium Level 1.8 Medications Medication Current Medications Miscellaneous Information (* Miscellaneous Pharmacy Order) DURAMORPH: 0.2 MG SPI... GIVEN NEURAXIAL XX ; Start 09/13/18 at 16:30 IV Flush (NS 3 ml) 3 ml PER PROTOCOL IV ; Start 09/13/18 at 17:00 Acetaminophen (Tylenol Supp) 650 mg Q6H PRN [place] Fever; Start 09/13/18 at 17:00 Ondansetron HCl (Zofran Inj) 4 mg Q4H PRN IV NAUSEA AND/OR VOMITING; Start 09/13/18 at 17:00 Folic Acid (Folic Acid) 1 mg DAILY PO Last administered on 10/06/18 08:12; Admin Dose 1 MG; Start 09/14/18 at 09:00 Multivit/Ca Carb/ B Cmplx/FA/Prenat (Flor-Elisa) 1 tab DAILY PO Last administe red on 10/06/18 08:12; Admin Dose 1 TAB; Start 09/14/18 at 09:00 Hydromorphone HCl (Dilaudid) 1 mg Q4H PRN IV SEVERE PAIN LEVEL 7-10 Last administered on 10/04/18at 12:26; Admin Dose 1 MG; Start 09/13/18 at 17:30 Acetaminophen (Tylenol Tab) 650 mg Q6H PRN PO MILD PAIN(1-3)OR ELEVATED TEMP Last administered on 09/17/18at 20:44; Admin Dose 650 MG; Start 09/17/18 at 17:00 Famotidine (Pepcid) 20 mg BID PO Last administered on 10/06/18 21:03; Admin Dose 20 MG; Start 09/23/18 at 21:00 Magnesium Oxide (Mag-Ox 400) 1,200 mg TID PO Last administered on 10/06/18 21:03; Admin Dose 1,200 MG; Start 10/01/18 at 09:00 Calcitriol (Rocaltrol) 0.25 mcg DAILY PO Last administered on 10/06/18 08:11; Admin Dose 0.25 MCG; Start 10/03/18 at 09:00 Amiodarone HCl (Cordarone) 200 mg BID PO Last administered on 10/06/18 21:03; Admin Dose 200 MG; Start 10/04/18 at 21:00 Diltiazem HCl (Cardizem Cd) 240 mg DAILY PO Last administered on 10/06/18 08:12; Admin Dose 240 MG; Start 10/05/18 at 09:00 Tacrolimus (Prograf) 0.5 mg HS PO Last administered on 10/06/18 21:02; Admin Dose 0.5 MG; Start 10/04/18 at 21:00 Tacrolimus (Prograf) 1 mg DAILY PO Last administered on 10/06/18 08:11; Admin Dose 1 MG; Start 10/05/18 at 09:00 Sodium Chloride 1,000 ml @ 80 mls/hr [id number] IV Last administered on 10/06/18 22:43; Admin Dose 80 MLS/HR; Start 10/05/18 at 08:30 Apixaban (Eliquis) 2.5 mg BID PO Last administered on 10/06/18 21:02; Admin Dose 2.5 MG; Start 10/06/18 at 21:00 ERIN MONTOYA MD Oct 07, 2018 08:15
[2018-10-07] MEDS: SOD CHLORIDE 0.9% 1,000 ML IV SCH ×2 (09:36→23:00)
--- NOTE | 2018-10-07 17:15 | PN ---
Date/Time of Note Date/Time of Note DATE: 10/07/18 TIME: 17:13 Assessment/Plan VTE Prophylaxis Risk score (from Ns)>0 risk: 6 SCD applied (from Ns): Yes SCD contraindicated: low risk/ambulating Pharmacological prophylaxis: LMWH Pharm contraindication: low risk/ambulating Lines/Catheters IV [facility]ter [facility]from [facility] Peripheral IV Urinary Cath still in place: No Assessment/Plan Hospital Course A/P 1. Sepsis, stable resolving. Finish antibiotics/ antifungal. 2. Lt TMA infected stump, sp urgent BKA 2. Lt BKA infected stump, sp debridement x2. No active pus. cont wound VAC. oozing blood? 4. PAD 5. Debility 6. Renal transplant status 2006, stable cont antirejection/ immunosupressive meds, unless infection is failing therapy 7. SSTI/infected cont antibiotics/antifungal 8. Anemia stable observe 9. Hypertension 10. Dyslipidemia 11. SVT stable 12. New onset A. fib, amiodarone until 7 7. Eliquis started 13. Ftt, participating with PT anticipate aru transfer soon S: no distress mild pain. No active bleed. No fever dyspnea. Participating with PT 10/06 no events wound intact no fever dyspnea. Creatinine worse 10/07: No events/ fever. Creatinine better. Transfer to [facility] tomorrow if ok with nephrology. O: Vss; rate controlled PE No pallor JVD Regular no mrg Clear Benign Lt BKA stump c/d/i Result Diagram: 10/07/18 0515 10/07/18 0505 Results 24hrs Laboratory Tests Test 10/07/18 05:05 10/07/18 05:15 Sodium Level 139 Potassium Level 4.9 Chloride Level 113 H Carbon Dioxide Level 20 L Anion Gap 6 Blood Urea Nitrogen 23 H Creatinine 1.31 H Est Glomerular Filtrat Rate mL/min 56 L Glucose Level 146 Calcium Level 9.7 Total Bilirubin 0.4 Direct Bilirubin 0.00 Indirect Bilirubin 0.4 Aspartate Amino Transf (AST/SGOT) 52 H Alanine Aminotransferase (ALT/SGPT) 19 Alkaline Phosphatase 87 Total Protein 6.3 Albumin 2.9 L Globulin 3.40 H Albumin/Globulin Ratio 0.85 White Blood Count 5.8 Red Blood Count 3.34 L Hemoglobin 9.3 L Hematocrit 30.3 L Mean Corpuscular Volume 90.7 Mean Corpuscular Hemoglobin 27.8 L Mean Corpuscular Hemoglobin Concent 30.7 L Red Cell Distribution Width 21.5 H Platelet Count 137 #L Mean Platelet Volume 11.0 H Immature Granulocytes % 0.700 H Neutrophils % 59.8 Lymphocytes % 14.2 L Monocytes % 16.6 H Eosinophils % 7.7 H Basophils % 1.0 Nucleated Red Blood Cells % 0.0 Immature Granulocytes # 0.040 H Neutrophils # 3.5 Lymphocytes # 0.8 Monocytes # 1.0 H Eosinophils # 0.5 Basophils # 0.1 Nucleated Red Blood Cells # 0.0 Magnesium Level 1.8 Exam/Review of Systems Exam Vitals Vital Signs Date Temp Pulse Resp B/P (MAP) Pulse Ox O2 O2 Flow FiO2 Time Delivery Rate 10/07/18 92 16:00 10/07/18 97.7 18 130/79 100 15:37 (96) 10/05/18 Room Air 15:42 Intake and Output 10/06/18 10/06/18 10/07/18 1515:00 23:00 07:00 IntakeIntake Total 640 ml 1150 ml 650 ml OutputOutput Total 300 ml 350 ml BalanceBalance 640 ml 850 ml 300 ml Results Results 24hrs Laboratory Tests Test 10/07/18 05:05 10/07/18 05:15 Sodium Level 139 Potassium Level 4.9 Chloride Level 113 H Carbon Dioxide Level 20 L Anion Gap 6 Blood Urea Nitrogen 23 H Creatinine 1.31 H Est Glomerular Filtrat Rate mL/min 56 L Glucose Level 146 Calcium Level 9.7 Total Bilirubin 0.4 Direct Bilirubin 0.00 Indirect Bilirubin 0.4 Aspartate Amino Transf (AST/SGOT) 52 H Alanine Aminotransferase (ALT/SGPT) 19 Alkaline Phosphatase 87 Total Protein 6.3 Albumin 2.9 L Globulin 3.40 H Albumin/Globulin Ratio 0.85 White Blood Count 5.8 Red Blood Count 3.34 L Hemoglobin 9.3 L Hematocrit 30.3 L Mean Corpuscular Volume 90.7 Mean Corpuscular Hemoglobin 27.8 L Mean Corpuscular Hemoglobin Concent 30.7 L Red Cell Distribution Width 21.5 H Platelet Count 137 #L Mean Platelet Volume 11.0 H Immature Granulocytes % 0.700 H Neutrophils % 59.8 Lymphocytes % 14.2 L Monocytes % 16.6 H Eosinophils % 7.7 H Basophils % 1.0 Nucleated Red Blood Cells % 0.0 Immature Granulocytes # 0.040 H Neutrophils # 3.5 Lymphocytes # 0.8 Monocytes # 1.0 H Eosinophils # 0.5 Basophils # 0.1 Nucleated Red Blood Cells # 0.0 Magnesium Level 1.8 Medications Medication Current Medications Miscellaneous Information (* Miscellaneous Pharmacy Order) DURAMORPH: 0.2 MG SPI... GIVEN NEURAXIAL XX ; Start 09/13/18 at 16:30 IV Flush (NS 3 ml) 3 ml PER PROTOCOL IV ; Start 09/13/18 at 17:00 Acetaminophen (Tylenol Supp) 650 mg Q6H PRN [place] Fever; Start 09/13/18 at 17:00 Ondansetron HCl (Zofran Inj) 4 mg Q4H PRN IV NAUSEA AND/OR VOMITING; Start 09/13/18 at 17:00 Folic Acid (Folic Acid) 1 mg DAILY PO Last administered on 10/07/18 08:13; Admin Dose 1 MG; Start 09/14/18 at 09:00 Multivit/Ca Carb/ B Cmplx/FA/Prenat (Flor-Elisa) 1 tab DAILY PO Last administered on 10/07/18 08:12; Admin Dose 1 TAB; Start 09/14/18 at 09:00 Hydromorphone HCl (Dilaudid) 1 mg Q4H PRN IV SEVERE PAIN LEVEL 7-10 Last administered on 10/04/18at 12:26; Admin Dose 1 MG; Start 09/13/18 at 17:30 Acetaminophen (Tylenol Tab) 650 mg Q6H PRN PO MILD PAIN(1-3)OR ELEVATED TEMP Last administered on 09/17/18at 20:44; Admin Dose 650 MG; Start 09/17/18 at 17:00 Famotidine (Pepcid) 20 mg BID PO Last administered on 10/07/18 08:12; Admin Dose 20 MG; Start 09/23/18 at 21:00 Magnesium Oxide (Mag-Ox 400) 1,200 mg TID PO Last administered on 10/07/18 12:01; Admin Dose 1,200 MG; Start 10/01/18 at 09:00 Calcitriol (Rocaltrol) 0.25 mcg DAILY PO Last administered on 10/07/18 08:12; Admin Dose 0.25 MCG; Start 10/03/18 at 09:00 Amiodarone HCl (Cordarone) 200 mg BID PO Last administered on 10/07/18 08:11; Admin Dose 200 MG; Start 10/04/18 at 21:00 Diltiazem HCl (Cardizem Cd) 240 mg DAILY PO Last administered on 10/07/18 08:12; Admin Dose 240 MG; Start 10/05/18 at 09:00 Tacrolimus (Prograf) 0.5 mg HS PO Last administered on 10/06/18 21:02; Admin Dose 0.5 MG; Start 10/04/18 at 21:00 Tacrolimus (Prograf) 1 mg DAILY PO Last administered on 10/07/18 08:12; Admin Dose 1 MG; Start 10/05/18 at 09:00 Sodium Chloride 1,000 ml @ 80 mls/hr [id number] IV Last administered on 10/07/18 09:36; Admin Dose 80 MLS/HR; Start 10/05/18 at 08:30 Apixaban (Eliquis) 2.5 mg BID PO Last administered on 10/07/18 08:12; Admin Dose 2.5 MG; Start 10/06/18 at 21:00 BRAYDEN JASON MD Oct 07, 2018 17:15
--- NOTE | 2018-10-07 20:46 | CONS ---
Assessment/Plan Assessment/Plan Hospital Course (Demo Recall) # sepsis, muskuloskeletal, derm - s/p sepsis due infected left BKA stump - infected L BKA stump site - s/p further revision of L BKA site and wound vac placement on 10/02/2018. Path showed gangrenous necrosis of skin and subcutaneous tissue, fibrous connective tissue and skeletal muscle tissue with focal necrosis, segment of bone with no evidence of osteomyelitis - s/p exploration and washout, debridement and VAC placement left infected below knee amputation stump on 09/19/2018; Wound culture grew Bacteroides Fragilis on 09/18/2018; Intraop culture grew coag neg staph and Bacteroides Fragilis on 09/19/18. CoNS is a likely colonizer; Fungal culture 09/19/18 grew A. versicolor group, submitted reference lab for sensitivity; path negative for malignancy. Pt took levofloxacin and metronidazole (09/17/2018-10/04/2018) - s/p L BKA on 09/13/2018 - h/o draining wound, necrosis and infection of L TMA site. ESR 121 on 09/12/2018. # renal, cardiac - h/o renal transplant at [facility] in 2006, maintained on tacrolimus - immunocompromised status - hypomagnesemia - repleted - A fib with RVR, converted to SR - hypertension # other conditions - expected post-op anemia - transaminitis - improving - adverse reaction to cefazolin (hives), meropenem (pruritus) Pt previously took aztreonam (09/13/2018-09/24/2018) recommendations: - the fungal culture from 09/19/2018 grew A. versicolor group, I requested its sensitivity on 10/02/2018 (Nena at micro lab) - Pt's aspergillus could be a colonizer of the wound; however, Pt's immunocompromised and I favor its treatment x 10 days: Ambisome (10/02/2018-) with premedication with PO benadryl and normal saline - if his Cr increases again, I may stop it before 10 days - if possible, I'd like his immunosupression be reduced to prevent Pt from having chronic wound infections. This is my recommendation as outpatient once he is released management d/w Pt, Dr. Olmstead Consultation Date/Type/Reason Admit Date/Time September 13, 2018 at 11:48 Initial Consult Date 09/13/18 Type of Consult ID Requesting Provider: DOMINIQUE BURGESS NP Date/Time of Note DATE: 10/07/18 TIME: 20:38 Exam/Review of Systems Exam Vitals Vital Signs Date Temp Pulse Resp B/P (MAP) Pulse Ox O2 O2 Flow FiO2 Time Delivery Rate 10/07/18 90 20:00 10/07/18 97.7 16 116/78 98 19:25 (91) 10/05/18 Room Air 15:42 Intake and Output 10/06/18 10/06/18 10/07/18 1515:00 23:00 07:00 IntakeIntake Total 640 ml 1150 ml 650 ml OutputOutput Total 300 ml 350 ml BalanceBalance 640 ml 850 ml 300 ml Results Result Diagram: 10/07/18 0515 10/07/18 0505 Results 24hrs Laboratory Tests Test 10/07/18 05:05 10/07/18 05:15 Sodium Level 139 Potassium Level 4.9 Chloride Level 113 H Carbon Dioxide Level 20 L Anion Gap 6 Blood Urea Nitrogen 23 H Creatinine 1.31 H Est Glomerular Filtrat Rate mL/min 56 L Glucose Level 146 Calcium Level 9.7 Total Bilirubin 0.4 Direct Bilirubin 0.00 Indirect Bilirubin 0.4 Aspartate Amino Transf (AST/SGOT) 52 H Alanine Aminotransferase (ALT/SGPT) 19 Alkaline Phosphatase 87 Total Protein 6.3 Albumin 2.9 L Globulin 3.40 H Albumin/Globulin Ratio 0.85 White Blood Count 5.8 Red Blood Count 3.34 L Hemoglobin 9.3 L Hematocrit 30.3 L Mean Corpuscular Volume 90.7 Mean Corpuscular Hemoglobin 27.8 L Mean Corpuscular Hemoglobin Concent 30.7 L Red Cell Distribution Width 21.5 H Platelet Count 137 #L Mean Platelet Volume 11.0 H Immature Granulocytes % 0.700 H Neutrophils % 59.8 Lymphocytes % 14.2 L Monocytes % 16.6 H Eosinophils % 7.7 H Basophils % 1.0 Nucleated Red Blood Cells % 0.0 Immature Granulocytes # 0.040 H Neutrophils # 3.5 Lymphocytes # 0.8 Monocytes # 1.0 H Eosinophils # 0.5 Basophils # 0.1 Nucleated Red Blood Cells # 0.0 Magnesium Level 1.8 Medications Medication Current Medications Miscellaneous Information (* Miscellaneous Pharmacy Order) DURAMORPH: 0.2 MG SPI... GIVEN NEURAXIAL XX ; Start 09/13/18 at 16:30 IV Flush (NS 3 ml) 3 ml PER PROTOCOL IV ; Start 09/13/18 at 17:00 Acetaminophen (Tylenol Supp) 650 mg Q6H PRN [place] Fever; Start 09/13/18 at 17:00 Ondansetron HCl (Zofran Inj) 4 mg Q4H PRN IV NAUSEA AND/OR VOMITING; Start 09/13/18 at 17:00 Folic Acid (Folic Acid) 1 mg DAILY PO Last administered on 10/07/18 08:13; Admin Dose 1 MG; Start 09/14/18 at 09:00 Multivit/Ca Carb/ B Cmplx/FA/Prenat (Flor-Elisa) 1 tab DAILY PO Last administered on 10/07/18 08:12; Admin Dose 1 TAB; Start 09/14/18 at 09:00 Hydromorphone HCl (Dilaudid) 1 mg Q4H PRN IV SEVERE PAIN LEVEL 7-10 Last administered on 10/04/18 12:26; Admin Dose 1 MG; Start 09/13/18 at 17:30 Acetaminophen (Tylenol Tab) 650 mg Q6H PRN PO MILD PAIN(1-3)OR ELEVATED TEMP Last administered on 09/17/18 20:44; Admin Dose 650 MG; Start 09/17/18 at 17:00 Famotidine (Pepcid) 20 mg BID PO Last administered on 10/07/18 08:12; Admin Dose 20 MG; Start 09/23/18 at 21:00 Magnesium Oxide (Mag-Ox 400) 1,200 mg TID PO Last administered on 10/07/18 12:01; Admin Dose 1,200 MG; Start 10/01/18 at 09:00 Calcitriol (Rocaltrol) 0.25 mcg DAILY PO Last administered on 10/07/18 08:12; Admin Dose 0.25 MCG; Start 10/03/18 at 09:00 Amiodarone HCl (Cordarone) 200 mg BID PO Last administered on 10/07/18 08:11; Admin Dose 200 MG; Start 10/04/18 at 21:00 Diltiazem HCl (Cardizem Cd) 240 mg DAILY PO Last administered on 10/07/18 08:12; Admin Dose 240 MG; Start 10/05/18 at 09:00 Tacrolimus (Prograf) 0.5 mg HS PO Last administered on 10/06/18at 21:02; Admin Dose 0.5 MG; Start 10/04/18 at 21:00 Tacrolimus (Prograf) 1 mg DAILY PO Last administered on 10/07/18at 08:12; Admin Dose 1 MG; Start 10/05/18 at 09:00 Sodium Chloride 1,000 ml @ 80 mls/hr [id number] IV Last administered on 10/07/18at 09:36; Admin Dose 80 MLS/HR; Start 10/05/18 at 08:30 Apixaban (Eliquis) 2.5 mg BID PO Last administered on 10/07/18 08:12; Admin Dose 2.5 MG; Start 10/06/18 at 21:00 CLARE IRBY M.D. Oct 07, 2018 20:46
[2018-10-07] MEDS: TACROLIMUS 0.5 MG CAP PO SCH (21:35)
[2018-10-08] VITALS (9 sets, daily range): BP systolic 101–144; BP diastolic 67–90; PULSE 77–104; RESP 16–18
[2018-10-08] MEDS ORDERED: LIDOCAINE 1% (MPF) 5 ML VIAL SC ONE (01:30)
[2018-10-08] MEDS ORDERED: METOPROLOL 25 MG TAB PO ONE (02:30)
--- NOTE | 2018-10-08 08:34 | CONS ---
Assessment/Plan Assessment/Plan Hospital Course (Demo Recall) 1. Kidney transplant status. The patient had a cadaveric kidney transplant in 2006. He is on immunosuppressive therapy. His renal function has decreased from baseline. I did speak to the head of the transplant service at [facility] ,Dr.Gav Stephenson about the patient's immunosuppressive drugs. Dr. Stephenson recommended that we keep his tacrolimus level around 5 for the trough and discontinue the Arava. . Dr Stephenson does not think that the immunosuppressive's are delaying wound healing. I have discontinued Arava and adjusted the tacrolimus dose. His serum creatinine was 1.6 mg/dL 2 days ago and is down to 1.44 mg/dL today . the amphotericin was held because of the sudden rise in serum creatinine. Will check labs in a.m. 2. 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 His left foot was infected and gangrenous. He underwent a third surgery last week. The left stump wound was opened, drained, debrided and washed out twice. Dr. Cortes was unable to close the wound. He still has a drain going to a wound VAC. He continues to have a wound infection. The last cultures were growing Bacteroides fragilis and a yeast. He is on antibiotics. 3. Hypertension 4. Peripheral artery disease 5. Anemia , is improving 6. Hyperlipidemia. 7. Hypomagnesemia, I suspect he is loosing magnesium through kidney . I have started him on an oral magnesium supplement . Magnesium level is back to normal 8. Hypokalemia. Potassium is back to normal and he is now off potassium supplements. Consultation Date/Type/Reason Admit Date/Time September 13, 2018 at 11:48 Initial Consult Date 09/13/18 Type of Consult Nephrology Requesting Provider: DOMINIQUE BURGESS NP Date/Time of Note DATE: 10/08/18 TIME: 08:29 24 HR Interval Summary Free Text/Dictation This patient is being seen in nephrologic follow-up. He is awake and alert. He has no new complaints. Constitutional: no complaints, improved Exam/Review of Systems Exam Vitals Vital Signs Date Temp Pulse Resp B/P (MAP) Pulse Ox O2 O2 Flow FiO2 Time Delivery Rate 10/08/18 90 08:17 10/08/18 98.0 17 128/83 95 07:29 (98) 10/05/18 Room Air 15:42 Intake and Output 10/07/18 10/07/18 10/08/18 1515:00 23:00 07:00 IntakeIntake Total 1810 ml 500 ml OutputOutput Total 900 ml BalanceBalance 910 ml 500 ml Exam His left leg is status post a below the knee amputation. Constitutional: alert, oriented, frail Respiratory: clear to auscultation, normal air movement Cardiovascular: regular rate and rhythm Gastrointestinal: soft, non-tender Results Result Diagram: 10/08/18 0531 10/08/18 0531 Results 24hrs Laboratory Tests Test 10/08/18 05:31 White Blood Count 6.9 Red Blood Count 3.55 L Hemoglobin 9.7 L Hematocrit 31.7 L Mean Corpuscular Volume 89.3 Mean Corpuscular Hemoglobin 27.3 L Mean Corpuscular Hemoglobin Concent 30.6 L Red Cell Distribution Width 21.4 H Platelet Count 189 # Mean Platelet Volume 10.6 H Immature Granulocytes % 0.700 H Neutrophils % 61.6 Lymphocytes % 13.4 L Monocytes % 17.0 H Eosinophils % 6.6 Basophils % 0.7 Nucleated Red Blood Cells % 0.0 Immature Granulocytes # 0.050 H Neutrophils # 4.3 Lymphocytes # 0.9 Monocytes # 1.2 H Eosinophils # 0.5 Basophils # 0.1 Nucleated Red Blood Cells # 0.0 Sodium Level 140 Potassium Level 4.3 Chloride Level 110 Carbon Dioxide Level 24 Anion Gap 6 Blood Urea Nitrogen 27 H Creatinine 1.44 H Est Glomerular Filtrat Rate mL/min 50 L Glucose Level 84 # Calcium Level 10.3 H Phosphorus Level 2.4 L Magnesium Level 2.0 Total Bilirubin 0.3 Direct Bilirubin 0.00 Indirect Bilirubin 0.3 Aspartate Amino Transf (AST/SGOT) 44 Alanine Aminotransferase (ALT/SGPT) 25 Alkaline Phosphatase 119 Total Protein 6.1 Albumin 3.0 L Globulin 3.10 Albumin/Globulin Ratio 0.96 Medications Medication Current Medications Miscellaneous Information (* Miscellaneous Pharmacy Order) DURAMORPH: 0.2 MG SPI... GIVEN NEURAXIAL XX ; Start 09/13/18 at 16:30 IV Flush (NS 3 ml) 3 ml PER PROTOCOL IV ; Start 09/13/18 at 17:00 Acetaminophen (Tylenol Supp) 650 mg Q6H PRN [place] Fever; Start 09/13/18 at 17:00 Ondansetron HCl (Zofran Inj) 4 mg Q4H PRN IV NAUSEA AND/OR VOMITING; Start 09/13/18 at 17:00 Folic Acid (Folic Acid) 1 mg DAILY PO Last administered on 10/07/18 08:13; Admin Dose 1 MG; Start 09/14/18 at 09:00 Multivit/Ca Carb/ B Cmplx/FA/Prenat (Flor-Elisa) 1 tab DAILY PO Last administered on 10/07/18 08:12; Admin Dose 1 TAB; Start 09/14/18 at 09:00 Hydromorphone HCl (Dilaudid) 1 mg Q4H PRN IV SEVERE PAIN LEVEL 7-10 Last administered on 10/04/18 12:26; Admin Dose 1 MG; Start 09/13/18 at 17:30 Acetaminophen (Tylenol Tab) 650 mg Q6H PRN PO MILD PAIN(1-3)OR ELEVATED TEMP Last administered on 09/17/18 20:44; Admin Dose 650 MG; Start 09/17/18 at 17:00 Famotidine (Pepcid) 20 mg BID PO Last administered on 10/07/18 21:37; Admin Dose 20 MG; Start 09/23/18 at 21:00 Magnesium Oxide (Mag-Ox 400) 1,200 mg TID PO Last administered on 10/07/18 21:35; Admin Dose 1,200 MG; Start 10/01/18 at 09:00 Calcitriol (Rocaltrol) 0.25 mcg DAILY PO Last administered on 10/07/18 08:12; Admin Dose 0.25 MCG; Start 10/03/18 at 09:00 Amiodarone HCl (Cordarone) 200 mg BID PO Last administered on 10/07/18 21:37; Admin Dose 200 MG; Start 10/04/18 at 21:00 Diltiazem HCl (Cardizem Cd) 240 mg DAILY PO Last administered on 10/07/18 08:12; Admin Dose 240 MG; Start 10/05/18 at 09:00 Tacrolimus (Prograf) 0.5 mg HS PO Last administered on 10/07/18 21:35; Admin Dose 0.5 MG; Start 10/04/18 at 21:00 Tacrolimus (Prograf) 1 mg DAILY PO Last administered on 10/07/18 08:12; Admin Dose 1 MG; Start 10/05/18 at 09:00 Sodium Chloride 1,000 ml @ 80 mls/hr [id number] IV Last administered on 10/07/18 09:36; Admin Dose 80 MLS/HR; Start 10/05/18 at 08:30 Apixaban (Eliquis) 2.5 mg BID PO Last administered on 10/07/18 21:36; Admin Dose 2.5 MG; Start 10/06/18 at 21:00 ERIN MONTOYA MD Oct 08, 2018 08:34
[2018-10-08] MEDS: MULTIVIT/CA CARB/B CMPLX/FA TAB PO SCH (08:52)
[2018-10-08] MEDS: FOLIC ACID 1 MG TAB PO SCH (08:52)
[2018-10-08] MEDS: CALCITRIOL 0.25 MCG CAP PO SCH (08:52)
[2018-10-08] MEDS: DILTIAZEM (CD) 240 MG CAP PO SCH (08:53)
[2018-10-08] MEDS: TACROLIMUS 1 MG CAP PO SCH (08:53)
[2018-10-08] MEDS: MAGNESIUM OXIDE 400 MG TAB PO SCH ×2 (08:53→12:16)
[2018-10-08] MEDS: AMIODARONE 200 MG TAB PO SCH (08:54)
[2018-10-08] MEDS: APIXABAN 5 MG TABLET PO SCH (08:54)
[2018-10-08] MEDS: FAMOTIDINE 20 MG TAB PO SCH (08:54)
[2018-10-08] MEDS: HYDROmorphONE 1 MG/ML SYG IV PRN (11:21)
[2018-10-08] MEDS ORDERED: AMIO200T4 PO (11:37)
[2018-10-08] MEDS ORDERED: DILT240C79 PO (11:37)
[2018-10-08] MEDS ORDERED: APIX5TAB PO (11:37)
[2018-10-08] MEDS ORDERED: CALC0.2511 PO (11:37)
[2018-10-08] MEDS ORDERED: TACR1CAP26 PO (11:37)
--- NOTE | 2018-10-08 11:38 | PDOCDIS ---
Discharge Instructions DIAGNOSIS Discharge Diagnosis 1. Sepsis 2. Lt TMA infected stump, sp urgent BKA 2. Lt BKA infected stump, sp debridement x2. 4. PAD 5. Debility 6. Renal transplant status 2006 7. SSTI/infected cont antibiotics/antifungal 8. Anemia 9. Hypertension 10. Dyslipidemia 11. SVT stable 12. New onset A. fib, CONDITION [id number] Patient Condition: [id number] Stable HOME CARE INSTRUCTIONS: [id number] Diet Instructions: [id number] Low Fat /Cholesterol FOLLOW UP/APPOINTMENTS Follow-up Plan 1. Further care and management per acute rehab unit CORY ANDREW NP Oct 08, 2018 11:38
--- NOTE | 2018-10-08 11:44 | DS ---
Date/Time of Note Date/Time of Note DATE: 10/08/18 TIME: 11:44 Discharge Summary Admission/Discharge Info Admit Date/Time September 13, 2018 at 11:48 Discharge Date/Time Discharge Diagnosis 1. Sepsis 2. Lt TMA infected stump, sp urgent BKA 2. Lt BKA infected stump, sp debridement x2. 4. PAD 5. Debility 6. Renal transplant status 2006 7. SSTI/infected cont antibiotics/antifungal 8. Anemia 9. Hypertension 10. Dyslipidemia 11. SVT stable 12. New onset A. fib, Patient Condition: Stable Hospital Course This is a 58-year-old male with history of hypertension, hyperlipidemia, CKD status post renal transplant in 2007, severe peripheral vascular disease, extensive left foot gangrene, right transmetatarsal imitation at [place] because of extremity gangrene and infection of left foot. Patient was seen by our vascular surgeon Dr. Cortes due to extensive left lower extremity arterial disease. He underwent angiogram outpatient showing complete occlusion of the left peroneal and tibial arteries. He was starting on antibiotic with no improvement. Of note patient's TMA stump became more necrotic with foul- smelling drainage and his foot was no longer salvageable. Patient did undergo left BKA advised to return hospital on September 13, 2018. Status post surgery patient was found to be septic. He did have left him an infected stump and was placed on appropriate antibiotics. He also received debridement x2. We did have the patient seen by wound consult and wound VAC was placed with the patient. He did have of note revision on October 02, 2018. He was also started on Eliquis. No significant bleeding was noted. Patient during his stay to improve. During his stay he did have SVT secondary to A. fib with RVR. Cardiology did see the patient and he was placed on amiodarone and diltiazem with good response. Again he was also resumed on Eliquis. His leukocytosis did improve with antibiotics.. He was otherwise optimized medically with statin for PVD. Her nut orchardist did consult patient's specialists from [facility] [place] who did help us with managing his immunosuppressants for his history of renal transplant. He was resumed on statins for hyperlipidemia we did correct his electrolytes as needed. After discussion with the patient was plan for patient to go to acute rehab unit for further management and care. Plan of care was discussed with the patient and patient verbalizes understanding. On the day of discharge patient was in stable condition Discussed POC with Dr. Eric Exeter Meds Active Scripts Tacrolimus* (Prograf*) 1 Mg Capsule, 1 MG PO DAILY, #30 CAP Prov:DOROTHEADANIELLEADRIANA MartinezCORY SCARFER 10/08/18 Calcitriol* (Calcitriol*) 0.25 Mcg Capsule, 0.25 MCG PO DAILY, #60 CAP Prov:REGIDOJuanCORY SCARFER 10/08/18 Apixaban* (Eliquis*) 5 Mg Tablet, 2.5 MG PO BID, #60 TAB Prov:REGIDORCORY SCARFER 10/08/18 Diltiazem Hcl* (Cardizem CD*) 240 Mg Cap.sr.24h, 240 MG PO DAILY, #30 TAB Prov:REGRADHACORY SCARFER 10/08/18 Amiodarone Hcl* (Amiodarone Hcl*) 200 Mg Tablet, 200 MG PO BID for 30 Days, TAB Prov:REGIDOJuanCORY SCARFER 10/08/18 Reported Medications Multivit/Ca Carb/B Cmplx/Fa* (Flor-Elisa*) 1 Tab Tab, 1 TAB PO DAILY, TAB 09/13/18 Folic Acid* (Folic Acid*) 1 Mg Tablet, 1 MG PO DAILY, TAB 09/13/18 Discontinued Reported Medications Calcitriol* (Calcitriol*) 0.5 Mcg Capsule, 0.5 MCG PO TID, CAP 09/13/18 Leflunomide* (Leflunomide*) 20 Mg Tablet, 20 MG PO BID, #30 TAB 09/13/18 Tacrolimus* (Tacrolimus*) 1 Mg Capsule, 1 MG PO TID, CAP 09/13/18 Phosphorus #1 (Phospha 250 Neutral Tablet) 250 Mg Tablet, 1000 MG PO BID, TAB 09/13/18 Iron Polysaccharides Complex (Ferrex 150) 150 Mg Capsule, 150 MG PO BID, #30 CAP 09/13/18 Nifedipine* (Nifedipine ER*) 30 Mg Tablet.sa, 30 MG PO DAILY, TAB.SA 09/13/18 Leflunomide* (Arava*) 20 Mg Tablet, 20 MG PO BID, TAB 09/13/18 Pravastatin Sodium* (Pravastatin Sodium*) 20 Mg Tablet, 20 MG PO HS, TAB 09/13/18 Clopidogrel Bisulfate (Clopidogrel) 75 Mg Tablet, 75 MG PO DAILY, #30 TAB 09/13/18 Labetalol Hcl* (Labetalol Hcl*) 100 Mg Tablet, 100 MG PO BID, TAB 09/13/18 Follow-up Plan 1. Further care and management per acute rehab unit Primary Care Provider Not On Staff Doctor Time spent on discharge: > 30 minutes Pending Labs Laboratory Tests Test 10/08/18 05:31 White Blood Count 6.9 10^3/ul (4.8-10.8) Red Blood Count 3.55 10^6/ul (4.70-6.10) Hemoglobin 9.7 g/dl (14.0-18.0) Hematocrit 31.7 % (42.0-52.0) Mean Corpuscular Volume 89.3 fl (82.0-101.0) Mean Corpuscular Hemoglobin 27.3 pg (29.0-33.0) Mean Corpuscular Hemoglobin Concent 30.6 g/dl (32.0-37.0) Red Cell Distribution Width 21.4 % (11.5-14.5) Platelet Count 189 10^3/UL (140-415) Mean Platelet Volume 10.6 fl (7.4-10.4) Immature Granulocytes % 0.700 % (0.001-0.429) Neutrophils % 61.6 % (39.0-77.0) Lymphocytes % 13.4 % (15.0-51.0) Monocytes % 17.0 % (0.0-11.0) Eosinophils % 6.6 % (0.0-7.0) Basophils % 0.7 % (0.0-2.0) Nucleated Red Blood Cells % 0.0 /100WBC (0.0-0.0) Immature Granulocytes # 0.050 10^3/ul (0.0-0.031) Neutrophils # 4.3 10^3/ul (1.6-7.5) Lymphocytes # 0.9 10^3/ul (0.8-2.9) Monocytes # 1.2 10^3/ul (0.3-0.9) Eosinophils # 0.5 10^3/ul (0.0-0.5) Basophils # 0.1 10^3/ul (0.0-0.1) Nucleated Red Blood Cells # 0.0 10^3/ul (0.0-0.0) Sodium Level 140 mmol/L (135-144) Potassium Level 4.3 mmol/L (3.5-5.1) Chloride Level 110 mmol/L (97-110) Carbon Dioxide Level 24 mmol/L (21-31) Anion Gap 6 (5-13) Blood Urea Nitrogen 27 mg/dl (7-20) Creatinine 1.44 mg/dl (0.61-1.24) Est Glomerular Filtrat Rate mL/min 50 mL/min (>60) Glucose Level 84 mg/dl (70-220) Calcium Level 10.3 mg/dl (8.4-10.2) Phosphorus Level 2.4 mg/dl (2.5-4.9) Magnesium Level 2.0 mg/dl (1.7-2.5) Total Bilirubin 0.3 mg/dl (0.2-1.3) Direct Bilirubin 0.00 mg/dl (0.00-0.20) Indirect Bilirubin 0.3 mg/dl (0-1.1) Aspartate Amino Transf (AST/SGOT) 44 IU/L (15-46) Alanine Aminotransferase (ALT/SGPT) 25 IU/L (13-69) Alkaline Phosphatase 119 IU/L (42-121) Total Protein 6.1 g/dl (6.1-8.1) Albumin 3.0 g/dl (3.3-4.9) Globulin 3.10 g/dl (1.3-3.2) Albumin/Globulin Ratio 0.96 CORY ANDREW NP Oct 08, 2018 11:44
== END 2018-10-08 16:20 | DRG 474 ==
LOC: REC 11:48 → ICU 16:17 → TEL 09-14 12:20 → 6WM 09-14 13:34
PROVIDERS: ADMIT Internal Medicine; ATTEND Internal Medicine
PROC: 0Y6J0Z2 Detachment at Left Lower Leg, Mid, Open Approach (ICD-10-PCS; principal; 2018-09-13 13:00)
PROC: 0LBP0ZZ Excision of Left Lower Leg Tendon, Open Approach (ICD-10-PCS; 2018-09-19)
PROC: 0Y6J0Z2 Detachment at Left Lower Leg, Mid, Open Approach (ICD-10-PCS; 2018-10-02)
DX: T87.44 Infection of amputation stump, left lower extremity (principal); A41.9 Sepsis, unspecified organism; Z94.0 Kidney transplant status; I70.262 Atherosclerosis of native arteries of extremities with gangrene, left leg; E87.2 Acidosis; I47.1 Supraventricular tachycardia; N17.9 Acute kidney failure, unspecified; I12.9 Hypertensive chronic kidney disease with stage 1 through stage 4 chronic kidney disease, or unspecified chronic kidney disease; N18.9 Chronic kidney disease, unspecified; E78.5 Hyperlipidemia, unspecified; D63.1 Anemia in chronic kidney disease; I95.9 Hypotension, unspecified; Z89.432 Acquired absence of left foot; T36.1X5A Adverse effect of cephalosporins and other beta-lactam antibiotics, initial encounter; E83.42 Hypomagnesemia; T87.40 Infection of amputation stump, unspecified extremity; Y83.8 Other surgical procedures as the cause of abnormal reaction of the patient, or of later complication, without mention of misadventure at the time of the procedure; D64.9 Anemia, unspecified; I48.91 Unspecified atrial fibrillation; E87.6 Hypokalemia; I25.5 Ischemic cardiomyopathy
CPT/HCPCS: 71045; 80048; 80053; 80061; 80197; 80202; 81001; 81003; 82306; 82728; 82962; 83036; 83540; 83605; 83735; 83970; 84100; 84145; 84155; 84443; 85025; 85610; 85651; 85730; 86140; 86850; 86900; 86901; 87070; 87075; 87081; 87086; 87102; 87116; 88304; 88305; 88307; 88311; 93005; 93306; 97110; 97116; 97161; 97530; 97542; J0153; J0282; J0289; J0360; J1170; J1200; J1650; J1956; J2175; J2185; J2250; J2274; J2370; J3010; J3370; J3475; J3480; J7030; J7040; J7050; J7060; J7507; P9045

== ENCOUNTER 2018-10-08 13:20 | Inpatient (IN) | payer OTHER ==
[~2018-10-08] VITALS: Ht 157.5 cm; Wt 56.2 kg
[~2018-10-08 13:20] MED LIST changes: +AMIO200T4 PO; +APIX5TAB PO; +CALC0.2511 PO; +CALC0.5C10 PO; +CLOP75TA27 PO; +DILT240C79 PO; +FOLI-49 PO; +IRON150C5 PO; +LABE100T7 PO; +LEFL20TA PO; +LEFL20TA18 PO; +NEPH PO; +NIFE30TA23 PO; +PHOS250T2 PO; -POTASSIUM CHLORIDE 20 MEQ/SW 100 ML IVPB ONE; +PRAV20TA63 PO; +TACR1CAP PO; +TACR1CAP26 PO
[2018-10-08 16:40] VITALS: BP 117/70; PULSE 80; RESP 18
[2018-10-08] MEDS ORDERED: ACETAMINOPHEN 325 MG TAB PO PRN (17:00)
[2018-10-08] MEDS ORDERED: MAGNESIUM HYDROXIDE 30ML CUP PO PRN (17:00)
[2018-10-08] MEDS ORDERED: PENDING SANTYL ORDER FOR WOUND CARE XX PRN (17:00)
--- NOTE | 2018-10-08 20:22 | CONS ---
Assessment/Plan Assessment/Plan Hospital Course (Demo Recall) # sepsis, muskuloskeletal, derm - h/o sepsis due infected left BKA stump - h/o infected L BKA stump site - h/o further revision of L BKA site and wound vac placement on 10/02/2018. Path showed gangrenous necrosis of skin and subcutaneous tissue, fibrous connective tissue and skeletal muscle tissue with focal necrosis, segment of bone with no evidence of osteomyelitis - h/o exploration and washout, debridement and VAC placement to L infected BKA site on 09/19/2018; The superficial wound culture grew B. fragilis on 09/18/2018; the intra-operative culture grew coag neg staph and B. fragilis on 09/19/18. CoNS was a likely colonizer; Pt took levofloxacin and metronidazole (09/17/2018- 10/04/2018) for these. The intra-operative fungal culture on 09/19/18 grew A. versicolor group, submitted reference lab for sensitivity; Pt took ambisome (10/02/2018-10/06/2018); the path was negative for malignancy. - h/o L BKA on 09/13/2018 - h/o draining wound, necrosis and infection of L TMA site. ESR 121 on 09/12/2018. # renal, cardiac - h/o renal transplant at [facility] [place] in 2006, maintained on tacrolimus - h/o immunocompromised status - A fib with RVR, converted to SR - hypertension # other conditions - h/o transaminitis - adverse reaction to cefazolin (hives), meropenem (pruritus) recommendations: - monitor the wound closely off antibiotics - if Pt develops signs of recurrent infection, will collect cultures for bacteria and fungi - if possible, I'd like his immunosupression be reduced to prevent Pt from having chronic wound infections and ultimately prevent Pt from having to undergo amputation as a result chronic infection. This is my recommendation as outpatient once he is released management d/w Pt, his significant other by bedside and RN Consultation Date/Type/Reason Admit Date/Time Oct 08, 2018 at 16:11 Date of Consultation: Oct 08, 2018 Type of Consult ID Reason for Consultation h/o chronic infection of wounds Requesting Provider: [facility] GAY [facility] Date/Time of Note DATE: 10/08/18 TIME: 19:45 Hx of Present Illness This is a 58 yo male with h/o kidney transplant who was transferred to rehab today after a prolonged stay at [facility] after L BKA, its revision and wound care. Prior to that Pt had chronic gangrene and infection of L foot requiring TMA. Subsequently angiogram identified severe tibial disease of LLE. The stump site of L TMA was not healing; it became necrotic and draining. Pt was given a trial of PO Augmentin but the limb appeared non-salvageable. As a result Pt underwent L BKA on 09/13/2018. He was in ICU immediately post-op as he had fever and hypotension. At that point GROUTER HELPER Alexus requested ID consultation by us. Pt underwent exploration and washout, debridement and VAC placement to L infected BKA stump on 09/19/2018. The superficial wound culture grew B. fragilis on 09/18/2018 while the intra-operative culture grew coag neg staph and B. Fragilis on 09/19/18. CoNS was a likely colonizer. Pt took levofloxacin and metronidazole (09/17/2018-10/04/2018) for these. The intra-operative fungal culture on 09/19/2018 grew A. versicolor group, whose specimen was submitted to the reference lab for sensitivity. On 10/02/2018 Pt underwent further revision of L BKA site and wound vac placement. Path showed gangrenous necrosis of skin and subcutaneous tissue, fibrous connective tissue and skeletal muscle tissue with focal necrosis, segment of bone with no evidence of osteomyelitis. There was a question of whether the A. versicolor group was a clinically significant mold or an environmental colonizer. Wound infections due to aspergillus among solid organ recipients are reported in the medical literature. I discussed the intra- operative finding with Dr. Cortes on 10/02/2018. Evidence of superficial necrosis was found. Therefore I opted to treat it albeit for a short term. The antifungal of choice for aspergillus is voriconazole, but it potently interacts with tacrolimus, and its level must be adjusted. [facility] does not have an inhouse assay for tacrolimus level and so tacrolimus cannot be dosed in a timely manner. This is a safety concern. Ambisome was started in combination with premedication for this Pt on 10/02/2018. On 10/06/2018, it was discontinued by Dr. Curran as Cr level increased. Today Pt was transferred to the rehab. I continue to follow this Pt because he requires close monitoring of the wound and its infection. Constitutional: no complaints Eyes: no complaints ENT: no complaints Respiratory: no complaints Cardiovascular: no complaints Gastrointestinal: no complaints Genitourinary: no complaints Musculoskeletal: bone/joint pain (at the time of wound VAC change), restricted range of motion Skin: no complaints Neurologic: no complaints Past Medical History Medical History: hypertension, renal disease, other (h/o renal transplant) Home Meds Active Scripts Tacrolimus* (Prograf*) 1 Mg Capsule, 1 MG PO DAILY, #30 CAP Prov:CORY ANDREW NP 10/08/18 Calcitriol* (Calcitriol*) 0.25 Mcg Capsule, 0.25 MCG PO DAILY, #60 CAP Prov:CORY ANDREW NP 10/08/18 Apixaban* (Eliquis*) 5 Mg Tablet, 2.5 MG PO BID, #60 TAB Prov:REGCORY GARCIA NP 10/08/18 Diltiazem Hcl* (Cardizem CD*) 240 Mg Cap.sr.24h, 240 MG PO DAILY, #30 TAB Prov:CORY ANDREW NP 10/08/18 Amiodarone Hcl* (Amiodarone Hcl*) 200 Mg Tablet, 200 MG PO BID for 30 Days, TAB Prov:CORY ANDREW NP 10/08/18 Reported Medications Multivit/Ca Carb/B Cmplx/Fa* (Flor-Elisa*) 1 Tab Tab, 1 TAB PO DAILY, TAB 09/13/18 Folic Acid* (Folic Acid*) 1 Mg Tablet, 1 MG PO DAILY, TAB 09/13/18 Discontinued Reported Medications Calcitriol* (Calcitriol*) 0.5 Mcg Capsule, 0.5 MCG PO TID, CAP 09/13/18 Leflunomide* (Leflunomide*) 20 Mg Tablet, 20 MG PO BID, #30 TAB 09/13/18 Tacrolimus* (Tacrolimus*) 1 Mg Capsule, 1 MG PO TID, CAP 09/13/18 Phosphorus #1 (Phospha 250 Neutral Tablet) 250 Mg Tablet, 1000 MG PO BID, TAB 09/13/18 Iron Polysaccharides Complex (Ferrex 150) 150 Mg Capsule, 150 MG PO BID, #30 CAP 09/13/18 Nifedipine* (Nifedipine ER*) 30 Mg Tablet.sa, 30 MG PO DAILY, TAB.SA 09/13/18 Leflunomide* (Arava*) 20 Mg Tablet, 20 MG PO BID, TAB 09/13/18 Pravastatin Sodium* (Pravastatin Sodium*) 20 Mg Tablet, 20 MG PO HS, TAB 09/13/18 Clopidogrel Bisulfate (Clopidogrel) 75 Mg Tablet, 75 MG PO DAILY, #30 TAB 09/13/18 Labetalol Hcl* (Labetalol Hcl*) 100 Mg Tablet, 100 MG PO BID, TAB 09/13/18 Medications Current Medications Miscellaneous Information (Pending Santyl Order For Wound Care) This patient yi... PRN PRN XX WOUND CARE; Start 10/08/18 at 17:00 Acetaminophen (Tylenol Tab) 650 mg Q6H PRN PO MILD PAIN(1-3)OR ELEVATED TEMP; Start 10/08/18 at 17:00 Amiodarone HCl (Cordarone) 200 mg BID PO ; Start 10/08/18 at 21:00 Apixaban (Eliquis) 2.5 mg BID PO ; Start 10/08/18 at 21:00 Calcitriol (Rocaltrol) 0.25 mcg DAILY PO ; Start 10/09/18 at 09:00 Diltiazem HCl (Cardizem Cd) 240 mg DAILY PO ; Start 10/09/18 at 09:00 Folic Acid (Folic Acid) 1 mg DAILY PO ; Start 10/09/18 at 09:00 Famotidine (Pepcid) 20 mg BID PO ; Start 10/08/18 at 21:00 Hydromorphone HCl (Dilaudid) 1 mg Q4H PRN IV SEVERE PAIN LEVEL 7-10; Start 10/08/18 at 17:00 Magnesium Oxide (Mag-Ox 400) 1,200 mg TID PO ; Start 10/08/18 at 21:00 Multivit/Ca Carb/ B Cmplx/FA/Prenat (Flor-Elisa) 1 tab DAILY PO ; Start 10/09/18 at 09:00 Tacrolimus (Prograf) 0.5 mg HS PO ; Start 10/08/18 at 21:00 Tacrolimus (Prograf) 1 mg DAILY PO ; Start 10/09/18 at 09:00 Magnesium Hydroxide (Milk Of Mag) 30 ml DAILY PRN PO CONSTIPATION; Start 10/08/18 at 17:00 Docusate Sodium (Colace) 100 mg DAILY PO ; Start 10/09/18 at 09:00 Allergies: Coded Allergies: cefazolin (Verified Allergy, Intermediate, HIVES, 10/04/18) meropenem (Verified Allergy, Intermediate, 10/04/18) pruritus (observed on 09/13/2018) Past Surgical History Past Surgical Hx: other (renal transplant, L TMA, L BKA, followed by revision and wound VAC application) Social History Alcohol Use: none Smoking Status: Former smoker Drug Use: none Exam/Review of Systems Exam Vitals Vital Signs Date Temp Pulse Resp B/P (MAP) Pulse Ox O2 O2 Flow FiO2 Time Delivery Rate 10/08/18 97.7 80 18 117/70 96 Room Air 16:40 (86) Constitutional: alert, oriented, well developed Psych: no complaints, nl mood/affect Head: normocephalic, atraumatic Eyes: nl conjunctiva, nl lids ENMT: nl external ears & nose, nl nasal mucosa & septum Neck: supple Respiratory: clear to auscultation, normal air movement Cardiovascular: regular rate and rhythm, nl pulses, other (+AVF on b/l UEs); No edema Gastrointestinal: soft, non-tender; No distended Musculoskeletal: other (s/p L BKA, wound VAC in place) Extremities: No edema 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: SPEECH LANGUAGE PATHOLOGIST TRAVEL II-XII intact, nl mental status, nl speech Skin: nl turgor Results Results 24hrs Laboratory Tests Test 10/08/18 16:30 Urine Color YELLOW Urine Clarity CLEAR Urine pH 6.0 Urine Specific [place] 1.010 Urine Ketones NEGATIVE Urine Nitrite NEGATIVE Urine Bilirubin NEGATIVE Urine Urobilinogen NEGATIVE Urine Leukocyte Esterase NEGATIVE Urine Hemoglobin NEGATIVE Urine Glucose NEGATIVE Urine Total Protein NEGATIVE Medications Medication Current Medications Miscellaneous Information (Pending Santyl Order For Wound Care) This patient yi... PRN PRN XX WOUND CARE; Start 10/08/18 at 17:00 Acetaminophen (Tylenol Tab) 650 mg Q6H PRN PO MILD PAIN(1-3)OR ELEVATED TEMP; Start 10/08/18 at 17:00 Amiodarone HCl (Cordarone) 200 mg BID PO ; Start 10/08/18 at 21:00 Apixaban (Eliquis) 2.5 mg BID PO ; Start 6/25/19 at 21:00 Calcitriol (Rocaltrol) 0.25 mcg DAILY PO ; Start 10/09/18 at 09:00 Diltiazem HCl (Cardizem Cd) 240 mg DAILY PO ; Start 10/09/18 at 09:00 Folic Acid (Folic Acid) 1 mg DAILY PO ; Start 10/09/18 at 09:00 Famotidine (Pepcid) 20 mg BID PO ; Start 10/08/18 at 21:00 Hydromorphone HCl (Dilaudid) 1 mg Q4H PRN IV SEVERE PAIN LEVEL 7-10; Start 10/08/18 at 17:00 Magnesium Oxide (Mag-Ox 400) 1,200 mg TID PO ; Start 10/08/18 at 21:00 Multivit/Ca Carb/ B Cmplx/FA/Prenat (Flor-Elisa) 1 tab DAILY PO ; Start 10/09/18 at 09:00 Tacrolimus (Prograf) 0.5 mg HS PO ; Start 10/08/18 at 21:00 Tacrolimus (Prograf) 1 mg DAILY PO ; Start 10/09/18 at 09:00 Magnesium Hydroxide (Milk Of Mag) 30 ml DAILY PRN PO CONSTIPATION; Start 10/08/18 at 17:00 Docusate Sodium (Colace) 100 mg DAILY PO ; Start 10/09/18 at 09:00 CLARE IRBY M.D. Oct 08, 2018 19:56
[2018-10-08] MEDS: MAGNESIUM OXIDE 400 MG TAB PO SCH (20:25)
[2018-10-08] MEDS: TACROLIMUS 0.5 MG CAP PO SCH (20:25)
[2018-10-08] MEDS: APIXABAN 5 MG TABLET PO SCH (20:26)
[2018-10-08] MEDS: FAMOTIDINE 20 MG TAB PO SCH (20:26)
[2018-10-08] MEDS: AMIODARONE 200 MG TAB PO SCH (20:29)
[2018-10-08 21:28] VITALS: BP 121/74; PULSE 79; RESP 18
[2018-10-09 03:45] VITALS: BP 138/76; PULSE 83; RESP 18
[2018-10-09 07:00] VITALS: BP 135/73; PULSE 76; RESP 18
[2018-10-09] MEDS ORDERED: TACROLIMUS 1 MG CAP PO SCH (09:00)
[2018-10-09] MEDS: DILTIAZEM (CD) 240 MG CAP PO SCH (09:31)
[2018-10-09] MEDS: MULTIVIT/CA CARB/B CMPLX/FA TAB PO SCH (09:32)
[2018-10-09] MEDS: FAMOTIDINE 20 MG TAB PO SCH ×2 (09:32→20:54)
[2018-10-09] MEDS: DOCUSATE SODIUM 100 MG CAP PO SCH (09:32)
[2018-10-09] MEDS: APIXABAN 5 MG TABLET PO SCH ×2 (09:32→20:54)
[2018-10-09] MEDS: FOLIC ACID 1 MG TAB PO SCH (09:32)
[2018-10-09] MEDS: AMIODARONE 200 MG TAB PO SCH ×2 (09:32→20:56)
[2018-10-09] MEDS: MAGNESIUM OXIDE 400 MG TAB PO SCH ×3 (09:33→20:53)
[2018-10-09] MEDS: CALCITRIOL 0.25 MCG CAP PO SCH (09:33)
--- NOTE | 2018-10-09 10:57 | HP ---
Date/Time of Note Date/Time of Note DATE: 10/09/18 TIME: 10:32 Assessment/Plan VTE Prophylaxis Risk score (from Ns)>0 risk: 7 SCD applied (from Ns): No SCD contraindicated: other Pharmacological prophylaxis: apixaban Lines/Catheters IV C[facility]ter Type (from [facility] Saline Lock Urinary Cath still in place: No Assessment/Plan Hospital Course SUBJECTIVE: Sitting up in chair. No acute distress. OBJECTIVE: Vital signs-see below PHYSICAL EXAM: Constitutional: Adequately built,not in acute distress. HEENT: Head atraumatic and normocephalic. Eyes: Extraocular muscles intact. Anicteric sclerae. Pupils equal bilaterally, reactive to light. NECK: Supple without lymph node. CHEST: Clear and good breath sounds equally. No wheezing. No rhonchi. HEART: S1, S2. Regular rate and rhythm. ABDOMEN: Soft/non tender with no rebound tenderness. Bowel sounds were present. EXTREMITIES: L BKA stump/dressing c/d/i. No cyanosis, clubbing or edema. NEUROLOGIC: Alert and oriented x3. No focal deficit. No sensory deficit. PSYCHOSOCIAL: No signs of depression. INTEGUMENTARY: No open wounds. ASSESSMENT AND PLAN: Severe left peripheral artery disease with infected left TMA stump- stable - s/p Urgent left below-knee amputation on 09/13/2018 with washout. Further revision on 10/02. - on Eliquis - Antibiotics as per ID A. fib -s/p cards review-> Continue on amiodarone until 10/20, 1 month tx. continue on diltiazem -cont ATC Sepsis with leukocytosis, febrile illness, and lactic acidosis secondary to lower extremity infection- resolving - remains afebrile and nl WBC - wound culture results noted - ID on board for antibiotic recommendations Peripheral vascular disease. - Continue statins History of renal transplant. - nephrology on board and appreciate recommendations. - avoiding nephrotoxic agents - continue immunosuppressants Normocytic anemia - stable HLD - on statin DVT Prophylaxis: Eliquis Approximately 60-minute was spent on this history and physical. Patient was seen in collaboration with Dr. Landaverde Result Diagram: 10/09/18 0644 10/09/18 0644 Results 24hrs Laboratory Tests Test 10/08/18 16:30 10/09/18 06:44 Urine Color YELLOW Urine Clarity CLEAR Urine pH 6.0 Urine Specific [place] 1.010 Urine Ketones NEGATIVE Urine Nitrite NEGATIVE Urine Bilirubin NEGATIVE Urine Urobilinogen NEGATIVE Urine Leukocyte Esterase NEGATIVE Urine Hemoglobin NEGATIVE Urine Glucose NEGATIVE Urine Total Protein NEGATIVE White Blood Count 5.1 # Red Blood Count 3.89 L Hemoglobin 10.6 L Hematocrit 33.8 L Mean Corpuscular Volume 86.9 Mean Corpuscular Hemoglobin 27.2 L Mean Corpuscular Hemoglobin Concent 31.4 L Red Cell Distribution Width 21.3 H Platelet Count 186 Mean Platelet Volume 11.1 H Immature Granulocytes % 1.000 H Neutrophils % 60.3 Lymphocytes % 15.6 Monocytes % 15.4 H Eosinophils % 6.7 Basophils % 1.0 Nucleated Red Blood Cells % 0.0 Immature Granulocytes # 0.050 H Neutrophils # 3.1 Lymphocytes # 0.8 Monocytes # 0.8 Eosinophils # 0.3 Basophils # 0.1 Nucleated Red Blood Cells # 0.0 Sodium Level 140 Potassium Level 4.3 Chloride Level 111 H Carbon Dioxide Level 23 Anion Gap 6 Blood Urea Nitrogen 26 H Creatinine 1.56 H Est Glomerular Filtrat Rate mL/min 46 L Glucose Level 98 Calcium Level 10.5 H Total Bilirubin 0.5 Direct Bilirubin 0.00 Indirect Bilirubin 0.5 Aspartate Amino Transf (AST/SGOT) 65 H Alanine Aminotransferase (ALT/SGPT) 25 Alkaline Phosphatase 141 H Total Protein 7.1 # Albumin 3.4 Globulin 3.70 H Albumin/Globulin Ratio 0.91 HPI/ROS Admit Date/Time Admit Date/Time Oct 08, 2018 at 16:11 Hx of Present Illness This is a 58-year-old male with a history of hypertension, hyperlipidemia, ESRD, status post renal transplant in 2018 on immunosuppression, severe peripheral vascular disease with left foot gangrene, status post TMA, who was admitted at [facility] on 09/13/2018 with TMA stump site infection not salvageable for urgent LBKA. Patient underwent left BKA on 09/13/2018. Postoperative course was noted for severe sepsis with necrotizing LBKA stump infection failed with antimicrobial therapy, requiring multiple debridement with wound VAC placement. He was continued on anticoagulation. As per the records also was noted for cardiac arrhythmias with A. fib RVR for which patient had cardiology evaluation and started on amiodarone and Cardizem with rate control. Patient was continued on anticoagulation. He was being followed by infectious disease team and sepsis started to improve. Patient was being followed by supervisor blasting for underlying kidney transplant status receiving immunosuppression. Patient did well overall. Patient was then evaluated by physical therapist who recommended transfer to acute rehabilitation unit for further rehabilitation. At my encounter with the patient, patient denies chest pain, palpitation, headache, numbness, tingling, loss of consciousness, nausea, vomiting, abdominal pain, fever, chills, pain on left BKA stump.Labs w/ hemoglobin 10.6, hematocrit 33.8, BUN 26, creatinine 1.56. Stable vital signs ROS 12 point review of system was assessed and is negative other than what is mentioned in HPI. PMH/Family/Social Past Medical History See HPI Medical History: hypertension, renal disease, other (h/o renal transplant) Medications Current Medications Miscellaneous Information (Pending [facility] Order For Wound Care) This patient yi... PRN PRN XX WOUND CARE; Start 10/08/18 at 17:00 Acetaminophen (Tylenol Tab) 650 mg Q6H PRN PO MILD PAIN(1-3)OR ELEVATED TEMP; Start 10/08/18 at 17:00 Amiodarone HCl (Cordarone) 200 mg BID PO Last administered on 10/09/18 09:32; Admin Dose 200 MG; Start 10/08/18 at 21:00 Apixaban (Eliquis) 2.5 mg BID PO Last administered on 10/09/18 09:32; Admin Dose 2.5 MG; Start 10/08/18 at 21:00 Calcitriol (Rocaltrol) 0.25 mcg DAILY PO Last administered on 10/09/18 09:33; Admin Dose 0.25 MCG; Start 10/09/18 at 09:00 Diltiazem HCl (Cardizem Cd) 240 mg DAILY PO Last administered on 10/09/18 09:31; Admin Dose 240 MG; Start 10/09/18 at 09:00 Folic Acid (Folic Acid) 1 mg DAILY PO Last administered on 10/09/18 09:32; Admin Dose 1 MG; Start 10/09/18 at 09:00 Famotidine (Pepcid) 20 mg BID PO Last administered on 10/09/18 09:32; Admin Dose 20 MG; Start 10/08/18 at 21:00 Hydromorphone HCl (Dilaudid) 1 mg Q4H PRN IV SEVERE PAIN LEVEL 7-10; Start 10/08/18 at 17:00 Magnesium Oxide (Mag-Ox 400) 1,200 mg TID PO Last administered on 10/09/18at 09:33; Admin Dose 1,200 MG; Start 10/08/18 at 21:00 Multivit/Ca Carb/ B Cmplx/FA/Prenat (Flor-Elisa) 1 tab DAILY PO Last administered on 10/09/18at 09:32; Admin Dose 1 TAB; Start 10/09/18 at 09:00 Tacrolimus (Prograf) 0.5 mg HS PO Last administered on 10/08/18at 20:25; Admin Dose 0.5 MG; Start 10/08/18 at 21:00 Tacrolimus (Prograf) 1 mg DAILY PO Last administered on 10/09/18at 09:32; Admin Dose 1 MG; Start 10/09/18 at 09:00 Magnesium Hydroxide (Milk Of Mag) 30 ml DAILY PRN PO CONSTIPATION; Start 10/08/18 at 17:00 Docusate Sodium (Colace) 100 mg DAILY PO Last administered on 10/09/18at 09:32; Admin Dose 100 MG; Start 10/09/18 at 09:00 Coded Allergies: cefazolin (Verified Allergy, Intermediate, HIVES, 10/04/18) meropenem (Verified Allergy, Intermediate, 10/04/18) pruritus (observed on 09/13/2018) Past Surgical History See HPI Past Surgical Hx: other (renal transplant, L TMA, L BKA, followed by revision and wound VAC application) Social History Former smoker Alcohol Use: none Smoking Status: Former smoker Drug Use: none Exam/Review of Systems Vital Signs Vitals Vital Signs Date Temp Pulse Resp B/P (MAP) Pulse Ox O2 O2 Flow FiO2 Time Delivery Rate 10/09/18 97.4 76 18 135/73 99 Room Air 07:00 (93) Intake and Output 10/08/18 10/08/18 10/09/18 1515:00 23:00 07:00 IntakeIntake Total 440 ml OutputOutput Total 300 ml 550 ml BalanceBalance 140 ml -550 ml WILTON ACKERMAN NP Oct 09, 2018 10:42
--- NOTE | 2018-10-09 13:33 | CONS ---
Assessment/Plan Assessment/Plan Hospital Course (Demo Recall) # sepsis, muskuloskeletal, derm - h/o sepsis due infected left BKA stump - h/o infected L BKA stump site - h/o further revision of L BKA site and wound vac placement on 10/02/2018. Path showed gangrenous necrosis of skin and subcutaneous tissue, fibrous connective tissue and skeletal muscle tissue with focal necrosis, segment of bone with no evidence of osteomyelitis - h/o exploration and washout, debridement and VAC placement to L infected BKA site on 09/19/2018; The superficial wound culture grew B. fragilis on 09/18/2018; the intra-operative culture grew coag neg staph and B. fragilis on 09/19/18. CoNS was a likely colonizer; Pt took levofloxacin and metronidazole (09/17/2018- 10/04/2018) for these. The intra-operative fungal culture on 09/19/18 grew A. versicolor group, submitted reference lab for sensitivity; Pt took ambisome (10/02/2018-10/06/2018); the path was negative for malignancy. - h/o L BKA on 09/13/2018 - h/o draining wound, necrosis and infection of L TMA site. ESR 121 on 2018. # renal, cardiac - h/o renal transplant at [facility] in 2006, maintained on tacrolimus - h/o immunocompromised status - A fib with RVR, converted to SR - hypertension # other conditions - h/o transaminitis - adverse reaction to cefazolin (hives), meropenem (pruritus) recommendations: - monitor the wound closely off antibiotics - I requested that Pt's RN take pictures of the wound at the next wound VAC change - if there is a concern of recurrent infection, I will collect both bacterial and fungal culture. - if possible, I'd like his immunosupression be reduced to prevent Pt from having chronic wound infections and ultimately prevent Pt from having to undergo amputation as a result chronic infection. This is my recommendation as outpatient once he is released management d/w Pt, his RN Consultation Date/Type/Reason Admit Date/Time Oct 08, 2018 at 16:11 Initial Consult Date 10/08/18 Type of Consult ID Requesting Provider: FITO GAY MD[facility] Date/Time of Note DATE: 10/09/18 TIME: 13:30 24 HR Interval Summary Constitutional: improved Detailed Summary Eyes: no complaints ENT: no complaints Respiratory: no complaints Cardiovascular: no complaints Gastrointestinal: no complaints Genitourinary: other (incontinent) Musculoskeletal: no complaints Skin: no complaints Neurologic: no complaints Exam/Review of Systems Exam Vitals Vital Signs Date Temp Pulse Resp B/P (MAP) Pulse Ox O2 O2 Flow FiO2 Time Delivery Rate 10/09/18 97.4 76 18 135/73 99 Room Air 07:00 (93) Intake and Output 10/08/18 10/08/18 10/09/18 1515:00 23:00 07:00 IntakeIntake Total 440 ml OutputOutput Total 300 ml 550 ml BalanceBalance 140 ml -550 ml Constitutional: alert, oriented, well developed Psych: no complaints, nl mood/affect Head: normocephalic, atraumatic Eyes: nl conjunctiva, nl lids, nl sclera ENMT: nl external ears & nose, nl nasal mucosa & septum, mucosa pink and moist Neck: supple; No non-tender Respiratory: diminished breath sounds Cardiovascular: regular rate and rhythm, nl pulses Gastrointestinal: soft, non-tender; No tender Musculoskeletal: other (s/p L BKA, wound VAC+) Extremities: No edema 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 II-XII intact, nl mental status, nl speech Skin: nl turgor; No rash or lesions Results Result Diagram: 10/09/18 0644 10/09/18 0644 Results 24hrs Laboratory Tests Test 10/08/18 16:30 10/09/18 06:44 Urine Color YELLOW Urine Clarity CLEAR Urine pH 6.0 Urine Specific [place] 1.010 Urine Ketones NEGATIVE Urine Nitrite NEGATIVE Urine Bilirubin NEGATIVE Urine Urobilinogen NEGATIVE Urine Leukocyte Esterase NEGATIVE Urine Hemoglobin NEGATIVE Urine Glucose NEGATIVE Urine Total Protein NEGATIVE White Blood Count 5.1 # Red Blood Count 3.89 L Hemoglobin 10.6 L Hematocrit 33.8 L Mean Corpuscular Volume 86.9 Mean Corpuscular Hemoglobin 27.2 L Mean Corpuscular Hemoglobin Concent 31.4 L Red Cell Distribution Width 21.3 H Platelet Count 186 Mean Platelet Volume 11.1 H Immature Granulocytes % 1.000 H Neutrophils % 60.3 Lymphocytes % 15.6 Monocytes % 15.4 H Eosinophils % 6.7 Basophils % 1.0 Nucleated Red Blood Cells % 0.0 Immature Granulocytes # 0.050 H Neutrophils # 3.1 Lymphocytes # 0.8 Monocytes # 0.8 Eosinophils # 0.3 Basophils # 0.1 Nucleated Red Blood Cells # 0.0 Sodium Level 140 Potassium Level 4.3 Chloride Level 111 H Carbon Dioxide Level 23 Anion Gap 6 Blood Urea Nitrogen 26 H Creatinine 1.56 H Est Glomerular Filtrat Rate mL/min 46 L Glucose Level 98 Calcium Level 10.5 H Total Bilirubin 0.5 Direct Bilirubin 0.00 Indirect Bilirubin 0.5 Aspartate Amino Transf (AST/SGOT) 65 H Alanine Aminotransferase (ALT/SGPT) 25 Alkaline Phosphatase 141 H Total Protein 7.1 # Albumin 3.4 Globulin 3.70 H Albumin/Globulin Ratio 0.91 Medications Medication Current Medications Miscellaneous Information (Pending [facility] Order For Wound Care) This patient yi... PRN PRN XX WOUND CARE; Start 10/08/18 at 17:00 Acetaminophen (Tylenol Tab) 650 mg Q6H PRN PO MILD PAIN(1-3)OR ELEVATED TEMP; Start 10/08/18 at 17:00 Amiodarone HCl (Cordarone) 200 mg BID PO Last administered on 10/09/18 09:32; Admin Dose 200 MG; Start 10/08/18 at 21:00 Apixaban (Eliquis) 2.5 mg BID PO Last administered on 10/09/18 09:32; Admin Dose 2.5 MG; Start 10/08/18 at 21:00 Calcitriol (Rocaltrol) 0.25 mcg DAILY PO Last administered on 10/09/18 09:33; Admin Dose 0.25 MCG; Start 10/09/18 at 09:00 Diltiazem HCl (Cardizem Cd) 240 mg DAILY PO Last administered on 10/09/18 09:31; Admin Dose 240 MG; Start 10/09/18 at 09:00 Folic Acid (Folic Acid) 1 mg DAILY PO Last administered on 10/09/18 09:32; Admin Dose 1 MG; Start 10/09/18 at 09:00 Famotidine (Pepcid) 20 mg BID PO Last administered on 10/09/18 09:32; Admin Dose 20 MG; Start 10/08/18 at 21:00 Hydromorphone HCl (Dilaudid) 1 mg Q4H PRN IV SEVERE PAIN LEVEL 7-10; Start 10/08/18 at 17:00 Magnesium Oxide (Mag-Ox 400) 1,200 mg TID PO Last administered on 10/09/18 09:33; Admin Dose 1,200 MG; Start 10/08/18 at 21:00 Multivit/Ca Carb/ B Cmplx/FA/Prenat (Flor-Elisa) 1 tab DAILY PO Last administered on 10/09/18 09:32; Admin Dose 1 TAB; Start 10/09/18 at 09:00 Tacrolimus (Prograf) 0.5 mg HS PO Last administered on 10/08/18 20:25; Admin Dose 0.5 MG; Start 10/08/18 at 21:00 Tacrolimus (Prograf) 1 mg DAILY PO Last administered on 10/09/18 09:32; Admin Dose 1 MG; Start 10/09/18 at 09:00 Magnesium Hydroxide (Milk Of Mag) 30 ml DAILY PRN PO CONSTIPATION; Start 10/08/18 at 17:00 Docusate Sodium (Colace) 100 mg DAILY PO Last administered on 10/09/18at 09:32; Admin Dose 100 MG; Start 10/09/18 at 09:00 CLARE IRBY M.D. Oct 09, 2018 13:33
[2018-10-09 14:00] VITALS: BP 121/65; PULSE 86; RESP 18
--- NOTE | 2018-10-09 16:21 | CONS ---
DATE OF ADMISSION: 10/08/2018 DATE OF CONSULTATION: 10/09/2018 TYPE OF CONSULTATION: Rehabilitation post-admission physician evaluation. REHABILITATION IMPAIRMENT CATEGORY: Left below the knee amputation. ACTIVE COMORBIDITIES: 1. Peripheral artery disease. 2. History of left transmetatarsal amputation with infection. 3. Hyperlipidemia. 4. End-stage renal disease, status post transplant. 5. Hypertension. 6. Atrial fibrillation. 7. Impairments in self-care and mobility. HISTORY OF PRESENT ILLNESS: The patient is a pleasant 58-year-old gentleman with a history of multiple medical comorbidities including a left foot transmetatarsal amputation, which was infected. The patient was admitted to [facility] and did require urgent left below the knee amputation on 09/13/2018 and subsequent revision on 10/02/2018. His hospital course was also complicated by atrial fibrillation with rapid ventricular response, sepsis, anemia, and hypokalemia. The patient has now been cleared to transfer to the rehabilitation unit for comprehensive interdisciplinary rehab care. FUNCTIONAL HISTORY: Prior to recent events, he was independent in self-care tasks and mobility. Currently, he requires moderate assist for self-care and mobility tasks. FAMILY AND SOCIAL HISTORY: The patient reports living at home in a second floor with multiple stair steps. PAST MEDICAL HISTORY: 1. End-stage renal disease status post cadaveric renal transplant in 2006. 2. Hypertension. 3. Peripheral artery disease. 4. Anemia. 5. Hyperlipidemia. 6. History of left transmetatarsal amputation. CURRENT MEDICATIONS: 1. Cordarone 200 mg p.o. b.i.d. 2. Eliquis 2.5 mg p.o. b.i.d. 3. Rocaltrol 0.25 mcg p.o. daily. 4. ____ 240 p.o. daily. 5. Pepcid 20 mg p.o. b.i.d. 6. Dilaudid p.r.n. 7. Magnesium oxide 1200 mg p.o. t.i.d. 8. Flor-Elisa. 9. Prograf 0.5 mg p.o. at bedtime and 1 mg p.o. daily. ALLERGIES: 1. ANCEF. 2. MEROPENEM. PHYSICAL EXAMINATION: VITAL SIGNS: He is currently afebrile with stable vital signs. HEENT: Extraocular motions are intact. Oropharynx clear. NECK: Supple. LUNGS: Clear anteriorly. CARDIAC: S1, S2. ABDOMEN: Soft, nontender, positive bowel sounds. NEUROLOGIC: He is awake and alert. He is oriented x3. He will follow simple 1-step commands. He demonstrates antigravity strength in bilateral upper extremities and the right lower extremity with dorsiflexion and plantar flexion intact. Left lower extremity with residual limb and patient does have antigravity strength with hip flexion, knee flexion and extension. PLAN: The patient has been admitted for comprehensive interdisciplinary acute rehab and is anticipated to tolerate 3 hours of daily therapy in divided doses for at least 5/7 days a week. The treatment plan will include: 1. Physical therapy to focus on bed mobility, transfers, and household ambulation and wheelchair mobility with the goal of having the patient reach a modified independent level. 2. Occupational therapy to focus on hygiene, grooming, dressing, bathing, and toileting activities with the goal of having the patient reach a modified independent level. 3. Rehabilitation nursing for carryover of therapeutic interventions, the goal of continent of bowel and bladder, the goal of pain adequately managed on oral medications. REHABILITATION BARRIER: Pain. INTERVENTION FOR BARRIER: Comprehensive interdisciplinary approach. ESTIMATED LENGTH OF STAY: 14 days. DISPOSITION GOAL: Home. I acknowledge that I performed a full physical examination on this patient within 24 hours of admission to the rehabilitation unit. I believe the patient is a good candidate for comprehensive interdisciplinary rehab care and is anticipated to make reasonable goals in a reasonable period of time as outlined above. Dictated By: MERNA ENGLAND/WADE Conf#: [id number] DID#: [id number] MTDD
[2018-10-09 19:15] VITALS: BP 103/65; PULSE 85; RESP 18
[2018-10-09] MEDS: TACROLIMUS 0.5 MG CAP PO SCH (20:53)
--- NOTE | 2018-10-10 01:31 | CONS ---
DATE OF ADMISSION: 10/08/2018 DATE OF CONSULTATION: RENAL CONSULTATION This patient in nephrologic consultation because he is status post a cadaveric kidney transplant. HISTORY OF PRESENT ILLNESS: This 58-year-old man was admitted on 09/13/2018 to [facility] because of a gangrenous infected left foot. The patient had to undergo a left below the knee amputation. Dr. Melvin Cortes performed the surgery. The patient was initially in the intensive care unit. He did transfer, then to the telemetry floor at [facility]. Since his initial surgery he has had 2 debridement, washout surgeries by Dr. Cortes because of delayed wound healing. He has been on antibiotics. He currently has a drain leading to a wound VAC. The patient does have a history of chronic kidney disease and was on maintenance hemodialysis until 2006 when he underwent a cadaveric renal transplant at [facility]. He was stable and on immunosuppressive medication. When I initially saw the patient he was taking Arava 20 mg a day, tacrolimus 1 mg twice a day for his immunosuppression. Because of delayed wound healing and infection, I made some adjustments in his immunosuppressive medication. I did call the head of the [facility] kidney transplant center, Dr. Leon Stephenson and discuss the patient's case with him. Dr. Stephenson made recommendations to me including discontinuing the Arava and to decrease the tacrolimus dose and aim for a trough tacrolimus level of around 5. These changes were made last week. A tacrolimus level is pending. In addition to his other medical problems, he does have hypomagnesemia and hypophosphatemia, which have required supplements. The patient did tell me that he developed renal failure initially because of an infection with Legionnaire's disease. The patient was transferred to the acute rehabilitation unit at [facility] for comprehensive rehabilitation program. PAST MEDICAL HISTORY: Remarkable for hypertension, hyperlipidemia, peripheral artery disease, cadaveric kidney transplant in 2006, history of Legionnaire's disease, anemia, hypertension, hypomagnesemia, hypophosphatemia, paroxysmal atrial fibrillation, peripheral artery disease. CURRENT MEDICATIONS: Include the followin. Rocaltrol 0.25 mcg a day dose. 2. Diltiazem 240 mg a day. 3. Folic acid 1 mg a day. 4. Flor-Elisa 1 tablet daily. 5. Tacrolimus 1 mg in the morning and 0.5 mg at night. 6. Amiodarone 200 mg twice a day. 7. Apixaban 2.5 mg twice a day. 9. Famotidine. 10. Magnesium oxide 1200 mg 3 times a day. 11. Acetaminophen p.r.n. pain. 12. Dilaudid 1 mg q. 4 hours p.r.n. severe pain. 13. Magnesium hydroxide. PAST SURGICAL HISTORY: Right upper arm AV fistula that is now not functioning, right internal jugular Perm-A-Cath that has been removed. Cadaveric kidney transplant in 2006. Left [id number] amputation. PHYSICAL EXAMINATION: GENERAL: At this time reveals a frail man in no apparent distress. VITAL SIGNS: Temperature 97.7, pulse of 86, respirations 18, blood pressure 121/65, O2 saturation of 98% on room air. HEENT: Head normocephalic. Eyes: Extraocular muscles intact. NOSE AND MOUTH: Normal. NECK: Supple. No neck vein distention. LUNGS: Clear to auscultation. HEART: Regular rhythm. No murmurs, gallops or rubs. ABDOMEN: Soft, nontender, no masses or megaly. EXTREMITIES: Right leg, no edema. Left leg, status post left below the knee amputation with drain and going to wound VAC. NEUROLOGIC: Grossly intact. IMPRESSION: 1. Kidney transplant status. This patient underwent a cadaveric kidney transplant in 2006. He has been maintained on immunosuppressive therapy since then. He came into the hospital on 09/13/2018. Because of a gangrenous infected left foot which required a below the knee amputation. His kidney function had been normal; however, it has decreased some and his immunosuppressive medication has been adjusted. 2. Peripheral artery disease. 3. Status post left [id number] amputation for gangrene and cellulitis of the left foot. 4. Hypomagnesemia, on replacement. 5. Hypophosphatemia, on replacement. He is hypomagnesemic and hypophosphatemic due to tacrolimus. 6. Anemia of chronic disease. PLAN: 1. Continue current medications. I am awaiting a Tacrolimus level which was drawn several days ago . I will then make adjustments in his Tacrolimus dose. 2. Continue other medication as ordered. 3. I will follow the patient along with you. Dictated By: ERIN MONTOYA MD, ND/WADE Conf#: [id number] DID#: [id number] CC: MERNA CALHOUN MD;*EndCC* MTDD
[2018-10-10 02:00] VITALS: BP 128/72; PULSE 77; RESP 18
[2018-10-10 07:30] VITALS: BP 159/82; PULSE 79; RESP 18
--- NOTE | 2018-10-10 09:00 | PN ---
Date/Time of Note Date/Time of Note DATE: 10/10/18 TIME: 09:00 Objective Vital Signs Date Temp Pulse Resp B/P (MAP) Pulse Ox O2 O2 Flow FiO2 Time Delivery Rate 10/10/18 97.8 77 18 128/72 97 Room Air 02:00 (90) Intake and Output 10/09/18 10/09/18 10/10/18 1515:00 23:00 07:00 IntakeIntake Total 1200 ml 260 ml OutputOutput Total 400 ml 200 ml BalanceBalance 800 ml 60 ml Exam INTERDISCIPLINARY TEAM CONFERENCE Attended by PT, OT, ST, Supervisor Shipping Room, Social Work, Rehabilitation Nursing, Quantitative Developer and Manufacturing Test EngineerShallot Packer Exam: Pulm- cta Abd-soft BOWEL- Cont BLADDER-Cont SKIN- wound vac OT- DRESSING-max BATHING-max TOILETING-max PT- BED MOBILITY-min TRANSFERS-mod AMBULATION-mod 6 feet A/P- Interdisciplinary team conference held today. Please see interdisciplinary sheet. Working toward d.c. on 10/22 with post discharge follow up of physical therapy, occupational therapy. Results/Medications Result Diagram: 10/09/18 0644 10/10/18 0611 Results 24 hrs Laboratory Tests Test 10/10/18 06:11 Sodium Level 139 Potassium Level 4.2 Chloride Level 109 Carbon Dioxide Level 25 Anion Gap 5 Blood Urea Nitrogen 28 H Creatinine 1.65 H Est Glomerular Filtrat Rate mL/min 43 L Glucose Level 101 Calcium Level 10.5 H Medications Current Medications Misc[facility] This patient yi... PRN PRN XX WOUND CARE; Start 10/08/18 at 17:00 Acetaminophen (Tylenol Tab) 650 mg Q6H PRN PO MILD PAIN(1-3)OR ELEVATED TEMP; Start 10/08/18 at 17:00 Amiodarone HCl (Cordarone) 200 mg BID PO Last administered on 10/09/18at 20:56; Admin Dose 200 MG; Start 10/08/18 at 21:00 Apixaban (Eliquis) 2.5 mg BID PO Last administered on 10/09/18at 20:54; Admin Dose 2.5 MG; Start 10/08/18 at 21:00 Calcitriol (Rocaltrol) 0.25 mcg DAILY PO Last administered on 10/09/18at 09:33; Admin Dose 0.25 MCG; Start 10/09/18 at 09:00 Diltiazem HCl (Cardizem Cd) 240 mg DAILY PO Last administered on 10/09/18 09:31; Admin Dose 240 MG; Start 10/09/18 at 09:00 Folic Acid (Folic Acid) 1 mg DAILY PO Last administered on 10/09/18 09:32; Admin Dose 1 MG; Start 10/09/18 at 09:00 Famotidine (Pepcid) 20 mg BID PO Last administered on 10/09/18 20:54; Admin Dose 20 MG; Start 10/08/18 at 21:00 Hydromorphone HCl (Dilaudid) 1 mg Q4H PRN IV SEVERE PAIN LEVEL 7-10; Start 10/08/18 at 17:00 Magnesium Oxide (Mag-Ox 400) 1,200 mg TID PO Last administered on 10/09/18 20:53; Admin Dose 1,200 MG; Start 10/08/18 at 21:00 Multivit/Ca Carb/ B Cmplx/FA/Prenat (Flor-Elisa) 1 tab DAILY PO Last administered on 10/09/18 09:32; Admin Dose 1 TAB; Start 10/09/18 at 09:00 Tacrolimus (Prograf) 0.5 mg HS PO Last administered on 10/09/18 20:53; Admin Dose 0.5 MG; Start 10/08/18 at 21:00 Tacrolimus (Prograf) 1 mg DAILY PO Last administered on 10/09/18 09:32; Admin Dose 1 MG; Start 10/09/18 at 09:00 Magnesium Hydroxide (Milk Of Mag) 30 ml DAILY PRN PO CONSTIPATION; Start 10/08/18 at 17:00 Docusate Sodium (Colace) 100 mg DAILY PO Last administered on 10/09/18 09:32; Admin Dose 100 MG; Start 10/09/18 at 09:00 MERNA CALHOUN MD Oct 10, 2018 09:00
[2018-10-10] MEDS: CALCITRIOL 0.25 MCG CAP PO SCH (09:47)
[2018-10-10] MEDS: FOLIC ACID 1 MG TAB PO SCH (09:47)
[2018-10-10] MEDS: APIXABAN 5 MG TABLET PO SCH ×2 (09:48→20:41)
[2018-10-10] MEDS: AMIODARONE 200 MG TAB PO SCH ×2 (09:49→20:41)
[2018-10-10] MEDS: MULTIVIT/CA CARB/B CMPLX/FA TAB PO SCH (09:49)
[2018-10-10] MEDS: FAMOTIDINE 20 MG TAB PO SCH ×2 (09:49→20:42)
[2018-10-10] MEDS: DILTIAZEM (CD) 240 MG CAP PO SCH (09:50)
[2018-10-10] MEDS: DOCUSATE SODIUM 100 MG CAP PO SCH (09:51)
--- NOTE | 2018-10-10 10:11 | CONS ---
Assessment/Plan Assessment/Plan Hospital Course (Demo Recall) 1. Kidney transplant status. He underwent a cadaveric kidney transplant in 2006 at [facility]. He is on immunosuppressive therapy. His serum creatinine is elevated today. I will adjust his tacrolimus level down because his last trough level was 8.2 which is higher than we would like. We are aiming for a tacrolimus trough level of 5. 2. Anemia 3. Hypertension 4. Peripheral artery disease status post left below the knee amputation. The wound is healing slowly and there has been some drainage and infection. He is now on the acute rehab unit for a comprehensive rehabilitation program 5. Hyperparathyroidism with elevated calcium. He is on calcitriol which I will discontinue because of the elevated calcium. 6. Hypomagnesemia and hypophosphatemia due to tacrolimus. His magnesium level is higher today and I will hold the magnesium for now. Consultation Date/Type/Reason Admit Date/Time Oct 08, 2018 at 16:11 Initial Consult Date 10/08/18 Type of Consult Nephrology Requesting Provider: FITO GAY MD, [facility] Date/Time of Note DATE: 10/10/18 TIME: 10:03 24 HR Interval Summary Free Text/Dictation This patient is being seen in nephrologic consultation. He is status post a cadaveric kidney transplant in 2006 and is on immunosuppressive therapy. He is awake and alert. He is now almost 4 weeks out from a left below the knee amputation. Constitutional: no complaints Exam/Review of Systems Exam Vitals Vital Signs Date Temp Pulse Resp B/P (MAP) Pulse Ox O2 O2 Flow FiO2 Time Delivery Rate 10/10/18 97.4 79 18 159/82 100 Room Air 07:30 (107) Intake and Output 10/09/18 10/09/18 10/10/18 1515:00 23:00 07:00 IntakeIntake Total 1200 ml 260 ml OutputOutput Total 400 ml 200 ml BalanceBalance 800 ml 60 ml Exam Left knee is status post below the knee amputation. Constitutional: alert, oriented, frail Respiratory: clear to auscultation Cardiovascular: regular rate and rhythm Gastrointestinal: soft, non-tender Results Result Diagram: 10/09/18 0644 10/10/18 0611 Results 24hrs Laboratory Tests Test 10/10/18 06:11 Sodium Level 139 Potassium Level 4.2 Chloride Level 109 Carbon Dioxide Level 25 Anion Gap 5 Blood Urea Nitrogen 28 H Creatinine 1.65 H Est Glomerular Filtrat Rate mL/min 43 L Glucose Level 101 Calcium Level 10.5 H Medications Medication Current Medications Miscellaneous Information (Pending [facility] Order For Wound Care) This patient yi... PRN PRN XX WOUND CARE; Start 10/08/18 at 17:00 Acetaminophen (Tylenol Tab) 650 mg Q6H PRN PO MILD PAIN(1-3)OR ELEVATED TEMP; Start 10/08/18 at 17:00 Amiodarone HCl (Cordarone) 200 mg BID PO Last administered on 10/10/18 09:49; Admin Dose 200 MG; Start 10/08/18 at 21:00 Apixaban (Eliquis) 2.5 mg BID PO Last administered on 10/10/18 09:48; Admin Dose 2.5 MG; Start 10/08/18 at 21:00 Calcitriol (Rocaltrol) 0.25 mcg DAILY PO Last administered on 10/10/18 09:47; Admin Dose 0.25 MCG; Start 10/09/18 at 09:00 Diltiazem HCl (Cardizem Cd) 240 mg DAILY PO Last administered on 10/10/18 09:50; Admin Dose 240 MG; Start 10/09/18 at 09:00 Folic Acid (Folic Acid) 1 mg DAILY PO Last administered on 10/10/18 09:47; Admin Dose 1 MG; Start 10/09/18 at 09:00 Famotidine (Pepcid) 20 mg BID PO Last administered on 10/10/18 09:49; Admin Dose 20 MG; Start 10/08/18 at 21:00 Hydromorphone HCl (Dilaudid) 1 mg Q4H PRN IV SEVERE PAIN LEVEL 7-10; Start 10/08/18 at 17:00 Multivit/Ca Carb/ B Cmplx/FA/Prenat (Flor-Elisa) 1 tab DAILY PO Last administered on 10/10/18 09:49; Admin Dose 1 TAB; Start 10/09/18 at 09:00 Magnesium Hydroxide (Milk Of Mag) 30 ml DAILY PRN PO CONSTIPATION; Start at 17:00 Docusate Sodium (Colace) 100 mg DAILY PO Last administered on 10/10/18 09:51; Admin Dose 100 MG; Start 10/09/18 at 09:00 Tacrolimus (Prograf) 0.5 mg BID PO ; Start 10/10/18 at 21:00 ERIN MONTOYA MD Oct 10, 2018 10:11
--- NOTE | 2018-10-10 13:39 | PN ---
Date/Time of Note Date/Time of Note DATE: 10/10/18 TIME: 13:37 Assessment/Plan VTE Prophylaxis Risk score (from Ns)>0 risk: 5 SCD applied (from Ns): No SCD contraindicated: other Pharmacological prophylaxis: apixaban Lines/Catheters IV [facility] Type [facility]from [facility] [place] Urinary Cath still in place: No Assessment/Plan Hospital Course SUBJECTIVE: No acute distress. OBJECTIVE: Vital signs-see below PHYSICAL EXAM: Constitutional: Adequately built,not in acute distress. HEENT: Head atraumatic and normocephalic. Eyes: Extraocular muscles intact. Anicteric sclerae. Pupils equal bilaterally, reactive to light. NECK: Supple without lymph node. CHEST: Clear and good breath sounds equally. No wheezing. No rhonchi. HEART: S1, S2. Regular rate and rhythm. ABDOMEN: Soft/non tender with no rebound tenderness. Bowel sounds were present. EXTREMITIES: L BKA stump/dressing c/d/i. No cyanosis, clubbing or edema. NEUROLOGIC: Alert and oriented x3. No focal deficit. No sensory deficit. PSYCHOSOCIAL: No signs of depression. INTEGUMENTARY: No open wounds. ASSESSMENT AND PLAN: Severe left peripheral artery disease with infected left TMA stump- stable - s/p Urgent left below-knee amputation on 09/13/2018 with washout. Further revision on 10/02. - on Eliquis - off Antibiotics A. fib -s/p cards review-> Continue on amiodarone until 10/20, 1 month tx. continue on diltiazem -cont ATC Sepsis with leukocytosis, febrile illness, and lactic acidosis secondary to lower extremity infection- resolving - remains afebrile and nl WBC - wound culture results noted - s/p abx completion Peripheral vascular disease. - Continue statins History of renal transplant. - nephrology on board and appreciate recommendations. - avoiding nephrotoxic agents - continue immunosuppressants Normocytic anemia - stable HLD - on statin DVT Prophylaxis: Eliquis Approximately 60-minute was spent on this history and physical. Patient was seen in collaboration with Dr. Landaverde Result Diagram: 10/09/18 0644 10/10/18 0611 Results 24hrs Laboratory Tests Test 10/10/18 06:11 Sodium Level 139 Potassium Level 4.2 Chloride Level 109 Carbon Dioxide Level 25 Anion Gap 5 Blood Urea Nitrogen 28 H Creatinine 1.65 H Est Glomerular Filtrat Rate mL/min 43 L Glucose Level 101 Calcium Level 10.5 H Exam/Review of Systems Exam Vitals Vital Signs Date Temp Pulse Resp B/P (MAP) Pulse Ox O2 O2 Flow FiO2 Time Delivery Rate 10/10/18 97.4 79 18 159/82 100 Room Air 07:30 (107) Intake and Output 10/09/18 10/09/18 10/10/18 1515:00 23:00 07:00 IntakeIntake Total 1200 ml 260 ml OutputOutput Total 400 ml 200 ml BalanceBalance 800 ml 60 ml Results Results 24hrs Laboratory Tests Test 10/10/18 06:11 Sodium Level 139 Potassium Level 4.2 Chloride Level 109 Carbon Dioxide Level 25 Anion Gap 5 Blood Urea Nitrogen 28 H Creatinine 1.65 H Est Glomerular Filtrat Rate mL/min 43 L Glucose Level 101 Calcium Level 10.5 H Medications Medication Current Medications Miscellaneous Information (Pending [facility] Order For Wound Care) This patient yi... PRN PRN XX WOUND CARE; Start 10/08/18 at 17:00 Acetaminophen (Tylenol Tab) 650 mg Q6H PRN PO MILD PAIN(1-3)OR ELEVATED TEMP; Start 10/08/18 at 17:00 Amiodarone HCl (Cordarone) 200 mg BID PO Last administered on 10/10/18 09:49; Admin Dose 200 MG; Start 10/08/18 at 21:00 Apixaban (Eliquis) 2.5 mg BID PO Last administered on 10/10/18at 09:48; Admin Dose 2.5 MG; Start 10/08/18 at 21:00 Diltiazem HCl (Cardizem Cd) 240 mg DAILY PO Last administered on 10/10/18 09:50; Admin Dose 240 MG; Start 10/09/18 at 09:00 Folic Acid (Folic Acid) 1 mg DAILY PO Last administered on 10/10/18 09:47; Admin Dose 1 MG; Start 10/09/18 at 09:00 Famotidine (Pepcid) 20 mg BID PO Last administered on 10/10/18 09:49; Admin Dose 20 MG; Start 10/08/18 at 21:00 Hydromorphone HCl (Dilaudid) 1 mg Q4H PRN IV SEVERE PAIN LEVEL 7-10; Start 10/08/18 at 17:00 Multivit/Ca Carb/ B Cmplx/FA/Prenat (Flor-Elisa) 1 tab DAILY PO Last administered on 10/10/18at 09:49; Admin Dose 1 TAB; Start 10/09/18 at 09:00 Magnesium Hydroxide (Milk Of Mag) 30 ml DAILY PRN PO CONSTIPATION; Start 10/08/18 at 17:00 Docusate Sodium (Colace) 100 mg DAILY PO Last administered on 10/10/18at 09:51; Admin Dose 100 MG; Start 10/09/18 at 09:00 Tacrolimus (Prograf) 0.5 mg BID PO ; Start 10/10/18 at 21:00 Gabapentin (Neurontin) 100 mg BID PO ; Start 10/10/18 at 21:00 WILTON ACKERMAN NP Oct 10, 2018 13:39
[2018-10-10 14:00] VITALS: BP 135/64; PULSE 87; RESP 20
--- NOTE | 2018-10-10 19:26 | CONS ---
Assessment/Plan Assessment/Plan Hospital Course (Demo Recall) # sepsis, muskuloskeletal, derm - h/o sepsis due infected left BKA stump - h/o infected L BKA stump site - h/o further revision of L BKA site and wound vac placement on 10/02/2018. Path showed gangrenous necrosis of skin and subcutaneous tissue, fibrous connective tissue and skeletal muscle tissue with focal necrosis, segment of bone with no evidence of osteomyelitis - h/o exploration and washout, debridement and VAC placement to L infected BKA site on 09/19/2018; The superficial wound culture grew B. fragilis on 09/18/2018; the intra-operative culture grew coag neg staph and B. fragilis on 09/19/18. CoNS was a likely colonizer; Pt took levofloxacin and metronidazole (09/17/2018- 10/04/2018) for these. The intra-operative fungal culture on 09/19/18 grew A. versicolor group, submitted reference lab for sensitivity; Pt took ambisome (10/02/2018-10/06/2018); the path was negative for malignancy. - h/o L BKA on 09/13/2018 - h/o draining wound, necrosis and infection of L TMA site. ESR 121 on 2018. # renal, cardiac - h/o renal transplant at [facility] in 2006, maintained on tacrolimus - h/o immunocompromised status - A fib with RVR, converted to SR - hypertension # other conditions - h/o transaminitis - adverse reaction to cefazolin (hives), meropenem (pruritus) recommendations: - monitor the wound closely off antibiotics - I requested that Pt's RN take pictures of the wound at the next wound VAC change, tomorrow - if there is a concern of recurrent infection, I will collect both bacterial and fungal culture. management d/w Pt's sister, XAVIER Mcintyre. D/w Dr. Nation on 10/09/2018 Consultation Date/Type/Reason Admit Date/Time Oct 08, 2018 at 16:11 Initial Consult Date 10/08/18 Type of Consult ID Requesting Provider: [facility]AY MD, [facility] Date/Time of Note DATE: 10/10/18 TIME: 19:24 24 HR Interval Summary Subjective hx not possible: other (Pt was soundly asleep) Exam/Review of Systems Exam Vitals Vital Signs Date Temp Pulse Resp B/P (MAP) Pulse Ox O2 O2 Flow FiO2 Time Delivery Rate 10/10/18 97.9 87 20 135/64 96 Room Air 14:00 (87) Intake and Output 10/09/18 10/09/18 10/10/18 1515:00 23:00 07:00 IntakeIntake Total 1200 ml 260 ml OutputOutput Total 400 ml 200 ml BalanceBalance 800 ml 60 ml Constitutional: other (PT was soundly asleep) Psych: other (see above) Head: normocephalic, atraumatic Eyes: nl lids ENMT: nl external ears & nose, nl nasal mucosa & septum Neck: other (not swollen) Respiratory: normal air movement Cardiovascular: No edema Gastrointestinal: No distended Musculoskeletal: other (s/p L BKA with wound VAC attached) Extremities: No edema 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: other (asleep) Skin: No rash or lesions Results Result Diagram: 10/09/18 0644 10/10/18 0611 Results 24hrs Laboratory Tests Test 10/10/18 06:11 Sodium Level 139 Potassium Level 4.2 Chloride Level 109 Carbon Dioxide Level 25 Anion Gap 5 Blood Urea Nitrogen 28 H Creatinine 1.65 H Est Glomerular Filtrat Rate mL/min 43 L Glucose Level 101 Calcium Level 10.5 H Medications Medication Current Medications Miscellaneous Information (Pending [facility] Order For Wound Care) This patient yi... PRN PRN XX WOUND CARE; Start 10/08/18 at 17:00 Acetaminophen (Tylenol Tab) 650 mg Q6H PRN PO MILD PAIN(1-3)OR ELEVATED TEMP; Start 10/08/18 at 17:00 Amiodarone HCl (Cordarone) 200 mg BID PO Last administered on 10/10/18at 09:49; Admin Dose 200 MG; Start 10/08/18 at 21:00 Apixaban (Eliquis) 2.5 mg BID PO Last administered on 10/10/18at 09:48; Admin Dose 2.5 MG; Start 10/08/18 at 21:00 Diltiazem HCl (Cardizem Cd) 240 mg DAILY PO Last administered on 10/10/18at 09:50; Admin Dose 240 MG; Start 10/09/18 at 09:00 Folic Acid (Folic Acid) 1 mg DAILY PO Last administered on 10/10/18 09:47; Admin Dose 1 MG; Start 10/09/18 at 09:00 Famotidine (Pepcid) 20 mg BID PO Last administered on 10/10/18 09:49; Admin Dose 20 MG; Start 10/08/18 at 21:00 Hydromorphone HCl (Dilaudid) 1 mg Q4H PRN IV SEVERE PAIN LEVEL 7-10; Start 10/08/18 at 17:00 Multivit/Ca Carb/ B Cmplx/FA/Prenat (Flor-Elisa) 1 tab DAILY PO Last administere d on 10/10/18 09:49; Admin Dose 1 TAB; Start 10/09/18 at 09:00 Magnesium Hydroxide (Milk Of Mag) 30 ml DAILY PRN PO CONSTIPATION; Start 10/08/18 at 17:00 Docusate Sodium (Colace) 100 mg DAILY PO Last administered on 10/10/18at 09:51; Admin Dose 100 MG; Start 10/09/18 at 09:00 Tacrolimus (Prograf) 0.5 mg BID PO ; Start 10/10/18 at 21:00 Gabapentin (Neurontin) 100 mg BID PO ; Start 10/10/18 at 21:00 CLARE IRBY M.D. Oct 10, 2018 19:26
[2018-10-10 19:43] VITALS: BP 128/75; PULSE 85; RESP 18
[2018-10-10] MEDS: GABAPENTIN 100 MG CAP PO SCH (20:42)
[2018-10-10] MEDS: TACROLIMUS 1 MG CAP PO SCH (20:42)
[2018-10-11 03:22] VITALS: BP 134/67; PULSE 78; RESP 18
[2018-10-11 08:16] VITALS: BP 126/56; PULSE 80; RESP 18
[2018-10-11] MEDS: MULTIVIT/CA CARB/B CMPLX/FA TAB PO SCH (08:37)
[2018-10-11] MEDS: DILTIAZEM (CD) 240 MG CAP PO SCH (08:37)
[2018-10-11] MEDS: AMIODARONE 200 MG TAB PO SCH ×2 (08:38→21:16)
[2018-10-11] MEDS: GABAPENTIN 100 MG CAP PO SCH ×2 (08:38→21:16)
[2018-10-11] MEDS: TACROLIMUS 1 MG CAP PO SCH ×2 (08:38→21:17)
[2018-10-11] MEDS: FAMOTIDINE 20 MG TAB PO SCH ×2 (08:39→21:16)
[2018-10-11] MEDS: APIXABAN 5 MG TABLET PO SCH ×2 (08:39→21:16)
[2018-10-11] MEDS: DOCUSATE SODIUM 100 MG CAP PO SCH (08:39)
[2018-10-11] MEDS: FOLIC ACID 1 MG TAB PO SCH (08:39)
--- NOTE | 2018-10-11 11:22 | CONS ---
Assessment/Plan Assessment/Plan Hospital Course (Demo Recall) 1. Kidney transplant status. He underwent a cadaveric kidney transplant in 2006 at [facility]. He is on immunosuppressive therapy. His serum creatinine was elevated yesterday. I will adjust his tacrolimus level down because his last trough level was 8.2 which is higher than we would like. We are aiming for a tacrolimus trough level of 5. 2. Anemia 3. Hypertension 4. Peripheral artery disease status post left below the knee amputation. The wound is healing . He is now on the acute rehab unit for a comprehensive rehabilitation program . 5. Hyperparathyroidism with elevated serum calcium. He is on calcitriol which I will discontinue because of the elevated calcium. 6. Hypomagnesemia and hypophosphatemia due to tacrolimus causing losses through the kidney.. His magnesium level was higher yesterday and I will hold the magnesium for now. Consultation Date/Type/Reason Admit Date/Time Oct 08, 2018 at 16:11 Initial Consult Date 10/08/18 Type of Consult Nephrology Requesting Provider: FITO GAY MD, [facility] Date/Time of Note DATE: 10/11/18 TIME: 11:18 24 HR Interval Summary Free Text/Dictation Alphonso is feeling better. He is now having his left leg wound stump dressed by the wound care nurse. The wound looks much better. It is healing nicely , there is no drainage. Constitutional: no complaints, improved Exam/Review of Systems Exam Vitals Vital Signs Date Temp Pulse Resp B/P (MAP) Pulse Ox O2 O2 Flow FiO2 Time Delivery Rate 10/11/18 97.7 80 18 126/56 99 08:16 (79) 10/11/18 Room Air 03:22 Intake and Output 10/10/18 10/10/18 10/11/18 1515:00 23:00 07:00 IntakeIntake Total 950 ml 890 ml 500 ml OutputOutput Total 300 ml BalanceBalance 950 ml 590 ml 500 ml Exam Left lower leg is status post a below the knee amputation. He has a wound VAC to bleeding from the wound. Constitutional: alert, oriented, frail Respiratory: clear to auscultation, normal air movement Cardiovascular: regular rate and rhythm Gastrointestinal: soft, non-tender Results Result Diagram: 10/09/18 0644 10/10/18 0611 Medications Medication Current Medications Miscellaneous Information (Pending [facility] Order For Wound Care) This patient yi... PRN PRN XX WOUND CARE; Start 10/08/18 at 17:00 Acetaminophen (Tylenol Tab) 650 mg Q6H PRN PO MILD PAIN(1-3)OR ELEVATED TEMP; Start 10/08/18 at 17:00 Amiodarone HCl (Cordarone) 200 mg BID PO Last administered on 10/11/18 08:38; Admin Dose 200 MG; Start 10/08/18 at 21:00 Apixaban (Eliquis) 2.5 mg BID PO Last administered on 10/11/18 08:39; Admin Dose 2.5 MG; Start 10/08/18 at 21:00 Diltiazem HCl (Cardizem Cd) 240 mg DAILY PO Last administered on 10/11/18 08:37; Admin Dose 240 MG; Start 10/09/18 at 09:00 Folic Acid (Folic Acid) 1 mg DAILY PO Last administered on 10/11/18 08:39; Admin Dose 1 MG; Start 10/09/18 at 09:00 Famotidine (Pepcid) 20 mg BID PO Last administered on 10/11/18 08:39; Admin Dose 20 MG; Start 10/08/18 at 21:00 Hydromorphone HCl (Dilaudid) 1 mg Q4H PRN IV SEVERE PAIN LEVEL 7-10; Start 10/08/18 at 17:00 Multivit/Ca Carb/ B Cmplx/FA/Prenat (Flor-Elisa) 1 tab DAILY PO Last administered on 10/11/18 08:37; Admin Dose 1 TAB; Start 10/09/18 at 09:00 Magnesium Hydroxide (Milk Of Mag) 30 ml DAILY PRN PO CONSTIPATION; Start 10/08/18 at 17:00 Docusate Sodium (Colace) 100 mg DAILY PO Last administered on 10/11/18 08:39; Admin Dose 100 MG; Start 10/09/18 at 09:00 Tacrolimus (Prograf) 0.5 mg BID PO Last administered on 10/11/18 08:38; Admin Dose 0.5 MG; Start 10/10/18 at 21:00 Gabapentin (Neurontin) 100 mg BID PO Last administered on 10/11/18 08:38; Admin Dose 100 MG; Start 10/10/18 at 21:00 ERIN MONTOYA MD Oct 11, 2018 11:22
--- NOTE | 2018-10-11 12:16 | PN ---
Date/Time of Note Date/Time of Note DATE: 10/11/18 TIME: 12:15 Assessment/Plan VTE Prophylaxis Risk score (from Ns)>0 risk: 3 [place] [facility] [place] contraindicated: other Pharmacological prophylaxis: apixaban Lines/Catheters [facility]from [facility] [place] Urinary Cath still in place: No Assessment/Plan Hospital Course SUBJECTIVE: No acute distress. OBJECTIVE: Vital signs-see below PHYSICAL EXAM: Constitutional: Adequately built,not in acute distress. HEENT: Head atraumatic and normocephalic. Eyes: Extraocular muscles intact. Anicteric sclerae. Pupils equal bilaterally, reactive to light. NECK: Supple without lymph node. CHEST: Clear and good breath sounds equally. No wheezing. No rhonchi. HEART: S1, S2. Regular rate and rhythm. ABDOMEN: Soft/non tender with no rebound tenderness. Bowel sounds were present. EXTREMITIES: L BKA stump/dressing c/d/i. No cyanosis, clubbing or edema. NEUROLOGIC: Alert and oriented x3. No focal deficit. No sensory deficit. PSYCHOSOCIAL: No signs of depression. INTEGUMENTARY: No open wounds. ASSESSMENT AND PLAN: Severe left peripheral artery disease with infected left TMA stump- stable - s/p Urgent left below-knee amputation on 09/13/2018 with washout. Further revision on 10/02. - on Eliquis - off Antibiotics A. fib -s/p cards review-> Continue on amiodarone until 10/20, 1 month tx. continue on diltiazem -cont ATC Sepsis with leukocytosis, febrile illness, and lactic acidosis secondary to lower extremity infection- resolving - remains afebrile and nl WBC - wound culture results noted - s/p abx completion Peripheral vascular disease. - Continue statins History of renal transplant. - nephrology on board and appreciate recommendations. - avoiding nephrotoxic agents - continue immunosuppressants Normocytic anemia - stable HLD - on statin DVT Prophylaxis: José Miguel Patient was seen in collaboration with Dr. Landaverde Result Diagram: 10/09/18 0644 10/10/18 0611 Results 24hrs Laboratory Tests Test 10/11/18 12:04 White Blood Count Pending Red Blood Count Pending Hemoglobin Pending Hematocrit Pending Mean Corpuscular Volume Pending Mean Corpuscular Hemoglobin Pending Mean Corpuscular Hemoglobin Concent Pending Red Cell Distribution Width Pending Platelet Count Pending Mean Platelet Volume Pending Exam/Review of Systems Exam Vitals Vital Signs Date Temp Pulse Resp B/P (MAP) Pulse Ox O2 O2 Flow FiO2 Time Delivery Rate 10/11/18 97.7 80 18 126/56 99 08:16 (79) 10/11/18 Room Air 03:22 Intake and Output 10/10/18 10/10/18 10/11/18 1515:00 23:00 07:00 IntakeIntake Total 950 ml 890 ml 500 ml OutputOutput Total 300 ml BalanceBalance 950 ml 590 ml 500 ml Results Results 24hrs Laboratory Tests Test 10/11/18 12:04 White Blood Count Pending Red Blood Count Pending Hemoglobin Pending Hematocrit Pending Mean Corpuscular Volume Pending Mean Corpuscular Hemoglobin Pending Mean Corpuscular Hemoglobin Concent Pending Red Cell Distribution Width Pending Platelet Count Pending Mean Platelet Volume Pending Medications Medication Current Medications Miscellaneous Information (Pending Santyl Order For Wound Care) This patient yi... PRN PRN XX WOUND CARE; Start 10/08/18 at 17:00 Acetaminophen (Tylenol Tab) 650 mg Q6H PRN PO MILD PAIN(1-3)OR ELEVATED TEMP; Start 10/08/18 at 17:00 Amiodarone HCl (Cordarone) 200 mg BID PO Last administered on 10/11/18at 08:38; Admin Dose 200 MG; Start 10/08/18 at 21:00 Apixaban (Eliquis) 2.5 mg BID PO Last administered on 10/11/18 08:39; Admin Dose 2.5 MG; Start 10/08/18 at 21:00 Diltiazem HCl (Cardizem Cd) 240 mg DAILY PO Last administered on 10/11/18 08:37; Admin Dose 240 MG; Start 10/09/18 at 09:00 Folic Acid (Folic Acid) 1 mg DAILY PO Last administered on 10/11/18 08:39; Admin Dose 1 MG; Start 10/09/18 at 09:00 Famotidine (Pepcid) 20 mg BID PO Last administered on 10/11/18 08:39; Admin Dose 20 MG; Start 10/08/18 at 21:00 Hydromorphone HCl (Dilaudid) 1 mg Q4H PRN IV SEVERE PAIN LEVEL 7-10; Start 10/08/18 at 17:00 Multivit/Ca Carb/ B Cmplx/FA/Prenat (Flor-Elisa) 1 tab DAILY PO Last administered on 10/11/18 08:37; Admin Dose 1 TAB; Start 10/09/18 at 09:00 Magnesium Hydroxide (Milk Of Mag) 30 ml DAILY PRN PO CONSTIPATION; Start 10/08/18 at 17:00 Docusate Sodium (Colace) 100 mg DAILY PO Last administered on 10/11/18at 08:39; Admin Dose 100 MG; Start 10/09/18 at 09:00 Tacrolimus (Prograf) 0.5 mg BID PO Last administered on 10/11/18 08:38; Admin Dose 0.5 MG; Start 10/10/18 at 21:00 Gabapentin (Neurontin) 100 mg BID PO Last administered on 10/11/18 08:38; Admin Dose 100 MG; Start 10/10/18 at 21:00 WILTON ACKERMAN NP Oct 11, 2018 12:16
--- NOTE | 2018-10-11 12:23 | PN ---
Date/Time of Note Date/Time of Note DATE: 10/11/18 TIME: 11:54 Subjective Pain improving Objective Vital Signs Date Temp Pulse Resp B/P (MAP) Pulse Ox O2 O2 Flow FiO2 Time Delivery Rate 10/11/18 97.7 80 18 126/56 99 08:16 (79) 10/11/18 Room Air 03:22 Intake and Output 10/10/18 10/10/18 10/11/18 1515:00 23:00 07:00 IntakeIntake Total 950 ml 890 ml 500 ml OutputOutput Total 300 ml BalanceBalance 950 ml 590 ml 500 ml Exam mod assist pulm-cta integ- woundvac changed today Results/Medications Result Diagram: 10/09/18 0644 10/10/18 0611 Medications Current Medications Miscellaneous Information (Pending [facility] Order For Wound Care) This patient yi... PRN PRN XX WOUND CARE; Start 10/08/18 at 17:00 Acetaminophen (Tylenol Tab) 650 mg Q6H PRN PO MILD PAIN(1-3)OR ELEVATED TEMP; Start 10/08/18 at 17:00 Amiodarone HCl (Cordarone) 200 mg BID PO Last administered on 10/11/18at 08:38; Admin Dose 200 MG; Start 10/08/18 at 21:00 Apixaban (Eliquis) 2.5 mg BID PO Last administered on 10/11/18at 08:39; Admin Dose 2.5 MG; Start 10/08/18 at 21:00 Diltiazem HCl (Cardizem Cd) 240 mg DAILY PO Last administered on 10/11/18at 08:37; Admin Dose 240 MG; Start 10/09/18 at 09:00 Folic Acid (Folic Acid) 1 mg DAILY PO Last administered on 10/11/18at 08:39; Admin Dose 1 MG; Start 10/09/18 at 09:00 Famotidine (Pepcid) 20 mg BID PO Last administered on 10/11/18at 08:39; Admin Dose 20 MG; Start 10/08/18 at 21:00 Hydromorphone HCl (Dilaudid) 1 mg Q4H PRN IV SEVERE PAIN LEVEL 7-10; Start at 17:00 Multivit/Ca Carb/ B Cmplx/FA/Prenat (Flor-Elisa) 1 tab DAILY PO Last administered on 10/11/18at 08:37; Admin Dose 1 TAB; Start 10/09/18 at 09:00 Magnesium Hydroxide (Milk Of Mag) 30 ml DAILY PRN PO CONSTIPATION; Start 10/08/18 at 17:00 Docusate Sodium (Colace) 100 mg DAILY PO Last administered on 10/11/18at 08:39; Admin Dose 100 MG; Start 10/09/18 at 09:00 Tacrolimus (Prograf) 0.5 mg BID PO Last administered on 10/11/18at 08:38; Admin Dose 0.5 MG; Start 10/10/18 at 21:00 Gabapentin (Neurontin) 100 mg BID PO Last administered on 10/11/18at 08:38; Admin Dose 100 MG; Start 10/10/18 at 21:00 Assessment/Plan Additional Assessment/Plan rehab- Left below the knee amputation. Progressing with rehab integ- continue wound care Peripheral artery disease. History of left transmetatarsal amputation with infection. Hyperlipidemia. End-stage renal disease, status post transplant. Hypertension. Atrial fibrillation. MERNA CALHOUN MD Oct 11, 2018 12:23
--- NOTE | 2018-10-11 13:12 | QN ---
Documentation Comment No new c/o. No pain. AFVSS L BKA stump intact, the open area has mostly granulated in, no erythema or drainage - continue VAC, change again on Sunday and 3x/wk AMARILIS RIBERA MD Oct 11, 2018 13:12
--- NOTE | 2018-10-11 14:42 | CONS ---
Assessment/Plan Assessment/Plan Hospital Course (Demo Recall) # sepsis, muskuloskeletal, derm - h/o sepsis due infected left BKA stump - h/o infected L BKA stump site - h/o further revision of L BKA site and wound vac placement on 10/02/2018. Path showed gangrenous necrosis of skin and subcutaneous tissue, fibrous connective tissue and skeletal muscle tissue with focal necrosis, segment of bone with no evidence of osteomyelitis - h/o exploration and washout, debridement and VAC placement to L infected BKA site on 09/19/2018; The superficial wound culture grew B. fragilis on 09/18/2018; the intra-operative culture grew coag neg staph and B. fragilis on 09/19/18. CoNS was a likely colonizer; Pt took levofloxacin and metronidazole (09/17/2018- 10/04/2018) for these. The intra-operative fungal culture on 09/19/18 grew A. versicolor group, submitted reference lab for sensitivity; Pt took ambisome (10/02/2018-10/06/2018); the path was negative for malignancy. - h/o L BKA on 09/13/2018 - h/o draining wound, necrosis and infection of L TMA site. ESR 121 on 2018. # renal, cardiac - h/o renal transplant at [facility] in 2006, maintained on tacrolimus - h/o immunocompromised status - A fib with RVR, converted to SR - hypertension # other conditions - h/o transaminitis - adverse reaction to cefazolin (hives), meropenem (pruritus) recommendations: - I requested that Pt's RN take pictures of the wound at the next wound VAC change again on 10/14/2018 - monitor the wound closely off antibiotics management d/w Pt and his nurse Consultation Date/Type/Reason Admit Date/Time Oct 08, 2018 at 16:11 Initial Consult Date 10/08/18 Type of Consult ID Requesting Provider: FITO GAY MD, [facility] Date/Time of Note DATE: 10/11/18 TIME: 14:37 24 HR Interval Summary Free Text/Dictation Pt reports that his BP was low but no records of hypotension on [facility] Constitutional: other (Pt reports that his BP was low but no records of hypotension on [facility]) Detailed Summary Eyes: no complaints ENT: no complaints Respiratory: no complaints Cardiovascular: no complaints Gastrointestinal: no complaints Genitourinary: no complaints Musculoskeletal: other (pain with wound VAC chage) Skin: no complaints Neurologic: other (Pt reports that his BP was low but no records of hypotension on [employer]) Exam/Review of Systems Exam Vitals Vital Signs Date Temp Pulse Resp B/P (MAP) Pulse Ox O2 O2 Flow FiO2 Time Delivery Rate 10/11/18 97.7 80 18 126/56 99 08:16 (79) 10/11/18 Room Air 03:22 Intake and Output 10/10/18 10/10/18 10/11/18 1515:00 23:00 07:00 IntakeIntake Total 950 ml 890 ml 500 ml OutputOutput Total 300 ml BalanceBalance 950 ml 590 ml 500 ml Constitutional: alert, oriented, other (soft spoken) Psych: no complaints, nl mood/affect Eyes: nl conjunctiva, nl lids, nl sclera ENMT: nl external ears & nose, nl nasal mucosa & septum, mucosa pink and moist Neck: non-tender Respiratory: clear to auscultation, normal air movement Cardiovascular: regular rate and rhythm, nl pulses Gastrointestinal: soft Musculoskeletal: other (s/p L BKA, in the picture, the wound appeared inflammed but no purulence) 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: lethargic Skin: No rash or lesions Results Result Diagram: 10/11/18 1204 10/11/18 1204 Results 24hrs Laboratory Tests Test 10/11/18 12:04 White Blood Count 6.8 # Red Blood Count 4.01 L Hemoglobin 11.1 L Hematocrit 36.0 L Mean Corpuscular Volume 89.8 Mean Corpuscular Hemoglobin 27.7 L Mean Corpuscular Hemoglobin Concent 30.8 L Red Cell Distribution Width 21.6 H Platelet Count 282 # Mean Platelet Volume 10.9 H Immature Granulocytes % 0.900 H Neutrophils % 68.5 Lymphocytes % 11.1 L Monocytes % 12.6 H Eosinophils % 6.2 Basophils % 0.7 Nucleated Red Blood Cells % 0.0 Immature Granulocytes # 0.060 H Neutrophils # 4.7 Lymphocytes # 0.8 Monocytes # 0.9 Eosinophils # 0.4 Basophils # 0.1 Nucleated Red Blood Cells # 0.0 Sodium Level 139 Potassium Level 4.4 Chloride Level 105 Carbon Dioxide Level 22 Anion Gap 12 # Blood Urea Nitrogen 28 H Creatinine 1.79 H Est Glomerular Filtrat Rate mL/min 39 L Glucose Level 149 # Calcium Level 11.0 H Phosphorus Level 2.5 Magnesium Level 2.3 Total Bilirubin 0.4 Direct Bilirubin 0.00 Indirect Bilirubin 0.4 Aspartate Amino Transf (AST/SGOT) 82 H Alanine Aminotransferase (ALT/SGPT) 37 Alkaline Phosphatase 175 H Total Protein 7.8 Albumin 3.8 Globulin 4.00 H Albumin/Globulin Ratio 0.95 Medications Medication Current Medications Miscellaneous Information (Pending Santyl Order For Wound Care) This patient yi... PRN PRN XX WOUND CARE; Start 10/08/18 at 17:00 Acetaminophen (Tylenol Tab) 650 mg Q6H PRN PO MILD PAIN(1-3)OR ELEVATED TEMP; Start 10/08/18 at 17:00 Amiodarone HCl (Cordarone) 200 mg BID PO Last administered on 10/11/18 08:38; Admin Dose 200 MG; Start 10/08/18 at 21:00 Apixaban (Eliquis) 2.5 mg BID PO Last administered on 10/11/18 08:39; Admin Dose 2.5 MG; Start 10/08/18 at 21:00 Diltiazem HCl (Cardizem Cd) 240 mg DAILY PO Last administered on 10/11/18 08:37; Admin Dose 240 MG; Start 10/09/18 at 09:00 Folic Acid (Folic Acid) 1 mg DAILY PO Last administered on 10/11/18 08:39; Admin Dose 1 MG; Start 10/09/18 at 09:00 Famotidine (Pepcid) 20 mg BID PO Last administered on 10/11/18 08:39; Admin Dose 20 MG; Start 10/08/18 at 21:00 Hydromorphone HCl (Dilaudid) 1 mg Q4H PRN IV SEVERE PAIN LEVEL 7-10; Start 10/08/18 at 17:00 Multivit/Ca Carb/ B Cmplx/FA/Prenat (Flor-Elisa) 1 tab DAILY PO Last administered on 10/11/18 08:37; Admin Dose 1 TAB; Start 10/09/18 at 09:00 Magnesium Hydroxide (Milk Of Mag) 30 ml DAILY PRN PO CONSTIPATION; Start 10/08/18 at 17:00 Docusate Sodium (Colace) 100 mg DAILY PO Last administered on 10/11/18 08:39; Admin Dose 100 MG; Start 10/09/18 at 09:00 Tacrolimus (Prograf) 0.5 mg BID PO Last administered on 10/11/18 08:38; Admin Dose 0.5 MG; Start 10/10/18 at 21:00 Gabapentin (Neurontin) 100 mg BID PO Last administered on 10/11/18 08:38; Admin Dose 100 MG; Start 10/10/18 at 21:00 CLARE IRBY M.D. Oct 11, 2018 14:42
[2018-10-11 16:25] VITALS: BP 92/59; PULSE 87
[2018-10-11 19:08] VITALS: BP 125/75; PULSE 77; RESP 18
[2018-10-12 02:00] VITALS: BP 132/71; PULSE 84; RESP 18
[2018-10-12 07:30] VITALS: BP 142/86; PULSE 87; RESP 18
[2018-10-12] MEDS: GABAPENTIN 100 MG CAP PO SCH ×2 (08:09→20:55)
[2018-10-12] MEDS: APIXABAN 5 MG TABLET PO SCH ×2 (08:09→20:55)
[2018-10-12] MEDS: MULTIVIT/CA CARB/B CMPLX/FA TAB PO SCH (08:09)
[2018-10-12] MEDS: DOCUSATE SODIUM 100 MG CAP PO SCH (08:09)
[2018-10-12] MEDS: FAMOTIDINE 20 MG TAB PO SCH ×2 (08:09→20:55)
[2018-10-12] MEDS: FOLIC ACID 1 MG TAB PO SCH (08:09)
[2018-10-12] MEDS: DILTIAZEM (CD) 240 MG CAP PO SCH (08:10)
[2018-10-12] MEDS: AMIODARONE 200 MG TAB PO SCH ×2 (08:10→20:56)
--- NOTE | 2018-10-12 08:37 | CONS ---
Assessment/Plan Assessment/Plan Assessment/Plan (Daily) 1. S/P cad Kidney transplant: AT [facility] [place] 2006. now with sushma in the setting of recent sepsis, prograf toxicity and exposure to amphotericin with hypercalcemia and seconday hyperparthyroidism. ampho dc and tacro dose reduced. ua negative and rejection highly unlikley. labs very mildly worse today and calcium remains elevated. will start gentle ivf and add sensipar 2. Anemia: due to above. epogen prn 3. Hypertension: controlled 4. Peripheral artery disease status post left below the knee amputation. post op complicated infection requiring revision, antifungal therapy and now with wound vac 5. Hyperparathyroidism with elevated serum calcium. calcitriol dc. monitor ca/phos and add sensipar if still elevated 6. Hypomagnesemia and hypophosphatemia due to tacrolimus causing losses through the kidney. labs pending and replace as needed Consultation Date/Type/Reason Admit Date/Time Oct 08, 2018 at 16:11 Initial Consult Date 10/08/18 Requesting Provider: FITO GAY MD, [facility] Date/Time of Note DATE: 10/12/18 TIME: 08:33 24 HR Interval Summary Free Text/Dictation doing ok. no complaints Exam/Review of Systems Exam Vitals Vital Signs Date Temp Pulse Resp B/P (MAP) Pulse Ox O2 O2 Flow FiO2 Time Delivery Rate 10/12/18 98.2 84 18 132/71 99 02:00 (91) 10/11/18 Room Air 03:22 Intake and Output 10/11/18 10/11/18 10/12/18 1515:00 23:00 07:00 IntakeIntake Total 360 ml 240 ml 240 ml OutputOutput Total 300 ml 100 ml 300 ml BalanceBalance 60 ml 140 ml -60 ml Constitutional: alert Head: normocephalic Neck: supple, non-tender Respiratory: diminished breath sounds Cardiovascular: regular rate and rhythm, other (bka/ wound vac) Gastrointestinal: soft Results Result Diagram: 10/11/18 1204 10/11/18 1204 Results 24hrs Laboratory Tests Test 10/11/18 12:04 10/12/18 07:50 White Blood Count 6.8 # Pending Red Blood Count 4.01 L Pending Hemoglobin 11.1 L Pending Hematocrit 36.0 L Pending Mean Corpuscular Volume 89.8 Pending Mean Corpuscular Hemoglobin 27.7 L Pending Mean Corpuscular Hemoglobin Concent 30.8 L Pending Red Cell Distribution Width 21.6 H Pending Platelet Count 282 # Pending Mean Platelet Volume 10.9 H Pending Immature Granulocytes % 0.900 H Neutrophils % 68.5 Lymphocytes % 11.1 L Monocytes % 12.6 H Eosinophils % 6.2 Basophils % 0.7 Nucleated Red Blood Cells % 0.0 Immature Granulocytes # 0.060 H Neutrophils # 4.7 Lymphocytes # 0.8 Monocytes # 0.9 Eosinophils # 0.4 Basophils # 0.1 Nucleated Red Blood Cells # 0.0 Sodium Level 139 Potassium Level 4.4 Chloride Level 105 Carbon Dioxide Level 22 Anion Gap 12 # Blood Urea Nitrogen 28 H Creatinine 1.79 H Est Glomerular Filtrat Rate mL/min 39 L Glucose Level 149 # Calcium Level 11.0 H Phosphorus Level 2.5 Magnesium Level 2.3 Total Bilirubin 0.4 Direct Bilirubin 0.00 Indirect Bilirubin 0.4 Aspartate Amino Transf (AST/SGOT) 82 H Alanine Aminotransferase (ALT/SGPT) 37 Alkaline Phosphatase 175 H Total Protein 7.8 Albumin 3.8 Globulin 4.00 H Albumin/Globulin Ratio 0.95 Medications Medication Current Medications Miscellaneous Information (Pending [facility] Order For Wound Care) This patient yi... PRN PRN XX WOUND CARE; Start 10/08/18 at 17:00 Acetaminophen (Tylenol Tab) 650 mg Q6H PRN PO MILD PAIN(1-3)OR ELEVATED TEMP; Start 10/08/18 at 17:00 Amiodarone HCl (Cordarone) 200 mg BID PO Last administered on 10/12/18at 08:10; Admin Dose 200 MG; Start 10/08/18 at 21:00 Apixaban (Eliquis) 2.5 mg BID PO Last administered on 10/12/18 08:09; Admin Dose 2.5 MG; Start 10/08/18 at 21:00 Diltiazem HCl (Cardizem Cd) 240 mg DAILY PO Last administered on 10/12/18at 08:10; Admin Dose 240 MG; Start 10/09/18 at 09:00 Folic Acid (Folic Acid) 1 mg DAILY PO Last administered on 10/12/18at 08:09; Admin Dose 1 MG; Start 10/09/18 at 09:00 Famotidine (Pepcid) 20 mg BID PO Last administered on 10/12/18 08:09; Admin Dose 20 MG; Start 10/08/18 at 21:00 Hydromorphone HCl (Dilaudid) 1 mg Q4H PRN IV SEVERE PAIN LEVEL 7-10; Start 10/08/18 at 17:00 Multivit/Ca Carb/ B Cmplx/FA/Prenat (Flor-Elisa) 1 tab DAILY PO Last admini stered on 10/12/18 08:09; Admin Dose 1 TAB; Start 10/09/18 at 09:00 Magnesium Hydroxide (Milk Of Mag) 30 ml DAILY PRN PO CONSTIPATION; Start 10/08/18 at 17:00 Docusate Sodium (Colace) 100 mg DAILY PO Last administered on 10/12/18 08:09; Admin Dose 100 MG; Start 10/09/18 at 09:00 Gabapentin (Neurontin) 100 mg BID PO Last administered on 10/12/18 08:09; Admin Dose 100 MG; Start 10/10/18 at 21:00 Tacrolimus (Prograf) 0.5 mg BID PO ; Start 10/12/18 at 09:00 BARRY KUMAR MD Oct 12, 2018 08:37
[2018-10-12] MEDS: TACROLIMUS 0.5 MG CAP PO SCH ×2 (09:36→20:55)
[2018-10-12 10:30] VITALS: BP 120/84; PULSE 86
--- NOTE | 2018-10-12 11:27 | PN ---
Date/Time of Note Date/Time of Note DATE: 10/12/18 TIME: 11:26 Subjective RN reports pt with slight hypotension this morning Objective Vital Signs Date Temp Pulse Resp B/P (MAP) Pulse Ox O2 O2 Flow FiO2 Time Delivery Rate 10/12/18 86 120/84 10:30 (96) 10/12/18 97.9 18 99 Room Air 07:30 Intake and Output 10/11/18 10/11/18 10/12/18 1515:00 23:00 07:00 IntakeIntake Total 360 ml 240 ml 240 ml OutputOutput Total 300 ml 100 ml 300 ml BalanceBalance 60 ml 140 ml -60 ml Exam cga transfer cga ambulation 25 feet Results/Medications Result Diagram: 10/12/18 0750 10/12/18 0750 Results 24 hrs Laboratory Tests Test 10/11/18 12:04 10/12/18 07:50 White Blood Count 6.8 # 5.0 # Red Blood Count 4.01 L 3.93 L Hemoglobin 11.1 L 11.0 L Hematocrit 36.0 L 35.3 L Mean Corpuscular Volume 89.8 89.8 Mean Corpuscular Hemoglobin 27.7 L 28.0 L Mean Corpuscular Hemoglobin Concent 30.8 L 31.2 L Red Cell Distribution Width 21.6 H 21.4 H Platelet Count 282 # 265 Mean Platelet Volume 10.9 H 10.6 H Immature Granulocytes % 0.900 H 1.200 H Neutrophils % 68.5 46.4 Lymphocytes % 11.1 L 24.7 Monocytes % 12.6 H 15.1 H Eosinophils % 6.2 11.4 H Basophils % 0.7 1.2 Nucleated Red Blood Cells % 0.0 0.0 Immature Granulocytes # 0.060 H 0.060 H Neutrophils # 4.7 2.3 Lymphocytes # 0.8 1.2 Monocytes # 0.9 0.8 Eosinophils # 0.4 0.6 H Basophils # 0.1 0.1 Nucleated Red Blood Cells # 0.0 0.0 Sodium Level 139 140 Potassium Level 4.4 4.5 Chloride Level 105 107 Carbon Dioxide Level 22 24 Anion Gap 12 # 9 Blood Urea Nitrogen 28 H 29 H Creatinine 1.79 H 1.82 H Est Glomerular Filtrat Rate mL/min 39 L 38 L Glucose Level 149 # 112 Calcium Level 11.0 H 11.0 H Phosphorus Level 2.5 2.9 Magnesium Level 2.3 2.2 Total Bilirubin 0.4 0.4 Direct Bilirubin 0.00 0.00 Indirect Bilirubin 0.4 0.4 Aspartate Amino Transf (AST/SGOT) 82 H 77 H Alanine Aminotransferase (ALT/SGPT) 37 49 Alkaline Phosphatase 175 H 190 H Total Protein 7.8 7.0 Albumin 3.8 3.7 Globulin 4.00 H 3.30 H Albumin/Globulin Ratio 0.95 1.12 Medications Current Medications Miscellaneous Information (Pending Santyl Order For Wound Care) This patient yi... PRN PRN XX WOUND CARE; Start 10/08/18 at 17:00 Acetaminophen (Tylenol Tab) 650 mg Q6H PRN PO MILD PAIN(1-3)OR ELEVATED TEMP; Start 10/08/18 at 17:00 Amiodarone HCl (Cordarone) 200 mg BID PO Last administered on 10/12/18 08:10; Admin Dose 200 MG; Start 10/08/18 at 21:00 Apixaban (Eliquis) 2.5 mg BID PO Last administered on 10/12/18 08:09; Admin Dose 2.5 MG; Start 10/08/18 at 21:00 Diltiazem HCl (Cardizem Cd) 240 mg DAILY PO Last administered on 10/12/18 08:10; Admin Dose 240 MG; Start 10/09/18 at 09:00 Folic Acid (Folic Acid) 1 mg DAILY PO Last administered on 10/12/18 08:09; Admin Dose 1 MG; Start 10/09/18 at 09:00 Famotidine (Pepcid) 20 mg BID PO Last administered on 10/12/18 08:09; Admin Dose 20 MG; Start 10/08/18 at 21:00 Hydromorphone HCl (Dilaudid) 1 mg Q4H PRN IV SEVERE PAIN LEVEL 7-10; Start 10/08/18 at 17:00 Multivit/Ca Carb/ B Cmplx/FA/Prenat (Flor-Elisa) 1 tab DAILY PO Last admin istered on 10/12/18 08:09; Admin Dose 1 TAB; Start 10/09/18 at 09:00 Magnesium Hydroxide (Milk Of Mag) 30 ml DAILY PRN PO CONSTIPATION; Start 10/08/18 at 17:00 Docusate Sodium (Colace) 100 mg DAILY PO Last administered on 10/12/18at 08:09; Admin Dose 100 MG; Start 10/09/18 at 09:00 Tacrolimus (Prograf) 0.5 mg BID PO Last administered on 10/12/18at 09:36; Admin Dose 0.5 MG; Start 10/12/18 at 09:00 Gabapentin (Neurontin) 100 mg HS PO ; Start 10/12/18 at 21:00 Assessment/Plan Additional Assessment/Plan rehab- Left below the knee amputation. Continue rehab BP- abd binder for OOB integ- continue wound care Peripheral artery disease. History of left transmetatarsal amputation with infection. Hyperlipidemia. End-stage renal disease, status post transplant. Hypertension. Atrial fibrillation. MERNA CALHOUN MD Oct 12, 2018 11:27
--- NOTE | 2018-10-12 11:41 | PN ---
Date/Time of Note Date/Time of Note DATE: 10/12/18 TIME: 11:41 Assessment/Plan VTE Prophylaxis Risk score (from Ns)>0 risk: 7 SCD applied (from [facility] [place]): No SCD contraindicated: other Pharmacological prophylaxis: apixaban Lines/Catheters IV Catheter Type (from [facility]): Saline Lock Urinary Cath still in place: No Assessment/Plan Hospital Course SUBJECTIVE: No acute distress. OBJECTIVE: Vital signs-see below PHYSICAL EXAM: Constitutional: Adequately built,not in acute distress. HEENT: Head atraumatic and normocephalic. Eyes: Extraocular muscles intact. Anicteric sclerae. Pupils equal bilaterally, reactive to light. NECK: Supple without lymph node. CHEST: Clear and good breath sounds equally. No wheezing. No rhonchi. HEART: S1, S2. Regular rate and rhythm. ABDOMEN: Soft/non tender with no rebound tenderness. Bowel sounds were present. EXTREMITIES: L BKA stump/dressing c/d/i. No cyanosis, clubbing or edema. NEUROLOGIC: Alert and oriented x3. No focal deficit. No sensory deficit. PSYCHOSOCIAL: No signs of depression. INTEGUMENTARY: No open wounds. ASSESSMENT AND PLAN: Severe left peripheral artery disease with infected left TMA stump- stable - s/p Urgent left below-knee amputation on 09/13/2018 with washout. Further revision on 10/02. - on Eliquis - off Antibiotics A. fib -s/p cards review-> Continue on amiodarone until 10/20, 1 month tx. continue on diltiazem -cont ATC Sepsis with leukocytosis, febrile illness, and lactic acidosis secondary to lower extremity infection- resolving - remains afebrile and nl WBC - wound culture results noted - s/p abx completion Peripheral vascular disease. - Continue statins History of renal transplant. - nephrology on board and appreciate recommendations. - avoiding nephrotoxic agents - continue immunosuppressants Normocytic anemia - stable HLD - on statin DVT Prophylaxis: José Miguel Patient was seen in collaboration with Dr. Landaverde Result Diagram: 10/12/18 0750 10/12/18 0750 Results 24hrs Laboratory Tests Test 10/11/18 12:04 10/12/18 07:50 White Blood Count 6.8 # 5.0 # Red Blood Count 4.01 L 3.93 L Hemoglobin 11.1 L 11.0 L Hematocrit 36.0 L 35.3 L Mean Corpuscular Volume 89.8 89.8 Mean Corpuscular Hemoglobin 27.7 L 28.0 L Mean Corpuscular Hemoglobin Concent 30.8 L 31.2 L Red Cell Distribution Width 21.6 H 21.4 H Platelet Count 282 # 265 Mean Platelet Volume 10.9 H 10.6 H Immature Granulocytes % 0.900 H 1.200 H Neutrophils % 68.5 46.4 Lymphocytes % 11.1 L 24.7 Monocytes % 12.6 H 15.1 H Eosinophils % 6.2 11.4 H Basophils % 0.7 1.2 Nucleated Red Blood Cells % 0.0 0.0 Immature Granulocytes # 0.060 H 0.060 H Neutrophils # 4.7 2.3 Lymphocytes # 0.8 1.2 Monocytes # 0.9 0.8 Eosinophils # 0.4 0.6 H Basophils # 0.1 0.1 Nucleated Red Blood Cells # 0.0 0.0 Sodium Level 139 140 Potassium Level 4.4 4.5 Chloride Level 105 107 Carbon Dioxide Level 22 24 Anion Gap 12 # 9 Blood Urea Nitrogen 28 H 29 H Creatinine 1.79 H 1.82 H Est Glomerular Filtrat Rate mL/min 39 L 38 L Glucose Level 149 # 112 Calcium Level 11.0 H 11.0 H Phosphorus Level 2.5 2.9 Magnesium Level 2.3 2.2 Total Bilirubin 0.4 0.4 Direct Bilirubin 0.00 0.00 Indirect Bilirubin 0.4 0.4 Aspartate Amino Transf (AST/SGOT) 82 H 77 H Alanine Aminotransferase (ALT/SGPT) 37 49 Alkaline Phosphatase 175 H 190 H Total Protein 7.8 7.0 Albumin 3.8 3.7 Globulin 4.00 H 3.30 H Albumin/Globulin Ratio 0.95 1.12 Exam/Review of Systems Exam Vitals Vital Signs Date Temp Pulse Resp B/P (MAP) Pulse Ox O2 O2 Flow FiO2 Time Delivery Rate 10/12/18 86 120/84 10:30 (96) 10/12/18 97.9 18 99 Room Air 07:30 Intake and Output 10/11/18 10/11/18 10/12/18 1515:00 23:00 07:00 IntakeIntake Total 360 ml 240 ml 240 ml OutputOutput Total 300 ml 100 ml 300 ml BalanceBalance 60 ml 140 ml -60 ml Results Results 24hrs Laboratory Tests Test 10/11/18 12:04 10/12/18 07:50 White Blood Count 6.8 # 5.0 # Red Blood Count 4.01 L 3.93 L Hemoglobin 11.1 L 11.0 L Hematocrit 36.0 L 35.3 L Mean Corpuscular Volume 89.8 89.8 Mean Corpuscular Hemoglobin 27.7 L 28.0 L Mean Corpuscular Hemoglobin Concent 30.8 L 31.2 L Red Cell Distribution Width 21.6 H 21.4 H Platelet Count 282 # 265 Mean Platelet Volume 10.9 H 10.6 H Immature Granulocytes % 0.900 H 1.200 H Neutrophils % 68.5 46.4 Lymphocytes % 11.1 L 24.7 Monocytes % 12.6 H 15.1 H Eosinophils % 6.2 11.4 H Basophils % 0.7 1.2 Nucleated Red Blood Cells % 0.0 0.0 Immature Granulocytes # 0.060 H 0.060 H Neutrophils # 4.7 2.3 Lymphocytes # 0.8 1.2 Monocytes # 0.9 0.8 Eosinophils # 0.4 0.6 H Basophils # 0.1 0.1 Nucleated Red Blood Cells # 0.0 0.0 Sodium Level 139 140 Potassium Level 4.4 4.5 Chloride Level 105 107 Carbon Dioxide Level 22 24 Anion Gap 12 # 9 Blood Urea Nitrogen 28 H 29 H Creatinine 1.79 H 1.82 H Est Glomerular Filtrat Rate mL/min 39 L 38 L Glucose Level 149 # 112 Calcium Level 11.0 H 11.0 H Phosphorus Level 2.5 2.9 Magnesium Level 2.3 2.2 Total Bilirubin 0.4 0.4 Direct Bilirubin 0.00 0.00 Indirect Bilirubin 0.4 0.4 Aspartate Amino Transf (AST/SGOT) 82 H 77 H Alanine Aminotransferase (ALT/SGPT) 37 49 Alkaline Phosphatase 175 H 190 H Total Protein 7.8 7.0 Albumin 3.8 3.7 Globulin 4.00 H 3.30 H Albumin/Globulin Ratio 0.95 1.12 Medications Medication Current Medications Miscellaneous Information (Pending Santyl Order For Wound Care) This patient yi... PRN PRN XX WOUND CARE; Start 10/08/18 at 17:00 Acetaminophen (Tylenol Tab) 650 mg Q6H PRN PO MILD PAIN(1-3)OR ELEVATED TEMP; Start 10/08/18 at 17:00 Amiodarone HCl (Cordarone) 200 mg BID PO Last administered on 10/12/18 08:10; Admin Dose 200 MG; Start 10/08/18 at 21:00 Apixaban (Eliquis) 2.5 mg BID PO Last administered on 10/12/18 08:09; Admin Dose 2.5 MG; Start 10/08/18 at 21:00 Diltiazem HCl (Cardizem Cd) 240 mg DAILY PO Last administered on 10/12/18 08:10; Admin Dose 240 MG; Start 10/09/18 at 09:00 Folic Acid (Folic Acid) 1 mg DAILY PO Last administered on 10/12/18 08:09; Admin Dose 1 MG; Start 10/09/18 at 09:00 Famotidine (Pepcid) 20 mg BID PO Last administered on 10/12/18 08:09; Admin Dose 20 MG; Start 10/08/18 at 21:00 Hydromorphone HCl (Dilaudid) 1 mg Q4H PRN IV SEVERE PAIN LEVEL 7-10; Start 10/08/18 at 17:00 Multivit/Ca Carb/ B Cmplx/FA/Prenat (Flor-Elisa) 1 tab DAILY PO Last administered on 10/12/18 08:09; Admin Dose 1 TAB; Start 10/09/18 at 09:00 Magnesium Hydroxide (Milk Of Mag) 30 ml DAILY PRN PO CONSTIPATION; Start 10/08/18 at 17:00 Docusate Sodium (Colace) 100 mg DAILY PO Last administered on 10/12/18 08:09; Admin Dose 100 MG; Start 10/09/18 at 09:00 Tacrolimus (Prograf) 0.5 mg BID PO Last administered on 10/12/18 09:36; Admin Dose 0.5 MG; Start 10/12/18 at 09:00 Gabapentin (Neurontin) 100 mg HS PO ; Start 10/12/18 at 21:00 WILTON ACKERMAN NP Oct 12, 2018 11:41
[2018-10-12 14:00] VITALS: BP 109/71; PULSE 86; RESP 18
[2018-10-12] MEDS: SOD CHLORIDE 0.9% 1,000 ML IV SCH (14:48)
[2018-10-12] MEDS: CINACALCET 30 MG TAB PO SCH (15:46)
--- NOTE | 2018-10-12 18:19 | CONS ---
Assessment/Plan Assessment/Plan Hospital Course (Demo Recall) # sepsis, muskuloskeletal, derm - h/o sepsis due infected left BKA stump - h/o infected L BKA stump site - h/o further revision of L BKA site and wound vac placement on 10/02/2018. Path showed gangrenous necrosis of skin and subcutaneous tissue, fibrous connective tissue and skeletal muscle tissue with focal necrosis, segment of bone with no evidence of osteomyelitis - h/o exploration and washout, debridement and VAC placement to L infected BKA site on 09/19/2018; The superficial wound culture grew B. fragilis on 09/18/2018; the intra-operative culture grew coag neg staph and B. fragilis on 09/19/18. CoNS was a likely colonizer; Pt took levofloxacin and metronidazole (09/17/2018- 10/04/2018) for these. The intra-operative fungal culture on 09/19/18 grew A. versicolor group, submitted reference lab for sensitivity; Pt took ambisome (10/02/2018-10/06/2018); the path was negative for malignancy. - h/o L BKA on 09/13/2018 - h/o draining wound, necrosis and infection of L TMA site. ESR 121 on 2018. # renal, cardiac - h/o renal transplant at [facility] in 2006, maintained on tacrolimus - h/o immunocompromised status - A fib with RVR, converted to SR - TWIN, multifactorial: Ambisome, tacrolimus, recent sepsis # other conditions - h/o transaminitis - adverse reaction to cefazolin (hives), meropenem (pruritus) recommendations: - I requested that Pt's RN take pictures of the wound at the next wound VAC change again on 10/15/2018 - monitor the wound closely off antibiotics management d/w Pt and his nurse [place] Consultation Date/Type/Reason Admit Date/Time Oct 08, 2018 at 16:11 Initial Consult Date 10/08/18 Type of Consult ID Requesting Provider: FITO GAY MD, [facility] Date/Time of Note DATE: 10/12/18 TIME: 18:11 24 HR Interval Summary Free Text/Dictation IVF was started given hypotension yesterday and worsening Cr level Constitutional: improved Detailed Summary Eyes: no complaints ENT: no complaints Respiratory: no complaints Cardiovascular: no complaints Gastrointestinal: no complaints Genitourinary: no complaints Musculoskeletal: restricted range of motion (s/p L BKA) Skin: no complaints Neurologic: No headache Exam/Review of Systems Exam Vitals Vital Signs Date Temp Pulse Resp B/P (MAP) Pulse Ox O2 O2 Flow FiO2 Time Delivery Rate 10/12/18 97.8 86 18 109/71 98 Room Air 14:00 (84) Intake and Output 10/11/18 10/11/18 10/12/18 1515:00 23:00 07:00 IntakeIntake Total 360 ml 240 ml 240 ml OutputOutput Total 300 ml 100 ml 300 ml BalanceBalance 60 ml 140 ml -60 ml Constitutional: alert, oriented, well developed Psych: no complaints, nl mood/affect Head: normocephalic, atraumatic Eyes: nl conjunctiva, nl lids ENMT: nl external ears & nose, nl nasal mucosa & septum, mucosa pink and moist Neck: supple; No non-tender Respiratory: normal air movement Cardiovascular: edema (LLE: trace) Gastrointestinal: soft; No distended Musculoskeletal: other (s/p L BKA, dressed with wound VAC) Extremities: edema (LLE: trace) 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: PLATE GL[employer] INST[employer]ER II-XII intact, nl mental status, nl speech Skin: nl turgor; No rash or lesions Results Result Diagram: 10/12/18 0750 10/12/18 0750 Results 24hrs Laboratory Tests Test 10/12/18 07:50 White Blood Count 5.0 # Red Blood Count 3.93 L Hemoglobin 11.0 L Hematocrit 35.3 L Mean Corpuscular Volume 89.8 Mean Corpuscular Hemoglobin 28.0 L Mean Corpuscular Hemoglobin Concent 31.2 L Red Cell Distribution Width 21.4 H Platelet Count 265 Mean Platelet Volume 10.6 H Immature Granulocytes % 1.200 H Neutrophils % 46.4 Lymphocytes % 24.7 Monocytes % 15.1 H Eosinophils % 11.4 H Basophils % 1.2 Nucleated Red Blood Cells % 0.0 Immature Granulocytes # 0.060 H Neutrophils # 2.3 Lymphocytes # 1.2 Monocytes # 0.8 Eosinophils # 0.6 H Basophils # 0.1 Nucleated Red Blood Cells # 0.0 Sodium Level 140 Potassium Level 4.5 Chloride Level 107 Carbon Dioxide Level 24 Anion Gap 9 Blood Urea Nitrogen 29 H Creatinine 1.82 H Est Glomerular Filtrat Rate mL/min 38 L Glucose Level 112 Calcium Level 11.0 H Phosphorus Level 2.9 Magnesium Level 2.2 Total Bilirubin 0.4 Direct Bilirubin 0.00 Indirect Bilirubin 0.4 Aspartate Amino Transf (AST/SGOT) 77 H Alanine Aminotransferase (ALT/SGPT) 49 Alkaline Phosphatase 190 H Total Protein 7.0 Albumin 3.7 Globulin 3.30 H Albumin/Globulin Ratio 1.12 Medications Medication Current Medications Miscellaneous Information ([facility] This patient yi. .. PRN PRN XX WOUND CARE; Start 10/08/18 at 17:00 Acetaminophen (Tylenol Tab) 650 mg Q6H PRN PO MILD PAIN(1-3)OR ELEVATED TEMP; Start 10/08/18 at 17:00 Amiodarone HCl (Cordarone) 200 mg BID PO Last administered on 10/12/18 08:10; Admin Dose 200 MG; Start 10/08/18 at 21:00 Apixaban (Eliquis) 2.5 mg BID PO Last administered on 10/12/18 08:09; Admin Dose 2.5 MG; Start 10/08/18 at 21:00 Diltiazem HCl (Cardizem Cd) 240 mg DAILY PO Last administered on 10/12/18 08:10; Admin Dose 240 MG; Start 10/09/18 at 09:00 Folic Acid (Folic Acid) 1 mg DAILY PO Last administered on 10/12/18 08:09; Admin Dose 1 MG; Start 10/09/18 at 09:00 Famotidine (Pepcid) 20 mg BID PO Last administered on 10/12/18 08:09; Admin Dose 20 MG; Start 10/08/18 at 21:00 Hydromorphone HCl (Dilaudid) 1 mg Q4H PRN IV SEVERE PAIN LEVEL 7-10; Start 10/08/18 at 17:00 Multivit/Ca Carb/ B Cmplx/FA/Prenat (Flor-Elisa) 1 tab DAILY PO Last administered on 10/12/18 08:09; Admin Dose 1 TAB; Start 10/09/18 at 09:00 Magnesium Hydroxide (Milk Of Mag) 30 ml DAILY PRN PO CONSTIPATION; Start 10/08/18 at 17:00 Docusate Sodium (Colace) 100 mg DAILY PO Last administered on 10/12/18at 08:09; Admin Dose 100 MG; Start 10/09/18 at 09:00 Tacrolimus (Prograf) 0.5 mg BID PO Last administered on 10/12/18at 09:36; Admin Dose 0.5 MG; Start 10/12/18 at 09:00 Gabapentin (Neurontin) 100 mg HS PO ; Start 10/12/18 at 21:00 Sodium Chloride 1,000 ml @ 50 mls/hr Q20H IV Last administered on 10/12/18at 14:48; Admin Dose 50 MLS/HR; Start 10/12/18 at 14:00 Cinacalcet (Sensipar) 30 mg DAILY PO Last administered on 10/12/18at 15:46; Admin Dose 30 MG; Start 10/12/18 at 14:00 CLARE IRBY M.D. Oct 12, 2018 18:18
[2018-10-12 19:46] VITALS: BP 135/79; PULSE 84; RESP 18
[2018-10-13 02:42] VITALS: BP 119/73; PULSE 78; RESP 18
[2018-10-13 07:30] VITALS: BP 140/85; PULSE 79; RESP 20
[2018-10-13] MEDS: DOCUSATE SODIUM 100 MG CAP PO SCH (08:51)
[2018-10-13] MEDS: APIXABAN 5 MG TABLET PO SCH ×2 (08:53→20:12)
[2018-10-13] MEDS: FOLIC ACID 1 MG TAB PO SCH (08:54)
[2018-10-13] MEDS: MULTIVIT/CA CARB/B CMPLX/FA TAB PO SCH (08:54)
[2018-10-13] MEDS: TACROLIMUS 0.5 MG CAP PO SCH ×2 (08:54→20:12)
[2018-10-13] MEDS: FAMOTIDINE 20 MG TAB PO SCH ×2 (08:54→20:13)
[2018-10-13] MEDS: CINACALCET 30 MG TAB PO SCH (08:54)
[2018-10-13] MEDS: AMIODARONE 200 MG TAB PO SCH ×2 (08:55→20:12)
[2018-10-13] MEDS: DILTIAZEM (CD) 240 MG CAP PO SCH (08:56)
[2018-10-13] MEDS: SOD CHLORIDE 0.9% 1,000 ML IV SCH (10:50)
--- NOTE | 2018-10-13 11:52 | PN ---
Date/Time of Note Date/Time of Note DATE: 10/13/18 TIME: 11:52 Assessment/Plan VTE Prophylaxis Risk score (from Ns)>0 risk: 3 SCD applied (from [facility] [place] No SCD contraindicated: other Pharmacological prophylaxis: apixaban Lines/Catheters IV Catheter Type (from [facility]): Peripheral IV Urinary Cath still in place: No Assessment/Plan Hospital Course SUBJECTIVE: No acute distress. OBJECTIVE: Vital signs-see below PHYSICAL EXAM: Constitutional: Adequately built,not in acute distress. HEENT: Head atraumatic and normocephalic. Eyes: Extraocular muscles intact. Anicteric sclerae. Pupils equal bilaterally, reactive to light. NECK: Supple without lymph node. CHEST: Clear and good breath sounds equally. No wheezing. No rhonchi. HEART: S1, S2. Regular rate and rhythm. ABDOMEN: Soft/non tender with no rebound tenderness. Bowel sounds were present. EXTREMITIES: L BKA stump/dressing c/d/i. No cyanosis, clubbing or edema. NEUROLOGIC: Alert and oriented x3. No focal deficit. No sensory deficit. PSYCHOSOCIAL: No signs of depression. INTEGUMENTARY: No open wounds. ASSESSMENT AND PLAN: Severe left peripheral artery disease with infected left TMA stump- stable - s/p Urgent left below-knee amputation on 09/13/2018 with washout. Further revision on 10/02. - on Eliquis - off Antibiotics A. fib -s/p cards review-> Continue on amiodarone until 10/20, 1 month tx. continue on diltiazem -cont ATC Sepsis with leukocytosis, febrile illness, and lactic acidosis secondary to lower extremity infection- resolving - remains afebrile and nl WBC - wound culture results noted - s/p abx completion Peripheral vascular disease. - Continue statins History of renal transplant. - nephrology on board and appreciate recommendations. - avoiding nephrotoxic agents - continue immunosuppressants Normocytic anemia - stable HLD - on statin DVT Prophylaxis: José Miguel Patient was seen in collaboration with Dr. Landaverde Result Diagram: 10/13/18 0613 10/13/18 0613 Results 24hrs Laboratory Tests Test 10/13/18 06:13 White Blood Count 4.7 L Red Blood Count 3.51 L Hemoglobin 10.0 L Hematocrit 31.5 L Mean Corpuscular Volume 89.7 Mean Corpuscular Hemoglobin 28.5 L Mean Corpuscular Hemoglobin Concent 31.7 L Red Cell Distribution Width 21.1 H Platelet Count 226 Mean Platelet Volume 10.5 H Immature Granulocytes % 1.300 H Neutrophils % 48.1 Lymphocytes % 21.4 Monocytes % 15.7 H Eosinophils % 12.7 H Basophils % 0.8 Nucleated Red Blood Cells % 0.0 Immature Granulocytes # 0.060 H Neutrophils # 2.3 Lymphocytes # 1.0 Monocytes # 0.7 Eosinophils # 0.6 H Basophils # 0.0 Nucleated Red Blood Cells # 0.0 Sodium Level 140 Potassium Level 4.1 Chloride Level 107 Carbon Dioxide Level 26 Anion Gap 7 Blood Urea Nitrogen 25 H Creatinine 1.80 H Est Glomerular Filtrat Rate mL/min 39 L Glucose Level 97 Calcium Level 10.2 Phosphorus Level 2.8 Magnesium Level 2.0 Total Bilirubin 0.4 Direct Bilirubin 0.00 Indirect Bilirubin 0.4 Aspartate Amino Transf (AST/SGOT) 63 H Alanine Aminotransferase (ALT/SGPT) 50 Alkaline Phosphatase 164 H Total Protein 6.6 Albumin 3.4 Globulin 3.20 Albumin/Globulin Ratio 1.06 Exam/Review of Systems Exam Vitals Vital Signs Date Temp Pulse Resp B/P (MAP) Pulse Ox O2 O2 Flow FiO2 Time Delivery Rate 10/13/18 97.8 79 20 140/85 100 Room Air 07:30 (103) Intake and Output 10/12/18 10/12/18 10/13/18 1515:00 23:00 07:00 IntakeIntake Total 940 ml 600 ml OutputOutput Total 0 ml 200 ml 600 ml BalanceBalance 0 ml 740 ml 0 ml Results Results 24hrs Laboratory Tests Test 10/13/18 06:13 White Blood Count 4.7 L Red Blood Count 3.51 L Hemoglobin 10.0 L Hematocrit 31.5 L Mean Corpuscular Volume 89.7 Mean Corpuscular Hemoglobin 28.5 L Mean Corpuscular Hemoglobin Concent 31.7 L Red Cell Distribution Width 21.1 H Platelet Count 226 Mean Platelet Volume 10.5 H Immature Granulocytes % 1.300 H Neutrophils % 48.1 Lymphocytes % 21.4 Monocytes % 15.7 H Eosinophils % 12.7 H Basophils % 0.8 Nucleated Red Blood Cells % 0.0 Immature Granulocytes # 0.060 H Neutrophils # 2.3 Lymphocytes # 1.0 Monocytes # 0.7 Eosinophils # 0.6 H Basophils # 0.0 Nucleated Red Blood Cells # 0.0 Sodium Level 140 Potassium Level 4.1 Chloride Level 107 Carbon Dioxide Level 26 Anion Gap 7 Blood Urea Nitrogen 25 H Creatinine 1.80 H Est Glomerular Filtrat Rate mL/min 39 L Glucose Level 97 Calcium Level 10.2 Phosphorus Level 2.8 Magnesium Level 2.0 Total Bilirubin 0.4 Direct Bilirubin 0.00 Indirect Bilirubin 0.4 Aspartate Amino Transf (AST/SGOT) 63 H Alanine Aminotransferase (ALT/SGPT) 50 Alkaline Phosphatase 164 H Total Protein 6.6 Albumin 3.4 Globulin 3.20 Albumin/Globulin Ratio 1.06 Medications Medication Current Medications Miscellaneous Information (Pending Santyl Order For Wound Care) This patient yi... PRN PRN XX WOUND CARE; Start 10/08/18 at 17:00 Acetaminophen (Tylenol Tab) 650 mg Q6H PRN PO MILD PAIN(1-3)OR ELEVATED TEMP; Start 10/08/18 at 17:00 Amiodarone HCl (Cordarone) 200 mg BID PO Last administered on 10/13/18 08:55; Admin Dose 200 MG; Start 10/08/18 at 21:00 Apixaban (Eliquis) 2.5 mg BID PO Last administered on 10/13/18 08:53; Admin Dose 2.5 MG; Start 10/08/18 at 21:00 Diltiazem HCl (Cardizem Cd) 240 mg DAILY PO Last administered on 10/13/18 08:56; Admin Dose 240 MG; Start 10/09/18 at 09:00 Folic Acid (Folic Acid) 1 mg DAILY PO Last administered on 10/13/18 08:54; Admin Dose 1 MG; Start 10/09/18 at 09:00 Famotidine (Pepcid) 20 mg BID PO Last administered on 10/13/18 08:54; Admin Dose 20 MG; Start 10/08/18 at 21:00 Hydromorphone HCl (Dilaudid) 1 mg Q4H PRN IV SEVERE PAIN LEVEL 7-10; Start 10/08/18 at 17:00 Multivit/Ca Carb/ B Cmplx/FA/Prenat (Flor-Elisa) 1 tab DAILY PO Last administered on 10/13/18 08:54; Admin Dose 1 TAB; Start 10/09/18 at 09:00 Magnesium Hydroxide (Milk Of Mag) 30 ml DAILY PRN PO CONSTIPATION; Start 10/08/18 at 17:00 Docusate Sodium (Colace) 100 mg DAILY PO Last administered on 10/13/18 08:51; Admin Dose 100 MG; Start 10/09/18 at 09:00 Tacrolimus (Prograf) 0.5 mg BID PO Last administered on 10/13/18 08:54; Admin Dose 0.5 MG; Start 10/12/18 at 09:00 Gabapentin (Neurontin) 100 mg HS PO Last administered on 10/12/18 20:55; Admin Dose 100 MG; Start 10/12/18 at 21:00 Sodium Chloride 1,000 ml @ 50 mls/hr Q20H IV Last administered on 10/13/18 10:50; Admin Dose 50 MLS/HR; Start 10/12/18 at 14:00 Cinacalcet (Sensipar) 30 mg DAILY PO Last administered on 10/13/18 08:54; Admin Dose 30 MG; Start 10/12/18 at 14:00 WILTON ACKERMAN NP Oct 13, 2018 11:52
[2018-10-13 14:00] VITALS: BP 111/70; PULSE 83; RESP 18
--- NOTE | 2018-10-13 16:23 | CONS ---
Assessment/Plan Assessment/Plan Assessment/Plan (Daily) 1. S/P cad Kidney transplant: at [facility] [place] 2006. now with sushma in the setting of recent sepsis, prograf toxicity and exposure to amphotericin with hypercalcemia and seconday hyperparthyroidism. ampho dc and tacro dose reduced. ua negative and rejection highly unlikley. labs stable/ mildly better with ivf and sensipar. am labs 2. Anemia: due to above. epogen prn 3. Hypertension: controlled 4. Peripheral artery disease status post left below the knee amputation. post op complicated infection requiring revision, antifungal therapy and now with wound vac 5. Hyperparathyroidism with elevated serum calcium. calcitriol dc. monitor ca/phos and started sensipar with improvement Consultation Date/Type/Reason Admit Date/Time Oct 08, 2018 at 16:11 Initial Consult Date 10/08/18 Requesting Provider: FITO GAY MD, [facility] Date/Time of Note DATE: 10/13/18 TIME: 16:20 24 HR Interval Summary Free Text/Dictation no complaints Exam/Review of Systems Exam Vitals Vital Signs Date Temp Pulse Resp B/P (MAP) Pulse Ox O2 O2 Flow FiO2 Time Delivery Rate 10/13/18 98.1 83 18 111/70 100 Room Air 14:00 (84) Intake and Output 10/12/18 10/12/18 10/13/18 1515:00 23:00 07:00 IntakeIntake Total 940 ml 600 ml OutputOutput Total 0 ml 200 ml 600 ml BalanceBalance 0 ml 740 ml 0 ml Constitutional: alert, well developed Psych: no complaints Head: normocephalic ENMT: nl external ears & nose Neck: supple, jvd Respiratory: clear to auscultation Cardiovascular: regular rate and rhythm, edema (bka/ wound vac in place) Results Result Diagram: 10/13/18 0613 10/13/18 0613 Results 24hrs Laboratory Tests Test 10/13/18 06:13 White Blood Count 4.7 L Red Blood Count 3.51 L Hemoglobin 10.0 L Hematocrit 31.5 L Mean Corpuscular Volume 89.7 Mean Corpuscular Hemoglobin 28.5 L Mean Corpuscular Hemoglobin Concent 31.7 L Red Cell Distribution Width 21.1 H Platelet Count 226 Mean Platelet Volume 10.5 H Immature Granulocytes % 1.300 H Neutrophils % 48.1 Lymphocytes % 21.4 Monocytes % 15.7 H Eosinophils % 12.7 H Basophils % 0.8 Nucleated Red Blood Cells % 0.0 Immature Granulocytes # 0.060 H Neutrophils # 2.3 Lymphocytes # 1.0 Monocytes # 0.7 Eosinophils # 0.6 H Basophils # 0.0 Nucleated Red Blood Cells # 0.0 Sodium Level 140 Potassium Level 4.1 Chloride Level 107 Carbon Dioxide Level 26 Anion Gap 7 Blood Urea Nitrogen 25 H Creatinine 1.80 H Est Glomerular Filtrat Rate mL/min 39 L Glucose Level 97 Calcium Level 10.2 Phosphorus Level 2.8 Magnesium Level 2.0 Total Bilirubin 0.4 Direct Bilirubin 0.00 Indirect Bilirubin 0.4 Aspartate Amino Transf (AST/SGOT) 63 H Alanine Aminotransferase (ALT/SGPT) 50 Alkaline Phosphatase 164 H Total Protein 6.6 Albumin 3.4 Globulin 3.20 Albumin/Globulin Ratio 1.06 Medications Medication Current Medications Miscellaneous Information ([facility] This patient yi... PRN PRN XX WOUND CARE; Start 10/08/18 at 17:00 Acetaminophen (Tylenol Tab) 650 mg Q6H PRN PO MILD PAIN(1-3)OR ELEVATED TEMP; Start 10/08/18 at 17:00 Amiodarone HCl (Cordarone) 200 mg BID PO Last administered on 10/13/18 08:55; Admin Dose 200 MG; Start 10/08/18 at 21:00 Apixaban (Eliquis) 2.5 mg BID PO Last administered on 10/13/18 08:53; Admin Dose 2.5 MG; Start 10/08/18 at 21:00 Diltiazem HCl (Cardizem Cd) 240 mg DAILY PO Last administered on 10/13/18 08:56; Admin Dose 240 MG; Start 10/09/18 at 09:00 Folic Acid (Folic Acid) 1 mg DAILY PO Last administered on 10/13/18 08:54; Admin Dose 1 MG; Start 10/09/18 at 09:00 Famotidine (Pepcid) 20 mg BID PO Last administered on 10/13/18 08:54; Admin Dose 20 MG; Start 10/08/18 at 21:00 Hydromorphone HCl (Dilaudid) 1 mg Q4H PRN IV SEVERE PAIN LEVEL 7-10; Start 10/08/18 at 17:00 Multivit/Ca Carb/ B Cmplx/FA/Prenat (Flor-Elisa) 1 tab DAILY PO Last administe red on 10/13/18 08:54; Admin Dose 1 TAB; Start 10/09/18 at 09:00 Magnesium Hydroxide (Milk Of Mag) 30 ml DAILY PRN PO CONSTIPATION; Start 10/08/18 at 17:00 Docusate Sodium (Colace) 100 mg DAILY PO Last administered on 10/13/18 08:51; Admin Dose 100 MG; Start 10/09/18 at 09:00 Tacrolimus (Prograf) 0.5 mg BID PO Last administered on 10/13/18 08:54; Admin Dose 0.5 MG; Start 10/12/18 at 09:00 Gabapentin (Neurontin) 100 mg HS PO Last administered on 10/12/18 20:55; Admin Dose 100 MG; Start 10/12/18 at 21:00 Sodium Chloride 1,000 ml @ 50 mls/hr Q20H IV Last administered on 10/13/18 10:50; Admin Dose 50 MLS/HR; Start 10/12/18 at 14:00 Cinacalcet (Sensipar) 30 mg DAILY PO Last administered on 10/13/18 08:54; Admin Dose 30 MG; Start 10/12/18 at 14:00 BARRY KUMAR MD Oct 13, 2018 16:23
[2018-10-13 20:11] VITALS: BP 130/79; PULSE 86; RESP 18
[2018-10-13] MEDS: GABAPENTIN 100 MG CAP PO SCH (20:11)
--- NOTE | 2018-10-13 21:54 | CONS ---
Assessment/Plan Assessment/Plan Hospital Course (Demo Recall) # sepsis, muskuloskeletal, derm - h/o sepsis due infected left BKA stump - h/o infected L BKA stump site - h/o further revision of L BKA site and wound vac placement on 10/02/2018. Path showed gangrenous necrosis of skin and subcutaneous tissue, fibrous connective tissue and skeletal muscle tissue with focal necrosis, segment of bone with no evidence of osteomyelitis - h/o exploration and washout, debridement and VAC placement to L infected BKA site on 09/19/2018; The superficial wound culture grew B. fragilis on 09/18/2018; the intra-operative culture grew coag neg staph and B. fragilis on 09/19/18. CoNS was a likely colonizer; Pt took levofloxacin and metronidazole (09/17/2018- 10/04/2018) for these. The intra-operative fungal culture on 09/19/18 grew A. versicolor group, submitted reference lab for sensitivity; Pt took ambisome (10/02/2018-10/06/2018); the path was negative for malignancy. - h/o L BKA on 09/13/2018 - h/o draining wound, necrosis and infection of L TMA site (prior to L BKA). ESR 121 on 09/12/2018. # renal, cardiac - h/o renal transplant at [facility] in 2006, maintained on tacrolimus - h/o immunocompromised status - A fib with RVR, converted to SR - TWIN, multifactorial: Ambisome, tacrolimus, recent sepsis # other conditions - h/o transaminitis - adverse reaction to cefazolin (hives), meropenem (pruritus) recommendations: - I requested that Pt's RN take pictures of the wound at the next wound VAC change again on 10/15/2018 - monitor the wound closely off antibiotics management d/w Pt and his RN Consultation Date/Type/Reason Admit Date/Time Oct 08, 2018 at 16:11 Initial Consult Date 10/08/18 Type of Consult ID Requesting Provider: [facility]AY [facility] Date/Time of Note DATE: 10/13/18 TIME: 21:49 24 HR Interval Summary Subjective hx not possible: other (Pt was asleep) Exam/Review of Systems Exam Vitals Vital Signs Date Temp Pulse Resp B/P (MAP) Pulse Ox O2 O2 Flow FiO2 Time Delivery Rate 10/13/18 98.0 86 18 130/79 99 Room Air 20:11 (96) Intake and Output 10/12/18 10/12/18 10/13/18 1515:00 23:00 07:00 IntakeIntake Total 940 ml 600 ml OutputOutput Total 0 ml 200 ml 600 ml BalanceBalance 0 ml 740 ml 0 ml Constitutional: other (asleep) Psych: other (asleep) Head: normocephalic, atraumatic Eyes: nl conjunctiva, nl lids ENMT: nl external ears & nose, nl nasal mucosa & septum Neck: other (not swollen) Respiratory: clear to auscultation, normal air movement Cardiovascular: regular rate and rhythm, nl pulses Gastrointestinal: No distended Musculoskeletal: other (s/p L BKA, wound VAC and dressing are on) Extremities: No edema 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: other (asleep) Skin: nl turgor; No rash or lesions Results Result Diagram: 10/13/1861210/13/1813 Results 24hrs Laboratory Tests Test 10/13/18 06:13 White Blood Count 4.7 L Red Blood Count 3.51 L Hemoglobin 10.0 L Hematocrit 31.5 L Mean Corpuscular Volume 89.7 Mean Corpuscular Hemoglobin 28.5 L Mean Corpuscular Hemoglobin Concent 31.7 L Red Cell Distribution Width 21.1 H Platelet Count 226 Mean Platelet Volume 10.5 H Immature Granulocytes % 1.300 H Neutrophils % 48.1 Lymphocytes % 21.4 Monocytes % 15.7 H Eosinophils % 12.7 H Basophils % 0.8 Nucleated Red Blood Cells % 0.0 Immature Granulocytes # 0.060 H Neutrophils # 2.3 Lymphocytes # 1.0 Monocytes # 0.7 Eosinophils # 0.6 H Basophils # 0.0 Nucleated Red Blood Cells # 0.0 Sodium Level 140 Potassium Level 4.1 Chloride Level 107 Carbon Dioxide Level 26 Anion Gap 7 Blood Urea Nitrogen 25 H Creatinine 1.80 H Est Glomerular Filtrat Rate mL/min 39 L Glucose Level 97 Calcium Level 10.2 Phosphorus Level 2.8 Magnesium Level 2.0 Total Bilirubin 0.4 Direct Bilirubin 0.00 Indirect Bilirubin 0.4 Aspartate Amino Transf (AST/SGOT) 63 H Alanine Aminotransferase (ALT/SGPT) 50 Alkaline Phosphatase 164 H Total Protein 6.6 Albumin 3.4 Globulin 3.20 Albumin/Globulin Ratio 1.06 Medications Medication Current Medications Miscellaneous Information (Pending [facility] Order For Wound Care) This patient yi... PRN PRN XX WOUND CARE; Start 10/08/18 at 17:00 Acetaminophen (Tylenol Tab) 650 mg Q6H PRN PO MILD PAIN(1-3)OR ELEVATED TEMP; Start 10/08/18 at 17:00 Amiodarone HCl (Cordarone) 200 mg BID PO Last administered on 10/13/18 20:12; Admin Dose 200 MG; Start 10/08/18 at 21:00 Apixaban (Eliquis) 2.5 mg BID PO Last administered on 10/13/18 20:12; Admin Dose 2.5 MG; Start 10/08/18 at 21:00 Diltiazem HCl (Cardizem Cd) 240 mg DAILY PO Last administered on 10/13/18 08:56; Admin Dose 240 MG; Start 10/09/18 at 09:00 Folic Acid (Folic Acid) 1 mg DAILY PO Last administered on 10/13/18 08:54; Admin Dose 1 MG; Start 10/09/18 at 09:00 Famotidine (Pepcid) 20 mg BID PO Last administered on 10/13/18 20:13; Admin Dose 20 MG; Start 10/08/18 at 21:00 Hydromorphone HCl (Dilaudid) 1 mg Q4H PRN IV SEVERE PAIN LEVEL 7-10; Start 10/08/18 at 17:00 Multivit/Ca Carb/ B Cmplx/FA/Prenat (Flor-Elisa) 1 tab DAILY PO Last administered on 10/13/18 08:54; Admin Dose 1 TAB; Start 10/09/18 at 09:00 Magnesium Hydroxide (Milk Of Mag) 30 ml DAILY PRN PO CONSTIPATION; Start 10/08/18 at 17:00 Docusate Sodium (Colace) 100 mg DAILY PO Last administered on 10/13/18 08:51; Admin Dose 100 MG; Start 10/09/18 at 09:00 Tacrolimus (Prograf) 0.5 mg BID PO Last administered on 10/13/18 20:12; Admin Dose 0.5 MG; Start 10/12/18 at 09:00 Gabapentin (Neurontin) 100 mg HS PO Last administered on 10/13/18at 20:11; Admin Dose 100 MG; Start 10/12/18 at 21:00 Sodium Chloride 1,000 ml @ 50 mls/hr Q20H IV Last administered on 10/13/18at 10:50; Admin Dose 50 MLS/HR; Start 10/12/18 at 14:00 Cinacalcet (Sensipar) 30 mg DAILY PO Last administered on 10/13/18at 08:54; Admin Dose 30 MG; Start 10/12/18 at 14:00 CLARE IRBY M.D. Oct 13, 2018 21:54
[2018-10-14 02:00] VITALS: BP 151/76; PULSE 84; RESP 18
[2018-10-14] MEDS: SOD CHLORIDE 0.9% 1,000 ML IV SCH (07:15)
[2018-10-14 07:30] VITALS: BP 138/82; PULSE 78; RESP 20
--- NOTE | 2018-10-14 09:50 | PN ---
Date/Time of Note Date/Time of Note DATE: 10/14/18 TIME: 09:47 Objective Vital Signs Date Temp Pulse Resp B/P (MAP) Pulse Ox O2 O2 Flow FiO2 Time Delivery Rate 10/14/18 97.8 78 20 138/82 99 Room Air 07:30 (100) Intake and Output 10/13/18 10/13/18 10/14/18 1515:00 23:00 07:00 IntakeIntake Total 300 ml 1380 ml 620 ml OutputOutput Total 760 ml 950 ml BalanceBalance 300 ml 620 ml -330 ml Exam INTERDISCIPLINARY TEAM CONFERENCE Attended by PT, OT, ST, Stitch Bonding Machine Tender Helper, Social Work, Rehabilitation Nursing, Oil Well Directional Surveyor and Ict TeacherPlate Sensitizer Exam: Pulm- cta Abd-soft BOWEL- Cont BLADDER-Cont SKIN- improving; wound vac OT- DRESSING- sba/cga BATHING-sba/cga TOILETING-cga PT- BED MOBILITY-sba TRANSFERS-cga AMBULATION-cga A/P- Interdisciplinary team conference held today. Please see interdisciplinary sheet. Working toward d.c. on 10/22 with post discharge follow up of physical therapy, occupational therapy. Results/Medications Result Diagram: 10/14/18 0608 10/14/18 0608 Results 24 hrs Laboratory Tests Test 10/14/18 06:08 White Blood Count 4.4 L Red Blood Count 3.49 L Hemoglobin 9.8 L Hematocrit 31.1 L Mean Corpuscular Volume 89.1 Mean Corpuscular Hemoglobin 28.1 L Mean Corpuscular Hemoglobin Concent 31.5 L Red Cell Distribution Width 21.2 H Platelet Count 200 Mean Platelet Volume 10.0 Immature Granulocytes % 1.100 H Neutrophils % 46.4 Lymphocytes % 20.9 Monocytes % 17.4 H Eosinophils % 13.1 H Basophils % 1.1 Nucleated Red Blood Cells % 0.0 Immature Granulocytes # 0.050 H Neutrophils # 2.0 Lymphocytes # 0.9 Monocytes # 0.8 Eosinophils # 0.6 H Basophils # 0.1 Nucleated Red Blood Cells # 0.0 Sodium Level 141 Potassium Level 3.9 Chloride Level 110 Carbon Dioxide Level 24 Anion Gap 7 Blood Urea Nitrogen 20 Creatinine 1.53 H Est Glomerular Filtrat Rate mL/min 47 L Glucose Level 87 Calcium Level 9.4 Phosphorus Level 2.2 L Magnesium Level 1.8 Total Bilirubin 0.5 Direct Bilirubin 0.00 Indirect Bilirubin 0.5 Aspartate Amino Transf (AST/SGOT) 64 H Alanine Aminotransferase (ALT/SGPT) 42 Alkaline Phosphatase 144 H Total Protein 6.4 Albumin 3.2 L Globulin 3.20 Albumin/Globulin Ratio 1.00 Medications Current Medications Miscellaneous Information (Pending [facility] Order For Wound Care) This patient yi... PRN PRN XX WOUND CARE; Start 10/08/18 at 17:00 Acetaminophen (Tylenol Tab) 650 mg Q6H PRN PO MILD PAIN(1-3)OR ELEVATED TEMP; Start 10/08/18 at 17:00 Amiodarone HCl (Cordarone) 200 mg BID PO Last administered on 10/13/18 20:12; Admin Dose 200 MG; Start 10/08/18 at 21:00 Apixaban (Eliquis) 2.5 mg BID PO Last administered on 10/13/18 20:12; Admin Dose 2.5 MG; Start 10/08/18 at 21:00 Diltiazem HCl (Cardizem Cd) 240 mg DAILY PO Last administered on 10/13/18 08:56; Admin Dose 240 MG; Start 10/09/18 at 09:00 Folic Acid (Folic Acid) 1 mg DAILY PO Last administered on 10/13/18 08:54; Admin Dose 1 MG; Start 10/09/18 at 09:00 Famotidine (Pepcid) 20 mg BID PO Last administered on 10/13/18 20:13; Admin Dose 20 MG; Start 10/08/18 at 21:00 Hydromorphone HCl (Dilaudid) 1 mg Q4H PRN IV SEVERE PAIN LEVEL 7-10; Start 10/08/18 at 17:00 Multivit/Ca Carb/ B Cmplx/FA/Prenat (Flor-Elisa) 1 tab DAILY PO Last administered on 10/13/18 08:54; Admin Dose 1 TAB; Start 10/09/18 at 09:00 Magnesium Hydroxide (Milk Of Mag) 30 ml DAILY PRN PO CONSTIPATION; Start 10/08/18 at 17:00 Docusate Sodium (Colace) 100 mg DAILY PO Last administered on 10/13/18 08:51; Admin Dose 100 MG; Start 10/09/18 at 09:00 Tacrolimus (Prograf) 0.5 mg BID PO Last administered on 10/13/18 20:12; Admin Dose 0.5 MG; Start 10/12/18 at 09:00 Gabapentin (Neurontin) 100 mg HS PO Last administered on 10/13/18at 20:11; Admin Dose 100 MG; Start 10/12/18 at 21:00 Sodium Chloride 1,000 ml @ 50 mls/hr Q20H IV Last administered on 10/14/18 07:15; Admin Dose 50 MLS/HR; Start 10/12/18 at 14:00 Cinacalcet (Sensipar) 30 mg DAILY PO Last administered on 10/13/18 08:54; Admin Dose 30 MG; Start 10/12/18 at 14:00 MERNA CALHOUN MD Oct 14, 2018 09:50
[2018-10-14] MEDS: FOLIC ACID 1 MG TAB PO SCH (09:58)
[2018-10-14] MEDS: DOCUSATE SODIUM 100 MG CAP PO SCH (09:58)
[2018-10-14] MEDS: APIXABAN 5 MG TABLET PO SCH ×2 (09:59→20:31)
[2018-10-14] MEDS: TACROLIMUS 0.5 MG CAP PO SCH ×2 (09:59→20:32)
[2018-10-14] MEDS: FAMOTIDINE 20 MG TAB PO SCH ×2 (09:59→20:32)
[2018-10-14] MEDS: CINACALCET 30 MG TAB PO SCH (10:00)
[2018-10-14] MEDS: MULTIVIT/CA CARB/B CMPLX/FA TAB PO SCH (10:00)
[2018-10-14] MEDS: DILTIAZEM (CD) 240 MG CAP PO SCH (10:01)
[2018-10-14] MEDS: AMIODARONE 200 MG TAB PO SCH ×2 (10:02→20:32)
--- NOTE | 2018-10-14 11:31 | PN ---
Date/Time of Note Date/Time of Note DATE: 10/14/18 TIME: 11:27 Assessment/Plan VTE Prophylaxis Risk score (from Ns)>0 risk: 3 SCD applied (from [facility]): No SCD contraindicated: other Pharmacological prophylaxis: apixaban Lines/Catheters [facility] (from [facility] Peripheral IV Urinary Cath still in place: No Assessment/Plan Hospital Course SUBJECTIVE: No acute distress. OBJECTIVE: Vital signs-see below PHYSICAL EXAM: Constitutional: Adequately built,not in acute distress. HEENT: Head atraumatic and normocephalic. Eyes: Extraocular muscles intact. Anicteric sclerae. Pupils equal bilaterally, reactive to light. NECK: Supple without lymph node. CHEST: Clear and good breath sounds equally. No wheezing. No rhonchi. HEART: S1, S2. Regular rate and rhythm. ABDOMEN: Soft/non tender with no rebound tenderness. Bowel sounds were present. EXTREMITIES: L BKA stump/dressing c/d/i. No cyanosis, clubbing or edema. NEUROLOGIC: Alert and oriented x3. No focal deficit. No sensory deficit. PSYCHOSOCIAL: No signs of depression. INTEGUMENTARY: No open wounds. ASSESSMENT AND PLAN: Severe left peripheral artery disease with infected left TMA stump- stable - s/p Urgent left below-knee amputation on 09/13/2018 with washout. Further revision on 10/02. - on Eliquis - off Antibiotics A. fib -s/p cards review-> Continue on amiodarone until 10/20, 1 month tx. continue on diltiazem -cont ATC S/p Sepsis secondary to lower extremity infection - s/p abx completion Peripheral vascular disease. - Continue statins History of renal transplant. - nephrology on board and appreciate recommendations. - avoiding nephrotoxic agents - continue immunosuppressants Normocytic anemia - stable HLD - on statin DVT Prophylaxis: José Miguel Patient was seen in collaboration with Dr. Landaverde Result Diagram: 10/14/18 0608 10/14/18 0608 Results 24hrs Laboratory Tests Test 10/14/18 06:08 White Blood Count 4.4 L Red Blood Count 3.49 L Hemoglobin 9.8 L Hematocrit 31.1 L Mean Corpuscular Volume 89.1 Mean Corpuscular Hemoglobin 28.1 L Mean Corpuscular Hemoglobin Concent 31.5 L Red Cell Distribution Width 21.2 H Platelet Count 200 Mean Platelet Volume 10.0 Immature Granulocytes % 1.100 H Neutrophils % 46.4 Lymphocytes % 20.9 Monocytes % 17.4 H Eosinophils % 13.1 H Basophils % 1.1 Nucleated Red Blood Cells % 0.0 Immature Granulocytes # 0.050 H Neutrophils # 2.0 Lymphocytes # 0.9 Monocytes # 0.8 Eosinophils # 0.6 H Basophils # 0.1 Nucleated Red Blood Cells # 0.0 Sodium Level 141 Potassium Level 3.9 Chloride Level 110 Carbon Dioxide Level 24 Anion Gap 7 Blood Urea Nitrogen 20 Creatinine 1.53 H Est Glomerular Filtrat Rate mL/min 47 L Glucose Level 87 Calcium Level 9.4 Phosphorus Level 2.2 L Magnesium Level 1.8 Total Bilirubin 0.5 Direct Bilirubin 0.00 Indirect Bilirubin 0.5 Aspartate Amino Transf (AST/SGOT) 64 H Alanine Aminotransferase (ALT/SGPT) 42 Alkaline Phosphatase 144 H Total Protein 6.4 Albumin 3.2 L Globulin 3.20 Albumin/Globulin Ratio 1.00 Exam/Review of Systems Exam Vitals Vital Signs Date Temp Pulse Resp B/P (MAP) Pulse Ox O2 O2 Flow FiO2 Time Delivery Rate 10/14/18 97.8 78 20 138/82 99 Room Air 07:30 (100) Intake and Output 10/13/18 10/13/18 10/14/18 1515:00 23:00 07:00 IntakeIntake Total 300 ml 1380 ml 620 ml OutputOutput Total 760 ml 950 ml BalanceBalance 300 ml 620 ml -330 ml Results Results 24hrs Laboratory Tests Test 10/14/18 06:08 White Blood Count 4.4 L Red Blood Count 3.49 L Hemoglobin 9.8 L Hematocrit 31.1 L Mean Corpuscular Volume 89.1 Mean Corpuscular Hemoglobin 28.1 L Mean Corpuscular Hemoglobin Concent 31.5 L Red Cell Distribution Width 21.2 H Platelet Count 200 Mean Platelet Volume 10.0 Immature Granulocytes % 1.100 H Neutrophils % 46.4 Lymphocytes % 20.9 Monocytes % 17.4 H Eosinophils % 13.1 H Basophils % 1.1 Nucleated Red Blood Cells % 0.0 Immature Granulocytes # 0.050 H Neutrophils # 2.0 Lymphocytes # 0.9 Monocytes # 0.8 Eosinophils # 0.6 H Basophils # 0.1 Nucleated Red Blood Cells # 0.0 Sodium Level 141 Potassium Level 3.9 Chloride Level 110 Carbon Dioxide Level 24 Anion Gap 7 Blood Urea Nitrogen 20 Creatinine 1.53 H Est Glomerular Filtrat Rate mL/min 47 L Glucose Level 87 Calcium Level 9.4 Phosphorus Level 2.2 L Magnesium Level 1.8 Total Bilirubin 0.5 Direct Bilirubin 0.00 Indirect Bilirubin 0.5 Aspartate Amino Transf (AST/SGOT) 64 H Alanine Aminotransferase (ALT/SGPT) 42 Alkaline Phosphatase 144 H Total Protein 6.4 Albumin 3.2 L Globulin 3.20 Albumin/Globulin Ratio 1.00 Medications Medication Current Medications Miscellaneous Information (Pending [facility]yl Order For Wound Care) This patient yi... PRN PRN XX WOUND CARE; Start 10/08/18 at 17:00 Acetaminophen (Tylenol Tab) 650 mg Q6H PRN PO MILD PAIN(1-3)OR ELEVATED TEMP; Start 10/08/18 at 17:00 Amiodarone HCl (Cordarone) 200 mg BID PO Last administered on 10/14/18 10:02; Admin Dose 200 MG; Start 10/08/18 at 21:00 Apixaban (Eliquis) 2.5 mg BID PO Last administered on 10/14/18 09:59; Admin Dose 2.5 MG; Start 10/08/18 at 21:00 Diltiazem HCl (Cardizem Cd) 240 mg DAILY PO Last administered on 10/14/18 10:01; Admin Dose 240 MG; Start 10/09/18 at 09:00 Folic Acid (Folic Acid) 1 mg DAILY PO Last administered on 10/14/18 09:58; Admin Dose 1 MG; Start 10/09/18 at 09:00 Famotidine (Pepcid) 20 mg BID PO Last administered on 10/14/18 09:59; Admin Dose 20 MG; Start 10/08/18 at 21:00 Hydromorphone HCl (Dilaudid) 1 mg Q4H PRN IV SEVERE PAIN LEVEL 7-10; Start 10/08/18 at 17:00 Multivit/Ca Carb/ B Cmplx/FA/Prenat (Flor-Elisa) 1 tab DAILY PO Last administered on 10/14/18 10:00; Admin Dose 1 TAB; Start 10/09/18 at 09:00 Magnesium Hydroxide (Milk Of Mag) 30 ml DAILY PRN PO CONSTIPATION; Start 10/08/18 at 17:00 Docusate Sodium (Colace) 100 mg DAILY PO Last administered on 10/14/18 09:58; Admin Dose 100 MG; Start 10/09/18 at 09:00 Tacrolimus (Prograf) 0.5 mg BID PO Last administered on 10/14/18 09:59; Admin Dose 0.5 MG; Start 10/12/18 at 09:00 Gabapentin (Neurontin) 100 mg HS PO Last administered on 10/13/18at 20:11; Admin Dose 100 MG; Start 10/12/18 at 21:00 Sodium Chloride 1,000 ml @ 50 mls/hr Q20H IV Last administered on 10/14/18 07:15; Admin Dose 50 MLS/HR; Start 10/12/18 at 14:00 Cinacalcet (Sensipar) 30 mg DAILY PO Last administered on 10/14/18at 10:00; Admin Dose 30 MG; Start 10/12/18 at 14:00 WILTON ACKERMAN NP Oct 14, 2018 11:31
--- NOTE | 2018-10-14 11:36 | CONS ---
Assessment/Plan Assessment/Plan Hospital Course (Demo Recall) # sepsis, muskuloskeletal, derm - h/o sepsis due infected left BKA stump - h/o infected L BKA stump site - h/o further revision of L BKA site and wound vac placement on 10/02/2018. Path showed gangrenous necrosis of skin and subcutaneous tissue, fibrous connective tissue and skeletal muscle tissue with focal necrosis, segment of bone with no evidence of osteomyelitis - h/o exploration and washout, debridement and VAC placement to L infected BKA site on 09/19/2018; The superficial wound culture grew B. fragilis on 09/18/2018; the intra-operative culture grew coag neg staph and B. fragilis on 09/19/18. CoNS was a likely colonizer; Pt took levofloxacin and metronidazole (09/17/2018- 10/04/2018) for these. The intra-operative fungal culture on 09/19/18 grew A. versicolor group, submitted reference lab for sensitivity; Pt took ambisome (10/02/2018-10/06/2018); the path was negative for malignancy. - h/o L BKA on 09/13/2018 - h/o draining wound, necrosis and infection of L TMA site (prior to L BKA). ESR 121 on 09/12/2018. # renal, cardiac - h/o renal transplant at [facility] in 2006, maintained on tacrolimus - h/o immunocompromised status - A fib with RVR, converted to SR - TWIN, multifactorial: Ambisome, tacrolimus, recent sepsis # other conditions - h/o transaminitis - adverse reaction to cefazolin (hives), meropenem (pruritus) recommendations: - monitor the wound closely off antibiotics - we requested that Pt's RN take pictures of the wound at the next wound VAC change again on 10/15/2018 (I asked pt's RN to follow up) - continue local wound care/wound VAC Management d/w patient, XAVIER Mcintyre, and with Dr. Bailey Consultation Date/Type/Reason Admit Date/Time Oct 08, 2018 at 16:11 Initial Consult Date 10/08/18 Type of Consult Infectious Disease Requesting Provider: FITO GAY MD, [facility] Date/Time of Note DATE: 10/14/18 TIME: 11:27 24 HR Interval Summary Free Text/Dictation "They have problem with my IV". S/p attempt to place HL this AM per d/w nursing. IVF currently pending new HL placement. C/o minimal LLE pain. No SOB, abd pain, n/v/d, dysuria. Exam/Review of Systems Exam Vitals Vital Signs Date Temp Pulse Resp B/P (MAP) Pulse Ox O2 O2 Flow FiO2 Time Delivery Rate 10/14/18 97.8 78 20 138/82 99 Room Air 07:30 (100) Intake and Output 10/13/18 10/13/18 10/14/18 1515:00 23:00 07:00 IntakeIntake Total 300 ml 1380 ml 620 ml OutputOutput Total 760 ml 950 ml BalanceBalance 300 ml 620 ml -330 ml Constitutional: alert, oriented, well developed, other (sitting in W/C in NAD) Psych: no complaints Head: normocephalic, atraumatic Eyes: nl conjunctiva, nl lids ENMT: nl external ears & nose, nl lips & teeth, nl nasal mucosa & septum, mucosa pink and moist Neck: supple Respiratory: clear to auscultation, normal air movement; No wheezing Cardiovascular: regular rate and rhythm, nl pulses Gastrointestinal: soft, non-tender; No distended Musculoskeletal: other (S/p L BKA with wound VAC in place) Extremities: No edema 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: nl mental status, nl speech Skin: nl turgor, other (BUE old AVF noted; nurses notes and photos from 10/12/2018 noted); No rash or lesions Results Result Diagram: 10/14/18 0608 10/14/18 0608 Results 24hrs Laboratory Tests Test 10/14/18 06:08 White Blood Count 4.4 L Red Blood Count 3.49 L Hemoglobin 9.8 L Hematocrit 31.1 L Mean Corpuscular Volume 89.1 Mean Corpuscular Hemoglobin 28.1 L Mean Corpuscular Hemoglobin Concent 31.5 L Red Cell Distribution Width 21.2 H Platelet Count 200 Mean Platelet Volume 10.0 Immature Granulocytes % 1.100 H Neutrophils % 46.4 Lymphocytes % 20.9 Monocytes % 17.4 H Eosinophils % 13.1 H Basophils % 1.1 Nucleated Red Blood Cells % 0.0 Immature Granulocytes # 0.050 H Neutrophils # 2.0 Lymphocytes # 0.9 Monocytes # 0.8 Eosinophils # 0.6 H Basophils # 0.1 Nucleated Red Blood Cells # 0.0 Sodium Level 141 Potassium Level 3.9 Chloride Level 110 Carbon Dioxide Level 24 Anion Gap 7 Blood Urea Nitrogen 20 Creatinine 1.53 H Est Glomerular Filtrat Rate mL/min 47 L Glucose Level 87 Calcium Level 9.4 Phosphorus Level 2.2 L Magnesium Level 1.8 Total Bilirubin 0.5 Direct Bilirubin 0.00 Indirect Bilirubin 0.5 Aspartate Amino Transf (AST/SGOT) 64 H Alanine Aminotransferase (ALT/SGPT) 42 Alkaline Phosphatase 144 H Total Protein 6.4 Albumin 3.2 L Globulin 3.20 Albumin/Globulin Ratio 1.00 Imaging Imaging Renal US 10/11/2018: 1. Right lower quadrant renal transplant graft demonstrating nephrolithiasis, but no hydronephrosis. 2. Normal renal cortical thickness of the transplant graft. 3. No acute abnormality demonstrated. No Doppler examination performed. Medications Medication Current Medications Miscellaneous Information (Pending Santyl Order For Wound Care) This patient yi... PRN PRN XX WOUND CARE; Start 10/08/18 at 17:00 Acetaminophen (Tylenol Tab) 650 mg Q6H PRN PO MILD PAIN(1-3)OR ELEVATED TEMP; Start 10/08/18 at 17:00 Amiodarone HCl (Cordarone) 200 mg BID PO Last administered on 10/14/18 10:02; Admin Dose 200 MG; Start 10/08/18 at 21:00 Apixaban (Eliquis) 2.5 mg BID PO Last administered on 10/14/18 09:59; Admin Dose 2.5 MG; Start 10/08/18 at 21:00 Diltiazem HCl (Cardizem Cd) 240 mg DAILY PO Last administered on 10/14/18 10:01; Admin Dose 240 MG; Start 10/09/18 at 09:00 Folic Acid (Folic Acid) 1 mg DAILY PO Last administered on 10/14/18 09:58; Admin Dose 1 MG; Start 10/09/18 at 09:00 Famotidine (Pepcid) 20 mg BID PO Last administered on 10/14/18 09:59; Admin Dose 20 MG; Start 10/08/18 at 21:00 Hydromorphone HCl (Dilaudid) 1 mg Q4H PRN IV SEVERE PAIN LEVEL 7-10; Start 10/08/18 at 17:00 Multivit/Ca Carb/ B Cmplx/FA/Prenat (Flor-Elisa) 1 tab DAILY PO Last administered on 10/14/18at 10:00; Admin Dose 1 TAB; Start 10/09/18 at 09:00 Magnesium Hydroxide (Milk Of Mag) 30 ml DAILY PRN PO CONSTIPATION; Start 10/08/18 at 17:00 Docusate Sodium (Colace) 100 mg DAILY PO Last administered on 10/14/18at 09:58; Admin Dose 100 MG; Start 10/09/18 at 09:00 Tacrolimus (Prograf) 0.5 mg BID PO Last administered on 10/14/18 09:59; Admin Dose 0.5 MG; Start 10/12/18 at 09:00 Gabapentin (Neurontin) 100 mg HS PO Last administered on 10/13/18at 20:11; Admin Dose 100 MG; Start 10/12/18 at 21:00 Sodium Chloride 1,000 ml @ 50 mls/hr Q20H IV Last administered on 10/14/18at 07:15; Admin Dose 50 MLS/HR; Start 10/12/18 at 14:00 Cinacalcet (Sensipar) 30 mg DAILY PO Last administered on 10/14/18 10:00; Admin Dose 30 MG; Start 10/12/18 at 14:00 ROSALBA MARTI NP Oct 14, 2018 11:36
[2018-10-14 14:00] VITALS: BP 133/80; PULSE 82; RESP 18
[2018-10-14] MEDS: HYDROmorphONE 1 MG/ML SYG IV PRN (17:17)
[2018-10-14] MEDS: COLLAGENASE 5 GM (UD JAR) TOP SCH (17:21)
[2018-10-14 20:17] VITALS: BP 133/77; PULSE 73; RESP 18
[2018-10-14] MEDS: GABAPENTIN 100 MG CAP PO SCH (20:32)
--- NOTE | 2018-10-14 21:16 | CONS ---
Assessment/Plan Assessment/Plan Hospital Course (Demo Recall) 1. Kidney transplant status. He underwent a cadaveric kidney transplant in 2006 at [facility]. He is on immunosuppressive therapy. His serum creatinine had risen to as high as 1.82 mg/dL although is less today. His renal function is improving. We are aiming for a tacrolimus trough level of 5. 2. Anemia 3. Hypertension 4. Peripheral artery disease status post left below the knee amputation. The wound is healing . He is now on the acute rehab unit for a comprehensive rehabilitation program . 5. Hyperparathyroidism with elevated serum calcium. He is on calcitriol which I will discontinue because of the elevated calcium. He is now on cinacalcet. 6. Hypomagnesemia and hypophosphatemia due to tacrolimus causing losses through the kidney.. His serum phosphorus and serum magnesium are lower today. I will restart oral phosphorus tablets and oral magnesium tablets to start tomorrow.. Consultation Date/Type/Reason Admit Date/Time Oct 08, 2018 at 16:11 Initial Consult Date 10/08/18 Type of Consult Nephrology Requesting Provider: FITO GAY MD, [facility] Date/Time of Note DATE: 10/14/18 TIME: 21:08 24 HR Interval Summary Free Text/Dictation Patient is awake and alert. He is being seen in nephrologic follow-up. He has no new complaints. Constitutional: no complaints, improved Exam/Review of Systems Exam Vitals Vital Signs Date Temp Pulse Resp B/P (MAP) Pulse Ox O2 O2 Flow FiO2 Time Delivery Rate 10/14/18 98.2 73 18 133/77 99 Room Air 20:17 (95) Intake and Output 10/13/18 10/13/18 10/14/18 1515:00 23:00 07:00 IntakeIntake Total 300 ml 1380 ml 620 ml OutputOutput Total 760 ml 950 ml BalanceBalance 300 ml 620 ml -330 ml Exam He is status post a left below the knee amputation. Constitutional: alert, oriented, frail Respiratory: clear to auscultation, normal air movement Cardiovascular: regular rate and rhythm Gastrointestinal: soft, non-tender Results Result Diagram: 10/14/18 0608 10/14/18 0608 Results 24hrs Laboratory Tests Test 10/14/18 06:08 White Blood Count 4.4 L Red Blood Count 3.49 L Hemoglobin 9.8 L Hematocrit 31.1 L Mean Corpuscular Volume 89.1 Mean Corpuscular Hemoglobin 28.1 L Mean Corpuscular Hemoglobin Concent 31.5 L Red Cell Distribution Width 21.2 H Platelet Count 200 Mean Platelet Volume 10.0 Immature Granulocytes % 1.100 H Neutrophils % 46.4 Lymphocytes % 20.9 Monocytes % 17.4 H Eosinophils % 13.1 H Basophils % 1.1 Nucleated Red Blood Cells % 0.0 Immature Granulocytes # 0.050 H Neutrophils # 2.0 Lymphocytes # 0.9 Monocytes # 0.8 Eosinophils # 0.6 H Basophils # 0.1 Nucleated Red Blood Cells # 0.0 Sodium Level 141 Potassium Level 3.9 Chloride Level 110 Carbon Dioxide Level 24 Anion Gap 7 Blood Urea Nitrogen 20 Creatinine 1.53 H Est Glomerular Filtrat Rate mL/min 47 L Glucose Level 87 Calcium Level 9.4 Phosphorus Level 2.2 L Magnesium Level 1.8 Total Bilirubin 0.5 Direct Bilirubin 0.00 Indirect Bilirubin 0.5 Aspartate Amino Transf (AST/SGOT) 64 H Alanine Aminotransferase (ALT/SGPT) 42 Alkaline Phosphatase 144 H Total Protein 6.4 Albumin 3.2 L Globulin 3.20 Albumin/Globulin Ratio 1.00 Medications Medication Current Medications Miscellaneous Information (Pending [facility] Order For Wound Care) This patient yi... PRN PRN XX WOUND CARE; Start 10/08/18 at 17:00 Acetaminophen (Tylenol Tab) 650 mg Q6H PRN PO MILD PAIN(1-3)OR ELEVATED TEMP; Start 10/08/18 at 17:00 Amiodarone HCl (Cordarone) 200 mg BID PO Last administered on 10/14/18at 20:32; Admin Dose 200 MG; Start 10/08/18 at 21:00 Apixaban (Eliquis) 2.5 mg BID PO Last administered on 10/14/18at 20:31; Admin Dose 2.5 MG; Start 10/08/18 at 21:00 Diltiazem HCl (Cardizem Cd) 240 mg DAILY PO Last administered on 10/14/18at 10:01; Admin Dose 240 MG; Start 10/09/18 at 09:00 Folic Acid (Folic Acid) 1 mg DAILY PO Last administered on 10/14/18at 09:58; Admin Dose 1 MG; Start 6/26/19 at 09:00 Famotidine (Pepcid) 20 mg BID PO Last administered on 10/14/18 20:32; Admin Dose 20 MG; Start 10/08/18 at 21:00 Hydromorphone HCl (Dilaudid) 1 mg Q4H PRN IV SEVERE PAIN LEVEL 7-10 Last administered on 10/14/18 17:17; Admin Dose 1 MG; Start 10/08/18 at 17:00 Multivit/Ca Carb/ B Cmplx/FA/Prenat (Flor-Elisa) 1 tab DAILY PO Last administered on 10/14/18 10:00; Admin Dose 1 TAB; Start 10/09/18 at 09:00 Magnesium Hydroxide (Milk Of Mag) 30 ml DAILY PRN PO CONSTIPATION; Start 10/08/18 at 17:00 Docusate Sodium (Colace) 100 mg DAILY PO Last administered on 10/14/18 09:58; Admin Dose 100 MG; Start 10/09/18 at 09:00 Tacrolimus (Prograf) 0.5 mg BID PO Last administered on 10/14/18 20:32; Admin Dose 0.5 MG; Start 10/12/18 at 09:00 Gabapentin (Neurontin) 100 mg HS PO Last administered on 10/14/18 20:32; Admin Dose 100 MG; Start 10/12/18 at 21:00 Sodium Chloride 1,000 ml @ 50 mls/hr Q20H IV Last administered on 10/14/18 07:15; Admin Dose 50 MLS/HR; Start 10/12/18 at 14:00 Cinacalcet (Sensipar) 30 mg DAILY PO Last administered on 10/14/18 10:00; Admin Dose 30 MG; Start 10/12/18 at 14:00 Collagenase (Santyl) 1 applic DAILY TOP Last administered on 10/14/18 17:21; Admin Dose 1 APPLIC; Start 10/14/18 at 14:00 ERIN MONTOYA MD Oct 14, 2018 21:15
[2018-10-15 02:29] VITALS: BP 140/81; PULSE 76; RESP 18
[2018-10-15 07:00] VITALS: BP 151/89; PULSE 84; RESP 18
[2018-10-15] MEDS: SOD PHOS MONO/DIBAS 250 MG TAB PO SCH ×2 (09:58→20:42)
[2018-10-15] MEDS: COLLAGENASE 5 GM (UD JAR) TOP SCH (09:58)
[2018-10-15] MEDS: DOCUSATE SODIUM 100 MG CAP PO SCH (09:58)
[2018-10-15] MEDS: CINACALCET 30 MG TAB PO SCH (09:58)
[2018-10-15] MEDS: TACROLIMUS 0.5 MG CAP PO SCH ×2 (09:58→20:42)
[2018-10-15] MEDS: MULTIVIT/CA CARB/B CMPLX/FA TAB PO SCH (09:58)
[2018-10-15] MEDS: FAMOTIDINE 20 MG TAB PO SCH ×2 (09:59→20:41)
[2018-10-15] MEDS: FOLIC ACID 1 MG TAB PO SCH (09:59)
[2018-10-15] MEDS: APIXABAN 5 MG TABLET PO SCH ×2 (09:59→20:41)
[2018-10-15] MEDS: AMIODARONE 200 MG TAB PO SCH ×2 (10:00→20:42)
[2018-10-15] MEDS: DILTIAZEM (CD) 240 MG CAP PO SCH (10:01)
[2018-10-15] MEDS: MAGNESIUM OXIDE 400 MG TAB PO SCH ×2 (10:42→20:41)
[2018-10-15] MEDS: SOD CHLORIDE 0.9% 1,000 ML IV SCH (13:05)
--- NOTE | 2018-10-15 13:34 | CONS ---
Assessment/Plan Assessment/Plan Hospital Course (Demo Recall) # sepsis, muskuloskeletal, derm - h/o sepsis due infected left BKA stump - h/o infected L BKA stump site - h/o further revision of L BKA site and wound vac placement on 10/02/2018. Path showed gangrenous necrosis of skin and subcutaneous tissue, fibrous connective tissue and skeletal muscle tissue with focal necrosis, segment of bone with no evidence of osteomyelitis - h/o exploration and washout, debridement and VAC placement to L infected BKA site on 09/19/2018; The superficial wound culture grew B. fragilis on 09/18/2018; the intra-operative culture grew coag neg staph and B. fragilis on 09/19/18. CoNS was a likely colonizer; Pt took levofloxacin and metronidazole (09/17/2018- 10/04/2018) for these. The intra-operative fungal culture on 09/19/18 grew A. versicolor group, submitted reference lab for sensitivity; Pt took ambisome (10/02/2018-10/06/2018); the path was negative for malignancy. - h/o L BKA on 09/13/2018 - h/o draining wound, necrosis and infection of L TMA site (prior to L BKA). ESR 121 on 09/12/2018. # renal, cardiac - h/o renal transplant at [facility] in 2006, maintained on tacrolimus - h/o immunocompromised status - A fib with RVR, converted to SR - TWIN, multifactorial: Ambisome, tacrolimus, recent sepsis # other conditions - h/o transaminitis - adverse reaction to cefazolin (hives), meropenem (pruritus) recommendations: - monitor the wound closely off antibiotics - we requested that Pt's RN take pictures of the wound at the next wound VAC change again on 10/15/2018 (I asked pt's RN to follow up) - continue local wound care/wound VAC Consultation Date/Type/Reason Admit Date/Time Oct 08, 2018 at 16:11 Initial Consult Date 10/08/18 Requesting Provider: FITO GAY MD, [facility] Date/Time of Note DATE: 10/15/18 TIME: 13:33 24 HR Interval Summary Free Text/Dictation picts reviewed. d/w nursing Exam/Review of Systems Exam Vitals Vital Signs Date Temp Pulse Resp B/P (MAP) Pulse Ox O2 O2 Flow FiO2 Time Delivery Rate 10/15/18 97.8 84 18 151/89 100 Room Air 07:00 (109) Intake and Output 10/14/18 10/14/18 10/15/18 1515:00 23:00 07:00 IntakeIntake Total 340 ml 1060 ml 900 ml OutputOutput Total 760 ml 730 ml BalanceBalance 340 ml 300 ml 170 ml Constitutional: alert, oriented, well developed Psych: no complaints, nl mood/affect Head: normocephalic, atraumatic Eyes: nl conjunctiva, EOMI, nl lids, nl sclera, PERRL ENMT: nl external ears & nose, nl lips & teeth, nl nasal mucosa & septum Neck: supple, non-tender Respiratory: clear to auscultation, normal air movement Cardiovascular: regular rate and rhythm, nl pulses Gastrointestinal: soft, nl liver, spleen, non-tender Skin: other (wound picts reviewed) Results Result Diagram: 10/14/1808 10/14/18 0608 Medications Medication Current Medications Miscellaneous Information (Pending [facility] Order For Wound Care) This patient yi... PRN PRN XX WOUND CARE; Start 10/08/18 at 17:00 Acetaminophen (Tylenol Tab) 650 mg Q6H PRN PO MILD PAIN(1-3)OR ELEVATED TEMP; Start 10/08/18 at 17:00 Amiodarone HCl (Cordarone) 200 mg BID PO Last administered on 10/15/18at 10:00; Admin Dose 200 MG; Start 10/08/18 at 21:00 Apixaban (Eliquis) 2.5 mg BID PO Last administered on 10/15/18at 09:59; Admin Dose 2.5 MG; Start 10/08/18 at 21:00 Diltiazem HCl (Cardizem Cd) 240 mg DAILY PO Last administered on 10/15/18 10:01; Admin Dose 240 MG; Start 10/09/18 at 09:00 Folic Acid (Folic Acid) 1 mg DAILY PO Last administered on 10/15/18 09:59; Admin Dose 1 MG; Start 10/09/18 at 09:00 Famotidine (Pepcid) 20 mg BID PO Last administered on 10/15/18 09:59; Admin Dose 20 MG; Start 10/08/18 at 21:00 Hydromorphone HCl (Dilaudid) 1 mg Q4H PRN IV SEVERE PAIN LEVEL 7-10 Last administered on 10/14/18 17:17; Admin Dose 1 MG; Start 10/08/18 at 17:00 Multivit/Ca Carb/ B Cmplx/FA/Prenat (Flor-Elisa) 1 tab DAILY PO Last administered on 10/15/18 09:58; Admin Dose 1 TAB; Start 10/09/18 at 09:00 Magnesium Hydroxide (Milk Of Mag) 30 ml DAILY PRN PO CONSTIPATION; Start 10/08/18 at 17:00 Docusate Sodium (Colace) 100 mg DAILY PO Last administered on 10/15/18 09:58; Admin Dose 100 MG; Start 10/09/18 at 09:00 Tacrolimus (Prograf) 0.5 mg BID PO Last administered on 10/15/18 09:58; Admin Dose 0.5 MG; Start 10/12/18 at 09:00 Gabapentin (Neurontin) 100 mg HS PO Last administered on 10/14/18 20:32; Admin Dose 100 MG; Start 10/12/18 at 21:00 Sodium Chloride 1,000 ml @ 50 mls/hr Q20H IV Last administered on 10/15/18 13:05; Admin Dose 50 MLS/HR; Start 10/12/18 at 14:00 Cinacalcet (Sensipar) 30 mg DAILY PO Last administered on 10/15/18 09:58; Admin Dose 30 MG; Start 10/12/18 at 14:00 Collagenase (Santyl) 1 applic DAILY TOP Last administered on 10/15/18 09:58; Admin Dose 1 APPLIC; Start 10/14/18 at 14:00 Sodium Phosphate (Kphos Neutral) 250 mg BID PO Last administered on 10/15/18 09:58; Admin Dose 250 MG; Start 10/15/18 at 09:00 Magnesium Oxide (Mag-Ox 400) 400 mg BID PO Last administered on 10/15/18 10:42; Admin Dose 400 MG; Start 10/15/18 at 09:00 JACKIE ARIAS MD Oct 15, 2018 13:34
[2018-10-15 14:00] VITALS: BP 138/64; PULSE 81; RESP 18
--- NOTE | 2018-10-15 14:08 | CONS ---
Assessment/Plan Assessment/Plan Hospital Course (Demo Recall) 1. Kidney transplant status. He underwent a cadaveric kidney transplant in 2006 at [facility]. He is on immunosuppressive therapy. His serum creatinine had risen to as high as 1.82 mg/dL although was less yesterday. His renal function is improving. We are aiming for a tacrolimus trough level of 5. I will order labs for tomorrow morning. 2. Anemia 3. Hypertension 4. Peripheral artery disease status post left below the knee amputation. The wound is healing . He is now on the acute rehab unit for a comprehensive rehabilitation program . 5. Hyperparathyroidism with elevated serum calcium. He is on calcitriol which I will discontinue because of the elevated calcium. He is now on cinacalcet. 6. Hypomagnesemia and hypophosphatemia due to tacrolimus causing losses through the kidney.. His serum phosphorus and serum magnesium are lower today. I will restart oral phosphorus tablets and oral magnesium tablets to start today . Consultation Date/Type/Reason Admit Date/Time Oct 08, 2018 at 16:11 Initial Consult Date 10/08/18 Type of Consult Nephrology Requesting Provider: FITO GAY MD, [facility] Date/Time of Note DATE: 10/15/18 TIME: 14:04 24 HR Interval Summary Free Text/Dictation This patient is being seen in nephrologic follow-up. He is awake and alert. He has no complaints. His left stump wound is being dressed by the nurse. There is some necrotic area and some area that healed. She is applying different topical dressings to each part. Constitutional: no complaints, improved Exam/Review of Systems Exam Vitals Vital Signs Date Temp Pulse Resp B/P (MAP) Pulse Ox O2 O2 Flow FiO2 Time Delivery Rate 10/15/18 97.8 84 18 151/89 100 Room Air 07:00 (109) Intake and Output 10/14/18 10/14/18 10/15/18 1515:00 23:00 07:00 IntakeIntake Total 340 ml 1060 ml 900 ml OutputOutput Total 760 ml 730 ml BalanceBalance 340 ml 300 ml 170 ml Exam His left leg wound is healing. There is one area of necrosis. The wound is being dressed with different topical ointments. The wound VAC has been removed. Constitutional: alert, oriented, frail Respiratory: clear to auscultation, normal air movement Cardiovascular: regular rate and rhythm Gastrointestinal: soft, non-tender Results Result Diagram: 10/14/1860710/14/18607 Medications Medication Current Medications Miscellaneous Information (Pending [facility] Order For Wound Care) This patient yi... PRN PRN XX WOUND CARE; Start 10/08/18 at 17:00 Acetaminophen (Tylenol Tab) 650 mg Q6H PRN PO MILD PAIN(1-3)OR ELEVATED TEMP; Start 10/08/18 at 17:00 Amiodarone HCl (Cordarone) 200 mg BID PO Last administered on 10/15/18 10:00; Admin Dose 200 MG; Start 10/08/18 at 21:00 Apixaban (Eliquis) 2.5 mg BID PO Last administered on 10/15/18 09:59; Admin Dose 2.5 MG; Start 10/08/18 at 21:00 Diltiazem HCl (Cardizem Cd) 240 mg DAILY PO Last administered on 10/15/18 10:01; Admin Dose 240 MG; Start 10/09/18 at 09:00 Folic Acid (Folic Acid) 1 mg DAILY PO Last administered on 10/15/18 09:59; Admin Dose 1 MG; Start 10/09/18 at 09:00 Famotidine (Pepcid) 20 mg BID PO Last administered on 10/15/18 09:59; Admin Dose 20 MG; Start 10/08/18 at 21:00 Hydromorphone HCl (Dilaudid) 1 mg Q4H PRN IV SEVERE PAIN LEVEL 7-10 Last administered on 10/14/18at 17:17; Admin Dose 1 MG; Start 10/08/18 at 17:00 Multivit/Ca Carb/ B Cmplx/FA/Prenat (Flor-Elisa) 1 tab DAILY PO Last administered on 10/15/18 09:58; Admin Dose 1 TAB; Start 10/09/18 at 09:00 Magnesium Hydroxide (Milk Of Mag) 30 ml DAILY PRN PO CONSTIPATION; Start 10/08/18 at 17:00 Docusate Sodium (Colace) 100 mg DAILY PO Last administered on 10/15/18 09:58; Admin Dose 100 MG; Start 10/09/18 at 09:00 Tacrolimus (Prograf) 0.5 mg BID PO Last administered on 10/15/18 09:58; Admin Dose 0.5 MG; Start 10/12/18 at 09:00 Gabapentin (Neurontin) 100 mg HS PO Last administered on 10/14/18 20:32; Admin Dose 100 MG; Start 10/12/18 at 21:00 Cinacalcet (Sensipar) 30 mg DAILY PO Last administered on 10/15/18 09:58; Admin Dose 30 MG; Start 10/12/18 at 14:00 Collagenase (Santyl) 1 applic DAILY TOP Last administered on 10/15/18 09:58; Admin Dose 1 APPLIC; Start 10/14/18 at 14:00 Sodium Phosphate (Kphos Neutral) 250 mg BID PO Last administered on 10/15/18 09:58; Admin Dose 250 MG; Start 10/15/18 at 09:00 Magnesium Oxide (Mag-Ox 400) 400 mg BID PO Last administered on 10/15/18 10:42; Admin Dose 400 MG; Start 10/15/18 at 09:00 ERIN MONTOYA MD Oct 15, 2018 14:08
--- NOTE | 2018-10-15 14:16 | PN ---
Date/Time of Note Date/Time of Note DATE: 10/15/18 TIME: 14:16 Assessment/Plan VTE Prophylaxis Risk score (from Ns)>0 risk: 3 SCD applied (from Ns): No SCD contraindicated: other Pharmacological prophylaxis: apixaban Lines/Catheters IV [facility]ter Type (from [facility]): Peripheral IV Urinary Cath still in place: No Assessment/Plan Hospital Course SUBJECTIVE: No acute distress. OBJECTIVE: Vital signs-see below PHYSICAL EXAM: Constitutional: Adequately built,not in acute distress. HEENT: Head atraumatic and normocephalic. Eyes: Extraocular muscles intact. Anicteric sclerae. Pupils equal bilaterally, reactive to light. NECK: Supple without lymph node. CHEST: Clear and good breath sounds equally. No wheezing. No rhonchi. HEART: S1, S2. Regular rate and rhythm. ABDOMEN: Soft/non tender with no rebound tenderness. Bowel sounds were present. EXTREMITIES: L BKA stump/dressing c/d/i. No cyanosis, clubbing or edema. NEUROLOGIC: Alert and oriented x3. No focal deficit. No sensory deficit. PSYCHOSOCIAL: No signs of depression. INTEGUMENTARY: No open wounds. ASSESSMENT AND PLAN: Severe left peripheral artery disease with infected left TMA stump- stable - s/p Urgent left below-knee amputation on 09/13/2018 with washout. Further revision on 10/02. - on Eliquis - off Antibiotics A. fib -s/p cards review-> Continue on amiodarone until 10/20, 1 month tx. continue on diltiazem -cont ATC S/p Sepsis secondary to lower extremity infection - s/p abx completion Peripheral vascular disease. - Continue statins History of renal transplant. - nephrology on board and appreciate recommendations. - avoiding nephrotoxic agents - continue immunosuppressants Normocytic anemia - stable HLD - on statin Hyperparathyroidism -on appropriate regimen. DVT Prophylaxis: José Miguel Patient was seen in collaboration with Dr. Alejandro Result Diagram: 10/14/18 0608 10/14/18 0608 Exam/Review of Systems Exam Vitals Vital Signs Date Temp Pulse Resp B/P (MAP) Pulse Ox O2 O2 Flow FiO2 Time Delivery Rate 10/15/18 97.8 84 18 151/89 100 Room Air 07:00 (109) Intake and Output 10/14/18 10/14/18 10/15/18 1515:00 23:00 07:00 IntakeIntake Total 340 ml 1060 ml 900 ml OutputOutput Total 760 ml 730 ml BalanceBalance 340 ml 300 ml 170 ml Medications Medication Current Medications Miscellaneous Information (Pending [facility] Order For Wound Care) This patient yi... PRN PRN XX WOUND CARE; Start 10/08/18 at 17:00 Acetaminophen (Tylenol Tab) 650 mg Q6H PRN PO MILD PAIN(1-3)OR ELEVATED TEMP; Start 10/08/18 at 17:00 Amiodarone HCl (Cordarone) 200 mg BID PO Last administered on 10/15/18 10:00; Admin Dose 200 MG; Start 10/08/18 at 21:00 Apixaban (Eliquis) 2.5 mg BID PO Last administered on 10/15/18 09:59; Admin Dose 2.5 MG; Start 10/08/18 at 21:00 Diltiazem HCl (Cardizem Cd) 240 mg DAILY PO Last administered on 10/15/18 10:0 1; Admin Dose 240 MG; Start 10/09/18 at 09:00 Folic Acid (Folic Acid) 1 mg DAILY PO Last administered on 10/15/18 09:59; Admin Dose 1 MG; Start 10/09/18 at 09:00 Famotidine (Pepcid) 20 mg BID PO Last administered on 10/15/18 09:59; Admin Dose 20 MG; Start 10/08/18 at 21:00 Hydromorphone HCl (Dilaudid) 1 mg Q4H PRN IV SEVERE PAIN LEVEL 7-10 Last administered on 10/14/18 17:17; Admin Dose 1 MG; Start 10/08/18 at 17:00 Multivit/Ca Carb/ B Cmplx/FA/Prenat (Flor-Elisa) 1 tab DAILY PO Last administ ered on 10/15/18 09:58; Admin Dose 1 TAB; Start 10/09/18 at 09:00 Magnesium Hydroxide (Milk Of Mag) 30 ml DAILY PRN PO CONSTIPATION; Start 10/08/18 at 17:00 Docusate Sodium (Colace) 100 mg DAILY PO Last administered on 10/15/18 09:58; Admin Dose 100 MG; Start 10/09/18 at 09:00 Tacrolimus (Prograf) 0.5 mg BID PO Last administered on 10/15/18 09:58; Admin Dose 0.5 MG; Start 10/12/18 at 09:00 Gabapentin (Neurontin) 100 mg HS PO Last administered on 10/14/18 20:32; Admin Dose 100 MG; Start 10/12/18 at 21:00 Cinacalcet (Sensipar) 30 mg DAILY PO Last administered on 10/15/18 09:58; Admin Dose 30 MG; Start 10/12/18 at 14:00 Collagenase (Santyl) 1 applic DAILY TOP Last administered on 10/15/18 09:58; Admin Dose 1 APPLIC; Start 10/14/18 at 14:00 Sodium Phosphate (Kphos Neutral) 250 mg BID PO Last administered on 10/15/18 09:58; Admin Dose 250 MG; Start 10/15/18 at 09:00 Magnesium Oxide (Mag-Ox 400) 400 mg BID PO Last administered on 10/15/18 10:42; Admin Dose 400 MG; Start 10/15/18 at 09:00 WILTON ACKERMAN NP Oct 15, 2018 14:16
--- NOTE | 2018-10-15 17:25 | PN ---
DATE: 10/15/2018 SUBJECTIVE: This patient had no events overnight per staff. Continues therapy as noted. He is in g ood spirits this morning. OBJECTIVE: VITAL SIGNS: Temperature 98.2, pulse 81, blood pressure 138/64, O2 saturation 97% on room air. NECK: Supple. No JVD or lymphadenopathy. CARDIAC: S1, S2. No added sounds or murmurs. CHEST: Diminished air entry in both bases. ABDOMEN: Soft, nontender. No guarding or rebound. EXTREMITIES: No cyanosis or clubbing. 1+ edema. NEUROLOGIC: Generalized weakness but no focal deficits. IMPRESSION AND PLAN: 1. Rehabilitation status post below-knee amputation. Continue rehabilitation. 2. Essential hypertension, currently stable. 3. Peripheral artery disease. Continue current wound care. 4. End-stage renal failure, status post transplant with current stable renal function. 5. Atrial fibrillation with rate adequately controlled on amiodarone and diltiazem. Dictated By: FITO GAY MD SV/NTS Conf#: [id number] DID#: [id number] CC: MERNA CALHOUN MD;*EndCC*
[2018-10-15 20:00] VITALS: BP 122/74; PULSE 81; RESP 18
[2018-10-15] MEDS: GABAPENTIN 100 MG CAP PO SCH (20:41)
[2018-10-16 02:35] VITALS: BP 134/78; PULSE 76; RESP 18
[2018-10-16 07:30] VITALS: BP 139/82; PULSE 75; RESP 18
[2018-10-16] MEDS: MULTIVIT/CA CARB/B CMPLX/FA TAB PO SCH (08:08)
[2018-10-16] MEDS: FAMOTIDINE 20 MG TAB PO SCH ×2 (08:08→20:31)
[2018-10-16] MEDS: FOLIC ACID 1 MG TAB PO SCH (08:08)
[2018-10-16] MEDS: DOCUSATE SODIUM 100 MG CAP PO SCH ×2 (08:08→09:00)
[2018-10-16] MEDS: HYDROmorphONE 1 MG/ML SYG IV PRN ×4 (08:08→19:21)
[2018-10-16] MEDS: TACROLIMUS 0.5 MG CAP PO SCH ×2 (08:09→20:31)
[2018-10-16] MEDS: SOD PHOS MONO/DIBAS 250 MG TAB PO SCH ×2 (08:09→20:31)
[2018-10-16] MEDS: APIXABAN 5 MG TABLET PO SCH ×2 (08:09→20:31)
[2018-10-16] MEDS: MAGNESIUM OXIDE 400 MG TAB PO SCH ×2 (08:09→20:31)
[2018-10-16] MEDS: CINACALCET 30 MG TAB PO SCH ×2 (09:17→09:26)
[2018-10-16] MEDS: AMIODARONE 200 MG TAB PO SCH ×2 (09:26→20:32)
--- NOTE | 2018-10-16 11:23 | CONS ---
[facility] HCIS Consult Follow-up Patient Name: Alphonso Lee Unit Number: [id number] Date of : 1960 Patient Status: Admitted Inpatient Attending Doctor: Fiot Landaverde MD,[facility] Edit: CLARE PIRES M.D. on 10/18/18 @ 08:02 Pranay: I discussed the management with [employer] INST[employer]ER Denisha and agree Assessment/Plan Assessment/Plan Hospital Course (Demo Recall) # sepsis, muskuloskeletal, derm - h/o sepsis due infected left BKA stump - h/o infected L BKA stump site - h/o further revision of L BKA site and wound vac placement on 10/02/2018. Path showed gangrenous necrosis of skin and subcutaneous tissue, fibrous connective tissue and skeletal muscle tissue with focal necrosis, segment of bone with no evidence of osteomyelitis - h/o exploration and washout, debridement and VAC placement to L infected BKA site on 09/19/2018; The superficial wound culture grew B. fragilis on 09/18/2018; the intra-operative culture grew coag neg staph and B. fragilis on 09/19/18. CoNS was a likely colonizer; Pt took levofloxacin and metronidazole (09/17/2018- 10/04/2018) for these. The intra-operative fungal culture on 09/19/18 grew A. versicolor group, submitted reference lab for sensitivity; Pt took ambisome (10/02/2018-10/06/2018); the path was negative for malignancy. - h/o L BKA on 09/13/2018 - h/o draining wound, necrosis and infection of L TMA site (prior to L BKA). ESR 121 on 09/12/2018. # renal, cardiac - h/o renal transplant at [facility] in 2006, maintained on tacrolimus - h/o immunocompromised status - A fib with RVR, converted to SR - TWIN, multifactorial: Ambisome, tacrolimus, recent sepsis # other conditions - h/o transaminitis - adverse reaction to cefazolin (hives), meropenem (pruritus) Recommendations: - monitor the wound closely off antibiotics - we requested that Pt's RN take pictures of the wound at the next wound VAC change again on 10/15/2018 (I asked pt's RN to follow up) - continue local wound care/wound VAC - Pt to f/u in office with Dr. Pires in 1 week post discharge. Plan was d/w patient, nsg, and with Dr. Pires. Consultation Date/Type/Reason Admit Date/Time Oct 08, 2018 at 16:11 Initial Consult Date 10/08/18 Type of Consult ID Requesting Provider: FITO LANDAVERDE MD, [facility] Date/Time of Note DATE: 10/16/18 TIME: 11:22 24 HR Interval Summary Free Text/Dictation The patient has d/c planning for 10/22/18 per ns. He has remained afebrile with no acute issues reported by nursing. Patient denied all ROS including pain. Exam/Review of Systems Exam Vitals Vital Signs Date Temp Pulse Resp B/P (MAP) Pulse Ox O2 O2 Flow FiO2 Time Delivery Rate 10/16/18 97.5 75 18 139/82 100 Room Air 07:30 (101) Intake and Output 10/15/18 10/15/18 10/16/18 1515:00 23:00 07:00 IntakeIntake Total 290 ml 1900 ml OutputOutput Total 400 ml 600 ml 550 ml BalanceBalance -110 ml 1300 ml -550 ml Allergies Coded Allergies cefazolin (Verified Allergy, Intermediate, HIVES, 10/04/18) meropenem (Verified Allergy, Intermediate, 10/04/18) pruritus (observed on 09/13/2018) Constitutional: alert, oriented, well developed, other (sitting up in w/c in dining room eating lunch with family member accompanying) Psych: no complaints, nl mood/affect Head: normocephalic, atraumatic Eyes: nl conjunctiva, nl lids, nl sclera ENMT: nl external ears & nose, nl nasal mucosa & septum, mucosa pink and moist (no thrush) Neck: supple, non-tender Respiratory: clear to auscultation, normal air movement; No wheezing Cardiovascular: regular rate and rhythm, nl pulses Gastrointestinal: soft, non-tender, bowel sounds (normoactive) Musculoskeletal: nl extremities to inspection Extremities: normal pulses, other (L BKA site covered with wound vac, leg brace in place. Reviewed nsg notes/pics) 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: nl mental status, nl speech Skin: nl turgor, other (BUE old AVF sites); No rash or lesions Results Result Diagram: 10/16/18 0633 10/16/18 0633 Results 24hrs Laboratory Tests Test 10/16/18 06:33 White Blood Count 4.4 L Red Blood Count 3.87 L Hemoglobin 10.9 L Hematocrit 34.5 L Mean Corpuscular Volume 89.1 Mean Corpuscular Hemoglobin 28.2 L Mean Corpuscular Hemoglobin Concent 31.6 L Red Cell Distribution Width 20.6 H Platelet Count 193 Mean Platelet Volume 10.5 H Immature Granulocytes % 0.900 H Neutrophils % 48.6 Lymphocytes % 21.6 Monocytes % 17.2 H Eosinophils % 11.0 H Basophils % 0.7 Nucleated Red Blood Cells % 0.0 Immature Granulocytes # 0.040 H Neutrophils # 2.1 Lymphocytes # 0.9 Monocytes # 0.8 Eosinophils # 0.5 Basophils # 0.0 Nucleated Red Blood Cells # 0.0 Sodium Level 141 Potassium Level 3.7 Chloride Level 107 Carbon Dioxide Level 26 Anion Gap 8 Blood Urea Nitrogen 17 Creatinine 1.48 H Est Glomerular Filtrat Rate mL/min 49 L Glucose Level 86 Calcium Level 9.5 Phosphorus Level 2.8 Magnesium Level 1.8 Total Bilirubin 0.4 Direct Bilirubin 0.00 Indirect Bilirubin 0.4 Aspartate Amino Transf (AST/SGOT) 50 H Alanine Aminotransferase (ALT/SGPT) 34 Alkaline Phosphatase 158 H Total Protein 7.1 Albumin 3.6 Globulin 3.50 H Albumin/Globulin Ratio 1.02 Medications Medication Current Medications Miscellaneous Information ([facility]) This patient yi... PRN PRN XX WOUND CARE; Start 10/08/18 at 17:00 Acetaminophen (Tylenol Tab) 650 mg Q6H PRN PO MILD PAIN(1-3)OR ELEVATED TEMP; Start 10/08/18 at 17:00 Amiodarone HCl (Cordarone) 200 mg BID PO Last administered on 7/3/19at 09:26; Admin Dose 200 MG; Start 10/08/18 at 21:00 Apixaban (Eliquis) 2.5 mg BID PO Last administered on 10/16/18 08:09; Admin Dose 2.5 MG; Start 10/08/18 at 21:00 Diltiazem HCl (Cardizem Cd) 240 mg DAILY PO Last administered on 10/15/18 10:01; Admin Dose 240 MG; Start 10/09/18 at 09:00 Folic Acid (Folic Acid) 1 mg DAILY PO Last administered on 10/16/18 08:08; Admin Dose 1 MG; Start 10/09/18 at 09:00 Famotidine (Pepcid) 20 mg BID PO Last administered on 10/16/18 08:08; Admin Dose 20 MG; Start 10/08/18 at 21:00 Hydromorphone HCl (Dilaudid) 1 mg Q4H PRN IV SEVERE PAIN LEVEL 7-10 Last administered on 10/16/18 08:08; Admin Dose 1 MG; Start 10/08/18 at 17:00 Multivit/Ca Carb/ B Cmplx/FA/Prenat (Flor-Elisa) 1 tab DAILY PO Last a dministered on 10/16/18 08:08; Admin Dose 1 TAB; Start 10/09/18 at 09:00 Magnesium Hydroxide (Milk Of Mag) 30 ml DAILY PRN PO CONSTIPATION; Start 10/08/18 at 17:00 Docusate Sodium (Colace) 100 mg DAILY PO Last administered on 10/15/18 09:58; Admin Dose 100 MG; Start 10/09/18 at 09:00 Tacrolimus (Prograf) 0.5 mg BID PO Last administered on 10/16/18 08:09; Admin Dose 0.5 MG; Start 10/12/18 at 09:00 Gabapentin (Neurontin) 100 mg HS PO Last administered on 10/15/18 20:41; Admin Dose 100 MG; Start 10/12/18 at 21:00 Cinacalcet (Sensipar) 30 mg DAILY PO Last administered on 10/16/18 09:26; Admin Dose 30 MG; Start 10/12/18 at 14:00 Collagenase (Santyl) 1 applic DAILY TOP Last administered on 10/15/18 09:58; Admin Dose 1 APPLIC; Start 10/14/18 at 14:00 Sodium Phosphate (Kphos Neutral) 250 mg BID PO Last administered on 10/16/18 08:09; Admin Dose 250 MG; Start 10/15/18 at 09:00 Magnesium Oxide (Mag-Ox 400) 400 mg BID PO Last administered on 10/16/18at 08:09; Admin Dose 400 MG; Start 10/15/18 at 09:00 WM JOSUE NP Oct 16, 2018 11:23
[2018-10-16] MEDS: DILTIAZEM (CD) 240 MG CAP PO SCH (11:27)
--- NOTE | 2018-10-16 13:21 | PN ---
Date/Time of Note Date/Time of Note DATE: 10/16/18 TIME: 13:20 Assessment/Plan VTE Prophylaxis Risk score (from Ns)>0 risk: 3 SCD applied (from Ns): No SCD contraindicated: other Pharmacological prophylaxis: apixaban Lines/Catheters IV Catheter Type (from [facility]): Peripheral IV Urinary Cath still in place: No Assessment/Plan Hospital Course SUBJECTIVE: No acute distress. OBJECTIVE: Vital signs-see below PHYSICAL EXAM: Constitutional: Adequately built,not in acute distress. HEENT: Head atraumatic and normocephalic. Eyes: Extraocular muscles intact. Anicteric sclerae. Pupils equal bilaterally, reactive to light. NECK: Supple without lymph node. CHEST: Clear and good breath sounds equally. No wheezing. No rhonchi. HEART: S1, S2. Regular rate and rhythm. ABDOMEN: Soft/non tender with no rebound tenderness. Bowel sounds were present. EXTREMITIES: L BKA stump/dressing c/d/i. No cyanosis, clubbing or edema. NEUROLOGIC: Alert and oriented x3. No focal deficit. No sensory deficit. PSYCHOSOCIAL: No signs of depression. INTEGUMENTARY: No open wounds. ASSESSMENT AND PLAN: Severe left peripheral artery disease with infected left TMA stump- stable - s/p Urgent left below-knee amputation on 09/13/2018 with washout. Further revision on 10/02. - on Eliquis - off Antibiotics A. fib -s/p cards review-> Continue on amiodarone until 10/20, 1 month tx. continue on diltiazem -cont ATC S/p Sepsis secondary to lower extremity infection - s/p abx completion Peripheral vascular disease. - Continue statins History of renal transplant. - nephrology on board and appreciate recommendations. - avoiding nephrotoxic agents - continue immunosuppressants Normocytic anemia - stable HLD - on statin Hyperparathyroidism -on appropriate regimen. DVT Prophylaxis: Elizcortes Patient was seen in collaboration with Dr. Alejandro Result Diagram: 10/16/18 0633 10/16/18 0633 Results 24hrs Laboratory Tests Test 10/16/18 06:33 White Blood Count 4.4 L Red Blood Count 3.87 L Hemoglobin 10.9 L Hematocrit 34.5 L Mean Corpuscular Volume 89.1 Mean Corpuscular Hemoglobin 28.2 L Mean Corpuscular Hemoglobin Concent 31.6 L Red Cell Distribution Width 20.6 H Platelet Count 193 Mean Platelet Volume 10.5 H Immature Granulocytes % 0.900 H Neutrophils % 48.6 Lymphocytes % 21.6 Monocytes % 17.2 H Eosinophils % 11.0 H Basophils % 0.7 Nucleated Red Blood Cells % 0.0 Immature Granulocytes # 0.040 H Neutrophils # 2.1 Lymphocytes # 0.9 Monocytes # 0.8 Eosinophils # 0.5 Basophils # 0.0 Nucleated Red Blood Cells # 0.0 Sodium Level 141 Potassium Level 3.7 Chloride Level 107 Carbon Dioxide Level 26 Anion Gap 8 Blood Urea Nitrogen 17 Creatinine 1.48 H Est Glomerular Filtrat Rate mL/min 49 L Glucose Level 86 Calcium Level 9.5 Phosphorus Level 2.8 Magnesium Level 1.8 Total Bilirubin 0.4 Direct Bilirubin 0.00 Indirect Bilirubin 0.4 Aspartate Amino Transf (AST/SGOT) 50 H Alanine Aminotransferase (ALT/SGPT) 34 Alkaline Phosphatase 158 H Total Protein 7.1 Albumin 3.6 Globulin 3.50 H Albumin/Globulin Ratio 1.02 Exam/Review of Systems Exam Vitals Vital Signs Date Temp Pulse Resp B/P (MAP) Pulse Ox O2 O2 Flow FiO2 Time Delivery Rate 10/16/18 97.5 75 18 139/82 100 Room Air 07:30 (101) Intake and Output 10/15/18 10/15/18 10/16/18 1515:00 23:00 07:00 IntakeIntake Total 290 ml 1900 ml OutputOutput Total 400 ml 600 ml 550 ml BalanceBalance -110 ml 1300 ml -550 ml Results Results 24hrs Laboratory Tests Test 10/16/18 06:33 White Blood Count 4.4 L Red Blood Count 3.87 L Hemoglobin 10.9 L Hematocrit 34.5 L Mean Corpuscular Volume 89.1 Mean Corpuscular Hemoglobin 28.2 L Mean Corpuscular Hemoglobin Concent 31.6 L Red Cell Distribution Width 20.6 H Platelet Count 193 Mean Platelet Volume 10.5 H Immature Granulocytes % 0.900 H Neutrophils % 48.6 Lymphocytes % 21.6 Monocytes % 17.2 H Eosinophils % 11.0 H Basophils % 0.7 Nucleated Red Blood Cells % 0.0 Immature Granulocytes # 0.040 H Neutrophils # 2.1 Lymphocytes # 0.9 Monocytes # 0.8 Eosinophils # 0.5 Basophils # 0.0 Nucleated Red Blood Cells # 0.0 Sodium Level 141 Potassium Level 3.7 Chloride Level 107 Carbon Dioxide Level 26 Anion Gap 8 Blood Urea Nitrogen 17 Creatinine 1.48 H Est Glomerular Filtrat Rate mL/min 49 L Glucose Level 86 Calcium Level 9.5 Phosphorus Level 2.8 Magnesium Level 1.8 Total Bilirubin 0.4 Direct Bilirubin 0.00 Indirect Bilirubin 0.4 Aspartate Amino Transf (AST/SGOT) 50 H Alanine Aminotransferase (ALT/SGPT) 34 Alkaline Phosphatase 158 H Total Protein 7.1 Albumin 3.6 Globulin 3.50 H Albumin/Globulin Ratio 1.02 Medications Medication Current Medications Miscellaneous Information (Pending [facility] Order For Wound Care) This patient yi... PRN PRN XX WOUND CARE; Start 10/08/18 at 17:00 Acetaminophen (Tylenol Tab) 650 mg Q6H PRN PO MILD PAIN(1-3)OR ELEVATED TEMP; Start 10/08/18 at 17:00 Amiodarone HCl (Cordarone) 200 mg BID PO Last administered on 10/16/18 09:26; Admin Dose 200 MG; Start 10/08/18 at 21:00 Apixaban (Eliquis) 2.5 mg BID PO Last administered on 10/16/18 08:09; Admin Dose 2.5 MG; Start 10/08/18 at 21:00 Diltiazem HCl (Cardizem Cd) 240 mg DAILY PO Last administered on 10/16/18 11:27; Admin Dose 240 MG; Start 10/09/18 at 09:00 Folic Acid (Folic Acid) 1 mg DAILY PO Last administered on 10/16/18 08:08; Admin Dose 1 MG; Start 10/09/18 at 09:00 Famotidine (Pepcid) 20 mg BID PO Last administered on 10/16/18 08:08; Admin Dose 20 MG; Start 10/08/18 at 21:00 Hydromorphone HCl (Dilaudid) 1 mg Q4H PRN IV SEVERE PAIN LEVEL 7-10 Last administered on 10/16/18 12:19; Admin Dose 1 MG; Start 10/08/18 at 17:00 Multivit/Ca Carb/ B Cmplx/FA/Prenat (Flor-Elisa) 1 tab DAILY PO Last adm inistered on 10/16/18 08:08; Admin Dose 1 TAB; Start 10/09/18 at 09:00 Magnesium Hydroxide (Milk Of Mag) 30 ml DAILY PRN PO CONSTIPATION; Start 10/08/18 at 17:00 Docusate Sodium (Colace) 100 mg DAILY PO Last administered on 10/15/18 09:58; Admin Dose 100 MG; Start 10/09/18 at 09:00 Tacrolimus (Prograf) 0.5 mg BID PO Last administered on 10/16/18 08:09; Admin Dose 0.5 MG; Start 10/12/18 at 09:00 Gabapentin (Neurontin) 100 mg HS PO Last administered on 10/15/18 20:41; Admin Dose 100 MG; Start 10/12/18 at 21:00 Cinacalcet (Sensipar) 30 mg DAILY PO Last administered on 10/16/18 09:26; Admin Dose 30 MG; Start 10/12/18 at 14:00 Collagenase (Santyl) 1 applic DAILY TOP Last administered on 10/15/18 09:58; Admin Dose 1 APPLIC; Start 10/14/18 at 14:00 Sodium Phosphate (Kphos Neutral) 250 mg BID PO Last administered on 10/16/18 08:09; Admin Dose 250 MG; Start 10/15/18 at 09:00 Magnesium Oxide (Mag-Ox 400) 400 mg BID PO Last administered on 10/16/18 08:09; Admin Dose 400 MG; Start 10/15/18 at 09:00 WILTON ACKERMAN NP Oct 16, 2018 13:21
--- NOTE | 2018-10-16 13:39 | CONS ---
Assessment/Plan Assessment/Plan Hospital Course (Demo Recall) 1. Kidney transplant status. He underwent a cadaveric kidney transplant in 2006 at [facility]. He is on immunosuppressive therapy. His serum creatinine had risen to as high as 1.82 mg/dL although is less today. His renal function is improving. We are aiming for a tacrolimus trough level of 5. I will continue current medication. 2. Anemia 3. Hypertension 4. Peripheral artery disease status post left below the knee amputation. The wound is healing . He is now on the acute rehab unit for a comprehensive rehabilitation program . 5. Hyperparathyroidism with elevated serum calcium. He is on calcitriol which I will discontinue because of the elevated calcium. He is now on cinacalcet. 6. Hypomagnesemia and hypophosphatemia due to tacrolimus causing losses through the kidney. I will restart oral phosphorus tablets and oral magnesium tablets Consultation Date/Type/Reason Admit Date/Time Oct 08, 2018 at 16:11 Initial Consult Date 10/08/18 Type of Consult Nephrology Requesting Provider: FITO GYA MD, [facility] Date/Time of Note DATE: 10/16/18 TIME: 13:35 24 HR Interval Summary Free Text/Dictation This patient is being seen in nephrologic follow-up. He is awake and alert. He has no new complaints. Constitutional: no complaints, improved Exam/Review of Systems Exam Vitals Vital Signs Date Temp Pulse Resp B/P (MAP) Pulse Ox O2 O2 Flow FiO2 Time Delivery Rate 10/16/18 97.5 75 18 139/82 100 Room Air 07:30 (101) Intake and Output 10/15/18 10/15/18 10/16/18 1515:00 23:00 07:00 IntakeIntake Total 290 ml 1900 ml OutputOutput Total 400 ml 600 ml 550 ml BalanceBalance -110 ml 1300 ml -550 ml Exam He is status post left below the knee amputation. Constitutional: alert, oriented, frail Neck: supple, non-tender Respiratory: clear to auscultation, normal air movement Cardiovascular: regular rate and rhythm Gastrointestinal: soft, non-tender Results Result Diagram: 10/16/18 0633 10/16/18 0633 Results 24hrs Laboratory Tests Test 10/16/18 06:33 White Blood Count 4.4 L Red Blood Count 3.87 L Hemoglobin 10.9 L Hematocrit 34.5 L Mean Corpuscular Volume 89.1 Mean Corpuscular Hemoglobin 28.2 L Mean Corpuscular Hemoglobin Concent 31.6 L Red Cell Distribution Width 20.6 H Platelet Count 193 Mean Platelet Volume 10.5 H Immature Granulocytes % 0.900 H Neutrophils % 48.6 Lymphocytes % 21.6 Monocytes % 17.2 H Eosinophils % 11.0 H Basophils % 0.7 Nucleated Red Blood Cells % 0.0 Immature Granulocytes # 0.040 H Neutrophils # 2.1 Lymphocytes # 0.9 Monocytes # 0.8 Eosinophils # 0.5 Basophils # 0.0 Nucleated Red Blood Cells # 0.0 Sodium Level 141 Potassium Level 3.7 Chloride Level 107 Carbon Dioxide Level 26 Anion Gap 8 Blood Urea Nitrogen 17 Creatinine 1.48 H Est Glomerular Filtrat Rate mL/min 49 L Glucose Level 86 Calcium Level 9.5 Phosphorus Level 2.8 Magnesium Level 1.8 Total Bilirubin 0.4 Direct Bilirubin 0.00 Indirect Bilirubin 0.4 Aspartate Amino Transf (AST/SGOT) 50 H Alanine Aminotransferase (ALT/SGPT) 34 Alkaline Phosphatase 158 H Total Protein 7.1 Albumin 3.6 Globulin 3.50 H Albumin/Globulin Ratio 1.02 Medications Medication Current Medications Miscellaneous Information (Pending [facility] Order For Wound Care) This patient yi... PRN PRN XX WOUND CARE; Start 10/08/18 at 17:00 Acetaminophen (Tylenol Tab) 650 mg Q6H PRN PO MILD PAIN(1-3)OR ELEVATED TEMP; Start 10/08/18 at 17:00 Amiodarone HCl (Cordarone) 200 mg BID PO Last administered on 10/16/18at 09:26; Admin Dose 200 MG; Start 10/08/18 at 21:00 Apixaban (Eliquis) 2.5 mg BID PO Last administered on 10/16/18 08:09; Admin Dose 2.5 MG; Start 10/08/18 at 21:00 Diltiazem HCl (Cardizem Cd) 240 mg DAILY PO Last administered on 10/16/18at 11:27; Admin Dose 240 MG; Start 10/09/18 at 09:00 Folic Acid (Folic Acid) 1 mg DAILY PO Last administered on 10/16/18at 08:08; Admin Dose 1 MG; Start 10/09/18 at 09:00 Famotidine (Pepcid) 20 mg BID PO Last administered on 10/16/18 08:08; Admin Dose 20 MG; Start 10/08/18 at 21:00 Hydromorphone HCl (Dilaudid) 1 mg Q4H PRN IV SEVERE PAIN LEVEL 7-10 Last administered on 10/16/18 12:19; Admin Dose 1 MG; Start 10/08/18 at 17:00 Multivit/Ca Carb/ B Cmplx/FA/Prenat (Flor-Elisa) 1 tab DAILY PO Last administered on 10/16/18 08:08; Admin Dose 1 TAB; Start 10/09/18 at 09:00 Magnesium Hydroxide (Milk Of Mag) 30 ml DAILY PRN PO CONSTIPATION; Start 10/08/18 at 17:00 Docusate Sodium (Colace) 100 mg DAILY PO Last administered on 10/15/18 09:58; Admin Dose 100 MG; Start 10/09/18 at 09:00 Tacrolimus (Prograf) 0.5 mg BID PO Last administered on 10/16/18 08:09; Admin Dose 0.5 MG; Start 10/12/18 at 09:00 Gabapentin (Neurontin) 100 mg HS PO Last administered on 10/15/18 20:41; Admin Dose 100 MG; Start 10/12/18 at 21:00 Cinacalcet (Sensipar) 30 mg DAILY PO Last administered on 10/16/18 09:26; Admin Dose 30 MG; Start 10/12/18 at 14:00 Collagenase (Santyl) 1 applic DAILY TOP Last administered on 10/15/18 09:58; Admin Dose 1 APPLIC; Start 10/14/18 at 14:00 Sodium Phosphate (Kphos Neutral) 250 mg BID PO Last administered on 10/16/18 08:09; Admin Dose 250 MG; Start 10/15/18 at 09:00 Magnesium Oxide (Mag-Ox 400) 400 mg BID PO Last administered on 10/16/18 08:09; Admin Dose 400 MG; Start 10/15/18 at 09:00 ERIN MONTOYA MD Oct 16, 2018 13:39
[2018-10-16 14:00] VITALS: BP 117/69; PULSE 85; RESP 18
[2018-10-16 19:09] VITALS: BP 123/73; PULSE 77; RESP 18
--- NOTE | 2018-10-16 19:35 | PN ---
DATE: 10/16/2018 SUBJECTIVE: The patient is stable overnight, continues wound care and dressing to the left leg resid ual stump. No p.r.n. medications required. OBJECTIVE: VITAL SIGNS: Temperature 98, pulse 85, blood pressure 117/69, O2 saturation 96% on room air. NECK: Supple. No JVD or lymphadenopathy. CARDIAC: S1, S2. No added sounds or murmurs. CHEST: Diminished air entry both bases. ABDOMEN: Soft, nontender. No guarding or rebound. EXTREMITIES: No cyanosis, clubbing or edema. NEUROLOGIC: Grossly intact. LABORATORY DATA: White count 4.4, hemoglobin 10.9, platelets 193. Chemistry: BUN 49, creatinine 1. 48. IMPRESSION: 1. Rehabilitation, status post below knee amputation. We will continue rehabilitation program. 2. Essential hypertension, currently stable. 3. Peripheral arterial disease. Continue his wound care. 4. End-stage renal failure, status post renal transplant. Continue renal recommendations. 5. Atrial fibrillation, currently rate controlled. Dictated By: FITO GAY MD SV/WADE Conf#: [id number] DID#: [id number] CC: MERNA CALHOUN MD; JACKIE ARIAS MD;*EndCC*
[2018-10-16] MEDS: COLLAGENASE 5 GM (UD JAR) TOP SCH (20:31)
[2018-10-16] MEDS: GABAPENTIN 100 MG CAP PO SCH (20:32)
[2018-10-16] MEDS: HYDROCODONE/APAP (5/325) TAB PO PRN (20:52)
[2018-10-16] MEDS ORDERED: HYDROCODONE/APAP (5/325) TAB PO PRN (21:00)
[2018-10-17 02:00] VITALS: BP 118/78; PULSE 82; RESP 18
[2018-10-17 07:00] VITALS: BP 115/70; PULSE 76; RESP 18
[2018-10-17] MEDS: HYDROCODONE/APAP (5/325) TAB PO PRN (09:02)
[2018-10-17] MEDS: SOD PHOS MONO/DIBAS 250 MG TAB PO SCH ×2 (09:05→20:22)
[2018-10-17] MEDS: FOLIC ACID 1 MG TAB PO SCH (09:05)
[2018-10-17] MEDS: APIXABAN 5 MG TABLET PO SCH ×2 (09:05→20:22)
[2018-10-17] MEDS: DOCUSATE SODIUM 100 MG CAP PO SCH (09:05)
[2018-10-17] MEDS: FAMOTIDINE 20 MG TAB PO SCH ×2 (09:06→20:22)
[2018-10-17] MEDS: TACROLIMUS 0.5 MG CAP PO SCH ×2 (09:06→20:22)
[2018-10-17] MEDS: MAGNESIUM OXIDE 400 MG TAB PO SCH ×3 (09:06→20:22)
[2018-10-17] MEDS: MULTIVIT/CA CARB/B CMPLX/FA TAB PO SCH (09:06)
[2018-10-17] MEDS: DILTIAZEM (CD) 240 MG CAP PO SCH (09:07)
[2018-10-17] MEDS: AMIODARONE 200 MG TAB PO SCH ×2 (09:08→20:22)
[2018-10-17] MEDS: COLLAGENASE 5 GM (UD JAR) TOP SCH (09:12)
--- NOTE | 2018-10-17 12:22 | CONS ---
Assessment/Plan Assessment/Plan Hospital Course (Demo Recall) 1. Kidney transplant status. He underwent a cadaveric kidney transplant in 2006 at [facility]. He is on immunosuppressive therapy. His serum creatinine had risen to as high as 1.82 mg/dL although was less yesterday. His renal function is improving. We are aiming for a tacrolimus trough level of 5. I will continue current medication. 2. Anemia 3. Hypertension 4. Peripheral artery disease status post left below the knee amputation. The wound is healing . He is now on the acute rehab unit for a comprehensive rehabilitation program . 5. Hyperparathyroidism with elevated serum calcium. He is on calcitriol which I will discontinue because of the elevated calcium. He is now on cinacalcet. 6. Hypomagnesemia and hypophosphatemia due to tacrolimus causing losses through the kidney. I will restart oral phosphorus tablets and oral magnesium tablets Consultation Date/Type/Reason Admit Date/Time Oct 08, 2018 at 16:11 Initial Consult Date 10/08/18 Type of Consult Nephrology Requesting Provider: FITO GAY MD, [facility] Date/Time of Note DATE: 10/17/18 TIME: 12:19 24 HR Interval Summary Free Text/Dictation Patient is being seen in nephrologic follow-up. He is doing physical therapy and is ambulating with a walker. He has no new complaints. Constitutional: no complaints, improved Exam/Review of Systems Exam Vitals Vital Signs Date Temp Pulse Resp B/P (MAP) Pulse Ox O2 O2 Flow FiO2 Time Delivery Rate 10/17/18 98.2 76 18 115/70 100 Room Air 07:00 (85) Intake and Output 10/16/18 10/16/18 10/17/18 1515:00 23:00 07:00 IntakeIntake Total 1190 ml 800 ml OutputOutput Total 520 ml 400 ml BalanceBalance 670 ml 400 ml Exam He is status post a left below the knee amputation. Constitutional: alert, oriented, frail Respiratory: clear to auscultation Cardiovascular: regular rate and rhythm Gastrointestinal: soft, non-tender Results Result Diagram: 10/16/18 0633 10/16/18 0633 Medications Medication Current Medications Miscellaneous Information (Pending [facility] Order For Wound Care) This patient yi... PRN PRN XX WOUND CARE; Start 10/08/18 at 17:00 Acetaminophen (Tylenol Tab) 650 mg Q6H PRN PO MILD PAIN(1-3)OR ELEVATED TEMP; Start 10/08/18 at 17:00 Amiodarone HCl (Cordarone) 200 mg BID PO Last administered on 10/17/18 09:08; Admin Dose 200 MG; Start 10/08/18 at 21:00 Apixaban (Eliquis) 2.5 mg BID PO Last administered on 10/17/18 09:05; Admin Dose 2.5 MG; Start 10/08/18 at 21:00 Diltiazem HCl (Cardizem Cd) 240 mg DAILY PO Last administered on 10/17/18 09:07; Admin Dose 240 MG; Start 10/09/18 at 09:00 Folic Acid (Folic Acid) 1 mg DAILY PO Last administered on 10/17/18 09:05; Admin Dose 1 MG; Start 10/09/18 at 09:00 Famotidine (Pepcid) 20 mg BID PO Last administered on 10/17/18 09:06; Admin Dose 20 MG; Start 10/08/18 at 21:00 Hydromorphone HCl (Dilaudid) 1 mg Q4H PRN IV SEVERE PAIN LEVEL 7-10 Last administered on 10/16/18 16:56; Admin Dose 1 MG; Start 10/08/18 at 17:00 Multivit/Ca Carb/ B Cmplx/FA/Prenat (Flor-Elisa) 1 tab DAILY PO Last administered on 10/17/18 09:06; Admin Dose 1 TAB; Start 10/09/18 at 09:00 Magnesium Hydroxide (Milk Of Mag) 30 ml DAILY PRN PO CONSTIPATION; Start 10/08/18 at 17:00 Docusate Sodium (Colace) 100 mg DAILY PO Last administered on 10/17/18 09:05; Admin Dose 100 MG; Start 10/09/18 at 09:00 Tacrolimus (Prograf) 0.5 mg BID PO Last administered on 10/17/18 09:06; Admin Dose 0.5 MG; Start 10/12/18 at 09:00 Gabapentin (Neurontin) 100 mg HS PO Last administered on 10/16/18 20:32; Admin Dose 100 MG; Start 10/12/18 at 21:00 Cinacalcet (Sensipar) 30 mg DAILY PO Last administered on 10/16/18 09:26; Admin Dose 30 MG; Start 10/12/18 at 14:00 Collagenase (Santyl) 1 applic DAILY TOP Last administered on 10/17/18 09:12; Admin Dose 1 APPLIC; Start 10/14/18 at 14:00 Sodium Phosphate (Kphos Neutral) 250 mg BID PO Last administered on 10/17/18 09:05; Admin Dose 250 MG; Start 10/15/18 at 09:00 Magnesium Oxide (Mag-Ox 400) 400 mg TID PO Last administered on 10/17/18 09:06; Admin Dose 400 MG; Start 10/16/18 at 21:00 Acetaminophen/ Hydrocodone Bitart ([place] (5/325)) 1 tab Q4H PRN PO MODERATE PAIN LEVEL 1-5; Start 10/16/18 at 21:00 Acetaminophen/ Hydrocodone Bitart ([place] (5/325)) 2 tab Q4H PRN PO MODERATE PAIN LEVEL >5 Last administered on 10/17/18 09:02; Admin Dose 2 TAB; Start 10/16/18 at 21:00 ERIN MONTOYA MD Oct 17, 2018 12:22
[2018-10-17 14:00] VITALS: BP 127/67; PULSE 81; RESP 18
--- NOTE | 2018-10-17 14:13 | PN ---
DATE: 10/17/2018 SUBJECTIVE: Patient had pain in left stump 8/10 overnight and required pain control, seen by on-call hospitalist. Dressings changed on left below knee amputation. The patient refuses sequential compr ession devices. PHYSICAL EXAMINATION: VITAL SIGNS: Temperature 98.2, pulse 76, blood pressure 115/70 on room air. No JVD or lymphadenopat hy. CARDIAC: S1, S2, no added sounds or murmurs. CHEST: Diminished air entry at the bases. ABDOMEN: Soft, nontender. No guarding or rebound. EXTREMITIES: No cyanosis, clubbing, edema. NEUROLOGIC: Generalized weakness, but no focal deficits. ASSESSMENT: 1. Rehabilitation. Status post-below knee amputation. Continues rehabilitation program, gait stand by assist 70 feet with walkers, activities of daily living minimal assist lower body, activities of d aily living modified independent upper body. 2. Essential hypertension, currently stable. 3. Peripheral artery disease. Continue his wound care. 4. History of renal failure, status post transplant in 2006. Currently on immunosuppressive therapy . Creatinine continues to be monitored and tacrolimus dosing adjusted by nephrology. Dictated By: FITO GAY MD SV/NTS Conf#: [id number] DID#: [id number] CC: MERNA CALHOUN MD;*EndCC*
[2018-10-17 20:00] VITALS: BP 121/75; PULSE 76; RESP 18
[2018-10-17] MEDS: GABAPENTIN 100 MG CAP PO SCH (20:22)
[2018-10-18 01:53] VITALS: BP 116/72; PULSE 77; RESP 17
[2018-10-18 07:00] VITALS: BP 150/84; PULSE 82; RESP 18
--- NOTE | 2018-10-18 07:59 | PN ---
Date/Time of Note Date/Time of Note DATE: 10/18/18 TIME: 07:57 Subjective AWAKE ALERT , MINIMAL PAIN Objective Vital Signs Date Temp Pulse Resp B/P (MAP) Pulse Ox O2 O2 Flow FiO2 Time Delivery Rate 10/18/18 98.4 77 17 116/72 98 Room Air 01:53 (87) Intake and Output 10/17/18 10/17/18 10/18/18 1515:00 23:00 07:00 IntakeIntake Total 2080 ml 120 ml OutputOutput Total 250 ml 1300 ml 1100 ml BalanceBalance -250 ml 780 ml -980 ml Exam LUNGS CTA COR RRR GOOD MOTOR L STUMP DRESSING DRY CLOF BED MOB, XT AND GAIT SV Results/Medications Result Diagram: 10/18/18 0550 10/18/18 0550 Results 24 hrs Laboratory Tests Test 10/18/18 05:50 White Blood Count 5.0 Red Blood Count 3.50 L Hemoglobin 10.0 L Hematocrit 31.6 L Mean Corpuscular Volume 90.3 Mean Corpuscular Hemoglobin 28.6 L Mean Corpuscular Hemoglobin Concent 31.6 L Red Cell Distribution Width 19.9 H Platelet Count 200 Mean Platelet Volume 9.7 Immature Granulocytes % 0.400 Neutrophils % 57.7 Lymphocytes % 16.9 Monocytes % 13.9 H Eosinophils % 10.5 H Basophils % 0.6 Nucleated Red Blood Cells % 0.0 Immature Granulocytes # 0.020 Neutrophils # 2.9 Lymphocytes # 0.9 Monocytes # 0.7 Eosinophils # 0.5 Basophils # 0.0 Nucleated Red Blood Cells # 0.0 Sodium Level 141 Potassium Level 3.9 Chloride Level 106 Carbon Dioxide Level 28 Anion Gap 7 Blood Urea Nitrogen 19 Creatinine 1.57 H Est Glomerular Filtrat Rate mL/min 45 L Glucose Level 88 Calcium Level 9.9 Phosphorus Level 3.0 Magnesium Level 2.2 Total Bilirubin 0.3 Direct Bilirubin 0.00 Indirect Bilirubin 0.3 Aspartate Amino Transf (AST/SGOT) 48 H Alanine Aminotransferase (ALT/SGPT) 36 Alkaline Phosphatase 145 H Total Protein 7.1 Albumin 3.6 Globulin 3.50 H Albumin/Globulin Ratio 1.02 Medications Current Medications Miscellaneous Information (Pending [facility] Order For Wound Care) This patient yi... PRN PRN XX WOUND CARE; Start 10/08/18 at 17:00 Acetaminophen (Tylenol Tab) 650 mg Q6H PRN PO MILD PAIN(1-3)OR ELEVATED TEMP; Start 10/08/18 at 17:00 Amiodarone HCl (Cordarone) 200 mg BID PO Last administered on 10/17/18 20:22; Admin Dose 200 MG; Start 10/08/18 at 21:00 Apixaban (Eliquis) 2.5 mg BID PO Last administered on 10/17/18 20:22; Admin Dose 2.5 MG; Start 10/08/18 at 21:00 Diltiazem HCl (Cardizem Cd) 240 mg DAILY PO Last administered on 10/17/18 09:07 ; Admin Dose 240 MG; Start 10/09/18 at 09:00 Folic Acid (Folic Acid) 1 mg DAILY PO Last administered on 10/17/18 09:05; Admin Dose 1 MG; Start 10/09/18 at 09:00 Famotidine (Pepcid) 20 mg BID PO Last administered on 10/17/18 20:22; Admin Dose 20 MG; Start 10/08/18 at 21:00 Hydromorphone HCl (Dilaudid) 1 mg Q4H PRN IV SEVERE PAIN LEVEL 7-10 Last administered on 10/16/18 16:56; Admin Dose 1 MG; Start 10/08/18 at 17:00 Multivit/Ca Carb/ B Cmplx/FA/Prenat (Flor-Elisa) 1 tab DAILY PO Last administe red on 10/17/18 09:06; Admin Dose 1 TAB; Start 10/09/18 at 09:00 Magnesium Hydroxide (Milk Of Mag) 30 ml DAILY PRN PO CONSTIPATION; Start 10/08/18 at 17:00 Docusate Sodium (Colace) 100 mg DAILY PO Last administered on 10/17/18 09:05; Admin Dose 100 MG; Start 10/09/18 at 09:00 Tacrolimus (Prograf) 0.5 mg BID PO Last administered on 10/17/18 20:22; Admin Dose 0.5 MG; Start 10/12/18 at 09:00 Gabapentin (Neurontin) 100 mg HS PO Last administered on 10/17/18 20:22; Admin Dose 100 MG; Start 10/12/18 at 21:00 Cinacalcet (Sensipar) 30 mg DAILY PO Last administered on 10/16/18 09:26; Admin Dose 30 MG; Start 10/12/18 at 14:00 Collagenase (Santyl) 1 applic DAILY TOP Last administered on 10/17/18 09:12; Admin Dose 1 APPLIC; Start 10/14/18 at 14:00 Sodium Phosphate (Kphos Neutral) 250 mg BID PO Last administered on 10/17/18 20:22; Admin Dose 250 MG; Start 10/15/18 at 09:00 Magnesium Oxide (Mag-Ox 400) 400 mg TID PO Last administered on 10/17/18 20:22; Admin Dose 400 MG; Start 10/16/18 at 21:00 Acetaminophen/ Hydrocodone Bitart ([place] (5/325)) 1 tab Q4H PRN PO MODERATE PAIN LEVEL 1-5; Start 10/16/18 at 21:00 Acetaminophen/ Hydrocodone Bitart ([place] (5/325)) 2 tab Q4H PRN PO MODERATE PAIN LEVEL >5 Last administered on 10/17/18 09:02; Admin Dose 2 TAB; Start 10/16/18 at 21:00 Assessment/Plan Additional Assessment/Plan 1. Rehabilitation. Status post l-below knee amputation.[employer] CONTINUE THERAPEUTIC INTERVENTIONS 2. Essential hypertension, currently stable. 3. Peripheral artery disease. Continue his wound care. 4. History of renal failure, status post transplant in 2006. Currently on immunosuppressive therapy. Creatinine continues to be monitored and tacrolimus dosing adjusted by nephrology. JEFF CALHOUN MD Oct 18, 2018 07:59
[2018-10-18] MEDS: FOLIC ACID 1 MG TAB PO SCH (08:30)
[2018-10-18] MEDS: AMIODARONE 200 MG TAB PO SCH ×2 (08:30→21:14)
[2018-10-18] MEDS: MAGNESIUM OXIDE 400 MG TAB PO SCH ×2 (08:30→21:13)
[2018-10-18] MEDS: SOD PHOS MONO/DIBAS 250 MG TAB PO SCH ×2 (08:30→21:13)
[2018-10-18] MEDS: APIXABAN 5 MG TABLET PO SCH ×2 (08:30→21:14)
[2018-10-18] MEDS: MULTIVIT/CA CARB/B CMPLX/FA TAB PO SCH (08:30)
[2018-10-18] MEDS: CINACALCET 30 MG TAB PO SCH (08:31)
[2018-10-18] MEDS: TACROLIMUS 0.5 MG CAP PO SCH ×2 (08:31→21:13)
[2018-10-18] MEDS: FAMOTIDINE 20 MG TAB PO SCH ×2 (08:31→21:13)
[2018-10-18] MEDS: DILTIAZEM (CD) 240 MG CAP PO SCH (08:31)
--- NOTE | 2018-10-18 10:49 | CONS ---
Assessment/Plan Assessment/Plan Hospital Course (Demo Recall) 1. Kidney transplant status. He underwent a cadaveric kidney transplant in 2006 at [facility]. He is on immunosuppressive therapy. His serum creatinine had risen to as high as 1.82 mg/dL and has decreased since. We are aiming for a tacrolimus trough level of 5. I will continue current medication. 2. Anemia 3. Hypertension 4. Peripheral artery disease status post left below the knee amputation. The wound is healing . He is now on the acute rehab unit for a comprehensive rehabilitation program . 5. Hyperparathyroidism with elevated serum calcium. He is on calcitriol which I will discontinue because of the elevated calcium. He is now on cinacalcet. 6. Hypomagnesemia and hypophosphatemia due to tacrolimus causing losses through the kidney. I will restart oral phosphorus tablets and oral magnesium tablets Consultation Date/Type/Reason Admit Date/Time Oct 08, 2018 at 16:11 Initial Consult Date 10/08/18 Type of Consult Nephrology Requesting Provider: FITO GAY MD, [facility] Date/Time of Note DATE: 10/18/18 TIME: 10:47 24 HR Interval Summary Free Text/Dictation This patient is being seen in nephrologic follow-up. He is awake and alert. He has no new complaints. Constitutional: no complaints, improved Exam/Review of Systems Exam Vitals Vital Signs Date Temp Pulse Resp B/P (MAP) Pulse Ox O2 O2 Flow FiO2 Time Delivery Rate 10/18/18 98.0 82 18 150/84 99 Room Air 07:00 (106) Intake and Output 10/17/18 10/17/18 10/18/18 1515:00 23:00 07:00 IntakeIntake Total 2080 ml 120 ml OutputOutput Total 250 ml 1300 ml 1100 ml BalanceBalance -250 ml 780 ml -980 ml Exam He is status post a left below the knee amputation. Constitutional: alert, oriented, frail Respiratory: clear to auscultation, normal air movement Cardiovascular: regular rate and rhythm Results Result Diagram: 10/18/18 0550 10/18/18 0550 Results 24hrs Laboratory Tests Test 10/18/18 05:50 White Blood Count 5.0 Red Blood Count 3.50 L Hemoglobin 10.0 L Hematocrit 31.6 L Mean Corpuscular Volume 90.3 Mean Corpuscular Hemoglobin 28.6 L Mean Corpuscular Hemoglobin Concent 31.6 L Red Cell Distribution Width 19.9 H Platelet Count 200 Mean Platelet Volume 9.7 Immature Granulocytes % 0.400 Neutrophils % 57.7 Lymphocytes % 16.9 Monocytes % 13.9 H Eosinophils % 10.5 H Basophils % 0.6 Nucleated Red Blood Cells % 0.0 Immature Granulocytes # 0.020 Neutrophils # 2.9 Lymphocytes # 0.9 Monocytes # 0.7 Eosinophils # 0.5 Basophils # 0.0 Nucleated Red Blood Cells # 0.0 Sodium Level 141 Potassium Level 3.9 Chloride Level 106 Carbon Dioxide Level 28 Anion Gap 7 Blood Urea Nitrogen 19 Creatinine 1.57 H Est Glomerular Filtrat Rate mL/min 45 L Glucose Level 88 Calcium Level 9.9 Phosphorus Level 3.0 Magnesium Level 2.2 Total Bilirubin 0.3 Direct Bilirubin 0.00 Indirect Bilirubin 0.3 Aspartate Amino Transf (AST/SGOT) 48 H Alanine Aminotransferase (ALT/SGPT) 36 Alkaline Phosphatase 145 H Total Protein 7.1 Albumin 3.6 Globulin 3.50 H Albumin/Globulin Ratio 1.02 Medications Medication Current Medications Miscellaneous [facility] This patient yi... PRN PRN XX WOUND CARE; Start 10/08/18 at 17:00 Acetaminophen (Tylenol Tab) 650 mg Q6H PRN PO MILD PAIN(1-3)OR ELEVATED TEMP; Start 10/08/18 at 17:00 Amiodarone HCl (Cordarone) 200 mg BID PO Last administered on 10/18/18 08:30; Admin Dose 200 MG; Start 10/08/18 at 21:00 Apixaban (Eliquis) 2.5 mg BID PO Last administered on 10/18/18 08:30; Admin Dose 2.5 MG; Start 10/08/18 at 21:00 Diltiazem HCl (Cardizem Cd) 240 mg DAILY PO Last administered on 10/18/18 08:31; Admin Dose 240 MG; Start 10/09/18 at 09:00 Folic Acid (Folic Acid) 1 mg DAILY PO Last administered on 10/18/18 08:30; Admin Dose 1 MG; Start 10/09/18 at 09:00 Famotidine (Pepcid) 20 mg BID PO Last administered on 10/18/18 08:31; Admin Dose 20 MG; Start 10/08/18 at 21:00 Hydromorphone HCl (Dilaudid) 1 mg Q4H PRN IV SEVERE PAIN LEVEL 7-10 Last administered on 10/16/18 16:56; Admin Dose 1 MG; Start 10/08/18 at 17:00 Multivit/Ca Carb/ B Cmplx/FA/Prenat (Flor-Elisa) 1 tab DAILY PO Last administered on 10/18/18 08:30; Admin Dose 1 TAB; Start 10/09/18 at 09:00 Magnesium Hydroxide (Milk Of Mag) 30 ml DAILY PRN PO CONSTIPATION; Start 10/08/18 at 17:00 Docusate Sodium (Colace) 100 mg DAILY PO Last administered on 10/17/18 09:05; Admin Dose 100 MG; Start 10/09/18 at 09:00 Tacrolimus (Prograf) 0.5 mg BID PO Last administered on 10/18/18 08:31; Admin Dose 0.5 MG; Start 10/12/18 at 09:00 Gabapentin (Neurontin) 100 mg HS PO Last administered on 10/17/18 20:22; Admin Dose 100 MG; Start 10/12/18 at 21:00 Cinacalcet (Sensipar) 30 mg DAILY PO Last administered on 10/18/18 08:31; Admin Dose 30 MG; Start 10/12/18 at 14:00 Collagenase (Santyl) 1 applic DAILY TOP Last administered on 10/17/18 09:12; Admin Dose 1 APPLIC; Start 10/14/18 at 14:00 Sodium Phosphate (Kphos Neutral) 250 mg BID PO Last administered on 10/18/18 08:30; Admin Dose 250 MG; Start 10/15/18 at 09:00 Magnesium Oxide (Mag-Ox 400) 400 mg TID PO Last administered on 10/18/18 08:30; Admin Dose 400 MG; Start 10/16/18 at 21:00 Acetaminophen/ Hydrocodone Bitart ([place] (5/325)) 1 tab Q4H PRN PO MODERATE PAIN LEVEL 1-5; Start 10/16/18 at 21:00 Acetaminophen/ Hydrocodone Bitart ([place] (5/325)) 2 tab Q4H PRN PO MODERATE PAIN LEVEL >5 Last administered on 7/4/19at 09:02; Admin Dose 2 TAB; Start 10/16/18 at 21:00 ERIN MONTOYA MD Oct 18, 2018 10:49
[2018-10-18] MEDS: DOCUSATE SODIUM 100 MG CAP PO SCH (11:30)
[2018-10-18] MEDS: COLLAGENASE 5 GM (UD JAR) TOP SCH (11:33)
--- NOTE | 2018-10-18 11:59 | CONS ---
[facility] HCIS Consult Follow-up Patient Name: Alphonso Lee Unit Number: [id number] Date of : 1960 Patient Status: Admitted Inpatient Attending Doctor: Fito Landavedre MD,[facility] Edit: CLARE PIRES M.D. on 10/18/18 @ 20:34 Pranay: I discussed the management with GEORGE Marti and agree Assessment/Plan Assessment/Plan Hospital Course (Demo Recall) # sepsis, musculoskeletal, derm - h/o sepsis due infected left BKA stump - h/o infected L BKA stump site - h/o further revision of L BKA site and wound vac placement on 10/02/2018. Path showed gangrenous necrosis of skin and subcutaneous tissue, fibrous connective tissue and skeletal muscle tissue with focal necrosis, segment of bone with no evidence of osteomyelitis - h/o exploration and washout, debridement and VAC placement to L infected BKA site on 09/19/2018; The superficial wound culture grew B. fragilis on 09/18/2018; the intra-operative culture grew coag neg staph and B. fragilis on 09/19/18. CoNS was a likely colonizer; Pt took levofloxacin and metronidazole (09/17/2018- 10/04/2018) for these. The intra-operative fungal culture on 09/19/18 grew A. versicolor group, submitted reference lab for sensitivity; Pt took ambisome (10/02/2018-10/06/2018); the path was negative for malignancy. - h/o L BKA on 09/13/2018 - h/o draining wound, necrosis and infection of L TMA site (prior to L BKA). ESR 121 on 09/12/2018. # renal, cardiac - h/o renal transplant at [facility] in 2006, maintained on tacrolimus - h/o immunocompromised status - A fib with RVR, converted to SR - TWIN, multifactorial: Ambisome, tacrolimus, recent sepsis # other conditions - h/o transaminitis - adverse reaction to cefazolin (hives), meropenem (pruritus) Recommendations: - continue to monitor the wound closely off antibiotics - continue local wound care as per Dr. Cortes - if pt develops purulent drainage, we will collect sample and send for wound culture - Pt to f/u in office with Dr. Pires in 1 week post discharge. Plan was d/w patient, RN Ruba and XAVIER Almaguer, and with Dr. Pires. Consultation Date/Type/Reason Admit Date/Time Oct 08, 2018 at 16:11 Initial Consult Date 10/08/18 Type of Consult Infectious Disease Requesting Provider: FITO LANDAVERDE MD, [facility] Date/Time of Note DATE: 10/18/18 TIME: 11:55 24 HR Interval Summary Free Text/Dictation C/o feeling "drowsy". "Maybe I need to get more sleep?". Denies pain, SOB, n/v/d, dysuria. Pt no longer with wound VAC; daily dressing changes with Santyl ointment to L lateral full thickness wound and Silver Alginate to L medial incision with eschar per Dr. Cortes' orders on 10/14/18. Participating well with PT per d/w nursing. Exam/Review of Systems Exam Vitals Vital Signs Date Temp Pulse Resp B/P (MAP) Pulse Ox O2 O2 Flow FiO2 Time Delivery Rate 10/18/18 98.0 82 18 150/84 99 Room Air 07:00 (106) Intake and Output 10/17/18 10/17/18 10/18/18 1515:00 23:00 07:00 IntakeIntake Total 2080 ml 120 ml OutputOutput Total 250 ml 1300 ml 1100 ml BalanceBalance -250 ml 780 ml -980 ml Exam Constitutional: alert, oriented, well developed, other (lying in bed in NAD; at bedside and on her cell phone) Psych: no complaints, nl mood/affect Head: normocephalic, atraumatic Eyes: nl conjunctiva, nl lids, nl sclera ENMT: nl external ears & nose, nl nasal mucosa & septum, mucosa pink and moist (no thrush) Neck: supple, non-tender Respiratory: clear to auscultation, normal air movement; No wheezing Cardiovascular: regular rate and rhythm, nl pulses Gastrointestinal: soft, non-tender, bowel sounds (normoactive) No distended Musculoskeletal: other (S/p L BKA with sutures intact and eschar noted medial and lateral wounds with yellowish slough on lateral wounds; no purulent drainage noted) Extremities: No edea; other (L BKA dressing/KATHIE bandage removed by nursing. Nurses notes and photos in chart were reviewed) 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: nl mental status, nl speech Skin: nl turgor, other (BUE old AVF sites); No rash or lesions Results Result Diagram: 10/18/18 0550 10/18/18 0550 Results 24hrs Laboratory Tests Test 10/18/18 05:50 White Blood Count 5.0 Red Blood Count 3.50 L Hemoglobin 10.0 L Hematocrit 31.6 L Mean Corpuscular Volume 90.3 Mean Corpuscular Hemoglobin 28.6 L Mean Corpuscular Hemoglobin Concent 31.6 L Red Cell Distribution Width 19.9 H Platelet Count 200 Mean Platelet Volume 9.7 Immature Granulocytes % 0.400 Neutrophils % 57.7 Lymphocytes % 16.9 Monocytes % 13.9 H Eosinophils % 10.5 H Basophils % 0.6 Nucleated Red Blood Cells % 0.0 Immature Granulocytes # 0.020 Neutrophils # 2.9 Lymphocytes # 0.9 Monocytes # 0.7 Eosinophils # 0.5 Basophils # 0.0 Nucleated Red Blood Cells # 0.0 Sodium Level 141 Potassium Level 3.9 Chloride Level 106 Carbon Dioxide Level 28 Anion Gap 7 Blood Urea Nitrogen 19 Creatinine 1.57 H Est Glomerular Filtrat Rate mL/min 45 L Glucose Level 88 Calcium Level 9.9 Phosphorus Level 3.0 Magnesium Level 2.2 Total Bilirubin 0.3 Direct Bilirubin 0.00 Indirect Bilirubin 0.3 Aspartate Amino Transf (AST/SGOT) 48 H Alanine Aminotransferase (ALT/SGPT) 36 Alkaline Phosphatase 145 H Total Protein 7.1 Albumin 3.6 Globulin 3.50 H Albumin/Globulin Ratio 1.02 Medications Medication Current Medications Miscellaneous Information (Pending Santyl Order For Wound Care) This patient yi... PRN PRN XX WOUND CARE; Start 10/08/18 at 17:00 Acetaminophen (Tylenol Tab) 650 mg Q6H PRN PO MILD PAIN(1-3)OR ELEVATED TEMP; Start 10/08/18 at 17:00 Amiodarone HCl (Cordarone) 200 mg BID PO Last administered on 10/18/18 08:30; Admin Dose 200 MG; Start 10/08/18 at 21:00 Apixaban (Eliquis) 2.5 mg BID PO Last administered on 10/18/18 08:30; Admin Dose 2.5 MG; Start 10/08/18 at 21:00 Diltiazem HCl (Cardizem Cd) 240 mg DAILY PO Last administered on 10/18/18 08:3 1; Admin Dose 240 MG; Start 10/09/18 at 09:00 Folic Acid (Folic Acid) 1 mg DAILY PO Last administered on 10/18/18 08:30; Admin Dose 1 MG; Start 10/09/18 at 09:00 Famotidine (Pepcid) 20 mg BID PO Last administered on 10/18/18 08:31; Admin Dose 20 MG; Start 10/08/18 at 21:00 Hydromorphone HCl (Dilaudid) 1 mg Q4H PRN IV SEVERE PAIN LEVEL 7-10 Last administered on 10/16/18 16:56; Admin Dose 1 MG; Start 10/08/18 at 17:00 Multivit/Ca Carb/ B Cmplx/FA/Prenat (Flor-Elisa) 1 tab DAILY PO Last administ ered on 10/18/18 08:30; Admin Dose 1 TAB; Start 10/09/18 at 09:00 Magnesium Hydroxide (Milk Of Mag) 30 ml DAILY PRN PO CONSTIPATION; Start 10/08/18 at 17:00 Docusate Sodium (Colace) 100 mg DAILY PO Last administered on 10/18/18 11:30; Admin Dose 100 MG; Start 10/09/18 at 09:00 Tacrolimus (Prograf) 0.5 mg BID PO Last administered on 10/18/18 08:31; Admin Dose 0.5 MG; Start 10/12/18 at 09:00 Gabapentin (Neurontin) 100 mg HS PO Last administered on 10/17/18 20:22; Admin Dose 100 MG; Start 10/12/18 at 21:00 Cinacalcet (Sensipar) 30 mg DAILY PO Last administered on 10/18/18 08:31; Admin Dose 30 MG; Start 10/12/18 at 14:00 Collagenase (Santyl) 1 applic DAILY TOP Last administered on 10/18/18at 11:33; Admin Dose 1 APPLIC; Start 10/14/18 at 14:00 Sodium Phosphate (Kphos Neutral) 250 mg BID PO Last administered on 10/18/18at 08:30; Admin Dose 250 MG; Start 10/15/18 at 09:00 Acetaminophen/ Hydrocodone Bitart ([place] (5/325)) 1 tab Q4H PRN PO MODERATE PAIN LEVEL 1-5; Start 10/16/18 at 21:00 Acetaminophen/ Hydrocodone Bitart ([place] (5/325)) 2 tab Q4H PRN PO MODERATE PAIN LEVEL >5 Last administered on 10/17/18at 09:02; Admin Dose 2 TAB; Start 10/16/18 at 21:00 Magnesium Oxide (Mag-Ox 400) 400 mg BID PO ; Start 10/18/18 at 21:00 ROSALBA MARTI NP Oct 18, 2018 11:59
[2018-10-18 14:00] VITALS: BP 109/63; PULSE 79; RESP 18
[2018-10-18 20:00] VITALS: BP 122/68; PULSE 79; RESP 18
[2018-10-18] MEDS: GABAPENTIN 100 MG CAP PO SCH (21:13)
[2018-10-19 02:00] VITALS: BP 114/70; PULSE 75; RESP 18
[2018-10-19 07:30] VITALS: BP 154/86; PULSE 84; RESP 18
--- NOTE | 2018-10-19 09:45 | PN ---
Date/Time of Note Date/Time of Note DATE: 10/19/18 TIME: 09:43 Subjective AWAKE ALET MILD PAIN Objective Vital Signs Date Temp Pulse Resp B/P (MAP) Pulse Ox O2 O2 Flow FiO2 Time Delivery Rate 10/19/18 97.4 84 18 154/86 100 Room Air 07:30 (108) Intake and Output 10/18/18 10/18/18 10/19/18 1515:00 23:00 07:00 IntakeIntake Total 1200 ml 850 ml OutputOutput Total 250 ml 800 ml BalanceBalance -250 ml 400 ml 850 ml Exam LUNGS CTA COR RRR L STUMP DRESSING DRY CLOF BED MOB , XT AND GAIT SV. FWW FOR GAIT Results/Medications Result Diagram: 10/18/18 0550 10/18/18 0550 Medications Current Medications Miscellaneous Information (Pending [facility] Order For Wound Care) This patient yi... PRN PRN XX WOUND CARE; Start 10/08/18 at 17:00 Acetaminophen (Tylenol Tab) 650 mg Q6H PRN PO MILD PAIN(1-3)OR ELEVATED TEMP; Start 10/08/18 at 17:00 Amiodarone HCl (Cordarone) 200 mg BID PO Last administered on 10/18/18 21:14; Admin Dose 200 MG; Start 10/08/18 at 21:00 Apixaban (Eliquis) 2.5 mg BID PO Last administered on 10/18/18 21:14; Admin Dose 2.5 MG; Start 10/08/18 at 21:00 Diltiazem HCl (Cardizem Cd) 240 mg DAILY PO Last administered on 10/18/18 08:31; Admin Dose 240 MG; Start 10/09/18 at 09:00 Folic Acid (Folic Acid) 1 mg DAILY PO Last administered on 10/18/18 08:30; Admin Dose 1 MG; Start 10/09/18 at 09:00 Famotidine (Pepcid) 20 mg BID PO Last administered on 10/18/18 21:13; Admin Dose 20 MG; Start 10/08/18 at 21:00 Hydromorphone HCl (Dilaudid) 1 mg Q4H PRN IV SEVERE PAIN LEVEL 7-10 Last administered on 10/16/18 16:56; Admin Dose 1 MG; Start 10/08/18 at 17:00 Multivit/Ca Carb/ B Cmplx/FA/Prenat (Flor-Elisa) 1 tab DAILY PO Last administered on 10/18/18 08:30; Admin Dose 1 TAB; Start 10/09/18 at 09:00 Magnesium Hydroxide (Milk Of Mag) 30 ml DAILY PRN PO CONSTIPATION; Start 10/08/18 at 17:00 Docusate Sodium (Colace) 100 mg DAILY PO Last administered on 10/18/18 11:30; Admin Dose 100 MG; Start 10/09/18 at 09:00 Tacrolimus (Prograf) 0.5 mg BID PO Last administered on 10/18/18 21:13; Admin Dose 0.5 MG; Start 10/12/18 at 09:00 Gabapentin (Neurontin) 100 mg HS PO Last administered on 10/18/18 21:13; Admin Dose 100 MG; Start 10/12/18 at 21:00 Cinacalcet (Sensipar) 30 mg DAILY PO Last administered on 10/18/18 08:31; Admin Dose 30 MG; Start 10/12/18 at 14:00 Collagenase (Santyl) 1 applic DAILY TOP Last administered on 10/18/18 11:33; Admin Dose 1 APPLIC; Start 10/14/18 at 14:00 Sodium Phosphate (Kphos Neutral) 250 mg BID PO Last administered on 10/18/18 21:13; Admin Dose 250 MG; Start 10/15/18 at 09:00 Acetaminophen/ Hydrocodone Bitart ([place] (5/325)) 1 tab Q4H PRN PO MODERATE PAIN LEVEL 1-5; Start 10/16/18 at 21:00 Acetaminophen/ Hydrocodone Bitart ([place] (5/325)) 2 tab Q4H PRN PO MODERATE PAIN LEVEL >5 Last administered on 10/17/18 09:02; Admin Dose 2 TAB; Start 10/16/18 at 21:00 Magnesium Oxide (Mag-Ox 400) 400 mg BID PO Last administered on 10/18/18 21:13; Admin Dose 400 MG; Start 10/18/18 at 21:00 Assessment/Plan Additional Assessment/Plan 1. Rehabilitation. Status post l-below knee amputation.GREAT GAINS CONTINUE THERAPEUTIC INTERVENTIONS. POORLY HEALING STUMP CONTINUE WITH LOCAL CARE AND DSG CHANGES 2. Essential hypertension, currently stable. 3. Peripheral artery disease. Continue his wound care. 4. History of renal failure, status post transplant in 2006. Currently on immunosuppressive therapy. Creatinine continues to be monitored and tacrolimus dosing adjusted by nephrology.BUN/CREAT STABLE JEFF CALHOUN MD Oct 19, 2018 09:45
[2018-10-19] MEDS: DOCUSATE SODIUM 100 MG CAP PO SCH (10:26)
[2018-10-19] MEDS: MULTIVIT/CA CARB/B CMPLX/FA TAB PO SCH (10:27)
[2018-10-19] MEDS: APIXABAN 5 MG TABLET PO SCH ×2 (10:27→21:21)
[2018-10-19] MEDS: FAMOTIDINE 20 MG TAB PO SCH ×2 (10:27→21:21)
[2018-10-19] MEDS: TACROLIMUS 0.5 MG CAP PO SCH ×2 (10:28→21:21)
[2018-10-19] MEDS: FOLIC ACID 1 MG TAB PO SCH (10:28)
[2018-10-19] MEDS: SOD PHOS MONO/DIBAS 250 MG TAB PO SCH ×2 (10:28→21:21)
[2018-10-19] MEDS: MAGNESIUM OXIDE 400 MG TAB PO SCH ×2 (10:28→21:21)
[2018-10-19] MEDS: COLLAGENASE 5 GM (UD JAR) TOP SCH (10:29)
[2018-10-19] MEDS: CINACALCET 30 MG TAB PO SCH (10:37)
[2018-10-19] MEDS: DILTIAZEM (CD) 240 MG CAP PO SCH (10:37)
[2018-10-19] MEDS: AMIODARONE 200 MG TAB PO SCH ×2 (10:37→21:21)
[2018-10-19] MEDS: HYDROCODONE/APAP (5/325) TAB PO PRN (10:41)
[2018-10-19 14:00] VITALS: BP_SYST 107; BP_SYST 144; BP_DIAS 54; BP_DIAS 85; PULSE 75; PULSE 79; RESP 18; RESP 20
--- NOTE | 2018-10-19 15:30 | CONS ---
Assessment/Plan Assessment/Plan Hospital Course (Demo Recall) 1. Kidney transplant status. He underwent a cadaveric kidney transplant in 2006 at [facility]. He is on immunosuppressive therapy. His serum creatinine had risen to as high as 1.82 mg/dL and has decreased since. We are aiming for a tacrolimus trough level of 5. I will continue current medication. 2. Anemia 3. Hypertension 4. Peripheral artery disease status post left below the knee amputation. The wound is more necrotic than when I last saw. He is now on the acute rehab unit for a comprehensive rehabilitation program . 5. Hyperparathyroidism . 6. Hypomagnesemia and hypophosphatemia due to tacrolimus causing losses through the kidney. I will restart oral phosphorus tablets and oral magnesium tablets Consultation Date/Type/Reason Admit Date/Time Oct 08, 2018 at 16:11 Initial Consult Date 10/08/18 Type of Consult Nephrology Requesting Provider: FITO GAY MD, [facility] Date/Time of Note DATE: 10/19/18 TIME: 15:28 24 HR Interval Summary Free Text/Dictation This patient is being seen in nephrologic follow-up. He is awake and alert. He has no new complaints. Constitutional: no complaints, improved Exam/Review of Systems Exam Vitals Vital Signs Date Temp Pulse Resp B/P (MAP) Pulse Ox O2 O2 Flow FiO2 Time Delivery Rate 10/19/18 97.4 84 18 154/86 100 Room Air 07:30 (108) Intake and Output 10/18/18 10/18/18 10/19/18 1414:59 22:59 06:59 IntakeIntake Total 1200 ml 850 ml OutputOutput Total 250 ml 800 ml BalanceBalance -250 ml 400 ml 850 ml Exam His left leg is status post a below the knee amputation. The stump wound is now getting necrotic. Constitutional: alert, oriented, frail Respiratory: clear to auscultation, normal air movement Cardiovascular: regular rate and rhythm Gastrointestinal: soft, non-tender Results Result Diagram: 10/18/18 0550 10/18/18 0550 Medications Medication Current Medications Miscellaneous Information [facility] This patient yi... PRN PRN XX WOUND CARE; Start 10/08/18 at 17:00 Acetaminophen (Tylenol Tab) 650 mg Q6H PRN PO MILD PAIN(1-3)OR ELEVATED TEMP; Start 10/08/18 at 17:00 Amiodarone HCl (Cordarone) 200 mg BID PO Last administered on 10/19/18 10:37; Admin Dose 200 MG; Start 10/08/18 at 21:00 Apixaban (Eliquis) 2.5 mg BID PO Last administered on 10/19/18 10:27; Admin Dose 2.5 MG; Start 10/08/18 at 21:00 Diltiazem HCl (Cardizem Cd) 240 mg DAILY PO Last administered on 10/19/18 10:37; Admin Dose 240 MG; Start 10/09/18 at 09:00 Folic Acid (Folic Acid) 1 mg DAILY PO Last administered on 10/19/18 10:28; Admin Dose 1 MG; Start 10/09/18 at 09:00 Famotidine (Pepcid) 20 mg BID PO Last administered on 10/19/18 10:27; Admin Dose 20 MG; Start 10/08/18 at 21:00 Hydromorphone HCl (Dilaudid) 1 mg Q4H PRN IV SEVERE PAIN LEVEL 7-10 Last administered on 10/16/18 16:56; Admin Dose 1 MG; Start 10/08/18 at 17:00 Multivit/Ca Carb/ B Cmplx/FA/Prenat (Flor-Elisa) 1 tab DAILY PO Last administered on 10/19/18 10:27; Admin Dose 1 TAB; Start 10/09/18 at 09:00 Magnesium Hydroxide (Milk Of Mag) 30 ml DAILY PRN PO CONSTIPATION; Start 10/08/18 at 17:00 Docusate Sodium (Colace) 100 mg DAILY PO Last administered on 10/19/18 10:26; Admin Dose 100 MG; Start 10/09/18 at 09:00 Tacrolimus (Prograf) 0.5 mg BID PO Last administered on 10/19/18 10:28; Admin Dose 0.5 MG; Start 10/12/18 at 09:00 Gabapentin (Neurontin) 100 mg HS PO Last administered on 10/18/18 21:13; Admin Dose 100 MG; Start 10/12/18 at 21:00 Cinacalcet (Sensipar) 30 mg DAILY PO Last administered on 10/19/18 10:37; Admin Dose 30 MG; Start 10/12/18 at 14:00 Collagenase (Santyl) 1 applic DAILY TOP Last administered on 10/19/18 10:29; Admin Dose 1 APPLIC; Start 10/14/18 at 14:00 Sodium Phosphate (Kphos Neutral) 250 mg BID PO Last administered on 10/19/18 10:28; Admin Dose 250 MG; Start 10/15/18 at 09:00 Acetaminophen/ Hydrocodone Bitart ([place] (5/325)) 1 tab Q4H PRN PO MODERATE PAIN LEVEL 1-5; Start 10/16/18 at 21:00 Acetaminophen/ Hydrocodone Bitart ([place] (5/325)) 2 tab Q4H PRN PO MODERATE PAIN LEVEL >5 Last administered on 10/19/18 10:41; Admin Dose 2 TAB; Start 10/16/18 at 21:00 Magnesium Oxide (Mag-Ox 400) 400 mg BID PO Last administered on 10/19/18 10:28; Admin Dose 400 MG; Start 10/18/18 at 21:00 ERIN MONTOYA MD Oct 19, 2018 15:30
--- NOTE | 2018-10-19 15:33 | PN ---
Date/Time of Note Date/Time of Note DATE: 10/19/18 TIME: 15:29 Assessment/Plan VTE Prophylaxis Risk score (from Ns)>0 risk: 3 [place] [facility] [place] contraindicated: other Pharmacological prophylaxis: apixaban Lines/Catheters IV Catheter Type (from [facility]): Saline Lock Urinary Cath still in place: No Assessment/Plan Hospital Course Assessment/Plan Severe left peripheral artery disease with infected left TMA stump- stable - s/p Urgent left below-knee amputation on 09/13/2018 with washout. Further revision on 10/02. - on Eliquis - finished Antibiotics A. fib -s/p cards review-> Continue on amiodarone until 10/20, 1 month tx. continue on diltiazem -cont ATC S/p Sepsis secondary to lower extremity infection - s/p abx completion - resolved Peripheral vascular disease. - Continue statins History of renal transplant. - nephrology following. - avoiding nephrotoxic agents - continue immunosuppressants Normocytic anemia - stable HLD - on statin Hyperparathyroidism -continue current tx Dispo/Plan. continue rehab services. monitor labs Discussed POC with Dr. Torrez Result Diagram: 10/18/18 0550 10/18/18 0550 Subjective 24 Hr Interval Summary Free Text/Dictation no specific complaints. 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 PRN PRN XX WOUND CARE; Start 10/08/18 at 17:00 Acetaminophen (Tylenol Tab) 650 mg Q6H PRN PO MILD PAIN(1-3)OR ELEVATED TEMP; Start 10/08/18 at 17:00 Amiodarone HCl (Cordarone) 200 mg BID PO Last administered on 10/19/18 10:37; Admin Dose 200 MG; Start 10/08/18 at 21:00 Apixaban (Eliquis) 2.5 mg BID PO Last administered on 10/19/18 10:27; Admin Dose 2.5 MG; Start 10/08/18 at 21:00 Diltiazem HCl (Cardizem Cd) 240 mg DAILY PO Last administered on 10/19/18 10:37; Admin Dose 240 MG; Start 10/09/18 at 09:00 Folic Acid (Folic Acid) 1 mg DAILY PO Last administered on 10/19/18 10:28; Admin Dose 1 MG; Start 10/09/18 at 09:00 Famotidine (Pepcid) 20 mg BID PO Last administered on 10/19/18 10:27; Admin Do se 20 MG; Start 10/08/18 at 21:00 Hydromorphone HCl (Dilaudid) 1 mg Q4H PRN IV SEVERE PAIN LEVEL 7-10 Last administered on 10/16/18 16:56; Admin Dose 1 MG; Start 10/08/18 at 17:00 Multivit/Ca Carb/ B Cmplx/FA/Prenat (Flor-Elisa) 1 tab DAILY PO Last administered on 10/19/18 10:27; Admin Dose 1 TAB; Start 10/09/18 at 09:00 Magnesium Hydroxide (Milk Of Mag) 30 ml DAILY PRN PO CONSTIPATION; Start at 17:00 Docusate Sodium (Colace) 100 mg DAILY PO Last administered on 10/19/18 10:26; Admin Dose 100 MG; Start 10/09/18 at 09:00 Tacrolimus (Prograf) 0.5 mg BID PO Last administered on 10/19/18 10:28; Admin Dose 0.5 MG; Start 10/12/18 at 09:00 Gabapentin (Neurontin) 100 mg HS PO Last administered on 10/18/18 21:13; Admin Dose 100 MG; Start 10/12/18 at 21:00 Cinacalcet (Sensipar) 30 mg DAILY PO Last administered on 10/19/18 10:37; Admin Dose 30 MG; Start 10/12/18 at 14:00 Collagenase (Santyl) 1 applic DAILY TOP Last administered on 10/19/18 10:29; Admin Dose 1 APPLIC; Start 10/14/18 at 14:00 Sodium Phosphate (Kphos Neutral) 250 mg BID PO Last administered on 10/19/18 10:28; Admin Dose 250 MG; Start 10/15/18 at 09:00 Acetaminophen/ Hydrocodone Bitart ([place] (5/325)) 1 tab Q4H PRN PO MODERATE PAIN LEVEL 1-5; Start 10/16/18 at 21:00 Acetaminophen/ Hydrocodone Bitart ([place] (5/325)) 2 tab Q4H PRN PO MODERATE PAIN LEVEL >5 Last administered on 10/19/18 10:41; Admin Dose 2 TAB; Start 10/16/18 at 21:00 Magnesium Oxide (Mag-Ox 400) 400 mg BID PO Last administered on 10/19/18 10:28; Admin Dose 400 MG; Start 10/18/18 at 21:00 CORY ANDREW NP Oct 19, 2018 15:33
--- NOTE | 2018-10-19 16:07 | CONS ---
[facility] HCIS Consult Follow-up Patient Name: Alphonso Lee Unit Number: [id number] Date of : 1960 Patient Status: Admitted Inpatient Attending Doctor: Fito Landaverde MD,[facility] Edit: CLARE PIRES M.D. on 10/20/18 @ 11:20 Pranay: I discussed the management with GEORGE Marti and agree Assessment/Plan Assessment/Plan Hospital Course (Demo Recall) # sepsis, musculoskeletal, derm - h/o sepsis due infected left BKA stump - h/o infected L BKA stump site - h/o further revision of L BKA site and wound vac placement on 10/02/2018. Path showed gangrenous necrosis of skin and subcutaneous tissue, fibrous connective tissue and skeletal muscle tissue with focal necrosis, segment of bone with no evidence of osteomyelitis - h/o exploration and washout, debridement and VAC placement to L infected BKA site on 09/19/2018; The superficial wound culture grew B. fragilis on 09/18/2018; the intra-operative culture grew coag neg staph and B. fragilis on 09/19/18. CoNS was a likely colonizer; Pt took levofloxacin and metronidazole (09/17/2018- 10/04/2018) for these. The intra-operative fungal culture on 09/19/18 grew A. versicolor group, submitted reference lab for sensitivity; Pt took ambisome (10/02/2018-10/06/2018); the path was negative for malignancy. - h/o L BKA on 09/13/2018 - h/o draining wound, necrosis and infection of L TMA site (prior to L BKA). ESR 121 on 09/12/2018. # renal, cardiac - h/o renal transplant at [facility] in 2006, maintained on tacrolimus - h/o immunocompromised status - A fib with RVR, converted to SR - TWIN, multifactorial: Ambisome, tacrolimus, recent sepsis # other conditions - h/o transaminitis - adverse reaction to cefazolin (hives), meropenem (pruritus) Recommendations: - continue to monitor the wound closely off antibiotics - continue local wound care as per Dr. Cortes - new photos to be taken tomorrow with wound dressing change - if pt develops purulent drainage, we will collect sample and send for wound culture - Pt to f/u in office with Dr. Pires in 1 week post discharge. Plan was d/w XAVIER Yeh and with Dr. Pires. Consultation Date/Type/Reason Admit Date/Time Oct 08, 2018 at 16:11 Initial Consult Date 10/08/18 Type of Consult Infectious Disease Requesting Provider: FITO LANDAVERDE MD, [facility] Date/Time of Note DATE: 10/19/18 TIME: 16:07 24 HR Interval Summary Free Text/Dictation No acute issues per d/w nursing. ROS deferred as pt is asleep. Exam/Review of Systems Exam Vitals Vital Signs Date Temp Pulse Resp B/P (MAP) Pulse Ox O2 O2 Flow FiO2 Time Delivery Rate 10/19/18 97.4 84 18 154/86 100 Room Air 07:30 (108) Intake and Output 10/18/18 10/18/18 10/19/18 1414:59 22:59 06:59 IntakeIntake Total 1200 ml 850 ml OutputOutput Total 250 ml 800 ml BalanceBalance -250 ml 400 ml 850 ml Exam Constitutional: well developed, other (sleeping soundly) Psych: other (unable to assess) Head: normocephalic, atraumatic Eyes: nl lids, other (eye glasses on his scalp) ENMT: nl external ears & nose, nl nasal mucosa & septum, other (unable to examine OP) Neck: other (not swollen) Respiratory: clear to auscultation, normal air movement; No wheezing Cardiovascular: regular rate and rhythm, nl pulses Gastrointestinal: other (normoactive) No distended Musculoskeletal: other (S/p L BKA with dressing/KATHIE bandage c/d/i) Extremities: No edema 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: other (neuro exam deferred as pt is asleep) Skin: nl turgor, other (BUE old AVF sites); No rash or lesions Results Result Diagram: 10/18/18 0550 10/18/18 0550 Medications Medication Current Medications Miscellaneous Information (Pending [facility] Order For Wound Care) This patient yi... PRN PRN XX WOUND CARE; Start 10/08/18 at 17:00 Acetaminophen (Tylenol Tab) 650 mg Q6H PRN PO MILD PAIN(1-3)OR ELEVATED TEMP; Start 10/08/18 at 17:00 Amiodarone HCl (Cordarone) 200 mg BID PO Last administered on 10/19/18 10:37; Admin Dose 200 MG; Start 10/08/18 at 21:00 Apixaban (Eliquis) 2.5 mg BID PO Last administered on 10/19/18 10:27; Admin Dose 2.5 MG; Start 10/08/18 at 21:00 Diltiazem HCl (Cardizem Cd) 240 mg DAILY PO Last administered on 10/19/18 10:37; Admin Dose 240 MG; Start 10/09/18 at 09:00 Folic Acid (Folic Acid) 1 mg DAILY PO Last administered on 10/19/18 10:28; Admin Dose 1 MG; Start 10/09/18 at 09:00 Famotidine (Pepcid) 20 mg BID PO Last administered on 10/19/18 10:27; Admin Dose 20 MG; Start 10/08/18 at 21:00 Hydromorphone HCl (Dilaudid) 1 mg Q4H PRN IV SEVERE PAIN LEVEL 7-10 Last administered on 10/16/18 16:56; Admin Dose 1 MG; Start 10/08/18 at 17:00 Multivit/Ca Carb/ B Cmplx/FA/Prenat (Flor-Elisa) 1 tab DAILY PO Last administered on 10/19/18 10:27; Admin Dose 1 TAB; Start 10/09/18 at 09:00 Magnesium Hydroxide (Milk Of Mag) 30 ml DAILY PRN PO CONSTIPATION; Start 10/08/18 at 17:00 Docusate Sodium (Colace) 100 mg DAILY PO Last administered on 10/19/18 10:26; Admin Dose 100 MG; Start 10/09/18 at 09:00 Tacrolimus (Prograf) 0.5 mg BID PO Last administered on 10/19/18 10:28; Admin Dose 0.5 MG; Start 10/12/18 at 09:00 Gabapentin (Neurontin) 100 mg HS PO Last administered on 10/18/18 21:13; Admin Dose 100 MG; Start 10/12/18 at 21:00 Cinacalcet (Sensipar) 30 mg DAILY PO Last administered on 10/19/18 10:37; Admin Dose 30 MG; Start 10/12/18 at 14:00 Collagenase (Santyl) 1 applic DAILY TOP Last administered on 10/19/18 10:29; Admin Dose 1 APPLIC; Start 10/14/18 at 14:00 Sodium Phosphate (Kphos Neutral) 250 mg BID PO Last administered on 10/19/18 10:28; Admin Dose 250 MG; Start 10/15/18 at 09:00 Acetaminophen/ Hydrocodone Bitart ([place] (5/325)) 1 tab Q4H PRN PO MODERATE PAIN LEVEL 1-5; Start 10/16/18 at 21:00 Acetaminophen/ Hydrocodone Bitart ([place] (5/325)) 2 tab Q4H PRN PO MODERATE PAIN LEVEL >5 Last administered on 10/19/18 10:41; Admin Dose 2 TAB; Start at 21:00 Magnesium Oxide (Mag-Ox 400) 400 mg BID PO Last administered on 10/19/18 10:28; Admin Dose 400 MG; Start 10/18/18 at 21:00 ROSALBA MARTI NP Oct 19, 2018 16:07
[2018-10-19 19:47] VITALS: BP 143/92; PULSE 78; RESP 18
[2018-10-19] MEDS: GABAPENTIN 100 MG CAP PO SCH (21:21)
[2018-10-20 02:00] VITALS: BP 125/82; PULSE 83; RESP 18
[2018-10-20 07:55] VITALS: BP 165/97; PULSE 75
[2018-10-20] MEDS: MULTIVIT/CA CARB/B CMPLX/FA TAB PO SCH (08:42)
[2018-10-20] MEDS: CINACALCET 30 MG TAB PO SCH (08:43)
[2018-10-20] MEDS: FOLIC ACID 1 MG TAB PO SCH (08:43)
[2018-10-20] MEDS: DOCUSATE SODIUM 100 MG CAP PO SCH (08:43)
[2018-10-20] MEDS: FAMOTIDINE 20 MG TAB PO SCH ×2 (08:43→21:24)
[2018-10-20] MEDS: MAGNESIUM OXIDE 400 MG TAB PO SCH ×2 (08:43→21:24)
[2018-10-20] MEDS: APIXABAN 5 MG TABLET PO SCH ×2 (08:44→21:24)
[2018-10-20] MEDS: DILTIAZEM (CD) 240 MG CAP PO SCH (08:45)
[2018-10-20] MEDS: HYDROCODONE/APAP (5/325) TAB PO PRN (08:46)
[2018-10-20] MEDS: SOD PHOS MONO/DIBAS 250 MG TAB PO SCH ×2 (09:53→21:23)
[2018-10-20] MEDS: COLLAGENASE 5 GM (UD JAR) TOP SCH ×2 (09:56→10:05)
[2018-10-20] MEDS: AMIODARONE 200 MG TAB PO SCH ×2 (09:57→21:24)
[2018-10-20] MEDS: TACROLIMUS 0.5 MG CAP PO SCH ×2 (09:58→21:24)
[2018-10-20] MEDS: HYDROmorphONE 1 MG/ML SYG IV PRN ×4 (10:06→17:44)
--- NOTE | 2018-10-20 13:06 | CONS ---
Assessment/Plan Assessment/Plan Hospital Course (Demo Recall) 1. Kidney transplant status. He underwent a cadaveric kidney transplant in 2006 at [facility]. He is on immunosuppressive therapy. His serum creatinine continues to rise. We are aiming for a tacrolimus trough level of 5. I will continue current medication. Will check labs in a.m. 2. Anemia 3. Hypertension, his blood pressure has been high. I will add metoprolol XL. 4. Peripheral artery disease status post left below the knee amputation. The wound is more necrotic than when I last saw it . He may need more surgery on the left leg stump. Will await return of vascular surgeon. He is now on the acute rehab unit for a comprehensive rehabilitation program . 5. Hyperparathyroidism . 6. Hypomagnesemia and hypophosphatemia due to tacrolimus causing losses through the kidney. I will restart oral phosphorus tablets and oral magnesium tablets Consultation Date/Type/Reason Admit Date/Time Oct 08, 2018 at 16:11 Initial Consult Date 10/08/18 Type of Consult Nephrology Requesting Provider: FITO GAY MD, [facility] Date/Time of Note DATE: 10/20/18 TIME: 13:02 24 HR Interval Summary Free Text/Dictation This patient is being seen in nephrologic follow-up. He is awake and alert. He has no new problems. Constitutional: no complaints, improved Exam/Review of Systems Exam Vitals Vital Signs Date Temp Pulse Resp B/P (MAP) Pulse Ox O2 O2 Flow FiO2 Time Delivery Rate 10/20/18 97.9 75 165/97 98 Room Air 07:55 (119) 10/20/18 18 02:00 10/19/18 2.0 14:00 Intake and Output 10/19/18 10/19/18 10/20/18 1515:00 23:00 07:00 IntakeIntake Total 760 ml 800 ml OutputOutput Total 250 ml 400 ml BalanceBalance 510 ml 400 ml Exam Left leg is status post a below the knee amputation. There is poor wound healing over the left leg stump. There are some necrotic areas. Constitutional: alert Respiratory: clear to auscultation, normal air movement Cardiovascular: regular rate and rhythm Gastrointestinal: soft, non-tender Results Result Diagram: 10/20/18 0630 10/20/18 0630 Results 24hrs Laboratory Tests Test 10/20/18 06:30 White Blood Count 3.9 #L Red Blood Count 3.97 L Hemoglobin 11.0 L Hematocrit 35.2 L Mean Corpuscular Volume 88.7 Mean Corpuscular Hemoglobin 27.7 L Mean Corpuscular Hemoglobin Concent 31.3 L Red Cell Distribution Width 19.4 H Platelet Count 204 Mean Platelet Volume 10.7 H Immature Granulocytes % 0.300 Neutrophils % 42.8 Lymphocytes % 24.4 Monocytes % 19.2 H Eosinophils % 12.3 H Basophils % 1.0 Nucleated Red Blood Cells % 0.0 Immature Granulocytes # 0.010 Neutrophils # 1.7 Lymphocytes # 1.0 Monocytes # 0.8 Eosinophils # 0.5 Basophils # 0.0 Nucleated Red Blood Cells # 0.0 Sodium Level 140 Potassium Level 3.8 Chloride Level 108 Carbon Dioxide Level 28 Anion Gap 4 L Blood Urea Nitrogen 17 Creatinine 1.65 H Est Glomerular Filtrat Rate mL/min 43 L Glucose Level 84 Calcium Level 9.7 Phosphorus Level 3.1 Magnesium Level 2.1 Total Bilirubin 0.4 Direct Bilirubin 0.00 Indirect Bilirubin 0.4 Aspartate Amino Transf (AST/SGOT) 61 H Alanine Aminotransferase (ALT/SGPT) 47 Alkaline Phosphatase 142 H Total Protein 7.3 Albumin 3.6 Globulin 3.70 H Albumin/Globulin Ratio 0.97 Medications Medication Current Medications Miscellaneous Information (Pending [facility] Order For Wound Care) This patient yi... PRN PRN XX WOUND CARE; Start 10/08/18 at 17:00 Acetaminophen (Tylenol Tab) 650 mg Q6H PRN PO MILD PAIN(1-3)OR ELEVATED TEMP; Start 10/08/18 at 17:00 Amiodarone HCl (Cordarone) 200 mg BID PO Last administered on 10/20/18 09:57; Admin Dose 200 MG; Start 10/08/18 at 21:00 Apixaban (Eliquis) 2.5 mg BID PO Last administered on 10/20/18 08:44; Admin Dose 2.5 MG; Start 10/08/18 at 21:00 Diltiazem HCl (Cardizem Cd) 240 mg DAILY PO Last administered on 10/20/18 08:45; Admin Dose 240 MG; Start 10/09/18 at 09:00 Folic Acid (Folic Acid) 1 mg DAILY PO Last administered on 10/20/18 08:43; Admin Dose 1 MG; Start 10/09/18 at 09:00 Famotidine (Pepcid) 20 mg BID PO Last administered on 10/20/18 08:43; Admin Dose 20 MG; Start 10/08/18 at 21:00 Hydromorphone HCl (Dilaudid) 1 mg Q4H PRN IV SEVERE PAIN LEVEL 7-10 Last administered on 10/20/18 10:06; Admin Dose 1 MG; Start 10/08/18 at 17:00 Multivit/Ca Carb/ B Cmplx/FA/Prenat (Flor-Elisa) 1 tab DAILY PO Last administered on 10/20/18 08:42; Admin Dose 1 TAB; Start 10/09/18 at 09:00 Magnesium Hydroxide (Milk Of Mag) 30 ml DAILY PRN PO CONSTIPATION; Start 10/08/18 at 17:00 Docusate Sodium (Colace) 100 mg DAILY PO Last administered on 10/20/18 08:43; Admin Dose 100 MG; Start 10/09/18 at 09:00 Tacrolimus (Prograf) 0.5 mg BID PO Last administered on 10/20/18 09:58; Admin Dose 0.5 MG; Start 10/12/18 at 09:00 Gabapentin (Neurontin) 100 mg HS PO Last administered on 10/19/18 21:21; Admin Dose 100 MG; Start 10/12/18 at 21:00 Cinacalcet (Sensipar) 30 mg DAILY PO Last administered on 10/20/18 08:43; Admin Dose 30 MG; Start 10/12/18 at 14:00 Collagenase (Santyl) 1 applic DAILY TOP Last administered on 10/20/18 10:05; Admin Dose 1 APPLIC; Start 10/14/18 at 14:00 Sodium Phosphate (Kphos Neutral) 250 mg BID PO Last administered on 10/20/18 09:53; Admin Dose 250 MG; Start 10/15/18 at 09:00 Acetaminophen/ Hydrocodone Bitart ([place] (5/325)) 1 tab Q4H PRN PO MODERATE PAIN LEVEL 1-5; Start 10/16/18 at 21:00 Acetaminophen/ Hydrocodone Bitart ([place] (5/325)) 2 tab Q4H PRN PO MODERATE PAIN LEVEL >5 Last administered on 7/7/19at 08:46; Admin Dose 2 TAB; Start 10/16/18 at 21:00 Magnesium Oxide (Mag-Ox 400) 400 mg BID PO Last administered on 10/20/18at 08:43; Admin Dose 400 MG; Start 10/18/18 at 21:00 ERIN MONTOYA MD Oct 20, 2018 13:06
[2018-10-20] MEDS: METOPROLOL (XL) 25 MG TAB PO SCH (13:23)
[2018-10-20 14:00] VITALS: BP 140/60; PULSE 88; RESP 18
--- NOTE | 2018-10-20 14:59 | CONS ---
[facility] HCIS Consult Follow-up Patient Name: Alphonso Lee Unit Number: [id number] Date of : 1960 Patient Status: Admitted Inpatient Attending Doctor: Fito Landaverde MD,[facility] Edit: CLARE PIRES M.D. on 10/21/18 @ 22:14 Pranay: I discussed the management with GEORGE Marti and agree Assessment/Plan Assessment/Plan Hospital Course (Demo Recall) # sepsis, musculoskeletal, derm - h/o sepsis due infected left BKA stump - h/o infected L BKA stump site - h/o further revision of L BKA site and wound vac placement on 10/02/2018. Path showed gangrenous necrosis of skin and subcutaneous tissue, fibrous connective tissue and skeletal muscle tissue with focal necrosis, segment of bone with no evidence of osteomyelitis - h/o exploration and washout, debridement and VAC placement to L infected BKA site on 09/19/2018; The superficial wound culture grew B. fragilis on 09/18/2018; the intra-operative culture grew coag neg staph and B. fragilis on 09/19/18. CoNS was a likely colonizer; Pt took levofloxacin and metronidazole (09/17/2018- 10/04/2018) for these. The intra-operative fungal culture on 09/19/18 grew A. versicolor group, submitted reference lab for sensitivity; Pt took ambisome (10/02/2018-10/06/2018); the path was negative for malignancy. - h/o L BKA on 09/13/2018 - h/o draining wound, necrosis and infection of L TMA site (prior to L BKA). ESR 121 on 09/12/2018. # renal, cardiac - h/o renal transplant at [facility] in 2006, maintained on tacrolimus - h/o immunocompromised status - A fib with RVR, converted to SR - TWIN, multifactorial: Ambisome, tacrolimus, recent sepsis # other conditions - h/o transaminitis - adverse reaction to cefazolin (hives), meropenem (pruritus) Recommendations: - continue to monitor the wound closely off antibiotics - continue local wound care as per Dr. Cortes - await further recommendations from Dr. Cortes; I asked pt's nurse to notify Dr. Cortes of wound changes - if pt develops purulent drainage, we will collect sample and send for wound culture - Pt to f/u in office with Dr. Pires in 1 week post discharge. Plan was d/w patient, pt's , RN Nhet and with Dr. Pires. Consultation Date/Type/Reason Admit Date/Time Oct 08, 2018 at 16:11 Initial Consult Date 10/08/18 Type of Consult Infectious Disease Requesting Provider: FITO LANDAVERDE MD, [facility] Date/Time of Note DATE: 10/20/18 TIME: 14:59 24 HR Interval Summary Free Text/Dictation is concerned that pt is having LLE pain. C/o mild pain to LLE stump rating 4/10. Dressing was changed today and photo was taken. Eschar appears to be spreading. No SOB, n/v/d, dysuria. Exam/Review of Systems Exam Vitals Vital Signs Date Temp Pulse Resp B/P (MAP) Pulse Ox O2 O2 Flow FiO2 Time Delivery Rate 10/20/18 97.9 75 165/97 98 Room Air 07:55 (119) 10/20/18 18 02:00 10/19/18 2.0 14:00 Intake and Output 10/19/18 10/19/18 10/20/18 1515:00 23:00 07:00 IntakeIntake Total 760 ml 800 ml OutputOutput Total 250 ml 400 ml BalanceBalance 510 ml 400 ml Exam Constitutional: alert, oriented, well developed, other (sitting up in bed eating; at bedside) Psych: no complaints, nl mood/affect (smiling) Head: normocephalic, atraumatic (wearing glasses) Eyes: nl conjunctiva, nl lids, nl sclera ENMT: nl external ears & nose, nl nasal mucosa & septum, mucosa pink and moist (no thrush) Neck: supple, non-tender Respiratory: clear to auscultation, normal air movement; No wheezing Cardiovascular: regular rate and rhythm, nl pulses Gastrointestinal: soft, non-tender, bowel sounds (normoactive) No distended Musculoskeletal: other (S/p L BKA) Extremities: No edea; other (L BKA dressing/KATHIE bandage c/d/i. Nurses notes and photos from today were reviewed and eschar appears to be increasing compared to a couple days ago) 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: nl mental status, nl speech Skin: nl turgor, other (BUE old AVF sites); No rash or lesions Results Result Diagram: 10/20/1830 10/20/18 0630 Results 24hrs Laboratory Tests Test 10/20/18 06:30 White Blood Count 3.9 #L Red Blood Count 3.97 L Hemoglobin 11.0 L Hematocrit 35.2 L Mean Corpuscular Volume 88.7 Mean Corpuscular Hemoglobin 27.7 L Mean Corpuscular Hemoglobin Concent 31.3 L Red Cell Distribution Width 19.4 H Platelet Count 204 Mean Platelet Volume 10.7 H Immature Granulocytes % 0.300 Neutrophils % 42.8 Lymphocytes % 24.4 Monocytes % 19.2 H Eosinophils % 12.3 H Basophils % 1.0 Nucleated Red Blood Cells % 0.0 Immature Granulocytes # 0.010 Neutrophils # 1.7 Lymphocytes # 1.0 Monocytes # 0.8 Eosinophils # 0.5 Basophils # 0.0 Nucleated Red Blood Cells # 0.0 Sodium Level 140 Potassium Level 3.8 Chloride Level 108 Carbon Dioxide Level 28 Anion Gap 4 L Blood Urea Nitrogen 17 Creatinine 1.65 H Est Glomerular Filtrat Rate mL/min 43 L Glucose Level 84 Calcium Level 9.7 Phosphorus Level 3.1 Magnesium Level 2.1 Total Bilirubin 0.4 Direct Bilirubin 0.00 Indirect Bilirubin 0.4 Aspartate Amino Transf (AST/SGOT) 61 H Alanine Aminotransferase (ALT/SGPT) 47 Alkaline Phosphatase 142 H Total Protein 7.3 Albumin 3.6 Globulin 3.70 H Albumin/Globulin Ratio 0.97 Medications Medication Current Medications Miscellaneous Information (Pending Santyl Order For Wound Care) This patient yi... PRN PRN XX WOUND CARE; Start 10/08/18 at 17:00 Acetaminophen (Tylenol Tab) 650 mg Q6H PRN PO MILD PAIN(1-3)OR ELEVATED TEMP; Start 10/08/18 at 17:00 Amiodarone HCl (Cordarone) 200 mg BID PO Last administered on 10/20/18 09:57; Admin Dose 200 MG; Start 10/08/18 at 21:00 Apixaban (Eliquis) 2.5 mg BID PO Last administered on 10/20/18 08:44; Admin Dose 2.5 MG; Start 10/08/18 at 21:00 Diltiazem HCl (Cardizem Cd) 240 mg DAILY PO Last administered on 10/20/18 08:45; Admin Dose 240 MG; Start 10/09/18 at 09:00 Folic Acid (Folic Acid) 1 mg DAILY PO Last administered on 10/20/18 08:43; Admin Dose 1 MG; Start 10/09/18 at 09:00 Famotidine (Pepcid) 20 mg BID PO Last administered on 10/20/18 08:43; Admin Dose 20 MG; Start 10/08/18 at 21:00 Hydromorphone HCl (Dilaudid) 1 mg Q4H PRN IV SEVERE PAIN LEVEL 7-10 Last administered on 10/20/18 13:25; Admin Dose 1 MG; Start 10/08/18 at 17:00 Multivit/Ca Carb/ B Cmplx/FA/Prenat (Flor-Elisa) 1 tab DAILY PO Last administered on 10/20/18 08:42; Admin Dose 1 TAB; Start 10/09/18 at 09:00 Magnesium Hydroxide (Milk Of Mag) 30 ml DAILY PRN PO CONSTIPATION; Start 10/08/18 at 17:00 Docusate Sodium (Colace) 100 mg DAILY PO Last administered on 10/20/18 08:43; Admin Dose 100 MG; Start 10/09/18 at 09:00 Tacrolimus (Prograf) 0.5 mg BID PO Last administered on 10/20/18 09:58; Admin Dose 0.5 MG; Start 10/12/18 at 09:00 Gabapentin (Neurontin) 100 mg HS PO Last administered on 10/19/18 21:21; Admin Dose 100 MG; Start 10/12/18 at 21:00 Cinacalcet (Sensipar) 30 mg DAILY PO Last administered on 10/20/18 08:43; Admin Dose 30 MG; Start 10/12/18 at 14:00 Collagenase (Santyl) 1 applic DAILY TOP Last administered on 10/20/18 10:05; Admin Dose 1 APPLIC; Start 10/14/18 at 14:00 Sodium Phosphate (Kphos Neutral) 250 mg BID PO Last administered on 10/20/18 09:53; Admin Dose 250 MG; Start 10/15/18 at 09:00 Acetaminophen/ Hydrocodone Bitart ([place] (5/325)) 1 tab Q4H PRN PO MODERATE PAIN LEVEL 1-5; Start 10/16/18 at 21:00 Acetaminophen/ Hydrocodone Bitart ([place] (5/325)) 2 tab Q4H PRN PO MODERATE PAIN LEVEL >5 Last administered on 10/20/18at 08:46; Admin Dose 2 TAB; Start 10/16/18 at 21:00 Magnesium Oxide (Mag-Ox 400) 400 mg BID PO Last administered on 10/20/18 08:43; Admin Dose 400 MG; Start 10/18/18 at 21:00 Metoprolol Succinate (Toprol Xl) 25 mg DAILY PO Last administered on 10/20/18at 13:23; Admin Dose 25 MG; Start 10/20/18 at 13:30 ROSALBA MARTI NP Oct 20, 2018 14:59
--- NOTE | 2018-10-20 19:00 | PN ---
Date/Time of Note Date/Time of Note DATE: 10/20/18 TIME: 18:58 Assessment/Plan VTE Prophylaxis Risk score (from Ns)>0 risk: 3 SCD applied (from [facility]): No SCD contraindicated: other Pharmacological prophylaxis: apixaban Lines/Catheters IV [facility]ter Type (from [facility]): Mid Line Urinary Cath still in place: No Assessment/Plan Hospital Course Assessment/Plan Severe left peripheral artery disease with infected left TMA stump- stable - s/p Urgent left below-knee amputation on 09/13/2018 with washout. Further revision on 10/02. - on Eliquis - finished Antibiotics A. fib -s/p cards review-> Continue on amiodarone until 10/20, 1 month tx. continue on diltiazem -cont ATC S/p Sepsis secondary to lower extremity infection - s/p abx completion - resolved Peripheral vascular disease. - Continue statins History of renal transplant. - nephrology following. - avoiding nephrotoxic agents - continue immunosuppressants Normocytic anemia - stable HLD - on statin Hyperparathyroidism -continue current tx Dispo/Plan. continue rehab services. monitor labs. f/u renal panel. monitor trend Discussed POC with Dr. Torrez Result Diagram: 10/20/18 0630 10/20/18 0630 Results 24hrs Laboratory Tests Test 10/20/18 06:30 White Blood Count 3.9 #L Red Blood Count 3.97 L Hemoglobin 11.0 L Hematocrit 35.2 L Mean Corpuscular Volume 88.7 Mean Corpuscular Hemoglobin 27.7 L Mean Corpuscular Hemoglobin Concent 31.3 L Red Cell Distribution Width 19.4 H Platelet Count 204 Mean Platelet Volume 10.7 H Immature Granulocytes % 0.300 Neutrophils % 42.8 Lymphocytes % 24.4 Monocytes % 19.2 H Eosinophils % 12.3 H Basophils % 1.0 Nucleated Red Blood Cells % 0.0 Immature Granulocytes # 0.010 Neutrophils # 1.7 Lymphocytes # 1.0 Monocytes # 0.8 Eosinophils # 0.5 Basophils # 0.0 Nucleated Red Blood Cells # 0.0 Sodium Level 140 Potassium Level 3.8 Chloride Level 108 Carbon Dioxide Level 28 Anion Gap 4 L Blood Urea Nitrogen 17 Creatinine 1.65 H Est Glomerular Filtrat Rate mL/min 43 L Glucose Level 84 Calcium Level 9.7 Phosphorus Level 3.1 Magnesium Level 2.1 Total Bilirubin 0.4 Direct Bilirubin 0.00 Indirect Bilirubin 0.4 Aspartate Amino Transf (AST/SGOT) 61 H Alanine Aminotransferase (ALT/SGPT) 47 Alkaline Phosphatase 142 H Total Protein 7.3 Albumin 3.6 Globulin 3.70 H Albumin/Globulin Ratio 0.97 Subjective 24 Hr Interval Summary Free Text/Dictation was seen this morning resting in bed.. at bedside. no specific complaints during visit Exam/Review of Systems Exam Vitals Vital Signs Date Temp Pulse Resp B/P (MAP) Pulse Ox O2 O2 Flow FiO2 Time Delivery Rate 10/20/18 97.9 75 165/97 98 Room Air 07:55 (119) 10/20/18 18 02:00 10/19/18 2.0 14:00 Intake and Output 10/19/18 10/19/18 10/20/18 1515:00 23:00 07:00 IntakeIntake Total 760 ml 800 ml OutputOutput Total 250 ml 400 ml BalanceBalance 510 ml 400 ml Exam Constitutional: alert, oriented Psych: nl mood/affect Head: normocephalic Neck: supple, non-tender Cardiovascular: regular rate and rhythm Gastrointestinal: soft, non-tender Musculoskeletal: other (lle bka) 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: TIG WELDER II-XII intact, nl mental status, nl speech Results Results 24hrs Laboratory Tests Test 10/20/18 06:30 White Blood Count 3.9 #L Red Blood Count 3.97 L Hemoglobin 11.0 L Hematocrit 35.2 L Mean Corpuscular Volume 88.7 Mean Corpuscular Hemoglobin 27.7 L Mean Corpuscular Hemoglobin Concent 31.3 L Red Cell Distribution Width 19.4 H Platelet Count 204 Mean Platelet Volume 10.7 H Immature Granulocytes % 0.300 Neutrophils % 42.8 Lymphocytes % 24.4 Monocytes % 19.2 H Eosinophils % 12.3 H Basophils % 1.0 Nucleated Red Blood Cells % 0.0 Immature Granulocytes # 0.010 Neutrophils # 1.7 Lymphocytes # 1.0 Monocytes # 0.8 Eosinophils # 0.5 Basophils # 0.0 Nucleated Red Blood Cells # 0.0 Sodium Level 140 Potassium Level 3.8 Chloride Level 108 Carbon Dioxide Level 28 Anion Gap 4 L Blood Urea Nitrogen 17 Creatinine 1.65 H Est Glomerular Filtrat Rate mL/min 43 L Glucose Level 84 Calcium Level 9.7 Phosphorus Level 3.1 Magnesium Level 2.1 Total Bilirubin 0.4 Direct Bilirubin 0.00 Indirect Bilirubin 0.4 Aspartate Amino Transf (AST/SGOT) 61 H Alanine Aminotransferase (ALT/SGPT) 47 Alkaline Phosphatase 142 H Total Protein 7.3 Albumin 3.6 Globulin 3.70 H Albumin/Globulin Ratio 0.97 Medications Medication Current Medications Miscellaneous Information (Pending Santyl Order For Wound Care) This patient yi... PRN PRN XX WOUND CARE; Start 10/08/18 at 17:00 Acetaminophen (Tylenol Tab) 650 mg Q6H PRN PO MILD PAIN(1-3)OR ELEVATED TEMP; Start 10/08/18 at 17:00 Amiodarone HCl (Cordarone) 200 mg BID PO Last administered on 10/20/18 09:57; Admin Dose 200 MG; Start 10/08/18 at 21:00 Apixaban (Eliquis) 2.5 mg BID PO Last administered on 10/20/18 08:44; Admin Dose 2.5 MG; Start 10/08/18 at 21:00 Diltiazem HCl (Cardizem Cd) 240 mg DAILY PO Last administered on 10/20/18 08:45; Admin Dose 240 MG; Start 10/09/18 at 09:00 Folic Acid (Folic Acid) 1 mg DAILY PO Last administered on 10/20/18 08:43; Admin Dose 1 MG; Start 10/09/18 at 09:00 Famotidine (Pepcid) 20 mg BID PO Last administered on 10/20/18 08:43; Admin Dose 20 MG; Start 10/08/18 at 21:00 Hydromorphone HCl (Dilaudid) 1 mg Q4H PRN IV SEVERE PAIN LEVEL 7-10 Last administered on 10/20/18 17:44; Admin Dose 1 MG; Start 10/08/18 at 17:00 Multivit/Ca Carb/ B Cmplx/FA/Prenat (Flor-Elisa) 1 tab DAILY PO Last administered on 10/20/18 08:42; Admin Dose 1 TAB; Start 10/09/18 at 09:00 Magnesium Hydroxide (Milk Of Mag) 30 ml DAILY PRN PO CONSTIPATION; Start 10/08/18 at 17:00 Docusate Sodium (Colace) 100 mg DAILY PO Last administered on 10/20/18 08:43; Admin Dose 100 MG; Start 10/09/18 at 09:00 Tacrolimus (Prograf) 0.5 mg BID PO Last administered on 10/20/18 09:58; Admin Dose 0.5 MG; Start 10/12/18 at 09:00 Gabapentin (Neurontin) 100 mg HS PO Last administered on 10/19/18 21:21; Admin Dose 100 MG; Start 10/12/18 at 21:00 Cinacalcet (Sensipar) 30 mg DAILY PO Last administered on 10/20/18 08:43; Admin Dose 30 MG; Start 10/12/18 at 14:00 Collagenase (Santyl) 1 applic DAILY TOP Last administered on 10/20/18 10:05; Admin Dose 1 APPLIC; Start 10/14/18 at 14:00 Sodium Phosphate (Kphos Neutral) 250 mg BID PO Last administered on 10/20/18 09:53; Admin Dose 250 MG; Start 10/15/18 at 09:00 Acetaminophen/ Hydrocodone Bitart ([place] (5/325)) 1 tab Q4H PRN PO MODERATE PAIN LEVEL 1-5; Start 10/16/18 at 21:00 Acetaminophen/ Hydrocodone Bitart ([place] (5/325)) 2 tab Q4H PRN PO MODERATE PAIN LEVEL >5 Last administered on 10/20/18 08:46; Admin Dose 2 TAB; Start 10/16/18 at 21:00 Magnesium Oxide (Mag-Ox 400) 400 mg BID PO Last administered on 10/20/18 08:43; Admin Dose 400 MG; Start 10/18/18 at 21:00 Metoprolol Succinate (Toprol Xl) 25 mg DAILY PO Last administered on 10/20/18 13:23; Admin Dose 25 MG; Start 10/20/18 at 13:30 CORY ANDREW NP Oct 20, 2018 19:00
[2018-10-20 20:00] VITALS: BP 115/67; PULSE 63; RESP 18
[2018-10-20] MEDS: GABAPENTIN 100 MG CAP PO SCH (21:24)
[2018-10-21 02:15] VITALS: BP 121/67; PULSE 59; RESP 18
[2018-10-21 07:00] VITALS: BP 128/78; PULSE 65; RESP 18
--- NOTE | 2018-10-21 09:21 | CONS ---
Assessment/Plan Assessment/Plan Hospital Course (Demo Recall) 1. Kidney transplant status. He underwent a cadaveric kidney transplant in 2006 at [facility]. He is on immunosuppressive therapy. We are aiming for a tacrolimus trough level of 5. I will continue current medication. His serum creatinine is slightly lower today. 2. Anemia 3. Hypertension, his blood pressure has been high. I will add metoprolol XL. 4. Peripheral artery disease status post left below the knee amputation. The wound is more necrotic than when I last saw it . He may need more surgery on the left leg stump. Will await return of vascular surgeon. He is now on the acute rehab unit for a comprehensive rehabilitation program . 5. Hyperparathyroidism . 6. Hypomagnesemia and hypophosphatemia due to tacrolimus causing losses through the kidney. I will restart oral phosphorus tablets and oral magnesium tablets Consultation Date/Type/Reason Admit Date/Time Oct 08, 2018 at 16:11 Initial Consult Date 10/08/18 Type of Consult Nephrology Requesting Provider: FITO GAY MD, [facility] Date/Time of Note DATE: 10/21/18 TIME: 09:17 24 HR Interval Summary Free Text/Dictation This patient is being seen for nephrologic follow-up. He is awake and alert. He is complaining of a headache. Exam/Review of Systems Exam Vitals Vital Signs Date Temp Pulse Resp B/P (MAP) Pulse Ox O2 O2 Flow FiO2 Time Delivery Rate 10/21/18 98.0 59 18 121/67 98 Room Air 02:15 (85) 10/19/18 2.0 14:00 Intake and Output 10/20/18 10/20/18 10/21/18 1515:00 23:00 07:00 IntakeIntake Total 810 ml OutputOutput Total 280 ml BalanceBalance 530 ml Exam Left leg is status post a below the knee amputation. The stump has some necrotic areas. Constitutional: alert, oriented, frail Respiratory: clear to auscultation, normal air movement Cardiovascular: regular rate and rhythm Gastrointestinal: soft Results Result Diagram: 10/20/18 0630 10/21/18 0646 Results 24hrs Laboratory Tests Test 10/21/18 06:46 Sodium Level 140 Potassium Level 4.1 Chloride Level 108 Carbon Dioxide Level 26 Anion Gap 6 Blood Urea Nitrogen 18 Creatinine 1.62 H Est Glomerular Filtrat Rate mL/min 44 L Glucose Level 85 Calcium Level 9.8 Total Bilirubin 0.4 Direct Bilirubin 0.00 Indirect Bilirubin 0.4 Aspartate Amino Transf (AST/SGOT) 58 H Alanine Aminotransferase (ALT/SGPT) 47 Alkaline Phosphatase 132 H Total Protein 7.0 Albumin 3.6 Globulin 3.40 H Albumin/Globulin Ratio 1.05 Medications Medication Current Medications Miscellaneous Information (Pending Santyl Order For Wound Care) This patient yi... PRN PRN XX WOUND CARE; Start 10/08/18 at 17:00 Acetaminophen (Tylenol Tab) 650 mg Q6H PRN PO MILD PAIN(1-3)OR ELEVATED TEMP; Start 10/08/18 at 17:00 Amiodarone HCl (Cordarone) 200 mg BID PO Last administered on 10/20/18 21:24; Admin Dose 200 MG; Start 10/08/18 at 21:00 Apixaban (Eliquis) 2.5 mg BID PO Last administered on 10/20/18 21:24; Admin Dose 2.5 MG; Start 10/08/18 at 21:00 Diltiazem HCl (Cardizem Cd) 240 mg DAILY PO Last administered on 10/20/18 08:45; Admin Dose 240 MG; Start 10/09/18 at 09:00 Folic Acid (Folic Acid) 1 mg DAILY PO Last administered on 10/20/18 08:43; Admin Dose 1 MG; Start 10/09/18 at 09:00 Famotidine (Pepcid) 20 mg BID PO Last administered on 10/20/18 21:24; Admin Dose 20 MG; Start 10/08/18 at 21:00 Hydromorphone HCl (Dilaudid) 1 mg Q4H PRN IV SEVERE PAIN LEVEL 7-10 Last administered on 10/20/18 17:44; Admin Dose 1 MG; Start 10/08/18 at 17:00 Multivit/Ca Carb/ B Cmplx/FA/Prenat (Flor-Elisa) 1 tab DAILY PO Last ad ministered on 10/20/18 08:42; Admin Dose 1 TAB; Start 10/09/18 at 09:00 Magnesium Hydroxide (Milk Of Mag) 30 ml DAILY PRN PO CONSTIPATION; Start 10/08/18 at 17:00 Docusate Sodium (Colace) 100 mg DAILY PO Last administered on 10/20/18 08:43; Admin Dose 100 MG; Start 10/09/18 at 09:00 Tacrolimus (Prograf) 0.5 mg BID PO Last administered on 10/20/18 21:24; Admin Dose 0.5 MG; Start 10/12/18 at 09:00 Gabapentin (Neurontin) 100 mg HS PO Last administered on 10/20/18 21:24; Admin Dose 100 MG; Start 10/12/18 at 21:00 Cinacalcet (Sensipar) 30 mg DAILY PO Last administered on 10/20/18 08:43; Admin Dose 30 MG; Start 10/12/18 at 14:00 Collagenase (Santyl) 1 applic DAILY TOP Last administered on 10/20/18 10:05; Admin Dose 1 APPLIC; Start 10/14/18 at 14:00 Sodium Phosphate (Kphos Neutral) 250 mg BID PO Last administered on 10/20/18 21:23; Admin Dose 250 MG; Start 10/15/18 at 09:00 Acetaminophen/ Hydrocodone Bitart ([place] (5/325)) 1 tab Q4H PRN PO MODERATE PAIN LEVEL 1-5 Last administered on 10/20/18 21:25; Admin Dose 1 TAB; Start 10/16/18 at 21:00 Acetaminophen/ Hydrocodone Bitart ([place] (5/325)) 2 tab Q4H PRN PO MODERATE PAIN LEVEL >5 Last administered on 10/20/18 08:46; Admin Dose 2 TAB; Start 10/16/18 at 21:00 Magnesium Oxide (Mag-Ox 400) 400 mg BID PO Last administered on 10/20/18 21:24; Admin Dose 400 MG; Start 10/18/18 at 21:00 Metoprolol Succinate (Toprol Xl) 25 mg DAILY PO Last administered on 10/20/18 13:23; Admin Dose 25 MG; Start 10/20/18 at 13:30 ERIN MONTOYA MD Oct 21, 2018 09:21
[2018-10-21] MEDS: CINACALCET 30 MG TAB PO SCH (09:31)
[2018-10-21] MEDS: MULTIVIT/CA CARB/B CMPLX/FA TAB PO SCH (09:33)
[2018-10-21] MEDS: AMIODARONE 200 MG TAB PO SCH ×2 (09:33→21:10)
[2018-10-21] MEDS: APIXABAN 5 MG TABLET PO SCH ×2 (09:34→21:09)
[2018-10-21] MEDS: TACROLIMUS 0.5 MG CAP PO SCH ×2 (09:35→21:09)
[2018-10-21] MEDS: METOPROLOL (XL) 25 MG TAB PO SCH (09:35)
[2018-10-21] MEDS: DILTIAZEM (CD) 240 MG CAP PO SCH (09:36)
[2018-10-21] MEDS: SOD PHOS MONO/DIBAS 250 MG TAB PO SCH ×2 (09:36→21:09)
[2018-10-21] MEDS: FAMOTIDINE 20 MG TAB PO SCH ×2 (09:37→21:09)
[2018-10-21] MEDS: MAGNESIUM OXIDE 400 MG TAB PO SCH ×2 (09:37→21:09)
[2018-10-21] MEDS: FOLIC ACID 1 MG TAB PO SCH (09:37)
[2018-10-21] MEDS: DOCUSATE SODIUM 100 MG CAP PO SCH (09:37)
[2018-10-21] MEDS: COLLAGENASE 5 GM (UD JAR) TOP SCH (09:38)
--- NOTE | 2018-10-21 11:30 | CONS ---
[facility] HCIS Consult Follow-up Patient Name: Alphonso Lee Unit Number: [id number] Date of : 1960 Patient Status: Admitted Inpatient Attending Doctor: Fito Landaverde MD,[facility] Edit: CLARE PIRES M.D. on 10/21/18 @ 22:13 Pranay: I discussed the management with COMPUTER REPAIR TECHNICIAN Augustine and agree Assessment/Plan Assessment/Plan Hospital Course (Demo Recall) Assessment/Impression: # sepsis, musculoskeletal, derm - h/o sepsis due infected left BKA stump - h/o infected L BKA stump site - h/o further revision of L BKA site and wound vac placement on 10/02/2018. Path showed gangrenous necrosis of skin and subcutaneous tissue, fibrous connective tissue and skeletal muscle tissue with focal necrosis, segment of bone with no evidence of osteomyelitis - h/o exploration and washout, debridement and VAC placement to L infected BKA site on 09/19/2018; The superficial wound culture grew B. fragilis on 09/18/2018; the intra-operative culture grew coag neg staph and B. fragilis on 09/19/18. CoNS was a likely colonizer; Pt took levofloxacin and metronidazole (09/17/2018- 10/04/2018) for these. The intra-operative fungal culture on 09/19/18 grew A. versicolor group, submitted reference lab for sensitivity; Pt took ambisome (10/02/2018-10/06/2018); the path was negative for malignancy. - h/o L BKA on 09/13/2018 - h/o draining wound, necrosis and infection of L TMA site (prior to L BKA). ESR 121 on 09/12/2018. - S/p bedside debridement by of the L stump on 10/21/18 # renal, cardiac - h/o renal transplant at [facility] in 2007, maintained on tacrolimus - h/o immunocompromised status - A fib with RVR, converted to SR - TWIN, multifactorial: Ambisome, tacrolimus, recent sepsis # other conditions - h/o transaminitis - adverse reaction to cefazolin (hives), meropenem (pruritus) Recommendations: - continue to monitor the wound closely off antibiotics - continue local wound care as per Dr. Cortes - If pt develops purulent drainage, we will collect sample and send for wound culture - Pt to f/u in office with Dr. Pires in 1 week post discharge. Plan was d/w patient, nurse Miguelina and with Dr. Pires. Consultation Date/Type/Reason Admit Date/Time Oct 08, 2018 at 16:11 Initial Consult Date 10/08/18 Requesting Provider: FITO LANDAVERDE MD, [facility] Date/Time of Note DATE: 10/21/18 TIME: 11:30 24 HR Interval Summary Free Text/Dictation Per d/w nurse Miguelina, seen and evaluated pt today and did bedside debridement of the stump wound. Per d/w nurse Miguelina she was told by the wound appears to be getting better and does not appear infected. Constitutional: no complaints Detailed Summary Eyes: no complaints ENT: no complaints Respiratory: no complaints Cardiovascular: no complaints Gastrointestinal: no complaints Genitourinary: no complaints Musculoskeletal: other (assistance with mobility and ambulating) Skin: other (R stump wound ) Neurologic: no complaints Exam/Review of Systems Exam Vitals Vital Signs Date Temp Pulse Resp B/P (MAP) Pulse Ox O2 O2 Flow FiO2 Time Delivery Rate 10/21/18 97.5 65 18 128/78 100 Room Air 07:00 (95) 10/19/18 2.0 14:00 Intake and Output 10/20/18 10/20/18 10/21/18 1515:00 23:00 07:00 IntakeIntake Total 810 ml OutputOutput Total 280 ml BalanceBalance 530 ml Constitutional: alert, oriented Psych: no complaints, nl mood/affect Head: normocephalic, atraumatic Eyes: EOMI, PERRL ENMT: mucosa pink and moist Neck: supple Respiratory: clear to auscultation, normal air movement Cardiovascular: regular rate and rhythm; No edema Gastrointestinal: soft, non-tender, bowel sounds; No distended, No rebound or guarding, No tender Musculoskeletal: other (s/p L BKA) Extremities: No edema 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: nl mental status, nl speech Skin: other (L BKA with eschar no purulent drainage no s/s infection, see nurse notes and photos in chart. ) Results Result Diagram: 10/20/18 0630 10/21/18 0646 Results 24hrs Laboratory Tests Test 10/21/18 06:45 10/21/18 06:46 Phosphorus Level 3.2 Magnesium Level 2.1 Sodium Level 140 Potassium Level 4.1 Chloride Level 108 Carbon Dioxide Level 26 Anion Gap 6 Blood Urea Nitrogen 18 Creatinine 1.62 H Est Glomerular Filtrat Rate mL/min 44 L Glucose Level 85 Calcium Level 9.8 Total Bilirubin 0.4 Direct Bilirubin 0.00 Indirect Bilirubin 0.4 Aspartate Amino Transf (AST/SGOT) 58 H Alanine Aminotransferase (ALT/SGPT) 47 Alkaline Phosphatase 132 H Total Protein 7.0 Albumin 3.6 Globulin 3.40 H Albumin/Globulin Ratio 1.05 Imaging Imaging [place] [address] Radiology Main Line: [phone] DIAGNOSTIC IMAGING REPORT Patient: ALPHONSO LEE : 1960 Age: 58 Sex: M MR #: [id number] DOS: 10/11/18 0000 Ordering MD: ERIN MONTOYA MD Location: [facility] Room/Bed: [facility] PROCEDURE: US Renal Transplant With Doppler CLINICAL INDICATION: Right lower quadrant renal transplant graft. Acute renal failure. TECHNIQUE: Real-time ultrasound of a transplant kidney with color Doppler flow imaging, spectral waveform analysis and image documentation. COMPARISON: None FINDINGS: TRANSPLANT KIDNEY: Right lower quadrant renal transplant graft. The graft measures 11.2 cm in length. Renal cortical thickness is normal. There is a 2.9 cm cortical cyst noted. Multiple nonobstructing renal calculi noted measuring up to 15 mm. No hydronephrosis. RENAL ARTERY: Not demonstrated. RENAL VEIN: Not demonstrated. FREE FLUID: No peritransplant fluid collection. IMPRESSION: 1. Right lower quadrant renal transplant graft demonstrating nephrolithiasis, but no hydronephrosis. 2. Normal renal cortical thickness of the transplant graft. 3. No acute abnormality demonstrated. No Doppler examination performed. RPTAT: [facility] Blanca Bazan, Physician Hair Assistant Date Time Electronically viewed and signed by Blanca Bazan, Physician Hair Assistant on 10/11/2018 21:40 Medications Medication Current Medications Miscellaneous Information (Pending Santyl Order For Wound Care) This patient yi... PRN PRN XX WOUND CARE; Start 10/08/18 at 17:00 Acetaminophen (Tylenol Tab) 650 mg Q6H PRN PO MILD PAIN(1-3)OR ELEVATED TEMP Last administered on 10/21/18 09:38; Admin Dose 650 MG; Start 10/08/18 at 17:00 Amiodarone HCl (Cordarone) 200 mg BID PO Last administered on 10/21/18 09:33; Admin Dose 200 MG; Start 10/08/18 at 21:00 Apixaban (Eliquis) 2.5 mg BID PO Last administered on 10/21/18 09:34; Admin Dose 2.5 MG; Start 10/08/18 at 21:00 Diltiazem HCl (Cardizem Cd) 240 mg DAILY PO Last administered on 10/21/18 09:36; Admin Dose 240 MG; Start 10/09/18 at 09:00 Folic Acid (Folic Acid) 1 mg DAILY PO Last administered on 10/21/18 09:37; Admin Dose 1 MG; Start 10/09/18 at 09:00 Famotidine (Pepcid) 20 mg BID PO Last administered on 10/21/18 09:37; Admin Do se 20 MG; Start 10/08/18 at 21:00 Hydromorphone HCl (Dilaudid) 1 mg Q4H PRN IV SEVERE PAIN LEVEL 7-10 Last administered on 10/20/18 17:44; Admin Dose 1 MG; Start 10/08/18 at 17:00 Multivit/Ca Carb/ B Cmplx/FA/Prenat (Flor-Elisa) 1 tab DAILY PO Last administered on 10/21/18 09:33; Admin Dose 1 TAB; Start 10/09/18 at 09:00 Magnesium Hydroxide (Milk Of Mag) 30 ml DAILY PRN PO CONSTIPATION; Start at 17:00 Docusate Sodium (Colace) 100 mg DAILY PO Last administered on 10/21/18 09:37; Admin Dose 100 MG; Start 10/09/18 at 09:00 Tacrolimus (Prograf) 0.5 mg BID PO Last administered on 10/21/18 09:35; Admin Dose 0.5 MG; Start 10/12/18 at 09:00 Gabapentin (Neurontin) 100 mg HS PO Last administered on 10/20/18 21:24; Admin Dose 100 MG; Start 10/12/18 at 21:00 Cinacalcet (Sensipar) 30 mg DAILY PO Last administered on 10/21/18 09:31; Admin Dose 30 MG; Start 10/12/18 at 14:00 Collagenase (Santyl) 1 applic DAILY TOP Last administered on 10/21/18 09:38; Admin Dose 1 APPLIC; Start 10/14/18 at 14:00 Sodium Phosphate (Kphos Neutral) 250 mg BID PO Last administered on 10/21/18 09:36; Admin Dose 250 MG; Start 10/15/18 at 09:00 Acetaminophen/ Hydrocodone Bitart ([place] (5/325)) 1 tab Q4H PRN PO MODERATE PAIN LEVEL 1-5 Last administered on 10/20/18 21:25; Admin Dose 1 TAB; Start 10/16/18 at 21:00 Acetaminophen/ Hydrocodone Bitart ([place] (5/325)) 2 tab Q4H PRN PO MODERATE PAIN LEVEL >5 Last administered on 10/20/18 08:46; Admin Dose 2 TAB; Start 10/16/18 at 21:00 Magnesium Oxide (Mag-Ox 400) 400 mg BID PO Last administered on 10/21/18 09:37; Admin Dose 400 MG; Start 10/18/18 at 21:00 Metoprolol Succinate (Toprol Xl) 25 mg DAILY PO Last administered on 10/21/18 09:35; Admin Dose 25 MG; Start 10/20/18 at 13:30 GOGO ONEAL NP Oct 21, 2018 11:30
--- NOTE | 2018-10-21 12:05 | QN ---
Documentation Comment L BKA stump healing well, areas of dry superficial necrosis are getting smaller and there is good granulation in the medial aspect of the stump, no drainage or signs of infection - L BKA slowly improving - dry superficial necrosis slowly lisa but not getting worse by any means - OK for d/c from my standpoint, continue Santyl to the medial aspect and betadine along the incision - f/u with me in the APC next week AMARILIS RIBERA MD Oct 21, 2018 12:05
[2018-10-21 14:00] VITALS: BP 122/77; PULSE 62; RESP 18
--- NOTE | 2018-10-21 14:27 | PN ---
Date/Time of Note Date/Time of Note DATE: 10/21/18 TIME: 14:26 Objective Vital Signs Date Temp Pulse Resp B/P (MAP) Pulse Ox O2 O2 Flow FiO2 Time Delivery Rate 10/21/18 97.5 65 18 128/78 100 Room Air 07:00 (95) 10/19/18 2.0 14:00 Intake and Output 10/20/18 10/20/18 10/21/18 1515:00 23:00 07:00 IntakeIntake Total 810 ml OutputOutput Total 280 ml BalanceBalance 530 ml Exam INTERDISCIPLINARY TEAM CONFERENCE Attended by PT, OT, ST, Supervisor Pumping Station, Social Work, Rehabilitation Nursing, Refrigeration Engine Operator and Oyster FishermanWire Straightener Exam: Pulm- cta Abd-soft BOWEL- Cont BLADDER-Cont SKIN- improving OT- DRESSING- sba BATHING-cga TOILETING-cga PT- BED MOBILITY- OK TRANSFERS- OK AMBULATION- OK 100 feet A/P- Interdisciplinary team conference held today. Please see interdisciplinary sheet. Working toward d.c. on 10/22 with post discharge follow up of physical therapy, occupational therapy. Results/Medications Result Diagram: 10/20/18 0630 10/21/18 0646 Results 24 hrs Laboratory Tests Test 10/21/18 06:45 10/21/18 06:46 Phosphorus Level 3.2 Magnesium Level 2.1 Sodium Level 140 Potassium Level 4.1 Chloride Level 108 Carbon Dioxide Level 26 Anion Gap 6 Blood Urea Nitrogen 18 Creatinine 1.62 H Est Glomerular Filtrat Rate mL/min 44 L Glucose Level 85 Calcium Level 9.8 Total Bilirubin 0.4 Direct Bilirubin 0.00 Indirect Bilirubin 0.4 Aspartate Amino Transf (AST/SGOT) 58 H Alanine Aminotransferase (ALT/SGPT) 47 Alkaline Phosphatase 132 H Total Protein 7.0 Albumin 3.6 Globulin 3.40 H Albumin/Globulin Ratio 1.05 Medications Current Medications Miscellaneous Information [facility] This patient yi... PRN PRN XX WOUND CARE; Start 10/08/18 at 17:00 Acetaminophen (Tylenol Tab) 650 mg Q6H PRN PO MILD PAIN(1-3)OR ELEVATED TEMP Last administered on 10/21/18at 09:38; Admin Dose 650 MG; Start 10/08/18 at 17:00 Amiodarone HCl (Cordarone) 200 mg BID PO Last administered on 10/21/18 09:33; Admin Dose 200 MG; Start 10/08/18 at 21:00 Apixaban (Eliquis) 2.5 mg BID PO Last administered on 10/21/18 09:34; Admin Dos e 2.5 MG; Start 10/08/18 at 21:00 Diltiazem HCl (Cardizem Cd) 240 mg DAILY PO Last administered on 10/21/18 09:36; Admin Dose 240 MG; Start 10/09/18 at 09:00 Folic Acid (Folic Acid) 1 mg DAILY PO Last administered on 10/21/18 09:37; Admin Dose 1 MG; Start 10/09/18 at 09:00 Famotidine (Pepcid) 20 mg BID PO Last administered on 10/21/18 09:37; Admin Dose 20 MG; Start 10/08/18 at 21:00 Hydromorphone HCl (Dilaudid) 1 mg Q4H PRN IV SEVERE PAIN LEVEL 7-10 Last administered on 10/20/18 17:44; Admin Dose 1 MG; Start 10/08/18 at 17:00 Multivit/Ca Carb/ B Cmplx/FA/Prenat (Flor-Elisa) 1 tab DAILY PO Last administered on 10/21/18 09:33; Admin Dose 1 TAB; Start 10/09/18 at 09:00 Magnesium Hydroxide (Milk Of Mag) 30 ml DAILY PRN PO CONSTIPATION; Start 10/08/18 at 17:00 Docusate Sodium (Colace) 100 mg DAILY PO Last administered on 10/21/18 09:37; Admin Dose 100 MG; Start 10/09/18 at 09:00 Tacrolimus (Prograf) 0.5 mg BID PO Last administered on 10/21/18 09:35; Admin Dose 0.5 MG; Start 10/12/18 at 09:00 Gabapentin (Neurontin) 100 mg HS PO Last administered on 10/20/18 21:24; Admin Dose 100 MG; Start 10/12/18 at 21:00 Cinacalcet (Sensipar) 30 mg DAILY PO Last administered on 10/21/18 09:31; Admin Dose 30 MG; Start 10/12/18 at 14:00 Collagenase (Santyl) 1 applic DAILY TOP Last administered on 10/21/18 09:38; Admin Dose 1 APPLIC; Start 10/14/18 at 14:00 Sodium Phosphate (Kphos Neutral) 250 mg BID PO Last administered on 10/21/18 09:36; Admin Dose 250 MG; Start 10/15/18 at 09:00 Acetaminophen/ Hydrocodone Bitart ([place] (5/325)) 1 tab Q4H PRN PO MODERATE PAIN LEVEL 1-5 Last administered on 10/20/18 21:25; Admin Dose 1 TAB; Start 10/16/18 at 21:00 Acetaminophen/ Hydrocodone Bitart ([place] (5/325)) 2 tab Q4H PRN PO MODERATE PAIN LEVEL >5 Last administered on 10/20/18 08:46; Admin Dose 2 TAB; Start 10/16/18 at 21:00 Magnesium Oxide (Mag-Ox 400) 400 mg BID PO Last administered on 10/21/18 09:37; Admin Dose 400 MG; Start 10/18/18 at 21:00 Metoprolol Succinate (Toprol Xl) 25 mg DAILY PO Last administered on 10/21/18 09:35; Admin Dose 25 MG; Start 10/20/18 at 13:30 MERNA CALHOUN MD Oct 21, 2018 14:27
[2018-10-21 20:00] VITALS: BP_SYST 108; BP_SYST 137; BP_DIAS 60; BP_DIAS 64; PULSE 62; PULSE 87; RESP 18
[2018-10-21] MEDS: GABAPENTIN 100 MG CAP PO SCH (21:09)
[2018-10-22 02:11] VITALS: BP 122/71; PULSE 60; RESP 18
[2018-10-22 07:30] VITALS: BP 126/72; PULSE 61; RESP 18
--- NOTE | 2018-10-22 08:15 | CONS ---
Assessment/Plan Assessment/Plan Hospital Course (Demo Recall) 1. Kidney transplant status. He underwent a cadaveric kidney transplant in 2006 at [facility]. He is on immunosuppressive therapy. We are aiming for a tacrolimus trough level of 5. I will continue current medication. He is being discharged to an assisted living facility today. I will have laboratory tests done by the visiting nurse in 2 days. He will follow-up with me or his other safety risk lead as an outpatient. His dose of tacrolimus has been decreased to 0.5 mg twice a day. 2. Anemia 3. Hypertension, his blood pressure has been high. I will add metoprolol XL. 4. Peripheral artery disease status post left below the knee amputation. Vascular surgeon has seen the patient yesterday and thought that his left leg stump is doing well. The patient will be followed up as an outpatient by Dr. Cortes. 5. Hyperparathyroidism . 6. Hypomagnesemia and hypophosphatemia due to tacrolimus causing losses through the kidney. I will restart oral phosphorus tablets and oral magnesium tablets Consultation Date/Type/Reason Admit Date/Time Oct 08, 2018 at 16:11 Initial Consult Date 10/08/18 Type of Consult Nephrology Requesting Provider: FITO GAY MD, [facility] Date/Time of Note DATE: 10/22/18 TIME: 08:08 24 HR Interval Summary Free Text/Dictation This patient is being seen in nephrologic follow-up. He has a cadaveric kidney transplant and is on tacrolimus. Constitutional: no complaints Exam/Review of Systems Exam Vitals Vital Signs Date Temp Pulse Resp B/P (MAP) Pulse Ox O2 O2 Flow FiO2 Time Delivery Rate 10/22/18 97.9 60 18 122/71 99 Room Air 02:11 (88) 10/19/18 2.0 14:00 Intake and Output 10/21/18 10/21/18 10/22/18 1515:00 23:00 07:00 IntakeIntake Total 300 ml 1350 ml OutputOutput Total 900 ml 600 ml 400 ml BalanceBalance -600 ml 750 ml -400 ml Exam He is status post a left below the knee amputation. Constitutional: alert, oriented, frail ENMT: nl external ears & nose, nl lips & teeth Neck: supple Respiratory: clear to auscultation Cardiovascular: regular rate and rhythm Gastrointestinal: soft Results Result Diagram: 10/20/18 0630 10/21/18 0646 Medications Medication Current Medications Miscellaneous Information [facility] This patient yi... PRN PRN XX WOUND CARE; Start 10/08/18 at 17:00 Acetaminophen (Tylenol Tab) 650 mg Q6H PRN PO MILD PAIN(1-3)OR ELEVATED TEMP Last administered on 10/21/18 09:38; Admin Dose 650 MG; Start 10/08/18 at 17:00 Amiodarone HCl (Cordarone) 200 mg BID PO Last administered on 10/21/18 21:10; Admin Dose 200 MG; Start 10/08/18 at 21:00 Apixaban (Eliquis) 2.5 mg BID PO Last administered on 10/21/18 21:09; Admin Dose 2.5 MG; Start 10/08/18 at 21:00 Diltiazem HCl (Cardizem Cd) 240 mg DAILY PO Last administered on 10/21/18 09:36; Admin Dose 240 MG; Start 10/09/18 at 09:00 Folic Acid (Folic Acid) 1 mg DAILY PO Last administered on 10/21/18 09:37; Admin Dose 1 MG; Start 10/09/18 at 09:00 Famotidine (Pepcid) 20 mg BID PO Last administered on 10/21/18 21:09; Admin Dose 20 MG; Start 10/08/18 at 21:00 Hydromorphone HCl (Dilaudid) 1 mg Q4H PRN IV SEVERE PAIN LEVEL 7-10 Last administered on 10/20/18 17:44; Admin Dose 1 MG; Start 10/08/18 at 17:00 Multivit/Ca Carb/ B Cmplx/FA/Prenat (Flor-Elisa) 1 tab DAILY PO Last administered on 10/21/18 09:33; Admin Dose 1 TAB; Start 10/09/18 at 09:00 Magnesium Hydroxide (Milk Of Mag) 30 ml DAILY PRN PO CONSTIPATION; Start 10/08/18 at 17:00 Docusate Sodium (Colace) 100 mg DAILY PO Last administered on 10/21/18 09:37; Admin Dose 100 MG; Start 10/09/18 at 09:00 Tacrolimus (Prograf) 0.5 mg BID PO Last administered on 10/21/18 21:09; Admin Dose 0.5 MG; Start 10/12/18 at 09:00 Gabapentin (Neurontin) 100 mg HS PO Last administered on 10/21/18 21:09; Admin Dose 100 MG; Start 10/12/18 at 21:00 Cinacalcet (Sensipar) 30 mg DAILY PO Last administered on 10/21/18 09:31; Admin Dose 30 MG; Start 10/12/18 at 14:00 Collagenase (Santyl) 1 applic DAILY TOP Last administered on 10/21/18 09:38; Admin Dose 1 APPLIC; Start 10/14/18 at 14:00 Sodium Phosphate (Kphos Neutral) 250 mg BID PO Last administered on 10/21/18 21:09; Admin Dose 250 MG; Start 10/15/18 at 09:00 Acetaminophen/ Hydrocodone Bitart ([place] (5/325)) 1 tab Q4H PRN PO MODERATE PAIN LEVEL 1-5 Last administered on 10/20/18 21:25; Admin Dose 1 TAB; Start 10/16/18 at 21:00 Acetaminophen/ Hydrocodone Bitart ([place] (5/325)) 2 tab Q4H PRN PO MODERATE PAIN LEVEL >5 Last administered on 10/20/18 08:46; Admin Dose 2 TAB; Start 10/16/18 at 21:00 Magnesium Oxide (Mag-Ox 400) 400 mg BID PO Last administered on 10/21/18 21:09; Admin Dose 400 MG; Start 10/18/18 at 21:00 Metoprolol Succinate (Toprol Xl) 25 mg DAILY PO Last administered on 10/21/18 09:35; Admin Dose 25 MG; Start 10/20/18 at 13:30 ERIN MONTOYA MD Oct 22, 2018 08:15
[2018-10-22] MEDS: DILTIAZEM (CD) 240 MG CAP PO SCH (09:00)
[2018-10-22] MEDS: METOPROLOL (XL) 25 MG TAB PO SCH (09:00)
[2018-10-22] MEDS: DOCUSATE SODIUM 100 MG CAP PO SCH (09:00)
[2018-10-22] MEDS: TACROLIMUS 0.5 MG CAP PO SCH (09:45)
[2018-10-22] MEDS: COLLAGENASE 5 GM (UD JAR) TOP SCH (09:45)
[2018-10-22] MEDS: SOD PHOS MONO/DIBAS 250 MG TAB PO SCH (09:45)
[2018-10-22] MEDS: AMIODARONE 200 MG TAB PO SCH (09:46)
[2018-10-22] MEDS: APIXABAN 5 MG TABLET PO SCH (09:46)
[2018-10-22] MEDS: MAGNESIUM OXIDE 400 MG TAB PO SCH (09:47)
[2018-10-22] MEDS: CINACALCET 30 MG TAB PO SCH (09:47)
[2018-10-22] MEDS: FOLIC ACID 1 MG TAB PO SCH (09:47)
[2018-10-22] MEDS: FAMOTIDINE 20 MG TAB PO SCH (09:47)
[2018-10-22] MEDS: HYDROCODONE/APAP (5/325) TAB PO PRN (09:48)
[2018-10-22] MEDS: MULTIVIT/CA CARB/B CMPLX/FA TAB PO SCH (09:48)
--- NOTE | 2018-10-22 12:46 | DS ---
Date/Time of Note Date/Time of Note DATE: 10/22/18 TIME: 12:45 Discharge Summary Admission/Discharge Info Admit Date/Time Oct 08, 2018 at 16:11 Discharge Date/Time Discharge Diagnosis 1. Left below the knee amputation. 2. History of left transmetatarsal amputation with infection. 3. Hyperlipidemia. 4. End-stage renal disease, status post transplant. 5. Hypertension. 6. Atrial fibrillation. 7. Peripheral artery disease 7. Improvements in self-care and mobility. Patient Condition: Good Hospital Course The patient was admitted for comprehensive interdisciplinary rehabilitation and made steady functional gains from a Mod level to a SBA level for self care tasks and mobility including ambulating over 100 feet with the use of a FWW. Patient's wound was followed closely, and patient will f.u. with surgeon and PMD upon dc. Patient is being discharged home with the recommendation of home health PT, OT and RN follow up. The DC meds are per the medication reconciliation sheet. The discharge equipment recommendations include: FWW, BSC, shower chair. Home Meds Active Scripts Tacrolimus* (Prograf*) 1 Mg Capsule, 1 MG PO DAILY, #30 CAP Prov:CORY ANDREW NP 10/08/18 Calcitriol* (Calcitriol*) 0.25 Mcg Capsule, 0.25 MCG PO DAILY, #60 CAP Prov:CORY ANDREW NP 10/08/18 Apixaban* (Eliquis*) 5 Mg Tablet, 2.5 MG PO BID, #60 TAB Prov:REGCORY GARCIA NP 10/08/18 Diltiazem Hcl* (Cardizem CD*) 240 Mg Cap.sr.24h, 240 MG PO DAILY, #30 TAB Prov:CORY ANDREW NP 10/08/18 Amiodarone Hcl* (Amiodarone Hcl*) 200 Mg Tablet, 200 MG PO BID for 30 Days, TAB Prov:CORY ANDREW NP 10/08/18 Reported Medications Multivit/Ca Carb/B Cmplx/Fa* (Flor-Elisa*) 1 Tab Tab, 1 TAB PO DAILY, TAB 09/13/18 Folic Acid* (Folic Acid*) 1 Mg Tablet, 1 MG PO DAILY, TAB 09/13/18 Primary Care Provider MD UNIQUE Taylor LIVA L. MD Oct 22, 2018 12:46
== END 2018-10-22 13:45 | disposition home or self-care (01) | DRG 559 ==
LOC: VRC 16:11
PROVIDERS: ADMIT Physical Medicine & Rehabilitation; ATTEND Internal Medicine
DX: Z47.81 Encounter for orthopedic aftercare following surgical amputation (principal); N18.6 End stage renal disease; I12.0 Hypertensive chronic kidney disease with stage 5 chronic kidney disease or end stage renal disease; Z94.0 Kidney transplant status; I48.91 Unspecified atrial fibrillation; I73.9 Peripheral vascular disease, unspecified; E78.5 Hyperlipidemia, unspecified; E05.90 Thyrotoxicosis, unspecified without thyrotoxic crisis or storm; E83.42 Hypomagnesemia; Z89.512 Acquired absence of left leg below knee; E83.39 Other disorders of phosphorus metabolism; D63.8 Anemia in other chronic diseases classified elsewhere; E21.3 Hyperparathyroidism, unspecified
CPT/HCPCS: 76775; 80048; 80053; 80197; 81003; 83735; 84100; 85025; 87081; 87086; 97110; 97116; 97150; 97163; 97167; 97530; 97535; 97542; J1170; J7030; J7507